=== PATIENT | female | born 1935 | race Caucasian/White ===

== ENCOUNTER 2016-12-01 16:57 | Observation (INO) ==
--- NOTE | 2016-12-01 18:27 | Emergency Department Note ---
Disposition Clinical Impression: Neurological deficit, transient, Left maxillary sinusitis, Tremors of nervous system Disposition: Admitted As Inpatient Condition: Fair Referrals: Meagn Castro DO [Primary Care Provider] - Forms: ED Satisfaction Letter Time of Disposition: 19:36 General Adult HPI - General Chief complaint: ED Neuro Symptoms/Deficit Stated complaint: neuro symptoms since 11/29/16 Time Seen by Provider: 12/01/16 18:22 Source: patient, family Limitations: no limitations Nursing Notes Reviewed: Yes Vital Signs Reviewed: Yes - History of Present Illness Pain Scale: 0 - Related Data Home Medications Medication Instructions Recorded Confirmed Flonase 10/12/16 10/12/16 Loratadine 10/12/16 Losartan 10/12/16 Meclizine 10/12/16 Metoprolol 10/12/16 Pantoprazole Sodium 10/12/16 Vitamin D 10/12/16 Xanax 10/12/16 Allergies Allergy/AdvReac Type Severity Reaction Status Date / Time aspirin Allergy See Verified 10/12/16 18:14 Comments Past Medical History - Past Medical History Medical history: Reports: hypertension Psychiatric history: Reports: anxiety, depression - Social History Smoking Status: Never smoker Smokeless Tobacco Status: No Alcohol use: Reports: none Drug use: Reports: none Physical Exam - General Limitations: no limitations General appearance: alert Course Course Narrative: Patient seen and examined. Stroke workup initiated. Stroke a lot has not been called since patient's last known normal was 2 days ago - Consultations Consultation #1: Hospitalist consulted, Kisha LEIJA was briefed on patient. She has to consult with her physician to see if patient will be problematic if they do not have GI coverage. Time: 19:28 Vital Signs Temperature 97.9 F 12/01/16 17:16 Pulse Rate 99 12/01/16 17:16 Respiratory Rate 16 12/01/16 17:16 Blood Pressure 184/107 12/01/16 17:16 O2 Sat by Pulse Oximetry 98 12/01/16 17:16 Temperature 97.9 F 12/01/16 17:16 Pulse Rate 68 12/01/16 19:00 Respiratory Rate 16 12/01/16 19:00 Blood Pressure 176/100 12/01/16 19:00 O2 Sat by Pulse Oximetry 98 12/01/16 19:00 Oxygen Delivery Oxygen Delivery Room Air Medical Decision Making - MDM Narrative Medical decision making narrative: Mrs. saldivar was 81-year-old female who presents with a history of hypertension and gastro- esophageal reflux disease, the presents with history of acute onset of neurological deficits of verbal aphasia started 2 days ago while patient was on the phone. Patient states she has no history of stroke in the past. Patient states that her symptoms resolved on their own but then today she started having uncontrollable shivering-type tremors and some difficulty remembering events. Patient states she does not know how long her symptoms lasted. Patient's grandson brought her in after noticing that she was acting strangely and dragging her cane around and sit up using it for support. He also noticed that she sounded a little different. Patient's history is concerning for 2 day old stroke. Neurological exam showed no deficits. Patient has a mild right-sided drooped to her smile but otherwise shows no deficits. No loss of sensation. Patient's last known normal was 2 days ago and the patient's symptoms are not improving, so stroke alert was not initiated. Orders have been abbreviated for patient's current stage in her symptoms. Patient's NIH score is 0. Head CT: No intracranial abnormality seen. Patient does have an incidental finding of acute left maxillary sinusitis. Radiologist reading of chest x-ray 1. No active pulmonary disease. 2. Hiatal hernia. Patient's care will be continued with night crew. Dr. Holm has accepted patient for continued care and disposition. - Radiology Data Radiology results reviewed: Yes I reviewed the patient's radiology results. Head CT 12/01/16 18:40 IMPRESSION: No acute intracranial abnormality. Acute left maxillary sinusitis. D/ / Ty Gray MD / Ty Gray MD Interpreting Provider: Ty Gray MD Chest X-Ray 12/01/16 18:43 IMPRESSION: 1. No active pulmonary disease. 2. Hiatal hernia. D/ / Juan Nelson MD / Juan Nelson MD Interpreting Provider: Juan Nelson MD - EKG Data EKG #1 EKG attestation: Yes I reviewed and interpreted this EKG. EKG results narrative: EKG dated 12/01/2016 1857 hrs. shows a sinus rhythm and a ventricular rate of [address] elevations or depressions any leads. EKG looks equivalent to EKG taken 10/17/2014 Alanna - Alanna Situation: Demographics Background: Presenting Complaint, Relevant PMH, Meds, & Allergies Assessment: Vital Signs, Course and respsone to treatment, Exam Concerns, Pertinant Lab Results Recommendation: Recommendation based on pending studies, treatments, or consults Alanna Report Given to: Dr. Mihai Mondragon Repor Time: 19:00 Attestation Statement - Attestation Attestation: I examined this patient and my medical decision-making was reviewed with the FOUNDER & CEO/PA/Advanced Practice Nurse/Resident Physician. I agree with the documented findings, disposition and treatment plan as described except to the extent set forth below. Patient presents to the emergency department with shakiness and speech problems. Onset was 2 days ago. She states on Thursday she was talking to a friend and she had trouble finding her words. She feels shaky today. Family states that she is more confused than normal. She denies any falls or head injuries. On exam she is awake and alert. Appears to have a mild drooping of the right side of the mouth. Moves all extremities symmetrically. NIH scale was 1. Plan. Neurologic and altered mental status workup. Likely admission. Will be signed out to evening or night nurse supervisor.
--- NOTE | 2016-12-01 19:34 | Emergency Department Note ---
Disposition Clinical Impression: Neurological deficit, transient, Left maxillary sinusitis, Tremors of nervous system, Hyponatremia, Hypochloremia Disposition: Admitted As Inpatient Condition: Fair Time of Disposition: 22:02 Neuro HPI - General Chief Complaint: ED Neuro Symptoms/Deficit Stated Complaint: neuro symptoms since 11/29/16 Time Seen by Provider: 12/01/16 18:22 Source: patient, family Limitations: no limitations Nursing Notes Reviewed: Yes Vital Signs Reviewed: Yes - History of Present Illness HPI Narrative: Patient is an 81-year-old female with past medical history of hypertension and gastroesophageal reflux. She is a signout from the day team Dr. Lara and Dr. Miranda. She presented today due to verbal aphasia that began 2 days ago but is now resolved. She also has had confusion and difficulty with some basic tasks like using a credit card the family states is different for the patient. She has also had some mild difficulty with ambulation. Currently, she denies any symptoms. NIH score was 0 on presentation and was 0 again on my initial evaluation. Family states that they do not notice any facial droop, however, there may be mild droop of the left upper lip. Otherwise, rest of her exam was benign. Currently denies any numbness, tingling, weakness. Due to timing, stroke alert was not initiated by first team. Head CT is negative, chest x-ray shows no acute cardiopulmonary process. The rest of her labs are pending at this time. Plan for him to team was to admit for TIA workup. - Related Data Home Medications: Home Medications Medication Instructions Recorded Confirmed Alprazolam [Xanax 0.5 MG Tablet] 0.5 mg PO BID PRN 10/12/16 12/01/16 Cholecalciferol (D-3) [Vitamin D] 1,000 unit PO DAILY 10/12/16 12/01/16 Fluticasone Propionate Nasal 50 mcg NS DAILY 10/12/16 12/01/16 [Flonase] Loratadine [Claritin] 10 mg PO DAILY 10/12/16 12/01/16 Losartan [Cozaar] 25 mg PO BID 10/12/16 12/01/16 Meclizine HCl [Verticalm] 25 mg PO Q8H PRN 10/12/16 12/01/16 Metoprolol [Lopressor] 50 mg PO BID 10/12/16 12/01/16 Pantoprazole Sodium [Protonix] 40 mg PO DAILY 10/12/16 12/01/16 Aspirin 81 mg PO DAILY 12/01/16 12/01/16 Calcium Carbonate/Vitamin D3 1 each PO DAILY 12/01/16 12/01/16 [Calcium 500 + Vit D 200 Caplet] Multivitamin [Multi-Day Vitamins] 1 each PO DAILY 12/01/16 12/01/16 Saline Nasal [place] [[place] Nasal 1 - 2 spray NS Q4-6H PRN 12/01/16 12/01/16 Mercedes] Allergies/Adverse Reactions: Allergies Allergy/AdvReac Type Severity Reaction Status Date / Time aspirin Allergy See Verified 12/01/16 21:50 Comments All systems ED: reviewed and negative except as stated. Past Medical History - Past Medical History Attestation: Yes The following information was validated with the patient. Medical history: Reports: hypertension Psychiatric history: Reports: anxiety, depression - Social History Smoking Status: Never smoker Smokeless Tobacco Status: No Alcohol use: Reports: none Drug use: Reports: none Physical Exam - General Limitations: no limitations General appearance: alert - Head Head exam: atraumatic, normocephalic, normal inspection - Eye Eye exam: Present: normal appearance, PERRL, EOMI - ENT ENT exam: normal oropharynx, mucous membranes moist, other (possible mild droop left upper lip, family states this is not new) - Neck Neck exam: Present: normal inspection, full ROM, trachea midline - Chest Chest inspection: Present: normal inspection, symmetric chest wall rise - Respiratory Respiratory exam: Present: normal lung sounds bilaterally - Cardiovascular Cardiovascular exam: Present: regular rate, normal rhythm, normal heart sounds - Abdominal Exam Abdominal exam: Present: soft, Non-Tender. Absent: tenderness, distention, guarding, rebound, rigidity - Extremities Exam Extremities exam: Present: normal inspection, full ROM. Absent: tenderness, pedal edema - Expanded Lower Extremity Exam Hip/Pelvis exam: Present: normal inspection, full ROM Upper leg exam: Present: normal inspection, full ROM Knee exam: Present: normal inspection, full ROM Lower leg exam: Present: normal inspection, full ROM Ankle exam: Present: normal inspection, full ROM Foot/toe exam: Present: normal inspection, full ROM Neurovascular/Tendon exam: Absent: motor deficit, sensory deficit, tendon deficit - Back Exam Back exam: Present: normal inspection, full ROM. Absent: tenderness - Neurological Exam Neurological exam: Present: alert, oriented X3, CN II-XII intact. Absent: motor sensory deficit - Psychiatric Psychiatric exam: Present: normal affect, normal mood - Skin Skin exam: Present: warm, dry, intact, normal color Course Course Narrative: No focal neuro deficits. Mild tremor of bilateral upper extremities. Currently waiting on the rest of the labs to come back and I will admit for TIA workup. CT of the head was negative for intracranial abnormality but did show left maxillary sinus, chest x-ray negative, EKG NSR. 21:57 Mild hyponatremia and hypochloremia. Normal saline started. Rest of basic bloodwork nonconcerning. Waiting on UA and trop results. Will admit for TIA workup with rec. carotid duplex. Accepted by Dr. Oneil. Vital Signs Temperature 97.9 F 12/01/16 17:16 Pulse Rate 99 12/01/16 17:16 Respiratory Rate 16 12/01/16 17:16 Blood Pressure 184/107 12/01/16 17:16 O2 Sat by Pulse Oximetry 98 12/01/16 17:16 Temperature 97.5 F L 12/02/16 03:04 Pulse Rate 86 12/02/16 03:04 Respiratory Rate 17 12/02/16 03:04 Blood Pressure 184/83 12/02/16 03:04 O2 Sat by Pulse Oximetry 93 L 12/02/16 03:04 Oxygen Delivery Oxygen Delivery Room Air Neuro Symptoms/Deficit - MDM Narrative Medical decision making narrative: No focal neuro deficits. Mild tremor of bilateral upper extremities. Currently waiting on the rest of the labs to come back and I will admit for TIA workup. CT of the head was negative for intracranial abnormality but did show left maxillary sinus, chest x-ray negative, EKG NSR. 21:57 Mild hyponatremia and hypochloremia. Normal saline started. Rest of basic bloodwork nonconcerning. Waiting on UA and trop results. Will admit for TIA workup with rec. carotid duplex. Accepted by Dr. Oneil. - Medical Records Medical records reviewed: Yes I reviewed the patient's medical records. - Lab Data Lab results reviewed: Yes I reviewed the patient's lab results. Result diagrams: 12/01/16 21:14 12/01/16 21:14 Lab Results 12/01/16 12/01/16 12/01/16 Range/Units 21:14 21:14 21:14 WBC 10.1 D (4.3-11.1) K/mcL RBC 3.81 L (3.82-4.97) M/mcL Hgb 12.1 (11.5-15.4) g/dL Hct 36.1 (35.3-44.9) % MCV 94.8 (83.0-100.0) fL MCH 31.8 (28.0-33.3) pg MCHC 33.5 (31.6-35.5) g/dL RDW 11.3 L (11.5-14.5) % Plt Count 286 (140-400) K/mcL MPV 9.3 L (9.4-12.4) fL Immature Gran % 0.6 (0-4) % Seg Neutrophils % 77.9 % Lymphocytes % 14.7 % Monocytes % 6.3 % Eosinophils % 0.3 % Basophils % 0.2 % Neutrophils # 7.9 (1.6-8.9) K/mcL Lymphocytes # 1.5 (0.6-4.6) K/mcL Monocytes # 0.6 (0.0-1.3) K/mcL Eosinophils # 0.0 (0.0-0.6) K/mcL Basophils # 0.0 (0.0-0.2) K/mcL PT (9.4-12.1) Seconds INR APTT (26.0-36.0) Seconds Sodium 125 L (136-145) mEq/L Potassium 4.7 H (3.5-4.5) mEq/L Chloride 92 L (98-109) mEq/L Carbon Dioxide 22 (19-29) mEq/L BUN 13 (7-20) mg/dL Creatinine 0.92 (0.57-1.11) mg/dL Est GFR ( Amer) > 60 (> 60) Est GFR (Non-Af Amer) 59 L (> 60) BUN/Creatinine Ratio 14 (6-26) Glucose 97 (70-99) mg/dL Calculated Osmolality 260 L (280-300) Calcium 9.9 (8.6-10.8) mg/dL Troponin I 0.01 (0-0.03) ng/mL 12/01/16 Range/Units 21:14 WBC (4.3-11.1) K/mcL RBC (3.82-4.97) M/mcL Hgb (11.5-15.4) g/dL Hct (35.3-44.9) % MCV (83.0-100.0) fL MCH (28.0-33.3) pg MCHC (31.6-35.5) g/dL RDW (11.5-14.5) % Plt Count (140-400) K/mcL MPV (9.4-12.4) fL Immature Gran % (0-4) % Seg Neutrophils % % Lymphocytes % % Monocytes % % Eosinophils % % Basophils % % Neutrophils # (1.6-8.9) K/mcL Lymphocytes # (0.6-4.6) K/mcL Monocytes # (0.0-1.3) K/mcL Eosinophils # (0.0-0.6) K/mcL Basophils # (0.0-0.2) K/mcL PT 11.4 (9.4-12.1) Seconds INR 1.1 APTT 28.7 (26.0-36.0) Seconds Sodium (136-145) mEq/L Potassium (3.5-4.5) mEq/L Chloride (98-109) mEq/L Carbon Dioxide (19-29) mEq/L BUN (7-20) mg/dL Creatinine (0.57-1.11) mg/dL Est GFR ( Amer) (> 60) Est GFR (Non-Af Amer) (> 60) BUN/Creatinine Ratio (6-26) Glucose (70-99) mg/dL Calculated Osmolality (280-300) Calcium (8.6-10.8) mg/dL Troponin I (0-0.03) ng/mL - Radiology Data Radiology results reviewed: Yes I reviewed the patient's radiology results. Head CT 12/01/16 18:40 IMPRESSION: No acute intracranial abnormality. Acute left maxillary sinusitis. D/ / Ty Gray MD / Ty Gray MD Interpreting Provider: Ty Gray MD Chest X-Ray 12/01/16 18:43 IMPRESSION: 1. No active pulmonary disease. 2. Hiatal hernia. D/ / Juan Nelson MD / Juan Nelson MD Interpreting Provider: Juan Nelson MD Stroke Scale - Level of Consciousness LOC: Alert - LOC Questions LOC Questions: Answers both correctly - LOC Commands LOC Commands: Performs both correctly - Best Gaze Best Gaze: Normal - Visual Visual: No visual loss - Facial Palsy Facial Palsy: Normal - Motor Arms Motor Arm-Left: No drift for 10 seconds Motor Arm-Right: No drift for 10 seconds - Motor Legs Motor Leg-Left: No drift for 5 seconds Motor Leg-Right: No drift for 5 seconds - Limb Ataxia Limb Ataxia: Absent of affected limb too weak to perform exam - Sensory Sensory: Normal - Best Language Best Language: No aphasia - Dysarthria Dysarthria: Normal - Extinction and Inattention Extinction and Inattention: Normal - NIHSS Total Score NIHSS Total Score: 0 S.B.A.R. - S.B.A.R. Situation: Demographics, MOA Background: Presenting Complaint, Relevant PMH, Meds, & Allergies Assessment: Vital Signs, Course and respsone to treatment, Exam Concerns, Patient/Family Expectation, Pertinant Lab Results, Outstanding Labs Recommendation: Barrier(s) to disposition, Recommendation based on pending studies, treatments, or consults S.B.A.R. Report Given to: Dr. Bangura S.B.A.RLeonard Repor Time: 22:01 Attestation Statement - Attestation Attestation: Dr. Guallpa note: Patient seen in conjunction with resident Dr. Holm; please see his chart for complete documentation. I spent [id number] time with the patient and I agree with the patient's treatment and disposition. CT scan results reviewed. No focal neurologic signs at the time of admission. No indication for thrombolytics due to this symptom onset being days ago. Admitted in stabilized/ improved condition
[2016-12-01 21:39] LABS: Basophils % 0.2 %; Eosinophils % 0.3 %; Hematocrit 36.1 % (35.3-44.9); Hemoglobin 12.1 g/dL (11.5-15.4); Immature Granulocytes % 0.6 % (0-4); Lymphocytes # 1.5 K/mcL (0.6-4.6); Lymphocytes % 14.7 %; Mean Corpuscular HGB Conc 33.5 g/dL (31.6-35.5); Mean Corpuscular Hemoglobin 31.8 pg (28.0-33.3); Mean Corpuscular Volume 94.8 fL (83.0-100.0); Mean Platelet Volume 9.3 fL (9.4-12.4); Monocytes # 0.6 K/mcL (0.0-1.3); Monocytes % 6.3 %; Platelet Count 286 K/mcL (140-400); Red Blood Count 3.81 M/mcL (3.82-4.97); Red Cell Distribution Width 11.3 % (11.5-14.5); Segmented Neutrophils % 77.9 %
[2016-12-01 21:40] LABS: INR 1.1; Neutrophils # 7.9 K/mcL (1.6-8.9); Prothrombin Time 11.4 Seconds (9.4-12.1)
[2016-12-01 21:43] LABS: Activated Partial Thrombo Time 28.7 Seconds (26.0-36.0)
[2016-12-01 21:46] LABS: BUN/Creatinine Ratio 14 (6-26); Blood Urea Nitrogen 13 mg/dL (7-20); Calcium 9.9 mg/dL (8.6-10.8); Carbon Dioxide 22 mEq/L (19-29); Chloride 92 mEq/L (98-109); Glucose 97 mg/dL (70-99); Osmolality,Calculated 260 (280-300); Potassium 4.7 mEq/L (3.5-4.5); Sodium 125 mEq/L (136-145); eGFR For African Americans > 60 (> 60); eGFR For Non-African Americans 59 (> 60)
[2016-12-02] MEDS: 0.9 % Sodium Chloride 1,000 ML IVC SCH ×2 (00:16→15:36)
[2016-12-02 00:22] LABS: Bilirubin,Urine Negative (Negative); Blood,Urine Trace (Negative); Clarity,Urine Clear (Clear); Color,Urine Yellow (Yellow); Glucose,Urine (UA) Normal (Normal); Ketones,Urine Negative (Negative); Leukocyte Esterase,Urine Small (Negative); Nitrite,Urine Negative (Negative); PH,Urine 6.5 pH Units (5.0-8.0); Protein,Urine Negative (Neg-Trace); Specific Gravity,Urine 1.008 (1.010-1.025); Urobilinogen,Urine Normal (Normal)
[2016-12-02 00:24] LABS: Bacteria,Urine None Seen per hpf (None-Few); Hyaline Casts,Urine None Seen per lpf (None-Few); Squamous Epithelial Cell,Urine Many per lpf (None-Few); WBC,Urine 0-3 per hpf (0-3)
[2016-12-02] MEDS ORDERED: ALPRAZolam 0.5 MG TABLET PO PRN (06:04)
[2016-12-02] MEDS ORDERED: Naloxone 0.4 MG/ML INJ IVP PRN (06:07)
[2016-12-02] MEDS ORDERED: *HR* HYDROcodone/Acet 5/325 mg TABLET PO PRN (06:07)
[2016-12-02] MEDS ORDERED: Ondansetron 4 MG/2 ML VIAL IVP PRN (06:07)
[2016-12-02] MEDS ORDERED: Acetaminophen 325 MG TABLET PO PRN (06:07)
[2016-12-02 06:49] LABS: Chol/HDL Ratio 2.7 (0-4.9)
[2016-12-02] MEDS ORDERED: Fluticasone Propionate Nasal 50 MCG/SPRAY BOTTLE NS SCH (09:00)
[2016-12-02] MEDS: Loratadine 10 MG TABLET PO SCH (10:03)
[2016-12-02] MEDS: Cholecalciferol (D-3) 1,000 UNIT TABLET PO SCH (10:03)
[2016-12-02] MEDS: Multivit/Ca/Min/Fe/FA 1 TAB TABLET PO SCH (10:03)
[2016-12-02] MEDS: Aspirin 81 MG TAB.CHEW PO SCH (10:03)
[2016-12-02] MEDS: Calcium 500-Vit D3 PO SCH (10:08)
--- NOTE | 2016-12-02 11:23 | Internal Med History&Physical ---
Date of Encounter: 12/01/16 Time of Encounter: 23:45 Internal Medicine - H&P: HPI Chief complaint: slurred speech, confusion x 2 days. Admitted From: Emergency Dept Plans for Post Hospital Care: Home History of present illness: Ms. Rolle is a 81 year old female with medical history significant for hypertension and GERD. She presents with slurring of speech and some confusion starting 2 days ago. Symptoms have completely resolved, but her daughter advised she comes to the hospital for evaluation. As per report from ED personnel, her daughter had said patient had difficulty with performing usual activities of daily living and had some trouble with ambulation. No personal history of CVA OR tia.She reported no on-going symptoms at presentation, she reported none during my interview and examination. Significantly, she denies focal weakness, numbness/paresthesias, dizziness, blurring of vision and new gait. NIH score was 0 on presentation. Blood pressure was markedly elevated at presentation. A 10-point ROS was performed. Positives and relevant negatives are detailed above, system-symptom not mentioned is assumed negative unless otherwise stated. She is FULL CODE as per discussion. She reports allegy to aspirin, but is unable to tell me type of reaction. Medical history: Reports: hypertension Psychiatric history: Reports: anxiety, depression Smoking Status: Never smoker Smokeless Tobacco Status: No Alcohol use: Reports: none Drug use: Reports: none Vital Signs Temperature 97.9 F 12/01/16 17:16 Pulse Rate 99 12/01/16 17:16 Respiratory Rate 16 12/01/16 17:16 Blood Pressure 184/107 12/01/16 17:16 O2 Sat by Pulse Oximetry 98 12/01/16 17:16 Temperature 97.5 F L 12/02/16 03:04 Pulse Rate 86 12/02/16 03:04 Respiratory Rate 17 12/02/16 03:04 Blood Pressure 184/83 12/02/16 03:04 O2 Sat by Pulse Oximetry 93 L 12/02/16 03:04 Lab Results 12/01/16 12/01/16 12/01/16 Range/Units 21:14 21:14 21:14 WBC 10.1 D (4.3-11.1) K/mcL RBC 3.81 L (3.82-4.97) M/mcL Hgb 12.1 (11.5-15.4) g/dL Hct 36.1 (35.3-44.9) % MCV 94.8 (83.0-100.0) fL MCH 31.8 (28.0-33.3) pg MCHC 33.5 (31.6-35.5) g/dL RDW 11.3 L (11.5-14.5) % Plt Count 286 (140-400) K/mcL MPV 9.3 L (9.4-12.4) fL Immature Gran % 0.6 (0-4) % Seg Neutrophils % 77.9 % Lymphocytes % 14.7 % Monocytes % 6.3 % Eosinophils % 0.3 % Basophils % 0.2 % Neutrophils # 7.9 (1.6-8.9) K/mcL Lymphocytes # 1.5 (0.6-4.6) K/mcL Monocytes # 0.6 (0.0-1.3) K/mcL Eosinophils # 0.0 (0.0-0.6) K/mcL Basophils # 0.0 (0.0-0.2) K/mcL PT (9.4-12.1) Seconds INR APTT (26.0-36.0) Seconds Sodium 125 L (136-145) mEq/L Potassium 4.7 H (3.5-4.5) mEq/L Chloride 92 L (98-109) mEq/L Carbon Dioxide 22 (19-29) mEq/L BUN 13 (7-20) mg/dL Creatinine 0.92 (0.57-1.11) mg/dL Est GFR ( Amer) > 60 (> 60) Est GFR (Non-Af Amer) 59 L (> 60) BUN/Creatinine Ratio 14 (6-26) Glucose 97 (70-99) mg/dL Calculated Osmolality 260 L (280-300) Calcium 9.9 (8.6-10.8) mg/dL Troponin I 0.01 (0-0.03) ng/mL 12/01/16 Range/Units 21:14 WBC (4.3-11.1) K/mcL RBC (3.82-4.97) M/mcL Hgb (11.5-15.4) g/dL Hct (35.3-44.9) % MCV (83.0-100.0) fL MCH (28.0-33.3) pg MCHC (31.6-35.5) g/dL RDW (11.5-14.5) % Plt Count (140-400) K/mcL MPV (9.4-12.4) fL Immature Gran % (0-4) % Seg Neutrophils % % Lymphocytes % % Monocytes % % Eosinophils % % Basophils % % Neutrophils # (1.6-8.9) K/mcL Lymphocytes # (0.6-4.6) K/mcL Monocytes # (0.0-1.3) K/mcL Eosinophils # (0.0-0.6) K/mcL Basophils # (0.0-0.2) K/mcL PT 11.4 (9.4-12.1) Seconds INR 1.1 APTT 28.7 (26.0-36.0) Seconds Sodium (136-145) mEq/L Potassium (3.5-4.5) mEq/L Chloride (98-109) mEq/L Carbon Dioxide (19-29) mEq/L BUN (7-20) mg/dL Creatinine (0.57-1.11) mg/dL Est GFR ( Amer) (> 60) Est GFR (Non-Af Amer) (> 60) BUN/Creatinine Ratio (6-26) Glucose (70-99) mg/dL Calculated Osmolality (280-300) Calcium (8.6-10.8) mg/dL Troponin I (0-0.03) ng/mL Head CT 12/01/16 18:40 No acute intracranial abnormality. Acute left maxillary sinusitis. Chest X-Ray 12/01/16 18:43 No active pulmonary disease. Hiatal hernia. IMP Probable intermittent encephalopathy related to uncontrolled hypertension, however evaluate for TIA/CVA Severe hypertension CT evidence of acute left maxillary sinusitis Mild hyponatremia Chronic morbidities Hypertension Anxiety/depression. PLAN Admit to telemetry Allow for permissive hypertension until acute stroke is excluded by MRI MRI/MRA head and neck. Evaluate for cardiovascular risk factor. Continue medications for chronic morbidities DVT prophylaxis Past Med Surg Social Fam HX - Past Medical History Medical history: hypertension Psychiatric history: anxiety, depression - Past Surgical History Surgical History: appendectomy - Social History Smoking Status: Never smoker Smokeless Tobacco Status: No Alcohol use: none Drug use: none - Family History Mother Hx Family Cancer: Yes (breast cancer) Father Hx Family Neuromuscular Disorders: Yes (CVA) Internal Medicine - H&P: Meds Alprazolam [Xanax 0.5 MG Tablet] 0.5 mg PO BID PRN 10/12/16 [History] Cholecalciferol (D-3) [Vitamin D] 1,000 unit PO DAILY 10/12/16 [History] Fluticasone Propionate Nasal [Flonase] 50 mcg NS DAILY 10/12/16 [History] Loratadine [Claritin] 10 mg PO DAILY 10/12/16 [History] Meclizine HCl [Verticalm] 25 mg PO Q8H PRN 10/12/16 [History] Metoprolol [Lopressor] 50 mg PO BID 10/12/16 [History] Pantoprazole Sodium [Protonix] 40 mg PO DAILY 10/12/16 [History] Aspirin 81 mg PO DAILY 12/01/16 [History] Calcium Carbonate/Vitamin D3 [Calcium 500-Vit D3 200 Caplet] 1 each PO DAILY [History] Multivitamin [Multi-Day Vitamins] 1 each PO DAILY 12/01/16 [History] Saline Nasal [place] [[place] Nasal [place]] 1 - 2 spray NS Q4-6H PRN 12/01/16 [ History] Losartan Potassium [Cozaar] 50 mg PO BID #60 tab 12/03/16 [Rx] Pravastatin Sodium [Pravachol] 20 mg PO HS #30 tablet 12/03/16 [Rx] Allergies aspirin Allergy (Verified 12/01/16 21:50) See Comments can't take full strength aspirin, does take the low dose aspirin daily for her heart. All Systems PM: A 10-system review of systems was performed and is negative for pertinent findings except as documented above in the HPI. - Constitutional Vitals: Temp Pulse Resp BP Pulse Ox 98.2 F 77 16 165/81 95 12/02/16 07:19 12/02/16 07:19 12/02/16 07:19 12/02/16 07:19 12/02/16 07:19 General appearance: Present: A&O X 3, pleasant, no acute distress, answers questions appropriately - Head Head exam: Present: normal inspection - Eye Eye exam: Present: EOMI, PERRL - Neck Neck exam general surgery: Present: supple, trachea midline. Absent: lymphadenopathy - Respiratory Respiratory exam: Present: CTAB - Cardiovascular Cardiovascular exam: Present: JVD, RRR, +S1, +S2 - GI/Abdominal GI/Abdominal exam: Present: normal bowel sounds, soft. Absent: distended, guarding, hepatomegaly, mass, splenomegaly, no peritoneal signs - Extremities Exam Extremities exam: Absent: pedal edema - Neurological Exam Neurological exam: Present: abnormal gait, CN II-XII intact, motor sensory deficit, oriented X3, no focal deficits, strengths equal and symetr throughout. Absent: pronater drift, facial droop, speech deficit - Psychiatric Additional comments: mood is good, affect is congruent, speech is normal, thought process is logical and goal-directed. Internal Med - H&P Results - Labs CBC & Chem 7: 12/01/16 21:14 12/03/16 04:06 Labs: Urine 12/01/16 Range/Units 23:55 Urine Color Yellow (Yellow) Urine Clarity Clear (Clear) Urine pH 6.5 (5.0-8.0) pH Units Ur Specific [place] 1.008 L (1.010-1.025) Urine Protein Negative (Neg-Trace) mg/dL Urine Glucose (UA) Normal (Normal) mg/dL
--- NOTE | 2016-12-02 12:00 | Internal Med Progress Note ---
Date of Encounter: 12/02/16 Time of Encounter: 11:20 - Assessment and plan (1) Neurological deficit, transient Current Visit: Yes Status: Acute Assessment and plan: Improved speech. No other focal deficits. Awaiting MRI of the brain for further evaluation for possible underlying TIA/CVA. On aspirin. Will add statin (2) Essential hypertension Current Visit: Yes Status: Acute Assessment and plan: Improved but still elevated. Continue current medications. Will adjust antihypertensive regimen to control blood pressure better (3) Hyponatremia Current Visit: Yes Status: Acute - Subjective Interval history: Patient is feeling better today. Denies any dizziness or lightheadedness. No nausea or vomiting. No slurred speech. No numbness or weakness reported. - Constitutional Vitals: Temp Pulse Resp BP Pulse Ox 98.3 F 66 15 166/84 97 12/02/16 11:25 12/02/16 11:25 12/02/16 11:25 12/02/16 11:25 12/02/16 11:25 General appearance: Present: cooperative, A&O X 2, pleasant, no acute distress, answers questions appropriately - Neck Neck exam general surgery: Present: supple, trachea midline. Absent: lymphadenopathy - Respiratory Respiratory exam: Present: CTAB. Absent: accessory muscle use, rales, rhonchi, wheezes - Cardiovascular Cardiovascular exam: Present: RRR, +S1, +S2. Absent: diastolic murmur, gallop, rubs, systolic murmur - GI/Abdominal GI/Abdominal exam: Present: normal bowel sounds, soft, no peritoneal signs. Absent: distended, tenderness - Neurological Exam Neurological exam: Present: CN II-XII intact, oriented X3, no focal deficits. Absent: facial droop, speech deficit Internal Medicine: Result - Labs CBC & Chem 7: 12/01/16 21:14 12/01/16 21:14 Labs: Urine 12/01/16 Range/Units 23:55 Urine Color Yellow (Yellow) Urine Clarity Clear (Clear) Urine pH 6.5 (5.0-8.0) pH Units Ur Specific [place] 1.008 L (1.010-1.025) Urine Protein Negative (Neg-Trace) mg/dL Urine Glucose (UA) Normal (Normal) mg/dL - ABG Interpretation ABG results: PT/INR, D-dimer PT 11.4 Seconds (9.4-12.1) 12/01/16 21:14 Consult Discharge Plan - Plan Referrals: Megan Castro DO [Primary Care Provider] - - Attending Attestation This document has been at least partially created by [employer] recognition technology by Dr. Bhatia. Errors in grammar, wording or other phrases may exist. If errors are found after the documentation is signed, they will be addressed individually in the addendum section of this document when appropriate.
[2016-12-02] MEDS: *HR* Heparin 5,000 UNIT/ML VIAL SQ SCH (17:41)
--- NOTE | 2016-12-02 21:18 | Electrocardiograph Report ---
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
[2016-12-03] MEDS: 0.9 % Sodium Chloride 1,000 ML IVC SCH ×2 (04:13)
[2016-12-03 06:17] LABS: BUN/Creatinine Ratio 11 (6-26); Blood Urea Nitrogen 9 mg/dL (7-20); Calcium 9.7 mg/dL (8.6-10.8); Carbon Dioxide 25 mEq/L (19-29); Chloride 101 mEq/L (98-109); Glucose 90 mg/dL (70-99); Osmolality,Calculated 276 (280-300); Potassium 3.9 mEq/L (3.5-4.5); eGFR For African Americans > 60 (> 60); eGFR For Non-African Americans > 60 (> 60)
[2016-12-03 06:21] LABS: Sodium 134 mEq/L (136-145)
[2016-12-03] MEDS: *HR* Heparin 5,000 UNIT/ML VIAL SQ SCH (06:31)
[2016-12-03] MEDS: Cholecalciferol (D-3) 1,000 UNIT TABLET PO SCH (08:06)
[2016-12-03] MEDS: Loratadine 10 MG TABLET PO SCH (08:07)
[2016-12-03] MEDS: Multivit/Ca/Min/Fe/FA 1 TAB TABLET PO SCH (08:07)
[2016-12-03] MEDS: Aspirin 81 MG TAB.CHEW PO SCH (08:07)
[2016-12-03] MEDS: Calcium 500-Vit D3 PO SCH (08:08)
--- NOTE | 2016-12-03 11:47 | Discharge Summary ---
Date of Encounter: 12/03/16 Time of Encounter: 11:41 - Discharge Diagnosis (1) Neurological deficit, transient Priority: Primary Status: Acute (2) Essential hypertension Priority: Secondary Status: Acute (3) Hyponatremia Priority: Secondary Status: Acute - Discharge Medications Prescriptions: Losartan Potassium [Cozaar] 50 mg PO BID #60 tab Pravastatin Sodium [Pravachol] 20 mg PO HS #30 tablet Home Medications: Alprazolam [Xanax 0.5 MG Tablet] 0.5 mg PO BID PRN 10/12/16 [History] Cholecalciferol (D-3) [Vitamin D] 1,000 unit PO DAILY 10/12/16 [History] Fluticasone Propionate Nasal [Flonase] 50 mcg NS DAILY 10/12/16 [History] Loratadine [Claritin] 10 mg PO DAILY 10/12/16 [History] Meclizine HCl [Verticalm] 25 mg PO Q8H PRN 10/12/16 [History] Metoprolol [Lopressor] 50 mg PO BID 10/12/16 [History] Pantoprazole Sodium [Protonix] 40 mg PO DAILY 10/12/16 [History] Aspirin 81 mg PO DAILY 12/01/16 [History] Calcium Carbonate/Vitamin D3 [Calcium 500-Vit D3 200 Caplet] 1 each PO DAILY [History] Multivitamin [Multi-Day Vitamins] 1 each PO DAILY 12/01/16 [History] Saline Nasal [place] [[place] Nasal [place]] 1 - 2 spray NS Q4-6H PRN 12/01/16 [ History] Losartan Potassium [Cozaar] 50 mg PO BID #60 tab 12/03/16 [Rx] Pravastatin Sodium [Pravachol] 20 mg PO HS #30 tablet 12/03/16 [Rx] Allergies/Adverse Reactions: Allergies aspirin Allergy (Verified 12/01/16 21:50) See Comments can't take full strength aspirin, does take the low dose aspirin daily for her heart. Procedures/tests Complete & Pending: Procedures Performed prior 72 hours Category Date Time Status MR angio head wo con [MR] Routine MRI 12/02/16 06:02 Completed MR angio neck wo/w con [MR] Routine MRI 12/02/16 06:02 Completed MR head/brain wo con [MR] Routine MRI 12/02/16 06:01 Completed Date of admission: 12/01/16 22:09 Primary care physician: Megan Castro DO Consults: 12/02/16 08:14 PT [Consult to Physical Therapy] [CONS] Routine Comment: Evaluate, develop and implement POC 12/02/16 08:15 OT [Consult to Occupational Therapy] [CONS] Routine Comment: Evaluate, develop and implement POC 12/02/16 15:24 Consult to Wire Frame Dipper [CONS] Routine Reason for SW Consult: discharge planning Discharging clinician: Gonsalo Bhatia Anticipated date of discharge: 12/03/16 - Patient Status Disposition: Home Health Service Condition: Good Functional capacity at discharge: independent ambulation Overall status at discharge: patient is progressing back to baseline - Discharge Instructions Instructions: Pravastatin (By mouth), Chronic Hypertension (DC) Follow Up With: Megan Castro DO [Primary Care Provider] - (In 1-2 weeks) Additional Instructions: Outpatient physical therapy - Diet and Activity Activity: increase activity as tolerated Diet: low fat, low cholesterol, low salt diet Hospital course: Ms. Rolle is a 81 year old female with history of essential hypertension who was observed in the hospital after presenting to the ER with complaints of slurred speech and confusion. She was evaluated with a CT scan of the head which did not show any acute stroke. She was monitored in the hospital and underwent MRA of the brain, MRA of the neck and head. These studies also did not show any signs suggestive of acute stroke. Patient did not have any stenosis in her internal carotids. Patient did have some stenosis at the origin of the left common carotid artery. The patient's symptoms have completely subsided now and she is doing much better. She does have uncontrolled hypertension and her blood pressure has gone up as high as 214 /113 mm Hg. I have increased the dosage of losartan to 50 mg by mouth twice a day. Her blood pressure is now better controlled. She could be having encephalopathic symptoms related to uncontrolled hypertension. At this time, patient is stable to be discharged home. She was evaluated by physical therapy recommended outpatient PT. She will follow up with her primary care provider for further management of her chronic medical conditions. - Time Spent with Patient Total time spent providing and/or coordinating discharge services: Greater than 30 minutes (35 min) - Constitutional Vitals: Temp Pulse Resp BP Pulse Ox 98.3 F 73 18 179/89 95 12/03/16 09:21 12/03/16 09:21 12/03/16 07:30 12/03/16 09:21 12/03/16 09:21 General appearance: Present: cooperative, A&O X 3, pleasant, no acute distress, answers questions appropriately - Respiratory Respiratory exam: Present: CTAB. Absent: accessory muscle use, rales, rhonchi, wheezes - Cardiovascular Cardiovascular exam: Present: RRR, +S1, +S2. Absent: diastolic murmur, gallop, rubs, systolic murmur - GI/Abdominal GI/Abdominal exam: Present: normal bowel sounds, soft, no peritoneal signs. Absent: distended, tenderness - Extremities Exam Extremities exam: Present: warm, radial pulses palpable and symetrical. Absent : calf tenderness, cyanotic, pedal edema - Attending Attestation This document has been at least partially created by [employer] recognition technology by Dr. Bhatia. Errors in grammar, wording or other phrases may exist. If errors are found after the documentation is signed, they will be addressed individually in the addendum section of this document when appropriate.
[2016-12-03 11:49] VITALS: BP 160/80
--- NOTE | 2016-12-03 13:23 | Physician Discharge Referral ---
Home Health/Hosp Referral Info Transfer to: Home Health - Diagnosis (1) Neurological deficit, transient Priority: Primary Status: Acute (2) Essential hypertension Priority: Secondary Status: Acute (3) Hyponatremia Priority: Secondary Status: Acute - Respiratory Orders Smoking Cessation: Smoking cessation has been advised. For more information, call the [place] Tobacco Quit Line at 7-018-RIOA-NOW. - Diet/Nutrition Diet/Nutrition Orders: No Added Salt (ORIANA), Cardiac, No Concentrated Sweets - Activity Activity Orders: Ambulate - Services Needed Following services are medically necessary services: Physical Therapy, Occupational Therapy - Transfer Medications Prescriptions: Losartan Potassium [Cozaar] 50 mg PO BID #60 tab Pravastatin Sodium [Pravachol] 20 mg PO HS #30 tablet Home Medications: Alprazolam [Xanax 0.5 MG Tablet] 0.5 mg PO BID PRN 10/12/16 [History] Cholecalciferol (D-3) [Vitamin D] 1,000 unit PO DAILY 10/12/16 [History] Fluticasone Propionate Nasal [Flonase] 50 mcg NS DAILY 10/12/16 [History] Loratadine [Claritin] 10 mg PO DAILY 10/12/16 [History] Meclizine HCl [Verticalm] 25 mg PO Q8H PRN 10/12/16 [History] Metoprolol [Lopressor] 50 mg PO BID 10/12/16 [History] Pantoprazole Sodium [Protonix] 40 mg PO DAILY 10/12/16 [History] Aspirin 81 mg PO DAILY 12/01/16 [History] Calcium Carbonate/Vitamin D3 [Calcium 500-Vit D3 200 Caplet] 1 each PO DAILY [History] Multivitamin [Multi-Day Vitamins] 1 each PO DAILY 12/01/16 [History] Saline Nasal [place] [[place] Nasal [place]] 1 - 2 spray NS Q4-6H PRN 12/01/16 [ History] Losartan Potassium [Cozaar] 50 mg PO BID #60 tab 12/03/16 [Rx] Pravastatin Sodium [Pravachol] 20 mg PO HS #30 tablet 12/03/16 [Rx] Allergies/Adverse Reactions: Allergies aspirin Allergy (Verified 12/01/16 21:50) See Comments can't take full strength aspirin, does take the low dose aspirin daily for her heart. Certification: Further, I certify that my clinical findings support that this patient is homebound (i.e. absences from home require considerable and taxing effort and are for medical reasons or hindu services or infrequently or short duration when for other reasons) because: Homebound Reason: Patient requires assistance of a person or device to safely leave home Attestation: My signature below is to certify that this patient is under my care and that I, or nurse practitioner, or a physician's assistant import manager working with me, has a face-to -face encounter with this patient.
== END 2016-12-03 13:36 | disposition home health service (06) ==
LOC: EMEROO 16:57 → 3BNU 16:57 → SUATTDRO 22:09 → 3BNU 23:01
PROVIDERS: ADMIT Family Medicine; ATTEND Internal Medicine

== ENCOUNTER 2017-11-04 06:04 | Inpatient (IN) ==
[2017-11-04] MEDS ORDERED: *HR* Morphine 2 MG/ML SYRINGE IVP ONE (06:27)
[2017-11-04] MEDS ORDERED: Ondansetron 4 MG/2 ML VIAL IVP ONE (06:27)
--- NOTE | 2017-11-04 06:33 | Emergency Department Note ---
Disposition Clinical Impression: Left hip pain Fall Qualifiers: Encounter type: initial encounter Qualified Code(s): W19.XXXA - Unspecified fall, initial encounter Syncope Qualifiers: Syncope type: unspecified Qualified Code(s): R55 - Syncope and collapse Disposition: Still a Patient Condition: Fair Referrals: Megan Castro DO [Primary Care Provider] - Forms: ED Satisfaction Letter Fall HPI - General Chief Complaint: ED Fall Stated Complaint: Fall, left side/leg pain, syncope Time Seen by Provider: 11/04/17 06:14 Source: patient, family Mode of arrival: ambulatory Limitations: no limitations Nursing Notes Reviewed: Yes Vital Signs Reviewed: Yes - History of Present Illness HPI Narrative: 82-year-old female with a history of hypertension presents for evaluation after a fall. Patient states that she was getting up to use the restroom. Patient was ambulating to the restroom with the assistance of a cane. Patient states that prior to using the restroom she felt dizzy and nearly passed out. Patient is not able to accurately recall if she lost consciousness. Patient states that she fell backward striking her left hip against the bathtub. The fall was heard by the son who was immediately able to see the patient. Son states the patient was alert and responsive on initial exam. Patient prodrome prior to the syncopal episode was dizziness. Patient denied any chest pain or short of breath. No nausea or vomiting. No abdominal pain. Patient's primary complaint in the emergency department his left hip pain worse with palpation. Patient denies any cervical thoracic or lumbar pain. Patient is not on any blood thinners. - Related Data Home Medications Medication Instructions Recorded Confirmed ALPRAZolam [Xanax 0.5 MG Tablet] 0.5 mg PO BID PRN 10/12/16 12/01/16 Cholecalciferol (D-3) [Vitamin D] 1,000 unit PO DAILY 10/12/16 12/01/16 Fluticasone Propionate Nasal 50 mcg NS DAILY 10/12/16 12/01/16 [Flonase] Loratadine [Claritin] 10 mg PO DAILY 10/12/16 12/01/16 Meclizine HCl [Verticalm] 25 mg PO Q8H PRN 10/12/16 12/01/16 Metoprolol [Lopressor] 50 mg PO BID 10/12/16 12/01/16 Pantoprazole Sodium [Protonix] 40 mg PO DAILY 10/12/16 12/01/16 Aspirin 81 mg PO DAILY 12/01/16 12/01/16 Calcium Carbonate/Vitamin D3 1 each PO DAILY 12/01/16 12/01/16 [Calcium 500-Vit D3 200 Caplet] Multivitamin [Multi-Day Vitamins] 1 each PO DAILY 12/01/16 12/01/16 Saline Nasal [place] [[place] Nasal 1 - 2 spray NS Q4-6H PRN 12/01/16 12/01/16 [place]] Previous Rx's Medication Instructions Recorded Losartan Potassium [Cozaar] 50 mg PO BID #60 tab 12/03/16 Pravastatin Sodium [Pravachol] 20 mg PO HS #30 tablet 12/03/16 Allergies Allergy/AdvReac Type Severity Reaction Status Date / Time aspirin Allergy See Verified 12/01/16 21:50 Comments All systems ED: reviewed and negative except as stated. Constitutional: Reports: as per HPI. Denies: fever Eyes: Reports: as per HPI ENT ED: Reports: as per HPI Cardiovascular: Reports: as per HPI Gastrointestinal: Reports: as per HPI. Denies: abdominal pain, nausea, vomiting Genitourinary: Reports: as per HPI Musculoskeletal: Reports: as per HPI. Denies: back pain Integumentary: Reports: as per HPI Neurological: Reports: as per HPI. Denies: weakness, numbness Psychiatric: Reports: as per HPI Endocrine: Reports: as per HPI Hematological/Lymphatic: Reports: as per HPI Fall PMH - Past Medical History Medical history: Reports: hypertension, renal disease Surgical history: Reports: appendectomy Psychiatric history: Reports: anxiety, depression - Social History Smoking Status: Unknown if ever smoked Alcohol use: Reports: none Drug use: Reports: none Physical Exam - General Limitations: no limitations General appearance: alert, in no apparent distress - Head Head exam: atraumatic, normocephalic, normal inspection - Eye Eye exam: Present: normal appearance, PERRL, EOMI. Absent: nystagmus, miosis, mydriasis - ENT ENT exam: normal exam, mucous membranes moist - Neck Neck exam: Present: normal inspection, trachea midline - Chest Chest inspection: Present: normal inspection, symmetric chest wall rise - Respiratory Respiratory exam: Present: normal lung sounds bilaterally. Absent: respiratory distress - Cardiovascular Cardiovascular exam: Present: regular rate, normal rhythm, systolic murmur (3/6 right sternal border) - Abdominal Exam Abdominal exam: Present: soft, Non-Tender. Absent: guarding, rebound - Extremities Exam Extremities exam: Present: normal inspection. Absent: pedal edema - Expanded Lower Extremity Exam Hip/Pelvis exam: Present: normal inspection, tenderness (Left sided tenderness in the lateral compartment without overlying erythema or ecchymosis). Absent: swelling, abrasion, ecchymosis, deformity, erythema Upper leg exam: Present: normal inspection Knee exam: Present: normal inspection. Absent: tenderness Lower leg exam: Present: normal inspection. Absent: tenderness Ankle exam: Present: normal inspection. Absent: tenderness Neurovascular/Tendon exam: Present: normal capillary refill. Absent: pulse deficit, motor deficit, sensory deficit - Back Exam Back exam: Present: normal inspection. Absent: tenderness - Neurological Exam Neurological exam: Present: alert, oriented X3, CN II-XII intact - Skin Skin exam: Present: warm, dry, intact, normal color Course Course Narrative: Patient seen and examined initially on arrival. Patient appears to be syncope and then subsequent fall. Patient was noted to be hypertensive on exam. Patient will get a screening cardiopulmonary evaluation with EKG, troponin chest x-ray and labs. Patient also get CT of the head as well as pelvis. Disposition likely admission given the patient's syncope. Patient's blood pressure will be repeated following adequate pain control. Vital Signs Temperature 97.6 F 11/04/17 06:05 Pulse Rate 73 11/04/17 06:05 Respiratory Rate 16 11/04/17 06:05 Blood Pressure 211/100 11/04/17 06:05 O2 Sat by Pulse Oximetry 98 11/04/17 06:05 Temperature 97.6 F 11/04/17 06:05 Pulse Rate 68 11/04/17 06:46 Respiratory Rate 18 11/04/17 06:46 Blood Pressure 203/93 11/04/17 06:46 O2 Sat by Pulse Oximetry 95 11/04/17 06:46 Oxygen Delivery Oxygen Delivery Room Air Fall - MDM Narrative Medical decision making narrative: Patient will be evaluated by the oncoming providers. - Lab Data Result diagrams: 11/04/17 06:46 Lab Results 11/04/17 Range/Units 06:46 WBC 6.5 (4.3-11.1) K/mcL RBC 4.05 (3.82-4.97) M/mcL Hgb 13.0 (11.5-15.4) g/dL Hct 40.3 (35.3-44.9) % MCV 99.5 (83.0-100.0) fL MCH 32.1 (28.0-33.3) pg MCHC 32.3 (31.6-35.5) g/dL RDW 11.6 (11.5-14.5) % Plt Count 262 (140-400) K/mcL MPV 10.1 (9.4-12.4) fL Immature Gran % 0.5 (0-4) % Seg Neutrophils % 55.0 % Lymphocytes % 33.8 % Monocytes % 7.5 % Eosinophils % 2.9 % Basophils % 0.3 % Neutrophils # 3.6 (1.6-8.9) K/mcL Lymphocytes # 2.2 (0.6-4.6) K/mcL Monocytes # 0.5 (0.0-1.3) K/mcL Eosinophils # 0.2 (0.0-0.6) K/mcL Basophils # 0.0 (0.0-0.2) K/mcL - EKG Data EKG attestation: Yes I reviewed and interpreted this EKG. EKG shows normal: sinus rhythm Rate: normal Rhythm: NSR Q waves: III, v1, v2 T wave inversions noted in: v5 (flattened) Interpretation: no acute changes S.B.A.R. - S.B.A.R. Situation: Demographics Background: Presenting Complaint Assessment: Vital Signs Recommendation: Recommendation based on pending studies, treatments, or consults S.B.A.R. Report Given to: Dr. Holly S.B.A.R. Repor Time: 07:11 Attestation Statement - Attestation Attestation: I, Alfredito Lutz MD, personally evaluated this patient and discussed their management with the resident physician. I reviewed the resident's note and agree with the documented findings, medical decision making, and plan of care. 82-year-old female presents to the emergency department with a complaint that she fell in her bathroom this morning shortly prior to arrival. She states that she thinks she blacked out and fell backwards. She hit the bathtub and complains of pain in her left hip and her left side. She does not denies hitting her head. No neck pain. No chest pain or palpitations or shortness of breath prior to the episode. No dizziness. On examination patient is a well-developed well-nourished well-appearing elderly female in no acute distress. She is alert and oriented 3. There is no cyanosis or diaphoresis. Some mild tenderness over the left chest wall with no bony crepitus or subcutaneous emphysema. Breath sounds are clear and equal bilaterally. Heart regular rate and rhythm with a 3/6 systolic murmur. Plan nontender. Abdomen soft with normal bowel sounds and nontender. There is tenderness to palpation over the posterior left hip region. At shift change patient is being signed out to the oncoming dayshift team, Dr. Holly and Dr. Thom weston.
[2017-11-04 07:07] LABS: Basophils % 0.3 %; Eosinophils # 0.2 K/mcL (0.0-0.6); Eosinophils % 2.9 %; Hematocrit 40.3 % (35.3-44.9); Immature Granulocytes % 0.5 % (0-4); Lymphocytes # 2.2 K/mcL (0.6-4.6); Lymphocytes % 33.8 %; Mean Corpuscular HGB Conc 32.3 g/dL (31.6-35.5); Mean Corpuscular Hemoglobin 32.1 pg (28.0-33.3); Mean Corpuscular Volume 99.5 fL (83.0-100.0); Mean Platelet Volume 10.1 fL (9.4-12.4); Monocytes # 0.5 K/mcL (0.0-1.3); Monocytes % 7.5 %; Neutrophils # 3.6 K/mcL (1.6-8.9); Platelet Count 262 K/mcL (140-400); Red Blood Count 4.05 M/mcL (3.82-4.97); Red Cell Distribution Width 11.6 % (11.5-14.5)
[2017-11-04 07:33] LABS: Bilirubin,Urine Negative (Negative); Blood,Urine Negative (Negative); Clarity,Urine Clear (Clear); Color,Urine Yellow (Yellow); Glucose,Urine (UA) Normal (Normal); Ketones,Urine Negative (Negative); Leukocyte Esterase,Urine Negative (Negative); Nitrite,Urine Negative (Negative); Protein,Urine Negative (Neg-Trace); Specific Gravity,Urine 1.008 (1.010-1.025); Urobilinogen,Urine Normal (Normal)
[2017-11-04 07:33] LABS: Potassium 4.1 mEq/L (3.5-5.1)
--- NOTE | 2017-11-04 10:08 | Emergency Department Note ---
Disposition Clinical Impression: Left hip pain, Near syncope, Essential hypertension Fall Qualifiers: Encounter type: initial encounter Qualified Code(s): W19.XXXA - Unspecified fall, initial encounter Disposition: Admitted As Inpatient Condition: Good General Adult HPI - General Chief complaint: ED Fall Stated complaint: Fall, left side/leg pain, syncope Time Seen by Provider: 11/04/17 06:14 Source: patient, family Mode of arrival: ambulatory Limitations: no limitations Nursing Notes Reviewed: Yes Vital Signs Reviewed: Yes - History of Present Illness Pain Scale: 8 - Related Data Home Medications Medication Instructions Recorded Confirmed ALPRAZolam [Xanax 0.5 MG Tablet] 0.5 mg PO BID PRN 10/12/16 11/04/17 Loratadine [Claritin] 10 mg PO DAILY 10/12/16 11/04/17 Pantoprazole Sodium [Protonix] 40 mg PO DAILY 10/12/16 11/04/17 Aspirin 81 mg PO DAILY 12/01/16 11/04/17 Calcium Carbonate/Vitamin D3 1 each PO DAILY 12/01/16 11/04/17 [Calcium 500-Vit D3 200 Caplet] Multivitamin [Multi-Day Vitamins] 1 each PO DAILY 12/01/16 11/04/17 Acetaminophen/Diphenhydramine 1 each PO HS PRN 11/04/17 11/04/17 [Acetaminophen Pm Caplet] Metoprolol [Lopressor] 25 mg PO BID 11/04/17 11/04/17 Previous Rx's Medication Instructions Recorded Losartan Potassium [Cozaar] 50 mg PO BID #60 tab 12/03/16 Pravastatin Sodium [Pravachol] 20 mg PO HS #30 tablet 12/03/16 Allergies Allergy/AdvReac Type Severity Reaction Status Date / Time aspirin AdvReac See Verified 11/04/17 12:38 Comments Constitutional: Reports: as per HPI. Denies: fever Eyes: Reports: as per HPI ENT ED: Reports: as per HPI Cardiovascular: Reports: as per HPI Gastrointestinal: Reports: as per HPI. Denies: abdominal pain, nausea, vomiting Genitourinary: Reports: as per HPI Musculoskeletal: Reports: as per HPI. Denies: back pain Integumentary: Reports: as per HPI Neurological: Reports: as per HPI. 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 Procedure note for history of present illness details. In brief she is an 82-year-old female who presented due to near syncope. Reports she felt lightheaded and dizzy prior to falling this morning. Denies loss of consciousness. Complaining of left hip and left rib pain. I introduced myself family as well as the patient and am awaiting results. Vital Signs Temperature 97.6 F 11/04/17 06:05 Pulse Rate 73 11/04/17 06:05 Respiratory Rate 16 11/04/17 06:05 Blood Pressure 211/100 11/04/17 06:05 O2 Sat by Pulse Oximetry 98 11/04/17 06:05 Temperature 99.1 F 11/06/17 10:46 Pulse Rate 73 11/06/17 10:46 Respiratory Rate 16 11/06/17 10:46 Blood Pressure 130/82 11/06/17 10:46 O2 Sat by Pulse Oximetry 97 11/06/17 10:46 Oxygen Delivery Oxygen Delivery Room Air Medical Decision Making - MDM Narrative Medical decision making narrative: 82-year-old female presents to the ER due to near syncope. Reports prior history of dizzy spells without a clear reason as to why she has them. Currently complaining of left hip pain here. Imaging reviewed with no acute abnormalities. Patient admitted to the hospitalist service for near syncope. - Lab Data Lab results reviewed: Yes I reviewed the patient's lab results. Result diagrams: 11/06/17 05:55 11/06/17 05:55 Lab Results 11/04/17 11/04/17 11/04/17 Range/Units 06:46 06:46 06:46 WBC 6.5 (4.3-11.1) K/mcL RBC 4.05 (3.82-4.97) M/mcL Hgb 13.0 (11.5-15.4) g/dL Hct 40.3 (35.3-44.9) % MCV 99.5 (83.0-100.0) fL MCH 32.1 (28.0-33.3) pg MCHC 32.3 (31.6-35.5) g/dL RDW 11.6 (11.5-14.5) % Plt Count 262 (140-400) K/mcL MPV 10.1 (9.4-12.4) fL Immature Gran % 0.5 (0-4) % Seg Neutrophils % 55.0 % Lymphocytes % 33.8 % Monocytes % 7.5 % Eosinophils % 2.9 % Basophils % 0.3 % Neutrophils # 3.6 (1.6-8.9) K/mcL Lymphocytes # 2.2 (0.6-4.6) K/mcL Monocytes # 0.5 (0.0-1.3) K/mcL Eosinophils # 0.2 (0.0-0.6) K/mcL Basophils # 0.0 (0.0-0.2) K/mcL Sodium 133 L (136-145) mEq/L Potassium 4.1 (3.5-5.1) mEq/L Chloride 99 (98-107) mEq/L Carbon Dioxide 27 (23-29) mEq/L BUN 18 (8-23) mg/dL Creatinine 1.08 (0.60-1.20) mg/dL Est GFR ( Amer) 59 L (> 60) Est GFR (Non-Af Amer) 49 L (> 60) BUN/Creatinine Ratio 17 (6-26) Glucose 88 (70-105) mg/dL Calculated Osmolality 277 L (280-300) Calcium 10.0 (8.6-10.3) mg/dL Troponin I < 0.03 (< 0.04) ng/mL B-Natriuretic Peptide (Less than 100) pg/mL Urine Color (Yellow) Urine Clarity (Clear) Urine pH (5.0-8.0) pH Units Ur Specific [place] (1.010-1.025) Urine Protein (Neg-Trace) mg/dL Urine Glucose (UA) (Normal) mg/dL Urine Ketones (Negative) mg/dL Urine Blood (Negative) Urine Nitrite (Negative) Urine Bilirubin (Negative) Urine Urobilinogen (Normal) mg/dL Ur Leukocyte Esterase (Negative) 11/04/17 11/04/17 Range/Units 06:46 07:04 WBC (4.3-11.1) K/mcL RBC (3.82-4.97) M/mcL Hgb (11.5-15.4) g/dL Hct (35.3-44.9) % MCV (83.0-100.0) fL MCH (28.0-33.3) pg MCHC (31.6-35.5) g/dL RDW (11.5-14.5) % Plt Count (140-400) K/mcL MPV (9.4-12.4) fL Immature Gran % (0-4) % Seg Neutrophils % % Lymphocytes % % Monocytes % % Eosinophils % % Basophils % % Neutrophils # (1.6-8.9) K/mcL Lymphocytes # (0.6-4.6) K/mcL Monocytes # (0.0-1.3) K/mcL Eosinophils # (0.0-0.6) K/mcL Basophils # (0.0-0.2) K/mcL Sodium (136-145) mEq/L Potassium (3.5-5.1) mEq/L Chloride (98-107) mEq/L Carbon Dioxide (23-29) mEq/L BUN (8-23) mg/dL Creatinine (0.60-1.20) mg/dL Est GFR ( Amer) (> 60) Est GFR (Non-Af Amer) (> 60) BUN/Creatinine Ratio (6-26) Glucose (70-105) mg/dL Calculated Osmolality (280-300) Calcium (8.6-10.3) mg/dL Troponin I (< 0.04) ng/mL B-Natriuretic Peptide 105 H (Less than 100) pg/mL Urine Color Yellow (Yellow) Urine Clarity Clear (Clear) Urine pH 6.0 (5.0-8.0) pH Units Ur Specific [place] 1.008 L (1.010-1.025) Urine Protein Negative (Neg-Trace) mg/dL Urine Glucose (UA) Normal (Normal) mg/dL Urine Ketones Negative (Negative) mg/dL Urine Blood Negative (Negative) Urine Nitrite Negative (Negative) Urine Bilirubin Negative (Negative) Urine Urobilinogen Normal (Normal) mg/dL Ur Leukocyte Esterase Negative (Negative) - Radiology Data Radiology results reviewed: Yes I reviewed the patient's radiology results. Chest X-Ray 11/04/17 06:24 IMPRESSION: Stable exam with no acute abnormality. D/ / 11/04/2017 07:54:17 Obey Gentile MD / jenifer Interpreting Provider: Obey Gentile MD Head CT 11/04/17 06:24 IMPRESSION: 1. No acute intracranial hemorrhage. 2. Stable chronic small vessel ischemic changes and remote central lacunar infarcts. D/ / 11/04/2017 07:51:12 Obey Gentile MD / jenifer Interpreting Provider: Obey Gentile MD Pelvis CT 11/04/17 06:26 IMPRESSION: 1. No significant pelvic wall soft tissue contusion/hematoma. 2. Prior left hip hemiarthroplasty with anatomic alignment and no acute fracture. 3. 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 No acute fracture. D/ / 11/04/2017 07:47:34 Obey Gentile MD / jenifer Interpreting Provider: Obey Gentile MD Ribs X-Ray 11/04/17 08:01 IMPRESSION: 1. No evidence of an acute left rib fracture. D/ / Emory Juarez MD / Emory Juarez MD Interpreting Provider: Emory Juarez MD S.B.ADayan - SLeonardBJosr Situation: Demographics, MOA Background: Presenting Complaint, Relevant PMH, Meds, & Allergies Assessment: Vital Signs, Course and respsone to treatment, Exam Concerns, Patient/Family Expectation, Pertinant Lab Results Recommendation: Barrier(s) to disposition, Recommendation based on pending studies, treatments, or consults Alanna Report Given to: Dr Anastasiya Mondragon Repor Time: 10:11 Attestation Statement - Attestation Attestation: I examined this patient and my medical decision-making was reviewed with the Resident Physician, Dr. Holly. I agree with the documented findings, disposition and treatment plan as described except to the extent set forth below. Pt is an 82 yo wf, brought to the ER for c/o dizziness and fall this morning with subsequent L hip and L rib pain. Pt was initially seen and evaluated by Dr. Lutz and shift supervisor melting team, and signed out to us with labs/imaging pending. Pt resting comfortably at bedside, NAD on our initial assessment. Pt states she has been ahving these dizzy spells intermittently for sometime, and this caused her to fall this am, no syncope, no LOC. No CP/press, no SOB, no MERRITT/ visual chagnes, no focal neuro c/o's. Speech clear. I agree with pt's PE findings as documented. EKG without acute ischemia/dysrhythmia. All labs and imaging unremarkable. Pt's BP prior to our assessment, was significantly elevated. Without ED treatment, this has improved during ED course. Will admit pt for dizziness. Pt resting comofrtably and asymptomatic currently.
--- NOTE | 2017-11-04 10:43 | Electrocardiograph Report ---
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
[2017-11-04] MEDS ORDERED: Ondansetron 4 MG/2 ML VIAL IVP PRN (12:03)
[2017-11-04] MEDS ORDERED: Acetaminophen 325 MG TABLET PO PRN (12:03)
[2017-11-04] MEDS ORDERED: Naloxone 0.4 MG/ML INJ IVP PRN (12:03)
--- NOTE | 2017-11-04 12:28 | Internal Med History&Physical ---
Date of Encounter: 11/04/17 Time of Encounter: 11:25 Assessment and Plan (1) Near syncope Current visit: Yes Status: Acute 1. Will proceed with ECHO and Carotid Dopplers as well as serial troponins. 2. Hold ARB due to concerns of aortic stenosis on exam. 3. Will gingerly hydrate with IVF. (2) Cardiac murmur Current visit: Yes Status: Acute 1. Suspect aortic stenosis on exam. 2. Will order ECHO and consult cardiology if significant. (3) Essential hypertension Current visit: No Status: Chronic 1. Hold ARB until aortic stenosis ruled in or out. 2. Continue BB and adjust dosing as necessary. (4) Fall Current visit: Yes Status: Acute 1. Patient will need PT/OT evaluation after cardiac issues ruled out. 2. I'm concerned fall was due to near syncopal event from possible valvular issue (aortic stenosis). Qualifiers: Encounter type: initial encounter Qualified Code(s): W19.XXXA - Unspecified fall, initial encounter (5) DVT prophylaxis Current visit: Yes Status: Acute 1. Heparin SQ. Internal Medicine - H&P: HPI Chief complaint: s/p fall; near syncope Admitted From: Emergency Dept Plans for Post Hospital Care: Home History of present illness: Ms. Rolle is an 82 year old female who presents to the ER this morning after having sustained a fall in her bathroom with questionable syncopal event. She woke up about 5:00 in the morning to go to the bathroom, and she subsequently fell landing on the bathtub and the floor. She denies any loss of consciousness. However, she and her grandson both confirmed that she was lightheaded and dizzy before falling. Since then, she has returned back to baseline but complains of significant pain to her left ribs and pelvic area where she injured herself on the bathtub. Imaging studies in the ER were negative for any acute fracture. Her blood pressure was rather elevated upon admission to the ER, but it has trended down to the 160s/90s presently. Patient denies any chest pain, fevers, nausea, vomiting, diarrhea, palpitations , or irregular heartbeats. She denies any history of heart disease or stroke. On auscultation, I noted a significant murmur concerning for possible aortic stenosis. Her grandson confirms that she has had some valvular problem in the past but he is unaware as to which valve is involved. She has not had a recent echocardiogram that I could find. Past Med Surg Social Fam HX - Past Medical History Attestation: Yes The following information was validated with the patient. Source: patient, old records reviewed, obtained from family Medical history: hypertension, renal disease Psychiatric history: anxiety, depression - Past Surgical History Surgical History: appendectomy, hip replacement - Social History Smoking Status: Never smoker Smokeless Tobacco Status: No Alcohol use: none Drug use: none Current living situation: Home, With Family Activity Level: Independent ambulation Recent Out of Country Travel Within the Last 8 Weeks: No - Family History Mother Hx Family Cancer: Yes (breast cancer) Father Hx Family Neuromuscular Disorders: Yes (CVA) Internal Medicine - H&P: Meds ALPRAZolam [Xanax 0.5 MG Tablet] 0.5 mg PO BID PRN 10/12/16 [History] Loratadine [Claritin] 10 mg PO DAILY 10/12/16 [History] Pantoprazole Sodium [Protonix] 40 mg PO DAILY 10/12/16 [History] Aspirin 81 mg PO DAILY 12/01/16 [History] Calcium Carbonate/Vitamin D3 [Calcium 500-Vit D3 200 Caplet] 1 each PO DAILY [History] Multivitamin [Multi-Day Vitamins] 1 each PO DAILY 12/01/16 [History] Losartan Potassium [Cozaar] 50 mg PO BID #60 tab 12/03/16 [Rx] Pravastatin Sodium [Pravachol] 20 mg PO HS #30 tablet 12/03/16 [Rx] Acetaminophen/Diphenhydramine [Acetaminophen Pm Caplet] 1 each PO HS PRN [History] Metoprolol [Lopressor] 25 mg PO BID 11/04/17 [History] 3 Allergy/AdvReac Type Severity Reaction Status Date / Time aspirin Allergy See Verified 12/01/16 21:50 Comments - Constitutional Constitutional: no chills, no fever(s) - EENT Eyes: no blurry vision, no change in vision Ears: no ear pain, no tinnitus Nose, mouth and throat: no nasal congestion, no sinus pressure, no sore throat - Cardiovascular Cardiovascular ROS IM: lightheadedness, other (near syncope), no chest pain, no dyspnea, no dyspnea on exertion, no irregular heart rhythm, no palpitations, no syncope - Respiratory Respiratory: no cough, no dyspnea, no hemoptysis, no wheezing, no chest congestion, no change in phlegm color - Gastrointestinal Gastrointestinal: no abdominal pain, no diarrhea, no hematemesis, no hematochezia, no melena, no nausea, no vomiting - Genitourinary Genitourinary: no dysuria, no flank pain, no hematuria - Musculoskeletal Musculoskeletal ROS IM: no joint swelling, no muscle weakness, no myalgias - Integumentary Integumentary IM: no rash, no jaundice - Neurological Neurological ROS: dizziness, no focal weakness, no frequent falls, no headache(s ), no vertigo - Psychiatric Psychiatric: anxiety, no depression - Endocrine Endocrine IM: no polydipsia, no polyuria - Hematologic/Lymphatic Hematologic/Lymphatic: no easy bruising, no lymphadenopathy - Allergic/Immunologic Allergic/Immunologic: no wheezing, no GI upset with certain foods - Constitutional Vitals: Temp Pulse Resp BP Pulse Ox 98.3 F 64 16 126/80 95 11/04/17 11:14 11/04/17 11:14 11/04/17 11:14 11/04/17 11:14 11/04/17 11:14 General appearance: Present: cooperative, A&O X 3, pleasant, no acute distress, answers questions appropriately - Head Head exam: Present: atraumatic, normal inspection - Expanded Head Exam Head exam expanded: Absent: abrasion, contusion, general tenderness - Eye Eye exam: Present: EOMI, normal appearance, PERRL. Absent: scleral icterus Pupils: Present: normal accommodation - ENT ENT exam: Present: mucous membranes moist, normal exam, normal oropharynx - Neck Neck exam general surgery: Present: full ROM, supple. Absent: lymphadenopathy, tenderness, nuchal rigidity - Expanded Neck Exam Neck exam: Absent: carotid bruit - Respiratory Respiratory exam: Present: CTAB. Absent: chest wall tenderness, rales, respiratory distress, rhonchi, wheezes - Cardiovascular Cardiovascular exam: Present: RRR, +S1, +S2, systolic murmur (grade 3/6 type murmur). Absent: diastolic murmur, JVD - GI/Abdominal GI/Abdominal exam: Present: soft. Absent: guarding, hepatomegaly, rebound, splenomegaly, tenderness - Extremities Exam Extremities exam: Present: full ROM, normal capillary refill, warm, radial pulses palpable and symmetrical. Absent: calf tenderness, joint swelling, pedal edema - Back Exam Back exam: Present: normal inspection. Absent: CVA tenderness (L), CVA tenderness (R) Additional comments: pain along left posterior ribs - Neurological Exam Neurological exam: Present: alert, CN II-XII intact, oriented X3, no focal deficits, strengths equal and symetr throughout - Psychiatric Psychiatric exam: Present: normal affect, normal mood - Skin Skin exam: Present: dry, warm. Absent: rash Internal Med - H&P Results - Labs CBC & Chem 7: 11/04/17 06:46 11/04/17 06:46 - Diagnostic Studies Chest x-ray Status: image reviewed by me (negative; rib films also viewed -- no fracture)
[2017-11-04] MEDS: 0.9 % Sodium Chloride 1,000 ML IVC SCH (13:28)
[2017-11-04] MEDS: *HR* HYDROcodone/Acet 5/325 mg TABLET PO PRN ×2 (16:21→22:55)
[2017-11-04] MEDS: *HR* Heparin 5,000 UNIT/ML VIAL SQ SCH (16:22)
[2017-11-04] MEDS: *HR* Labetalol 20 MG/4 ML SYRINGE IVP PRN (23:23)
[2017-11-05] MEDS: 0.9 % Sodium Chloride 1,000 ML IVC SCH (02:37)
[2017-11-05 04:12] LABS: Basophils % 0.3 %; Eosinophils # 0.1 K/mcL (0.0-0.6); Eosinophils % 0.9 %; Hematocrit 36.2 % (35.3-44.9); Hemoglobin 11.6 g/dL (11.5-15.4); Immature Granulocytes % 0.3 % (0-4); Lymphocytes # 1.9 K/mcL (0.6-4.6); Lymphocytes % 25.1 %; Mean Corpuscular Hemoglobin 32.3 pg (28.0-33.3); Mean Corpuscular Volume 100.8 fL (83.0-100.0); Mean Platelet Volume 10.2 fL (9.4-12.4); Monocytes # 0.7 K/mcL (0.0-1.3); Neutrophils # 4.8 K/mcL (1.6-8.9); Platelet Count 254 K/mcL (140-400); Red Blood Count 3.59 M/mcL (3.82-4.97); Red Cell Distribution Width 11.5 % (11.5-14.5); Segmented Neutrophils % 64.4 %
[2017-11-05 04:26] LABS: Chol/HDL Ratio 2.1 (0-4.9); Magnesium 1.8 mg/dL (1.6-2.6)
[2017-11-05] MEDS: *HR* Labetalol 20 MG/4 ML SYRINGE IVP PRN (05:08)
[2017-11-05] MEDS: *HR* HYDROcodone/Acet 5/325 mg TABLET PO PRN ×2 (05:18→21:51)
[2017-11-05] MEDS: *HR* Heparin 5,000 UNIT/ML VIAL SQ SCH ×2 (05:21→17:31)
[2017-11-05] MEDS: Loratadine 10 MG TABLET PO SCH (09:02)
[2017-11-05] MEDS: Aspirin 81 MG TAB.CHEW PO SCH (09:03)
[2017-11-05] MEDS: Multivit/Ca/Min/Fe/FA 1 TAB TABLET PO SCH (09:03)
--- NOTE | 2017-11-05 16:27 | Internal Med Progress Note ---
Date of Encounter: 11/05/17 Time of Encounter: 09:15 - Assessment and plan (1) Near syncope Current Visit: Yes Status: Acute Assessment and plan: Patient presented to the emergency department after syncopal episode at home in the bathroom. Patient lives with her grandson. Approximate 5 AM she will go to the bathroom, she fell landing in the bathtub and on the floor. She denies any loss of consciousness, however she was dizzy and lightheaded before the fall. All imaging studies in the emergency department were negative for any acute fracture. During exam this morning, patient reported pain when I palpated her bilateral ankles and dorsal right foot. X-rays have been ordered and pending. Head CT is negative for any acute process, rather stable chronic small vessel ischemic changes and remote central lacunar infarcts. Bilateral carotids were essentially normal. Echo shows ejection fraction of 60-65% with asymmetric hypertrophy of basal septum, mild LV DD, moderately calcified aortic valve and the number of leaflets cannot be determined. Mild , mild TR. Will consult cardiology. Patient's labs and vitals have been stable. EKG was normal sinus rhythm with a rate of 70, suggestive of prior OH. Scope therapy has recommended home health and 24-hour supervision. We will set this up and speak with yenny tomorrow. Continue to monitor for safety with bed alarm, fall precautions Continue monitor labs and patient condition. (2) Essential hypertension Current Visit: No Status: Chronic Assessment and plan: Chronic. Continue home medications. (3) Fall Current Visit: Yes Status: Acute Assessment and plan: Patient with increased number of falls in the last 3 months. She reports 3 falls at home. Most recent prompted visit to emergency department for near syncopal episode. Physical therapy has recommended 24-hour supervision and home health physical therapy after discharge. Continue fall precautions and continue to monitor for safety. Qualifiers: Encounter type: initial encounter Qualified Code(s): W19.XXXA - Unspecified fall, initial encounter (4) Cardiac murmur Current Visit: Yes Status: Acute Assessment and plan: New cardiac murmur. Patient does not recall having murmur in the past. Echo as reported above. Cardiology consulted, I appreciate the recommendation consultation. (5) DVT prophylaxis Current Visit: Yes Status: Acute Assessment and plan: Subcutaneous heparin. - Time Spent With Patient less than 15 minutes - Subjective Interval history: Patient was seen and assessed at bedside at 8:45 AM. Grandson was at bedside. Patient lives with grandson. Grandson states this is normal for her once she is hospitalized. I discussed the possibility of patient needing rehabilitation , he states that these are open to her going to an [facility] for care. Patient denies headache, blurred vision, nausea, vomiting, diarrhea, diaphoresis, abdominal pain. She denies any vision changes. Patient reports approximately 3 falls in the last 3 months. She complains of bilateral ankle and right foot pain. X-ray ordered. Patient also states that she did not get any sleep, melatonin has been ordered. - Constitutional Vitals: Temp Pulse Resp BP Pulse Ox 98.3 F 71 16 185/119 95 11/05/17 16:01 11/05/17 16:01 11/05/17 16:01 11/05/17 16:01 11/05/17 16:01 General appearance: Present: cooperative, A&O X 2, pleasant, no acute distress, answers questions appropriately - Head Head exam: Present: atraumatic, normocephalic - Eye Eye exam: Present: normal appearance, conjuntiva pink, sclera anicteric - Neck Neck exam general surgery: Present: normal inspection, supple, trachea midline. Absent: lymphadenopathy, tenderness - Respiratory Respiratory exam: Present: CTAB. Absent: accessory muscle use, chest wall tenderness, rales, respiratory distress, rhonchi, wheezes - Cardiovascular Cardiovascular exam: Present: RRR, +S1, +S2. Absent: diastolic murmur, gallop, rubs, systolic murmur - GI/Abdominal GI/Abdominal exam: Present: normal bowel sounds, soft. Absent: distended, hepatomegaly, tenderness - Extremities Exam Extremities exam: Present: normal capillary refill, normal inspection, warm, radial pulses palpable and symmetrical. Absent: calf tenderness, cyanotic, pedal edema - Expanded Lower Extremities Exam Hip exam: Absent: normal inspection Ankle exam: Present: tenderness Foot/Toe exam: Present: tenderness - Neurological Exam Neurological exam: Present: alert, altered, no focal deficits. Absent: oriented X3, facial droop, speech deficit - Skin Skin exam: Present: dry, intact, normal color, warm. Absent: rash Internal Medicine: Result - Labs CBC & Chem 7: 11/05/17 03:36 01/03/18 06:46 Labs: Short CBC 11/05/17 Range/Units 03:36 WBC 7.4 (4.3-11.1) K/mcL Hgb 11.6 (11.5-15.4) g/dL Hct 36.2 (35.3-44.9) % Plt Count 254 (140-400) K/mcL Neutrophils # 4.8 (1.6-8.9) K/mcL Cardiac Enzymes 11/04/17 Range/Units 18:57 Troponin I < 0.03 (< 0.04) ng/mL - Impressions Impressions Echocardiogram 11/04/17 12:03 Impressions: LVEF 60-65%. Normal LV chamber size and function. Asymmetric hypertophy of the basal septum. Mild left ventricular diastolic dysfunction. Normal right ventricular structure and function. Moderately calcified aortic valve. The number of leaflets cannot be determined. Mild aortic stenosis. Mean gradien 17 mmHg. Peak velocity 2.83 m/s. Mild tricuspid regurgitation. Mild pulmonary hypertension. Left Ventricular Wall Motion: Rest Echo Findings All wall segments showed normal motion. Findings: Study Quality * Technically adequate exam. ECG Findings * Normal sinus rhythm. Left Ventricle * LVEF 60-65%. * Normal LV chamber size and function. * Asymmetric hypertophy of the basal septum. * Mild left ventricular diastolic dysfunction. Right Ventricle * Normal right ventricular structure and function. Left Atrium * Mildly dilated left atrium. Right Atrium * Normal right atrial size. Interatrial Septum * Interatrial septum not well evaluated. Aortic Valve * Moderately calcified aortic valve. The number of leaflets cannot be determined. * Trace aortic regurgitation. * Mild aortic stenosis. Mean gradien 17 mmHg. Peak velocity 2.83 m/s. Mitral Valve * Mild mitral annular calcification. * Trace mitral regurgitation. * No mitral stenosis. Tricuspid Valve * Normal tricuspid valve structure. * Mild tricuspid regurgitation. * Mild pulmonary hypertension. Pulmonic Valve * Normal pulmonic valve structure and function. * Trace pulmonic regurgitation. Aorta * Normally sized aortic root. Pericardium * The pericardium appears normal. IVC * Normal IVC dimensions and inspiratory collapse. Pulmonary Artery * Normal visualized portions of the main pulmonary artery. Consult Discharge Plan - Plan Referrals: Megan Castro DO [Primary Care Provider] -
--- NOTE | 2017-11-05 19:12 | Electrocardiograph Report ---
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
[2017-11-05] MEDS ORDERED: *HR* LORazepam 2 MG/ML VIAL ONE (19:14)
[2017-11-05] MEDS ORDERED: *HR* LORazepam 2 MG/ML VIAL IVP PRN (20:34)
--- NOTE | 2017-11-05 21:02 | Event Note ---
Date of Encounter: 11/05/17 Time of Encounter: 19:15 Pt has seizure activity when she sit on the chair. Generalized seizure witnessed by nurse. With tongue bite. No urinary and fecal incontinence. Pt was given ativan 2 mg iv once. Pt is stablized and airway is patent. Stat MRI head done, no acute infarct or heamorrhage. Recheck pt after MRI. Pt is awake, alert, denies muscle ache. Move [address] Crawford was called and discussed on phone. Recommend keppra 500mg iv bid start from tonight. Order placed. Neurology will see pt.
[2017-11-05] MEDS: Melatonin 3 MG TABLET PO SCH (21:58)
[2017-11-06] MEDS ORDERED: *HR* Morphine 2 MG/ML SYRINGE IVP PRN (00:42)
[2017-11-06] MEDS: *HR* Morphine 2 MG/ML SYRINGE IVP PRN ×2 (01:28→09:26)
[2017-11-06] MEDS: *HR* HYDROcodone/Acet 5/325 mg TABLET PO PRN ×3 (04:38→21:59)
[2017-11-06] MEDS: *HR* Heparin 5,000 UNIT/ML VIAL SQ SCH ×2 (05:59→17:37)
[2017-11-06 06:21] LABS: BUN/Creatinine Ratio 17 (6-26); Blood Urea Nitrogen 15 mg/dL (8-23); Calcium 9.3 mg/dL (8.6-10.3); Carbon Dioxide 21 mEq/L (23-29); Chloride 101 mEq/L (98-107); Glucose 108 mg/dL (70-105); Osmolality,Calculated 273 (280-300); Potassium 4.1 mEq/L (3.5-5.1); Sodium 131 mEq/L (136-145); eGFR For African Americans > 60 (> 60); eGFR For Non-African Americans > 60 (> 60)
[2017-11-06 06:23] LABS: Basophils % 0.2 %; Eosinophils % 0.4 %; Hematocrit 35.3 % (35.3-44.9); Hemoglobin 11.6 g/dL (11.5-15.4); Immature Granulocytes % 0.3 % (0-4); Lymphocytes # 1.7 K/mcL (0.6-4.6); Lymphocytes % 18.1 %; Mean Corpuscular HGB Conc 32.9 g/dL (31.6-35.5); Mean Corpuscular Hemoglobin 32.7 pg (28.0-33.3); Mean Corpuscular Volume 99.4 fL (83.0-100.0); Mean Platelet Volume 9.7 fL (9.4-12.4); Monocytes # 0.9 K/mcL (0.0-1.3); Monocytes % 9.3 %; Neutrophils # 6.5 K/mcL (1.6-8.9); Platelet Count 222 K/mcL (140-400); Red Blood Count 3.55 M/mcL (3.82-4.97); Red Cell Distribution Width 11.7 % (11.5-14.5); Segmented Neutrophils % 71.7 %
--- NOTE | 2017-11-06 09:03 | Neurology - Consult Note ---
Date of Encounter: 11/06/17 Time of Encounter: 08:58 Assessment and Plan (1) Hypertensive urgency Current Visit: Yes Status: Acute Currently this patient is back to her normal baseline. However she did in fact experience an episode of generalized tonic-clonic seizure. The only symptomatic reason I can identify at this point would be malignant hypertension. She has had waxing and waning bouts of hypertension since admission with blood pressures as high as greater than 200 systolic. I find no evidence of focal or lateralized deficit on examination, she does not have persistent headaches, no evidence of metabolic derangement, I do not see any evidence of medication effect, no reason to suspect central nervous system infection or inflammatory process at this juncture. MRI changes consistent with long-term hypertension. However no other changes on the MRI would explain the seizure. I would like to obtain an EEG. I will hold treatment with antiepileptic medications at this juncture. Further recommendations will be made pending the outcome of the EEG. History of Present Illness HPI: Ms. Rolle is a 82 year old female who was seen for neurologic consultation secondary to a first time episode of seizure. She is hospitalized on November 04 secondary to an episode of syncope. Apparently she fell while in the bathroom at home. She now complains of significant pain in the left ribs and pelvic area. However last night she experienced a witnessed generalized tonic-clonic seizure. She did have significant trauma to the right side of the tongue. Since admission she has been having fluctuating hypertensive episodes with systolic readings above 200. Currently she is awake alert and oriented to person place and time follows commands and answers questions appropriately. She denies any headache numbness or tingling currently. Denies weakness, denies headaches, denies visual changes. She is back at her baseline mental function. Stat MRI scan of the brain obtained last night did not reveal significant deep white matter as well as lacunar infarcts in the basal ganglia bilaterally. There is also some cortical atrophy present. There is no evidence of acute infarct, no hemorrhage, no neoplasm. Past Med Surg Social Fam HX - Past Medical History Medical history: hypertension, renal disease Psychiatric history: anxiety, depression - Past Surgical History Surgical History: appendectomy, hip replacement - Social History Smoking Status: Never smoker Smokeless Tobacco Status: No Alcohol use: none Drug use: none - Family History Mother Hx Family Cancer: Yes (breast cancer) Father Hx Family Neuromuscular Disorders: Yes (CVA) Medications and Allergies ALPRAZolam [Xanax 0.5 MG Tablet] 0.5 mg PO BID PRN 10/12/16 [History] Loratadine [Claritin] 10 mg PO DAILY 10/12/16 [History] Pantoprazole Sodium [Protonix] 40 mg PO DAILY 10/12/16 [History] Aspirin 81 mg PO DAILY 12/01/16 [History] Calcium Carbonate/Vitamin D3 [Calcium 500-Vit D3 200 Caplet] 1 each PO DAILY [History] Multivitamin [Multi-Day Vitamins] 1 each PO DAILY 12/01/16 [History] Losartan Potassium [Cozaar] 50 mg PO BID #60 tab 12/03/16 [Rx] Pravastatin Sodium [Pravachol] 20 mg PO HS #30 tablet 12/03/16 [Rx] Acetaminophen/Diphenhydramine [Acetaminophen Pm Caplet] 1 each PO HS PRN [History] Metoprolol [Lopressor] 25 mg PO BID 11/04/17 [History] 3 Allergy/AdvReac Type Severity Reaction Status Date / Time aspirin AdvReac See Verified 11/04/17 12:38 Comments All Systems: A 10-system review of systems was performed and is negative for pertinent findings except as documented above in the HPI. Review of Systems: 10 point review of systems is consistent with a history of present illness and otherwise negative. Physical Examination - Vital Signs Vital Signs: Initial Vital Signs Temp Pulse Resp BP Pulse Ox 97.6 F 73 16 211/100 98 11/04/17 06:05 11/04/17 06:05 11/04/17 06:05 11/04/17 06:05 11/04/17 06:05 - Neurologic Detailed motor examination: other (There are no focal or lateralized deficits present on the neurologic exam. She does have diffuse giveaway weakness secondary to musculoskeletal pain. No involuntary movements are identified.) Detailed sensory examination: intact Reflex and gait examination: other (Deep tendon reflexes are 2 symmetrically in the biceps triceps and brachioradialis. Patellar reflexes and Achilles reflexes are absent symmetrically. No long tract signs are present.) Mental Status Examination: awake, alert, oriented to person, oriented to place, oriented to time, follows commands appropriately, answers questions appropriately, no agnosia, no aphasia, no aproxia Cranial nerve examination: PERRL, EOMI, visual hall intact, corneal reflexes brisk symmetrically, sensory to face intact, mastication intact, no facial asymmetry is present, no dysarthria, hearing is intact symmetrically, soft palate elevates bilaterally upon phonation, gag reflex intact, flexes SCM and trapezius muscles symmetrically with full power, tongue protrudes midline, no atrophy or facial fasiculations present Cerebellar examination: performs finger to nose and heel to cortez symmetrically without ataxia Results - Laboratory Findings CBC and BMP: 11/06/17 05:55 11/06/17 05:55 Abnormal lab findings: Abnormal lab results RBC 3.55 M/mcL (3.82-4.97) L 11/06/17 05:55 Sodium 131 mEq/L (136-145) L 11/06/17 05:55 Carbon Dioxide 21 mEq/L (23-29) L 11/06/17 05:55 Glucose 108 mg/dL (70-105) H 11/06/17 05:55 POC Glucose 115 (58-89) H 11/05/17 20:57 Calculated Osmolality 273 (280-300) L 11/06/17 05:55 B-Natriuretic Peptide 105 pg/mL (Less than 100) H 11/04/17 06:46 HDL Cholesterol 61 mg/dL (40-59) H 11/05/17 03:36 Ur Specific [place] 1.008 (1.010-1.025) L 11/04/17 07:04 Consult Discharge Plan - Plan Referrals: Megan Castro DO [Primary Care Provider] -
[2017-11-06] MEDS: Aspirin 81 MG TAB.CHEW PO SCH (09:42)
[2017-11-06] MEDS: 0.9 % Sodium Chloride 1,000 ML IVC SCH ×2 (09:42→21:58)
[2017-11-06] MEDS: VITAMIN D3 PO SCH (09:43)
[2017-11-06] MEDS: CALCIUM CARBONATE PO SCH (09:43)
[2017-11-06] MEDS: Loratadine 10 MG TABLET PO SCH (09:43)
[2017-11-06] MEDS: Multivit/Ca/Min/Fe/FA 1 TAB TABLET PO SCH (09:44)
[2017-11-06] MEDS: ALPRAZolam 0.5 MG TABLET PO PRN (09:58)
--- NOTE | 2017-11-06 15:56 | EEG/EMG/Oth Biometrics Report ---
EEG Procedure Report Date of procedure: 11/06/17 EEG Procedure: Routine EEG Procedure Note: This is a report of a 21 channel bipolar and referential montage EEG. A posterior dominant rhythm of 8 Hz moderate voltage alpha frequency is identified symmetrically in the posterior head regions. This rhythm attenuates symmetrically with eye opening. Hyperventilation is not performed during the recording. Periods of drowsiness and stage II sleep are identified as reference by dropout of the posterior dominant rhythm and emergence of vertex activity, K complexes, and sleep spindles. Photic stimulation is performed and produces a symmetric driving response. The EKG rhythm strip reveals normal sinus rhythm at 66 beats per minute. Impressions: This EEG recording is within normal limits. There is no evidence of epileptiform activity identified during the study. Comment: A normal EEG does not preclude a diagnosis of seizure or epilepsy. If the clinical suspicion for seizure activity is high, her EEGs or perhaps a prolonged recording may increase the yield. Please correlate clinically.
--- NOTE | 2017-11-06 16:54 | Internal Med Progress Note ---
Date of Encounter: 11/06/17 Time of Encounter: 09:30 - Assessment and plan (1) Near syncope Current Visit: Yes Status: Acute Assessment and plan: Patient presented to the emergency department after syncopal episode at home in the bathroom. Patient lives with her grandson. Approximate 5 AM she will go to the bathroom, she fell landing in the bathtub and on the floor. She denies any loss of consciousness, however she was dizzy and lightheaded before the fall. All imaging studies in the emergency department were negative for any acute fracture. During exam this morning, patient reported pain when I palpated her bilateral ankles and dorsal right foot. X-rays have been ordered and pending. Head CT is negative for any acute process, rather stable chronic small vessel ischemic changes and remote central lacunar infarcts. Bilateral carotids were essentially normal. Echo shows ejection fraction of 60-65% with asymmetric hypertrophy of basal septum, mild LV DD, moderately calcified aortic valve and the number of leaflets cannot be determined. Mild , mild TR. Will consult cardiology. Patient's labs and vitals have been stable. EKG was normal sinus rhythm with a rate of 70, suggestive of prior [place]. Physical therapy has recommended home health and 24-hour supervision. Both pt and family agree, that in light of her seizure last night, she would benefit more from skilled rehab at [facility]. Continue to monitor for safety with bed alarm, fall precautions Continue monitor labs and patient condition. Have PT reassess pt for further needs. (2) Essential hypertension Current Visit: Yes Status: Chronic Assessment and plan: Chronic. Continue home medications. Hydralazine 10 mg IV every 6 hours as needed for systolic blood pressure greater than 180 or diastolic greater than 100. (3) Fall Current Visit: Yes Status: Acute Assessment and plan: Patient with increased number of falls in the last 3 months. She reports 3 falls at home in same time frame. Most recent fall prompted visit to emergency department for near syncopal episode. Physical therapy has recommended 24-hour supervision and home health physical therapy after discharge, will reassess for further needs due to pt's inability to move in the bed since fall and seizure last night. Continue fall precautions and continue to monitor for safety. Qualifiers: Encounter type: initial encounter Qualified Code(s): W19.XXXA - Unspecified fall, initial encounter (4) Cardiac murmur Current Visit: Yes Status: Acute Assessment and plan: New cardiac murmur. Patient does not recall having murmur in the past. Echo as reported above. Cardiology consulted, I appreciate the recommendation consultation. They will see pt in the outpatient setting. (5) DVT prophylaxis Current Visit: Yes Status: Acute Assessment and plan: Subcutaneous heparin daily - Time Spent With Patient less than 15 minutes - Subjective Interval history: Patient was seen and assessed at bedside at 0930 AM. Grandson and son at bedside. Questions answered and pt seems much more alert today than yesterday. She answers questions appropriately. Per family, pt had some confusion today and was unaware of their names, however, I saw pt again and she was alert, oriented x 3. Pt is agreeable to go to SNF for rehab. - Constitutional Vitals: Temp Pulse Resp BP Pulse Ox 97.9 F 74 18 168/95 93 11/06/17 16:42 11/06/17 16:42 11/06/17 16:42 11/06/17 16:42 11/06/17 16:42 General appearance: Present: cooperative, A&O X 3, pleasant, no acute distress, answers questions appropriately - Head Head exam: Present: atraumatic, normal inspection, normocephalic - Eye Eye exam: Present: normal appearance, conjuntiva pink, sclera anicteric - Neck Neck exam general surgery: Present: supple, trachea midline. Absent: lymphadenopathy - Respiratory Respiratory exam: Present: CTAB. Absent: accessory muscle use, rales, rhonchi, wheezes - Cardiovascular Cardiovascular exam: Present: RRR, +S1, +S2. Absent: diastolic murmur, gallop, rubs, systolic murmur - GI/Abdominal GI/Abdominal exam: Present: normal bowel sounds, soft. Absent: distended, hepatomegaly, tenderness - Extremities Exam Extremities exam: Present: normal capillary refill, normal inspection, warm, radial pulses palpable and symmetrical. Absent: calf tenderness, cyanotic, pedal edema, tenderness - Neurological Exam Neurological exam: Present: alert, CN II-XII intact, oriented X3, no focal deficits, strengths equal and symetr throughout. Absent: altered, facial droop , speech deficit - Skin Skin exam: Present: dry, intact, normal color, warm. Absent: rash Internal Medicine: Result - Labs CBC & Chem 7: 11/06/17 05:55 11/06/17 05:55 Labs: Short CBC 11/06/17 Range/Units 05:55 WBC 9.1 (4.3-11.1) K/mcL Hgb 11.6 (11.5-15.4) g/dL Hct 35.3 (35.3-44.9) % Plt Count 222 (140-400) K/mcL Neutrophils # 6.5 (1.6-8.9) K/mcL BMP 11/06/17 05:55 Sodium 131 L Potassium 4.1 Chloride 101 Carbon Dioxide 21 L BUN 15 Creatinine 0.87 Glucose 108 H Calcium 9.3 - Impressions Impressions Ankle X-Ray 11/05/17 16:25 IMPRESSION: No acute abnormality of the ankle. D/ / Jerardo Avelar MD / Jerardo Avelar MD Interpreting Provider: Jerardo Avelar MD Ankle X-Ray 11/05/17 16:25 IMPRESSION: No acute bony or joint abnormality. D/ / 11/05/2017 19:30:07 Jerardo Avelar MD / starla Interpreting Provider: Jerardo Avelar MD Foot X-Ray 11/05/17 16:25 IMPRESSION: No acute bony or joint abnormality. D/ / 11/05/2017 19:25:17 Jerardo Avelar MD / [email or web address] Interpreting Provider: Jerardo Avelar MD Brain MRI 11/05/17 19:22 IMPRESSION: Multifocal small-vessel ischemic changes bilaterally with scattered small prior lacunar infarcts No acute infarct or acute hemorrhage. D/ / Parminder Staples / Parmnider Staples Interpreting Provider: Parminder Staples Consult Discharge Plan - Plan Referrals: Megan Castro DO [Primary Care Provider] -
[2017-11-06] MEDS: Melatonin 3 MG TABLET PO SCH (21:59)
[2017-11-07] MEDS: *HR* Morphine 2 MG/ML SYRINGE IVP PRN ×3 (04:04→14:54)
[2017-11-07] MEDS: *HR* Heparin 5,000 UNIT/ML VIAL SQ SCH ×2 (05:41→17:42)
[2017-11-07 06:04] LABS: Basophils % 0.4 %; Eosinophils # 0.1 K/mcL (0.0-0.6); Eosinophils % 1.2 %; Hematocrit 37.5 % (35.3-44.9); Hemoglobin 12.1 g/dL (11.5-15.4); Immature Granulocytes % 0.2 % (0-4); Lymphocytes # 1.2 K/mcL (0.6-4.6); Lymphocytes % 15.3 %; Mean Corpuscular HGB Conc 32.3 g/dL (31.6-35.5); Mean Corpuscular Hemoglobin 32.5 pg (28.0-33.3); Mean Corpuscular Volume 100.8 fL (83.0-100.0); Mean Platelet Volume 10.1 fL (9.4-12.4); Monocytes # 0.7 K/mcL (0.0-1.3); Monocytes % 8.9 %; Neutrophils # 5.9 K/mcL (1.6-8.9); Platelet Count 211 K/mcL (140-400); Red Blood Count 3.72 M/mcL (3.82-4.97); Red Cell Distribution Width 11.9 % (11.5-14.5)
[2017-11-07] MEDS: CALCIUM CARBONATE PO SCH (07:50)
[2017-11-07] MEDS: VITAMIN D3 PO SCH (07:50)
[2017-11-07] MEDS: ALPRAZolam 0.5 MG TABLET PO PRN (08:04)
[2017-11-07] MEDS: Multivit/Ca/Min/Fe/FA 1 TAB TABLET PO SCH (08:04)
[2017-11-07] MEDS: Aspirin 81 MG TAB.CHEW PO SCH (08:04)
[2017-11-07] MEDS: *HR* HYDROcodone/Acet 5/325 mg TABLET PO PRN ×2 (08:04→18:38)
[2017-11-07] MEDS: Loratadine 10 MG TABLET PO SCH (08:04)
[2017-11-07 08:06] LABS: BUN/Creatinine Ratio 15 (6-26); Blood Urea Nitrogen 14 mg/dL (8-23); Calcium 9.3 mg/dL (8.6-10.3); Carbon Dioxide 23 mEq/L (23-29); Chloride 105 mEq/L (98-107); Glucose 89 mg/dL (70-105); Osmolality,Calculated 282 (280-300); Potassium 4.4 mEq/L (3.5-5.1); Sodium 136 mEq/L (136-145); eGFR For African Americans > 60 (> 60); eGFR For Non-African Americans 58 (> 60)
--- NOTE | 2017-11-07 14:21 | Internal Med Progress Note ---
Date of Encounter: 11/07/17 Time of Encounter: 09:15 - Assessment and plan (1) Near syncope Current Visit: Yes Status: Acute Assessment and plan: Follow at home and bathroom prior to arrival. Patient reports dizziness prior to fall. All imaging studies in the emergency department were negative for any acute fracture. During exam this morning, patient reported pain when I palpated her bilateral ankles and dorsal right foot. X-rays have been ordered and pending. Head CT is negative for any acute process, rather stable chronic small vessel ischemic changes and remote central lacunar infarcts. Bilateral carotids were essentially normal. Echo shows ejection fraction of 60-65% with asymmetric hypertrophy of basal septum, mild LV DD, moderately calcified aortic valve and the number of leaflets cannot be determined. Mild , mild TR. Will consult cardiology. Patient's labs and vitals have been stable. EKG on arrival was normal sinus rhythm with a rate of 70, suggestive of prior [place]. Physical therapy has recommended home health and 24-hour supervision. Both pt and family agree, that in light of her seizure last night, she would benefit more from skilled rehab at [facility]. Continue to monitor for safety with bed alarm, fall precautions Continue monitor labs and patient condition. Have PT reassess pt for further needs. (2) Essential hypertension Current Visit: Yes Status: Chronic Assessment and plan: Chronic. Continue home medications. Hydralazine 10 mg IV every 6 hours as needed for systolic blood pressure greater than 180 or diastolic greater than 100. Patient had what appeared to be seizure-like activity on the night of 11/05. Imaging at that time was negative. She was a rapid response. 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 Patient has not had any further episodes and blood pressure has been better controlled. (3) Fall Current Visit: Yes Status: Acute Assessment and plan: Patient with increased number of falls in the last 3 months. She reports 3 falls at home in same time frame. Most recent fall prompted visit to emergency department for near syncopal episode. Physical therapy has recommended 24-hour supervision and home health physical therapy after discharge, will reassess for further needs due to pt's inability to move in the bed since fall and seizure last night and due to continued pain to left abdomen and left ribs from fall prior to arrival. Continue fall precautions and continue to monitor for safety. Qualifiers: Encounter type: initial encounter Qualified Code(s): W19.XXXA - Unspecified fall, initial encounter (4) Cardiac murmur Current Visit: Yes Status: Acute Assessment and plan: New cardiac murmur. Patient does not recall having murmur in the past. Echo as reported above. Cardiology consulted, I appreciate the recommendation consultation. They will see pt in the outpatient setting. No change. (5) DVT prophylaxis Current Visit: Yes Status: Acute Assessment and plan: Subcutaneous heparin daily, patient has been up and ambulatory, in chair at bedside - Subjective Interval history: Patient was seen and assessed at bedside at 0915 AM. Grandson and son at bedside. Patient alert and oriented 3. She reports pain to right hip right ribs from fall in bathroom at home prior to arrival. She denies headache or neck pain. She denies any blurred vision. She denies nausea vomiting or diarrhea, no chest pain or shortness of breath. Pt is agreeable to go to SNF for rehab and she and family are aware that she will be here through the weekend. - Constitutional Vitals: Temp Pulse Resp BP Pulse Ox 97.7 F 62 16 144/83 94 11/07/17 12:11 11/07/17 12:11 11/07/17 12:11 11/07/17 12:11 11/07/17 12:11 General appearance: Present: cooperative, A&O X 3, pleasant, no acute distress, answers questions appropriately - Head Head exam: Present: atraumatic, normal inspection, normocephalic - Eye Eye exam: Present: normal appearance, conjuntiva pink, sclera anicteric - Neck Neck exam general surgery: Present: supple, trachea midline. Absent: lymphadenopathy - Respiratory Respiratory exam: Present: chest wall tenderness, decreased breath sounds, CTAB. Absent: accessory muscle use, rales, rhonchi, wheezes - Cardiovascular Cardiovascular exam: Present: diastolic murmur, RRR, +S1, +S2. Absent: gallop, rubs - GI/Abdominal GI/Abdominal exam: Present: normal bowel sounds, soft, tenderness, no peritoneal signs. Absent: distended, hepatomegaly - Extremities Exam Extremities exam: Present: normal capillary refill, normal inspection, warm, radial pulses palpable and symmetrical. Absent: calf tenderness, cyanotic, pedal edema, tenderness - Neurological Exam Neurological exam: Present: alert, oriented X3, no focal deficits. Absent: altered, motor sensory deficit, facial droop, speech deficit - Skin Skin exam: Present: dry, intact, normal color, warm. Absent: rash Internal Medicine: Result - Labs CBC & Chem 7: 11/07/17 05:48 11/07/17 07:07 Labs: Short CBC 11/07/17 Range/Units 05:48 WBC 8.0 (4.3-11.1) K/mcL Hgb 12.1 (11.5-15.4) g/dL Hct 37.5 (35.3-44.9) % Plt Count 211 (140-400) K/mcL Neutrophils # 5.9 (1.6-8.9) K/mcL BMP 11/07/17 07:07 Sodium 136 Potassium 4.4 Chloride 105 Carbon Dioxide 23 BUN 14 Creatinine 0.93 Glucose 89 Calcium 9.3 Consult Discharge Plan - Plan Referrals: Megan Castro DO [Primary Care Provider] -
--- NOTE | 2017-11-07 14:50 | Neurology Progress Note ---
Date of Encounter: 11/07/17 Time of Encounter: 14:48 Assessment and Plan (1) Hypertensive urgency Current Visit: Yes Status: Acute Breakthrough seizures secondary to malignant hypertension. At this point she is back to her normal baseline. I am not convinced that she is developing epilepsy therefore I will not start her on antiepileptic medications. Her seizure workup was negative. However if at any point she experiences another episode of seizure immediately and elect to start her on antiepileptic medication. I will reevaluate her at your request. Subjective Interval history: I had the pleasure of following surely today regarding an episode of seizure activity. She is not experienced any further seizure activity since admission. She is back to her baseline cognitive function. She has 2 of her sons present in the room. She denies any headaches. She is still having diffuse pain secondary to her fall. Her seizure workup however was negative. MRI as well as EEG were negative. Her blood pressure is been better controlled since admission. Objective - Constitutional Vitals: Temp Pulse Resp BP Pulse Ox 97.7 F 62 16 144/83 94 11/07/17 12:11 11/07/17 12:11 11/07/17 12:11 11/07/17 12:11 11/07/17 12:11 - Neurological Exam Motor Examination: Present: other (There are no focal or lateralized deficits present on the neurologic exam. She does have diffuse giveaway weakness secondary to musculoskeletal pain. No involuntary movements are identified.) Sensation intact: Present: intact Reflex and gait examination: other (Deep tendon reflexes are 2 symmetrically in the biceps triceps and brachioradialis. Patellar reflexes and Achilles reflexes are absent symmetrically. No long tract signs are present.) Mental Status Examination: Present: awake, alert, oriented to person, oriented to place, oriented to time, follows commands appropriately, answers questions appropriately, no agnosia, no aphasia, no aproxia Cranial nerve examination: Present: PERRL, EOMI, visual hall intact, corneal reflexes brisk symmetrically, sensory to face intact, mastication intact, no facial asymmetry is present, no dysarthria, hearing is intact symmetrically, soft palate elevates bilaterally upon phonation, gag reflex intact, flexes SCM and trapezius muscles symmetrically with full power, tongue protrudes midline, no atrophy or facial fasiculations present Cerebellar examination: Present: performs finger to nose and heel to cortez symmetrically without ataxia Results - Laboratory Findings CBC and BMP: 11/07/17 05:48 11/07/17 07:07 Abnormal lab findings: Abnormal lab results RBC 3.72 M/mcL (3.82-4.97) L 11/07/17 05:48 MCV 100.8 fL (83.0-100.0) H 11/07/17 05:48 Est GFR (Non-Af Amer) 58 (> 60) L 11/07/17 07:07 POC Glucose 101 (58-89) H 11/06/17 20:57 B-Natriuretic Peptide 105 pg/mL (Less than 100) H 11/04/17 06:46 HDL Cholesterol 61 mg/dL (40-59) H 11/05/17 03:36 Ur Specific [place] 1.008 (1.010-1.025) L 11/04/17 07:04 Consult Discharge Plan - Plan Referrals: Megan Castro DO [Primary Care Provider] -
[2017-11-07] MEDS: 0.9 % Sodium Chloride 1,000 ML IVC SCH (14:57)
[2017-11-07] MEDS: Melatonin 3 MG TABLET PO SCH (22:10)
[2017-11-08] MEDS: *HR* Heparin 5,000 UNIT/ML VIAL SQ SCH ×2 (04:34→17:34)
[2017-11-08] MEDS: 0.9 % Sodium Chloride 1,000 ML IVC SCH ×2 (04:34→17:34)
[2017-11-08] MEDS: Loratadine 10 MG TABLET PO SCH (09:43)
[2017-11-08] MEDS: Multivit/Ca/Min/Fe/FA 1 TAB TABLET PO SCH (09:43)
[2017-11-08] MEDS: Aspirin 81 MG TAB.CHEW PO SCH (09:43)
[2017-11-08] MEDS: VITAMIN D3 PO SCH (09:44)
[2017-11-08] MEDS: CALCIUM CARBONATE PO SCH (09:44)
[2017-11-08] MEDS: *HR* HYDROcodone/Acet 5/325 mg TABLET PO PRN ×2 (09:45→17:33)
--- NOTE | 2017-11-08 12:30 | Internal Med Progress Note ---
Date of Encounter: 11/08/17 Time of Encounter: 11:15 - Assessment and plan (1) Near syncope Current Visit: Yes Status: Acute Assessment and plan: Fell at home and bathroom prior to arrival. Patient reports dizziness prior to fall. All imaging studies in the emergency department were negative for any acute fracture. Patient reported some bilateral ankle tenderness and right dorsal foot tenderness, x-rays were negative. Head CT is negative for any acute process, rather stable chronic small vessel ischemic changes and remote central lacunar infarcts. Bilateral carotids were essentially normal. Echo shows ejection fraction of 60-65% with asymmetric hypertrophy of basal septum, mild LV DD, moderately calcified aortic valve and the number of leaflets cannot be determined. Mild , mild TR. I spoke with cardiology, they will follow with her Patient's labs and vitals have been stable. EKG on arrival was normal sinus rhythm with a rate of 70, suggestive of prior [place]. Physical therapy has recommended home health and 24-hour supervision. Both pt and family agree, that in light of her seizure and level of discomfort with moving, she would benefit more from skilled rehab at [facility]. Continue to monitor for safety with bed alarm, fall precautions Continue monitor labs and patient condition. Have PT reassess pt for further needs. (2) Essential hypertension Current Visit: Yes Status: Chronic Assessment and plan: Chronic. Continue home medications. Hydralazine 10 mg IV every 6 hours as needed for systolic blood pressure greater than 180 or diastolic greater than 100. HCTZ 12.5mg po daily started. Pt also has Labetalol 10mg IV q6h prn as well. Patient had what appeared to be seizure-like activity on the night of 11/05. Imaging at that time was negative. She was a rapid response. 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 Patient has not had any further episodes and blood pressure has been better controlled. Continue to monitor VS. (3) Fall Current Visit: Yes Status: Acute Assessment and plan: Patient with increased number of falls in the last 3 months. She reports 3 falls at home in same time frame. Physical therapy has recommended 24-hour supervision and home health physical therapy after discharge, will reassess for further needs due to pt's inability to move in the bed since fall and seizure last night and due to continued pain to left abdomen and left ribs from fall prior to arrival. Continue fall precautions and continue to monitor for safety. Qualifiers: Encounter type: initial encounter Qualified Code(s): W19.XXXA - Unspecified fall, initial encounter (4) Cardiac murmur Current Visit: Yes Status: Acute Assessment and plan: New cardiac murmur. Patient does not recall having murmur in the past. Echo as reported above. Cardiology consulted, I appreciate the recommendation consultation. They will see pt in the outpatient setting. No change. Echocardiogram 11/04/17 12:03 Impressions: LVEF 60-65%. Normal LV chamber size and function. Asymmetric hypertophy of the basal septum. Mild left ventricular diastolic dysfunction. Normal right ventricular structure and function. Moderately calcified aortic valve. The number of leaflets cannot be determined. Mild aortic stenosis. Mean gradien 17 mmHg. Peak velocity 2.83 m/s. Mild tricuspid regurgitation. Mild pulmonary hypertension. Left Ventricular Wall Motion: Rest Echo Findings All wall segments showed normal motion. Findings: Study Quality * Technically adequate exam. ECG Findings * Normal sinus rhythm. Left Ventricle * LVEF 60-65%. * Normal LV chamber size and function. * Asymmetric hypertophy of the basal septum. * Mild left ventricular diastolic dysfunction. Right Ventricle * Normal right ventricular structure and function. Left Atrium * Mildly dilated left atrium. Right Atrium * Normal right atrial size. Interatrial Septum * Interatrial septum not well evaluated. Aortic Valve * Moderately calcified aortic valve. The number of leaflets cannot be determined. * Trace aortic regurgitation. * Mild aortic stenosis. Mean gradien 17 mmHg. Peak velocity 2.83 m/s. Mitral Valve * Mild mitral annular calcification. * Trace mitral regurgitation. * No mitral stenosis. Tricuspid Valve * Normal tricuspid valve structure. * Mild tricuspid regurgitation. * Mild pulmonary hypertension. Pulmonic Valve * Normal pulmonic valve structure and function. * Trace pulmonic regurgitation. Aorta * Normally sized aortic root. Pericardium * The pericardium appears normal. IVC * Normal IVC dimensions and inspiratory collapse. Pulmonary Artery * Normal visualized portions of the main pulmonary artery. (5) DVT prophylaxis Current Visit: Yes Status: Acute Assessment and plan: Subcutaneous heparin daily, patient has been up and ambulatory, in chair at bedside. - Time Spent With Patient less than 15 minutes - Subjective Interval history: Patient was seen and assessed at bedside at 1115 AM. Son at bedside. Patient alert and oriented 3. Appears to be better today than she has since arrival. She reports pain to right hip right ribs from fall in bathroom at home prior to arrival. She denies headache or neck pain. She denies nausea vomiting or diarrhea, no chest pain or shortness of breath. - Constitutional Vitals: Temp Pulse Resp BP Pulse Ox 99.4 F 77 16 155/90 94 11/08/17 10:59 11/08/17 10:59 11/08/17 10:59 11/08/17 10:59 11/08/17 10:59 General appearance: Present: cooperative, A&O X 3, pleasant, no acute distress, answers questions appropriately - Head Head exam: Present: atraumatic, normal inspection, normocephalic - Eye Eye exam: Present: conjuntiva pink, sclera anicteric - Neck Neck exam general surgery: Present: normal inspection, supple, trachea midline. Absent: lymphadenopathy, tenderness - Respiratory Respiratory exam: Present: chest wall tenderness, CTAB. Absent: accessory muscle use, rales, respiratory distress, rhonchi, stridor, wheezes, tachypnea Additional comments: Chest wall tender right anterior inferior ribs - Cardiovascular Cardiovascular exam: Present: RRR, +S1, +S2. Absent: diastolic murmur, gallop, rubs, systolic murmur Additional comments: Murmur heard left sternal border and apex. 3/6. - GI/Abdominal GI/Abdominal exam: Present: normal bowel sounds, soft. Absent: distended, hepatomegaly, tenderness - Extremities Exam Extremities exam: Present: normal capillary refill, warm, radial pulses palpable and symmetrical. Absent: calf tenderness, cyanotic, pedal edema, tenderness - Neurological Exam Neurological exam: Present: alert, oriented X3, no focal deficits. Absent: altered, facial droop, speech deficit - Skin Skin exam: Present: dry, intact, normal color, warm. Absent: rash Internal Medicine: Result - Labs CBC & Chem 7: 11/07/17 05:48 11/07/17 07:07 Consult Discharge Plan - Plan Referrals: Megan Castro DO [Primary Care Provider] -
[2017-11-08] MEDS: hydroCHLOROthiazide 25 MG TABLET PO SCH (13:52)
[2017-11-08] MEDS: *HR* Morphine 2 MG/ML SYRINGE IVP PRN (20:36)
[2017-11-08] MEDS: Melatonin 3 MG TABLET PO SCH (21:09)
[2017-11-09] MEDS: *HR* Heparin 5,000 UNIT/ML VIAL SQ SCH (05:37)
[2017-11-09] MEDS: *HR* HYDROcodone/Acet 5/325 mg TABLET PO PRN ×2 (07:47)
[2017-11-09] MEDS: Multivit/Ca/Min/Fe/FA 1 TAB TABLET PO SCH (07:47)
[2017-11-09] MEDS: Aspirin 81 MG TAB.CHEW PO SCH (07:47)
[2017-11-09] MEDS: Loratadine 10 MG TABLET PO SCH (07:47)
[2017-11-09] MEDS: VITAMIN D3 PO SCH (07:48)
[2017-11-09] MEDS: CALCIUM CARBONATE PO SCH (07:48)
[2017-11-09] MEDS: hydroCHLOROthiazide 25 MG TABLET PO SCH (07:48)
[2017-11-09 10:48] VITALS: BP 128/65
--- NOTE | 2017-11-09 13:29 | Discharge Summary ---
Date of Encounter: 11/09/17 Time of Encounter: 10:00 - Discharge Diagnosis (1) Near syncope Priority: Primary Status: Acute Comments: Fell at home and bathroom prior to arrival. Patient reports dizziness prior to fall. All imaging studies in the emergency department were negative for any acute fracture. Patient reported some bilateral ankle tenderness and right dorsal foot tenderness, x-rays were negative. Head CT is negative for any acute process, rather stable chronic small vessel ischemic changes and remote central lacunar infarcts. Bilateral carotids were essentially normal. Echo shows ejection fraction of 60-65% with asymmetric hypertrophy of basal septum, mild LV DD, moderately calcified aortic valve and the number of leaflets cannot be determined. Mild , mild TR. I spoke with cardiology, they will follow with her after discharge. Patient's labs and vitals have been stable. EKG on arrival was normal sinus rhythm with a rate of 70, suggestive of prior [place]. [facility]. She is stable and appropriate for dishcharge today. (2) Essential hypertension Priority: Secondary Status: Chronic Comments: Chronic. Continue home medications. HCTZ 12.5mg po daily started. BP 128/65 at discharge. Patient had what appeared to be seizure-like activity on the night of 11/05. Imaging at that time was negative. She was a rapid response. 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 Patient has not had any further episodes and blood pressure has been better controlled. Continue to monitor VS frequently at [facility]. (3) Fall Priority: Secondary Status: Acute Comments: Patient with increased number of falls in the last 3 months. She reports 3 falls at home in same time frame. Pt with pain to left ribs and low abdomen that prevent her from returning to her home due to decreased mobility. Pt will be transfered to [facility]. Continue fall precautions and continue to monitor for safety. Qualifiers: Encounter type: initial encounter Qualified Code(s): W19.XXXA - Unspecified fall, initial encounter (4) Cardiac murmur Priority: Secondary Status: Acute Comments: New cardiac murmur. Patient does not recall having murmur in the past. Echo as reported above. Cardiology consulted, I appreciate the recommendation consultation. They will see pt in the outpatient setting. Chest X-Ray 11/04/17 06:24 IMPRESSION: Stable exam with no acute abnormality. D/ / 11/04/2017 07:54:17 [facility] Gentile [facility] Interpreting Provider: Obey Gentile MD Echocardiogram 11/04/17 12:03 Impressions: LVEF 60-65%. Normal LV chamber size and function. Asymmetric hypertophy of the basal septum. Mild left ventricular diastolic dysfunction. Normal right ventricular structure and function. Moderately calcified aortic valve. The number of leaflets cannot be determined. Mild aortic stenosis. Mean gradien 17 mmHg. Peak velocity 2.83 m/s. Mild tricuspid regurgitation. Mild pulmonary hypertension. Left Ventricular Wall Motion: Rest Echo Findings All wall segments showed normal motion. Findings: Study Quality * Technically adequate exam. ECG Findings * Normal sinus rhythm. Left Ventricle * LVEF 60-65%. * Normal LV chamber size and function. * Asymmetric hypertophy of the basal septum. * Mild left ventricular diastolic dysfunction. Right Ventricle * Normal right ventricular structure and function. Left Atrium * Mildly dilated left atrium. Right Atrium * Normal right atrial size. Interatrial Septum * Interatrial septum not well evaluated. Aortic Valve * Moderately calcified aortic valve. The number of leaflets cannot be determined. * Trace aortic regurgitation. * Mild aortic stenosis. Mean gradien 17 mmHg. Peak velocity 2.83 m/s. Mitral Valve * Mild mitral annular calcification. * Trace mitral regurgitation. * No mitral stenosis. Tricuspid Valve * Normal tricuspid valve structure. * Mild tricuspid regurgitation. * Mild pulmonary hypertension. Pulmonic Valve * Normal pulmonic valve structure and function. * Trace pulmonic regurgitation. Aorta * Normally sized aortic root. Pericardium * The pericardium appears normal. IVC * Normal IVC dimensions and inspiratory collapse. Pulmonary Artery * Normal visualized portions of the main pulmonary artery. (5) DVT prophylaxis Priority: Secondary Status: Acute Comments: SQ Heparin, pt has been up in chair and up to [facility]. - Discharge Medications Prescriptions: ALPRAZolam [Xanax 0.5 MG Tablet] 0.5 mg PO BID PRN #4 tablet PRN Reason: Anxiety Home Medications: Loratadine [Claritin] 10 mg PO DAILY 10/12/16 [History] Pantoprazole Sodium [Protonix] 40 mg PO DAILY 10/12/16 [History] Aspirin 81 mg PO DAILY 12/01/16 [History] Calcium Carbonate/Vitamin D3 [Calcium 500-Vit D3 200 Caplet] 1 each PO DAILY [History] Multivitamin [Multi-Day Vitamins] 1 each PO DAILY 12/01/16 [History] Losartan Potassium [Cozaar] 50 mg PO BID #60 tab 12/03/16 [Rx] Pravastatin Sodium [Pravachol] 20 mg PO HS #30 tablet 12/03/16 [Rx] Acetaminophen/Diphenhydramine [Acetaminophen Pm Caplet] 1 each PO HS PRN [History] Metoprolol [Lopressor] 25 mg PO BID 11/04/17 [History] ALPRAZolam [Xanax 0.5 MG Tablet] 0.5 mg PO BID PRN #4 tablet 11/09/17 [Rx] Melatonin 3 mg PO HS tablet 11/09/17 [Rx] Allergies/Adverse Reactions: 3 Allergy/AdvReac Type Severity Reaction Status Date / Time aspirin AdvReac See Verified 11/04/17 12:38 Comments Date of admission: 11/06/17 18:17 Primary care physician: Megan Castro DO Consults: 11/08/17 12:49 Consult to Physical Therapy [CONS] Routine Comment: Evaluate, develop and implement POC Reason for Consult: Could you please reevaluate? Pt has difficulty with ambulation and bed mobility due to injuries from fall. Could you reassess for SNF, please? Discharging clinician: Jennifer Woodard Anticipated date of discharge: 11/09/17 - Patient Status Disposition: Transfer SNF Condition: Good Functional capacity at discharge: uses cane/walker Overall status at discharge: patient is progressing back to baseline - Discharge Instructions Follow Up With: Megan Castro DO [Primary Care Provider] - - Diet and Activity Activity: as per physical therapy Diet: advance to your usual diet Hospital course: Ms. Rolle is a 82 year old female with past medical history of hypertension, hyperlipidemia, GERD, anxiety who presented to the emergency department after a fall at home. Patient with pain to left anterior inferior ribs as well as left low abdomen. All imaging was negative. Pain from the fall has made it increasingly difficult for patient to move around in bed or complete her ADLs. The patient is going to benefit from rehabilitation at [facility]. Patient with new onset heart murmur. Echocardiogram with preserved F and no valvular dysfunction. Patient denies any chest pain and denies any prior knowledge of a murmur. She will follow up with cardiology after discharge. Patient would appear to be seizure-like activity on her second night here. She was evaluated by neurology, head CT and brain MRI were both negative. 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 Continue her normal home medications as well as added hydrochlorothiazide 12.5 mg by mouth twice a day. She is responding to carboplatin pressures within normal limits at discharge. Patient is going to [facility] for rehabilitation. She is stable and appropriate and ready for discharge. - Time Spent with Patient Total time spent providing and/or coordinating discharge services: Less than 30 minutes - Constitutional Vitals: Temp Pulse Resp BP Pulse Ox 98.4 F 78 17 128/65 98 11/09/17 10:47 11/09/17 10:47 11/09/17 10:47 11/09/17 10:47 11/09/17 10:47 General appearance: Present: cooperative, A&O X 3, pleasant, no acute distress, answers questions appropriately - Head Head exam: Present: atraumatic, normal inspection, normocephalic - Eye Eye exam: Present: normal appearance, conjuntiva pink, sclera anicteric - Neck Neck exam general surgery: Present: supple, trachea midline. Absent: lymphadenopathy - Respiratory Respiratory exam: Present: CTAB. Absent: accessory muscle use, rales, rhonchi, wheezes - Cardiovascular Cardiovascular exam: Present: RRR, +S1, +S2. Absent: diastolic murmur, gallop, rubs, systolic murmur - GI/Abdominal GI/Abdominal exam: Present: normal bowel sounds, soft. Absent: distended, hepatomegaly, tenderness - Extremities Exam Extremities exam: Present: normal capillary refill, warm, radial pulses palpable and symmetrical. Absent: calf tenderness, cyanotic, pedal edema - Neurological Exam Neurological exam: Present: alert, oriented X3, no focal deficits. Absent: facial droop, speech deficit - Skin Skin exam: Present: dry, intact, normal color, warm. Absent: rash
--- NOTE | 2017-11-09 13:51 | Physician Discharge Referral ---
ExtendedCare Referral Info Provider in Charge after Transfer: PCP Institutional Level of Care: Skilled - Diagnosis (1) Near syncope Priority: Primary Status: Acute (2) Essential hypertension Priority: Secondary Status: Chronic (3) Fall Priority: Secondary Status: Acute (4) Cardiac murmur Priority: Secondary Status: Acute (5) DVT prophylaxis Priority: Secondary Status: Acute Prognosis: Good Aware of Diagnosis: Patient, Family - Transfer Medications Prescriptions: ALPRAZolam [Xanax 0.5 MG Tablet] 0.5 mg PO BID PRN #4 tablet PRN Reason: Anxiety Home Medications: Loratadine [Claritin] 10 mg PO DAILY 10/12/16 [History] Pantoprazole Sodium [Protonix] 40 mg PO DAILY 10/12/16 [History] Aspirin 81 mg PO DAILY 12/01/16 [History] Calcium Carbonate/Vitamin D3 [Calcium 500-Vit D3 200 Caplet] 1 each PO DAILY [History] Multivitamin [Multi-Day Vitamins] 1 each PO DAILY 12/01/16 [History] Losartan Potassium [Cozaar] 50 mg PO BID #60 tab 12/03/16 [Rx] Pravastatin Sodium [Pravachol] 20 mg PO HS #30 tablet 12/03/16 [Rx] Acetaminophen/Diphenhydramine [Acetaminophen Pm Caplet] 1 each PO HS PRN [History] Metoprolol [Lopressor] 25 mg PO BID 11/04/17 [History] ALPRAZolam [Xanax 0.5 MG Tablet] 0.5 mg PO BID PRN #4 tablet 11/09/17 [Rx] Melatonin 3 mg PO HS tablet 11/09/17 [Rx] Allergies/Adverse Reactions: 3 Allergy/AdvReac Type Severity Reaction Status Date / Time aspirin AdvReac See Verified 11/04/17 12:38 Comments - Respiratory Orders Smoking Cessation: Smoking cessation has been advised. For more information, call the [place] Tobacco Quit Line at 3-346-OLNU-NOW. - Lab Orders Lab Orders: CBC, U/A, Abdulkadir 17, CXR yearly - Ancillary Orders May use pressure relief devices daily prn, May go on LUCAS w/family/respon green party w /meds at nurse discretion PRN, May consult with Dentist, Photovoltaic Technician, Blurb Writer PRN - Advance Directives Code Status: Full Code - Mobility Orders Chair, Ambulate - Rehabiliation Orders Rehab Potential: Good Rehab Orders: Sternal Precautions, ROM Exercises, Evaluation for Physical Therapy, Evaluation for Occupational Therapy - Treatments Skin tear care topically daily PRN per policy, May check for fecal impaction rectally daily PRN, Fleet enema rectally every other day PRN cleansing purposes - Diet Orders Regular, No Added Salt (ORIANA) CERTIFICATION: I certify that the transfer of the above named patient to an Extended Care Facility is necessary for the continuing treatment of the diagnosis listed. The above information is true and accurate reflection of patient's current condition. Confidential - Redisclosure prohibited without a patient's written consent.
[2017-11-09] MEDS ORDERED: Cholecalciferol (D-3) 1,000 UNIT TABLET PO SCH (14:15)
== END 2017-11-09 16:00 | DRG 305 ==
LOC: 2ANU 06:04 → EMEROO 06:04 → 2ANU 10:24 → 3BNU 14:20
PROVIDERS: ADMIT Pediatrics; ATTEND Internal Medicine

== ENCOUNTER 2017-12-01 14:41 | Inpatient (IN) ==
[2017-12-01] MEDS ORDERED: 0.9 % Sodium Chloride 1,000 ML IVC ONE (14:53)
[2017-12-01 15:37] LABS: Basophils % 0.3 %; Hematocrit 40.1 % (35.3-44.9); Hemoglobin 13.2 g/dL (11.5-15.4); Immature Granulocytes % 1.1 % (0-4); Lymphocytes # 2.2 K/mcL (0.6-4.6); Lymphocytes % 17.4 %; Mean Corpuscular HGB Conc 32.9 g/dL (31.6-35.5); Mean Corpuscular Hemoglobin 31.7 pg (28.0-33.3); Mean Corpuscular Volume 96.4 fL (83.0-100.0); Mean Platelet Volume 9.7 fL (9.4-12.4); Monocytes # 1.3 K/mcL (0.0-1.3); Monocytes % 10.4 %; Neutrophils # 8.7 K/mcL (1.6-8.9); Platelet Count 234 K/mcL (140-400); Red Blood Count 4.16 M/mcL (3.82-4.97); Red Cell Distribution Width 11.7 % (11.5-14.5); Segmented Neutrophils % 70.8 %
[2017-12-01 15:50] LABS: Albumin 3.8 g/dL (3.5-5.7); Bilirubin,Direct 0.1 mg/dL (0.0-0.2); Bilirubin,Indirect 0.3 mg/dL (0.0-1.2); Bilirubin,Total 0.4 mg/dL (0.3-1.0); Calcium 9.4 mg/dL (8.6-10.3); INR 1.1; Magnesium 1.8 mg/dL (1.6-2.6); Potassium 4.8 mEq/L (3.5-5.1); Prothrombin Time 11.6 Seconds (9.4-12.1)
[2017-12-01 15:53] LABS: Activated Partial Thrombo Time 23.6 Seconds (26.0-36.0)
[2017-12-01 15:56] LABS: Albumin/Globulin Ratio 1.6 (1.1-2.2); Globulin 2.4 g/dL (2.4-3.5); Phosphorous 3.3 mg/dL (2.7-4.5); Total Protein 6.2 g/dL (6.4-8.9)
[2017-12-01 16:09] LABS: Bilirubin,Urine Negative (Negative); Clarity,Urine Cloudy (Clear); Color,Urine Yellow (Yellow); Glucose,Urine (UA) Normal (Normal); Ketones,Urine Negative (Negative); Specific Gravity,Urine 1.027 (1.010-1.025)
[2017-12-01 16:10] LABS: Blood,Urine Negative (Negative); Leukocyte Esterase,Urine Negative (Negative); Nitrite,Urine Negative (Negative); Protein,Urine Trace mg/dL (Neg-Trace); Urobilinogen,Urine Normal (Normal)
[2017-12-01 16:13] LABS: RBC,Urine 0-3 per hpf (0-3)
[2017-12-01 16:14] LABS: Amorphous Sediment,Urine Moderate (Few); Bacteria,Urine Few per hpf (None-Few); Squamous Epithelial Cell,Urine Few per lpf (None-Few); WBC,Urine 0-3 per hpf (0-3)
--- NOTE | 2017-12-01 16:15 | Emergency Department Note ---
Disposition Clinical Impression: Weakness Altered mental status Qualifiers: Altered mental status type: unspecified Qualified Code(s): R41.82 - Altered mental status, unspecified Disposition: Admitted As Inpatient Condition: Fair Time of Disposition: 17:45 General Adult HPI - General Chief complaint: ED Neuro Symptoms/Deficit Stated complaint: Neuro Time Seen by Provider: 12/01/17 14:49 Source: patient, EMS Mode of arrival: ambulatory Limitations: altered mental status Nursing Notes Reviewed: Yes Vital Signs Reviewed: Yes - History of Present Illness HPI Narrative: 82-year-old female presents to the emergency department complaining of altered mental status. Family states that she had a mechanical fall yesterday did not hit her head or lose any consciousness. They said now she is back to her normal self or she seems very confused and very lethargic compared to her normal. They said they have not noticed any one-sided weakness. She recently had a fall approximately 2 weeks ago where she broke part of her thoracic spine and they are considering possible surgery. She was recently started on Vicodin 1 week ago and they are wondering if the pain meds as what is causing her altered mental status. Patient otherwise is having no complaints she is not having any complaints with urination. Patient is having no headaches, blurry vision, neck pain, back pain outside of her recent fall, chest pain, shortness of breath, abdominal pain, pain with urination, changes in bowel movements, pain or tingling down the arms or legs or any generalized weakness. Pain Scale: 3 - Related Data Home Medications Medication Instructions Recorded Confirmed Loratadine [Claritin] 10 mg PO DAILY 10/12/16 11/04/17 Pantoprazole Sodium [Protonix] 40 mg PO DAILY 10/12/16 11/04/17 Aspirin 81 mg PO DAILY 12/01/16 11/04/17 Calcium Carbonate/Vitamin D3 1 each PO DAILY 12/01/16 11/04/17 [Calcium 500-Vit D3 200 Caplet] Multivitamin [Multi-Day Vitamins] 1 each PO DAILY 12/01/16 11/04/17 Acetaminophen/Diphenhydramine 1 each PO HS PRN 11/04/17 11/04/17 [Acetaminophen Pm Caplet] Metoprolol [Lopressor] 25 mg PO BID 11/04/17 11/04/17 Previous Rx's Medication Instructions Recorded Losartan Potassium [Cozaar] 50 mg PO BID #60 tab 02/01/17 Pravastatin Sodium [Pravachol] 20 mg PO HS #30 tablet 12/03/16 ALPRAZolam [Xanax 0.5 MG Tablet] 0.5 mg PO BID PRN #4 tablet 11/09/17 Melatonin 3 mg PO HS tablet 11/09/17 Allergies Allergy/AdvReac Type Severity Reaction Status Date / Time aspirin AdvReac See Verified 11/04/17 12:38 Comments Review of Systems: 10 point review of systems done and negative unless otherwise stated in the history of present illness. All systems ED: reviewed and negative except as stated. Review of Systems: As Per HPI Past Medical History - Past Medical History Attestation: Yes The following information was validated with the patient. Source: patient Medical history: Reports: hypertension, renal disease, seizures Surgical history: Reports: appendectomy Psychiatric history: Reports: anxiety, depression - Social History Smoking Status: Never smoker Smokeless Tobacco Status: No Alcohol use: Reports: none Drug use: Reports: none Physical Exam - General Limitations: altered mental status General appearance: lethargic - Head Head exam: atraumatic, normocephalic, normal inspection - Eye Eye exam: Present: normal appearance, PERRL, EOMI - ENT ENT exam: normal exam, normal oropharynx, mucous membranes moist - Neck Neck exam: Present: normal inspection, full ROM, trachea midline - Chest Chest inspection: Present: normal inspection, symmetric chest wall rise, rash ( No swollen rash on the right-sided chest that is dermatomal right underneath her right breast wrapping around her entire right side. This is read non- pustule but is blanchable. Patient states is not painful or itchy.) - Respiratory Respiratory exam: Present: normal lung sounds bilaterally. Absent: respiratory distress, wheezes, stridor, accessory muscle use - Cardiovascular Cardiovascular exam: Present: regular rate, normal rhythm, normal heart sounds - Abdominal Exam Abdominal exam: Present: soft, Non-Tender. Absent: tenderness, distention, guarding, rebound, rigidity - Extremities Exam Extremities exam: Present: normal inspection, full ROM. Absent: tenderness, pedal edema - Expanded Lower Extremity Exam Neurovascular/Tendon exam: Present: normal capillary refill. Absent: pulse deficit, motor deficit, sensory deficit Gait: observed and normal - Back Exam Back exam: Present: normal inspection, full ROM. Absent: tenderness, CVA tenderness (R), CVA tenderness (L) - Neurological Exam Neurological exam: Present: alert, oriented X3, CN II-XII intact, normal gait. Absent: motor sensory deficit - Expanded Neurological Exam Patient oriented to: Present: person, place, time Speech: Present: fluid speech Cranial nerves: EOM function (II, III, IV, ): Normal, facial sensation (V): Normal, facial palsy (VII): Normal, spinal accessory function (XI): Normal, tongue deviation (XII): Normal Cerebellar function: finger to nose: Normal, heel to cortez: Normal Motor strength - LUE: 5/5 Motor strength - RUE: 5/5 Motor strength - LLE: 5/5 Motor strength - RLE: 5/5 Coma Scale Eye Opening: Spontaneous Coma Scale Motor Response: Obeys Commands Coma Scale Verbal Response: Oriented Coma Scale Total: 15 Course Course Narrative: 82-year-old female presented to the emergency department complaining of altered mental status. We did give patient IV fluids to get basic labs chest x-ray as well as head CT due to recent falls. We will also get urinalysis. Patient did have rash all across her right chest that was determined elbow in nature. This does seem to be zoster like is his dermatomal but does not look like the normal zoster etiology. His physician most likely his admission. Vital Signs Temperature 97.9 F 12/01/17 14:44 Pulse Rate 104 12/01/17 14:44 Respiratory Rate 20 12/01/17 14:44 Blood Pressure 139/89 12/01/17 14:44 O2 Sat by Pulse Oximetry 93 12/01/17 14:44 Temperature 97.9 F 12/01/17 14:44 Pulse Rate 82 12/01/17 18:07 Respiratory Rate 20 12/01/17 18:07 Blood Pressure 161/99 12/01/17 18:07 O2 Sat by Pulse Oximetry 95 12/01/17 18:07 Oxygen Delivery Oxygen Delivery Room Air Medical Decision Making - [facility] Narrative Medical decision making narrative: 82-year-old female presents to the emergency department complaining of altered mental status. Labs only showed mild hyponatremia did give IV fluids to help with this. Mild leukocytosis of 12,000 but no other sites of infection. Urinalysis was normal. Troponin was 0.04 with a give baby aspirin. There were no EKG changes. Chest x-ray was normal and CT of the head was normal. This most likely could be due to the hyponatremia as well as just generalized weakness due to age. Talk with family about discharge or admission they felt more control with admission as they do not feel that she is safe to go home at this time. Patient also has the zoster. Due to its unknown etiology we will continue to watch it. Patient needs to be admitted to the hospitalist service I spoke with the nurse practitioner Mg who agreed to admit the patient to their service. I did tell him about everything that we found and he agrees with the plan. A cortez is admitted in stable condition. Chest X-Ray 12/01/17 14:54 IMPRESSION: No evidence of acute cardiopulmonary disease. D/ / Perfecto Hanson MD / Perfecto Hanson MD Interpreting Provider: Perfecto Hanson MD Head CT 12/01/17 14:57 IMPRESSION: No acute intracranial abnormality with stable chronic findings as described. Possible mild acute maxillary sinusitis as described. D/ / Adelina Caldwell MD / Adelina Caldwell MD Interpreting Provider: Adelina Caldwell MD - Medical Records Medical records reviewed: Yes I reviewed the patient's medical records. - Lab Data Lab results reviewed: Yes I reviewed the patient's lab results. Result diagrams: 12/01/17 15:18 12/01/17 15:18 Lab Results 12/01/17 12/01/17 12/01/17 Range/Units 15:01 15:10 15:18 WBC (4.3-11.1) K/mcL RBC (3.82-4.97) M/mcL Hgb (11.5-15.4) g/dL Hct (35.3-44.9) % MCV (83.0-100.0) fL MCH (28.0-33.3) pg MCHC (31.6-35.5) g/dL RDW (11.5-14.5) % Plt Count (140-400) K/mcL MPV (9.4-12.4) fL Immature Gran % (0-4) % Seg Neutrophils % % Lymphocytes % % Monocytes % % Eosinophils % % Basophils % % Neutrophils # (1.6-8.9) K/mcL Lymphocytes # (0.6-4.6) K/mcL Monocytes # (0.0-1.3) K/mcL Eosinophils # (0.0-0.6) K/mcL Basophils # (0.0-0.2) K/mcL PT (9.4-12.1) Seconds INR APTT (26.0-36.0) Seconds Sodium (136-145) mEq/L Potassium (3.5-5.1) mEq/L Chloride (98-107) mEq/L Carbon Dioxide (23-29) mEq/L BUN (8-23) mg/dL Creatinine (0.60-1.20) mg/dL Est GFR ( Amer) (> 60) Est GFR (Non-Af Amer) (> 60) BUN/Creatinine Ratio (6-26) Glucose (70-105) mg/dL POC Glucose (58-89) Calculated Osmolality (280-300) Lactic Acid (0.5-2.2) mmol/L Calcium (8.6-10.3) mg/dL Phosphorus (2.7-4.5) mg/dL Magnesium (1.6-2.6) mg/dL Total Bilirubin (0.3-1.0) mg/dL Direct Bilirubin (0.0-0.2) mg/dL Indirect Bilirubin (0.0-1.2) mg/dL AST (13-39) Units/L ALT (7-52) Units/L Alkaline Phosphatase (34-104) Units/L Troponin I (< 0.04) ng/mL Serum Total Protein (6.4-8.9) g/dL Albumin (3.5-5.7) g/dL Globulin (2.4-3.5) g/dL Albumin/Globulin Ratio (1.1-2.2) Lipase 56 (11-82) Units/L Urine Color Yellow (Yellow) Urine Clarity Cloudy A (Clear) Urine pH 5.0 (5.0-8.0) pH Units Ur Specific [place] 1.027 H (1.010-1.025) Urine Protein Trace (Neg-Trace) mg/dL Urine Glucose (UA) Normal (Normal) mg/dL Urine Ketones Negative (Negative) mg/dL Urine Blood Negative (Negative) Urine Nitrite Negative (Negative) Urine Bilirubin Negative (Negative) Urine Urobilinogen Normal (Normal) mg/dL Ur Leukocyte Esterase Negative (Negative) Urine Microscopic RBC 0-3 (0-3) per hpf Urine Microscopic WBC 0-3 (0-3) per hpf Ur Squamous Epith Cells Few (None-Few) per lpf Amorphous Sediment Moderate H (Few) Urine Bacteria Few (None-Few) per hpf Ur Culture Indicated? NO (NO) Specimen Rejected Hemolyzed 12/01/17 12/01/17 12/01/17 Range/Units 15:18 15:18 15:18 WBC 12.3 H (4.3-11.1) K/mcL RBC 4.16 (3.82-4.97) M/mcL Hgb 13.2 (11.5-15.4) g/dL Hct 40.1 (35.3-44.9) % MCV 96.4 (83.0-100.0) fL MCH 31.7 (28.0-33.3) pg MCHC 32.9 (31.6-35.5) g/dL RDW 11.7 (11.5-14.5) % Plt Count 234 (140-400) K/mcL MPV 9.7 (9.4-12.4) fL Immature Gran % 1.1 (0-4) % Seg Neutrophils % 70.8 % Lymphocytes % 17.4 % Monocytes % 10.4 % Eosinophils % 0.0 % Basophils % 0.3 % Neutrophils # 8.7 (1.6-8.9) K/mcL Lymphocytes # 2.2 (0.6-4.6) K/mcL Monocytes # 1.3 (0.0-1.3) K/mcL Eosinophils # 0.0 (0.0-0.6) K/mcL Basophils # 0.0 (0.0-0.2) K/mcL PT 11.6 (9.4-12.1) Seconds INR 1.1 APTT 23.6 L (26.0-36.0) Seconds Sodium 127 L (136-145) mEq/L Potassium 4.8 (3.5-5.1) mEq/L Chloride 95 L (98-107) mEq/L Carbon Dioxide 26 (23-29) mEq/L BUN 28 H (8-23) mg/dL Creatinine 1.12 (0.60-1.20) mg/dL Est GFR ( Amer) 57 L (> 60) Est GFR (Non-Af Amer) 47 L (> 60) BUN/Creatinine Ratio 25 (6-26) Glucose 105 (70-105) mg/dL POC Glucose (58-89) Calculated Osmolality 270 L (280-300) Lactic Acid (0.5-2.2) mmol/L Calcium 9.4 (8.6-10.3) mg/dL Phosphorus 3.3 (2.7-4.5) mg/dL Magnesium 1.8 (1.6-2.6) mg/dL Total Bilirubin 0.4 (0.3-1.0) mg/dL Direct Bilirubin 0.1 (0.0-0.2) mg/dL Indirect Bilirubin 0.3 (0.0-1.2) mg/dL AST 22 (13-39) Units/L ALT 11 (7-52) Units/L Alkaline Phosphatase 87 (34-104) Units/L Troponin I (< 0.04) ng/mL Serum Total Protein 6.2 L (6.4-8.9) g/dL Albumin 3.8 (3.5-5.7) g/dL Globulin 2.4 (2.4-3.5) g/dL Albumin/Globulin Ratio 1.6 (1.1-2.2) Lipase (11-82) Units/L Urine Color (Yellow) Urine Clarity (Clear) Urine pH (5.0-8.0) pH Units Ur Specific [place] (1.010-1.025) Urine Protein (Neg-Trace) mg/dL Urine Glucose (UA) (Normal) mg/dL Urine Ketones (Negative) mg/dL Urine Blood (Negative) Urine Nitrite (Negative) Urine Bilirubin (Negative) Urine Urobilinogen (Normal) mg/dL Ur Leukocyte Esterase (Negative) Urine Microscopic RBC (0-3) per hpf Urine Microscopic WBC (0-3) per hpf Ur Squamous Epith Cells (None-Few) per lpf Amorphous Sediment (Few) Urine Bacteria (None-Few) per hpf Ur Culture Indicated? (NO) Specimen Rejected 12/01/17 12/01/17 12/01/17 Range/Units 15:18 15:23 16:14 WBC (4.3-11.1) K/mcL RBC (3.82-4.97) M/mcL Hgb (11.5-15.4) g/dL Hct (35.3-44.9) % MCV (83.0-100.0) fL MCH (28.0-33.3) pg MCHC (31.6-35.5) g/dL RDW (11.5-14.5) % Plt Count (140-400) K/mcL MPV (9.4-12.4) fL Immature Gran % (0-4) % Seg Neutrophils % % Lymphocytes % % Monocytes % % Eosinophils % % Basophils % % Neutrophils # (1.6-8.9) K/mcL Lymphocytes # (0.6-4.6) K/mcL Monocytes # (0.0-1.3) K/mcL Eosinophils # (0.0-0.6) K/mcL Basophils # (0.0-0.2) K/mcL PT (9.4-12.1) Seconds INR APTT (26.0-36.0) Seconds Sodium (136-145) mEq/L Potassium (3.5-5.1) mEq/L Chloride (98-107) mEq/L Carbon Dioxide (23-29) mEq/L BUN (8-23) mg/dL Creatinine (0.60-1.20) mg/dL Est GFR ( Amer) (> 60) Est GFR (Non-Af Amer) (> 60) BUN/Creatinine Ratio (6-26) Glucose (70-105) mg/dL POC Glucose 96 H (58-89) Calculated Osmolality (280-300) Lactic Acid 0.9 (0.5-2.2) mmol/L Calcium (8.6-10.3) mg/dL Phosphorus (2.7-4.5) mg/dL Magnesium (1.6-2.6) mg/dL Total Bilirubin (0.3-1.0) mg/dL Direct Bilirubin (0.0-0.2) mg/dL Indirect Bilirubin (0.0-1.2) mg/dL AST (13-39) Units/L ALT (7-52) Units/L Alkaline Phosphatase (34-104) Units/L Troponin I 0.04 H* (< 0.04) ng/mL Serum Total Protein (6.4-8.9) g/dL Albumin (3.5-5.7) g/dL Globulin (2.4-3.5) g/dL Albumin/Globulin Ratio (1.1-2.2) Lipase (11-82) Units/L Urine Color (Yellow) Urine Clarity (Clear) Urine pH (5.0-8.0) pH Units Ur Specific [place] (1.010-1.025) Urine Protein (Neg-Trace) mg/dL Urine Glucose (UA) (Normal) mg/dL Urine Ketones (Negative) mg/dL Urine Blood (Negative) Urine Nitrite (Negative) Urine Bilirubin (Negative) Urine Urobilinogen (Normal) mg/dL Ur Leukocyte Esterase (Negative) Urine Microscopic RBC (0-3) per hpf Urine Microscopic WBC (0-3) per hpf Ur Squamous Epith Cells (None-Few) per lpf Amorphous Sediment (Few) Urine Bacteria (None-Few) per hpf Ur Culture Indicated? (NO) Specimen Rejected - Radiology Data Radiology results reviewed: Yes I reviewed the patient's radiology results. - EKG Data EKG #1 EKG attestation: Yes I reviewed and interpreted this EKG. EKG results narrative: EKG done at 1507 Something attending shows sinus rhythm at a rate of 95, MO interval 165, QRS 89 , QTC 366 with a normal axis. There is no acute ST changes no acute T-wave changes no signs of ischemia. No signs of hypertrophy or heart strain or heart block. No signs of WPW/Brugada syndrome. EKG is unchanged when compared with old one done 11/04/17. Attestation Statement - Attestation Attestation: I, Adriel Henson DO, examined this patient [id number] and my medical decision-making was reviewed with Dr. Abiodun Batista, Resident Physician. I agree with the documented findings, disposition and treatment plan as described except to the extent set forth below. Please see my progress notes for details. 82-year-old female presents from home for evaluation of generalized weakness and possible confusion. Patient is not confused on presentation here. Family is with her at the bedside. They are concerned about possible infectious etiology. Chest as a rash over the right side of her chest sorto been there for over a week. She denies any pain or burning. She did fall several weeks ago does have a cracked rib. They thought that maybe this was secondary to the hydrocodone medication she was given for her pain. Patient has not been taking any of the medications at home. Patient is currently alert and oriented. She answers questions appropriately and knows people in the room without any difficulty. Her lungs are clear heart is regular. She has no visible signs of trauma or injury to the head. Abdomen is soft nontender nondistended no guarding no rigidity. Patient moves all 4 extremities without any signs of deficit or neurologic issue. Patient has cranial nerves II through XII grossly intact. Patient does not show any acute signs of decompensation or medical issues at this time. Patient screening evaluation completed with labs and CBC chemistry EKG chest x-ray CT of the head and urinalysis. Patient has what appears to be slightly elevated troponin without any chest pain or symptoms. EKG is otherwise normal. Patient does have a slight electrolyte abnormalities and, WITH UNKNOWN ETIOLOGY AT THIS TIME. 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 PATIENT FAMILY WERE COMFORTABLE WITH THIS PLAN. NO CRITICAL CARE IS APPLIED AND HIS TREATMENT COURSE. SEE DETAILED DOCUMENTATION OF PHYSICAL EXAM, MEDICAL INTERVENTION, MEDICAL DECISION-MAKING, DISPOSITION AND THE RESIDENT PHYSICIAN'S NOTE. NO OTHER ACUTE ISSUES NOTED DURING THE TREATMENT COURSE AND EVALUATION. LENGTHY DISCUSSION WAS HAD WITH THE FAMILY AT THE BEDSIDE REVIEWING THE PRESENTATION SYMPTOMS AND ISSUES IN AN ADVANCED WITH THE COURSE OF CARE. 1825 Patient admitted at this time for altered mentation, lab abnormalities including hyponatremia and elevated troponin. Patient is back to baseline mentation after discussion with the family. They stated that she is acting completely normal at this point. We will continue to monitor the emergency room his admission process is completed. Atrovent 0 last menstrual period every other resources in place to go home with appropriate help. Patient is otherwise stable at this point were no other acute pathology or signs neurologic or cardiopulmonary deficit at this point.
[2017-12-01] MEDS ORDERED: Aspirin 81 MG TAB.CHEW PO ONE (16:53)
[2017-12-01] MEDS ORDERED: Naloxone 0.4 MG/ML INJ IVP PRN (20:16)
[2017-12-01] MEDS ORDERED: *HR* Acetaminophen w/Cod 300-30 mg 1 TAB TABLET PO PRN (20:24)
--- NOTE | 2017-12-01 20:45 | Internal Med History&Physical ---
Date of Encounter: 12/01/17 Time of Encounter: 19:25 Assessment and Plan (1) Shingles Current visit: Yes Status: Acute Pt's rashes is considered shingles based on typical clinical features. Onset time is unclear. Will start valacyclovir 1000mg po tid for 7 days. - Contact isolation - Bactroban TP for skin rupture. Qualifiers: Herpes zoster complications: without complications Qualified Code(s): B02.9 - Zoster without complications (2) Closed T5 fracture Current visit: Yes Status: Acute Saw orthopedics on last admission. Decide not surgery. - Pt is sensitive to pain med, causing confusion. - Will place pt on tylenol #3 for pain control as pt's son said it doesn't cause confusion. Qualifiers: Encounter type: subsequent encounter Fracture morphology: wedge compression Fracture healing: with routine healing Qualified Code(s): S22.050D - Wedge compression fracture of T5-T6 vertebra, subsequent encounter for fracture with routine healing (3) Hyponatremia Current visit: No Status: Acute Pt has chronic hyponatremia, etiology is undetermined. Probably due to poor intake. - Place on regular diet. - Low rate 0.9 NS - Closely monitor sodium level, goal is < 8mEq correction over first 24 hours. - Check TSH and morning cortisal in AM (4) Essential hypertension Current visit: No Status: Chronic Cont home meds. Closely monitor BP (5) DVT prophylaxis Current visit: No Status: Acute Heparin SC (6) Weakness Current visit: Yes Status: Acute Most likely side effects of pain meds, no focal neuro deficit. - Will hold norco, change to tylenol #3 instead - Check TSH, cortisal, vit B12, Folate to r/o other causes of weakness - PT/OT evaluation. (7) Elevated troponin Current visit: Yes Status: Acute Troponin 0.04. Pt denies chest pain. EKG unremarkable. - Continuous cardiac monitoring. - Track 3 sets of troponin. Internal Medicine - H&P: HPI Chief complaint: Weakness Admitted From: Home Plans for Post Hospital Care: Home History of present illness: Ms. Rolle is a 82 year old female with history of hypertension, recent T5 compression fracture, present to ER for weakness and confusion. When I saw patient, patient is awake alert, oriented 3. Per patient's son, patient has a recent T5 compression fracture, saw orthopedic surgeon and decide not doing surgery. Patient was prescribed [place] 5/325 for the pain control and she is confused every time taking the pain meds. Pt denies fever, runny nose, SOB, chest pain, or nausea. Pt denies sluured speech, facial drop, focal weakness/ numbness. In ER, Pt was found rashes on right side back/breast, along with nerve distribution and not cross midline, shingles was considered. Pt denies pain or burning, but c/o sore of the skin. Pt was admitted for general weakness and rashes. Past Med Surg Social Fam HX - Past Medical History Medical history: hypertension, renal disease, seizures Psychiatric history: anxiety, depression - Past Surgical History Surgical History: appendectomy - Social History Smoking Status: Never smoker Smokeless Tobacco Status: No Alcohol use: none Drug use: none - Family History Mother Hx Family Cancer: Yes (breast cancer) Father Hx Family Neuromuscular Disorders: Yes (CVA) Internal Medicine - H&P: Meds Loratadine [Claritin] 10 mg PO DAILY 10/12/16 [History] Pantoprazole Sodium [Protonix] 40 mg PO DAILY 10/12/16 [History] Aspirin 81 mg PO DAILY 12/01/16 [History] Calcium Carbonate/Vitamin D3 [Calcium 500-Vit D3 200 Caplet] 1 each PO DAILY [History] Multivitamin [Multi-Day Vitamins] 1 each PO DAILY 12/01/16 [History] Losartan Potassium [Cozaar] 50 mg PO BID #60 tab 12/03/16 [Rx] Pravastatin Sodium [Pravachol] 20 mg PO HS #30 tablet 12/03/16 [Rx] Acetaminophen/Diphenhydramine [Acetaminophen Pm Caplet] 1 each PO HS PRN [History] Metoprolol [Lopressor] 25 mg PO BID 11/04/17 [History] ALPRAZolam [Xanax 0.5 MG Tablet] 0.5 mg PO BID PRN #4 tablet 11/09/17 [Rx] Melatonin 3 mg PO HS tablet 11/09/17 [Rx] 3 Allergy/AdvReac Type Severity Reaction Status Date / Time aspirin AdvReac See Verified 11/04/17 12:38 Comments All Systems PM: A 10-system review of systems was performed and is negative for pertinent findings except as documented above in the HPI. - Constitutional Vitals: Temp Pulse Resp BP Pulse Ox 98.1 F 81 16 163/98 97 12/01/17 19:02 12/01/17 19:02 12/01/17 19:02 12/01/17 19:02 12/01/17 19:02 General appearance: Present: A&O X 3, no acute distress, answers questions appropriately - Head Head exam: Present: atraumatic, normocephalic - Eye Eye exam: Present: PERRL, conjuntiva pink, sclera anicteric Pupils: Present: PERRL - Neck Neck exam general surgery: Present: supple, trachea midline. Absent: lymphadenopathy - Respiratory Respiratory exam: Present: CTAB. Absent: accessory muscle use, rales, rhonchi, wheezes - Cardiovascular Cardiovascular exam: Present: RRR, +S1, +S2. Absent: diastolic murmur, gallop, rubs, systolic murmur - GI/Abdominal GI/Abdominal exam: Present: normal bowel sounds, soft, no peritoneal signs. Absent: distended, tenderness - Extremities Exam Extremities exam: Present: warm, radial pulses palpable and symmetrical. Absent : calf tenderness, cyanotic, pedal edema - Neurological Exam Neurological exam: Present: CN II-XII intact, oriented X3, no focal deficits. Absent: pronater drift, facial droop, speech deficit - Skin Skin exam: Present: dry, intact, rash (Rashes on right side back and breast, along nerve distribution, not cross midline, with crust/small skin rupture.) Internal Med - H&P Results - Labs CBC & Chem 7: 12/01/17 15:18 12/01/17 15:18 - EKG Data -: EKG Interpreted by Myself EKG shows normal: sinus rhythm Rate: normal - EKG Data Prior EKG available for review: yes When compared to previous EKG: there is no significant change
[2017-12-01] MEDS: valACYclovir 500 MG TABLET PO SCH (21:28)
[2017-12-01] MEDS: 0.9 % Sodium Chloride 1,000 ML IVC SCH (21:38)
[2017-12-02 01:50] LABS: Chloride 97 mEq/L (98-107); Potassium 3.6 mEq/L (3.5-5.1); Sodium 126 mEq/L (136-145)
[2017-12-02 01:51] LABS: BUN/Creatinine Ratio 26 (6-26); Blood Urea Nitrogen 25 mg/dL (8-23); Calcium 8.3 mg/dL (8.6-10.3); Glucose 131 mg/dL (70-105); Osmolality,Calculated 268 (280-300); eGFR For African Americans > 60 (> 60); eGFR For Non-African Americans 56 (> 60)
[2017-12-02 02:12] LABS: Carbon Dioxide 20 mEq/L (23-29)
[2017-12-02 05:22] LABS: Basophils % 0.3 %; Eosinophils % 0.2 %; Hematocrit 37.9 % (35.3-44.9); Hemoglobin 12.4 g/dL (11.5-15.4); Immature Granulocytes % 0.8 % (0-4); Lymphocytes # 2.3 K/mcL (0.6-4.6); Mean Corpuscular HGB Conc 32.7 g/dL (31.6-35.5); Mean Corpuscular Hemoglobin 31.7 pg (28.0-33.3); Mean Corpuscular Volume 96.9 fL (83.0-100.0); Mean Platelet Volume 10.2 fL (9.4-12.4); Monocytes # 1.3 K/mcL (0.0-1.3); Monocytes % 10.9 %; Neutrophils # 8.3 K/mcL (1.6-8.9); Platelet Count 232 K/mcL (140-400); Red Blood Count 3.91 M/mcL (3.82-4.97); Red Cell Distribution Width 11.7 % (11.5-14.5); Segmented Neutrophils % 68.8 %
[2017-12-02] MEDS: *HR* Heparin 5,000 UNIT/ML VIAL SQ SCH ×2 (05:30→18:14)
[2017-12-02 05:36] LABS: Magnesium 1.7 mg/dL (1.6-2.6)
[2017-12-02 05:40] LABS: BUN/Creatinine Ratio 25 (6-26); Blood Urea Nitrogen 23 mg/dL (8-23); Calcium 8.6 mg/dL (8.6-10.3); Carbon Dioxide 24 mEq/L (23-29); Chloride 97 mEq/L (98-107); Glucose 85 mg/dL (70-105); Osmolality,Calculated 269 (280-300); Potassium 4.2 mEq/L (3.5-5.1); Sodium 128 mEq/L (136-145); eGFR For African Americans > 60 (> 60); eGFR For Non-African Americans 58 (> 60)
[2017-12-02 05:49] LABS: Thyroid Stimulating Hormone 0.414 mcIU/mL (0.340-5.600)
[2017-12-02] MEDS: Aspirin 81 MG TAB.CHEW PO SCH (10:09)
[2017-12-02] MEDS: valACYclovir 500 MG TABLET PO SCH ×3 (10:09→20:31)
[2017-12-02] MEDS: 0.9 % Sodium Chloride 1,000 ML IVC SCH ×2 (10:10→18:15)
[2017-12-02 10:37] LABS: BUN/Creatinine Ratio 22 (6-26); Blood Urea Nitrogen 19 mg/dL (8-23); Calcium 8.5 mg/dL (8.6-10.3); Carbon Dioxide 25 mEq/L (23-29); Chloride 97 mEq/L (98-107); Glucose 102 mg/dL (70-105); Osmolality,Calculated 266 (280-300); Sodium 127 mEq/L (136-145); eGFR For African Americans > 60 (> 60); eGFR For Non-African Americans > 60 (> 60)
--- NOTE | 2017-12-02 14:21 | Electrocardiograph Report ---
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
--- NOTE | 2017-12-02 15:41 | Internal Med Progress Note ---
Date of Encounter: 12/02/17 Time of Encounter: 14:00 - Assessment and plan (1) Altered mental status Current Visit: Yes Status: Acute Assessment and plan: Pt with change in mental status since starting to take [place] 5/325mg for recent T5 compression fracture. Son states that every time she took a [place], she was confused and pt also reports associated weakness. We have stopped the [place] and have changed her medication to T3, she is tolerating it well so far. She is alert and awake and answers questions appropriately, but is flat and sometimes slow to respond. Patient with mild leukocytosis and hyponatremia. We will continue to monitor and correct labs to assess for change in mental status. She has been afebrile with no tachycardia, she is normotensive. Pt close to nurse's station Bed alarm and fall precautions Monitor labs and vital signs Qualifiers: Altered mental status type: unspecified Qualified Code(s): R41.82 - Altered mental status, unspecified (2) Closed T5 fracture Current Visit: Yes Status: Acute Assessment and plan: Patient recently diagnosed with T5 fracture. She has been seen by orthopedics and is not having surgery. She was sent to pain management and saw Dr. Glass, was placed on [place] 5/325. Pt appears to have had an adverse reaction to it and it has been stopped and replaced with T3. Continue with T3 for pain control and follow with pain management for follow up. Qualifiers: Encounter type: subsequent encounter Fracture morphology: wedge compression Fracture healing: with routine healing Qualified Code(s): S22.050D - Wedge compression fracture of T5-T6 vertebra, subsequent encounter for fracture with routine healing (3) Elevated troponin Current Visit: Yes Status: Acute Assessment and plan: Patient was flat, adynamic elevation of troponin without chest pain. Drawing another troponin, levels were 0.04 x1 and 0.06 x 2. Patient has prior history of [place]. EKG NSR without ST changes, rate 95, pr interval 165, QRS 89, QTc 366. Patient had an echocardiogram on 11/04/2017. It showed preserved ejection fraction with asymmetric hypertrophy of the basal septum. There is mild LV DD a moderately calcified aortic valve. There is mild , mild TR. Repeat serial troponin Continue telemetry Consider cardiology consultation based on serial troponins (4) Shingles Current Visit: Yes Status: Acute Assessment and plan: Pt with approximately 5inch wide area of excoriation, papules extending from right mid back to under right breast, following a dermatome. Serous drainage noted, skin sloughing off in areas. Pt denies pain, burning, or itching currently or in the recent past She has been started on Valacyclovir 1000mg po bid x 7 days. Dermatology has been consulted for recommendations for rash and medication recommendations/changes, if needed. Qualifiers: Herpes zoster complications: without complications Qualified Code(s): B02.9 - Zoster without complications (5) Weakness Current Visit: Yes Status: Acute Assessment and plan: Plan as above. (6) DVT prophylaxis Current Visit: Yes Status: Acute Assessment and plan: Heparin SQ BID. Encourage ambulation, up to chair. (7) Essential hypertension Current Visit: Yes Status: Chronic Assessment and plan: Pt with mild hypertension. Monitor labs and change medications if necessary. Continue home medications. - Time Spent With Patient less than 15 minutes - Subjective Interval history: Pt was seen and assessed at 1400, son was at bedside. Pt is alert, awake, oriented, and slow to respond. She denies pain, denies headache, n/v/d, pain to rash, dizziness, chest pain, sob, or abdominal pain. Son states that pt is not doing so well at home and might benefit from another stay in at [facility] for rehab. Pt is unaware of how long she has had the rash and denies known injury, pain, burning, or itching currently or in the recent past. - Constitutional Vitals: Temp Pulse Resp BP Pulse Ox 99.0 F 90 18 153/81 96 12/02/17 11:08 12/02/17 11:08 12/02/17 11:08 12/02/17 11:08 12/02/17 11:08 General appearance: Present: cooperative, A&O X 3, pleasant, no acute distress, answers questions appropriately - Head Head exam: Present: atraumatic, normal inspection, normocephalic - Eye Eye exam: Present: normal appearance, conjuntiva pink, sclera anicteric - Neck Neck exam general surgery: Present: supple, trachea midline. Absent: lymphadenopathy, tenderness - Respiratory Respiratory exam: Present: CTAB. Absent: accessory muscle use, chest wall tenderness, rales, respiratory distress, rhonchi, wheezes - Cardiovascular Cardiovascular exam: Present: RRR, +S1, +S2. Absent: bradycardia, diastolic murmur, gallop, rubs, systolic murmur, tachycardia - GI/Abdominal GI/Abdominal exam: Present: normal bowel sounds, soft, no peritoneal signs. Absent: distended, hepatomegaly, tenderness - Extremities Exam Extremities exam: Present: normal capillary refill, normal inspection, warm, radial pulses palpable and symmetrical. Absent: calf tenderness, cyanotic, pedal edema, tenderness - Neurological Exam Neurological exam: Present: alert, altered, oriented X3, no focal deficits, strengths equal and symetr throughout. Absent: facial droop, speech deficit - Skin Skin exam: Present: dry, erythema, intact, normal color, rash, warm - Expanded Skin Exam Type of lesion: Present: rash Distribution of rash: Present: abdomen, back, chest Description of rash: Present: papular Internal Medicine: Result - Labs CBC & Chem 7: 12/02/17 03:39 12/02/17 10:30 - ABG Interpretation ABG results: PT/INR, D-dimer PT 11.6 Seconds (9.4-12.1) 12/01/17 15:18 Consult Discharge Plan - Plan Referrals: Megan Castro DO [Primary Care Provider] -
[2017-12-02 17:34] LABS: HSV Source RIGHT UPPER BACK
--- NOTE | 2017-12-02 17:37 | Dermatology Consult Note ---
Date of Encounter: 12/02/17 Time of Encounter: 17:35 History of Present Illness Reason for Consult: Rash History of Present Illness: Chloe Zavaleta, is an 82-year-old female was admitted to the hospital for neurologic deficits and mental status changes. She was found to be hyponatremic. During her transferred to the hospital, the ENT staff noticed a rash on the right side of her back right thorax and right breast. The rash has been there for at least 2 days. She denies pain and itching. She was started on valacyclovir for suspected shingles. She has never had anything like this before. Review of Systems General/Constitutional: Patient denies fevers, chills, nor recent unintended weight loss, night sweats, no change in appetite or malaise. Hematologic: Patient denies new or enlarging lumps or bumps. Skin: Patient denies new or changing moles, or rash other than what is mentioned above. Past Med Surg Social Fam HX - Past Medical History Medical history: hypertension, renal disease, seizures Psychiatric history: anxiety, depression - Past Surgical History Surgical History: appendectomy - Social History Smoking Status: Never smoker Smokeless Tobacco Status: No Alcohol use: none Drug use: none - Family History Mother Living Status: Hx Family Cancer: Yes (breast cancer) Father Living Status: Hx Family Cardiac Disorders: Yes Hx Family Neuromuscular Disorders: Yes (CVA) Medications and Allergies Loratadine [Claritin] 10 mg PO DAILY 10/12/16 [History] Pantoprazole Sodium [Protonix] 40 mg PO DAILY 10/12/16 [History] Aspirin 81 mg PO DAILY 12/01/16 [History] Calcium Carbonate/Vitamin D3 [Calcium 500-Vit D3 200 Caplet] 1 each PO DAILY [History] Multivitamin [Multi-Day Vitamins] 1 each PO DAILY 12/01/16 [History] Losartan Potassium [Cozaar] 50 mg PO BID #60 tab 12/03/16 [Rx] Pravastatin Sodium [Pravachol] 20 mg PO HS #30 tablet 12/03/16 [Rx] Acetaminophen/Diphenhydramine [Acetaminophen Pm Caplet] 1 each PO HS PRN [History] Metoprolol [Lopressor] 25 mg PO BID 11/04/17 [History] ALPRAZolam [Xanax 0.5 MG Tablet] 0.5 mg PO BID PRN #4 tablet 11/09/17 [Rx] Melatonin 3 mg PO HS tablet 11/09/17 [Rx] Benzonatate [Benzonatate] 100 mg PO DAILY PRN 12/02/17 [History] Guaifenesin [Mucinex] 600 mg PO BID PRN 12/02/17 [History] HYDROcodone/Acet 5/325 mg [[place] 5-325 mg] 1 tab PO Q8H PRN 12/02/17 [History] Lactobacillus Acidophilus [Acidophilus] 1 tab PO BID 12/02/17 [History] 3 Allergy/AdvReac Type Severity Reaction Status Date / Time aspirin AdvReac See Verified 12/02/17 10:14 Comments Examination Vital Signs: Temp Pulse Resp BP Pulse Ox 99.0 F 90 18 153/81 96 12/02/17 11:08 12/02/17 11:08 12/02/17 11:08 12/02/17 11:08 12/02/17 11:08 General Examination: The patient appears alert, oriented X3, in no acute distress, healthy-appearing , normal mood. A detailed skin examination of sites including: scalp, head, neck , face, conjunctive, lids, lips, back, chest/breast/axilla, abdomen, bilateral upper extremities including hands/digits/fingernails, bilateral lower extremities including feet/digits/toenails, genital/groin/buttock, lymph nodes, was completed and found to be normal except: Dermatomal bright red eroded and focally necrotic patch with overlying vesicles involving her mid paraspinal upper back, extending across her thorax and onto her right breast to her sternum. Non tender to touch - Assessment and Plan (1) Acute blistering eruption of skin Current Visit: Yes Status: Acute Favor herpes zoster eruption -- Viral culture swab performed today during examination. Contact precautions are needed. Continue Valacyclovir It is best to keep the open/vesicular areas covered ( vaseline or aquaphor under nonstick gauze and bandage) until the lesions are crusted and dried over - diagnosis was discussed with primary care team Procedure: Dermatology Date of procedure: 12/02/17 Consult Discharge Plan - Plan Referrals: Megan Castro DO [Primary Care Provider] -
[2017-12-02 22:43] LABS: Potassium,Urine 23.5 mEq/L; Sodium, Urine 100.5 mEq/L
[2017-12-03] MEDS: 0.9 % Sodium Chloride 1,000 ML IVC SCH (03:04)
[2017-12-03] MEDS ORDERED: Melatonin 3 MG TABLET PO ONE (03:22)
[2017-12-03 04:49] LABS: Basophils % 0.2 %; Eosinophils % 0.2 %; Hematocrit 33.5 % (35.3-44.9); Immature Granulocytes % 0.5 % (0-4); Lymphocytes # 1.9 K/mcL (0.6-4.6); Lymphocytes % 15.4 %; Mean Corpuscular HGB Conc 32.8 g/dL (31.6-35.5); Mean Corpuscular Hemoglobin 31.6 pg (28.0-33.3); Mean Corpuscular Volume 96.3 fL (83.0-100.0); Mean Platelet Volume 10.2 fL (9.4-12.4); Monocytes % 8.6 %; Neutrophils # 9.1 K/mcL (1.6-8.9); Platelet Count 209 K/mcL (140-400); Red Blood Count 3.48 M/mcL (3.82-4.97); Red Cell Distribution Width 11.6 % (11.5-14.5); Segmented Neutrophils % 75.1 %
[2017-12-03 05:08] LABS: BUN/Creatinine Ratio 24 (6-26); Blood Urea Nitrogen 21 mg/dL (8-23); Calcium 8.2 mg/dL (8.6-10.3); Carbon Dioxide 21 mEq/L (23-29); Chloride 101 mEq/L (98-107); Glucose 102 mg/dL (70-105); Osmolality,Calculated 271 (280-300); Potassium 4.3 mEq/L (3.5-5.1); Sodium 129 mEq/L (136-145); eGFR For African Americans > 60 (> 60); eGFR For Non-African Americans > 60 (> 60)
[2017-12-03] MEDS: *HR* Heparin 5,000 UNIT/ML VIAL SQ SCH ×2 (05:45→17:56)
[2017-12-03] MEDS: valACYclovir 500 MG TABLET PO SCH ×3 (08:00→20:13)
[2017-12-03] MEDS: Aspirin 81 MG TAB.CHEW PO SCH (08:00)
[2017-12-03 11:53] LABS: HSV 2 DNA Not Detected (Not Detect)
--- NOTE | 2017-12-03 13:23 | Internal Med Progress Note ---
Date of Encounter: 12/03/17 Time of Encounter: 09:10 - Assessment and plan (1) Altered mental status Current Visit: Yes Status: Acute Assessment and plan: Pt with change in mental status since starting to take [place] 5/325mg for recent T5 compression fracture. Son states that every time she took a [place], she was confused and pt also reports associated weakness. We have stopped the [place] and have changed her medication to T3, she is tolerating it well so far. She is alert and awake and answers questions appropriately, but is flat and sometimes slow to respond. Patient with mild leukocytosis and hyponatremia that is resolving. We will continue to monitor and correct labs to assess for change in mental status. She has been afebrile with no tachycardia, she is normotensive. Pt close to nurse's station Bed alarm and fall precautions Monitor labs and vital signs Qualifiers: Altered mental status type: unspecified Qualified Code(s): R41.82 - Altered mental status, unspecified (2) Closed T5 fracture Current Visit: Yes Status: Acute Assessment and plan: Patient recently diagnosed with T5 fracture. She has been seen by orthopedics and is not a surgical candidate. She was sent to pain management and saw Dr. Glass, was placed on [place] 5/325. Pt appears to have had an adverse reaction to it, it has been stopped and replaced with T3. Continue with T3 for pain control and follow with pain management for follow up. Qualifiers: Encounter type: subsequent encounter Fracture morphology: wedge compression Fracture healing: with routine healing Qualified Code(s): S22.050D - Wedge compression fracture of T5-T6 vertebra, subsequent encounter for fracture with routine healing (3) Elevated troponin Current Visit: Yes Status: Acute Assessment and plan: Patient was flat, adynamic elevation of troponin without chest pain. Levels were 0.04 x1 and 0.06 x 2, 0.04. Patient has prior history of [place]. EKG NSR without ST changes, rate 95, pr interval 165, QRS 89, QTc 366. Chest xray negative for acute process. Patient had an echocardiogram on 11/04/2017. It showed preserved ejection fraction with asymmetric hypertrophy of the basal septum. There is mild LV DD a moderately calcified aortic valve. There is mild , mild TR. Continues to deny chest pain today. Repeat serial troponin Continue telemetry (4) Shingles Current Visit: Yes Status: Acute Assessment and plan: Pt with approximately 5 inch wide area of excoriation, papules extending from right mid back to under right breast, following a dermatome. Serous drainage noted, skin sloughing off in areas. Pt denies pain, burning, or itching currently or in the recent past She has been started on Valacyclovir 1000mg po bid x 7 days. Dermatology agrees with shingles diagnosis and treatment, HSV I and II negative. Continue Valacyclovir 1000mg bid x 7 days Watch for signs of infection Dressing for drainage and protection. Qualifiers: Herpes zoster complications: without complications Qualified Code(s): B02.9 - Zoster without complications (5) Weakness Current Visit: Yes Status: Acute Assessment and plan: Plan as above. PT/OT recommend SNF after discharge. Referral has been made to [facility]. (6) DVT prophylaxis Current Visit: Yes Status: Acute Assessment and plan: Heparin SQ BID. Encourage ambulation, up to chair. (7) Essential hypertension Current Visit: Yes Status: Chronic Assessment and plan: Pt with mild hypertension. Monitor labs and change medications if necessary. Hydralazine 10mg IV prn. Continue home medications. - Time Spent With Patient less than 15 minutes - Subjective Interval history: Pt was seen and assessed at 0910. Pt is drowsy, apparently was given a Melatonin at around 0330. She denies pain, denies headache, n/v/d, pain to rash , dizziness, chest pain, sob, or abdominal pain. Later in the afternoon, she has returned to baseline and is answering questions appropriately. - Constitutional Vitals: Temp Pulse Resp BP Pulse Ox 98.3 F 85 16 128/78 91 12/03/17 10:25 12/03/17 10:25 12/03/17 10:25 12/03/17 10:25 12/03/17 10:25 General appearance: Present: cooperative, A&O X 3, pleasant, no acute distress, answers questions appropriately - Head Head exam: Present: atraumatic, normal inspection, normocephalic - Eye Eye exam: Present: normal appearance, conjuntiva pink, sclera anicteric - Neck Neck exam general surgery: Present: supple, trachea midline. Absent: lymphadenopathy - Respiratory Respiratory exam: Present: CTAB. Absent: accessory muscle use, chest wall tenderness, rales, rhonchi, wheezes - Cardiovascular Cardiovascular exam: Present: RRR, +S1, +S2. Absent: diastolic murmur, gallop, rubs, systolic murmur - GI/Abdominal GI/Abdominal exam: Present: normal bowel sounds, soft, no peritoneal signs. Absent: distended, hepatomegaly, tenderness - Extremities Exam Extremities exam: Present: normal capillary refill, normal inspection, warm, radial pulses palpable and symmetrical. Absent: calf tenderness, cyanotic, pedal edema, tenderness - Neurological Exam Neurological exam: Present: alert, oriented X3, no focal deficits. Absent: facial droop, speech deficit - Skin Skin exam: Present: dry, intact, normal color, warm. Absent: rash Internal Medicine: Result - Labs CBC & Chem 7: 12/03/17 03:14 12/03/17 03:14 Labs: Short CBC 12/03/17 Range/Units 03:14 WBC 12.0 H (4.3-11.1) K/mcL Hgb 11.0 L (11.5-15.4) g/dL Hct 33.5 L (35.3-44.9) % Plt Count 209 (140-400) K/mcL Neutrophils # 9.1 H (1.6-8.9) K/mcL BMP 12/03/17 03:14 Sodium 129 L Potassium 4.3 Chloride 101 Carbon Dioxide 21 L BUN 21 Creatinine 0.87 Glucose 102 Calcium 8.2 L Cardiac Enzymes 12/02/17 Range/Units 16:06 Troponin I 0.04 H* (< 0.04) ng/mL - ABG Interpretation ABG results: PT/INR, D-dimer PT 11.6 Seconds (9.4-12.1) 12/01/17 15:18 Consult Discharge Plan - Plan Referrals: Megan Castro DO [Primary Care Provider] -
[2017-12-04 04:09] LABS: Basophils % 0.3 %; Eosinophils % 0.4 %; Hematocrit 32.4 % (35.3-44.9); Hemoglobin 10.7 g/dL (11.5-15.4); Immature Granulocytes % 0.6 % (0-4); Lymphocytes # 1.6 K/mcL (0.6-4.6); Lymphocytes % 16.9 %; Mean Corpuscular Hemoglobin 31.6 pg (28.0-33.3); Mean Corpuscular Volume 95.6 fL (83.0-100.0); Mean Platelet Volume 9.8 fL (9.4-12.4); Monocytes # 0.9 K/mcL (0.0-1.3); Monocytes % 9.8 %; Neutrophils # 6.8 K/mcL (1.6-8.9); Platelet Count 218 K/mcL (140-400); Red Blood Count 3.39 M/mcL (3.82-4.97); Red Cell Distribution Width 11.7 % (11.5-14.5)
[2017-12-04 04:26] LABS: BUN/Creatinine Ratio 20 (6-26); Blood Urea Nitrogen 17 mg/dL (8-23); Calcium 8.5 mg/dL (8.6-10.3); Carbon Dioxide 22 mEq/L (23-29); Chloride 103 mEq/L (98-107); Glucose 113 mg/dL (70-105); Osmolality,Calculated 274 (280-300); Potassium 3.9 mEq/L (3.5-5.1); Sodium 131 mEq/L (136-145); eGFR For African Americans > 60 (> 60); eGFR For Non-African Americans > 60 (> 60)
[2017-12-04] MEDS: *HR* Heparin 5,000 UNIT/ML VIAL SQ SCH ×2 (05:12→18:27)
[2017-12-04] MEDS: valACYclovir 500 MG TABLET PO SCH ×3 (08:49→21:35)
[2017-12-04] MEDS: Aspirin 81 MG TAB.CHEW PO SCH (08:50)
--- NOTE | 2017-12-04 17:24 | Internal Med Progress Note ---
Date of Encounter: 12/04/17 Time of Encounter: 13:00 - Assessment and plan (1) Altered mental status Current Visit: Yes Status: Acute Assessment and plan: Pt with change in mental status since starting to take [place] 5/325mg for recent T5 compression fracture. Son states that every time she took a [place], she was confused and pt also reports associated weakness. We have stopped the [place] and have changed her medication to T3, she is tolerating it well so far. She is alert and awake and answers questions appropriately, and has not returned to her baseline. Patient with hyponatremia that is resolving. His could have been contributory to mental status change. She has been afebrile with no tachycardia, she is normotensive. Pt close to nurse's station Bed alarm and fall precautions Monitor labs and vital signs Qualifiers: Altered mental status type: unspecified Qualified Code(s): R41.82 - Altered mental status, unspecified (2) Closed T5 fracture Current Visit: Yes Status: Acute Assessment and plan: Continue with T3 for pain control and follow with pain management for follow up. Patient has responded well, reports good pain relief. Confusion seems to have subsided. Qualifiers: Encounter type: subsequent encounter Fracture morphology: wedge compression Fracture healing: with routine healing Qualified Code(s): S22.050D - Wedge compression fracture of T5-T6 vertebra, subsequent encounter for fracture with routine healing (3) Elevated troponin Current Visit: Yes Status: Acute Assessment and plan: Patient was flat, adynamic elevation of troponin without chest pain. Levels were 0.04 x1 and 0.06 x 2, 0.04. Patient has prior history of [place]. EKG NSR without ST changes, rate 95, pr interval 165, QRS 89, QTc 366. Chest xray negative for acute process. Repeat troponin today 0.18, 0.12. Patient had an echocardiogram on 11/04/2017. It showed preserved ejection fraction with asymmetric hypertrophy of the basal septum. There is mild LV DD a moderately calcified aortic valve. There is mild , mild TR. Continues to deny chest pain today. Likely etiologies include stress reaction from shingles in brief episodes of hypertension. Patient's blood pressure seems to have been more controlled, we will continue to monitor. Continue telemetry Cardiology has been consulted for recommendations. (4) Shingles Current Visit: Yes Status: Acute Assessment and plan: Pt with approximately 5 inch wide area of excoriation, papules extending from right mid back to under right breast, following a dermatome. Serous drainage noted, skin sloughing off in areas. Pt denies pain, burning, or itching currently or in the recent past She has been started on Valacyclovir 1000mg po bid x 7 days. Dermatology agrees with shingles diagnosis and treatment, HSV I and II negative. Continue Valacyclovir 1000mg bid x 7 days Watch for signs of infection due to open wound with excoriation and drainage Dressing for drainage and protection. Qualifiers: Herpes zoster complications: without complications Qualified Code(s): B02.9 - Zoster without complications (5) Weakness Current Visit: Yes Status: Acute Assessment and plan: Plan as above. Patient will be discharged to [facility] tomorrow. (6) DVT prophylaxis Current Visit: Yes Status: Acute Assessment and plan: Heparin SQ BID. Encourage ambulation, up to chair. (7) Essential hypertension Current Visit: Yes Status: Chronic Assessment and plan: Pt with mild hypertension. Monitor labs and change medications if necessary. Hydralazine 10mg IV prn for systolic blood pressure greater than 180 and diastolic greater than 100 Continue home medications. - Time Spent With Patient less than 15 minutes - Subjective Interval history: Pt was seen and assessed at 1300. Vision is alert and awake, answers questions appropriately. She is aware of going to [facility] tomorrow. Son is at bedside and all questions were answered.. She denies pain, denies headache, n/v/ d, pain to rash, dizziness, chest pain, sob, or abdominal pain. . - Constitutional Vitals: Temp Pulse Resp BP Pulse Ox 98.0 F 88 16 147/80 96 12/04/17 15:39 12/04/17 15:39 12/04/17 15:39 12/04/17 15:39 12/04/17 15:39 General appearance: Present: cooperative, A&O X 3, pleasant, no acute distress, answers questions appropriately - Head Head exam: Present: atraumatic, normal inspection, normocephalic - Eye Eye exam: Present: normal appearance, conjuntiva pink, sclera anicteric - Neck Neck exam general surgery: Present: supple, trachea midline. Absent: lymphadenopathy - Respiratory Respiratory exam: Present: CTAB. Absent: accessory muscle use, rales, rhonchi, wheezes - Cardiovascular Cardiovascular exam: Present: RRR, +S1, +S2. Absent: diastolic murmur, gallop, rubs, systolic murmur - GI/Abdominal GI/Abdominal exam: Present: normal bowel sounds, soft. Absent: distended, tenderness - Extremities Exam Extremities exam: Present: normal capillary refill, normal inspection, warm, radial pulses palpable and symmetrical. Absent: calf tenderness, cyanotic, pedal edema, tenderness - Neurological Exam Neurological exam: Present: alert, oriented X3, no focal deficits. Absent: facial droop, speech deficit - Skin Skin exam: Present: dry, intact, normal color, rash, warm Internal Medicine: Result - Labs CBC & Chem 7: 12/04/17 03:40 12/04/17 03:40 Labs: Short CBC 12/04/17 Range/Units 03:40 WBC 9.5 (4.3-11.1) K/mcL Hgb 10.7 L (11.5-15.4) g/dL Hct 32.4 L (35.3-44.9) % Plt Count 218 (140-400) K/mcL Neutrophils # 6.8 (1.6-8.9) K/mcL BMP 12/04/17 03:40 Sodium 131 L Potassium 3.9 Chloride 103 Carbon Dioxide 22 L BUN 17 Creatinine 0.83 Glucose 113 H Calcium 8.5 L Cardiac Enzymes 12/04/17 12/04/17 Range/Units 08:18 14:43 Troponin I 0.18 H* 0.12 H* (< 0.04) ng/mL - ABG Interpretation ABG results: PT/INR, D-dimer PT 11.6 Seconds (9.4-12.1) 12/01/17 15:18 Consult Discharge Plan - Plan Referrals: Megan Castro DO [Primary Care Provider] -
[2017-12-05] MEDS: *HR* Heparin 5,000 UNIT/ML VIAL SQ SCH (06:18)
[2017-12-05] MEDS: Aspirin 81 MG TAB.CHEW PO SCH (10:05)
[2017-12-05] MEDS: valACYclovir 500 MG TABLET PO SCH ×2 (10:05→14:59)
--- NOTE | 2017-12-05 10:55 | Discharge Summary ---
Date of Encounter: 12/05/17 Time of Encounter: 09:30 - Discharge Diagnosis (1) Altered mental status Priority: Primary Status: Acute Comments: Pt with change in mental status since starting to take Pauline 5/325mg for recent T5 compression fracture. Son states that every time she took a Pauline, she was confused and pt also reports associated weakness. We have stopped the Pauline and have changed her medication to T3, she is tolerating it well so far. She is alert and awake and answers questions appropriately, she has returned to her baseline. Patient with hyponatremia that is resolving and stable. His could have been contributory to mental status change. She has been afebrile with no tachycardia, she is normotensive. Qualifiers: Altered mental status type: unspecified Qualified Code(s): R41.82 - Altered mental status, unspecified (2) Closed T5 fracture Priority: Secondary Status: Acute Comments: Remote T5 fracture, continue T3 for pain control and follow up with pain management after discharge. Do not restart Vicodin due to adverse reaction of AMS. Qualifiers: Encounter type: subsequent encounter Fracture morphology: wedge compression Fracture healing: with routine healing Qualified Code(s): S22.050D - Wedge compression fracture of T5-T6 vertebra, subsequent encounter for fracture with routine healing (3) Elevated troponin Priority: Secondary Status: Acute Comments: Patient had a flat, adynamic elevation of troponin without chest pain. Levels were 0.04 x1 and 0.06 x 2, 0.04. Patient has prior history of [place]. EKG NSR without ST changes, rate 95, pr interval 165, QRS 89, QTc 366. Chest xray negative for acute process. Repeat troponin 0.18, 0.12. Cardiology consulted. Patient had an echocardiogram on 11/04/2017. It showed preserved ejection fraction with asymmetric hypertrophy of the basal septum. There is mild LV DD a moderately calcified aortic valve. There is mild , mild TR. Denies chest pain throughout visit. Likely etiologies include stress reaction from shingles and brief episodes of hypertension. Patient's blood pressure seems to have been more controlled, we will continue to monitor. Cardiology has evaluated pt and see no need for further testing and have signed off. (4) Shingles Priority: Secondary Status: Acute Comments: Continue Valacyclovir 1000mg po bid for a total of 7 days. Watch for signs of infection May bandage for protection and for drainage. Qualifiers: Herpes zoster complications: without complications Qualified Code(s): B02.9 - Zoster without complications (5) Weakness Priority: Secondary Status: Acute Comments: Pt will be discharged to [facility] for PT/OT (6) Essential hypertension Priority: Secondary Status: Chronic Comments: Pt with mild hypertension, HCTZ was stopped due to hyponatremia, consider restarting after discharge. Monitor BP closely. (7) DVT prophylaxis Priority: Secondary Status: Acute Comments: Heparin SQ BID. Pt has been ambulatory and up to chair. - Discharge Medications Prescriptions: Acetaminophen w/Cod 300-30 mg [Tylenol w/Codeine #3] 1 tab PO Q6HR PRN 2 Days # 8 tablet PRN Reason: Pain valACYclovir [Valtrex] 1,000 mg PO TID #12 tablet Home Medications: Loratadine [Claritin] 10 mg PO DAILY 10/12/16 [History] Pantoprazole Sodium [Protonix] 40 mg PO DAILY 10/12/16 [History] Aspirin 81 mg PO DAILY 12/01/16 [History] Calcium Carbonate/Vitamin D3 [Calcium 500-Vit D3 200 Caplet] 1 each PO DAILY [History] Multivitamin [Multi-Day Vitamins] 1 each PO DAILY 12/01/16 [History] Losartan Potassium [Cozaar] 50 mg PO BID #60 tab 12/03/16 [Rx] Pravastatin Sodium [Pravachol] 20 mg PO HS #30 tablet 12/03/16 [Rx] Metoprolol [Lopressor] 25 mg PO BID 11/04/17 [History] ALPRAZolam [Xanax 0.5 MG Tablet] 0.5 mg PO BID PRN #4 tablet 11/09/17 [Rx] Melatonin 3 mg PO HS tablet 11/09/17 [Rx] Benzonatate 100 mg PO DAILY PRN 12/02/17 [History] Guaifenesin [Mucinex] 600 mg PO BID PRN 12/02/17 [History] Lactobacillus Acidophilus [Acidophilus] 1 tab PO BID 12/02/17 [History] Acetaminophen w/Cod 300-30 mg [Tylenol w/Codeine #3] 1 tab PO Q6HR PRN 2 Days # 8 tablet 12/05/17 [Rx] Calcium Carbonate [Tums] 1,000 mg PO TID tab.chew 12/05/17 [Rx] Mupirocin [Bactroban Oint] 1 appl TP BID tube 12/05/17 [Rx] valACYclovir [Valtrex] 1,000 mg PO TID #12 tablet 12/05/17 [Rx] Allergies/Adverse Reactions: 3 Allergy/AdvReac Type Severity Reaction Status Date / Time aspirin AdvReac See Verified 12/02/17 10:14 Comments Procedures/tests Complete & Pending: Procedures Performed prior 72 hours Category Date Time Status EKG [ECG 12 lead ECG] [ECG] Stat Y 12/04/17 11:29 Completed Date of admission: 12/02/17 13:52 Primary care physician: Megan Castro DO Consults: 12/04/17 17:20 Consult to Cardiology [CONS] Routine Comment: Consulting Provider: Cardiology Jeannie Reason for Consult: elevated troponins, unclear etiology HTN vs stress from shingles? Time Notified: 17:21 Call Completed: Yes Discharging clinician: Jennifer Woodard Anticipated date of discharge: 12/05/17 - Patient Status Disposition: Transfer SNF Condition: Fair Functional capacity at discharge: uses cane/walker Overall status at discharge: patient is progressing back to baseline - Discharge Instructions Instructions: Herpes Zoster (DC), Preventing Infections (GEN) Follow Up With: Megan Castro DO [Primary Care Provider] - - Diet and Activity Activity: as per physical therapy Diet: advance to your usual diet Hospital course: Ms. Rolle is a 82 year old female with PMH of tremors, HTN, falls, closed T5 fracture. Pt presented to the ED with c/o AMS, most likely due to side effect of Pauline and hyponatremia. Pauline and HCTZ were stopped and pt improved. She was treated with IVF hydration and fluid restriction and sodium is stable at 131, will need to continue to monitor at [facility]. Pt will also need monitoring for BP since medication was stopped. Pauline was changed to T3 and pt reports adequate pain relief and is tolerating it well. Pt has outbreak of shingles to right back , torso, and breast with serous drainage, some skin sloughing. Pt denies any pain, itching, or burning and has been taking Valacyclovir 1000mg po TID and will complete the course at [facility]. Mildly elevated troponin, pt has been seen by cardiology and there are no further recommendations or need for testing. Suggested from HTN, blood pressure is well controlled currently, continue to closely monitor at [facility]. Vitals are stable, labs are stable and WNL, Pt is ready for discharge. - Time Spent with Patient Total time spent providing and/or coordinating discharge services: Less than 30 minutes - Constitutional Vitals: Temp Pulse Resp BP Pulse Ox 98.6 F 92 16 154/83 95 12/05/17 06:51 12/05/17 06:51 12/05/17 06:51 12/05/17 06:51 12/05/17 06:51 General appearance: Present: cooperative, A&O X 3, pleasant, no acute distress, answers questions appropriately - Head Head exam: Present: atraumatic, normal inspection, normocephalic - Eye Eye exam: Present: normal appearance, conjuntiva pink, sclera anicteric - Neck Neck exam general surgery: Present: normal inspection, supple, trachea midline. Absent: lymphadenopathy, tenderness - Respiratory Respiratory exam: Present: chest wall tenderness, CTAB, respiratory distress. Absent: accessory muscle use, rales, rhonchi, wheezes - Cardiovascular Cardiovascular exam: Present: RRR, +S1, +S2. Absent: diastolic murmur, gallop, rubs, systolic murmur - GI/Abdominal GI/Abdominal exam: Present: normal bowel sounds, soft, no peritoneal signs. Absent: distended, hepatomegaly, tenderness - Extremities Exam Extremities exam: Present: normal capillary refill, normal inspection, warm, radial pulses palpable and symmetrical. Absent: calf tenderness, cyanotic, pedal edema - Neurological Exam Neurological exam: Present: alert, oriented X3, no focal deficits. Absent: facial droop, speech deficit - Skin Skin exam: Present: dry, intact, normal color, warm. Absent: rash
--- NOTE | 2017-12-05 14:49 | Cardiology Consult Note ---
Date of Encounter: 12/05/17 Time of Encounter: 14:44 Assessment and Plan (1) Elevated troponin Current Visit: Yes Status: Acute Unclear significance. May be secondary to spikes in BP. No noted cardiac symptoms. No acute EKG changes. ECHO shows normal LV function and mild . We will assure that she is on adequate medical mgmt., do not think further cardiac testing is needed. (2) Essential hypertension Current Visit: Yes Status: Chronic Will increase lopressor. Discussion w patient/family: The assessment and plan as outlined above was discussed with the patient and/or family members who expressed understanding and agreement. All questions were answered. Thank you for involving us in the care of your patient. Please call with any questions. History of Present Illness Consult date: 12/05/17 Requesting physician: Jey Mckeon Consult reason: Abnormal trop. History of present illness: Ms. Rolle is a 82 year old female with a admitted with confusion from pain medications she was taking secondary to shingles and T5 compression fracture. Noted to have mildly elevated troponin wthout any cardiac complaints. Past Med Surg Social Fam HX - Past Medical History Medical history: hypertension, renal disease, seizures Psychiatric history: anxiety, depression - Past Surgical History Surgical History: appendectomy - Social History Smoking Status: Never smoker Smokeless Tobacco Status: No Alcohol use: none Drug use: none - Family History Mother Living Status: Hx Family Cancer: Yes (breast cancer) Father Living Status: Hx Family Cardiac Disorders: Yes Hx Family Neuromuscular Disorders: Yes (CVA) Medications and Allergies Loratadine [Claritin] 10 mg PO DAILY 10/12/16 [History] Pantoprazole Sodium [Protonix] 40 mg PO DAILY 10/12/16 [History] Aspirin 81 mg PO DAILY 12/01/16 [History] Calcium Carbonate/Vitamin D3 [Calcium 500-Vit D3 200 Caplet] 1 each PO DAILY [History] Multivitamin [Multi-Day Vitamins] 1 each PO DAILY 12/01/16 [History] Losartan Potassium [Cozaar] 50 mg PO BID #60 tab 12/03/16 [Rx] Pravastatin Sodium [Pravachol] 20 mg PO HS #30 tablet 12/03/16 [Rx] Metoprolol [Lopressor] 25 mg PO BID 11/04/17 [History] ALPRAZolam [Xanax 0.5 MG Tablet] 0.5 mg PO BID PRN #4 tablet 11/09/17 [Rx] Melatonin 3 mg PO HS tablet 11/09/17 [Rx] Benzonatate 100 mg PO DAILY PRN 12/02/17 [History] Guaifenesin [Mucinex] 600 mg PO BID PRN 12/02/17 [History] Lactobacillus Acidophilus [Acidophilus] 1 tab PO BID 12/02/17 [History] Acetaminophen w/Cod 300-30 mg [Tylenol w/Codeine #3] 1 tab PO Q6HR PRN 2 Days # 8 tablet 12/05/17 [Rx] Calcium Carbonate [Tums] 1,000 mg PO TID tab.chew 12/05/17 [Rx] Mupirocin [Bactroban Oint] 1 appl TP BID tube 12/05/17 [Rx] valACYclovir [Valtrex] 1,000 mg PO TID #12 tablet 12/05/17 [Rx] 3 Allergy/AdvReac Type Severity Reaction Status Date / Time aspirin AdvReac See Verified 12/02/17 10:14 Comments All Systems Review: A 10-system review of systems was performed and is negative for pertinent findings except as documented above in the HPI. Physical Examination Vital Signs, Last 4 Hours Temp Pulse Resp BP Pulse Ox 12/05/17 12:11 98.8 F 84 16 147/80 96 General: Conversant, No Apparent Distress HEENT: Atraumatic, Normocephaly, Mucus Membranes Moist Cardiac: Other (NSR, ADIEL) Lungs: Other (scattered ronchi) Neuro: Alert and responsive, No focal deficits noted Abdomen: Soft, Non-Tender Skin: No rashes noted on visualized skin Musculoskeletal: No Chest Wall Tenderness Results 12/04/17 03:40 12/05/17 03:10 Lab Results 12/04/17 12/05/17 14:43 03:10 Sodium 131 L Troponin I 0.12 H* - EKG Interpretation EKG results cardiology: personally reviewed (NSR, possible old inferior infarct , no change form EKG one year ago) Consult Discharge Plan - Plan Instructions: Herpes Zoster (DC), Preventing Infections (GEN) Referrals: Megan Castro DO [Primary Care Provider] - Prescriptions: Acetaminophen w/Cod 300-30 mg [Tylenol w/Codeine #3] 1 tab PO Q6HR PRN 2 Days # 8 tablet PRN Reason: Pain valACYclovir [Valtrex] 1,000 mg PO TID #12 tablet
[2017-12-05 16:18] VITALS: BP 147/80
--- NOTE | 2017-12-05 17:22 | Physician Discharge Referral ---
ExtendedCare Referral Info Transfer To: [facility] Provider in Charge after Transfer: PCP Institutional Level of Care: Intermediate - Diagnosis (1) Altered mental status Priority: Primary Status: Acute (2) Closed T5 fracture Priority: Secondary Status: Acute (3) Elevated troponin Priority: Secondary Status: Acute (4) Shingles Priority: Secondary Status: Acute (5) Weakness Priority: Secondary Status: Acute (6) Essential hypertension Priority: Secondary Status: Chronic (7) DVT prophylaxis Priority: Secondary Status: Acute Prognosis: Fair Aware of Diagnosis: Patient, Family - Transfer Medications Prescriptions: Acetaminophen w/Cod 300-30 mg [Tylenol w/Codeine #3] 1 tab PO Q6HR PRN 2 Days # 8 tablet PRN Reason: Pain valACYclovir [Valtrex] 1,000 mg PO TID #12 tablet Home Medications: Loratadine [Claritin] 10 mg PO DAILY 10/12/16 [History] Pantoprazole Sodium [Protonix] 40 mg PO DAILY 10/12/16 [History] Aspirin 81 mg PO DAILY 12/01/16 [History] Calcium Carbonate/Vitamin D3 [Calcium 500-Vit D3 200 Caplet] 1 each PO DAILY [History] Multivitamin [Multi-Day Vitamins] 1 each PO DAILY 12/01/16 [History] Losartan Potassium [Cozaar] 50 mg PO BID #60 tab 12/03/16 [Rx] Pravastatin Sodium [Pravachol] 20 mg PO HS #30 tablet 12/03/16 [Rx] Metoprolol [Lopressor] 25 mg PO BID 11/04/17 [History] ALPRAZolam [Xanax 0.5 MG Tablet] 0.5 mg PO BID PRN #4 tablet 11/09/17 [Rx] Melatonin 3 mg PO HS tablet 11/09/17 [Rx] Benzonatate 100 mg PO DAILY PRN 12/02/17 [History] Guaifenesin [Mucinex] 600 mg PO BID PRN 12/02/17 [History] Lactobacillus Acidophilus [Acidophilus] 1 tab PO BID 12/02/17 [History] Acetaminophen w/Cod 300-30 mg [Tylenol w/Codeine #3] 1 tab PO Q6HR PRN 2 Days # 8 tablet 12/05/17 [Rx] Calcium Carbonate [Tums] 1,000 mg PO TID tab.chew 12/05/17 [Rx] Mupirocin [Bactroban Oint] 1 appl TP BID tube 12/05/17 [Rx] valACYclovir [Valtrex] 1,000 mg PO TID #12 tablet 12/05/17 [Rx] Allergies/Adverse Reactions: 3 Allergy/AdvReac Type Severity Reaction Status Date / Time aspirin AdvReac See Verified 12/02/17 10:14 Comments - Respiratory Orders Smoking Cessation: Smoking cessation has been advised. For more information, call the [place] Tobacco Quit Line at 7-098-BJCONOW. CERTIFICATION: I certify that the transfer of the above named patient to an Extended Care Facility is necessary for the continuing treatment of the diagnosis listed. The above information is true and accurate reflection of patient's current condition. Confidential - Redisclosure prohibited without a patient's written consent.
--- NOTE | 2017-12-06 10:22 | Electrocardiograph Report ---
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
== END 2017-12-05 18:10 | DRG 948 ==
LOC: EMEROO 14:41 → 3BNU 14:41
PROVIDERS: ADMIT Internal Medicine Cardiovascular Disease; ATTEND Internal Medicine

== ENCOUNTER 2017-12-14 16:33 | Inpatient (IN) ==
--- NOTE | 2017-12-14 17:01 | Emergency Department Note ---
Disposition Clinical Impression: Hyponatremia Disposition: Admitted As Inpatient Condition: Fair Referrals: Megan Castro DO [Primary Care Provider] - Forms: ED Satisfaction Letter Time of Disposition: 18:48 Recheck wound or abnormal lab - General Chief Complaint: ED Recheck/Abnormal Lab/Rx Stated Complaint: low sodium Time Seen by Provider: 12/14/17 16:36 Source: patient, EMS Mode of arrival: EMS Limitations: no limitations Nursing Notes Reviewed: Yes Vital Signs Reviewed: Yes - History of Present Illness HPI Narrative: 82 year old female who presents from SNF after have routine labs drawn showing Na of 121. She was recently admitted to this facility from 12/01/17 to 12/05/17 with AMS secondary to hyponatremia vs medication side effect. She reports no current symptoms including numbness, tingling, pain, SOB, dizziness, nausea, vomiting, abnormal bowel movements. She states that her dietary intake has been minimal since she was discharged, as she has not had an appetite. She also reports she has noticed some bilateral lower extremity swelling. Pt Subjective Complaint: abnormal lab(s) Initial Visit (ago): hour(s) Symptoms Since Prior Visit: no new symptoms Associated symptoms: none - Related Data Home Medications Medication Instructions Recorded Confirmed Loratadine [Claritin] 10 mg PO DAILY 10/12/16 12/02/17 Pantoprazole Sodium [Protonix] 40 mg PO DAILY 10/12/16 12/02/17 Aspirin 81 mg PO DAILY 12/01/16 12/02/17 Calcium Carbonate/Vitamin D3 1 each PO DAILY 12/01/16 12/02/17 [Calcium 500-Vit D3 200 Caplet] Multivitamin [Multi-Day Vitamins] 1 each PO DAILY 12/01/16 12/02/17 Metoprolol [Lopressor] 25 mg PO BID 11/04/17 12/02/17 Benzonatate 100 mg PO DAILY PRN 12/02/17 12/02/17 Guaifenesin [Mucinex] 600 mg PO BID PRN 12/02/17 12/02/17 Lactobacillus Acidophilus 1 tab PO BID 12/02/17 12/02/17 [Acidophilus] Previous Rx's Medication Instructions Recorded Losartan Potassium [Cozaar] 50 mg PO BID #60 tab 12/03/16 Pravastatin Sodium [Pravachol] 20 mg PO HS #30 tablet 12/03/16 Melatonin 3 mg PO HS tablet 11/09/17 ALPRAZolam [Xanax 0.5 MG Tablet] 0.5 mg PO BID PRN 1 Days #2 tablet 12/05/17 Acetaminophen w/Cod 300-30 mg 1 tab PO Q6HR PRN 2 Days #8 tablet 12/05/17 [Tylenol w/Codeine #3] Calcium Carbonate [Tums] 1,000 mg PO TID tab.chew 12/05/17 Mupirocin [Bactroban Oint] 1 appl TP BID tube 12/05/17 valACYclovir [Valtrex] 1,000 mg PO TID #12 tablet 12/05/17 Allergies Allergy/AdvReac Type Severity Reaction Status Date / Time aspirin AdvReac See Verified 12/02/17 10:14 Comments All systems ED: reviewed and negative except as stated. Past Medical History - Past Medical History Medical history: Reports: hypertension, renal disease, seizures Surgical history: Reports: appendectomy Psychiatric history: Reports: anxiety, depression - Social History Smoking Status: Never smoker Smokeless Tobacco Status: No Alcohol use: Reports: none Drug use: Reports: none Physical Exam - General Limitations: no limitations General appearance: alert, in no apparent distress - Head Head exam: atraumatic, normocephalic, normal inspection - ENT ENT exam: normal exam, normal oropharynx, mucous membranes moist - Chest Chest inspection: Present: normal inspection, symmetric chest wall rise, rash ( vesicular rash from left breast to back around T5 dermatome) - Respiratory Respiratory exam: Present: normal lung sounds bilaterally, other (rales in LLL) - Cardiovascular Cardiovascular exam: Present: regular rate, normal rhythm, normal heart sounds, systolic murmur - Abdominal Exam Abdominal exam: Present: soft, Non-Tender. Absent: tenderness, distention, guarding, rebound, rigidity - Extremities Exam Extremities exam: Present: pedal edema - Expanded Lower Extremity Exam Lower leg exam: Present: swelling (pretibial 3+ edema) - Back Exam Back exam: Present: rashes Course Course Narrative: Pt sent from SNF for hyponatremia of 120. Labs and workup significant for hyponatremia consistent from reported, normal BNP, CBC, kidney function. CXR wnl. Pt's Na on discharge on 12/05/17 of 130. Admission discussed with family and patient and they are agreeable for admission. Vital Signs Temperature 97.8 F 12/14/17 16:35 Pulse Rate 90 12/14/17 16:35 Respiratory Rate 16 12/14/17 16:35 Blood Pressure 193/98 12/14/17 16:35 O2 Sat by Pulse Oximetry 99 12/14/17 16:35 Temperature 97.8 F 12/14/17 16:35 Pulse Rate 90 12/14/17 16:35 Respiratory Rate 16 12/14/17 16:35 Blood Pressure 193/98 12/14/17 16:35 O2 Sat by Pulse Oximetry 99 12/14/17 16:35 Oxygen Delivery Oxygen Delivery Room Air Recheck wound or abnormal lab - MDM Narrative Medical decision making narrative: 82 year old female sent from SNF with hyponatremia possibly related to decreased oral intake. Vitals and labs otherwise at baseline. Patient and family agreeable for admission at this point. Discussed with hospitalist, Dr. Gillespie, agree for admission. - Lab Data Result diagrams: 12/14/17 17:45 12/14/17 16:52 Lab Results 12/14/17 12/14/17 12/14/17 Range/Units 14:52 16:52 16:52 WBC (4.3-11.1) K/mcL RBC (3.82-4.97) M/mcL Hgb (11.5-15.4) g/dL Hct (35.3-44.9) % MCV (83.0-100.0) fL MCH (28.0-33.3) pg MCHC (31.6-35.5) g/dL RDW (11.5-14.5) % Plt Count (140-400) K/mcL MPV (9.4-12.4) fL Immature Gran % (0-4) % Seg Neutrophils % % Lymphocytes % % Monocytes % % Eosinophils % % Basophils % % Neutrophils # (1.6-8.9) K/mcL Lymphocytes # (0.6-4.6) K/mcL Monocytes # (0.0-1.3) K/mcL Eosinophils # (0.0-0.6) K/mcL Basophils # (0.0-0.2) K/mcL Sodium 120 L* (136-145) mEq/L Potassium 4.2 (3.5-5.1) mEq/L Chloride 88 L (98-107) mEq/L Carbon Dioxide 25 (23-29) mEq/L BUN 23 (8-23) mg/dL Creatinine 0.89 (0.60-1.20) mg/dL Est GFR ( Amer) > 60 (> 60) Est GFR (Non-Af Amer) > 60 (> 60) BUN/Creatinine Ratio 26 (6-26) Glucose 110 H (70-105) mg/dL Calculated Osmolality 254 L (280-300) Calcium 9.5 (8.6-10.3) mg/dL Troponin I 0.05 H* (< 0.04) ng/mL B-Natriuretic Peptide 84 (Less than 100) pg/mL Urine Color (Yellow) Urine Clarity (Clear) Urine pH (5.0-8.0) pH Units Ur Specific [place] (1.010-1.025) Urine Protein (Neg-Trace) mg/dL Urine Glucose (UA) (Normal) mg/dL Urine Ketones (Negative) mg/dL Urine Blood (Negative) Urine Nitrite (Negative) Urine Bilirubin (Negative) Urine Urobilinogen (Normal) mg/dL Ur Leukocyte Esterase (Negative) Urine Microscopic RBC (0-3) per hpf Urine Microscopic WBC (0-3) per hpf Ur Squamous Epith Cells (None-Few) per lpf Urine Bacteria (None-Few) per hpf Hyaline Casts (None-Few) per lpf Urine Yeast Ur Culture Indicated? (NO) Specimen Rejected 12/14/17 12/14/17 12/14/17 Range/Units 16:52 17:22 17:45 WBC 9.6 (4.3-11.1) K/mcL RBC 3.21 L (3.82-4.97) M/mcL Hgb 10.5 L (11.5-15.4) g/dL Hct 30.9 L (35.3-44.9) % MCV 96.3 (83.0-100.0) fL MCH 32.7 (28.0-33.3) pg MCHC 34.0 (31.6-35.5) g/dL RDW 12.6 (11.5-14.5) % Plt Count 349 (140-400) K/mcL MPV 8.2 L (9.4-12.4) fL Immature Gran % 0.6 (0-4) % Seg Neutrophils % 75.6 % Lymphocytes % 13.3 % Monocytes % 9.8 % Eosinophils % 0.5 % Basophils % 0.2 % Neutrophils # 7.2 (1.6-8.9) K/mcL Lymphocytes # 1.3 (0.6-4.6) K/mcL Monocytes # 0.9 (0.0-1.3) K/mcL Eosinophils # 0.1 (0.0-0.6) K/mcL Basophils # 0.0 (0.0-0.2) K/mcL Sodium (136-145) mEq/L Potassium (3.5-5.1) mEq/L Chloride (98-107) mEq/L Carbon Dioxide (23-29) mEq/L BUN (8-23) mg/dL Creatinine (0.60-1.20) mg/dL Est GFR ( Amer) (> 60) Est GFR (Non-Af Amer) (> 60) BUN/Creatinine Ratio (6-26) Glucose (70-105) mg/dL Calculated Osmolality (280-300) Calcium (8.6-10.3) mg/dL Troponin I (< 0.04) ng/mL B-Natriuretic Peptide (Less than 100) pg/mL Urine Color Yellow (Yellow) Urine Clarity Cloudy A (Clear) Urine pH 6.0 (5.0-8.0) pH Units Ur Specific [place] 1.019 (1.010-1.025) Urine Protein 30 H (Neg-Trace) mg/dL Urine Glucose (UA) Normal (Normal) mg/dL Urine Ketones Negative (Negative) mg/dL Urine Blood Trace H (Negative) Urine Nitrite Negative (Negative) Urine Bilirubin Negative (Negative) Urine Urobilinogen Normal (Normal) mg/dL Ur Leukocyte Esterase Large H (Negative) Urine Microscopic RBC 3-5 H (0-3) per hpf Urine Microscopic WBC 50-100 H (0-3) per hpf Ur Squamous Epith Cells Many H (None-Few) per lpf Urine Bacteria Few (None-Few) per hpf Hyaline Casts None Seen (None-Few) per lpf Urine Yeast Test Not Performed Ur Culture Indicated? NO. (NO) Specimen Rejected Clerical Err - EKG Data EKG shows normal: sinus rhythm Rate: normal Rhythm: NSR Interpretation: no acute changes Attestation Statement - Attestation Attestation: I, Adriel Henson DO, examined this patient [id number] and my medical decision-making was reviewed with Antoni Mccarthy PGY -1, Resident Physician. I agree with the documented findings, disposition and treatment plan as described except to the extent set forth below. Please see my progress notes for details. 82-year-old female presents to the emergency room from a nursing facility for evaluation of hyponatremia. Patient denies any other symptoms except for that she was told to come to the emergency room for evaluation. Physical exam is relatively unremarkable. Patient is alert she speaks in full sentences. Patient does not appear to have any traumatic related injuries. She is currently denying chest pain shortness of breath headache vision changes nausea vomiting or diarrhea. Patient otherwise is resting comfortable in the bed. Physical exam is unremarkable. See detailed documentation of the physical exam , medical intervention, medical decision-making and disposition of the resident physician's note. Disposition will be determined once her workup is established. Patient's labs are reviewed and does show intermittently chronic hyponatremia but nothing ever this low. Patient will have definitive management established during this treatment course [id number] Patient found to have an elevated troponin which appears to be downtrending from previous. Her sodium is 120 here today. Otherwise has no other acute pathology noted during the treatment course. Patient will be admitted for symptomatic evaluation and stabilization of the sodium. Patient is stable family was informed. Admission passes completed. No clinical keratitis patient 's treatment course at this time. See detailed documentation.
[2017-12-14 17:27] LABS: BUN/Creatinine Ratio 26 (6-26); Blood Urea Nitrogen 23 mg/dL (8-23); Calcium 9.5 mg/dL (8.6-10.3); Carbon Dioxide 25 mEq/L (23-29); Chloride 88 mEq/L (98-107); Glucose 110 mg/dL (70-105); Osmolality,Calculated 254 (280-300); Potassium 4.2 mEq/L (3.5-5.1); eGFR For African Americans > 60 (> 60); eGFR For Non-African Americans > 60 (> 60)
[2017-12-14 17:34] LABS: Bilirubin,Urine Negative (Negative); Blood,Urine Trace (Negative); Clarity,Urine Cloudy (Clear); Color,Urine Yellow (Yellow); Glucose,Urine (UA) Normal (Normal); Ketones,Urine Negative (Negative); Leukocyte Esterase,Urine Large (Negative); Nitrite,Urine Negative (Negative); Protein,Urine 30 mg/dL (Neg-Trace); Specific Gravity,Urine 1.019 (1.010-1.025); Urobilinogen,Urine Normal (Normal)
[2017-12-14 17:36] LABS: Hyaline Casts,Urine None Seen per lpf (None-Few); Squamous Epithelial Cell,Urine Many per lpf (None-Few); WBC,Urine 50-100 per hpf (0-3)
[2017-12-14 17:51] LABS: Basophils % 0.2 %; Eosinophils # 0.1 K/mcL (0.0-0.6); Eosinophils % 0.5 %; Hematocrit 30.9 % (35.3-44.9); Hemoglobin 10.5 g/dL (11.5-15.4); Immature Granulocytes % 0.6 % (0-4); Lymphocytes # 1.3 K/mcL (0.6-4.6); Lymphocytes % 13.3 %; Mean Corpuscular Hemoglobin 32.7 pg (28.0-33.3); Mean Corpuscular Volume 96.3 fL (83.0-100.0); Mean Platelet Volume 8.2 fL (9.4-12.4); Monocytes # 0.9 K/mcL (0.0-1.3); Monocytes % 9.8 %; Neutrophils # 7.2 K/mcL (1.6-8.9); Platelet Count 349 K/mcL (140-400); Red Blood Count 3.21 M/mcL (3.82-4.97); Red Cell Distribution Width 12.6 % (11.5-14.5); Segmented Neutrophils % 75.6 %
[2017-12-14 18:03] LABS: Bacteria,Urine Few per hpf (None-Few)
[2017-12-14 18:53] LABS: Sodium 120 mEq/L (136-145)
[2017-12-14] MEDS ORDERED: Mag Hydrox/Al Hydrox/Simeth 30 ML UDC PO PRN (20:57)
[2017-12-14] MEDS ORDERED: *HR* Promethazine 25 MG/ML VIAL IVP PRN (20:57)
[2017-12-14] MEDS ORDERED: Acetaminophen 325 MG TABLET PO PRN (20:57)
[2017-12-14] MEDS ORDERED: Ondansetron 4 MG/2 ML VIAL IVP PRN (20:57)
[2017-12-14] MEDS ORDERED: Naloxone 0.4 MG/ML INJ IVP PRN (20:57)
[2017-12-14] MEDS ORDERED: Benzonatate 100 MG CAPSULE PO PRN (21:02)
[2017-12-14 21:57] LABS: BUN/Creatinine Ratio 25 (6-26); Blood Urea Nitrogen 21 mg/dL (8-23); Calcium 9.6 mg/dL (8.6-10.3); Carbon Dioxide 24 mEq/L (23-29); Chloride 89 mEq/L (98-107); Glucose 105 mg/dL (70-105); Magnesium 1.8 mg/dL (1.6-2.6); Osmolality,Calculated 255 (280-300); Potassium 4.1 mEq/L (3.5-5.1); Sodium 121 mEq/L (136-145); eGFR For African Americans > 60 (> 60); eGFR For Non-African Americans > 60 (> 60)
[2017-12-14] MEDS ORDERED: 0.9 % Sodium Chloride 250 ML IVC ONE ×2 (22:39→23:52)
[2017-12-14] MEDS: 0.9 % Sodium Chloride 1,000 ML IVC SCH (23:39)
[2017-12-14] MEDS ORDERED: 0.9 % Sodium Chloride 500 ML IVC ONE (23:52)
--- NOTE | 2017-12-15 01:25 | Internal Med History&Physical ---
Date of Encounter: 12/14/17 Time of Encounter: 22:00 Assessment and Plan (1) Hyponatremia Current visit: Yes Status: Acute Will admit the pt into Tele her hyponatremia mostly due to hypovolemia / dehdyration / Poor PO intake will start her on Gentle IV hydration NS @ 100cc/hr since she is slightly oliguric m will give 500cc bolus x 2hrs now strict I & O Serial Na checks Out goal of corrections N 0.5meq/hr not more than 8-10mmeq/24hrs will consult Nephro in AM Talked to son at bed side and explained about current care she is a high risk pt, need close monitoring of labs (2) Elevated troponin Current visit: No Status: Acute due to demand ischemia no CP No acute EKG changes trend on Trop no further work needed reviewed 2D Echo from 11/19 showed Preserved LVEF (3) Hypertensive urgency Current visit: No Status: Acute Due to back pain cont PO and IV analgesics PRN Resumed home PO BP meds will give hdyralazine IV PRN (4) Shingles Current visit: No Status: Acute severe shingles still has open ulcer over Rt upper back does not look superinfected cont local wound care Qualifiers: Herpes zoster complications: without complications Qualified Code(s): B02.9 - Zoster without complications (5) Closed T5 fracture Current visit: No Status: Acute Qualifiers: Encounter type: subsequent encounter Fracture morphology: wedge compression Fracture healing: with routine healing Qualified Code(s): S22.050D - Wedge compression fracture of T5-T6 vertebra, subsequent encounter for fracture with routine healing (6) Weakness Current visit: No Status: Acute PT / OT eval (7) Protein-calorie malnutrition, moderate Current visit: Yes Status: Acute check prealbumin level 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 Rolle is a 82 year old female with known HTN, HLD, Seizure, who recently developed severe shingles on her Rt upper back and Rt breast area finished full course of Valcyclovir, now she was brought into ER from SNF after have routine labs drawn showing Na of 121. She was recently admitted to this facility from to 12/05/17 with AMS, at that time she has hyponatremia low @ 125, her HCTZ was stopped during that hospitlaization. Pt states she is not eating and drinking well from last few days. She does look weak and lethargic. Pt's son at bed side, I did talk to him and explained to him about current care. She also reports she has noticed some bilateral lower extremity swelling. She denied any N/V/ Diarrhea. She does have some constipation. Past Med Surg Social Fam HX - Past Medical History Medical history: hypertension, renal disease, seizures Psychiatric history: anxiety, depression - Past Surgical History Surgical History: appendectomy - Social History Smoking Status: Never smoker Smokeless Tobacco Status: No Alcohol use: none Drug use: none - Family History Mother Living Status: Hx Family Cancer: Yes (breast cancer) Father Living Status: Hx Family Cardiac Disorders: Yes Hx Family Neuromuscular Disorders: Yes (CVA) Internal Medicine - H&P: Meds Loratadine [Claritin] 10 mg PO DAILY 10/12/16 [History] Pantoprazole Sodium [Protonix] 40 mg PO DAILY 10/12/16 [History] Aspirin 81 mg PO DAILY 12/01/16 [History] Calcium Carbonate/Vitamin D3 [Calcium 500-Vit D3 200 Caplet] 1 each PO DAILY [History] Multivitamin [Multi-Day Vitamins] 1 each PO DAILY 12/01/16 [History] Losartan Potassium [Cozaar] 50 mg PO BID #60 tab 12/03/16 [Rx] Pravastatin Sodium [Pravachol] 20 mg PO HS #30 tablet 12/03/16 [Rx] Metoprolol [Lopressor] 25 mg PO BID 11/04/17 [History] Melatonin 3 mg PO HS tablet 11/09/17 [Rx] Benzonatate 100 mg PO DAILY PRN 12/02/17 [History] Guaifenesin [Mucinex] 600 mg PO BID PRN 12/02/17 [History] Lactobacillus Acidophilus [Acidophilus] 1 tab PO BID 12/02/17 [History] ALPRAZolam [Xanax 0.5 MG Tablet] 0.5 mg PO BID PRN 1 Days #2 tablet 12/05/17 [Rx ] Calcium Carbonate [Tums] 1,000 mg PO TID tab.chew 12/05/17 [Rx] Mupirocin [Bactroban Oint] 1 appl TP BID tube 12/05/17 [Rx] 3 Allergy/AdvReac Type Severity Reaction Status Date / Time aspirin AdvReac See Verified 12/02/17 10:14 Comments All Systems PM: A 10-system review of systems was performed and is negative for pertinent findings except as documented above in the HPI. Review of systems: All the systems are reviewed everything is benign except the systems and symptoms I mentioned in the history of present illness - Constitutional Vitals: Temp Pulse Resp BP Pulse Ox 98.2 F 95 16 188/102 97 12/14/17 23:56 12/14/17 23:56 12/14/17 23:56 12/14/17 23:56 12/14/17 23:56 General appearance: Present: cooperative, A&O X 3, answers questions appropriately Exam: Looks very weak and lethargic - Head Head exam: Present: atraumatic, normal inspection - Neck Neck exam general surgery: Present: supple - Respiratory Respiratory exam: Present: decreased breath sounds. Absent: rales, respiratory distress, rhonchi, wheezes - Cardiovascular Cardiovascular exam: Present: RRR, +S1, +S2. Absent: tachycardia - GI/Abdominal GI/Abdominal exam: Present: normal bowel sounds, soft. Absent: rebound, rigid, tenderness - Extremities Exam Extremities exam: Present: pedal edema (++ pitting edema). Absent: calf tenderness, tenderness - Back Exam Back exam: Absent: CVA tenderness (L), CVA tenderness (R) - Neurological Exam Neurological exam: Present: alert, oriented X3, reflexes normal - Psychiatric Psychiatric exam: Present: normal affect, normal mood - Skin Skin exam: Present: erythema (Rt upper back and Rt breast area..), rash ( Noticed larghe area of ulcer over Rt upper back with some weeping from recent shingles rash..) Additional comments: Shingles over Rt breast seems to be improved Internal Med - H&P Results - Labs CBC & Chem 7: 12/14/17 17:45 12/14/17 21:17 Labs: BMP 12/14/17 21:17 Sodium 121 L Potassium 4.1 Chloride 89 L Carbon Dioxide 24 BUN 21 Creatinine 0.83 Glucose 105 Calcium 9.6
[2017-12-15 01:51] LABS: Basophils % 0.1 %; Eosinophils % 0.4 %; Hematocrit 30.5 % (35.3-44.9); Hemoglobin 10.2 g/dL (11.5-15.4); Immature Granulocytes % 0.9 % (0-4); Lymphocytes # 1.3 K/mcL (0.6-4.6); Lymphocytes % 11.9 %; Mean Corpuscular HGB Conc 33.4 g/dL (31.6-35.5); Mean Corpuscular Hemoglobin 31.9 pg (28.0-33.3); Mean Corpuscular Volume 95.3 fL (83.0-100.0); Mean Platelet Volume 8.3 fL (9.4-12.4); Monocytes # 1.1 K/mcL (0.0-1.3); Monocytes % 10.1 %; Neutrophils # 8.1 K/mcL (1.6-8.9); Platelet Count 317 K/mcL (140-400); Red Cell Distribution Width 12.6 % (11.5-14.5); Segmented Neutrophils % 76.6 %
[2017-12-15 02:13] LABS: BUN/Creatinine Ratio 24 (6-26); Blood Urea Nitrogen 19 mg/dL (8-23); Calcium 9.2 mg/dL (8.6-10.3); Carbon Dioxide 26 mEq/L (23-29); Chloride 93 mEq/L (98-107); Chol/HDL Ratio 1.6 (0-4.9); Cholesterol 118 mg/dL (< 200); Glucose 101 mg/dL (70-105); HDL Cholesterol 73 mg/dL (40-59); LDL Cholesterol,Calculated 36 mg/dL (0-99); Magnesium 1.7 mg/dL (1.6-2.6); Osmolality,Calculated 260 (280-300); Potassium 4.2 mEq/L (3.5-5.1); Sodium 124 mEq/L (136-145); Triglycerides 47 mg/dL (< 150); eGFR For African Americans > 60 (> 60); eGFR For Non-African Americans > 60 (> 60)
[2017-12-15] MEDS: *HR* Enoxaparin 40 MG/0.4 ML SYRINGE SQ SCH (04:32)
[2017-12-15] MEDS: 0.9 % Sodium Chloride 1,000 ML IVC SCH (08:38)
[2017-12-15] MEDS: Loratadine 10 MG TABLET PO SCH (08:40)
[2017-12-15] MEDS: Lactobacillus 1 EACH CAP.SPRINK PO SCH ×2 (08:40→20:45)
[2017-12-15] MEDS: Multivit/Ca/Min/Fe/FA 1 TAB TABLET PO SCH (08:40)
[2017-12-15] MEDS: Aspirin 81 MG TAB.CHEW PO SCH (08:40)
[2017-12-15] MEDS: *HR* HYDROcodone/Acet 5/325 mg TABLET PO PRN (14:33)
--- NOTE | 2017-12-15 16:36 | Nephrology Consult Note ---
Date of Encounter: 12/15/17 Time of Encounter: 12:25 Assessment and Plan (1) Hyponatremia Current Visit: Yes Status: Acute Acute on chronic. Trending better. Would stop the IVF since she is correcting rather well and to avoid over correcting. Agree with remaining of the HCTZ, and will have her start a 2L fluid restriction. TSH, Fasting Cortisol were checked a few weeks ago and were WNL. Cont the NaCl 1gm po tid. Discussed with the floor RN and the pt's [id number]. Thank you for consulting the [facility]. Will follow you. (2) Anemia Current Visit: Yes Status: Acute Will check iron studies. Qualifiers: Anemia type: unspecified type Qualified Code(s): D64.9 - Anemia, unspecified (3) Protein-calorie malnutrition, moderate Current Visit: Yes Status: Acute Agree with Protein shakes. (4) Essential hypertension Current Visit: No Status: Chronic Should cont to avoid the HCTZ. Cont the ARB and prn Hydralazine for now. History of Present Illness - Reason for Consult Consult date: 12/15/17 hyponatremia Requesting physician: Ildefonso Fournier - Chief Complaint Hyponatremia - History of Present Illness Chloe Rolle is a very pleasant 82 y/o lady with a PMH of HTN, HLD, seizure disorder, shingles, chronic hyponatremia and et al who presented with the findings of hyponatremia. She was brought to the ED from [facility] after lab results showed Na 121. She was recently admitted to [facility] from 12/01- 12/05 with AMS secondary to hyponatremia. HCTZ and opiate pain medications were discontinued at this time. 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 Currently she admits to feeling weak and fatigued and has noticed some LE edema that occurred over the past week. Edema likely due to dc of HCTZ. She also reports having a decreased appetite and congestion with a stuffy nose and MERRITT for 1wk duration. She has been taking mucinex once daily for symptom management. Denies N/V/D, F/C, CP or ADAMA. The floor RN and the pt's daughter-in- law were present during my interview and exam. (I personally reviewed the presentation, exam and notes from the [facility] medical student.) Past Med Surg Social Fam HX - Past Medical History Medical history: hypertension, renal disease, seizures Psychiatric history: anxiety, depression - Past Surgical History Surgical History: appendectomy - Social History Smoking Status: Never smoker Smokeless Tobacco Status: No Alcohol use: none Drug use: none - Family History Mother Living Status: Hx Family Cancer: Yes (breast cancer) Father Living Status: Hx Family Cardiac Disorders: Yes Hx Family Neuromuscular Disorders: Yes (CVA) Medications and Allergies Loratadine [Claritin] 10 mg PO DAILY 10/12/16 [History] Pantoprazole Sodium [Protonix] 40 mg PO DAILY 10/12/16 [History] Aspirin 81 mg PO DAILY 12/01/16 [History] Calcium Carbonate/Vitamin D3 [Calcium 500-Vit D3 200 Caplet] 1 each PO DAILY [History] Multivitamin [Multi-Day Vitamins] 1 each PO DAILY 12/01/16 [History] Losartan Potassium [Cozaar] 50 mg PO BID #60 tab 12/03/16 [Rx] Pravastatin Sodium [Pravachol] 20 mg PO HS #30 tablet 12/03/16 [Rx] Metoprolol [Lopressor] 25 mg PO BID 11/04/17 [History] Melatonin 3 mg PO HS tablet 11/09/17 [Rx] Benzonatate 100 mg PO DAILY PRN 12/02/17 [History] Guaifenesin [Mucinex] 600 mg PO BID PRN 12/02/17 [History] Lactobacillus Acidophilus [Acidophilus] 1 tab PO BID 12/02/17 [History] ALPRAZolam [Xanax 0.5 MG Tablet] 0.5 mg PO BID PRN 1 Days #2 tablet 12/05/17 [Rx ] Calcium Carbonate [Tums] 1,000 mg PO TID tab.chew 12/05/17 [Rx] Mupirocin [Bactroban Oint] 1 appl TP BID tube 12/05/17 [Rx] 3 Allergy/AdvReac Type Severity Reaction Status Date / Time aspirin AdvReac See Verified 12/02/17 10:14 Comments Review of Systems All Systems: reviewed and no additional remarkable complaints except as stated Exam - Vital Signs Vital signs: Initial Vital Signs Temp Pulse Resp BP Pulse Ox 97.8 F 90 16 193/98 99 12/14/17 16:35 12/14/17 16:35 12/14/17 16:35 12/14/17 16:35 12/14/17 16:35 Vital Signs - Last 8 Hours Temp Pulse Resp BP Pulse Ox 12/15/17 11:47 97.6 F 100 16 155/78 98 12/15/17 09:56 103/65 Intake and Output 12/15/17 12/15/17 12/15/17 07:59 15:59 23:59 Intake Total 250 / 250 1240 / 1240 Output Total 300 / 300 0 / 0 Balance -50 / -50 1240 / 1240 Intake: IV Fluids 250 / 250 1000 / 1000 0.9 % Sodium Chloride 1,000 ML 1000 / 1000 @ 100 mls/hr IVC .Q10H VERÓNICA Rx#: [id number] 0.9 % Sodium Chloride 250 ML @ 250 / 250 250 mls/hr IVC .Q1H ONE Rx#: [id number] Oral 240 / 240 Output: Urine 300 / 300 0 / 0 Other: Meal Lunch Percent of Meal Consumed 100% Stool Size Moderate Stool Consistency soft Stool Color Brown # Bowel Movements 1 Weight 65.3 kg Patient Weight 12/15/17 23:59 Weight 65.3 kg - General Appearance General appearance: well-developed, well-nourished, appears started age, frail EENT: ATNC, PERRL, mucous membranes moist Neck: supple Respiratory: clear Cardiology: holosystolic murmur (greatest in the RUSB), no edema (trace ankle edema b/l), regular rate, regular rhythm, normal S1, normal S2 Gastrointestinal: normoactive bowel sounds, no tenderness Integumentary: warm and dry Neurologic: no focal deficit, no asterixis, alert and oriented x3 Musculoskeletal: no erythema, no cyanosis Psychiatric: mood/affect appropriate, cooperative Results - Lab Results 12/15/17 01:36 12/15/17 14:17 Most recent lab results Calcium 9.2 mg/dL (8.6-10.3) 12/15/17 01:36 Phosphorus 3.0 mg/dL (2.7-4.5) 12/14/17 21:17 Magnesium 1.7 mg/dL (1.6-2.6) 12/15/17 01:36 Urine Sodium 43.6 mEq/L 12/14/17 17:22 I reviewed progress notes, labs, vitals, imaging and med lists. Consult Discharge Plan - Plan Referrals: Megan Castro DO [Primary Care Provider] -
[2017-12-15] MEDS ORDERED: Gabapentin 300 MG CAPSULE PO ONE (17:16)
--- NOTE | 2017-12-15 17:24 | Internal Med Progress Note ---
Date of Encounter: 12/15/17 Time of Encounter: 17:20 - Assessment and plan (1) Hyponatremia Current Visit: Yes Status: Acute Assessment and plan: Will admit the pt into Tele her hyponatremia mostly due to hypovolemia / dehdyration / Poor PO intake strict I & O Serial Na checks Nephrology following, recommendations appreciated. Holding HCTZ Fluid restrict, 2L NaCl 1 gm PO TID (2) Shingles Current Visit: No Status: Acute Assessment and plan: Patient recently completed a course of valcyclovir. Patient likely developing post herpetic neuralgia. Will start low dose gabapentin. One tab 300 mg today. Tomorrow 300 mg BID. Qualifiers: Herpes zoster complications: without complications Qualified Code(s): B02.9 - Zoster without complications (3) Closed T5 fracture Current Visit: No Status: Acute Qualifiers: Encounter type: subsequent encounter Fracture morphology: wedge compression Fracture healing: with routine healing Qualified Code(s): S22.050D - Wedge compression fracture of T5-T6 vertebra, subsequent encounter for fracture with routine healing (4) Elevated troponin Current Visit: No Status: Acute Assessment and plan: Resolved, was likely due to demand ischemia (5) Hypertensive urgency Current Visit: No Status: Acute Assessment and plan: Elevated in the setting of back painshigles pain. Resume BP meds except holding HCTZ, give hydralazine IV prn Symptomatic treatment for pain, currently with [facility]. (6) Essential hypertension Current Visit: No Status: Chronic - Subjective Interval history: No acute events overnight. Patient still having pain from shingles. - Constitutional Vitals: Temp Pulse Resp BP Pulse Ox 99.1 F 94 17 158/80 97 12/15/17 16:25 12/15/17 16:25 12/15/17 16:25 12/15/17 16:25 12/15/17 16:25 General appearance: Present: cooperative, A&O X 3, answers questions appropriately Exam: - Head Head exam: Present: atraumatic, normal inspection - Neck Neck exam general surgery: Present: supple - Respiratory Respiratory exam: Present: decreased breath sounds. Absent: rales, respiratory distress, rhonchi, wheezes - Cardiovascular Cardiovascular exam: Present: RRR, +S1, +S2. Absent: tachycardia - GI/Abdominal GI/Abdominal exam: Present: normal bowel sounds, soft. Absent: rebound, rigid, tenderness - Extremities Exam Extremities exam: Present: pedal edema (++ pitting edema). Absent: calf tenderness, tenderness - Back Exam Back exam: Absent: CVA tenderness (L), CVA tenderness (R) - Neurological Exam Neurological exam: Present: alert, oriented X3, reflexes normal - Psychiatric Psychiatric exam: Present: normal affect, normal mood - Skin Skin exam: Present: erythema (crusted linear lesions on Rt upper back and Rt breast area..) Additional comments: Internal Medicine: Result - Labs CBC & Chem 7: 12/15/17 01:36 12/15/17 14:17 Labs: BMP 12/15/17 12/15/17 08:08 14:17 Sodium 127 L 129 L - VTE Documentation of Mechanical Device: Intermittent pneumatic compression device Consult Discharge Plan - Plan Referrals: Megan Castro DO [Primary Care Provider] -
--- NOTE | 2017-12-15 18:36 | Electrocardiograph Report ---
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
[2017-12-15] MEDS: Melatonin 3 MG TABLET PO SCH (20:45)
[2017-12-16 02:40] LABS: % Iron Saturation 8 % (15-50); Ferritin 173 ng/ml (10-120); Iron 19 mcg/dL (50-170); Transferrin 162 mg/dL (203-362)
[2017-12-16 02:42] LABS: BUN/Creatinine Ratio 29 (6-26); Blood Urea Nitrogen 20 mg/dL (8-23); Calcium 8.7 mg/dL (8.6-10.3); Carbon Dioxide 23 mEq/L (23-29); Chloride 99 mEq/L (98-107); Glucose 105 mg/dL (70-105); Osmolality,Calculated 269 (280-300); Potassium 3.9 mEq/L (3.5-5.1); Sodium 128 mEq/L (136-145); Uric Acid 2.6 mg/dL (2.3-7.6); eGFR For African Americans > 60 (> 60); eGFR For Non-African Americans > 60 (> 60)
[2017-12-16] MEDS: *HR* Enoxaparin 40 MG/0.4 ML SYRINGE SQ SCH (04:10)
[2017-12-16] MEDS: Gabapentin 300 MG CAPSULE PO SCH ×2 (08:36→20:55)
[2017-12-16] MEDS: Lactobacillus 1 EACH CAP.SPRINK PO SCH ×2 (08:36→20:55)
[2017-12-16] MEDS: Loratadine 10 MG TABLET PO SCH (08:36)
[2017-12-16] MEDS: Aspirin 81 MG TAB.CHEW PO SCH (08:36)
[2017-12-16] MEDS: Multivit/Ca/Min/Fe/FA 1 TAB TABLET PO SCH (08:36)
[2017-12-16] MEDS ORDERED: Tolvaptan 15 MG TABLET PO ONE (10:59)
--- NOTE | 2017-12-16 10:59 | Nephrology Progress Note ---
Date of Encounter: 12/16/17 Time of Encounter: 10:00 - Assessment and Plan (1) Hyponatremia Current Visit: Yes Status: Acute Trending better Cont NaCl Pitting edema of the ankles, so will rec Tolvaptan 15mg po x1. Rec on going close PNa monitoring Iron def: rec oral Iron replacement and I d/w her and her grandson the SE profile of the above Rx. HTN: uncontrolled. Rec continuing the ARB and BB but add Hydralazine. I had considered adding a CCB such as amlodipine but this may contribute to or worse the peripheral edema. Will cont to follow with you. Thank you. (2) Anemia Current Visit: Yes Status: Acute Qualifiers: Anemia type: unspecified type Qualified Code(s): D64.9 - Anemia, unspecified (3) Protein-calorie malnutrition, moderate Current Visit: Yes Status: Acute (4) Essential hypertension Current Visit: No Status: Chronic Subjective Principal diagnosis: Hyponatremia Interval history: Pt was s/e and did not affirm N/V/D or uremic symptoms. Objective - Vital Signs Vital signs: Vital Signs Temp Pulse Resp BP Pulse Ox 12/16/17 10:54 97.4 F L 81 16 171/82 98 12/16/17 06:55 97.9 F 82 16 181/95 97 12/16/17 04:14 98.1 F 79 16 161/86 97 12/15/17 23:08 98.3 F 64 16 147/84 97 12/15/17 19:05 98.3 F 97 16 145/80 96 12/15/17 16:25 99.1 F 94 17 158/80 97 12/15/17 11:47 97.6 F 100 16 155/78 98 Intake and Output 12/15/17 12/16/17 12/16/17 23:59 07:59 15:59 Intake Total 840 / 840 800 / 800 50 / 50 Output Total 600 / 600 Balance 840 / 840 800 / 800 -550 / -550 Intake: Oral 840 / 840 800 / 800 50 / 50 Output: Urine 600 / 600 Other: Weight 65.4 kg Patient Weight 12/16/17 23:59 Weight 65.4 kg - General Appearance Exam: General appearance: well-developed, well-nourished, appears started age, frail EENT: ATNC, PERRL, mucous membranes moist Neck: supple Respiratory: clear Cardiology: holosystolic murmur (greatest in the RUSB), no edema (trace ankle edema b/l), regular rate, regular rhythm, normal S1, normal S2 Gastrointestinal: normoactive bowel sounds, no tenderness Integumentary: warm and dry Neurologic: no focal deficit, no asterixis, alert and oriented x3 Musculoskeletal: no erythema, no cyanosis Psychiatric: mood/affect appropriate, cooperative - Lab 12/17/17 04:40 12/17/17 04:40 Most recent lab results Calcium 8.7 mg/dL (8.6-10.3) 12/16/17 01:50 Phosphorus 3.0 mg/dL (2.7-4.5) 12/14/17 21:17 Magnesium 1.7 mg/dL (1.6-2.6) 12/15/17 01:36 Urine Sodium 43.6 mEq/L 12/14/17 17:22 - VTE Documentation of Mechanical Device: Intermittent pneumatic compression device Consult Discharge Plan - Plan Referrals: Megan Castro DO [Primary Care Provider] - (possible ECF)
[2017-12-16] MEDS: *HR* HYDROcodone/Acet 5/325 mg TABLET PO PRN ×2 (15:08→20:55)
[2017-12-16] MEDS: hydrALAZINE 25 MG TABLET PO SCH (15:09)
[2017-12-16] MEDS: Melatonin 3 MG TABLET PO SCH (20:55)
--- NOTE | 2017-12-16 22:03 | Internal Med Progress Note ---
Date of Encounter: 12/16/17 Time of Encounter: 18:04 - Assessment and plan (1) Hyponatremia Current Visit: Yes Status: Acute Assessment and plan: Will admit the pt into Tele her hyponatremia mostly due to hypovolemia / dehdyration / Poor PO intake strict I & O Serial Na checks Nephrology following, recommendations appreciated. Holding HCTZ Fluid restrict, 2L NaCl 1 gm PO TID (2) Shingles Current Visit: No Status: Acute Assessment and plan: Patient recently completed a course of valcyclovir. Patient has post herpetic neuralgia. gabapentin 300 mg BID. Skin appears tender, with linear ulcerated lesion in dermatomal distribution consistent with shingles. does not appear infected. Will consult wound care to see patient. If developes signs or symptoms of superimprosed bacterial infection, with treat with antibiotics. Qualifiers: Herpes zoster complications: without complications Qualified Code(s): B02.9 - Zoster without complications (3) Closed T5 fracture Current Visit: No Status: Acute Qualifiers: Encounter type: subsequent encounter Fracture morphology: wedge compression Fracture healing: with routine healing Qualified Code(s): S22.050D - Wedge compression fracture of T5-T6 vertebra, subsequent encounter for fracture with routine healing (4) Elevated troponin Current Visit: No Status: Acute Assessment and plan: Resolved, was likely due to demand ischemia (5) Hypertensive urgency Current Visit: No Status: Acute Assessment and plan: Elevated in the setting of back pain and shingles pain. Resume BP meds except holding HCTZ, give hydralazine IV prn Symptomatic treatment for pain, currently with [place]. (6) Essential hypertension Current Visit: No Status: Chronic - Subjective Interval history: No acute events overnight. Patient still having pain from shingles. Did well in AM but in afternoon she was fatigued. She was normal by later afternoon per nursing. - Constitutional Vitals: Temp Pulse Resp BP Pulse Ox 98.5 F 106 16 101/45 94 12/16/17 19:15 12/16/17 19:15 12/16/17 19:15 12/16/17 19:15 12/16/17 19:15 General appearance: Present: cooperative, A&O X 3, answers questions appropriately Exam: Skin shows ulcerated lesion in linear dermatomal pattern on her back. There is no purulent discharge. CVS: RRR lungs:CTAB Ext: 1+ bilateral pitting edema, same since yesterday exam. Internal Medicine: Result - Labs CBC & Chem 7: 12/15/17 01:36 12/16/17 08:20 Labs: BMP 12/16/17 12/16/17 01:50 08:20 Sodium 128 L 130 L Potassium 3.9 Chloride 99 Carbon Dioxide 23 BUN 20 Creatinine 0.70 Glucose 105 Calcium 8.7 - VTE Documentation of Mechanical Device: Intermittent pneumatic compression device Consult Discharge Plan - Plan Referrals: Megan Castro DO [Primary Care Provider] - (possible ECF)
[2017-12-17] MEDS: hydrALAZINE 25 MG TABLET PO SCH ×3 (00:03→15:43)
[2017-12-17 05:07] LABS: Basophils % 0.5 %; Eosinophils # 0.1 K/mcL (0.0-0.6); Hematocrit 29.4 % (35.3-44.9); Hemoglobin 9.3 g/dL (11.5-15.4); Immature Granulocytes % 0.6 % (0-4); Lymphocytes # 1.6 K/mcL (0.6-4.6); Lymphocytes % 19.3 %; Mean Corpuscular HGB Conc 31.6 g/dL (31.6-35.5); Mean Corpuscular Hemoglobin 31.8 pg (28.0-33.3); Mean Corpuscular Volume 100.7 fL (83.0-100.0); Mean Platelet Volume 8.4 fL (9.4-12.4); Monocytes # 0.9 K/mcL (0.0-1.3); Neutrophils # 5.7 K/mcL (1.6-8.9); Platelet Count 302 K/mcL (140-400); Red Blood Count 2.92 M/mcL (3.82-4.97); Red Cell Distribution Width 13.5 % (11.5-14.5); Segmented Neutrophils % 67.6 %
[2017-12-17 05:16] LABS: BUN/Creatinine Ratio 22 (6-26); Blood Urea Nitrogen 18 mg/dL (8-23); Calcium 8.8 mg/dL (8.6-10.3); Carbon Dioxide 26 mEq/L (23-29); Chloride 105 mEq/L (98-107); Glucose 98 mg/dL (70-105); Osmolality,Calculated 284 (280-300); Potassium 4.3 mEq/L (3.5-5.1); Sodium 136 mEq/L (136-145); eGFR For African Americans > 60 (> 60); eGFR For Non-African Americans > 60 (> 60)
[2017-12-17] MEDS: *HR* Enoxaparin 40 MG/0.4 ML SYRINGE SQ SCH (06:25)
[2017-12-17] MEDS: *HR* HYDROcodone/Acet 5/325 mg TABLET PO PRN (08:46)
[2017-12-17] MEDS: Aspirin 81 MG TAB.CHEW PO SCH (08:47)
[2017-12-17] MEDS: Loratadine 10 MG TABLET PO SCH (08:47)
[2017-12-17] MEDS: Gabapentin 300 MG CAPSULE PO SCH ×2 (08:47→20:33)
[2017-12-17] MEDS: Multivit/Ca/Min/Fe/FA 1 TAB TABLET PO SCH (08:47)
[2017-12-17] MEDS: Lactobacillus 1 EACH CAP.SPRINK PO SCH ×2 (08:47→20:34)
--- NOTE | 2017-12-17 18:45 | Internal Med Progress Note ---
Date of Encounter: 12/17/17 Time of Encounter: 18:42 - Assessment and plan (1) Hyponatremia Current Visit: Yes Status: Acute Assessment and plan: Will admit the pt into Tele her hyponatremia mostly due to hypovolemia / dehdyration / Poor PO intake strict I & O Serial Na checks Nephrology following, recommendations appreciated. Holding HCTZ Fluid restrict, 2L NaCl 1 gm PO TID (2) Shingles Current Visit: No Status: Acute Assessment and plan: Patient recently completed a course of valcyclovir. Patient has post herpetic neuralgia. gabapentin 300 mg BID. Skin appears tender, with linear ulcerated lesion in dermatomal distribution consistent with shingles. does not appear infected. Will consult wound care to see patient. If developes signs or symptoms of superimprosed bacterial infection, with treat with antibiotics. Qualifiers: Herpes zoster complications: without complications Qualified Code(s): B02.9 - Zoster without complications (3) Closed T5 fracture Current Visit: No Status: Acute Qualifiers: Encounter type: subsequent encounter Fracture morphology: wedge compression Fracture healing: with routine healing Qualified Code(s): S22.050D - Wedge compression fracture of T5-T6 vertebra, subsequent encounter for fracture with routine healing (4) Elevated troponin Current Visit: No Status: Acute Assessment and plan: Resolved, was likely due to demand ischemia (5) Hypertensive urgency Current Visit: No Status: Resolved Assessment and plan: Elevated in the setting of back pain and shingles pain. Resume BP meds except holding HCTZ, give hydralazine IV prn Symptomatic treatment for pain, currently with [facility]. (6) Essential hypertension Current Visit: No Status: Chronic Assessment and plan: Hydralazine 25 mg PO Q8H scheduled Losartan 50 mg BID Toprol 25 mg BID - Subjective Interval history: No acute events overnight. Patient still having pain from shingles. Described more as dull pain along her flank where lesion was. - Constitutional Vitals: Temp Pulse Resp BP Pulse Ox 97.4 F L 88 12 144/78 95 12/17/17 15:44 12/17/17 15:44 12/17/17 15:44 12/17/17 15:44 12/17/17 15:44 General appearance: Present: cooperative, A&O X 3, answers questions appropriately Exam: Skin shows ulcerated lesion in linear dermatomal pattern on her back. There is no purulent discharge. CVS: RRR lungs:CTAB Ext: 1+ bilateral pitting edema Internal Medicine: Result - Labs CBC & Chem 7: 12/17/17 04:40 12/17/17 04:40 Labs: Short CBC 12/17/17 Range/Units 04:40 WBC 8.4 (4.3-11.1) K/mcL Hgb 9.3 L (11.5-15.4) g/dL Hct 29.4 L (35.3-44.9) % Plt Count 302 (140-400) K/mcL Neutrophils # 5.7 (1.6-8.9) K/mcL BMP 12/17/17 04:40 Sodium 136 Potassium 4.3 Chloride 105 Carbon Dioxide 26 BUN 18 Creatinine 0.83 Glucose 98 Calcium 8.8 - VTE Documentation of Mechanical Device: Intermittent pneumatic compression device Consult Discharge Plan - Plan Referrals: Megan Castro DO [Primary Care Provider] - (possible ECF)
[2017-12-17] MEDS: Melatonin 3 MG TABLET PO SCH (20:34)
--- NOTE | 2017-12-17 21:11 | Nephrology Progress Note ---
Date of Encounter: 12/17/17 Time of Encounter: 17:30 - Assessment and Plan (1) Hyponatremia Current Visit: Yes Status: Acute Trending better Cont NaCl Edema improving. Iron def: rec oral Iron replacement HTN: uncontrolled. Rec continuing the ARB and BB but added Hydralazine yesterday , so this may need to be titrated further soon. I had considered adding a CCB such as amlodipine but this may contribute to or worse the peripheral edema. Will cont to follow with you. Thank you. (2) Anemia Current Visit: Yes Status: Acute Qualifiers: Anemia type: unspecified type Qualified Code(s): D64.9 - Anemia, unspecified (3) Protein-calorie malnutrition, moderate Current Visit: Yes Status: Acute (4) Essential hypertension Current Visit: No Status: Chronic Subjective Principal diagnosis: Hyponatremia Interval history: Pt was s/e and did not affirm N/V/D or uremic symptoms. Objective - Vital Signs Vital signs: Vital Signs Temp Pulse Resp BP Pulse Ox 12/17/17 20:27 99.0 F 106 18 146/78 92 12/17/17 15:44 97.4 F L 88 12 144/78 95 12/17/17 11:02 98.2 F 78 14 126/72 95 12/17/17 08:41 97.9 F 82 14 159/84 94 12/17/17 04:50 98.9 F 84 16 158/83 96 12/16/17 23:16 98.7 F 89 16 120/75 94 Intake and Output 12/17/17 12/17/17 12/17/17 07:59 15:59 23:59 Intake Total 240 / 240 840 / 840 Output Total 700 / 700 300 / 300 300 / 300 Balance -700 / -700 -60 / -60 540 / 540 Intake: Oral 240 / 240 840 / 840 Output: Urine 700 / 700 300 / 300 300 / 300 Other: Meal Breakfast Dinner Percent of Meal Consumed 25% 75% Weight 65.828 kg Patient Weight 12/17/17 23:59 Weight 65.828 kg - General Appearance Exam: General appearance: well-developed, well-nourished, appears started age, frail EENT: ATNC, PERRL, mucous membranes moist Neck: supple Respiratory: clear Cardiology: holosystolic murmur (greatest in the RUSB), no edema (trace ankle edema b/l), regular rate, regular rhythm, normal S1, normal S2 Gastrointestinal: normoactive bowel sounds, no tenderness Integumentary: warm and dry Neurologic: no focal deficit, no asterixis, alert and oriented x3 Musculoskeletal: no erythema, no cyanosis Psychiatric: mood/affect appropriate, cooperative - Lab 12/17/17 04:40 12/18/17 06:31 Most recent lab results Calcium 8.8 mg/dL (8.6-10.3) 12/17/17 04:40 Phosphorus 3.0 mg/dL (2.7-4.5) 12/14/17 21:17 Magnesium 1.7 mg/dL (1.6-2.6) 12/15/17 01:36 Urine Sodium 43.6 mEq/L 12/14/17 17:22 - VTE Documentation of Mechanical Device: Intermittent pneumatic compression device Consult Discharge Plan - Plan Referrals: Megan Castro DO [Primary Care Provider] - (possible ECF)
[2017-12-18] MEDS: hydrALAZINE 25 MG TABLET PO SCH ×3 (00:51→15:06)
[2017-12-18] MEDS: *HR* Enoxaparin 40 MG/0.4 ML SYRINGE SQ SCH (05:13)
[2017-12-18 06:54] LABS: BUN/Creatinine Ratio 27 (6-26); Blood Urea Nitrogen 20 mg/dL (8-23); Calcium 8.7 mg/dL (8.6-10.3); Carbon Dioxide 27 mEq/L (23-29); Chloride 102 mEq/L (98-107); Glucose 102 mg/dL (70-105); Osmolality,Calculated 281 (280-300); Potassium 4.1 mEq/L (3.5-5.1); Sodium 134 mEq/L (136-145); eGFR For African Americans > 60 (> 60); eGFR For Non-African Americans > 60 (> 60)
[2017-12-18] MEDS: Aspirin 81 MG TAB.CHEW PO SCH (09:14)
[2017-12-18] MEDS: Lactobacillus 1 EACH CAP.SPRINK PO SCH ×2 (09:14→20:52)
[2017-12-18] MEDS: Gabapentin 300 MG CAPSULE PO SCH ×2 (09:14→20:52)
[2017-12-18] MEDS: Loratadine 10 MG TABLET PO SCH (09:14)
[2017-12-18] MEDS: Multivit/Ca/Min/Fe/FA 1 TAB TABLET PO SCH (09:14)
--- NOTE | 2017-12-18 12:11 | Nephrology Progress Note ---
Date of Encounter: 12/18/17 Time of Encounter: 12:00 - Assessment and Plan (1) Hyponatremia Current Visit: Yes Status: Acute Sodium noted at 134 a slight drop from 136 yesterday s/p tolvaptan Continue salt tabs Continue fluid restriction Encouraged salt packets use with her meals (2) Anemia Current Visit: Yes Status: Acute Hgb noted at 9.3 with iron deficiency, continue supplements Qualifiers: Anemia type: unspecified type Qualified Code(s): D64.9 - Anemia, unspecified (3) Essential hypertension Current Visit: No Status: Chronic BP readings improving, continue current regimen Subjective Principal diagnosis: Hyponatremia Interval history: Interim events noted, pt seen and examined with family at bedside. Pt is not apparently using salt packets given with meals, encouraged to use Objective - Vital Signs Vital signs: Vital Signs Temp Pulse Resp BP Pulse Ox 12/18/17 11:45 98.3 F 84 18 128/76 95 12/18/17 08:41 97.8 F 69 18 156/81 94 12/18/17 04:49 98.3 F 84 18 153/82 95 12/18/17 00:55 98.6 F 81 149/84 95 12/17/17 20:27 99.0 F 106 18 146/78 92 12/17/17 15:44 97.4 F L 88 12 144/78 95 Intake and Output 12/17/17 12/18/17 12/18/17 23:59 07:59 15:59 Intake Total 840 / 840 75 / 75 Output Total 300 / 300 550 / 550 0 / 0 Balance 540 / 540 -550 / -550 75 / 75 Intake: Oral 840 / 840 75 / 75 Output: Urine 300 / 300 550 / 550 0 / 0 Other: Meal Dinner Percent of Meal Consumed 75% Weight 66 kg Patient Weight 12/18/17 23:59 Weight 66 kg - General Appearance General appearance: Present: frail Exam: NAD EENT: Present: ATNC, mucous membranes moist Neck: Present: no JVD, supple Respiratory: Present: clear (ant bilat) Cardiology: Present: no edema, normal S1, normal S2 Gastrointestinal: Present: no tenderness Integumentary: Present: warm and dry Neurologic: Present: no focal deficit Musculoskeletal: Present: no deformities Psychiatric: Present: mood/affect appropriate, cooperative - Lab 12/20/17 04:56 12/20/17 04:56 Most recent lab results Calcium 8.7 mg/dL (8.6-10.3) 12/18/17 06:31 Phosphorus 3.0 mg/dL (2.7-4.5) 12/14/17 21:17 Magnesium 1.7 mg/dL (1.6-2.6) 12/15/17 01:36 Urine Sodium 43.6 mEq/L 12/14/17 17:22 - VTE Documentation of Mechanical Device: Intermittent pneumatic compression device Consult Discharge Plan - Plan Referrals: Megan Castro DO [Primary Care Provider] - (possible ECF)
--- NOTE | 2017-12-18 15:46 | Internal Med Progress Note ---
Date of Encounter: 12/18/17 Time of Encounter: 15:35 - Assessment and plan (1) Hyponatremia Current Visit: Yes Status: Acute Assessment and plan: Will admit the pt into Tele her hyponatremia mostly due to hypovolemia / dehdyration / Poor PO intake Discontinue HCTZ strict I & O Nephrology following, recommendations appreciated. Fluid restrict, 2L NaCl 1 gm PO TID Slight decrease today to 134. (2) Shingles Current Visit: No Status: Acute Assessment and plan: Patient recently completed a course of valcyclovir. Patient has post herpetic neuralgia. Skin appears tender, with linear ulcerated lesion in dermatomal distribution consistent with shingles. does not appear infected. Will consult wound care to see patient. If developes signs or symptoms of superimprosed bacterial infection, with treat with antibiotics. Gabapentin 300 mg BID. Qualifiers: Herpes zoster complications: without complications Qualified Code(s): B02.9 - Zoster without complications (3) Closed T5 fracture Current Visit: No Status: Acute Qualifiers: Encounter type: subsequent encounter Fracture morphology: wedge compression Fracture healing: with routine healing Qualified Code(s): S22.050D - Wedge compression fracture of T5-T6 vertebra, subsequent encounter for fracture with routine healing (4) Elevated troponin Current Visit: No Status: Acute Assessment and plan: Resolved, was likely due to demand ischemia (5) Essential hypertension Current Visit: No Status: Chronic Assessment and plan: Hydralazine 25 mg PO Q8H scheduled Losartan 50 mg BID Toprol 25 mg BID - Subjective Interval history: No acute events overnight. Patient still having pain from shingles. Described more as dull pain along her flank where lesion was. - Constitutional Vitals: Temp Pulse Resp BP Pulse Ox 98.3 F 84 18 128/76 95 12/18/17 11:45 12/18/17 11:45 12/18/17 11:45 12/18/17 11:45 12/18/17 11:45 General appearance: Present: cooperative, A&O X 3, answers questions appropriately Internal Medicine: Result - Labs CBC & Chem 7: 12/17/17 04:40 12/18/17 06:31 Labs: BMP 12/18/17 06:31 Sodium 134 L Potassium 4.1 Chloride 102 Carbon Dioxide 27 BUN 20 Creatinine 0.74 Glucose 102 Calcium 8.7 - VTE Documentation of Mechanical Device: Intermittent pneumatic compression device Consult Discharge Plan - Plan Referrals: Megan Castro DO [Primary Care Provider] - (possible ECF)
[2017-12-18] MEDS: Melatonin 3 MG TABLET PO SCH (20:52)
[2017-12-19] MEDS: hydrALAZINE 25 MG TABLET PO SCH ×3 (00:14→17:58)
[2017-12-19 05:56] LABS: BUN/Creatinine Ratio 29 (6-26); Blood Urea Nitrogen 24 mg/dL (8-23); Calcium 8.8 mg/dL (8.6-10.3); Carbon Dioxide 27 mEq/L (23-29); Chloride 102 mEq/L (98-107); Glucose 107 mg/dL (70-105); Osmolality,Calculated 283 (280-300); Potassium 4.2 mEq/L (3.5-5.1); Sodium 134 mEq/L (136-145); eGFR For African Americans > 60 (> 60); eGFR For Non-African Americans > 60 (> 60)
[2017-12-19] MEDS: *HR* Enoxaparin 40 MG/0.4 ML SYRINGE SQ SCH (06:02)
[2017-12-19] MEDS: Loratadine 10 MG TABLET PO SCH (08:02)
[2017-12-19] MEDS: Multivit/Ca/Min/Fe/FA 1 TAB TABLET PO SCH (08:02)
[2017-12-19] MEDS: Aspirin 81 MG TAB.CHEW PO SCH (08:03)
[2017-12-19] MEDS: Gabapentin 300 MG CAPSULE PO SCH ×2 (08:03→22:34)
[2017-12-19] MEDS: Lactobacillus 1 EACH CAP.SPRINK PO SCH ×2 (08:03→22:34)
--- NOTE | 2017-12-19 09:04 | Internal Med Progress Note ---
Date of Encounter: 12/19/17 Time of Encounter: 09:02 - Assessment and plan (1) Hyponatremia Current Visit: Yes Status: Acute Assessment and plan: Will admit the pt into Tele her hyponatremia mostly due to hypovolemia / dehdyration / Poor PO intake Discontinue HCTZ strict I & O Nephrology following, recommendations appreciated. Fluid restrict, 2L NaCl 1 gm PO TID Sodium wnl on 12/17, has been 134 since then (2) Shingles Current Visit: No Status: Acute Assessment and plan: Patient recently completed a course of valcyclovir. Patient has post herpetic neuralgia. Skin appears tender, with linear ulcerated lesion in dermatomal distribution consistent with shingles. does not appear infected. Will consult wound care to see patient. If developes signs or symptoms of superimprosed bacterial infection, with treat with antibiotics. Gabapentin 300 mg BID. Qualifiers: Herpes zoster complications: without complications Qualified Code(s): B02.9 - Zoster without complications (3) Closed T5 fracture Current Visit: No Status: Acute Qualifiers: Encounter type: subsequent encounter Fracture morphology: wedge compression Fracture healing: with routine healing Qualified Code(s): S22.050D - Wedge compression fracture of T5-T6 vertebra, subsequent encounter for fracture with routine healing (4) Elevated troponin Current Visit: No Status: Acute Assessment and plan: Resolved, was likely due to demand ischemia (5) Essential hypertension Current Visit: No Status: Chronic Assessment and plan: Hydralazine 25 mg PO Q8H scheduled Losartan 50 mg BID Toprol 25 mg BID - Subjective Interval history: No acute events overnight. Pain from shingles much better today. She slept well overnight. - Constitutional Vitals: Temp Pulse Resp BP Pulse Ox 97.8 F 71 16 180/83 96 12/19/17 08:01 12/19/17 08:01 12/19/17 08:01 12/19/17 08:01 12/19/17 08:01 General appearance: Present: cooperative, A&O X 3, answers questions appropriately Exam: Skin shows ulcerated lesion in linear dermatomal pattern on her back. There is no purulent discharge. CVS: RRR lungs:CTAB Ext: 1+ bilateral pitting edema Internal Medicine: Result - Labs CBC & Chem 7: 12/17/17 04:40 02/17/18 04:22 Labs: BMP 12/19/17 04:22 Sodium 134 L Potassium 4.2 Chloride 102 Carbon Dioxide 27 BUN 24 H Creatinine 0.82 Glucose 107 H Calcium 8.8 - VTE Documentation of Mechanical Device: Intermittent pneumatic compression device Consult Discharge Plan - Plan Referrals: Megan Castro DO [Primary Care Provider] - (possible ECF)
--- NOTE | 2017-12-19 14:00 | Nephrology Progress Note ---
Date of Encounter: 12/19/17 Time of Encounter: 12:00 - Assessment and Plan (1) Hyponatremia Current Visit: Yes Status: Acute Sodium remains stable at 134 s/p tolvaptan Continue salt tabs Continue fluid restriction Continue salt packets with meals (2) Anemia Current Visit: Yes Status: Acute Hgb noted at 9.3 as of yesterday with iron deficiency, continue supplements Qualifiers: Anemia type: unspecified type Qualified Code(s): D64.9 - Anemia, unspecified (3) Essential hypertension Current Visit: No Status: Chronic BP readings fluctuating, continue current regimen but can increase metoprolol if needed Subjective Principal diagnosis: Hyponatremia Interval history: Pt seen and examined with no new complaints Objective - Vital Signs Vital signs: Vital Signs Temp Pulse Resp BP Pulse Ox 12/19/17 12:16 97.9 F 84 16 145/72 96 12/19/17 10:11 144/74 12/19/17 08:01 97.8 F 71 16 180/83 96 12/19/17 05:07 97.5 F L 101 16 163/79 94 12/19/17 01:19 78 160/83 12/19/17 00:08 98.8 F 92 18 163/107 95 12/18/17 20:17 99 F 109 17 180/89 93 12/18/17 17:58 134/76 12/18/17 16:34 99.2 F 97 18 161/97 94 Intake and Output 12/18/17 12/19/17 12/19/17 23:59 07:59 15:59 Intake Total 200 / 200 240 / 240 Output Total 700 / 700 Balance 200 / 200 -700 / -700 240 / 240 Intake: Oral 200 / 200 240 / 240 Output: Urine 700 / 700 Other: Meal Breakfast Percent of Meal Consumed 100% Weight 66 kg Patient Weight 12/19/17 23:59 Weight 66 kg - General Appearance General appearance: Present: frail (NAD) EENT: Present: ATNC, mucous membranes moist Neck: Present: no JVD, supple Respiratory: Present: clear (ant bilat) Cardiology: Present: no edema, normal S1, normal S2 Gastrointestinal: Present: no tenderness, no guarding Integumentary: Present: warm and dry Neurologic: Present: no focal deficit Musculoskeletal: Present: no deformities Psychiatric: Present: mood/affect appropriate, cooperative - Lab 12/20/17 04:56 12/20/17 04:56 Most recent lab results Calcium 8.8 mg/dL (8.6-10.3) 12/19/17 04:22 Phosphorus 3.0 mg/dL (2.7-4.5) 12/14/17 21:17 Magnesium 1.7 mg/dL (1.6-2.6) 12/15/17 01:36 Urine Sodium 43.6 mEq/L 12/14/17 17:22 - VTE Documentation of Mechanical Device: Intermittent pneumatic compression device Consult Discharge Plan - Plan Referrals: Megan Castro DO [Primary Care Provider] - (possible ECF)
[2017-12-19] MEDS: Melatonin 3 MG TABLET PO SCH (22:34)
[2017-12-20] MEDS: hydrALAZINE 25 MG TABLET PO SCH ×3 (00:42→15:31)
[2017-12-20] MEDS ORDERED: *HR* Labetalol 20 MG/4 ML SYRINGE IVP ONE (04:33)
[2017-12-20 05:13] LABS: Basophils % 0.3 %; Eosinophils % 0.4 %; Hematocrit 32.2 % (35.3-44.9); Hemoglobin 10.3 g/dL (11.5-15.4); Immature Granulocytes % 0.6 % (0-4); Lymphocytes # 1.1 K/mcL (0.6-4.6); Lymphocytes % 11.1 %; Mean Corpuscular Hemoglobin 32.2 pg (28.0-33.3); Mean Corpuscular Volume 100.6 fL (83.0-100.0); Monocytes # 0.8 K/mcL (0.0-1.3); Monocytes % 7.5 %; Platelet Count 248 K/mcL (140-400); Red Cell Distribution Width 13.6 % (11.5-14.5); Segmented Neutrophils % 80.1 %
[2017-12-20 05:35] LABS: BUN/Creatinine Ratio 32 (6-26); Blood Urea Nitrogen 23 mg/dL (8-23); Calcium 9.1 mg/dL (8.6-10.3); Carbon Dioxide 24 mEq/L (23-29); Chloride 102 mEq/L (98-107); Glucose 111 mg/dL (70-105); Osmolality,Calculated 282 (280-300); Potassium 4.2 mEq/L (3.5-5.1); Sodium 134 mEq/L (136-145); eGFR For African Americans > 60 (> 60); eGFR For Non-African Americans > 60 (> 60)
[2017-12-20] MEDS: *HR* Enoxaparin 40 MG/0.4 ML SYRINGE SQ SCH (05:54)
[2017-12-20] MEDS: Aspirin 81 MG TAB.CHEW PO SCH (08:44)
[2017-12-20] MEDS: Multivit/Ca/Min/Fe/FA 1 TAB TABLET PO SCH (08:44)
[2017-12-20] MEDS: Gabapentin 300 MG CAPSULE PO SCH ×2 (08:44→21:14)
[2017-12-20] MEDS: Loratadine 10 MG TABLET PO SCH (08:44)
[2017-12-20] MEDS: Lactobacillus 1 EACH CAP.SPRINK PO SCH ×2 (08:53→21:14)
--- NOTE | 2017-12-20 09:05 | Internal Med Progress Note ---
Date of Encounter: 12/20/17 Time of Encounter: 09:03 - Assessment and plan (1) Hyponatremia Current Visit: Yes Status: Acute Assessment and plan: Hher hyponatremia mostly due to hypovolemia / dehdyration / Poor PO intake HCTZ held on admission strict I & O Fluid restrict, 2L NaCl 1 gm PO TID Sodium wnl on 12/17, Has been 134 since then Nephrology following, recommendations appreciated. (2) Essential hypertension Current Visit: No Status: Chronic Assessment and plan: Home medications: - Losartan 50 mg BID - Metoprolol 25 mg BID - HCTZ (held bc hyponatremia Added: - Hydralazine 25 mg PO Q8H - prn: hydralazine IV Patient BP raged from SBP 118-200, DBP 67-97 Will consider increasing dose of a medication if BP is high again. Concern is patient SBP was also 118 nine hours ago. (3) Shingles Current Visit: No Status: Acute Assessment and plan: Patient recently completed a course of valcyclovir. Patient has post herpetic neuralgia. Skin appears tender, with linear ulcerated lesion in dermatomal distribution consistent with shingles. does not appear infected. Will consult wound care to see patient. If developes signs or symptoms of superimprosed bacterial infection, with treat with antibiotics. Gabapentin 300 mg BID. Qualifiers: Herpes zoster complications: without complications Qualified Code(s): B02.9 - Zoster without complications (4) Closed T5 fracture Current Visit: No Status: Acute Qualifiers: Encounter type: subsequent encounter Fracture morphology: wedge compression Fracture healing: with routine healing Qualified Code(s): S22.050D - Wedge compression fracture of T5-T6 vertebra, subsequent encounter for fracture with routine healing (5) Elevated troponin Current Visit: No Status: Acute Assessment and plan: Resolved, was likely due to demand ischemia - Subjective Interval history: No acute events overnight. Patient had rough time sleeping because her blood pressure was elevated. She denies headache, chest pain, SOB, n/v - Constitutional Vitals: Temp Pulse Resp BP Pulse Ox 98.8 F 95 16 154/95 99 12/20/17 07:42 12/20/17 07:42 12/20/17 07:42 12/20/17 07:42 12/20/17 07:42 General appearance: Present: cooperative, A&O X 3, answers questions appropriately - Head Head exam: Present: atraumatic, normocephalic - Eye Eye exam: Present: PERRL, conjuntiva pink, sclera anicteric Pupils: Present: PERRL - Neck Neck exam general surgery: Present: supple, trachea midline. Absent: lymphadenopathy - Respiratory Respiratory exam: Present: CTAB. Absent: accessory muscle use, rales, rhonchi, wheezes - Cardiovascular Cardiovascular exam: Present: RRR, +S1, +S2. Absent: diastolic murmur, gallop, rubs, systolic murmur - GI/Abdominal GI/Abdominal exam: Present: normal bowel sounds, soft, no peritoneal signs. Absent: distended, tenderness - Extremities Exam Extremities exam: Present: pedal edema, warm, radial pulses palpable and symmetrical. Absent: calf tenderness, cyanotic Additional comments: trace; improved since yesterday exam - Neurological Exam Neurological exam: Present: CN II-XII intact, oriented X3, no focal deficits. Absent: pronater drift, facial droop, speech deficit - Skin Skin exam: Present: dry, intact Internal Medicine: Result - Labs CBC & Chem 7: 12/20/17 04:56 12/20/17 04:56 Labs: Short CBC 12/20/17 Range/Units 04:56 WBC 10.0 (4.3-11.1) K/mcL Hgb 10.3 L (11.5-15.4) g/dL Hct 32.2 L (35.3-44.9) % Plt Count 248 (140-400) K/mcL Neutrophils # 8.0 (1.6-8.9) K/mcL BMP 12/20/17 04:56 Sodium 134 L Potassium 4.2 Chloride 102 Carbon Dioxide 24 BUN 23 Creatinine 0.72 Glucose 111 H Calcium 9.1 - VTE Documentation of Mechanical Device: Intermittent pneumatic compression device Consult Discharge Plan - Plan Referrals: Megan Castro DO [Primary Care Provider] - (possible ECF)
--- NOTE | 2017-12-20 13:01 | Nephrology Progress Note ---
Date of Encounter: 12/20/17 Time of Encounter: 12:00 - Assessment and Plan (1) Hyponatremia Current Visit: Yes Status: Acute Sodium remains stable at 134 s/p tolvaptan, which is quite acceptable as possible new baseline Will need continued salt tabs on discharge with followup with Dr Brooks within 2 weeks. BMP within the first week Continue fluid restriction Continue salt packets with meals will sign off, please reconsult prn (2) Anemia Current Visit: Yes Status: Acute Hgb noted at 10.3 improving with iron deficiency, continue supplements Qualifiers: Anemia type: unspecified type Qualified Code(s): D64.9 - Anemia, unspecified (3) Essential hypertension Current Visit: No Status: Chronic BP readings elevated up tp 200s systolic earlier today, etiology unclear but perhaps ?pain related? Continue current regimen but can increase metoprolol if needed Subjective Principal diagnosis: Hyponatremia Interval history: Pt seen and examined with no new complaints Objective - Vital Signs Vital signs: Vital Signs Temp Pulse Resp BP Pulse Ox 12/20/17 11:19 98.3 F 86 16 144/80 96 12/20/17 07:42 98.8 F 95 16 154/95 99 12/20/17 05:36 166/91 12/20/17 04:25 99.1 F 82 16 200/97 96 12/19/17 23:21 99.1 F 84 16 118/67 97 12/19/17 19:19 99.2 F 100 16 168/88 95 12/19/17 16:17 98.5 F 80 18 149/84 97 Intake and Output 12/19/17 12/20/17 12/20/17 23:59 07:59 15:59 Intake Total 240 / 240 Output Total 300 / 300 Balance -300 / -300 240 / 240 Intake: Oral 240 / 240 Output: Urine 300 / 300 Other: Meal Breakfast Percent of Meal Consumed 100% Stool Size Smear Small Stool Consistency liquid formed Stool Characteristics Normal for Patient Stool Color Brown Brown # Bowel Movements 1 1 Weight 67.3 kg Patient Weight 12/20/17 23:59 Weight 67.3 kg - General Appearance General appearance: Present: frail (NAD) EENT: Present: ATNC, mucous membranes moist Neck: Present: no JVD, supple Respiratory: Present: clear Cardiology: Present: no edema, normal S1, normal S2 Gastrointestinal: Present: no tenderness, no guarding Integumentary: Present: warm and dry Neurologic: Present: no focal deficit Musculoskeletal: Present: no deformities Psychiatric: Present: mood/affect appropriate, cooperative - Lab 12/20/17 04:56 12/20/17 04:56 Most recent lab results Calcium 9.1 mg/dL (8.6-10.3) 12/20/17 04:56 Phosphorus 3.0 mg/dL (2.7-4.5) 12/14/17 21:17 Magnesium 1.7 mg/dL (1.6-2.6) 12/15/17 01:36 Urine Sodium 43.6 mEq/L 12/14/17 17:22 - VTE Documentation of Mechanical Device: Intermittent pneumatic compression device Consult Discharge Plan - Plan Referrals: Megan Castro DO [Primary Care Provider] - (possible ECF)
[2017-12-20] MEDS: Melatonin 3 MG TABLET PO SCH (21:14)
[2017-12-21] MEDS: hydrALAZINE 25 MG TABLET PO SCH ×2 (00:42→08:35)
[2017-12-21 06:07] LABS: BUN/Creatinine Ratio 25 (6-26); Blood Urea Nitrogen 19 mg/dL (8-23); Carbon Dioxide 27 mEq/L (23-29); Chloride 103 mEq/L (98-107); Glucose 98 mg/dL (70-105); Osmolality,Calculated 282 (280-300); Potassium 4.2 mEq/L (3.5-5.1); Sodium 135 mEq/L (136-145); eGFR For African Americans > 60 (> 60); eGFR For Non-African Americans > 60 (> 60)
[2017-12-21] MEDS: *HR* Enoxaparin 40 MG/0.4 ML SYRINGE SQ SCH (06:09)
--- NOTE | 2017-12-21 08:33 | Discharge Summary ---
Date of Encounter: 12/21/17 Time of Encounter: 08:28 - Discharge Diagnosis (1) Hyponatremia Priority: Primary Status: Acute (2) Essential hypertension Priority: Secondary Status: Chronic (3) Shingles Priority: Secondary Status: Acute Qualifiers: Herpes zoster complications: without complications Qualified Code(s): B02.9 - Zoster without complications (4) Closed T5 fracture Priority: Secondary Status: Acute Qualifiers: Encounter type: subsequent encounter Fracture morphology: wedge compression Fracture healing: with routine healing Qualified Code(s): S22.050D - Wedge compression fracture of T5-T6 vertebra, subsequent encounter for fracture with routine healing (5) Elevated troponin Priority: Secondary Status: Acute - Discharge Medications Prescriptions: Gabapentin [Neurontin] 300 mg PO BID 14 Days #28 capsule Sodium Chloride 1 gm PO TID #42 tablet Home Medications: Loratadine [Claritin] 10 mg PO DAILY 10/12/16 [History] Pantoprazole Sodium [Protonix] 40 mg PO DAILY 10/12/16 [History] Aspirin 81 mg PO DAILY 12/01/16 [History] Calcium Carbonate/Vitamin D3 [Calcium 500-Vit D3 200 Caplet] 1 each PO DAILY [History] Multivitamin [Multi-Day Vitamins] 1 each PO DAILY 12/01/16 [History] Losartan Potassium [Cozaar] 50 mg PO BID #60 tab 12/03/16 [Rx] Pravastatin Sodium [Pravachol] 20 mg PO HS #30 tablet 12/03/16 [Rx] Metoprolol [Lopressor] 25 mg PO BID 11/04/17 [History] Melatonin 3 mg PO HS tablet 11/09/17 [Rx] Benzonatate 100 mg PO DAILY PRN 12/02/17 [History] Guaifenesin [Mucinex] 600 mg PO BID PRN 12/02/17 [History] Lactobacillus Acidophilus [Acidophilus] 1 tab PO BID 12/02/17 [History] ALPRAZolam [Xanax 0.5 MG Tablet] 0.5 mg PO BID PRN 1 Days #2 tablet 12/05/17 [Rx ] Calcium Carbonate [Tums] 1,000 mg PO TID tab.chew 12/05/17 [Rx] Mupirocin [Bactroban Oint] 1 appl TP BID tube 12/05/17 [Rx] Docusate [Colace] 100 mg PO BID PRN capsule 12/21/17 [Rx] Ferrous Sulfate 325 mg PO DAILY@0800 tablet 12/21/17 [Rx] Gabapentin [Neurontin] 300 mg PO BID 14 Days #28 capsule 12/21/17 [Rx] Sodium Chloride 1 gm PO TID #42 tablet 12/21/17 [Rx] hydrALAZINE [HydrALAZINE] 25 mg PO Q8HR tablet 12/21/17 [Rx] Allergies/Adverse Reactions: 3 Allergy/AdvReac Type Severity Reaction Status Date / Time aspirin AdvReac See Verified 12/02/17 10:14 Comments Date of admission: 12/15/17 03:10 Primary care physician: Megan Castro DO Consults: 12/16/17 12:14 Consult to Wound Care [CONS] Stat Reason for Consult: Shingles rash Time Notified: 12:16 Call Completed: No Discharging clinician: Marcos Sheridan - Patient Status Disposition: Transfer SNF Condition: Fair Functional capacity at discharge: uses cane/walker Overall status at discharge: patient is back to baseline - Discharge Instructions Follow Up With: Megan Castro DO [Primary Care Provider] - (possible ECF) - Diet and Activity Activity: increase activity as tolerated Diet: regular diet (Fluid restricted, 2 L/day) Hospital course: Ms. Rolle is a 82 year old female with known HTN, HLD, Seizure, who recently developed severe shingles on her Rt upper back and Rt breast area finished full course of Valcyclovir, presented to ER from [facility] after have routine labs drawn showing Na of 121. She was recently admitted to this facility from 12/01/17 to 12/05/17 with AMS, at that time she has hyponatremia low @ 125, her HCTZ was stopped during that hospitlaization. Pt states she is not eating and drinking well from last few days. She was weak and lethargic. She was admitted to telemetry floor. She was given gentle IV hydration. Nephrology was consulted. Patient home medication of HCTZ was discontinued. Hydralazine PO was added instead since patient did become hypertensive after discontinuation. After patient was re-hydrated, sodium still low. She also had pitting edema of ankles. She received a dose of Tolvaptan 15 mg x1. She was started on NaCl tabs and fluid restricted. Sodium improved and remained stable in 134 range. She had severe shingles pain and low dose gabapentin was started. Wound care was consulted as her shingles rash was extensive and painful. She was discharged home in stable condition. - Time Spent with Patient Total time spent providing and/or coordinating discharge services: - Constitutional Vitals: Temp Pulse Resp BP Pulse Ox 97.8 F 94 16 128/77 96 12/21/17 08:26 12/21/17 08:26 12/21/17 08:26 12/21/17 08:26 12/21/17 08:26 General appearance: Present: cooperative, A&O X 3, answers questions appropriately - Head Head exam: Present: atraumatic, normocephalic - Eye Eye exam: Present: PERRL, conjuntiva pink, sclera anicteric Pupils: Present: PERRL - Neck Neck exam general surgery: Present: supple, trachea midline. Absent: lymphadenopathy - Respiratory Respiratory exam: Present: CTAB. Absent: accessory muscle use, rales, rhonchi, wheezes - Cardiovascular Cardiovascular exam: Present: RRR, +S1, +S2, systolic murmur. Absent: diastolic murmur, gallop, rubs - GI/Abdominal GI/Abdominal exam: Present: normal bowel sounds, soft, no peritoneal signs. Absent: distended, tenderness - Extremities Exam Extremities exam: Present: pedal edema, warm, radial pulses palpable and symmetrical. Absent: calf tenderness, cyanotic - Neurological Exam Neurological exam: Present: CN II-XII intact, oriented X3, no focal deficits. Absent: pronater drift, facial droop, speech deficit - Skin Skin exam: Present: dry, intact - VTE Documentation of Mechanical Device: Intermittent pneumatic compression device
[2017-12-21] MEDS: ALPRAZolam 0.5 MG TABLET PO PRN ×2 (08:34→12:49)
[2017-12-21] MEDS: Lactobacillus 1 EACH CAP.SPRINK PO SCH (08:34)
[2017-12-21] MEDS: Loratadine 10 MG TABLET PO SCH (08:35)
[2017-12-21] MEDS: Gabapentin 300 MG CAPSULE PO SCH (08:35)
[2017-12-21] MEDS: Multivit/Ca/Min/Fe/FA 1 TAB TABLET PO SCH (08:35)
[2017-12-21] MEDS: Aspirin 81 MG TAB.CHEW PO SCH (08:35)
--- NOTE | 2017-12-21 08:46 | Physician Discharge Referral ---
ExtendedCare Referral Info Institutional Level of Care: Skilled - Diagnosis (1) Hyponatremia Priority: Primary Status: Acute (2) Essential hypertension Priority: Secondary Status: Chronic (3) Shingles Priority: Secondary Status: Acute (4) Closed T5 fracture Priority: Secondary Status: Acute (5) Elevated troponin Priority: Secondary Status: Acute - Transfer Medications Prescriptions: Gabapentin [Neurontin] 300 mg PO BID 14 Days #28 capsule Sodium Chloride 1 gm PO TID #42 tablet Home Medications: Loratadine [Claritin] 10 mg PO DAILY 10/12/16 [History] Pantoprazole Sodium [Protonix] 40 mg PO DAILY 10/12/16 [History] Aspirin 81 mg PO DAILY 12/01/16 [History] Calcium Carbonate/Vitamin D3 [Calcium 500-Vit D3 200 Caplet] 1 each PO DAILY [History] Multivitamin [Multi-Day Vitamins] 1 each PO DAILY 12/01/16 [History] Losartan Potassium [Cozaar] 50 mg PO BID #60 tab 12/03/16 [Rx] Pravastatin Sodium [Pravachol] 20 mg PO HS #30 tablet 12/03/16 [Rx] Metoprolol [Lopressor] 25 mg PO BID 11/04/17 [History] Melatonin 3 mg PO HS tablet 11/09/17 [Rx] Benzonatate 100 mg PO DAILY PRN 12/02/17 [History] Guaifenesin [Mucinex] 600 mg PO BID PRN 12/02/17 [History] Lactobacillus Acidophilus [Acidophilus] 1 tab PO BID 12/02/17 [History] ALPRAZolam [Xanax 0.5 MG Tablet] 0.5 mg PO BID PRN 1 Days #2 tablet 12/05/17 [Rx ] Calcium Carbonate [Tums] 1,000 mg PO TID tab.chew 12/05/17 [Rx] Mupirocin [Bactroban Oint] 1 appl TP BID tube 12/05/17 [Rx] Docusate [Colace] 100 mg PO BID PRN capsule 12/21/17 [Rx] Ferrous Sulfate 325 mg PO DAILY@0800 tablet 12/21/17 [Rx] Gabapentin [Neurontin] 300 mg PO BID 14 Days #28 capsule 12/21/17 [Rx] Sodium Chloride 1 gm PO TID #42 tablet 12/21/17 [Rx] hydrALAZINE [HydrALAZINE] 25 mg PO Q8HR tablet 12/21/17 [Rx] Allergies/Adverse Reactions: 3 Allergy/AdvReac Type Severity Reaction Status Date / Time aspirin AdvReac See Verified 12/02/17 10:14 Comments - Respiratory Orders Smoking Cessation: Smoking cessation has been advised. For more information, call the [place] Tobacco Quit Line at 1-612-MQJT-NOW. - Ancillary Orders May use pressure relief devices daily prn, May consult with Dentist, Casino Assistant Manager, Music Pastor PRN - Mobility Orders Other (as per physical therapy) - Rehabiliation Orders Rehab Potential: Fair Rehab Orders: Sternal Precautions, Evaluation for Physical Therapy, Evaluation for Occupational Therapy - Treatments Skin tear care topically daily PRN per policy - Diet Orders Regular (2 L/day fluid restriction) House Supplement per Dietary: Ensure chocolate or vanilla BID CERTIFICATION: I certify that the transfer of the above named patient to an Extended Care Facility is necessary for the continuing treatment of the diagnosis listed. The above information is true and accurate reflection of patient's current condition. Confidential - Redisclosure prohibited without a patient's written consent.
[2017-12-21 08:54] LABS: Basophils # 0.1 K/mcL (0.0-0.2); Basophils % 0.6 %; Eosinophils # 0.1 K/mcL (0.0-0.6); Eosinophils % 1.5 %; Hematocrit 34.6 % (35.3-44.9); Immature Granulocytes % 0.8 % (0-4); Lymphocytes # 1.4 K/mcL (0.6-4.6); Lymphocytes % 15.2 %; Mean Corpuscular HGB Conc 31.8 g/dL (31.6-35.5); Mean Corpuscular Hemoglobin 32.7 pg (28.0-33.3); Mean Platelet Volume 8.6 fL (9.4-12.4); Monocytes # 0.7 K/mcL (0.0-1.3); Monocytes % 7.7 %; Neutrophils # 6.6 K/mcL (1.6-8.9); Platelet Count 308 K/mcL (140-400); Red Blood Count 3.36 M/mcL (3.82-4.97); Red Cell Distribution Width 14.2 % (11.5-14.5); Segmented Neutrophils % 74.2 %
[2017-12-21 11:39] VITALS: BP 120/75
[2017-12-21] MEDS ORDERED: hydrALAZINE 25 MG TABLET PO SCH (15:00)
== END 2017-12-21 13:35 | DRG 641 ==
LOC: 2ANU 16:33 → EMEROO 16:33 → 2ANU 21:55
PROVIDERS: ADMIT Internal Medicine; ATTEND Internal Medicine

== ENCOUNTER 2018-02-12 21:55 | Inpatient (IN) ==
[2018-02-12 23:14] LABS: Basophils % 0.2 %; Hemoglobin 10.6 g/dL (11.5-15.4); Immature Granulocytes % 0.7 % (0-4); Lymphocytes # 2.2 K/mcL (0.6-4.6); Lymphocytes % 13.1 %; Mean Corpuscular HGB Conc 33.1 g/dL (31.6-35.5); Mean Corpuscular Hemoglobin 32.3 pg (28.0-33.3); Mean Corpuscular Volume 97.6 fL (83.0-100.0); Monocytes # 1.9 K/mcL (0.0-1.3); Monocytes % 11.1 %; Neutrophils # 12.7 K/mcL (1.6-8.9); Platelet Count 237 K/mcL (140-400); Red Blood Count 3.28 M/mcL (3.82-4.97); Red Cell Distribution Width 13.2 % (11.5-14.5); Segmented Neutrophils % 74.9 %
--- NOTE | 2018-02-12 23:18 | Emergency Department Note ---
Disposition Clinical Impression: Fall Qualifiers: Encounter type: initial encounter Qualified Code(s): W19.XXXA - Unspecified fall, initial encounter Altered mental status Qualifiers: Altered mental status type: unspecified Qualified Code(s): R41.82 - Altered mental status, unspecified Disposition: Still a Patient Condition: Good Referrals: Megan Castro DO [Primary Care Provider] - Time of Disposition: 23:32 General Adult HPI - General Chief complaint: ED Fall Time Seen by Provider: 02/12/18 22:50 Source: patient, EMS Limitations: altered mental status Nursing Notes Reviewed: Yes Vital Signs Reviewed: Yes - History of Present Illness HPI Narrative: Patient is a 82-year-old female that presents the emergency department after having 2 falls today. Patient stays at an extended care facility and the son reports that she has had 2 falls today 1 where she hit her head. Patient reports that she felt somewhat disoriented and then fell. Patient reports that she is having head pain, neck pain and hip pain. The son states that she does not seem to be herself at this time he says that she seems to be more confused than normal. Pain Scale: 0 - Related Data Home Medications Medication Instructions Recorded Confirmed Loratadine [Claritin] 10 mg PO DAILY 10/12/16 12/14/17 Pantoprazole Sodium [Protonix] 40 mg PO DAILY 10/12/16 12/14/17 Aspirin 81 mg PO DAILY 12/01/16 12/14/17 Calcium Carbonate/Vitamin D3 1 each PO DAILY 12/01/16 12/14/17 [Calcium 500-Vit D3 200 Caplet] Multivitamin [Multi-Day Vitamins] 1 each PO DAILY 12/01/16 12/14/17 Metoprolol [Lopressor] 25 mg PO BID 11/04/17 12/14/17 Benzonatate 100 mg PO DAILY PRN 12/02/17 12/14/17 Guaifenesin [Mucinex] 600 mg PO BID PRN 12/02/17 12/14/17 Lactobacillus Acidophilus 1 tab PO BID 12/02/17 12/14/17 [Acidophilus] Previous Rx's Medication Instructions Recorded Losartan Potassium [Cozaar] 50 mg PO BID #60 tab 12/03/16 Pravastatin Sodium [Pravachol] 20 mg PO HS #30 tablet 12/03/16 Melatonin 3 mg PO HS tablet 11/09/17 ALPRAZolam [Xanax 0.5 MG Tablet] 0.5 mg PO BID PRN 1 Days #2 tablet 12/05/17 Calcium Carbonate [Tums] 1,000 mg PO TID tab.chew 12/05/17 Mupirocin [Bactroban Oint] 1 appl TP BID tube 12/05/17 ALPRAZolam [Xanax 0.5 MG Tablet] 0.5 mg PO BID PRN 5 Days #10 tablet 12/21/17 Docusate [Colace] 100 mg PO BID PRN capsule 12/21/17 Ferrous Sulfate 325 mg PO DAILY@0800 tablet 12/21/17 Gabapentin [Neurontin] 300 mg PO BID 14 Days #28 capsule 12/21/17 Sodium Chloride 1 gm PO TID #42 tablet 12/21/17 hydrALAZINE [HydrALAZINE] 25 mg PO Q8HR tablet 12/21/17 Allergies Allergy/AdvReac Type Severity Reaction Status Date / Time aspirin AdvReac See Verified 02/12/18 22:06 Comments All systems ED: reviewed and negative except as stated. Cardiovascular: Denies: chest pain Respiratory: Denies: dyspnea Gastrointestinal: Denies: abdominal pain Genitourinary: Denies: urgency, dysuria, frequency Musculoskeletal: Reports: other (Hip pain and neck pain) Past Medical History - Past Medical History Medical history: Reports: coronary artery disease, GERD, hypertension, myocardial infarction, renal disease, seizures Surgical history: Reports: appendectomy Psychiatric history: Reports: anxiety, depression - Social History Smoking Status: Never smoker Smokeless Tobacco Status: No Alcohol use: Reports: none Drug use: Reports: none Physical Exam - General Limitations: altered mental status General appearance: alert, in no apparent distress - Head Head exam: normocephalic, other (Small lump on the right frontal aspect of the right head) - Eye Eye exam: Present: normal appearance, EOMI - Neck Neck exam: Present: normal inspection, full ROM, trachea midline, tenderness ( Posterior midline) - Respiratory Respiratory exam: Present: normal lung sounds bilaterally. Absent: respiratory distress, wheezes - Cardiovascular Cardiovascular exam: Present: regular rate, normal rhythm, normal heart sounds, +S1, +S2 - Abdominal Exam Abdominal exam: Present: soft, Non-Tender, normal bowel sounds - Expanded Lower Extremity Exam Hip/Pelvis exam: Present: normal inspection, tenderness (Patient has tenderness over bilateral hips) Upper leg exam: Present: normal inspection, full ROM. Absent: tenderness - Neurological Exam Neurological exam: Present: alert. Absent: oriented X3 - Psychiatric Psychiatric exam: Present: normal affect, normal mood - Skin Skin exam: Present: warm, dry, intact Course Vital Signs Temperature 99.8 F H 02/12/18 22:06 Pulse Rate 91 02/12/18 22:06 Respiratory Rate 16 02/12/18 22:06 Blood Pressure 156/95 02/12/18 22:06 O2 Sat by Pulse Oximetry 94 02/12/18 22:06 Temperature 99.8 F H 02/12/18 22:06 Pulse Rate 91 02/12/18 22:06 Respiratory Rate 16 02/12/18 22:06 Blood Pressure 156/95 02/12/18 22:06 O2 Sat by Pulse Oximetry 94 02/12/18 22:06 Oxygen Delivery Oxygen Delivery Room Air Medical Decision Making - MDM Narrative Medical decision making narrative: Due to the patient having a recent fall and altered mental status we will obtain a CBC, BMP, urinalysis, chest x-ray, CT scan of the head cervical spine and thoracic spine. We will also get x-rays of bilateral hips and pelvis. These patient will be signed out to night team with Dr. Decker and Dr. Lutz. - EKG Data EKG #1 EKG attestation: Yes I reviewed and interpreted this EKG. EKG results narrative: EKG showed a sinus rhythm at a rate of 80 bpm, MT interval 186, QRS duration of 87, QTC of 362. No STEMI is noted on EKG. This was compared to previous EKG on 02/02/18 which shows sinus rhythm at a rate of 74 bpm.
[2018-02-12 23:20] LABS: Bilirubin,Urine Negative (Negative); Blood,Urine Negative (Negative); Clarity,Urine Clear (Clear); Color,Urine Yellow (Yellow); Glucose,Urine (UA) Normal (Normal); Ketones,Urine Negative (Negative); Leukocyte Esterase,Urine Negative (Negative); Nitrite,Urine Negative (Negative); PH,Urine 5.5 pH Units (5.0-8.0); Protein,Urine 30 mg/dL (Neg-Trace); Specific Gravity,Urine 1.025 (1.010-1.025); Urobilinogen,Urine Normal (Normal)
[2018-02-12 23:22] LABS: Bacteria,Urine None Seen per hpf (None-Few); Hyaline Casts,Urine Few per lpf (None-Few); RBC,Urine 0-3 per hpf (0-3); Squamous Epithelial Cell,Urine Many per lpf (None-Few); WBC,Urine 0-3 per hpf (0-3)
[2018-02-12 23:31] LABS: BUN/Creatinine Ratio 24 (6-26); Blood Urea Nitrogen 23 mg/dL (8-23); Calcium 9.4 mg/dL (8.6-10.3); Carbon Dioxide 22 mEq/L (23-29); Chloride 98 mEq/L (98-107); Glucose 123 mg/dL (70-105); Osmolality,Calculated 269 (280-300); Potassium 4.2 mEq/L (3.5-5.1); Sodium 127 mEq/L (136-145); eGFR For African Americans > 60 (> 60); eGFR For Non-African Americans 57 (> 60)
--- NOTE | 2018-02-13 01:48 | Emergency Department Note ---
Disposition Clinical Impression: Leukocytosis, Hyponatremia Fall Qualifiers: Encounter type: initial encounter Qualified Code(s): W19.XXXA - Unspecified fall, initial encounter Altered mental status Qualifiers: Altered mental status type: unspecified Qualified Code(s): R41.82 - Altered mental status, unspecified Disposition: Still a Patient Condition: Good Referrals: Megan Castro DO [Primary Care Provider] - Forms: ED Satisfaction Letter Time of Disposition: 01:48 General Adult HPI - General Chief complaint: ED Fall Time Seen by Provider: 02/12/18 22:50 Source: patient, EMS Limitations: altered mental status - History of Present Illness Pain Scale: 0 - Related Data Home Medications Medication Instructions Recorded Confirmed Loratadine [Claritin] 10 mg PO DAILY 10/12/16 12/14/17 Pantoprazole Sodium [Protonix] 40 mg PO DAILY 10/12/16 12/14/17 Aspirin 81 mg PO DAILY 12/01/16 12/14/17 Calcium Carbonate/Vitamin D3 1 each PO DAILY 12/01/16 12/14/17 [Calcium 500-Vit D3 200 Caplet] Multivitamin [Multi-Day Vitamins] 1 each PO DAILY 12/01/16 12/14/17 Metoprolol [Lopressor] 25 mg PO BID 11/04/17 12/14/17 Benzonatate 100 mg PO DAILY PRN 12/02/17 12/14/17 Guaifenesin [Mucinex] 600 mg PO BID PRN 12/02/17 12/14/17 Lactobacillus Acidophilus 1 tab PO BID 12/02/17 12/14/17 [Acidophilus] Previous Rx's Medication Instructions Recorded Losartan Potassium [Cozaar] 50 mg PO BID #60 tab 12/03/16 Pravastatin Sodium [Pravachol] 20 mg PO HS #30 tablet 12/03/16 Melatonin 3 mg PO HS tablet 11/09/17 ALPRAZolam [Xanax 0.5 MG Tablet] 0.5 mg PO BID PRN 1 Days #2 tablet 12/05/17 Calcium Carbonate [Tums] 1,000 mg PO TID tab.chew 12/05/17 Mupirocin [Bactroban Oint] 1 appl TP BID tube 12/05/17 ALPRAZolam [Xanax 0.5 MG Tablet] 0.5 mg PO BID PRN 5 Days #10 tablet 12/21/17 Docusate [Colace] 100 mg PO BID PRN capsule 12/21/17 Ferrous Sulfate 325 mg PO DAILY@0800 tablet 12/21/17 Gabapentin [Neurontin] 300 mg PO BID 14 Days #28 capsule 12/21/17 Sodium Chloride 1 gm PO TID #42 tablet 12/21/17 hydrALAZINE [HydrALAZINE] 25 mg PO Q8HR tablet 12/21/17 Allergies Allergy/AdvReac Type Severity Reaction Status Date / Time aspirin AdvReac See Verified 02/12/18 22:06 Comments Cardiovascular: Denies: chest pain Respiratory: Denies: dyspnea Gastrointestinal: Denies: abdominal pain Genitourinary: Denies: urgency, dysuria, frequency Musculoskeletal: Reports: other (Hip pain and neck pain) Past Medical History - Past Medical History Medical history: Reports: coronary artery disease, GERD, hypertension, myocardial infarction, renal disease, seizures Surgical history: Reports: appendectomy Psychiatric history: Reports: anxiety, depression - Social History Smoking Status: Never smoker Smokeless Tobacco Status: No Alcohol use: Reports: none Drug use: Reports: none Physical Exam - General Limitations: altered mental status General appearance: alert, in no apparent distress Course - Reevaluation(s) Reevaluation #1: Patient was signed out from Dr. Kostas Ash pending imaging. Patient has a possible thoracic spine fracture. She is also had frequent falls, has a leukocytosis of unclear etiology. We will admit to the hospitalist service for further workup. Time: 01:47 Vital Signs Temperature 99.8 F H 02/12/18 22:06 Pulse Rate 91 02/12/18 22:06 Respiratory Rate 16 02/12/18 22:06 Blood Pressure 156/95 02/12/18 22:06 O2 Sat by Pulse Oximetry 94 02/12/18 22:06 Temperature 99.8 F H 02/12/18 22:06 Pulse Rate 97 02/13/18 01:29 Respiratory Rate 16 02/13/18 01:29 Blood Pressure 142/83 02/13/18 01:29 O2 Sat by Pulse Oximetry 95 02/13/18 01:29 Oxygen Delivery Oxygen Delivery Room Air Medical Decision Making - Lab Data Result diagrams: 02/12/18 23:03 02/12/18 23:03 Lab Results 02/12/18 02/12/18 02/12/18 Range/Units 23:03 23:03 23:11 WBC 16.9 H (4.3-11.1) K/mcL RBC 3.28 L (3.82-4.97) M/mcL Hgb 10.6 L (11.5-15.4) g/dL Hct 32.0 L (35.3-44.9) % MCV 97.6 (83.0-100.0) fL MCH 32.3 (28.0-33.3) pg MCHC 33.1 (31.6-35.5) g/dL RDW 13.2 (11.5-14.5) % Plt Count 237 (140-400) K/mcL MPV 9.0 L (9.4-12.4) fL Immature Gran % 0.7 (0-4) % Seg Neutrophils % 74.9 % Lymphocytes % 13.1 % Monocytes % 11.1 % Eosinophils % 0.0 % Basophils % 0.2 % Neutrophils # 12.7 H (1.6-8.9) K/mcL Lymphocytes # 2.2 (0.6-4.6) K/mcL Monocytes # 1.9 H (0.0-1.3) K/mcL Eosinophils # 0.0 (0.0-0.6) K/mcL Basophils # 0.0 (0.0-0.2) K/mcL Sodium 127 L (136-145) mEq/L Potassium 4.2 (3.5-5.1) mEq/L Chloride 98 (98-107) mEq/L Carbon Dioxide 22 L (23-29) mEq/L BUN 23 (8-23) mg/dL Creatinine 0.94 (0.60-1.20) mg/dL Est GFR ( Amer) > 60 (> 60) Est GFR (Non-Af Amer) 57 L (> 60) BUN/Creatinine Ratio 24 (6-26) Glucose 123 H (70-105) mg/dL Calculated Osmolality 269 L (280-300) Calcium 9.4 (8.6-10.3) mg/dL Urine Color Yellow (Yellow) Urine Clarity Clear (Clear) Urine pH 5.5 (5.0-8.0) pH Units Ur Specific [place] 1.025 (1.010-1.025) Urine Protein 30 H (Neg-Trace) mg/dL Urine Glucose (UA) Normal (Normal) mg/dL Urine Ketones Negative (Negative) mg/dL Urine Blood Negative (Negative) Urine Nitrite Negative (Negative) Urine Bilirubin Negative (Negative) Urine Urobilinogen Normal (Normal) mg/dL Ur Leukocyte Esterase Negative (Negative) Urine Microscopic RBC 0-3 (0-3) per hpf Urine Microscopic WBC 0-3 (0-3) per hpf Ur Squamous Epith Cells Many H (None-Few) per lpf Urine Bacteria None Seen (None-Few) per hpf Hyaline Casts Few (None-Few) per lpf Ur Culture Indicated? NO (NO)
--- NOTE | 2018-02-13 02:48 | Emergency Department Note ---
Disposition Clinical Impression: Leukocytosis, Hyponatremia Fall Qualifiers: Encounter type: initial encounter Qualified Code(s): W19.XXXA - Unspecified fall, initial encounter Altered mental status Qualifiers: Altered mental status type: unspecified Qualified Code(s): R41.82 - Altered mental status, unspecified Disposition: Still a Patient Condition: Good Referrals: Megan Castro DO [Primary Care Provider] - Forms: ED Satisfaction Letter General Adult HPI - General Chief complaint: ED Fall Time Seen by Provider: 02/12/18 22:50 Source: patient, EMS Limitations: altered mental status Nursing Notes Reviewed: Yes Vital Signs Reviewed: Yes - History of Present Illness Pain Scale: 0 - Related Data Home Medications Medication Instructions Recorded Confirmed Loratadine [Claritin] 10 mg PO DAILY 10/12/16 12/14/17 Pantoprazole Sodium [Protonix] 40 mg PO DAILY 10/12/16 12/14/17 Aspirin 81 mg PO DAILY 12/01/16 12/14/17 Calcium Carbonate/Vitamin D3 1 each PO DAILY 12/01/16 12/14/17 [Calcium 500-Vit D3 200 Caplet] Multivitamin [Multi-Day Vitamins] 1 each PO DAILY 12/01/16 12/14/17 Metoprolol [Lopressor] 25 mg PO BID 11/04/17 12/14/17 Benzonatate 100 mg PO DAILY PRN 12/02/17 12/14/17 Guaifenesin [Mucinex] 600 mg PO BID PRN 12/02/17 12/14/17 Lactobacillus Acidophilus 1 tab PO BID 12/02/17 12/14/17 [Acidophilus] Previous Rx's Medication Instructions Recorded Losartan Potassium [Cozaar] 50 mg PO BID #60 tab 12/03/16 Pravastatin Sodium [Pravachol] 20 mg PO HS #30 tablet 12/03/16 Melatonin 3 mg PO HS tablet 11/09/17 ALPRAZolam [Xanax 0.5 MG Tablet] 0.5 mg PO BID PRN 1 Days #2 tablet 12/05/17 Calcium Carbonate [Tums] 1,000 mg PO TID tab.chew 12/05/17 Mupirocin [Bactroban Oint] 1 appl TP BID tube 12/05/17 ALPRAZolam [Xanax 0.5 MG Tablet] 0.5 mg PO BID PRN 5 Days #10 tablet 12/21/17 Docusate [Colace] 100 mg PO BID PRN capsule 12/21/17 Ferrous Sulfate 325 mg PO DAILY@0800 tablet 12/21/17 Gabapentin [Neurontin] 300 mg PO BID 14 Days #28 capsule 12/21/17 Sodium Chloride 1 gm PO TID #42 tablet 12/21/17 hydrALAZINE [HydrALAZINE] 25 mg PO Q8HR tablet 12/21/17 Allergies Allergy/AdvReac Type Severity Reaction Status Date / Time aspirin AdvReac See Verified 02/12/18 22:06 Comments Cardiovascular: Denies: chest pain Respiratory: Denies: dyspnea Gastrointestinal: Denies: abdominal pain Genitourinary: Denies: urgency, dysuria, frequency Musculoskeletal: Reports: other (Hip pain and neck pain) Past Medical History - Past Medical History Medical history: Reports: coronary artery disease, GERD, hypertension, myocardial infarction, renal disease, seizures Surgical history: Reports: appendectomy Psychiatric history: Reports: anxiety, depression - Social History Smoking Status: Never smoker Smokeless Tobacco Status: No Alcohol use: Reports: none Drug use: Reports: none Physical Exam - General Limitations: altered mental status General appearance: alert, in no apparent distress Course Vital Signs Temperature 99.8 F H 02/12/18 22:06 Pulse Rate 91 02/12/18 22:06 Respiratory Rate 16 02/12/18 22:06 Blood Pressure 156/95 02/12/18 22:06 O2 Sat by Pulse Oximetry 94 02/12/18 22:06 Temperature 99.8 F H 02/12/18 22:06 Pulse Rate 97 02/13/18 01:29 Respiratory Rate 16 02/13/18 01:29 Blood Pressure 142/83 02/13/18 01:29 O2 Sat by Pulse Oximetry 95 02/13/18 01:29 Oxygen Delivery Oxygen Delivery Room Air Medical Decision Making - Lab Data Result diagrams: 02/12/18 23:03 02/12/18 23:03 Lab Results 02/12/18 02/12/18 02/12/18 Range/Units 23:03 23:03 23:11 WBC 16.9 H (4.3-11.1) K/mcL RBC 3.28 L (3.82-4.97) M/mcL Hgb 10.6 L (11.5-15.4) g/dL Hct 32.0 L (35.3-44.9) % MCV 97.6 (83.0-100.0) fL MCH 32.3 (28.0-33.3) pg MCHC 33.1 (31.6-35.5) g/dL RDW 13.2 (11.5-14.5) % Plt Count 237 (140-400) K/mcL MPV 9.0 L (9.4-12.4) fL Immature Gran % 0.7 (0-4) % Seg Neutrophils % 74.9 % Lymphocytes % 13.1 % Monocytes % 11.1 % Eosinophils % 0.0 % Basophils % 0.2 % Neutrophils # 12.7 H (1.6-8.9) K/mcL Lymphocytes # 2.2 (0.6-4.6) K/mcL Monocytes # 1.9 H (0.0-1.3) K/mcL Eosinophils # 0.0 (0.0-0.6) K/mcL Basophils # 0.0 (0.0-0.2) K/mcL Sodium 127 L (136-145) mEq/L Potassium 4.2 (3.5-5.1) mEq/L Chloride 98 (98-107) mEq/L Carbon Dioxide 22 L (23-29) mEq/L BUN 23 (8-23) mg/dL Creatinine 0.94 (0.60-1.20) mg/dL Est GFR ( Amer) > 60 (> 60) Est GFR (Non-Af Amer) 57 L (> 60) BUN/Creatinine Ratio 24 (6-26) Glucose 123 H (70-105) mg/dL Calculated Osmolality 269 L (280-300) Calcium 9.4 (8.6-10.3) mg/dL Urine Color Yellow (Yellow) Urine Clarity Clear (Clear) Urine pH 5.5 (5.0-8.0) pH Units Ur Specific [place] 1.025 (1.010-1.025) Urine Protein 30 H (Neg-Trace) mg/dL Urine Glucose (UA) Normal (Normal) mg/dL Urine Ketones Negative (Negative) mg/dL Urine Blood Negative (Negative) Urine Nitrite Negative (Negative) Urine Bilirubin Negative (Negative) Urine Urobilinogen Normal (Normal) mg/dL Ur Leukocyte Esterase Negative (Negative) Urine Microscopic RBC 0-3 (0-3) per hpf Urine Microscopic WBC 0-3 (0-3) per hpf Ur Squamous Epith Cells Many H (None-Few) per lpf Urine Bacteria None Seen (None-Few) per hpf Hyaline Casts Few (None-Few) per lpf Ur Culture Indicated? NO (NO) Attestation Statement - Attestation Attestation: I, Alfredito Lutz MD, personally evaluated this patient and discussed their management with the resident physician. I reviewed the resident's note and agree with the documented findings, medical decision making, and plan of care. This patient was signed out at shift change from Dr. Ash and Dr. Kenyon. Please refer to their notes for complete details of history and physical examination. Patient is from a skilled nursing and had a fall. Apparently has some increased confusion from her baseline. At shift change she is awaiting CT results. Plan is admission for falls and increased confusion. On examination patient is a well-developed well-nourished elderly female in no acute distress. She is alert and oriented to person and place but not time. No cyanosis or diaphoresis. No scalp tenderness or hematomas palpable. Neck supple with limited range of motion. Minimal diffuse tenderness. Breath sounds are clear and equal bilaterally. Heart regular rate and rhythm. Abdomen soft and nontender with normal bowel sounds. No gross focal neurological deficits. Labs reviewed. Chest x-ray negative. CT of the hip and pelvis negative. CT of the head and cervical spine negative. CT of the thoracic spine did show an area of loss of vertebral height which could possibly be an acute compression fracture. The hospitalist, Dr. Hughes, was consulted and accepted admission of the patient.
[2018-02-13] MEDS ORDERED: Naloxone 0.4 MG/ML INJ IVP PRN (08:34)
--- NOTE | 2018-02-13 08:56 | Internal Med History&Physical ---
Date of Encounter: 02/13/18 Time of Encounter: 08:54 Internal Medicine - H&P: HPI Chief complaint: confusion History of present illness: Ms. Rolle is a 82 year old female history as below presents with confusion. Patient also she has been having increased falls. Patient continues to have pain surrounding the area of the rash which was diagnosed with herpes zoster. Patient notes yesterday while at the [facility] she may have kept on the lidocaine patch longer than prescribed. At this time patient denies headache, visual disturbance, neck pain or focal weakness. She denies abdominal pain, nausea vomiting. Denies dysuria, hematuria or diarrhea. She denies subjective fever or chills. At this time she notes cough nonproductive of sputum. Patient voices no other concerns. Patient to be admitted for further evaluation. Past Med Surg Social Fam HX - Past Medical History Medical history: coronary artery disease, GERD, hypertension, myocardial infarction, renal disease, seizures Psychiatric history: anxiety, depression - Past Surgical History Surgical History: appendectomy, hip replacement - Social History Smoking Status: Never smoker Smokeless Tobacco Status: No Alcohol use: none Drug use: none - Family History Mother Living Status: Hx Family Cancer: Yes (breast cancer) Father Living Status: Hx Family Cardiac Disorders: Yes (stroke) Hx Family Neuromuscular Disorders: Yes (CVA) Internal Medicine - H&P: Meds Loratadine [Claritin] 10 mg PO DAILY 10/12/16 [History] Pantoprazole Sodium [Protonix] 40 mg PO DAILY 10/12/16 [History] Aspirin 81 mg PO DAILY 12/01/16 [History] Calcium Carbonate/Vitamin D3 [Calcium 500-Vit D3 200 Caplet] 500 mg PO DAILY [History] Multivitamin [Multi-Day Vitamins] 1 each PO DAILY 12/01/16 [History] Losartan Potassium [Cozaar] 50 mg PO BID #60 tab 12/03/16 [Rx] Pravastatin Sodium [Pravachol] 20 mg PO HS #30 tablet 12/03/16 [Rx] Metoprolol [Lopressor] 25 mg PO BID 11/04/17 [History] Melatonin 3 mg PO HS tablet 11/09/17 [Rx] Benzonatate 100 mg PO DAILY PRN 12/02/17 [History] Guaifenesin [Mucinex] 600 mg PO BID PRN 12/02/17 [History] Lactobacillus Acidophilus [Acidophilus] 1 tab PO BID 12/02/17 [History] Calcium Carbonate [Tums] 1,000 mg PO TID tab.chew 12/05/17 [Rx] Docusate [Colace] 100 mg PO BID PRN capsule 12/21/17 [Rx] Gabapentin [Neurontin] 300 mg PO BID 14 Days #28 capsule 12/21/17 [Rx] Lidocaine Patch [Lidoderm 5% patch] 1 patch TD DAILY 02/13/18 [History] Sodium Chloride 1 gm PO BID 02/13/18 [History] Tramadol HCl [Ultram] 50 mg PO Q6HR PRN 02/13/18 [History] hydrALAZINE [HydrALAZINE] 50 mg PO Q8HR 02/13/18 [History] 3 Allergy/AdvReac Type Severity Reaction Status Date / Time aspirin AdvReac See Verified 02/12/18 22:06 Comments All Systems PM: A 10-system review of systems was performed and is negative for pertinent findings except as documented above in the HPI. Review of systems: All systems reviewed and negative except as mentioned in history of present illness - Constitutional Vitals: Temp Pulse Resp BP Pulse Ox 99.5 F 96 17 145/92 95 02/13/18 07:51 02/13/18 07:51 02/13/18 07:51 02/13/18 07:51 02/13/18 07:51 Vital signs as above Gen.: No apparent distress, cooperative, able to speak in full sentences HEENT: Atraumatic, normocephalic, extra movements are intact, PERRL is no scleral icterus Neck: There is no JVD, no pain to palpation, there is full range of motion of his time, there is no signs of meningismus, she denies pain with extension, no pain with flexion Heart: Normal S1-S2, regular rate and rhythm Lungs: Clear to auscultation Abdomen: Soft, depressible, nontender, nondistended, positive bowel sounds, no guarding, no rigidity Musculoskeletal: Patient able to move all 4 extremities freely, pinna palpation of large joints Skin: Patient has dermatomal rash across right upper chest right upper back, erythema, some warmth, pinna palpation around the site, all crusted lesion noted , currently do not visualize any vesicles Neuro: Patient is nonfocal, cranial nerves are intact, patient actually alert and orientated 3, knows the year, notes time of day, knows the hospital name, oriented to person. Strength appears to be equal upper and lower extremities Psychiatry: Normal affect Internal Med - H&P Results - Labs CBC & Chem 7: 02/13/18 08:49 02/13/18 20:13 - Assessment and plan (1) Altered mental status Current Visit: Yes Status: Acute Assessment and plan: Etiology to be determined, improving at this time. Patient has had multiple admissions altered mental status, multiple falls At this time upon my examination patient is alert and oriented 3 CT brain negative for acute intracranial process Patient tells me that yesterday she forgot to remove the lidocaine patch, which remained on over extended amount of time. Lidocaine patch left on over an extended amount of time can cause confusion as well At this time patient denies neck pain. At this time cannot elicit any pain with flexion or extension of the neck. At this time no signs of meningismus Serum sodium was approximately 127. Patient has history of hyponatremia. We will repeat serum sodium now. Patient with history of herpes zoster now with postherpetic neuralgia. Rash appears to be erythematous, warm to touch, possible superimposed cellulitis. Also complains of new non productive cough , CXR no PNA, eval for viral syndrome , check CT chest rule out PNA Remove lidocaine patch Empiric parenteral antibiotics, superimposed cellulitic changes over post- herpetic rash, at this time do not visual new vesicles. Rash will need to be reassessed daily. Check respiratory viral panel Obtain CT chest Qualifiers: Altered mental status type: unspecified Qualified Code(s): R41.82 - Altered mental status, unspecified (2) Hyponatremia Current Visit: Yes Status: Acute Assessment and plan: Serum sodium 127 Patient has history of hyponatremia Repeat serum sodium now, serum osmole, urine osmole (3) Leukocytosis Current Visit: Yes Status: Acute Assessment and plan: Patient was erythema, warmth over previous herpes zoster rash We will treat empirically for superimpose significant changes At this time cannot visualize any vesicles. Rash will need to be visualized daily Qualifiers: Qualified Code(s): D72.829 - Elevated white blood cell count, unspecified (4) Shingles Current Visit: No Status: Acute Qualifiers: Herpes zoster complications: without complications Qualified Code(s): B02.9 - Zoster without complications (5) DVT prophylaxis Current Visit: Yes Status: Acute Assessment and plan: SCD's , Heparin SC I discussed with the son today the patient's current diagnosis and ongoing care. Son notes great improvements in his mother. Social notes her mental status appears to be back at baseline. Discussed pain management. Patient does not do well with narcotics. At this time son does not want to try any narcotics or tramadol. Decision made to start Tylenol #3. Son agrees with plan. Son appreciates care given. - Time Spent With Patient Total time spent is greater than 50% in coordination of care (as documented) at patient's floor/unit and/or counseling patient:
[2018-02-13 09:02] LABS: Basophils % 0.2 %; Eosinophils % 0.1 %; Hematocrit 30.4 % (35.3-44.9); Hemoglobin 10.1 g/dL (11.5-15.4); Immature Granulocytes % 0.5 % (0-4); Lymphocytes # 2.2 K/mcL (0.6-4.6); Lymphocytes % 16.9 %; Mean Corpuscular HGB Conc 33.2 g/dL (31.6-35.5); Mean Corpuscular Hemoglobin 32.4 pg (28.0-33.3); Mean Corpuscular Volume 97.4 fL (83.0-100.0); Mean Platelet Volume 9.3 fL (9.4-12.4); Monocytes # 1.6 K/mcL (0.0-1.3); Monocytes % 12.3 %; Platelet Count 216 K/mcL (140-400); Red Blood Count 3.12 M/mcL (3.82-4.97); Red Cell Distribution Width 13.2 % (11.5-14.5)
[2018-02-13 09:34] LABS: Alanine Aminotransferase 12 Units/L (7-52); Albumin 3.4 g/dL (3.5-5.7); Albumin/Globulin Ratio 1.4 (1.1-2.2); Alkaline Phosphatase 77 Units/L (34-104); Aspartate Amino Transferase 18 Units/L (13-39); BUN/Creatinine Ratio 22 (6-26); Bilirubin,Total 0.7 mg/dL (0.3-1.0); Blood Urea Nitrogen 21 mg/dL (8-23); Calcium 9.5 mg/dL (8.6-10.3); Carbon Dioxide 25 mEq/L (23-29); Chloride 98 mEq/L (98-107); Globulin 2.4 g/dL (2.4-3.5); Glucose 115 mg/dL (70-105); Osmolality,Calculated 272 (280-300); Sodium 129 mEq/L (136-145); Total Protein 5.8 g/dL (6.4-8.9); eGFR For African Americans > 60 (> 60); eGFR For Non-African Americans 57 (> 60)
[2018-02-13] MEDS ORDERED: Benzonatate 100 MG CAPSULE PO PRN (10:17)
[2018-02-13] MEDS ORDERED: Acetaminophen 325 MG TABLET PO PRN (10:21)
[2018-02-13] MEDS: Doxycycline 100 MG CAPSULE PO SCH ×2 (10:33→23:29)
[2018-02-13] MEDS ORDERED: cefTRIAXone 2,000 MG in Water for inj. (sterile) 20 ML IVP SCH (11:00)
[2018-02-13 11:32] LABS: Bilirubin,Urine Negative (Negative); Blood,Urine Negative (Negative); Clarity,Urine Clear (Clear); Color,Urine Yellow (Yellow); Glucose,Urine (UA) Normal (Normal); Ketones,Urine Negative (Negative); Leukocyte Esterase,Urine Negative (Negative); Nitrite,Urine Negative (Negative); Protein,Urine 30 mg/dL (Neg-Trace); Specific Gravity,Urine 1.022 (1.010-1.025); Urobilinogen,Urine Normal (Normal)
[2018-02-13 11:35] LABS: Bacteria,Urine None Seen per hpf (None-Few); Hyaline Casts,Urine None Seen per lpf (None-Few); Squamous Epithelial Cell,Urine Few per lpf (None-Few); WBC,Urine 0-3 per hpf (0-3)
[2018-02-13] MEDS ORDERED: Albuterol 2.5 MG/3 ML NEBULIZER IH PRN (13:28)
[2018-02-13] MEDS: *HR* Acetaminophen w/Cod 300-30 mg 1 TAB TABLET PO PRN ×2 (17:40→23:29)
[2018-02-13] MEDS ORDERED: cefTRIAXone 2,000 MG in Water for inj. (sterile) 20 ML 20 ML IVPB SCH (18:00)
[2018-02-13 18:09] LABS: Adenovirus Not Detected (Not Detect); Bordetella Pertussis Not Detected (Not Detect); Chlamydophila pneumoniae Not Detected (Not Detect); Coronavirus 229E Not Detected (Not Detect); Coronavirus HKU1 Not Detected (Not Detect); Coronavirus NL63 Not Detected (Not Detect); Coronavirus OC43 Not Detected (Not Detect); Human Metapneumovirus Not Detected (Not Detect); Human Rhinovirus/Enterovirus Not Detected (Not Detect); Influenza A Subtype 2009 H1 Not Detected (Not Detect); Influenza A Untypeable Not Detected (Not Detect); Influenza B Not Detected (Not Detect); Mycoplasma pneumoniae Not Detected (Not Detect); Parainfluenza Virus 1 Not Detected (Not Detect); Parainfluenza Virus 2 Not Detected (Not Detect); Parainfluenza Virus 3 Not Detected (Not Detect); Parainfluenza Virus 4 Not Detected (Not Detect); Respiratory Syncytial Virus Not Detected (Not Detect)
[2018-02-13] MEDS: Gabapentin 300 MG CAPSULE PO SCH (19:35)
[2018-02-13 20:44] LABS: Troponin I 0.03 ng/mL (< 0.04)
[2018-02-14] MEDS: cefTRIAXone 2,000 MG in Water for inj. (sterile) 20 ML 20 ML IVP SCH ×2 (05:02→16:33)
[2018-02-14] MEDS: *HR* Acetaminophen w/Cod 300-30 mg 1 TAB TABLET PO PRN ×4 (05:03→23:29)
[2018-02-14] MEDS: *HR* Heparin 5,000 UNIT/ML VIAL SQ SCH ×3 (05:03→19:47)
[2018-02-14] MEDS ORDERED: CefTRIAXone 2,000 MG VIAL ONE (05:08)
[2018-02-14 05:52] LABS: Basophils % 0.3 %; Eosinophils # 0.1 K/mcL (0.0-0.6); Eosinophils % 0.7 %; Hematocrit 31.4 % (35.3-44.9); Hemoglobin 10.4 g/dL (11.5-15.4); Immature Granulocytes % 0.6 % (0-4); Lymphocytes # 2.3 K/mcL (0.6-4.6); Lymphocytes % 19.9 %; Mean Corpuscular HGB Conc 33.1 g/dL (31.6-35.5); Mean Corpuscular Hemoglobin 32.2 pg (28.0-33.3); Mean Corpuscular Volume 97.2 fL (83.0-100.0); Mean Platelet Volume 9.9 fL (9.4-12.4); Monocytes # 1.4 K/mcL (0.0-1.3); Monocytes % 12.1 %; Neutrophils # 7.7 K/mcL (1.6-8.9); Nucleated Red Blood Cells 0.2 /100 WBC (0); Platelet Count 232 K/mcL (140-400); Red Blood Count 3.23 M/mcL (3.82-4.97); Segmented Neutrophils % 66.4 %
[2018-02-14 05:58] LABS: INR 1.1; Prothrombin Time 12.2 Seconds (9.4-12.1)
[2018-02-14 06:15] LABS: Alanine Aminotransferase 13 Units/L (7-52); Albumin 3.3 g/dL (3.5-5.7); Albumin/Globulin Ratio 1.2 (1.1-2.2); Alkaline Phosphatase 76 Units/L (34-104); Aspartate Amino Transferase 19 Units/L (13-39); BUN/Creatinine Ratio 23 (6-26); Bilirubin,Total 0.4 mg/dL (0.3-1.0); Blood Urea Nitrogen 19 mg/dL (8-23); Calcium 9.3 mg/dL (8.6-10.3); Carbon Dioxide 25 mEq/L (23-29); Chloride 99 mEq/L (98-107); Chol/HDL Ratio 1.7 (0-4.9); Cholesterol 109 mg/dL (< 200); Globulin 2.7 g/dL (2.4-3.5); Glucose 99 mg/dL (70-105); HDL Cholesterol 64 mg/dL (40-59); LDL Cholesterol,Calculated 35 mg/dL (0-99); Magnesium 1.7 mg/dL (1.6-2.6); Osmolality,Calculated 274 (280-300); Potassium 3.9 mEq/L (3.5-5.1); Sodium 131 mEq/L (136-145); Triglycerides 52 mg/dL (< 150); eGFR For African Americans > 60 (> 60); eGFR For Non-African Americans > 60 (> 60)
[2018-02-14] MEDS: Gabapentin 300 MG CAPSULE PO SCH ×2 (09:49→19:48)
[2018-02-14] MEDS: Doxycycline 100 MG CAPSULE PO SCH ×2 (09:49→19:48)
[2018-02-14] MEDS: hydrALAZINE 25 MG TABLET PO SCH ×3 (09:51→23:29)
--- NOTE | 2018-02-14 09:51 | Internal Med Progress Note ---
Date of Encounter: 02/14/18 Time of Encounter: 09:47 - Assessment and plan (1) Hyponatremia Current Visit: Yes Status: Acute Assessment and plan: Possibly secondary to SIADH Fluid restriction Continue salt tablets Serum sodium was 127 (2) Altered mental status Current Visit: Yes Status: Acute Assessment and plan: Acute metabolic encephalopathy secondary to possible healthcare associated pneumonia present upon admission, plus minimal area of cellulitis in the right breast Improving on Rocephin and doxycycline day #2, we will escalate antibiotic therapy the patient is not improving At this time upon my examination patient is alert and oriented 3 CT brain negative for acute intracranial process CT chest showed:1. Compared to 2014, new finding of right lower lobe posterior basal ground-glass attenuation, pleural-parenchymal thick and thin bandlike densities and septal thickening along with some irregular pleural thickening. Findings probably combination chronic changes and acute pneumonitis. 2. Stable appearing 4.1 cm right adrenal myelolipoma. Qualifiers: Altered mental status type: unspecified Qualified Code(s): R41.82 - Altered mental status, unspecified (3) Shingles Current Visit: No Status: Acute Assessment and plan: Received Valtrex in the past Qualifiers: Herpes zoster complications: without complications Qualified Code(s): B02.9 - Zoster without complications (4) Leukocytosis Current Visit: Yes Status: Acute Assessment and plan: Patient was erythema, warmth over previous herpes zoster rash We will treat empirically for superimpose significant changes At this time cannot visualize any vesicles. Rash will need to be visualized daily Qualifiers: Qualified Code(s): D72.829 - Elevated white blood cell count, unspecified (5) Accelerated hypertension Current Visit: Yes Status: Acute Assessment and plan: Resume losartan and hydralazine Continue metoprolol - Time Spent With Patient Total time spent is greater than 50% in coordination of care (as documented) at patient's floor/unit and/or counseling patient: - Subjective Interval history: The patient does not remember/recall anything about what happened last night, denies any chest pain at the moment has minimal pain on the right breast due to shingles that is improving, denies any shortness of breath, no abdominal pain no diarrhea or dysuria - Constitutional Vitals: Temp Pulse Resp BP Pulse Ox 98.4 F 94 16 156/82 95 02/14/18 07:22 02/14/18 07:22 02/14/18 07:22 02/14/18 07:22 02/14/18 07:22 General appearance: Present: A&O X 3 Exam: Forgetful at times - Head Head exam: Present: atraumatic, normocephalic - Eye Eye exam: Present: PERRL, conjuntiva pink, sclera anicteric Pupils: Present: PERRL - Neck Neck exam general surgery: Present: supple, trachea midline. Absent: lymphadenopathy - Respiratory Respiratory exam: Present: CTAB. Absent: accessory muscle use, rales, rhonchi, wheezes - Cardiovascular Cardiovascular exam: Present: RRR, +S1, +S2. Absent: diastolic murmur, gallop, rubs, systolic murmur - GI/Abdominal GI/Abdominal exam: Present: normal bowel sounds, soft, no peritoneal signs. Absent: distended, tenderness - Extremities Exam Extremities exam: Present: warm, radial pulses palpable and symmetrical. Absent : calf tenderness, cyanotic, pedal edema - Neurological Exam Neurological exam: Present: CN II-XII intact, oriented X3, no focal deficits. Absent: pronater drift, facial droop, speech deficit - Skin Skin exam: Present: dry, erythema (Minimal erythema underneath the right breast due to prior shingles), intact Internal Medicine: Result - Labs CBC & Chem 7: 02/14/18 05:00 02/14/18 05:00 Labs: Short CBC 02/14/18 Range/Units 05:00 WBC 11.7 H (4.3-11.1) K/mcL Hgb 10.4 L (11.5-15.4) g/dL Hct 31.4 L (35.3-44.9) % Plt Count 232 (140-400) K/mcL Neutrophils # 7.7 (1.6-8.9) K/mcL BMP 02/13/18 02/13/18 02/14/18 14:39 20:13 05:00 Sodium 130 L 131 L 131 L Potassium 3.9 Chloride 99 Carbon Dioxide 25 BUN 19 Creatinine 0.81 Glucose 99 Calcium 9.3 Cardiac Enzymes 02/13/18 02/13/18 Range/Units 14:39 20:13 Troponin I 0.03 0.03 (< 0.04) ng/mL Liver Function 02/14/18 Range/Units 05:00 Total Bilirubin 0.4 (0.3-1.0) mg/dL AST 19 (13-39) Units/L ALT 13 (7-52) Units/L Alkaline Phosphatase 76 (34-104) Units/L Albumin 3.3 L (3.5-5.7) g/dL - ABG Interpretation ABG results: PT/INR, D-dimer PT 12.2 Seconds (9.4-12.1) H 02/14/18 05:00 Consult Discharge Plan - Plan Referrals: Megan Castro DO [Primary Care Provider] -
[2018-02-14] MEDS ORDERED: Lactulose Oral Soln 20 GM/30 ML UDC PO SCH (13:45)
[2018-02-15 01:44] LABS: BUN/Creatinine Ratio 21 (6-26); Blood Urea Nitrogen 21 mg/dL (8-23); Carbon Dioxide 27 mEq/L (23-29); Chloride 101 mEq/L (98-107); Glucose 98 mg/dL (70-105); Osmolality,Calculated 279 (280-300); Potassium 4.1 mEq/L (3.5-5.1); Sodium 133 mEq/L (136-145); eGFR For African Americans > 60 (> 60); eGFR For Non-African Americans 54 (> 60)
[2018-02-15] MEDS: cefTRIAXone 2,000 MG in Water for inj. (sterile) 20 ML 20 ML IVP SCH ×2 (05:28→18:55)
[2018-02-15] MEDS: *HR* Heparin 5,000 UNIT/ML VIAL SQ SCH ×3 (05:29→20:45)
[2018-02-15] MEDS: *HR* Acetaminophen w/Cod 300-30 mg 1 TAB TABLET PO PRN ×3 (05:29→20:43)
[2018-02-15] MEDS: hydrALAZINE 25 MG TABLET PO SCH ×2 (07:29→16:35)
[2018-02-15] MEDS: Gabapentin 300 MG CAPSULE PO SCH ×2 (07:29→20:43)
[2018-02-15] MEDS: Doxycycline 100 MG CAPSULE PO SCH ×2 (07:29→20:43)
[2018-02-15] MEDS: Aspirin 81 MG TAB.CHEW PO SCH (07:29)
--- NOTE | 2018-02-15 08:54 | Internal Med Progress Note ---
Date of Encounter: 02/15/18 Time of Encounter: 08:52 - Assessment and plan (1) Altered mental status Current Visit: Yes Status: Acute Assessment and plan: Acute metabolic encephalopathy secondary to possible healthcare associated pneumonia present upon admission, plus minimal area of cellulitis in the right breast Improving on Rocephin and doxycycline day #3, we will escalate antibiotic therapy the patient is not improving At this time upon my examination patient is alert and oriented 3 CT brain negative for acute intracranial process CT chest showed:1. Compared to 2014, new finding of right lower lobe posterior basal ground-glass attenuation, pleural-parenchymal thick and thin bandlike densities and septal thickening along with some irregular pleural thickening. Findings probably combination chronic changes and acute pneumonitis. 2. Stable appearing 4.1 cm right adrenal myelolipoma. Qualifiers: Altered mental status type: unspecified Qualified Code(s): R41.82 - Altered mental status, unspecified (2) Hyponatremia Current Visit: Yes Status: Acute Assessment and plan: Possibly secondary to SIADH Fluid restriction Continue salt tablets Serum sodium was 127 (3) Shingles Current Visit: No Status: Acute Assessment and plan: Received Valtrex in the past Qualifiers: Herpes zoster complications: without complications Qualified Code(s): B02.9 - Zoster without complications (4) Leukocytosis Current Visit: Yes Status: Acute Assessment and plan: Patient was erythema, warmth over previous herpes zoster rash We will treat empirically for superimpose significant changes At this time cannot visualize any vesicles. Rash will need to be visualized daily Qualifiers: Qualified Code(s): D72.829 - Elevated white blood cell count, unspecified (5) Accelerated hypertension Current Visit: Yes Status: Acute Assessment and plan: Improved after resuming losartan and hydralazine Continue metoprolol - Time Spent With Patient Total time spent is greater than 50% in coordination of care (as documented) at patient's floor/unit and/or counseling patient: - Subjective Interval history: Still complaining of pain where she had the shingles. Does not feel ready to be discharged yet. Feels very weak. The patient does not remember/recall anything about what happened during the night of admission, denies any chest pain at the moment has minimal pain on the right breast due to shingles that is improving, denies any shortness of breath, no abdominal pain no diarrhea or dysuria - Constitutional Vitals: Temp Pulse Resp BP Pulse Ox 98.3 F 86 18 144/83 95 02/15/18 06:50 02/15/18 06:50 02/15/18 06:50 02/15/18 06:50 02/15/18 07:38 General appearance: Present: A&O X 3 Exam: Forgetful at times - Head Head exam: Present: atraumatic, normocephalic - Eye Eye exam: Present: PERRL, conjuntiva pink, sclera anicteric Pupils: Present: PERRL - Neck Neck exam general surgery: Present: supple, trachea midline. Absent: lymphadenopathy - Respiratory Respiratory exam: Present: CTAB. Absent: accessory muscle use, rales, rhonchi, wheezes - Cardiovascular Cardiovascular exam: Present: RRR, +S1, +S2. Absent: diastolic murmur, gallop, rubs, systolic murmur - GI/Abdominal GI/Abdominal exam: Present: normal bowel sounds, soft, no peritoneal signs. Absent: distended, tenderness - Extremities Exam Extremities exam: Present: warm, radial pulses palpable and symmetrical. Absent : calf tenderness, cyanotic, pedal edema - Neurological Exam Neurological exam: Present: CN II-XII intact, oriented X3, no focal deficits. Absent: pronater drift, facial droop, speech deficit - Skin Skin exam: Present: dry, erythema (Minimal erythema underneath the right breast due to prior shingles), intact Internal Medicine: Result - Labs CBC & Chem 7: 02/14/18 05:00 02/15/18 01:12 Labs: BMP 02/15/18 01:12 Sodium 133 L Potassium 4.1 Chloride 101 Carbon Dioxide 27 BUN 21 Creatinine 0.99 Glucose 98 Calcium 9.0 - ABG Interpretation ABG results: PT/INR, D-dimer PT 12.2 Seconds (9.4-12.1) H 02/14/18 05:00 Consult Discharge Plan - Plan Referrals: Megan Castro DO [Primary Care Provider] -
[2018-02-16] MEDS: hydrALAZINE 25 MG TABLET PO SCH ×2 (00:04→08:37)
[2018-02-16 01:50] LABS: Hemoglobin 9.7 g/dL (11.5-15.4); Mean Corpuscular HGB Conc 32.3 g/dL (31.6-35.5); Mean Corpuscular Hemoglobin 31.8 pg (28.0-33.3); Mean Corpuscular Volume 98.4 fL (83.0-100.0); Mean Platelet Volume 9.2 fL (9.4-12.4); Platelet Count 297 K/mcL (140-400); Red Blood Count 3.05 M/mcL (3.82-4.97); Red Cell Distribution Width 12.9 % (11.5-14.5)
[2018-02-16 02:07] LABS: BUN/Creatinine Ratio 24 (6-26); Blood Urea Nitrogen 22 mg/dL (8-23); Calcium 9.2 mg/dL (8.6-10.3); Carbon Dioxide 25 mEq/L (23-29); Chloride 100 mEq/L (98-107); Glucose 102 mg/dL (70-105); Osmolality,Calculated 276 (280-300); Potassium 4.3 mEq/L (3.5-5.1); Sodium 131 mEq/L (136-145); eGFR For African Americans > 60 (> 60); eGFR For Non-African Americans 58 (> 60)
[2018-02-16] MEDS: *HR* Acetaminophen w/Cod 300-30 mg 1 TAB TABLET PO PRN ×2 (03:53→14:17)
[2018-02-16] MEDS: *HR* Heparin 5,000 UNIT/ML VIAL SQ SCH ×2 (06:34→13:32)
[2018-02-16] MEDS: cefTRIAXone 2,000 MG in Water for inj. (sterile) 20 ML 20 ML IVP SCH (06:34)
[2018-02-16] MEDS: Gabapentin 300 MG CAPSULE PO SCH (08:37)
[2018-02-16] MEDS: Doxycycline 100 MG CAPSULE PO SCH (08:37)
[2018-02-16] MEDS: Aspirin 81 MG TAB.CHEW PO SCH (08:37)
[2018-02-16 11:09] VITALS: BP 136/85
--- NOTE | 2018-02-16 14:58 | Discharge Summary ---
- NOTES TO OUTPATIENT PROVIDER Notes to Outpatient Provider: Monitor Na levels Date of Encounter: 02/16/18 Time of Encounter: 14:57 - Discharge Diagnosis (1) Hyponatremia Priority: Primary Status: Chronic (2) Altered mental status Priority: Primary Status: Resolved Qualifiers: Altered mental status type: unspecified Qualified Code(s): R41.82 - Altered mental status, unspecified (3) Shingles Priority: Secondary Status: Chronic Qualifiers: Herpes zoster complications: without complications Qualified Code(s): B02.9 - Zoster without complications (4) CAD (coronary artery disease) Priority: Secondary Status: Chronic Qualifiers: Coronary Disease-Associated Artery/Lesion type: viejas artery [place] vs. transplanted heart: viejas heart Associated angina: without angina Qualified Code(s): I25.10 - Atherosclerotic heart disease of viejas coronary artery without angina pectoris (5) CKD (chronic kidney disease), stage III Priority: Secondary Status: Chronic (6) Anxiety and depression Priority: Secondary Status: Chronic (7) Essential hypertension Priority: Secondary Status: Chronic Hospital course: Ms. Rolle is a 82 year old female fdc resident with the above medical problems, who was initially admitted with mild confusion and altered mental status. CT head was negative for acute process. Confusion and lethargy thought to be due to wearing lidocaine patch for an extended period of time. She has history of herpes zoster with postherpetic neuralgia, with slight cellulitis surrounding the rash over the right breast. She was treated with pain control and IV antibiotics and this has improved. CT chest showed possible right lower lobe pneumonia, patient completed antibiotics. Blood cultures, urine Legionella antigen remain negative. She had mild leukocytosis at admission, which is now resolved. Patient has acute on chronic hyponatremia, noted to be on salt tablets, serum sodium improved to 131 today. She has chronic complaints of back pain, generalized weakness and fatigue. Patient does not particularly want to be discharged back to [facility], however she has no acute illness warranting hospitalization at this time. This has been explained to her, she is agreeable for discharge at this time. Discharge discussed with: patient - Time Spent with Patient Total time spent providing and/or coordinating discharge services: Greater than 30 minutes (40 min) - Discharge Medications Prescriptions: Cefdinir [Omnicef] 300 mg PO BID #8 capsule Home Medications: Loratadine [Claritin] 10 mg PO DAILY 10/12/16 [History] Pantoprazole Sodium [Protonix] 40 mg PO DAILY 10/12/16 [History] Aspirin 81 mg PO DAILY 12/01/16 [History] Calcium Carbonate/Vitamin D3 [Calcium 500-Vit D3 200 Caplet] 500 mg PO DAILY [History] Multivitamin [Multi-Day Vitamins] 1 each PO DAILY 12/01/16 [History] Losartan Potassium [Cozaar] 50 mg PO BID #60 tab 12/03/16 [Rx] Pravastatin Sodium [Pravachol] 20 mg PO HS #30 tablet 12/03/16 [Rx] Metoprolol [Lopressor] 25 mg PO BID 11/04/17 [History] Melatonin 3 mg PO HS tablet 11/09/17 [Rx] Benzonatate 100 mg PO DAILY PRN 12/02/17 [History] Guaifenesin [Mucinex] 600 mg PO BID PRN 12/02/17 [History] Lactobacillus Acidophilus [Acidophilus] 1 tab PO BID 12/02/17 [History] Calcium Carbonate [Tums] 1,000 mg PO TID tab.chew 12/05/17 [Rx] Docusate [Colace] 100 mg PO BID PRN capsule 12/21/17 [Rx] Lidocaine Patch [Lidoderm 5% patch] 1 patch TD DAILY 02/13/18 [History] Sodium Chloride 1 gm PO BID 02/13/18 [History] hydrALAZINE [HydrALAZINE] 50 mg PO Q8HR 02/13/18 [History] Cefdinir [Omnicef] 300 mg PO BID #8 capsule 02/16/18 [Rx] Doxycycline 100 mg PO BID #0 capsule 02/16/18 [Rx] Gabapentin [Neurontin] 300 mg PO BID 5 Days #10 capsule 02/16/18 [Rx] Tramadol HCl [Ultram] 50 mg PO Q6HR PRN 4 Days #10 02/16/18 [Rx] Allergies/Adverse Reactions: 3 Allergy/AdvReac Type Severity Reaction Status Date / Time aspirin AdvReac See Verified 02/12/18 22:06 Comments Date of admission: 02/13/18 14:08 Primary care physician: eMgan Castro DO Consults: 02/14/18 09:44 Consult to Occupational Therapy [CONS] Routine Comment: Evaluate, develop and implement POC Reason for Consult: eval Does patient have active BEDREST order?: No Is patient medically & hemodynamically stable?: Yes Patient assessed for mobility or mobilized this visit?: Yes Consult to Physical Therapy [CONS] Routine Comment: Evaluate, develop and implement POC Reason for Consult: eval Does patient have active BEDREST order?: No Is patient medically & hemodynamically stable?: Yes Patient assessed for mobility or mobilized this visit?: Yes 02/15/18 11:11 Consult to Head Of Transport Logistics [CONS] Stat Reason for SW Consult: d/c planning Discharging clinician: Elena Ryan Anticipated date of discharge: 02/16/18 - Constitutional Vitals: Temp Pulse Resp BP Pulse Ox 98.6 F 80 16 136/85 96 02/16/18 10:51 02/16/18 10:51 02/16/18 10:51 02/16/18 10:51 02/16/18 10:51 General appearance: Present: A&O X 3, answers questions appropriately - Cardiovascular Cardiovascular exam: Present: RRR, +S1, +S2, systolic murmur. Absent: diastolic murmur, gallop, rubs - Patient Status Disposition: Transfer SNF Condition: Fair Functional capacity at discharge: bed bound Overall status at discharge: patient is progressing back to baseline - Discharge Instructions Follow Up With: Megan Castro DO [Primary Care Provider] - (Traditions to schedule ) Additional Instructions: Take medications as prescribed. Schedule follow-up appointment for 7-10 days with PCP. If symptoms return, go to ED. - Diet and Activity Activity: as per physical therapy Diet: low fat, low cholesterol, low salt diet
--- NOTE | 2018-02-16 15:09 | Physician Discharge Referral ---
ExtendedCare Referral Info Transfer To: [facility] Provider in Charge: Elena Ryan Provider in Charge after Transfer: PCP Institutional Level of Care: Skilled - Diagnosis (1) Hyponatremia Priority: Primary Status: Chronic (2) Altered mental status Priority: Primary Status: Resolved (3) Shingles Priority: Secondary Status: Chronic (4) CAD (coronary artery disease) Priority: Secondary Status: Chronic (5) CKD (chronic kidney disease), stage III Priority: Secondary Status: Chronic (6) Anxiety and depression Priority: Secondary Status: Chronic (7) Essential hypertension Priority: Secondary Status: Chronic Prognosis: Fair Aware of Diagnosis: Patient Aware of Prognosis: Patient - Transfer Medications Prescriptions: Cefdinir [Omnicef] 300 mg PO BID #8 capsule Home Medications: Loratadine [Claritin] 10 mg PO DAILY 10/12/16 [History] Pantoprazole Sodium [Protonix] 40 mg PO DAILY 10/12/16 [History] Aspirin 81 mg PO DAILY 12/01/16 [History] Calcium Carbonate/Vitamin D3 [Calcium 500-Vit D3 200 Caplet] 500 mg PO DAILY [History] Multivitamin [Multi-Day Vitamins] 1 each PO DAILY 12/01/16 [History] Losartan Potassium [Cozaar] 50 mg PO BID #60 tab 12/03/16 [Rx] Pravastatin Sodium [Pravachol] 20 mg PO HS #30 tablet 12/03/16 [Rx] Metoprolol [Lopressor] 25 mg PO BID 11/04/17 [History] Melatonin 3 mg PO HS tablet 11/09/17 [Rx] Benzonatate 100 mg PO DAILY PRN 12/02/17 [History] Guaifenesin [Mucinex] 600 mg PO BID PRN 12/02/17 [History] Lactobacillus Acidophilus [Acidophilus] 1 tab PO BID 12/02/17 [History] Calcium Carbonate [Tums] 1,000 mg PO TID tab.chew 12/05/17 [Rx] Docusate [Colace] 100 mg PO BID PRN capsule 12/21/17 [Rx] Lidocaine Patch [Lidoderm 5% patch] 1 patch TD DAILY 02/13/18 [History] Sodium Chloride 1 gm PO BID 02/13/18 [History] hydrALAZINE [HydrALAZINE] 50 mg PO Q8HR 02/13/18 [History] Cefdinir [Omnicef] 300 mg PO BID #8 capsule 02/16/18 [Rx] Doxycycline 100 mg PO BID #0 capsule 02/16/18 [Rx] Gabapentin [Neurontin] 300 mg PO BID 5 Days #10 capsule 02/16/18 [Rx] Tramadol HCl [Ultram] 50 mg PO Q6HR PRN 4 Days #10 02/16/18 [Rx] Allergies/Adverse Reactions: 3 Allergy/AdvReac Type Severity Reaction Status Date / Time aspirin AdvReac See Verified 02/12/18 22:06 Comments - Respiratory Orders Smoking Cessation: Smoking cessation has been advised. For more information, call the [place] Tobacco Quit Line at 4-412-DPFINOW. - Advance Directives Code Status: Full Code - Mobility Orders Ambulate - Rehabiliation Orders Rehab Potential: Fair Rehab Orders: ROM Exercises, Evaluation for Physical Therapy, Evaluation for Occupational Therapy - Diet Orders Renal, Cardiac CERTIFICATION: I certify that the transfer of the above named patient to an Extended Care Facility is necessary for the continuing treatment of the diagnosis listed. The above information is true and accurate reflection of patient's current condition. Confidential - Redisclosure prohibited without a patient's written consent.
--- NOTE | 2018-02-19 09:04 | Electrocardiograph Report ---
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
--- NOTE | 2018-02-27 14:18 | Emergency Department Note ---
Disposition Clinical Impression: Altered mental status, Hyponatremia Fall Qualifiers: Encounter type: initial encounter Qualified Code(s): W19.XXXA - Unspecified fall, initial encounter Leukocytosis Qualifiers: Qualified Code(s): D72.829 - Disposition: Still a Patient Condition: Fair General Adult HPI - General Chief complaint: ED Fall Time Seen by Provider: 02/12/18 22:50 Source: patient, EMS Limitations: altered mental status - History of Present Illness Pain Scale: 3 - Related Data Home Medications Medication Instructions Recorded Confirmed Loratadine [Claritin] 10 mg PO DAILY 10/12/16 02/13/18 Pantoprazole Sodium [Protonix] 40 mg PO DAILY 10/12/16 02/13/18 Aspirin 81 mg PO DAILY 12/01/16 02/13/18 Calcium Carbonate/Vitamin D3 500 mg PO DAILY 12/01/16 02/13/18 [Calcium 500-Vit D3 200 Caplet] Multivitamin [Multi-Day Vitamins] 1 each PO DAILY 12/01/16 02/13/18 Metoprolol [Lopressor] 25 mg PO BID 11/04/17 02/13/18 Benzonatate 100 mg PO DAILY PRN 12/02/17 02/13/18 Guaifenesin [Mucinex] 600 mg PO BID PRN 12/02/17 02/13/18 Lactobacillus Acidophilus 1 tab PO BID 12/02/17 02/13/18 [Acidophilus] Lidocaine Patch [Lidoderm 5% patch] 1 patch TD DAILY 02/13/18 02/13/18 Sodium Chloride 1 gm PO BID 02/13/18 02/13/18 hydrALAZINE [HydrALAZINE] 50 mg PO Q8HR 02/13/18 02/13/18 Previous Rx's Medication Instructions Recorded Losartan Potassium [Cozaar] 50 mg PO BID #60 tab 12/03/16 Pravastatin Sodium [Pravachol] 20 mg PO HS #30 tablet 12/03/16 Melatonin 3 mg PO HS tablet 11/09/17 Calcium Carbonate [Tums] 1,000 mg PO TID tab.chew 12/05/17 Docusate [Colace] 100 mg PO BID PRN capsule 12/21/17 Cefdinir [Omnicef] 300 mg PO BID #8 capsule 02/16/18 Doxycycline 100 mg PO BID #0 capsule 02/16/18 Gabapentin [Neurontin] 300 mg PO BID 5 Days #10 capsule 02/16/18 Tramadol HCl [Ultram] 50 mg PO Q6HR PRN 4 Days #10 02/16/18 Allergies Allergy/AdvReac Type Severity Reaction Status Date / Time aspirin AdvReac See Verified 02/12/18 22:06 Comments Cardiovascular: Denies: chest pain Respiratory: Denies: dyspnea Gastrointestinal: Denies: abdominal pain Genitourinary: Denies: urgency, dysuria, frequency Musculoskeletal: Reports: other (Hip pain and neck pain) Past Medical History - Past Medical History Medical history: Reports: coronary artery disease, GERD, hypertension, myocardial infarction, renal disease, seizures Surgical history: Reports: appendectomy, hip replacement Psychiatric history: Reports: anxiety, depression - Social History Smoking Status: Never smoker Smokeless Tobacco Status: No Alcohol use: Reports: none Drug use: Reports: none Physical Exam - General Limitations: altered mental status General appearance: alert, in no apparent distress Course Vital Signs Temperature 99.8 F H 02/12/18 22:06 Pulse Rate 91 02/12/18 22:06 Respiratory Rate 16 02/12/18 22:06 Blood Pressure 156/95 02/12/18 22:06 O2 Sat by Pulse Oximetry 94 02/12/18 22:06 Temperature 98.6 F 02/16/18 10:51 Pulse Rate 80 02/16/18 10:51 Respiratory Rate 16 02/16/18 10:51 Blood Pressure 136/85 02/16/18 10:51 O2 Sat by Pulse Oximetry 96 02/16/18 10:51 Oxygen Delivery Oxygen Delivery Room Air Medical Decision Making - Lab Data Result diagrams: 02/16/18 01:30 02/16/18 01:30 Lab Results 02/12/18 02/12/18 02/12/18 Range/Units 23:03 23:03 23:11 WBC 16.9 H (4.3-11.1) K/mcL RBC 3.28 L (3.82-4.97) M/mcL Hgb 10.6 L (11.5-15.4) g/dL Hct 32.0 L (35.3-44.9) % MCV 97.6 (83.0-100.0) fL MCH 32.3 (28.0-33.3) pg MCHC 33.1 (31.6-35.5) g/dL RDW 13.2 (11.5-14.5) % Plt Count 237 (140-400) K/mcL MPV 9.0 L (9.4-12.4) fL Immature Gran % 0.7 (0-4) % Seg Neutrophils % 74.9 % Lymphocytes % 13.1 % Monocytes % 11.1 % Eosinophils % 0.0 % Basophils % 0.2 % Neutrophils # 12.7 H (1.6-8.9) K/mcL Lymphocytes # 2.2 (0.6-4.6) K/mcL Monocytes # 1.9 H (0.0-1.3) K/mcL Eosinophils # 0.0 (0.0-0.6) K/mcL Basophils # 0.0 (0.0-0.2) K/mcL Sodium 127 L (136-145) mEq/L Potassium 4.2 (3.5-5.1) mEq/L Chloride 98 (98-107) mEq/L Carbon Dioxide 22 L (23-29) mEq/L BUN 23 (8-23) mg/dL Creatinine 0.94 (0.60-1.20) mg/dL Est GFR ( Amer) > 60 (> 60) Est GFR (Non-Af Amer) 57 L (> 60) BUN/Creatinine Ratio 24 (6-26) Glucose 123 H (70-105) mg/dL POC Glucose (70-99) mg/dL Serum Osmolality (280-300) mOsm/kg Calculated Osmolality 269 L (280-300) Calcium 9.4 (8.6-10.3) mg/dL Total Bilirubin (0.3-1.0) mg/dL AST (13-39) Units/L ALT (7-52) Units/L Alkaline Phosphatase (34-104) Units/L Ammonia (16-53) mcmol/L Troponin I (< 0.04) ng/mL Serum Total Protein (6.4-8.9) g/dL Albumin (3.5-5.7) g/dL Globulin (2.4-3.5) g/dL Albumin/Globulin Ratio (1.1-2.2) Urine Color Yellow (Yellow) Urine Clarity Clear (Clear) Urine pH 5.5 (5.0-8.0) pH Units Ur Specific [place] 1.025 (1.010-1.025) Urine Protein 30 H (Neg-Trace) mg/dL Urine Glucose (UA) Normal (Normal) mg/dL Urine Ketones Negative (Negative) mg/dL Urine Blood Negative (Negative) Urine Nitrite Negative (Negative) Urine Bilirubin Negative (Negative) Urine Urobilinogen Normal (Normal) mg/dL Ur Leukocyte Esterase Negative (Negative) Urine Microscopic RBC 0-3 (0-3) per hpf Urine Microscopic WBC 0-3 (0-3) per hpf Ur Squamous Epith Cells Many H (None-Few) per lpf Urine Bacteria None Seen (None-Few) per hpf Hyaline Casts Few (None-Few) per lpf Ur Culture Indicated? NO (NO) Urine Osmolality (300-1090) mOsm/kg 02/13/18 02/13/18 02/13/18 Range/Units 08:49 08:49 08:49 WBC 12.9 H (4.3-11.1) K/mcL RBC 3.12 L (3.82-4.97) M/mcL Hgb 10.1 L (11.5-15.4) g/dL Hct 30.4 L (35.3-44.9) % MCV 97.4 (83.0-100.0) fL MCH 32.4 (28.0-33.3) pg MCHC 33.2 (31.6-35.5) g/dL RDW 13.2 (11.5-14.5) % Plt Count 216 (140-400) K/mcL MPV 9.3 L (9.4-12.4) fL Immature Gran % 0.5 (0-4) % Seg Neutrophils % 70.0 % Lymphocytes % 16.9 % Monocytes % 12.3 % Eosinophils % 0.1 % Basophils % 0.2 % Neutrophils # 9.0 H (1.6-8.9) K/mcL Lymphocytes # 2.2 (0.6-4.6) K/mcL Monocytes # 1.6 H (0.0-1.3) K/mcL Eosinophils # 0.0 (0.0-0.6) K/mcL Basophils # 0.0 (0.0-0.2) K/mcL Sodium 129 L (136-145) mEq/L Potassium 4.0 (3.5-5.1) mEq/L Chloride 98 (98-107) mEq/L Carbon Dioxide 25 (23-29) mEq/L BUN 21 (8-23) mg/dL Creatinine 0.94 (0.60-1.20) mg/dL Est GFR ( Amer) > 60 (> 60) Est GFR (Non-Af Amer) 57 L (> 60) BUN/Creatinine Ratio 22 (6-26) Glucose 115 H (70-105) mg/dL POC Glucose (70-99) mg/dL Serum Osmolality (280-300) mOsm/kg Calculated Osmolality 272 L (280-300) Calcium 9.5 (8.6-10.3) mg/dL Total Bilirubin 0.7 (0.3-1.0) mg/dL AST 18 (13-39) Units/L ALT 12 (7-52) Units/L Alkaline Phosphatase 77 (34-104) Units/L Ammonia (16-53) mcmol/L Troponin I 0.03 (< 0.04) ng/mL Serum Total Protein 5.8 L (6.4-8.9) g/dL Albumin 3.4 L (3.5-5.7) g/dL Globulin 2.4 (2.4-3.5) g/dL Albumin/Globulin Ratio 1.4 (1.1-2.2) Urine Color (Yellow) Urine Clarity (Clear) Urine pH (5.0-8.0) pH Units Ur Specific [place] (1.010-1.025) Urine Protein (Neg-Trace) mg/dL Urine Glucose (UA) (Normal) mg/dL Urine Ketones (Negative) mg/dL Urine Blood (Negative) Urine Nitrite (Negative) Urine Bilirubin (Negative) Urine Urobilinogen (Normal) mg/dL Ur Leukocyte Esterase (Negative) Urine Microscopic RBC (0-3) per hpf Urine Microscopic WBC (0-3) per hpf Ur Squamous Epith Cells (None-Few) per lpf Urine Bacteria (None-Few) per hpf Hyaline Casts (None-Few) per lpf Ur Culture Indicated? (NO) Urine Osmolality (300-1090) mOsm/kg 02/13/18 02/13/18 02/13/18 Range/Units 08:56 08:56 11:20 WBC (4.3-11.1) K/mcL RBC (3.82-4.97) M/mcL Hgb (11.5-15.4) g/dL Hct (35.3-44.9) % MCV (83.0-100.0) fL MCH (28.0-33.3) pg MCHC (31.6-35.5) g/dL RDW (11.5-14.5) % Plt Count (140-400) K/mcL MPV (9.4-12.4) fL Immature Gran % (0-4) % Seg Neutrophils % % Lymphocytes % % Monocytes % % Eosinophils % % Basophils % % Neutrophils # (1.6-8.9) K/mcL Lymphocytes # (0.6-4.6) K/mcL Monocytes # (0.0-1.3) K/mcL Eosinophils # (0.0-0.6) K/mcL Basophils # (0.0-0.2) K/mcL Sodium (136-145) mEq/L Potassium (3.5-5.1) mEq/L Chloride (98-107) mEq/L Carbon Dioxide (23-29) mEq/L BUN (8-23) mg/dL Creatinine (0.60-1.20) mg/dL Est GFR ( Amer) (> 60) Est GFR (Non-Af Amer) (> 60) BUN/Creatinine Ratio (6-26) Glucose (70-105) mg/dL POC Glucose (70-99) mg/dL Serum Osmolality 273 L (280-300) mOsm/kg Calculated Osmolality (280-300) Calcium (8.6-10.3) mg/dL Total Bilirubin (0.3-1.0) mg/dL AST (13-39) Units/L ALT (7-52) Units/L Alkaline Phosphatase (34-104) Units/L Ammonia 26 (16-53) mcmol/L Troponin I (< 0.04) ng/mL Serum Total Protein (6.4-8.9) g/dL Albumin (3.5-5.7) g/dL Globulin (2.4-3.5) g/dL Albumin/Globulin Ratio (1.1-2.2) Urine Color Yellow (Yellow) Urine Clarity Clear (Clear) Urine pH 6.0 (5.0-8.0) pH Units Ur Specific [place] 1.022 (1.010-1.025) Urine Protein 30 H (Neg-Trace) mg/dL Urine Glucose (UA) Normal (Normal) mg/dL Urine Ketones Negative (Negative) mg/dL Urine Blood Negative (Negative) Urine Nitrite Negative (Negative) Urine Bilirubin Negative (Negative) Urine Urobilinogen Normal (Normal) mg/dL Ur Leukocyte Esterase Negative (Negative) Urine Microscopic RBC 5-15 H (0-3) per hpf Urine Microscopic WBC 0-3 (0-3) per hpf Ur Squamous Epith Cells Few (None-Few) per lpf Urine Bacteria None Seen (None-Few) per hpf Hyaline Casts None Seen (None-Few) per lpf Ur Culture Indicated? (NO) Urine Osmolality (300-1090) mOsm/kg 02/13/18 02/13/18 Range/Units 11:51 12:00 WBC (4.3-11.1) K/mcL RBC (3.82-4.97) M/mcL Hgb (11.5-15.4) g/dL Hct (35.3-44.9) % MCV (83.0-100.0) fL MCH (28.0-33.3) pg MCHC (31.6-35.5) g/dL RDW (11.5-14.5) % Plt Count (140-400) K/mcL MPV (9.4-12.4) fL Immature Gran % (0-4) % Seg Neutrophils % % Lymphocytes % % Monocytes % % Eosinophils % % Basophils % % Neutrophils # (1.6-8.9) K/mcL Lymphocytes # (0.6-4.6) K/mcL Monocytes # (0.0-1.3) K/mcL Eosinophils # (0.0-0.6) K/mcL Basophils # (0.0-0.2) K/mcL Sodium (136-145) mEq/L Potassium (3.5-5.1) mEq/L Chloride (98-107) mEq/L Carbon Dioxide (23-29) mEq/L BUN (8-23) mg/dL Creatinine (0.60-1.20) mg/dL Est GFR ( Amer) (> 60) Est GFR (Non-Af Amer) (> 60) BUN/Creatinine Ratio (6-26) Glucose (70-105) mg/dL POC Glucose 119 H (70-99) mg/dL Serum Osmolality (280-300) mOsm/kg Calculated Osmolality (280-300) Calcium (8.6-10.3) mg/dL Total Bilirubin (0.3-1.0) mg/dL AST (13-39) Units/L ALT (7-52) Units/L Alkaline Phosphatase (34-104) Units/L Ammonia (16-53) mcmol/L Troponin I (< 0.04) ng/mL Serum Total Protein (6.4-8.9) g/dL Albumin (3.5-5.7) g/dL Globulin (2.4-3.5) g/dL Albumin/Globulin Ratio (1.1-2.2) Urine Color (Yellow) Urine Clarity (Clear) Urine pH (5.0-8.0) pH Units Ur Specific [place] (1.010-1.025) Urine Protein (Neg-Trace) mg/dL Urine Glucose (UA) (Normal) mg/dL Urine Ketones (Negative) mg/dL Urine Blood (Negative) Urine Nitrite (Negative) Urine Bilirubin (Negative) Urine Urobilinogen (Normal) mg/dL Ur Leukocyte Esterase (Negative) Urine Microscopic RBC (0-3) per hpf Urine Microscopic WBC (0-3) per hpf Ur Squamous Epith Cells (None-Few) per lpf Urine Bacteria (None-Few) per hpf Hyaline Casts (None-Few) per lpf Ur Culture Indicated? (NO) Urine Osmolality 590 (300-1090) mOsm/kg Attestation Statement - Attestation Attestation: I examined this patient and my medical decision-making was reviewed with the Resident Physician. I agree with the documented findings, disposition and treatment plan as described except to the extent set forth below. 2 falls, seems normal neurologically but not quite at baseline per family members. Work up ordered, pt checked out to dr. Wing at change of shift.
== END 2018-02-16 16:30 | DRG 193 ==
LOC: EMEROO 21:55 → 3NENU 21:55 → SUATTDRO 02-13 14:08
PROVIDERS: ADMIT Internal Medicine; ATTEND Internal Medicine

== ENCOUNTER 2018-04-07 11:36 | Inpatient (IN) ==
[2018-04-07] MEDS ORDERED: 0.9 % Sodium Chloride 1,000 ML IVC ONE (11:39)
--- NOTE | 2018-04-07 11:39 | Emergency Department Note ---
Disposition Clinical Impression: Hypernatremia, Elevated troponin Altered mental status Qualifiers: Altered mental status type: transient alteration of awareness Qualified Code(s) : R40.4 - Transient alteration of awareness Urinary tract infection Qualifiers: Urinary tract infection type: acute cystitis Hematuria presence: with hematuria Qualified Code(s): N30.01 - Acute cystitis with hematuria Disposition: Admitted As Inpatient General Adult HPI - General Stated complaint: AMS/high temp Time Seen by Provider: 04/07/18 11:38 Nursing Notes Reviewed: Yes Vital Signs Reviewed: Yes - History of Present Illness HPI Narrative: 82-year-old female presents to the emergency department from nursing facility with concern for confusion over the last day. Nursing staff states that patient became a little more altered last night. Patient only complaining of abdominal pain. Denies any chest pain, pressure, tightness. [facility]PC reports fever. Patient states that she does not know was going on. - Related Data Home Medications Medication Instructions Recorded Confirmed Loratadine [Claritin] 10 mg PO DAILY 10/12/16 04/07/18 Pantoprazole Sodium [Protonix] 40 mg PO DAILY 10/12/16 04/07/18 Aspirin 81 mg PO DAILY 12/01/16 04/07/18 Calcium Carbonate/Vitamin D3 500 mg PO DAILY 12/01/16 04/07/18 [Calcium 500-Vit D3 200 Caplet] Metoprolol [Lopressor] 25 mg PO BID 11/04/17 04/07/18 Benzonatate 100 mg PO DAILY PRN 12/02/17 04/07/18 Guaifenesin [Mucinex] 600 mg PO BID PRN 12/02/17 04/07/18 Lactobacillus Acidophilus 1 tab PO BID 12/02/17 04/07/18 [Acidophilus] Lidocaine Patch [Lidoderm 5% patch] 1 patch TD DAILY 02/13/18 04/07/18 Sodium Chloride [Sodium Chloride 1 gm PO BID 02/13/18 04/07/18 Tab] hydrALAZINE [HydrALAZINE] 50 mg PO Q8HR 02/13/18 04/07/18 Amlodipine Besylate 2.5 mg PO DAILY 04/07/18 04/07/18 Ferrous Sulfate [Iron] 325 mg PO DAILY 04/07/18 04/07/18 Multivit-Min/FA/Lycopen/Lutein [A 1 tab PO DAILY 04/07/18 04/07/18 Thru Z Select Multivit Tab] Sertraline [Zoloft] 50 mg PO DAILY 04/07/18 04/07/18 Previous Rx's Medication Instructions Recorded Losartan Potassium [Cozaar] 50 mg PO BID #60 tab 12/03/16 Pravastatin Sodium [Pravachol] 20 mg PO HS #30 tablet 12/03/16 Melatonin 3 mg PO HS tablet 11/09/17 Calcium Carbonate [Tums] 1,000 mg PO TID tab.chew 12/05/17 Docusate [Colace] 100 mg PO BID PRN capsule 12/21/17 Tramadol HCl [Ultram] 50 mg PO Q6HR PRN 4 Days #10 02/16/18 Allergies Allergy/AdvReac Type Severity Reaction Status Date / Time aspirin AdvReac See Verified 02/12/18 22:06 Comments All systems ED: reviewed and negative except as stated. Review of Systems: As Per HPI Limitations: ROS unobtainable due to patients medical condition (Altered mental status) Constitutional: Reports: fever Gastrointestinal: Reports: abdominal pain Past Medical History - Past Medical History Medical history: Reports: coronary artery disease, GERD, hypertension, renal disease, seizures Surgical history: Reports: appendectomy, hip replacement Psychiatric history: Reports: anxiety, depression - Social History Smoking Status: Never smoker Smokeless Tobacco Status: No Alcohol use: Reports: none Drug use: Reports: none Physical Exam - General Limitations: altered mental status - Head Head exam: atraumatic, normocephalic - Eye Eye exam: Present: EOMI. Absent: scleral icterus - ENT ENT exam: mucous membranes dry - Neck Neck exam: Present: trachea midline. Absent: tenderness, meningismus - Chest Chest inspection: Present: normal inspection, symmetric chest wall rise - Respiratory Respiratory exam: Present: normal lung sounds bilaterally, respiratory distress - Cardiovascular Cardiovascular exam: Present: normal rhythm, tachycardia - Abdominal Exam Abdominal exam: Present: distention. Absent: guarding, rebound - Back Exam Back exam: Present: full ROM - Neurological Exam Neurological exam: Present: alert, CN II-XII intact, other (GCS 15, not oriented to person, place, time.) - Psychiatric Psychiatric exam: Present: normal affect, normal mood - Skin Skin exam: Present: warm, dry, intact Course Vital Signs Temperature 102.1 F H 04/07/18 11:43 Pulse Rate 101 04/07/18 11:43 Respiratory Rate 28 04/07/18 11:43 Blood Pressure 134/114 04/07/18 11:43 O2 Sat by Pulse Oximetry 96 04/07/18 11:43 Temperature 99.3 F 04/07/18 17:41 Pulse Rate 83 04/07/18 17:41 Respiratory Rate 20 04/07/18 17:41 Blood Pressure 138/64 04/07/18 17:41 O2 Sat by Pulse Oximetry 95 04/07/18 17:41 Oxygen Delivery Oxygen Delivery Room Air Medical Decision Making - [facility] Narrative Medical decision making narrative: 82-year-old female presented to emergency department with concern for fever, tachycardia, abdominal pain. Patient has altered mental status as well. Patient was initially given Tylenol and a liter of fluid. CT scan of abdomen and pelvis were obtained. Did not reveal any acute intra-abdominal abnormality. Patient has leukocytosis of 15.6. Patient has creatinine of 1.65. Patient hypernatremic with sodium of 151. Troponin is 0.10. At this time, patient most likely has elevation of creatinine and troponin secondary to in organ damage from her urinary tract infection. Patient given Rocephin IV here in the emergency department. I spoke with nephrology on the phone and they stated to provide patient with D5 and [place] at 60 mg per hour. This was started after the initial normal saline bolus. Also spoke with cardiology, Dr. Hernandez on the phone and he stated that he would not mind following patient on the floor if hospitalist decided to consult him. Patient admitted to hospitalist service for further management and observation. Blood cultures were obtained. I do gas was within normal limits. Patient hemodynamically stable at time of admission. Chest X-Ray 04/07/18 11:40 IMPRESSION: No definite acute pulmonary finding. D/ / Magdaleno Espinoza MD / Magdaleno Espinoza MD Interpreting Provider: Magdaleno Espinoza MD Abdomen/Pelvis CT 04/07/18 11:41 IMPRESSION: No acute intra-abdominal abnormality identified. No evident abscess. 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 Cholelithiasis without evidence of acute cholecystitis. Moderate sigmoid diverticulosis. Slight old compression fracture of L2. D/ / Nolan Hassan MD / Nolan Hassan MD Interpreting Provider: Nolan Hassan MD Head CT 04/07/18 11:42 IMPRESSION: No acute intracranial abnormality. Mild generalized atrophy appropriate for age. Large amount of chronic ischemic changes also age-appropriate. No significant change from the prior study. D/ / Nolan Hassan MD / Nolan Hassan MD Interpreting Provider: Nolan Hassan MD Vital Signs Temperature 102.1 F H 04/07/18 11:43 Pulse Rate 101 04/07/18 11:43 Respiratory Rate 28 04/07/18 11:43 Blood Pressure 134/114 04/07/18 11:43 O2 Sat by Pulse Oximetry 96 04/07/18 11:43 Temperature 98.3 F 04/07/18 14:01 Pulse Rate 85 04/07/18 14:01 Respiratory Rate 16 04/07/18 14:01 Blood Pressure 124/72 04/07/18 14:01 O2 Sat by Pulse Oximetry 95 04/07/18 14:01 Oxygen Delivery Oxygen Delivery Room Air - Lab Data Result diagrams: 04/07/18 11:59 04/07/18 11:59 Lab Results 04/07/18 04/07/18 04/07/18 Range/Units 11:50 11:59 11:59 WBC 15.6 H (4.3-11.1) K/mcL RBC 3.56 L (3.82-4.97) M/mcL Hgb 10.8 L (11.5-15.4) g/dL Hct 34.3 L (35.3-44.9) % MCV 96.3 (83.0-100.0) fL MCH 30.3 (28.0-33.3) pg MCHC 31.5 L (31.6-35.5) g/dL RDW 13.6 (11.5-14.5) % Plt Count 168 (140-400) K/mcL MPV 9.5 (9.4-12.4) fL Immature Gran % 0.6 (0-4) % Seg Neutrophils % 80.5 % Lymphocytes % 11.5 % Monocytes % 7.3 % Eosinophils % 0.0 % Basophils % 0.1 % Neutrophils # 12.6 H (1.6-8.9) K/mcL Lymphocytes # 1.8 (0.6-4.6) K/mcL Monocytes # 1.1 (0.0-1.3) K/mcL Eosinophils # 0.0 (0.0-0.6) K/mcL Basophils # 0.0 (0.0-0.2) K/mcL PT 13.6 H (9.4-12.1) Seconds INR 1.3 Sodium (136-145) mEq/L Potassium (3.5-5.1) mEq/L Chloride (98-107) mEq/L Carbon Dioxide (23-29) mEq/L BUN (8-23) mg/dL Creatinine (0.60-1.20) mg/dL Est GFR ( Amer) (> 60) Est GFR (Non-Af Amer) (> 60) BUN/Creatinine Ratio (6-26) Glucose (70-105) mg/dL Calculated Osmolality (280-300) Lactic Acid (0.5-2.2) mmol/L Uric Acid (2.3-7.6) mg/dL Calcium (8.6-10.3) mg/dL Phosphorus (2.7-4.5) mg/dL Magnesium (1.6-2.6) mg/dL Total Bilirubin (0.3-1.0) mg/dL Direct Bilirubin (0.0-0.2) mg/dL Indirect Bilirubin (0.0-1.2) mg/dL AST (13-39) Units/L ALT (7-52) Units/L Alkaline Phosphatase (34-104) Units/L Troponin I (< 0.04) ng/mL B-Natriuretic Peptide (Less than 100) pg/mL Serum Total Protein (6.4-8.9) g/dL Albumin (3.5-5.7) g/dL Globulin (2.4-3.5) g/dL Albumin/Globulin Ratio (1.1-2.2) Lipase (11-82) Units/L Urine Color Dark Yellow (Yellow) Urine Clarity Cloudy A (Clear) Urine pH 5.0 (5.0-8.0) pH Units Ur Specific [place] 1.020 (1.010-1.025) Urine Protein 30 H (Neg-Trace) mg/dL Urine Glucose (UA) Normal (Normal) mg/dL Urine Ketones Negative (Negative) mg/dL Urine Blood Large H (Negative) Urine Nitrite Negative (Negative) Urine Bilirubin Negative (Negative) Urine Urobilinogen Normal (Normal) mg/dL Ur Leukocyte Esterase Moderate H (Negative) Urine Microscopic RBC 5-15 H (0-3) per hpf Urine Microscopic WBC 5-15 H (0-3) per hpf Ur Squamous Epith Cells Many H (None-Few) per lpf Amorphous Sediment Few (Few) Urine Bacteria Moderate H (None-Few) per hpf Hyaline Casts None Seen (None-Few) per lpf Granular Casts Few H (None Seen) per lpf Ur Culture Indicated? NO. A (NO) 04/07/18 04/07/18 04/07/18 Range/Units 11:59 11:59 11:59 WBC (4.3-11.1) K/mcL RBC (3.82-4.97) M/mcL Hgb (11.5-15.4) g/dL Hct (35.3-44.9) % MCV (83.0-100.0) fL MCH (28.0-33.3) pg MCHC (31.6-35.5) g/dL RDW (11.5-14.5) % Plt Count (140-400) K/mcL MPV (9.4-12.4) fL Immature Gran % (0-4) % Seg Neutrophils % % Lymphocytes % % Monocytes % % Eosinophils % % Basophils % % Neutrophils # (1.6-8.9) K/mcL Lymphocytes # (0.6-4.6) K/mcL Monocytes # (0.0-1.3) K/mcL Eosinophils # (0.0-0.6) K/mcL Basophils # (0.0-0.2) K/mcL PT (9.4-12.1) Seconds INR Sodium 151 H (136-145) mEq/L Potassium 3.5 (3.5-5.1) mEq/L Chloride 119 H (98-107) mEq/L Carbon Dioxide 23 (23-29) mEq/L BUN 66 H (8-23) mg/dL Creatinine 1.65 H (0.60-1.20) mg/dL Est GFR ( Amer) 36 L (> 60) Est GFR (Non-Af Amer) 30 L (> 60) BUN/Creatinine Ratio 40 H (6-26) Glucose 128 H (70-105) mg/dL Calculated Osmolality 333 H (280-300) Lactic Acid 1.7 (0.5-2.2) mmol/L Uric Acid 6.5 (2.3-7.6) mg/dL Calcium 9.3 (8.6-10.3) mg/dL Phosphorus 3.9 (2.7-4.5) mg/dL Magnesium 2.2 (1.6-2.6) mg/dL Total Bilirubin 0.4 (0.3-1.0) mg/dL Direct Bilirubin 0.1 (0.0-0.2) mg/dL Indirect Bilirubin 0.3 (0.0-1.2) mg/dL AST 31 (13-39) Units/L ALT 24 (7-52) Units/L Alkaline Phosphatase 55 (34-104) Units/L Troponin I 0.12 H* (< 0.04) ng/mL B-Natriuretic Peptide 147 H (Less than 100) pg/mL Serum Total Protein 5.8 L (6.4-8.9) g/dL Albumin 3.1 L (3.5-5.7) g/dL Globulin 2.7 (2.4-3.5) g/dL Albumin/Globulin Ratio 1.1 (1.1-2.2) Lipase 33 (11-82) Units/L Urine Color (Yellow) Urine Clarity (Clear) Urine pH (5.0-8.0) pH Units Ur Specific [place] (1.010-1.025) Urine Protein (Neg-Trace) mg/dL Urine Glucose (UA) (Normal) mg/dL Urine Ketones (Negative) mg/dL Urine Blood (Negative) Urine Nitrite (Negative) Urine Bilirubin (Negative) Urine Urobilinogen (Normal) mg/dL Ur Leukocyte Esterase (Negative) Urine Microscopic RBC (0-3) per hpf Urine Microscopic WBC (0-3) per hpf Ur Squamous Epith Cells (None-Few) per lpf Amorphous Sediment (Few) Urine Bacteria (None-Few) per hpf Hyaline Casts (None-Few) per lpf Granular Casts (None Seen) per lpf Ur Culture Indicated? (NO) - EKG Data EKG #1 EKG attestation: Yes I reviewed and interpreted this EKG. EKG results narrative: 12:08 Ventricular rate 80 bpm, OH interval 140 ms, QRS duration 83 ms, QT 375 ms, QTC 411 ms, left axis deviation. Sinus rhythm with ventricular rate of 80 bpm. There is some T-wave flattening that is nonspecific in nature. This is staph use on the legs or cardio gram. No evidence of any ischemic ST changes. This was done in comparison with a previous electrocardiogram performed on 02/12/2018.
--- NOTE | 2018-04-07 11:40 | Emergency Department Note ---
Disposition Clinical Impression: Altered mental status Qualifiers: Altered mental status type: unspecified Qualified Code(s): R41.82 - Altered mental status, unspecified Disposition: Admitted As Inpatient General Adult HPI - General Stated complaint: AMS/high temp Time Seen by Provider: 04/07/18 11:38 - Related Data Home Medications Medication Instructions Recorded Confirmed Loratadine [Claritin] 10 mg PO DAILY 10/12/16 02/13/18 Pantoprazole Sodium [Protonix] 40 mg PO DAILY 10/12/16 02/13/18 Aspirin 81 mg PO DAILY 12/01/16 02/13/18 Calcium Carbonate/Vitamin D3 500 mg PO DAILY 12/01/16 02/13/18 [Calcium 500-Vit D3 200 Caplet] Multivitamin [Multi-Day Vitamins] 1 each PO DAILY 12/01/16 02/13/18 Metoprolol [Lopressor] 25 mg PO BID 11/04/17 02/13/18 Benzonatate 100 mg PO DAILY PRN 12/02/17 02/13/18 Guaifenesin [Mucinex] 600 mg PO BID PRN 12/02/17 02/13/18 Lactobacillus Acidophilus 1 tab PO BID 12/02/17 02/13/18 [Acidophilus] Lidocaine Patch [Lidoderm 5% patch] 1 patch TD DAILY 02/13/18 02/13/18 Sodium Chloride [Sodium Chloride 1 gm PO BID 02/13/18 02/13/18 Tab] hydrALAZINE [HydrALAZINE] 50 mg PO Q8HR 02/13/18 02/13/18 Previous Rx's Medication Instructions Recorded Losartan Potassium [Cozaar] 50 mg PO BID #60 tab 12/03/16 Pravastatin Sodium [Pravachol] 20 mg PO HS #30 tablet 12/03/16 Melatonin 3 mg PO HS tablet 11/09/17 Calcium Carbonate [Tums] 1,000 mg PO TID tab.chew 12/05/17 Docusate [Colace] 100 mg PO BID PRN capsule 12/21/17 Cefdinir [Omnicef] 300 mg PO BID #8 capsule 02/16/18 Doxycycline 100 mg PO BID #0 capsule 02/16/18 Gabapentin [Neurontin] 300 mg PO BID 5 Days #10 capsule 02/16/18 Tramadol HCl [Ultram] 50 mg PO Q6HR PRN 4 Days #10 02/16/18 Allergies Allergy/AdvReac Type Severity Reaction Status Date / Time aspirin AdvReac See Verified 02/12/18 22:06 Comments Past Medical History - Past Medical History Medical history: Reports: coronary artery disease, GERD, hypertension, renal disease, seizures Surgical history: Reports: appendectomy, hip replacement Psychiatric history: Reports: anxiety, depression - Social History Smoking Status: Never smoker Smokeless Tobacco Status: No Alcohol use: Reports: none Drug use: Reports: none Attestation Statement - Attestation Attestation: I examined this patient and my medical decision-making was reviewed with the Resident Physician. I agree with the documented findings, disposition and treatment plan as described except to the extent set forth below. 82 year old femael from [facility] with altered mental status, fever, tachycardia and concerns for sepsis. Roseanna is verbal at baseline but is slow to respond although verbal and appears weak. Her abdomen is tense but not a surgical abdomen. We will evlaute most common source of infection, HCAP, UTI, cellulitis and rule out any intraabdominal pathoogy with CT scan in addition to a HCT for AMS. We will start sepsis protocol and then admit to medicine.
[2018-04-07] MEDS ORDERED: Isovue-370 500 ML INFUS..BTL IV ONE (11:41)
[2018-04-07] MEDS ORDERED: Acetaminophen 650 MG RECTAL SUPP RC ONE (12:07)
[2018-04-07 12:08] LABS: Bilirubin,Urine Negative (Negative); Blood,Urine Large (Negative); Clarity,Urine Cloudy (Clear); Color,Urine Dark Yellow (Yellow); Glucose,Urine (UA) Normal (Normal); Ketones,Urine Negative (Negative); Leukocyte Esterase,Urine Moderate (Negative); Nitrite,Urine Negative (Negative); Protein,Urine 30 mg/dL (Neg-Trace); Urobilinogen,Urine Normal (Normal)
[2018-04-07 12:09] LABS: Hyaline Casts,Urine None Seen per lpf (None-Few); Squamous Epithelial Cell,Urine Many per lpf (None-Few)
[2018-04-07 12:10] LABS: Basophils % 0.1 %; Hematocrit 34.3 % (35.3-44.9); Hemoglobin 10.8 g/dL (11.5-15.4); Immature Granulocytes % 0.6 % (0-4); Lymphocytes # 1.8 K/mcL (0.6-4.6); Lymphocytes % 11.5 %; Mean Corpuscular HGB Conc 31.5 g/dL (31.6-35.5); Mean Corpuscular Hemoglobin 30.3 pg (28.0-33.3); Mean Corpuscular Volume 96.3 fL (83.0-100.0); Mean Platelet Volume 9.5 fL (9.4-12.4); Monocytes # 1.1 K/mcL (0.0-1.3); Monocytes % 7.3 %; Neutrophils # 12.6 K/mcL (1.6-8.9); Platelet Count 168 K/mcL (140-400); Red Blood Count 3.56 M/mcL (3.82-4.97); Red Cell Distribution Width 13.6 % (11.5-14.5); Segmented Neutrophils % 80.5 %
[2018-04-07] MEDS ORDERED: cefTRIAXone 2,000 MG in Water for inj. (sterile) 20 ML 20 ML IVP ONE (12:19)
[2018-04-07 12:33] LABS: Amorphous Sediment,Urine Few (Few); Bacteria,Urine Moderate per hpf (None-Few); Granular Casts,Urine Few per lpf (None Seen)
[2018-04-07 12:35] LABS: Albumin 3.1 g/dL (3.5-5.7); Albumin/Globulin Ratio 1.1 (1.1-2.2); Bilirubin,Direct 0.1 mg/dL (0.0-0.2); Bilirubin,Indirect 0.3 mg/dL (0.0-1.2); Bilirubin,Total 0.4 mg/dL (0.3-1.0); Calcium 9.3 mg/dL (8.6-10.3); Globulin 2.7 g/dL (2.4-3.5); Magnesium 2.2 mg/dL (1.6-2.6); Phosphorous 3.9 mg/dL (2.7-4.5); Potassium 3.5 mEq/L (3.5-5.1); Total Protein 5.8 g/dL (6.4-8.9)
[2018-04-07 12:45] LABS: Troponin I 0.12 ng/mL (< 0.04)
[2018-04-07] MEDS ORDERED: Aspirin 81 MG TAB.CHEW PO ONE (12:52)
[2018-04-07 13:19] LABS: INR 1.3; Prothrombin Time 13.6 Seconds (9.4-12.1)
[2018-04-07] MEDS: D5% in Water 1,000 ML IVC SCH (13:20)
--- NOTE | 2018-04-07 14:42 | Nephrology Consult Note ---
<Deidre Blackektremayne Roca - Last Filed: 04/07/18 15:28> Date of Encounter: 04/07/18 Time of Encounter: 14:42 Assessment and Plan (1) Hypernatremia Current Visit: Yes Status: Acute Initial serum Na 151, D5W infusing now. Serum Urice acid and CPK ordered. Urine NA, Eosonophil and creatinine ordered. Head CT and CT of abdomen/pelvis noted. CXR noted. (2) Altered mental status Current Visit: Yes Status: Acute Unsure of baseline. Qualifiers: Altered mental status type: unspecified Qualified Code(s): R41.82 - Altered mental status, unspecified History of Present Illness - Reason for Consult Consult date: 04/07/18 hyponatremia - Chief Complaint AMS, elevated temperature - History of Present Illness Ms. Rolle is an 82 year old patient that resides at [facility] in [place]. Patient is altered and unable to give accurate history. Patient does not see a charge authorizer routinely, unsure if patient followed up outpatient after hyponatremia in December of 2017. Per old records Sodium chloride 1 gram BID started for hyponatremia, will placed on hold if ordered inpatient. PMH: coronary artery disease, GERD, hypertension, & seizures. Normal Scr in the past with GFR of 55-60. Son at bedside, he does not know how much patient was eating/drinking at [facility] but does report that she does ambulate with assistance at the ECF. Past Med Surg Social Fam HX - Past Medical History Medical history: coronary artery disease, GERD, hypertension, renal disease, seizures Additional medical history: falls Psychiatric history: anxiety, depression - Past Surgical History Surgical History: appendectomy, hip replacement Additional surgical history: left hip replacement - Social History Smoking Status: Never smoker Smokeless Tobacco Status: No Alcohol use: none Drug use: none - Family History Mother Living Status: Hx Family Cancer: Yes (breast cancer) Father Living Status: Hx Family Cardiac Disorders: Yes (stroke) Hx Family Neuromuscular Disorders: Yes (CVA) Medications and Allergies Loratadine [Claritin] 10 mg PO DAILY 10/12/16 [History] Pantoprazole Sodium [Protonix] 40 mg PO DAILY 10/12/16 [History] Aspirin 81 mg PO DAILY 12/01/16 [History] Calcium Carbonate/Vitamin D3 [Calcium 500-Vit D3 200 Caplet] 500 mg PO DAILY [History] Losartan Potassium [Cozaar] 50 mg PO BID #60 tab 12/03/16 [Rx] Pravastatin Sodium [Pravachol] 20 mg PO HS #30 tablet 12/03/16 [Rx] Metoprolol [Lopressor] 25 mg PO BID 11/04/17 [History] Melatonin 3 mg PO HS tablet 11/09/17 [Rx] Benzonatate 100 mg PO DAILY PRN 12/02/17 [History] Guaifenesin [Mucinex] 600 mg PO BID PRN 12/02/17 [History] Lactobacillus Acidophilus [Acidophilus] 1 tab PO BID 12/02/17 [History] Calcium Carbonate [Tums] 1,000 mg PO TID tab.chew 12/05/17 [Rx] Docusate [Colace] 100 mg PO BID PRN capsule 12/21/17 [Rx] Lidocaine Patch [Lidoderm 5% patch] 1 patch TD DAILY 02/13/18 [History] Sodium Chloride [Sodium Chloride Tab] 1 gm PO BID 02/13/18 [History] hydrALAZINE [HydrALAZINE] 50 mg PO Q8HR 02/13/18 [History] Tramadol HCl [Ultram] 50 mg PO Q6HR PRN 4 Days #10 02/16/18 [Rx] Amlodipine Besylate 2.5 mg PO DAILY 04/07/18 [History] Ferrous Sulfate [Iron] 325 mg PO DAILY 04/07/18 [History] Multivit-Min/FA/Lycopen/Lutein [A Th[employer] Multivit Tab] 1 tab PO DAILY 04/19 [History] Sertraline [Zoloft] 50 mg PO DAILY 04/07/18 [History] 3 Allergy/AdvReac Type Severity Reaction Status Date / Time aspirin AdvReac See Verified 02/12/18 22:06 Comments Review of Systems ROS unobtainable: due to mental status Exam - Vital Signs Vital signs: Initial Vital Signs Temp Pulse Resp BP Pulse Ox 102.1 F H 101 28 134/114 96 04/07/18 11:43 04/07/18 11:43 04/07/18 11:43 04/07/18 11:43 04/07/18 11:43 Vital Signs - Last 8 Hours Temp Pulse Resp BP Pulse Ox 04/07/18 14:01 98.3 F 85 16 124/72 95 04/07/18 13:00 80 18 130/73 04/07/18 12:47 83 22 139/71 97 04/07/18 12:03 88 26 132/58 95 04/07/18 11:43 102.1 F H 101 28 134/114 96 Intake and Output 04/06/18 04/07/18 04/07/18 23:59 07:59 15:59 Intake Total 1020 / 1020 Output Total 1999 Balance -980 / -980 Intake: IV Fluids 1020 / 1020 0.9 % Sodium Chloride 1,000 ML 1000 / 1000 @ 3750 mls/hr IVC .Q16M ONE Rx# :[id number] Rocephin 2,000 MG In Water for inj. (sterile) 20 ML @ 600 mls/ hr IVP ONCE ONE Rx#:[id number] Output: Catheter 1999 Other: Weight 66.678 kg Patient Weight 04/07/18 23:59 Weight 66.678 kg - General Appearance General appearance: chronically ill, frail EENT: ATNC, hearing intact, vision intact Neck: supple Respiratory: clear Cardiology: no edema, regular rate, regular rhythm, normal S1, normal S2 Gastrointestinal: normoactive bowel sounds, no tenderness, no guarding Integumentary: no rash, warm and dry Neurologic: confused Psychiatric: mood/affect appropriate, cooperative Results - Lab Results 04/07/18 11:59 04/07/18 11:59 Most recent lab results Calcium 9.3 mg/dL (8.6-10.3) 04/07/18 11:59 Phosphorus 3.9 mg/dL (2.7-4.5) 04/07/18 11:59 Magnesium 2.2 mg/dL (1.6-2.6) 04/07/18 11:59 Consult Discharge Plan - Plan Referrals: Daria Bedoya [Primary Care Provider] - <Jean-Paul Baron - Last Filed: 04/09/18 00:28> Date of Encounter: 04/07/18 Past Med Surg Social Fam HX - Family History Mother Race: Family Member Ethnicity: Non- Living Status: Age at : 80 Cause of : Old age Hx Family Cancer: Yes (Breast cancer) Father Race: Family Member Ethnicity: Non- Living Status: Age at : 60 Cause of : CVA Hx Family Cardiac Disorders: Yes (CVA) Hx Family Neuromuscular Disorders: Yes (CVA) Brother Race: Family Member Ethnicity: Non- Living Status: Still Living Hx Family Medical Disorders: No Sister Race: Family Member Ethnicity: Non- Living Status: Still Living Hx Family Neurologic Disorders: Yes (Dementia) Exam - Vital Signs Vital signs: Initial Vital Signs Temp Pulse Resp BP Pulse Ox 102.1 F H 101 28 134/114 96 04/07/18 11:43 04/07/18 11:43 04/07/18 11:43 04/07/18 11:43 04/07/18 11:43 Vital Signs - Last 8 Hours Temp Pulse Resp BP Pulse Ox 04/08/18 23:39 99.4 F 97 16 133/66 96 04/08/18 20:02 97.8 F 100 15 109/68 97 Intake and Output 04/08/18 04/08/18 04/09/18 15:59 23:59 07:59 Intake Total 600 / 600 Balance 600 / 600 Intake: Oral 600 / 600 Other: Meal Lunch Percent of Meal Consumed 25% Results - Lab Results 04/08/18 00:41 04/08/18 09:25 Most recent lab results Calcium 8.9 mg/dL (8.6-10.3) 04/08/18 09:25 Phosphorus 3.9 mg/dL (2.7-4.5) 04/07/18 11:59 Magnesium 2.2 mg/dL (1.6-2.6) 04/07/18 11:59 Urine Creatinine 95 mg/dL 04/07/18 23:05 Urine Sodium 39.7 mEq/L 04/07/18 23:05 Urine Total Protein 145 mg/dL (1-14) H 04/07/18 23:05 - Attending Attestation I examined this patient and my medical decision-making was reviewed with the Resident Physician/CARE ANALYST. I agree with the documented findings, disposition and treatment plan as described except to the extent set forth below. Pt seen and examined presenting from [facility] with altered mental status with son at bedside. Sodium noted at 151. D5W already started after discussions with the ER. Water deficit approx. 3.5 liters. Scr also noted elevated, should improve with fluids. On exam fragile appearsing elderly female noted with dry MM. Recommendations as above.
[2018-04-07 15:26] LABS: Uric Acid 6.5 mg/dL (2.3-7.6)
[2018-04-07] MEDS ORDERED: Naloxone 0.4 MG/ML INJ IVP PRN (15:50)
[2018-04-07] MEDS ORDERED: Benzonatate 100 MG CAPSULE PO PRN (15:59)
[2018-04-07] MEDS ORDERED: traMADol 50 MG TABLET PO PRN (15:59)
--- NOTE | 2018-04-07 16:53 | Internal Med History&Physical ---
<Magdaleno Holliday - Last Filed: 04/07/18 18:56> Date of Encounter: 04/07/18 Time of Encounter: 15:00 Internal Medicine - H&P: HPI Chief complaint: AMS/Weakness Admitted From: Emergency Dept Plans for Post Hospital Care: Home History of present illness: Ms. Rolle is a 82 year old female w/PMH of CAD, GERD, HTN, renal disease, seizures presents from the ED with chief complaint of progressively worsening weakness and altered mental status for the past 4 weeks. Pts. son states that she was hospitalized approx 1.5 months ago for PNA and has become weaker and spiked a fever yesterday. Weakness worse in last two weeks where pt. doesn't leave bed. States her appetite and intake has declined as well. Reports some SOB and pain in left foot (pt. has hx of falls). Son reports pt. is more altered since yesterday. Pt. denies chest pain, pressure, numbness, tingling, changes in vision, headache, cough, abdominal pain, nausea, vomiting, diarrhea, constipation, unusual bleeding, dizziness, lightheadedness, pre-syncope, or syncope. Past Med Surg Social Fam HX - Past Medical History Source: patient, old records reviewed, obtained from family Medical history: coronary artery disease, GERD, hypertension, renal disease, seizures Additional medical history: falls Psychiatric history: anxiety, depression - Past Surgical History Surgical History: appendectomy, hip replacement Additional surgical history: left hip replacement - Social History Smoking Status: Former smoker Packs per day: Reports quitting >50 years ago Smokeless Tobacco Status: No Alcohol use: none Drug use: none Current living situation: ECF Activity Level: Uses cane/walker Recent Out of Country Travel Within the Last 8 Weeks: No Exposure or Possible Exposure to Illness During Travel: No - Family History Mother Race: Family Member Ethnicity: Non- Living Status: Age at : 80 Cause of : Old age Hx Family Cancer: Yes (Breast cancer) Father Race: Family Member Ethnicity: Non- Living Status: Age at : 60 Cause of : CVA Hx Family Cardiac Disorders: Yes (CVA) Hx Family Neuromuscular Disorders: Yes (CVA) Brother Race: Family Member Ethnicity: Non- Living Status: Still Living Hx Family Medical Disorders: No Sister Race: Family Member Ethnicity: Non- Living Status: Still Living Hx Family Neurologic Disorders: Yes (Dementia) Internal Medicine - H&P: Meds Loratadine [Claritin] 10 mg PO DAILY 10/12/16 [History] Pantoprazole Sodium [Protonix] 40 mg PO DAILY 10/12/16 [History] Aspirin 81 mg PO DAILY 12/01/16 [History] Calcium Carbonate/Vitamin D3 [Calcium 500-Vit D3 200 Caplet] 500 mg PO DAILY [History] Losartan Potassium [Cozaar] 50 mg PO BID #60 tab 12/03/16 [Rx] Pravastatin Sodium [Pravachol] 20 mg PO HS #30 tablet 12/03/16 [Rx] Metoprolol [Lopressor] 25 mg PO BID 11/04/17 [History] Melatonin 3 mg PO HS tablet 11/09/17 [Rx] Benzonatate 100 mg PO DAILY PRN 12/02/17 [History] Guaifenesin [Mucinex] 600 mg PO BID PRN 12/02/17 [History] Lactobacillus Acidophilus [Acidophilus] 1 tab PO BID 12/02/17 [History] Calcium Carbonate [Tums] 1,000 mg PO TID tab.chew 12/05/17 [Rx] Docusate [Colace] 100 mg PO BID PRN capsule 12/21/17 [Rx] Lidocaine Patch [Lidoderm 5% patch] 1 patch TD DAILY 02/13/18 [History] Sodium Chloride [Sodium Chloride Tab] 1 gm PO BID 02/13/18 [History] hydrALAZINE [HydrALAZINE] 50 mg PO Q8HR 02/13/18 [History] Tramadol HCl [Ultram] 50 mg PO Q6HR PRN 4 Days #10 02/16/18 [Rx] Amlodipine Besylate 2.5 mg PO DAILY 04/07/18 [History] Ferrous Sulfate [Iron] 325 mg PO DAILY 04/07/18 [History] Multivit-Min/FA/Lycopen/Lutein [A Thru Z Select Multivit Tab] 1 tab PO DAILY 04/19 [History] Sertraline [Zoloft] 50 mg PO DAILY 04/07/18 [History] 3 Allergy/AdvReac Type Severity Reaction Status Date / Time aspirin AdvReac See Verified 02/12/18 22:06 Comments All Systems PM: A 10-system review of systems was performed and is negative for pertinent findings except as documented above in the HPI. - Constitutional Constitutional: as per HPI, anorexia, fatigue, fever(s), falls, weakness, no chills, no night sweats - EENT Eyes: no change in vision, no discharge, no pain, no photophobia Ears: no ear discharge, no ear pain, no tinnitus Nose, mouth and throat: no dysphagia, no nasal discharge, no neck pain, no sore throat - Breasts Breasts: as per HPI - Cardiovascular Cardiovascular ROS IM: dyspnea, dyspnea on exertion, no chest pain, no diaphoresis, no lightheadedness, no palpitations, no syncope - Respiratory Respiratory: as per HPI, dyspnea, dyspnea on exertion, no cough, no wheezing, no excessive phlegm production - Gastrointestinal Gastrointestinal: no abdominal pain, no diarrhea, no hematemesis, no hematochezia, no melena, no nausea, no vomiting - Genitourinary Genitourinary: no change in urinary stream, no dysuria, no flank pain, no hematuria Menstruation: as per HPI - Musculoskeletal Musculoskeletal ROS IM: as per HPI, other (Pain in left foot), no numbness, no tingling - Integumentary Integumentary IM: no rash, no unusual bruising - Neurological Neurological ROS: as per HPI, confusion, frequent falls, no convulsions, no focal weakness, no numbness, no tingling, no tremor(s) - Psychiatric Psychiatric: as per HPI, anxiety, depression - Endocrine Endocrine IM: as per HPI - Hematologic/Lymphatic Hematologic/Lymphatic: no easy bruising - Allergic/Immunologic Allergic/Immunologic: as per HPI - Constitutional Vitals: Temp Pulse Resp BP Pulse Ox 98.3 F 82 16 142/85 96 04/07/18 14:01 04/07/18 15:57 04/07/18 15:57 04/07/18 15:57 04/07/18 15:57 General appearance: Present: cooperative, A&O X 2, pleasant, no acute distress, answers questions appropriately - Head Head exam: Present: atraumatic, normocephalic - Eye Eye exam: Present: PERRL, conjuntiva pink, sclera anicteric Pupils: Present: PERRL - ENT ENT exam: Present: normal exam - Neck Neck exam general surgery: Present: normal inspection, supple, trachea midline. Absent: lymphadenopathy - Respiratory Respiratory exam: Present: CTAB. Absent: accessory muscle use, rales, rhonchi, wheezes - Cardiovascular Cardiovascular exam: Present: RRR, +S1, +S2. Absent: diastolic murmur, gallop, rubs, systolic murmur - GI/Abdominal GI/Abdominal exam: Present: normal bowel sounds, soft, no peritoneal signs. Absent: distended, tenderness - Rectal Rectal exam: Present: deferred - Additional comments: exam deferred. - Extremities Exam Extremities exam: Present: tenderness (Left foot), warm, radial pulses palpable and symmetrical. Absent: calf tenderness, cyanotic, pedal edema - Back Exam Back exam: Present: normal inspection - Neurological Exam Neurological exam: Present: altered - Psychiatric Psychiatric exam: Present: normal affect, normal mood - Skin Skin exam: Present: dry, intact Internal Med - H&P Results - Labs CBC & Chem 7: 04/07/18 11:59 04/07/18 11:59 Labs: Short CBC 04/07/18 Range/Units 11:59 WBC 15.6 H (4.3-11.1) K/mcL Hgb 10.8 L (11.5-15.4) g/dL Hct 34.3 L (35.3-44.9) % Plt Count 168 (140-400) K/mcL Neutrophils # 12.6 H (1.6-8.9) K/mcL BMP 04/07/18 11:59 Sodium 151 H Potassium 3.5 Chloride 119 H Carbon Dioxide 23 BUN 66 H Creatinine 1.65 H Glucose 128 H Calcium 9.3 Cardiac Enzymes 04/07/18 Range/Units 11:59 Troponin I 0.12 H* (< 0.04) ng/mL Liver Function 04/07/18 Range/Units 11:59 Total Bilirubin 0.4 (0.3-1.0) mg/dL Direct Bilirubin 0.1 (0.0-0.2) mg/dL AST 31 (13-39) Units/L ALT 24 (7-52) Units/L Alkaline Phosphatase 55 (34-104) Units/L Albumin 3.1 L (3.5-5.7) g/dL Urine 04/07/18 Range/Units 11:50 Urine Color Dark Yellow (Yellow) Urine Clarity Cloudy A (Clear) Urine pH 5.0 (5.0-8.0) pH Units Ur Specific [place] 1.020 (1.010-1.025) Urine Protein 30 H (Neg-Trace) mg/dL Urine Glucose (UA) Normal (Normal) mg/dL - EKG Data EKG shows normal: sinus rhythm - EKG Data Prior EKG available for review: yes Interpretation IM: suggestive of ischemia EKG comments: 04/07/18 17:01 EKG dated 02/12/18 shows sinus rhythm with possible septal myocardial infarction of indeterminate age. EKG dated 04/07/18 shows sinus rhythm with septal myocardial infarction of indeterminate age, inferior myocardial infarction of indeterminate age. - Impressions ITS Impressions Chest X-Ray 04/07/18 11:40 IMPRESSION: No definite acute pulmonary finding. D/ / Magdaleno Espinoza MD / Magdaleno Espinoza MD Interpreting Provider: Magdaleno Espinoza MD Abdomen/Pelvis CT 04/07/18 11:41 IMPRESSION: No acute intra-abdominal abnormality identified. No evident abscess. 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 Cholelithiasis without evidence of acute cholecystitis. Moderate sigmoid diverticulosis. Slight old compression fracture of L2. D/ / Nolan Hassan MD / Nolan Hassan MD Interpreting Provider: Nolan Hassan MD Head CT 04/07/18 11:42 IMPRESSION: No acute intracranial abnormality. Mild generalized atrophy appropriate for age. Large amount of chronic ischemic changes also age-appropriate. No significant change from the prior study. D/ / Nolan Hassan MD / Nolan Hassan MD Interpreting Provider: Nolan Hassan MD Foot X-Ray 04/07/18 16:07 IMPRESSION: 1. Soft tissue edema with no acute fracture or dislocation. D/ / Dread Harris MD / Dread Harris MD Interpreting Provider: Dread Harris MD - Diagnostic Studies Chest x-ray Additional comments: Impressions Chest X-Ray 04/07/18 11:40 IMPRESSION: No definite acute pulmonary finding. D/ / Magdaleno Espinoza MD / Magdaleno Espinoza MD Interpreting Provider: Magdaleno Espinoza MD CT scan - head Additional comments: Impressions Head CT 04/07/18 11:42 IMPRESSION: No acute intracranial abnormality. Mild generalized atrophy appropriate for age. Large amount of chronic ischemic changes also age-appropriate. No significant change from the prior study. D/ / Nolan Hassan MD / Nolan Hassan MD Interpreting Provider: Nolan Hassan MD CT scan - abdomen Additional comments: Impressions Abdomen/Pelvis CT 04/07/18 11:41 IMPRESSION: No acute intra-abdominal abnormality identified. No evident abscess. 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 Cholelithiasis without evidence of acute cholecystitis. Moderate sigmoid diverticulosis. Slight old compression fracture of L2. D/ / Nolan Hassan MD / Nolan Hassan MD Interpreting Provider: Nolan Hassan MD Other Images Additional comments: Impressions Foot X-Ray 04/07/18 16:07 IMPRESSION: 1. Soft tissue edema with no acute fracture or dislocation. D/ / Dread Harris MD / Dread Harris MD Interpreting Provider: Dread Harris MD - Assessment and plan (1) Altered mental status Current Visit: Yes Status: Acute Assessment and plan: Acute AMS over the past several days. Pts. son reports worsening sx. No hx of dementia. Transient alteration of awareness possibly caused by UTI or dehydration. Patient is aware to person and son but has difficulty w/details, place, time. Pt. resides at [facility] and son states that she has been becoming progressively weaker in past 4 weeks. IV fluids for dehydration. IVPB ceftriaxone 2,000 mg daily for UTI. Blood cultures x2. Falls/safety precautions , up with assist, bed rest w/bedside commode w/assist only. Pt. discussed w/Dr. Rob who agrees w/plan of care. Pt. is moderate risk for further morbidity d/ t current dehydration and malnutrition, leukocytosis caused by probable UTI, elevated troponin, worsening weakness and failure to thrive, hx, and risk factors. Inpatient. Qualifiers: Altered mental status type: transient alteration of awareness Qualified Code(s): R40.4 - Transient alteration of awareness (2) Weakness Current Visit: Yes Status: Acute Assessment and plan: Acutely progressing weakness over the past 4 weeks. Nutrition consult for PO supplementation. Falls/safety precautions, up with assist, bed rest w/bedside commode w/assist only. PT/OT consults ordered to assess for rehabilitation needs. (3) Dehydration Current Visit: Yes Status: Acute Assessment and plan: Acute dehydration. Pt. taking two sodium pills daily d/t hx of hyponatremia. Currently hypernatremic w/sodium of 151. Will hold sodium pills. Received 0.9 NS IV fluids in ED x 1L. Receiving D5 in water now. Will monitor labs and continue fluid hydration as appropriate. Nephrology consult ordered in ED and I appreciate the consult. Monitor I&O and daily weight. (4) Elevated troponin Current Visit: Yes Status: Acute Assessment and plan: Acute on chronic elevated troponin of 0.12 on admission. Hx of elevated troponins. Pt. denies CP or cardiac sx. Will trend. Continuous cardiac telemetry. Cardiology consult ordered in ED and I appreciate the consult. Monitor. (5) Leukocytosis Current Visit: Yes Status: Acute Qualifiers: Leukocytosis type: unspecified Qualified Code(s): D72.829 - Elevated white blood cell count, unspecified (6) Hypernatremia Current Visit: Yes Status: Acute Assessment and plan: Acute hypernatremia. Pt. hospitalized approx 5-6 weeks ago and placed on PO salt pills d/t hyponatremia. Will hold sodium pills. Pt. received 0.9 IV 1L fluid bolus in ED. Nephrology consult ordered in ED and I appreciate the consult. Monitor sodium status in f/u labs. Continuous telemetry. (7) Left foot pain Current Visit: Yes Status: Acute Assessment and plan: Acute pain in left foot of unknown cause. XR of left foot ordered to asses for possible fx or damage. (8) Protein-calorie malnutrition, moderate Current Visit: Yes Status: Acute Assessment and plan: Acute protein calorie malnutrition. Pt. reports reduced intake and weakness. Nutrition consult ordered for PO supplementation. (9) Hx of fall Current Visit: Yes Status: Chronic Assessment and plan: Hx of chronic falls. Falls/safety precautions, up with assist, bed rest w/ bedside commode w/assist only. XR of pts. left foot ordered d/t pain and hx of recent fall. PT/OT consults ordered to assess for rehabilitation needs. (10) Anemia Current Visit: Yes Status: Chronic Assessment and plan: Hx of chronic anemia. Hgb 10.8 and Hct 34.3 today which is higher than pts. recent numbers. Pt. denies unusual bleeding. Monitor H/H in f/u labs. Continue pts. PO iron. Qualifiers: Anemia type: unspecified type Qualified Code(s): D64.9 - Anemia, unspecified (11) Anxiety and depression Current Visit: Yes Status: Chronic Assessment and plan: Hx of chronic anxiety and depression. Continue pts. Zoloft. (12) CAD (coronary artery disease) Current Visit: Yes Status: Chronic Assessment and plan: Hx of CAD. Continuous cardiac telemetry. Continue pts. HTN and HLD medications. Aspirin daily. Echocardiogram in 11/19 shows LVEF of 60-65%. Qualifiers: Coronary Disease-Associated Artery/Lesion type: [place] artery [place] vs. transplanted heart: [place] heart Associated angina: without angina Qualified Code(s): I25.10 - Atherosclerotic heart disease of [place] coronary artery without angina pectoris (13) CKD (chronic kidney disease), stage III Current Visit: Yes Status: Chronic Assessment and plan: Hx of CKD. Currently stage 3 w/GFR of 30 and creatinine of 1.65. Will use IV fluids judiciously and avoid nephrotoxins. Monitor I&O. (14) GERD (gastroesophageal reflux disease) Current Visit: Yes Status: Chronic Assessment and plan: Hx of chronic GERD. IVP Zofran 4 mg Q6HR PPRN for N/V. IVP Protonix 40 mg. daily. Qualifiers: Esophagitis presence: esophagitis presence not specified Qualified Code(s) : K21.9 - Gastro-esophageal reflux disease without esophagitis (15) HTN (hypertension) Current Visit: Yes Status: Chronic Assessment and plan: Hx of chronic HTN. Monitor pt. and VS. Continue pts. Cozaar, hydralazine, amlodipine, and Lopressor. Qualifiers: Hypertension type: essential hypertension Qualified Code(s): I10 - Essential (primary) hypertension (16) HLD (hyperlipidemia) Current Visit: Yes Status: Chronic Assessment and plan: Hx Hx of chronic HLD. Lipid panel in a.m. labs. Continue pts. Pravastatin. Qualifiers: Hyperlipidemia type: pure hypercholesterolemia Qualified Code(s): E78.00 - Pure hypercholesterolemia, unspecified; E78.0 - Pure hypercholesterolemia (17) DVT prophylaxis Current Visit: Yes Status: Acute Assessment and plan: Heparin 5,000 units SQ Q12HR. Monitor pt. for signs of bleeding. - Time Spent With Patient Total time spent is greater than 50% in coordination of care (as documented) at patient's floor/unit and/or counseling patient: Greater than 35 minutes <Katrina Rob O - Last Filed: 04/07/18 22:17> Date of Encounter: 04/07/18 Internal Medicine - H&P: HPI History of present illness: Ms. Rolle is a 82 year old female All Systems PM: A 10-system review of systems was performed and is negative for pertinent findings except as documented above in the HPI. - Constitutional Vitals: Temp Pulse Resp BP Pulse Ox 97.4 F L 92 15 128/78 96 04/07/18 21:01 04/07/18 21:01 04/07/18 21:01 04/07/18 21:01 04/07/18 21:01 Internal Med - H&P Results - Labs CBC & Chem 7: 04/07/18 11:59 04/07/18 11:59 Labs: Cardiac Enzymes 04/07/18 Range/Units 17:52 Troponin I 0.10 H* (< 0.04) ng/mL - Impressions ITS Impressions Foot X-Ray 04/07/18 16:07 IMPRESSION: 1. Soft tissue edema with no acute fracture or dislocation. D/ / Dread Harris MD / Dread Harris MD Interpreting Provider: Dread Harris MD - Attending Attestation I performed a history and physical exam of the patient and discussed her management with the SHAKER TENDER. I reviewed the CNPs note and agree with the documented findings and plan of care. - Time Spent With Patient Total time spent is greater than 50% in coordination of care (as documented) at patient's floor/unit and/or counseling patient:
[2018-04-07] MEDS ORDERED: Ondansetron 4 MG/2 ML VIAL IVP PRN (16:56)
[2018-04-07] MEDS ORDERED: Pantoprazole 40 MG VIAL IVP SCH (17:00)
[2018-04-07] MEDS: *HR* Heparin 5,000 UNIT/ML VIAL SQ SCH (18:54)
[2018-04-07] MEDS: hydrALAZINE 25 MG TABLET PO SCH (18:54)
[2018-04-07] MEDS: Melatonin 3 MG TABLET PO SCH (21:47)
[2018-04-07] MEDS: Lactobacillus 1 EACH CAP.SPRINK PO SCH (21:47)
[2018-04-07 23:42] LABS: Protein/Creatinine Ratio,Urine 1.53 mg/mg (0.00-0.20); Sodium, Urine 39.7 mEq/L
[2018-04-08 01:58] LABS: Basophils % 0.1 %; Eosinophils # 0.1 K/mcL (0.0-0.6); Eosinophils % 0.3 %; Hematocrit 33.9 % (35.3-44.9); Hemoglobin 10.4 g/dL (11.5-15.4); Immature Granulocytes % 0.8 % (0-4); Lymphocytes # 1.6 K/mcL (0.6-4.6); Lymphocytes % 11.4 %; Mean Corpuscular HGB Conc 30.7 g/dL (31.6-35.5); Mean Corpuscular Hemoglobin 30.1 pg (28.0-33.3); Mean Corpuscular Volume 98.3 fL (83.0-100.0); Mean Platelet Volume 10.1 fL (9.4-12.4); Monocytes # 0.9 K/mcL (0.0-1.3); Monocytes % 6.4 %; Neutrophils # 11.7 K/mcL (1.6-8.9); Platelet Count 161 K/mcL (140-400); Red Blood Count 3.45 M/mcL (3.82-4.97); Red Cell Distribution Width 13.5 % (11.5-14.5)
[2018-04-08 02:07] LABS: INR 1.2; Prothrombin Time 12.5 Seconds (9.4-12.1)
[2018-04-08 02:09] LABS: Activated Partial Thrombo Time 28.9 Seconds (26.0-36.0)
[2018-04-08 02:24] LABS: Albumin/Globulin Ratio 1.1 (1.1-2.2); Bilirubin,Total 0.3 mg/dL (0.3-1.0); Calcium 9.1 mg/dL (8.6-10.3); Chol/HDL Ratio 2.2 (0-4.9); Globulin 2.7 g/dL (2.4-3.5); Potassium 3.2 mEq/L (3.5-5.1); Total Protein 5.7 g/dL (6.4-8.9)
[2018-04-08 02:30] LABS: Troponin I 0.1 ng/mL (< 0.04)
[2018-04-08] MEDS: hydrALAZINE 25 MG TABLET PO SCH ×4 (05:21→20:42)
[2018-04-08] MEDS: *HR* Heparin 5,000 UNIT/ML VIAL SQ SCH ×2 (05:31→17:51)
[2018-04-08 07:26] LABS: Estimated Average Glucose 123 mg/dl; Hemoglobin A1C 5.9 %
--- NOTE | 2018-04-08 09:41 | Cardiology Consult Note ---
Date of Encounter: 04/09/18 Time of Encounter: 09:28 Assessment and Plan (1) Elevated troponin Current Visit: Yes Status: Acute Mild elevations at 0.120, 0.10, and 0.10 on serial monitoring -- adynamic. No ACS equivalent symptoms in history or presently. Pt admitted with dehydration, UTI, and meeting sepsis criteria. This likely represents a demand ischemia pattern. BNP modestly elevated, but no clinical signs of AECHF. Last ECHO in Nov 2017; see report. - appropriate to ensure ongoing use of ASA 81mg - no ischemic work up seems necessary at this time Discussion w patient/family: The assessment and plan as outlined above was discussed with the patient and/or family members who expressed understanding and agreement. All questions were answered. Thank you for involving us in the care of your patient. Please call with any questions. History of Present Illness Consult date: 04/07/18 Requesting physician: Ann Argueta Consult reason: Elevated Troponin History of present illness: Ms. Rolle is a 82 year old female with past medical history of CAD, GERD, HTN, CKD, seizures, anxiety, and falls. 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 Hospitalized due to dehydration and UTI meeting sepsis criteria. Given fluid resuscitation and Rocephin in ED. Pt also assessed for hypernatremia and dehydration. No hypotension throughout course. Pt states she has been increasingly more fatigued over the last few weeks. She has poor recollection of how she eneded up at [place], but is currently fully oriented. Denies any chest pain, palpitations, syncope, presyncope, nausea, vomiting, abdominal discomfort, or worsening pedal edema. Cardiology consulted for elevated troponin; values have been 0.12, 0.10, and 0.10. Echocardiogram in November 2017 demonstrated LVEF of 60-65%, normal LV size & function, asymmetric hypertrophy of basal septum, mild LV diastolic dysfunction , moderately calcified aortic valve, mild , mild TR, mild pHTN. Past Med Surg Social Fam HX - Past Medical History Source: patient, old records reviewed Medical history: coronary artery disease, GERD, hypertension, renal disease, seizures Additional medical history: falls Psychiatric history: anxiety, depression - Past Surgical History Surgical History: appendectomy, hip replacement Additional surgical history: left hip replacement - Social History Smoking Status: Never smoker Packs per day: Reports quitting >50 years ago Smokeless Tobacco Status: No Alcohol use: none Drug use: none - Family History Mother Race: Family Member Ethnicity: Non- Living Status: Age at : 80 Cause of : Old age Hx Family Cancer: Yes (Breast cancer) Father Race: Family Member Ethnicity: Non- Living Status: Age at : 60 Cause of : CVA Hx Family Cardiac Disorders: Yes (CVA) Hx Family Neuromuscular Disorders: Yes (CVA) Brother Race: Family Member Ethnicity: Non- Living Status: Still Living Hx Family Medical Disorders: No Sister Race: Family Member Ethnicity: Non- Living Status: Still Living Hx Family Neurologic Disorders: Yes (Dementia) Medications and Allergies Loratadine [Claritin] 10 mg PO DAILY 10/12/16 [History] Pantoprazole Sodium [Protonix] 40 mg PO DAILY 10/12/16 [History] Aspirin 81 mg PO DAILY 12/01/16 [History] Calcium Carbonate/Vitamin D3 [Calcium 500-Vit D3 200 Caplet] 500 mg PO DAILY [History] Losartan Potassium [Cozaar] 50 mg PO BID #60 tab 12/03/16 [Rx] Pravastatin Sodium [Pravachol] 20 mg PO HS #30 tablet 12/03/16 [Rx] Metoprolol [Lopressor] 25 mg PO BID 11/04/17 [History] Melatonin 3 mg PO HS tablet 11/09/17 [Rx] Benzonatate 100 mg PO DAILY PRN 12/02/17 [History] Guaifenesin [Mucinex] 600 mg PO BID PRN 12/02/17 [History] Lactobacillus Acidophilus [Acidophilus] 1 tab PO BID 12/02/17 [History] Calcium Carbonate [Tums] 1,000 mg PO TID tab.chew 12/05/17 [Rx] Docusate [Colace] 100 mg PO BID PRN capsule 12/21/17 [Rx] Lidocaine Patch [Lidoderm 5% patch] 1 patch TD DAILY 02/13/18 [History] Sodium Chloride [Sodium Chloride Tab] 1 gm PO BID 02/13/18 [History] hydrALAZINE [HydrALAZINE] 50 mg PO Q8HR 02/13/18 [History] Tramadol HCl [Ultram] 50 mg PO Q6HR PRN 4 Days #10 02/16/18 [Rx] Amlodipine Besylate 2.5 mg PO DAILY 04/07/18 [History] Ferrous Sulfate [Iron] 325 mg PO DAILY 04/07/18 [History] Multivit-Min/FA/Lycopen/Lutein [A Thru Z Select Multivit Tab] 1 tab PO DAILY 04/19 [History] Sertraline [Zoloft] 50 mg PO DAILY 04/07/18 [History] 3 Allergy/AdvReac Type Severity Reaction Status Date / Time aspirin AdvReac See Verified 02/12/18 22:06 Comments All Systems Review: The remainder of the systems were reviewed and are negative Physical Examination Vital Signs, Last 4 Hours Temp Pulse Resp BP Pulse Ox 04/08/18 07:14 98.2 F 91 16 161/96 96 CONSTITUTIONAL: AOx3, appears fatigued, but not quite lethargic or even altered. Comfortable and answers all questions appropriately. HEAD: Normocephalic; atraumatic. EYES: PER (3mm), no scleral icterus, no drainage, no conjunctival injection NOSE: The nose is normal in appearance without rhinorrhea Oropharynx: pink/moist, no tonsillar edema/erythema/exudates RESP: NRD without use of accessory musculature, CTA b/l with no wheezes/rales/ rhonchi CARD: Regular rhythm, without murmurs, rubs, or gallop ABD/: grossly normal, soft, non-tender; dark, clear-yellow urine in higgins bag SKIN: normal appearance, no pallor/diaphoresis,mottling,jaundice,cyanosis EXT: DP/Rad pulses 2+ and symmetrical; trace symmetrical pedal edema; no other rashes or lesions seen PSYCH: appropriate mood/affect Results 04/09/18 04:57 04/09/18 04:57 Lab Results 04/07/18 04/08/18 04/08/18 17:52 00:41 00:41 WBC 14.4 H Hgb 10.4 L Hct 33.9 L Plt Count 161 INR 1.2 APTT 28.9 Sodium Potassium Chloride Carbon Dioxide BUN Creatinine Glucose Calcium Total Bilirubin AST ALT Alkaline Phosphatase Troponin I 0.10 H* 04/08/18 00:41 WBC Hgb Hct Plt Count INR APTT Sodium 153 H Potassium 3.2 L Chloride 118 H Carbon Dioxide 24 BUN 53 H Creatinine 1.10 Glucose 121 H Calcium 9.1 Total Bilirubin 0.3 AST 35 ALT 25 Alkaline Phosphatase 53 Troponin I 0.10 H* Consult Discharge Plan - Plan Referrals: Daria Bedoya [Primary Care Provider] -
[2018-04-08 10:02] LABS: BUN/Creatinine Ratio 47 (6-26); Blood Urea Nitrogen 44 mg/dL (8-23); Calcium 8.9 mg/dL (8.6-10.3); Carbon Dioxide 24 mEq/L (23-29); Chloride 118 mEq/L (98-107); Glucose 122 mg/dL (70-105); Osmolality,Calculated 320 (280-300); Potassium 3.3 mEq/L (3.5-5.1); Sodium 149 mEq/L (136-145); eGFR For African Americans > 60 (> 60); eGFR For Non-African Americans 57 (> 60)
[2018-04-08] MEDS: Cholecalciferol (D-3) 1,000 UNIT TABLET PO SCH (10:34)
[2018-04-08] MEDS: amLODIPine 5 MG TABLET PO SCH (10:34)
[2018-04-08] MEDS: Aspirin 81 MG TAB.CHEW PO SCH (10:35)
[2018-04-08] MEDS: Loratadine 10 MG TABLET PO SCH (10:35)
[2018-04-08] MEDS: Lactobacillus 1 EACH CAP.SPRINK PO SCH ×2 (10:36→20:42)
[2018-04-08] MEDS: Multivit/Ca/Min/Fe/FA 1 TAB TABLET PO SCH (10:43)
[2018-04-08] MEDS: cefTRIAXone 2,000 MG in Water for inj. (sterile) 20 ML 20 ML IVP SCH (10:43)
[2018-04-08] MEDS: Acetaminophen 325 MG TABLET PO PRN (10:43)
[2018-04-08] MEDS: D5% in Water 1,000 ML IVC SCH (10:51)
--- NOTE | 2018-04-08 10:58 | Nephrology Progress Note ---
<Christine Black - Last Filed: 04/08/18 10:55> Date of Encounter: 04/08/18 Time of Encounter: 10:55 - Assessment and Plan (1) Hypernatremia Current Visit: Yes Status: Acute Initial NA was 151 is now 149, correctly nicely. Will continue the D5W at 60/hr. Will monitor to avoid overcorrection. (2) Altered mental status Current Visit: Yes Status: Acute Seems to be improved. Qualifiers: Altered mental status type: transient alteration of awareness Qualified Code(s): R40.4 - Transient alteration of awareness (3) Dehydration Current Visit: Yes Status: Acute Encourage PO intake, RN informed as well. Subjective Principal diagnosis: AMS, high temperature, Hypernatremia Interval history: Pt seen and examined, RN at bedside. Denies nausea/vomiting or diarrhea. Objective - Vital Signs Vital signs: Vital Signs Temp Pulse Resp BP Pulse Ox 04/08/18 07:14 98.2 F 91 16 161/96 96 04/08/18 04:27 98.3 F 78 15 157/75 94 04/07/18 21:01 97.4 F L 92 15 128/78 96 04/07/18 17:41 99.3 F 83 20 138/64 95 04/07/18 15:57 82 16 142/85 96 Intake and Output 04/07/18 04/08/18 04/08/18 23:59 07:59 15:59 Intake Total 100 / 100 Output Total 300 / 300 Balance -200 / -200 Intake: Oral 100 / 100 Output: Catheter 300 / 300 Other: Weight 62.1 kg 62.2 kg Patient Weight 04/08/18 23:59 Weight 62.2 kg - General Appearance General appearance: Present: chronically ill, fatigue, frail EENT: Present: ATNC, hearing intact, vision intact Neck: Present: supple Respiratory: Present: clear Cardiology: Present: no edema, normal S1, normal S2 Gastrointestinal: Present: normoactive bowel sounds, no tenderness, no guarding Integumentary: Present: no rash, warm and dry Neurologic: Present: alert and oriented x3 Psychiatric: Present: mood/affect appropriate, cooperative - Lab 04/08/18 00:41 04/08/18 09:25 Most recent lab results Calcium 8.9 mg/dL (8.6-10.3) 04/08/18 09:25 Phosphorus 3.9 mg/dL (2.7-4.5) 04/07/18 11:59 Magnesium 2.2 mg/dL (1.6-2.6) 04/07/18 11:59 Urine Creatinine 95 mg/dL 04/07/18 23:05 Urine Sodium 39.7 mEq/L 04/07/18 23:05 Urine Total Protein 145 mg/dL (1-14) H 04/07/18 23:05 Consult Discharge Plan - Plan Referrals: Daria Bedoya [Primary Care Provider] - <Jean-Paul Baron - Last Filed: 04/09/18 00:30> Date of Encounter: 04/08/18 Objective - Vital Signs Vital signs: Vital Signs Temp Pulse Resp BP Pulse Ox 04/08/18 23:39 99.4 F 97 16 133/66 96 04/08/18 20:02 97.8 F 100 15 109/68 97 04/08/18 15:37 98.1 F 84 18 109/66 97 04/08/18 12:30 98.2 F 80 19 128/71 98 04/08/18 07:14 98.2 F 91 16 161/96 96 04/08/18 04:27 98.3 F 78 15 157/75 94 Intake and Output 04/08/18 04/08/18 04/09/18 15:59 23:59 07:59 Intake Total 600 / 600 Balance 600 / 600 Intake: Oral 600 / 600 Other: Meal Lunch Percent of Meal Consumed 25% - Lab 04/08/18 00:41 04/08/18 09:25 Most recent lab results Calcium 8.9 mg/dL (8.6-10.3) 04/08/18 09:25 Phosphorus 3.9 mg/dL (2.7-4.5) 04/07/18 11:59 Magnesium 2.2 mg/dL (1.6-2.6) 04/07/18 11:59 Urine Creatinine 95 mg/dL 04/07/18 23:05 Urine Sodium 39.7 mEq/L 04/07/18 23:05 Urine Total Protein 145 mg/dL (1-14) H 04/07/18 23:05 - Attending Attestation I examined this patient and my medical decision-making was reviewed with the Resident Physician/[employer]ICER. I agree with the documented findings, disposition and treatment plan as described except to the extent set forth below. Pt seen and examined much more alert and interactive today, son at bedside. sodium now 149, continue free water. Exam now shows MMM. Will continue sodium correction slowly.
--- NOTE | 2018-04-08 11:31 | Internal Med Progress Note ---
Date of Encounter: 04/08/18 Time of Encounter: 11:30 - Assessment and plan (1) Altered mental status Current Visit: Yes Status: Acute Assessment and plan: Acute AMS over the past several days. Pts. son reports worsening sx. No hx of dementia. Transient alteration of awareness possibly caused by UTI / dehydration and hypernatremia. Continue Iv fluids and ceftriaxone for UTI. Qualifiers: Altered mental status type: transient alteration of awareness Qualified Code(s): R40.4 - Transient alteration of awareness (2) Hypernatremia Current Visit: Yes Status: Acute Assessment and plan: Acute hypernatremia. Pt. hospitalized approx 5-6 weeks ago and placed on PO salt pills d/t hyponatremia. Will hold sodium pills. Pt. received 0.9 IV 1L fluid bolus in ED. Nephrology consult ordered in ED and I appreciate the consult. Monitor sodium status in f/u labs. Continue free water (3) Dehydration Current Visit: Yes Status: Acute Assessment and plan: Acute dehydration. Pt. taking two sodium pills daily d/t hx of hyponatremia. Currently hypernatremic w/sodium of 151. Trended down to 149. Continue free water. (4) Leukocytosis Current Visit: Yes Status: Acute Assessment and plan: Possibly secondary to UTI vs hemoconcentration from dehydration. Continue Iv fluids and ceftriaxone Qualifiers: Leukocytosis type: unspecified Qualified Code(s): D72.829 - Elevated white blood cell count, unspecified (5) CAD (coronary artery disease) Current Visit: Yes Status: Chronic Assessment and plan: Hx of CAD. Continuous cardiac telemetry. Continue pts. HTN and HLD medications. Aspirin daily. Echocardiogram in 11/19 shows LVEF of 60-65%.Pt had elevated troponins and was seen by cardiology. Troponemia soraida 2/2 to demand ischemia per cardiology and there will be no further intervention Qualifiers: Coronary Disease-Associated Artery/Lesion type: [place] artery [place] vs. transplanted heart: [place] heart Associated angina: without angina Qualified Code(s): I25.10 - Atherosclerotic heart disease of [place] coronary artery without angina pectoris (6) DVT prophylaxis Current Visit: Yes Status: Acute Assessment and plan: Heparin 5,000 units SQ Q12HR. Monitor pt. for signs of bleeding. (7) Weakness Current Visit: Yes Status: Acute Assessment and plan: Acutely progressing weakness over the past 4 weeks. Nutrition consult for PO supplementation. Falls/safety precautions, up with assist, bed rest w/bedside commode w/assist only. PT/OT consults ordered to assess for rehabilitation needs. (8) Protein-calorie malnutrition, moderate Current Visit: Yes Status: Acute Assessment and plan: Acute protein calorie malnutrition. Pt. reports reduced intake and weakness. Nutrition consult ordered for PO supplementation. (9) Anemia Current Visit: Yes Status: Chronic Assessment and plan: Hx of chronic anemia. Hgb 10.8 and Hct 34.3 today which is higher than pts. recent numbers. Pt. denies unusual bleeding. Monitor H/H in f/u labs. Continue pts. PO iron. Qualifiers: Anemia type: unspecified type Qualified Code(s): D64.9 - Anemia, unspecified (10) CKD (chronic kidney disease), stage III Current Visit: Yes Status: Chronic Assessment and plan: Hx of CKD. Currently stage 3 w/GFR of 30 and creatinine of 1.65. Will use IV fluids judiciously and avoid nephrotoxins. Monitor I&O. (11) Anxiety and depression Current Visit: Yes Status: Chronic Assessment and plan: Hx of chronic anxiety and depression. Continue pts. Zoloft. (12) Left foot pain Current Visit: Yes Status: Acute Assessment and plan: Acute pain in left foot of unknown cause. XR of left foot ordered to asses for possible fx or damage. (13) Hx of fall Current Visit: Yes Status: Chronic Assessment and plan: Hx of chronic falls. Falls/safety precautions, up with assist, bed rest w/ bedside commode w/assist only. XR of pts. left foot ordered d/t pain and hx of recent fall. PT/OT consults ordered to assess for rehabilitation needs. (14) GERD (gastroesophageal reflux disease) Current Visit: Yes Status: Chronic Assessment and plan: Hx of chronic GERD. IVP Zofran 4 mg Q6HR PPRN for N/V. IVP Protonix 40 mg. daily. Qualifiers: Esophagitis presence: esophagitis presence not specified Qualified Code(s) : K21.9 - Gastro-esophageal reflux disease without esophagitis (15) HTN (hypertension) Current Visit: Yes Status: Chronic Assessment and plan: Hx of chronic HTN. Monitor pt. and VS. Continue pts. Cozaar, hydralazine, amlodipine, and Lopressor. Qualifiers: Hypertension type: essential hypertension Qualified Code(s): I10 - Essential (primary) hypertension (16) HLD (hyperlipidemia) Current Visit: Yes Status: Chronic Assessment and plan: Hx Hx of chronic HLD. Lipid panel in a.m. labs. Continue pts. Pravastatin. Qualifiers: Hyperlipidemia type: pure hypercholesterolemia Qualified Code(s): E78.00 - Pure hypercholesterolemia, unspecified; E78.0 - Pure hypercholesterolemia - Time Spent With Patient Total time spent is greater than 50% in coordination of care (as documented) at patient's floor/unit and/or counseling patient: - Subjective Interval history: No acute events overnight - Constitutional Vitals: Temp Pulse Resp BP Pulse Ox 98.2 F 91 16 161/96 96 04/08/18 07:14 04/08/18 07:14 04/08/18 07:14 04/08/18 07:14 04/08/18 07:14 General appearance: Present: cooperative, A&O X 2, pleasant, no acute distress, answers questions appropriately Exam: Lethargic - Head Head exam: Present: atraumatic, normocephalic - Eye Eye exam: Present: PERRL, conjuntiva pink, sclera anicteric Pupils: Present: PERRL - Neck Neck exam general surgery: Present: supple, trachea midline. Absent: lymphadenopathy - Respiratory Respiratory exam: Present: CTAB. Absent: accessory muscle use, rales, rhonchi, wheezes - Cardiovascular Cardiovascular exam: Present: RRR, +S1, +S2. Absent: diastolic murmur, gallop, rubs, systolic murmur - GI/Abdominal GI/Abdominal exam: Present: normal bowel sounds, soft, no peritoneal signs. Absent: distended, tenderness - Extremities Exam Extremities exam: Present: warm, radial pulses palpable and symmetrical. Absent : calf tenderness, cyanotic, pedal edema - Neurological Exam Neurological exam: Present: CN II-XII intact, oriented X3, no focal deficits. Absent: pronater drift, facial droop, speech deficit - Skin Skin exam: Present: dry, intact Internal Medicine: Result - Labs CBC & Chem 7: 04/08/18 00:41 04/08/18 09:25 Labs: Short CBC 04/08/18 Range/Units 00:41 WBC 14.4 H (4.3-11.1) K/mcL Hgb 10.4 L (11.5-15.4) g/dL Hct 33.9 L (35.3-44.9) % Plt Count 161 (140-400) K/mcL Neutrophils # 11.7 H (1.6-8.9) K/mcL BMP 04/08/18 04/08/18 00:41 09:25 Sodium 153 H 149 H Potassium 3.2 L 3.3 L Chloride 118 H 118 H Carbon Dioxide 24 24 BUN 53 H 44 H Creatinine 1.10 0.94 Glucose 121 H 122 H Calcium 9.1 8.9 Cardiac Enzymes 04/07/18 04/08/18 Range/Units 17:52 00:41 Troponin I 0.10 H* 0.10 H* (< 0.04) ng/mL Liver Function 04/08/18 Range/Units 00:41 Total Bilirubin 0.3 (0.3-1.0) mg/dL AST 35 (13-39) Units/L ALT 25 (7-52) Units/L Alkaline Phosphatase 53 (34-104) Units/L Albumin 3.0 L (3.5-5.7) g/dL - ABG Interpretation ABG results: PT/INR, D-dimer PT 12.5 Seconds (9.4-12.1) H 04/08/18 00:41 - Impressions Impressions Foot X-Ray 04/07/18 16:07 IMPRESSION: 1. Soft tissue edema with no acute fracture or dislocation. D/ / Dread Harris MD / Dread Harris MD Interpreting Provider: Dread Harris MD Consult Discharge Plan - Plan Referrals: Daria Bedoya [Primary Care Provider] -
[2018-04-08] MEDS: Melatonin 3 MG TABLET PO SCH (20:42)
--- NOTE | 2018-04-08 23:47 | Podiatry Consult Note ---
Date of Encounter: 04/09/18 Time of Encounter: 19:30 Assessment and Plan (1) Acquired left foot drop Current visit: Yes Status: Acute left foot drop progressed over last 2-4 weeks, admitted with hypernatremia no report/history of stroke which can be a cause of these types of contractures will see if bracing dept can bring AFO to patient to help her ambulate more safely, if off the shelf brace will not fit then she may require a custom brace. she is not a surgical candidate. if fails bracing would consider botox injections as an outpatient. f/u as outpatient in office. History of Present Illness HPI: Ms. Rolle is a 82 year old female who is a poor historian and unable to provide history. Nurse from day is bedside and relates her son had told her that the problem had developed over the last month. He had told her it had gotten progressively worse over the last couple weeks causing difficulty walking. No report of previous CVA in chart. Past Med Surg Social Fam HX - Past Medical History Medical history: coronary artery disease, GERD, hypertension, renal disease, seizures Additional medical history: falls Psychiatric history: anxiety, depression - Past Surgical History Surgical History: appendectomy, hip replacement Additional surgical history: left hip replacement - Social History Smoking Status: Never smoker Packs per day: Reports quitting >50 years ago Smokeless Tobacco Status: No Alcohol use: none Drug use: none - Family History Mother Race: Family Member Ethnicity: Non- Living Status: Age at : 80 Cause of : Old age Hx Family Cancer: Yes (Breast cancer) Father Race: Family Member Ethnicity: Non- Living Status: Age at : 60 Cause of : CVA Hx Family Cardiac Disorders: Yes (CVA) Hx Family Neuromuscular Disorders: Yes (CVA) Brother Race: Family Member Ethnicity: Non- Living Status: Still Living Hx Family Medical Disorders: No Sister Race: Family Member Ethnicity: Non- Living Status: Still Living Hx Family Neurologic Disorders: Yes (Dementia) Medications and Allergies Loratadine [Claritin] 10 mg PO DAILY 10/12/16 [History] Pantoprazole Sodium [Protonix] 40 mg PO DAILY 10/12/16 [History] Aspirin 81 mg PO DAILY 12/01/16 [History] Calcium Carbonate/Vitamin D3 [Calcium 500-Vit D3 200 Caplet] 500 mg PO DAILY [History] Losartan Potassium [Cozaar] 50 mg PO BID #60 tab 12/03/16 [Rx] Pravastatin Sodium [Pravachol] 20 mg PO HS #30 tablet 12/03/16 [Rx] Metoprolol [Lopressor] 25 mg PO BID 11/04/17 [History] Melatonin 3 mg PO HS tablet 11/09/17 [Rx] Benzonatate 100 mg PO DAILY PRN 12/02/17 [History] Guaifenesin [Mucinex] 600 mg PO BID PRN 12/02/17 [History] Lactobacillus Acidophilus [Acidophilus] 1 tab PO BID 12/02/17 [History] Calcium Carbonate [Tums] 1,000 mg PO TID tab.chew 12/05/17 [Rx] Docusate [Colace] 100 mg PO BID PRN capsule 12/21/17 [Rx] Lidocaine Patch [Lidoderm 5% patch] 1 patch TD DAILY 02/13/18 [History] Sodium Chloride [Sodium Chloride Tab] 1 gm PO BID 02/13/18 [History] hydrALAZINE [HydrALAZINE] 50 mg PO Q8HR 02/13/18 [History] Tramadol HCl [Ultram] 50 mg PO Q6HR PRN 4 Days #10 02/16/18 [Rx] Amlodipine Besylate 2.5 mg PO DAILY 04/07/18 [History] Ferrous Sulfate [Iron] 325 mg PO DAILY 04/07/18 [History] Multivit-Min/FA/Lycopen/Lutein [A Thru [employer] Multivit Tab] 1 tab PO DAILY 04/19 [History] Sertraline [Zoloft] 50 mg PO DAILY 04/07/18 [History] 3 Allergy/AdvReac Type Severity Reaction Status Date / Time aspirin AdvReac See Verified 02/12/18 22:06 Comments All Systems Reviewed: The remainder of the systems were reviewed and are negative - Constitutional Constitutional: no fever(s) - Cardiovascular Cardiovascular: no chest pain, no dyspnea - Respiratory Respiratory: no cough, no dyspnea - Musculoskeletal Musculoskeletal: abnormal gait Physical Exam - Constitutional Vitals: Temp Pulse Resp BP Pulse Ox 99.4 F 97 16 133/66 96 04/08/18 23:39 04/08/18 23:39 04/08/18 23:39 04/08/18 23:39 04/08/18 23:39 Exam: left foot drop which is semi-reducible. no open lesions. feet are warm to touch. unable to assess neurological status due to patient ability to participate in exam xray: plantarflexion contracture at the ankle. Results - Labs Result Diagrams: 04/09/18 04:57 04/09/18 04:57 Labs: Abnormal lab results WBC 14.4 K/mcL (4.3-11.1) H 04/08/18 00:41 RBC 3.45 M/mcL (3.82-4.97) L 04/08/18 00:41 Hgb 10.4 g/dL (11.5-15.4) L 04/08/18 00:41 Hct 33.9 % (35.3-44.9) L 04/08/18 00:41 MCHC 30.7 g/dL (31.6-35.5) L 04/08/18 00:41 Neutrophils # 11.7 K/mcL (1.6-8.9) H 04/08/18 00:41 PT 12.5 Seconds (9.4-12.1) H 04/08/18 00:41 Sodium 149 mEq/L (136-145) H 04/08/18 09:25 Potassium 3.3 mEq/L (3.5-5.1) L 04/08/18 09:25 Chloride 118 mEq/L (98-107) H 04/08/18 09:25 BUN 44 mg/dL (8-23) H 04/08/18 09:25 Est GFR (Non-Af Amer) 57 (> 60) L 04/08/18 09:25 BUN/Creatinine Ratio 47 (6-26) H 04/08/18 09:25 Glucose 122 mg/dL (70-105) H 04/08/18 09:25 Hemoglobin A1c 5.9 % (-5.6) H 04/08/18 00:41 Calculated Osmolality 320 (280-300) H 04/08/18 09:25 Troponin I 0.10 ng/mL (< 0.04) H* 04/08/18 00:41 B-Natriuretic Peptide 147 pg/mL (Less than 100) H 04/07/18 11:59 Serum Total Protein 5.7 g/dL (6.4-8.9) L 04/08/18 00:41 Albumin 3.0 g/dL (3.5-5.7) L 04/08/18 00:41 Urine Clarity Cloudy (Clear) A 04/07/18 11:50 Urine Protein 30 mg/dL (Neg-Trace) H 04/07/18 11:50 Urine Blood Large (Negative) H 04/07/18 11:50 Ur Leukocyte Esterase Moderate (Negative) H 04/07/18 11:50 Urine Microscopic RBC 5-15 per hpf (0-3) H 04/07/18 11:50 Urine Microscopic WBC 5-15 per hpf (0-3) H 04/07/18 11:50 Ur Squamous Epith Cells Many per lpf (None-Few) H 04/07/18 11:50 Urine Bacteria Moderate per hpf (None-Few) H 04/07/18 11:50 Granular Casts Few per lpf (None Seen) H 04/07/18 11:50 Ur Culture Indicated? NO. (NO) A 04/07/18 11:50 Protein/Creatinin Ratio 1.53 mg/mg (0.00-0.20) H 04/07/18 23:05 Urine Total Protein 145 mg/dL (1-14) H 04/07/18 23:05 H & H 04/08/18 Range/Units 00:41 Hgb 10.4 L (11.5-15.4) g/dL Hct 33.9 L (35.3-44.9) % All other labs normal. Consult Discharge Plan - Plan Referrals: Daria Bedoya [Primary Care Provider] -
[2018-04-09] MEDS: D5% in Water 1,000 ML IVC SCH (02:16)
[2018-04-09] MEDS: *HR* Heparin 5,000 UNIT/ML VIAL SQ SCH ×2 (05:41→16:02)
[2018-04-09 05:45] LABS: Eosinophils % 0.5 %; Mean Platelet Volume 10.6 fL (9.4-12.4)
[2018-04-09 05:47] LABS: Basophils % 0.2 %; Eosinophils # 0.1 K/mcL (0.0-0.6); Hematocrit 31.4 % (35.3-44.9); Hemoglobin 9.8 g/dL (11.5-15.4); Immature Granulocytes % 0.8 % (0-4); Lymphocytes # 2.7 K/mcL (0.6-4.6); Lymphocytes % 10.4 %; Mean Corpuscular HGB Conc 31.2 g/dL (31.6-35.5); Mean Corpuscular Hemoglobin 30.2 pg (28.0-33.3); Mean Corpuscular Volume 96.6 fL (83.0-100.0); Platelet Count 161 K/mcL (140-400); Red Blood Count 3.25 M/mcL (3.82-4.97); Segmented Neutrophils % 84.1 %
[2018-04-09 06:03] LABS: Basophils # 0.1 K/mcL (0.0-0.2); Neutrophils # 21.9 K/mcL (1.6-8.9)
[2018-04-09 06:09] LABS: Calcium 8.2 mg/dL (8.6-10.3); Potassium 2.8 mEq/L (3.5-5.1)
[2018-04-09 06:38] LABS: Platelet Estimate Normal (Normal); Reactive Lymphocytes Present (Not Present)
[2018-04-09] MEDS: hydrALAZINE 25 MG TABLET PO SCH ×4 (07:44→23:21)
--- NOTE | 2018-04-09 07:44 | Nephrology Progress Note ---
Date of Encounter: 04/09/18 Time of Encounter: 07:43 - Assessment and Plan (1) Hypernatremia Current Visit: Yes Status: Acute NA 137. Fluids d/yosef. Encourage adequate water intake by mouth. Will sign off at this time, reconsult as needed. (2) Altered mental status Current Visit: Yes Status: Acute Seems to be improved. Qualifiers: Altered mental status type: transient alteration of awareness Qualified Code(s): R40.4 - Transient alteration of awareness (3) Dehydration Current Visit: Yes Status: Acute Encourage PO intake. Subjective Principal diagnosis: AMS, high temperature, Hypernatremia Interval history: Pt seen and examined. Denies nausea/vomiting or diarrhea. Objective - Vital Signs Vital signs: Vital Signs Temp Pulse Resp BP Pulse Ox 04/09/18 07:19 98.7 F 81 19 107/69 96 04/09/18 04:11 97.8 F 89 15 113/71 97 04/08/18 23:39 99.4 F 97 16 133/66 96 04/08/18 20:02 97.8 F 100 15 109/68 97 04/08/18 15:37 98.1 F 84 18 109/66 97 04/08/18 12:30 98.2 F 80 19 128/71 98 Intake and Output 04/08/18 04/08/18 04/09/18 15:59 23:59 07:59 Intake Total 600 / 600 1000 / 1000 Output Total 500 / 500 Balance 600 / 600 500 / 500 Intake: IV Fluids 1000 / 1000 Dextrose 5% 1,000 ML @ 60 mls/ 1000 / 1000 hr IVC .[id number] [facility] Rx#: [id number] Oral 600 / 600 Output: Catheter 500 / 500 Other: Meal Lunch Percent of Meal Consumed 25% Weight 64.5 kg Patient Weight 04/09/18 23:59 Weight 64.5 kg - General Appearance General appearance: Present: chronically ill, frail EENT: Present: ATNC, hearing intact, vision intact Neck: Present: supple Respiratory: Present: clear Cardiology: Present: no edema, normal S1, normal S2 Gastrointestinal: Present: normoactive bowel sounds, no tenderness, no guarding Integumentary: Present: no rash, warm and dry Neurologic: Present: confused Psychiatric: Present: mood/affect appropriate, cooperative - Lab 04/09/18 04:57 04/09/18 04:57 Most recent lab results Calcium 8.2 mg/dL (8.6-10.3) L 04/09/18 04:57 Phosphorus 3.9 mg/dL (2.7-4.5) 04/07/18 11:59 Magnesium 2.2 mg/dL (1.6-2.6) 04/07/18 11:59 Urine Creatinine 95 mg/dL 04/07/18 23:05 Urine Sodium 39.7 mEq/L 04/07/18 23:05 Urine Total Protein 145 mg/dL (1-14) H 04/07/18 23:05 Consult Discharge Plan - Plan Referrals: Daria Bedoya [Primary Care Provider] -
--- NOTE | 2018-04-09 08:43 | Electrocardiograph Report ---
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
[2018-04-09] MEDS: Aspirin 81 MG TAB.CHEW PO SCH (09:22)
[2018-04-09] MEDS: Lactobacillus 1 EACH CAP.SPRINK PO SCH ×2 (09:22→23:21)
[2018-04-09] MEDS: Multivit/Ca/Min/Fe/FA 1 TAB TABLET PO SCH (09:22)
[2018-04-09] MEDS: amLODIPine 5 MG TABLET PO SCH (09:23)
[2018-04-09] MEDS: Cholecalciferol (D-3) 1,000 UNIT TABLET PO SCH (09:23)
[2018-04-09] MEDS: Loratadine 10 MG TABLET PO SCH (09:23)
[2018-04-09] MEDS: cefTRIAXone 2,000 MG in Water for inj. (sterile) 20 ML 20 ML IVP SCH (11:48)
--- NOTE | 2018-04-09 11:51 | Internal Med Progress Note ---
Date of Encounter: 04/09/18 Time of Encounter: 11:40 - Assessment and plan (1) Altered mental status Current Visit: Yes Status: Acute Assessment and plan: Acute AMS over the past several days. Pts. son reports worsening sx. No hx of dementia. Transient alteration of awareness possibly caused by UTI / dehydration and hypernatremia. Continue Iv fluids and ceftriaxone for UTI. Qualifiers: Altered mental status type: transient alteration of awareness Qualified Code(s): R40.4 - Transient alteration of awareness (2) Leukocytosis Current Visit: Yes Status: Acute Assessment and plan: Possibly secondary to UTI vs hemoconcentration from dehydration. Continue Iv fluids and ceftriaxone. WBC trended up to 26. Will repeat blood cultures. continue antibiotics Qualifiers: Leukocytosis type: unspecified Qualified Code(s): D72.829 - Elevated white blood cell count, unspecified (3) Left foot pain Current Visit: Yes Status: Acute Assessment and plan: Acute pain in left foot with foot drop. XR of left foot showed no fracture or dislocation. Seen by podiatry who recommend bracing and possible outpatient botox injections if bracing is unsuccessful (4) Hypernatremia Current Visit: Yes Status: Acute Assessment and plan: Acute hypernatremia. Pt. hospitalized approx 5-6 weeks ago and placed on PO salt pills d/t hyponatremia. Will hold sodium pills. Monitor sodium status in f/ u labs. Continue free water. Hypernatremia resolved this am (5) Dehydration Current Visit: Yes Status: Acute Assessment and plan: Acute dehydration. Resolved with hydration (6) CAD (coronary artery disease) Current Visit: Yes Status: Chronic Assessment and plan: Hx of CAD. Continuous cardiac telemetry. Continue pts. HTN and HLD medications. Aspirin daily. Echocardiogram in 11/19 shows LVEF of 60-65%.Pt had elevated troponins and was seen by cardiology. Troponemia soraida 2/2 to demand ischemia per cardiology and there will be no further intervention Qualifiers: Coronary Disease-Associated Artery/Lesion type: [place] artery [place] vs. transplanted heart: [place] heart Associated angina: without angina Qualified Code(s): I25.10 - Atherosclerotic heart disease of [place] coronary artery without angina pectoris (7) DVT prophylaxis Current Visit: Yes Status: Acute Assessment and plan: Heparin 5,000 units SQ Q12HR. Monitor pt. for signs of bleeding. (8) Weakness Current Visit: Yes Status: Acute Assessment and plan: Acutely progressing weakness over the past 4 weeks. Nutrition consult for PO supplementation. Falls/safety precautions, up with assist, bed rest w/bedside commode w/assist only. PT/OT consults ordered to assess for rehabilitation needs. (9) Protein-calorie malnutrition, moderate Current Visit: Yes Status: Acute Assessment and plan: Acute protein calorie malnutrition. Pt. reports reduced intake and weakness. Nutrition consult ordered for PO supplementation. (10) Anemia Current Visit: Yes Status: Chronic Assessment and plan: Hx of chronic anemia. Hgb 10.8 and Hct 34.3 today which is higher than pts. recent numbers. Pt. denies unusual bleeding. Monitor H/H in f/u labs. Continue pts. PO iron. Qualifiers: Anemia type: unspecified type Qualified Code(s): D64.9 - Anemia, unspecified (11) CKD (chronic kidney disease), stage III Current Visit: Yes Status: Chronic Assessment and plan: Hx of CKD. Currently stage 3 w/GFR of 30 and creatinine of 1.65. Will use IV fluids judiciously and avoid nephrotoxins. Monitor I&O. (12) Anxiety and depression Current Visit: Yes Status: Chronic Assessment and plan: Hx of chronic anxiety and depression. Continue pts. Zoloft. (13) Hx of fall Current Visit: Yes Status: Chronic Assessment and plan: Hx of chronic falls. Falls/safety precautions, up with assist, bed rest w/ bedside commode w/assist only. XR of pts. left foot ordered d/t pain and hx of recent fall. PT/OT consults ordered to assess for rehabilitation needs. (14) GERD (gastroesophageal reflux disease) Current Visit: Yes Status: Chronic Assessment and plan: Hx of chronic GERD. IVP Zofran 4 mg Q6HR PPRN for N/V. IVP Protonix 40 mg. daily. Qualifiers: Esophagitis presence: esophagitis presence not specified Qualified Code(s) : K21.9 - Gastro-esophageal reflux disease without esophagitis (15) HTN (hypertension) Current Visit: Yes Status: Chronic Assessment and plan: Hx of chronic HTN. Monitor pt. and VS. Continue pts. Cozaar, hydralazine, amlodipine, and Lopressor. Qualifiers: Hypertension type: essential hypertension Qualified Code(s): I10 - Essential (primary) hypertension (16) HLD (hyperlipidemia) Current Visit: Yes Status: Chronic Assessment and plan: Hx Hx of chronic HLD. Lipid panel in a.m. labs. Continue pts. Pravastatin. Qualifiers: Hyperlipidemia type: pure hypercholesterolemia Qualified Code(s): E78.00 - Pure hypercholesterolemia, unspecified; E78.0 - Pure hypercholesterolemia - Time Spent With Patient Total time spent is greater than 50% in coordination of care (as documented) at patient's floor/unit and/or counseling patient: - Subjective Interval history: No acute events overnight - Constitutional Vitals: Temp Pulse Resp BP Pulse Ox 99.2 F 88 20 119/89 97 04/09/18 11:47 04/09/18 11:47 04/09/18 11:47 04/09/18 11:47 04/09/18 11:47 General appearance: Present: cooperative, A&O X 2, pleasant, no acute distress, answers questions appropriately - Head Head exam: Present: atraumatic, normocephalic - Eye Eye exam: Present: PERRL, conjuntiva pink, sclera anicteric Pupils: Present: PERRL - Neck Neck exam general surgery: Present: supple, trachea midline. Absent: lymphadenopathy - Respiratory Respiratory exam: Present: CTAB. Absent: accessory muscle use, rales, rhonchi, wheezes - Cardiovascular Cardiovascular exam: Present: RRR, +S1, +S2. Absent: diastolic murmur, gallop, rubs, systolic murmur - GI/Abdominal GI/Abdominal exam: Present: normal bowel sounds, soft, no peritoneal signs. Absent: distended, tenderness - Extremities Exam Extremities exam: Present: warm, radial pulses palpable and symmetrical. Absent : calf tenderness, cyanotic, pedal edema Additional comments: left foot drop - Neurological Exam Neurological exam: Present: CN II-XII intact, oriented X3, no focal deficits. Absent: pronater drift, facial droop, speech deficit - Skin Skin exam: Present: dry, intact Internal Medicine: Result - Labs CBC & Chem 7: 04/09/18 04:57 04/09/18 04:57 Labs: Short CBC 04/09/18 Range/Units 04:57 WBC 26.0 H D (4.3-11.1) K/mcL Hgb 9.8 L (11.5-15.4) g/dL Hct 31.4 L (35.3-44.9) % Plt Count 161 (140-400) K/mcL Neutrophils # 21.9 H (1.6-8.9) K/mcL BMP 04/09/18 04:57 Sodium 137 D Potassium 2.8 L Chloride 107 Carbon Dioxide 20 L BUN 44 H Creatinine 1.07 Glucose 146 H Calcium 8.2 L - ABG Interpretation ABG results: PT/INR, D-dimer PT 12.5 Seconds (9.4-12.1) H 04/08/18 00:41 Consult Discharge Plan - Plan Referrals: Daria Bedoya [Primary Care Provider] -
[2018-04-09] MEDS: Melatonin 3 MG TABLET PO SCH (23:21)
[2018-04-10 06:10] LABS: Hemoglobin 9.5 g/dL (11.5-15.4); Immature Granulocytes % 1.4 % (0-4); Lymphocytes % 10.1 %; Mean Corpuscular HGB Conc 31.7 g/dL (31.6-35.5); Mean Corpuscular Hemoglobin 29.7 pg (28.0-33.3); Mean Corpuscular Volume 93.8 fL (83.0-100.0); Mean Platelet Volume 10.9 fL (9.4-12.4); Monocytes % 3.7 %; Platelet Count 174 K/mcL (140-400); Red Cell Distribution Width 12.8 % (11.5-14.5); Segmented Neutrophils % 82.6 %
[2018-04-10 06:11] LABS: Basophils % 0.2 %; Eosinophils # 0.4 K/mcL (0.0-0.6); Lymphocytes # 1.8 K/mcL (0.6-4.6); Monocytes # 0.7 K/mcL (0.0-1.3)
[2018-04-10] MEDS: *HR* Heparin 5,000 UNIT/ML VIAL SQ SCH ×2 (06:14→17:56)
[2018-04-10 06:37] LABS: BUN/Creatinine Ratio 43 (6-26); Blood Urea Nitrogen 38 mg/dL (8-23); Calcium 8.1 mg/dL (8.6-10.3); Carbon Dioxide 19 mEq/L (23-29); Chloride 108 mEq/L (98-107); Glucose 112 mg/dL (70-105); Osmolality,Calculated 286 (280-300); Sodium 133 mEq/L (136-145); eGFR For African Americans > 60 (> 60); eGFR For Non-African Americans > 60 (> 60)
[2018-04-10] MEDS: amLODIPine 5 MG TABLET PO SCH (10:05)
[2018-04-10] MEDS: hydrALAZINE 25 MG TABLET PO SCH ×3 (10:05→22:05)
[2018-04-10] MEDS: Lactobacillus 1 EACH CAP.SPRINK PO SCH ×2 (10:05→22:04)
[2018-04-10] MEDS: Aspirin 81 MG TAB.CHEW PO SCH (10:05)
[2018-04-10] MEDS: Cholecalciferol (D-3) 1,000 UNIT TABLET PO SCH (10:05)
[2018-04-10] MEDS: Loratadine 10 MG TABLET PO SCH (10:06)
[2018-04-10] MEDS: Multivit/Ca/Min/Fe/FA 1 TAB TABLET PO SCH (10:06)
--- NOTE | 2018-04-10 11:28 | Internal Med Progress Note ---
Date of Encounter: 04/10/18 Time of Encounter: 11:30 - Assessment and plan (1) C. difficile diarrhea Current Visit: Yes Status: Acute Assessment and plan: Stool studies came back positive for c diff. Started on po vancomycin (2) Altered mental status Current Visit: Yes Status: Acute Assessment and plan: Acute AMS over the past several days. Pts. son reports worsening sx. No hx of dementia. Transient alteration of awareness possibly caused by UTI / dehydration / c difficile infection and hypernatremia. Continue Iv fluids. PO vac for c diff. Will d/c ceftriaxone and start on ciprofloxacin for UTI Qualifiers: Altered mental status type: transient alteration of awareness Qualified Code(s): R40.4 - Transient alteration of awareness (3) Leukocytosis Current Visit: Yes Status: Acute Assessment and plan: Possibly secondary to UTI vs c diff. Continue Iv fluids . Start on po vancomycin. Switch ceftriaxone to cipr due to c diff. F/U repeat blood cultures. continue antibiotics Qualifiers: Leukocytosis type: unspecified Qualified Code(s): D72.829 - Elevated white blood cell count, unspecified (4) Left foot pain Current Visit: Yes Status: Acute Assessment and plan: Acute pain in left foot with foot drop. XR of left foot showed no fracture or dislocation. Seen by podiatry who recommend bracing and possible outpatient botox injections if bracing is unsuccessful (5) Hypernatremia Current Visit: Yes Status: Acute Assessment and plan: Acute hypernatremia. Pt. hospitalized approx 5-6 weeks ago and placed on PO salt pills d/t hyponatremia. Will hold sodium pills. Monitor sodium status in f/ u labs. Continue free water. Hypernatremia resolved this am (6) Dehydration Current Visit: Yes Status: Acute Assessment and plan: Acute dehydration. Resolved with hydration (7) CAD (coronary artery disease) Current Visit: Yes Status: Chronic Assessment and plan: Hx of CAD. Continuous cardiac telemetry. Continue pts. HTN and HLD medications. Aspirin daily. Echocardiogram in 11/19 shows LVEF of 60-65%.Pt had elevated troponins and was seen by cardiology. Troponemia likley 2/2 to demand ischemia per cardiology and there will be no further intervention Qualifiers: Coronary Disease-Associated Artery/Lesion type: [place] artery [place] vs. transplanted heart: [place] heart Associated angina: without angina Qualified Code(s): I25.10 - Atherosclerotic heart disease of [place] coronary artery without angina pectoris (8) DVT prophylaxis Current Visit: Yes Status: Acute Assessment and plan: Heparin 5,000 units SQ Q12HR. Monitor pt. for signs of bleeding. (9) Weakness Current Visit: Yes Status: Acute Assessment and plan: Acutely progressing weakness over the past 4 weeks. Nutrition consult for PO supplementation. Falls/safety precautions, up with assist, bed rest w/bedside commode w/assist only. PT/OT consults ordered to assess for rehabilitation needs. (10) Protein-calorie malnutrition, moderate Current Visit: Yes Status: Acute Assessment and plan: Acute protein calorie malnutrition. Pt. reports reduced intake and weakness. Nutrition consult ordered for PO supplementation. (11) Anemia Current Visit: Yes Status: Chronic Assessment and plan: Hx of chronic anemia. Hgb 10.8 and Hct 34.3 today which is higher than pts. recent numbers. Pt. denies unusual bleeding. Monitor H/H in f/u labs. Continue pts. PO iron. Qualifiers: Anemia type: unspecified type Qualified Code(s): D64.9 - Anemia, unspecified (12) CKD (chronic kidney disease), stage III Current Visit: Yes Status: Chronic Assessment and plan: Hx of CKD. Currently stage 3 w/GFR of 30 and creatinine of 1.65. Will use IV fluids judiciously and avoid nephrotoxins. Monitor I&O. (13) Anxiety and depression Current Visit: Yes Status: Chronic Assessment and plan: Hx of chronic anxiety and depression. Continue pts. Zoloft. (14) Hx of fall Current Visit: Yes Status: Chronic Assessment and plan: Hx of chronic falls. Falls/safety precautions, up with assist, bed rest w/ bedside commode w/assist only. XR of pts. left foot ordered d/t pain and hx of recent fall. PT/OT consults ordered to assess for rehabilitation needs. (15) GERD (gastroesophageal reflux disease) Current Visit: Yes Status: Chronic Assessment and plan: Hx of chronic GERD. IVP Zofran 4 mg Q6HR PPRN for N/V. IVP Protonix 40 mg. daily. Qualifiers: Esophagitis presence: esophagitis presence not specified Qualified Code(s) : K21.9 - Gastro-esophageal reflux disease without esophagitis (16) HTN (hypertension) Current Visit: Yes Status: Chronic Assessment and plan: Hx of chronic HTN. Monitor pt. and VS. Continue pts. Cozaar, hydralazine, amlodipine, and Lopressor. Qualifiers: Hypertension type: essential hypertension Qualified Code(s): I10 - Essential (primary) hypertension (17) HLD (hyperlipidemia) Current Visit: Yes Status: Chronic Assessment and plan: Hx Hx of chronic HLD. Lipid panel in a.m. labs. Continue pts. Pravastatin. Qualifiers: Hyperlipidemia type: pure hypercholesterolemia Qualified Code(s): E78.00 - Pure hypercholesterolemia, unspecified; E78.0 - Pure hypercholesterolemia - Time Spent With Patient Total time spent is greater than 50% in coordination of care (as documented) at patient's floor/unit and/or counseling patient: - Subjective Interval history: No acute events overnight - Constitutional Vitals: Temp Pulse Resp BP Pulse Ox 98.9 F 98 18 111/73 98 04/10/18 07:32 04/10/18 07:32 04/10/18 07:32 04/10/18 07:32 04/10/18 10:17 General appearance: Present: cooperative, A&O X 2, pleasant, no acute distress, answers questions appropriately - Head Head exam: Present: atraumatic, normocephalic - Eye Eye exam: Present: PERRL, conjuntiva pink, sclera anicteric Pupils: Present: PERRL - Neck Neck exam general surgery: Present: supple, trachea midline. Absent: lymphadenopathy - Respiratory Respiratory exam: Present: CTAB. Absent: accessory muscle use, rales, rhonchi, wheezes - Cardiovascular Cardiovascular exam: Present: RRR, +S1, +S2. Absent: diastolic murmur, gallop, rubs, systolic murmur - GI/Abdominal GI/Abdominal exam: Present: normal bowel sounds, soft, no peritoneal signs. Absent: distended, tenderness - Extremities Exam Extremities exam: Present: warm, radial pulses palpable and symmetrical. Absent : calf tenderness, cyanotic, pedal edema - Neurological Exam Neurological exam: Present: CN II-XII intact, oriented X3, no focal deficits. Absent: pronater drift, facial droop, speech deficit - Skin Skin exam: Present: dry, intact Internal Medicine: Result - Labs CBC & Chem 7: 04/10/18 05:27 04/10/18 05:27 Labs: Short CBC 04/10/18 Range/Units 05:27 WBC 18.2 H (4.3-11.1) K/mcL Hgb 9.5 L (11.5-15.4) g/dL Hct 30.0 L (35.3-44.9) % Plt Count 174 (140-400) K/mcL Neutrophils # 15.0 H (1.6-8.9) K/mcL BMP 04/10/18 05:27 Sodium 133 L Potassium 4.0 Chloride 108 H Carbon Dioxide 19 L BUN 38 H Creatinine 0.88 Glucose 112 H Calcium 8.1 L - ABG Interpretation ABG results: PT/INR, D-dimer PT 12.5 Seconds (9.4-12.1) H 04/08/18 00:41 Consult Discharge Plan - Plan Referrals: Daria Bedoya [Primary Care Provider] -
[2018-04-10] MEDS: Vancomycin Oral Soln 125 MG/2.5 ML UDC PO SCH ×3 (13:02→22:05)
[2018-04-10] MEDS: Melatonin 3 MG TABLET PO SCH (22:04)
[2018-04-11] MEDS: *HR* Heparin 5,000 UNIT/ML VIAL SQ SCH ×2 (05:08→17:54)
[2018-04-11 05:29] LABS: Basophils % 0.1 %; Eosinophils # 0.2 K/mcL (0.0-0.6); Eosinophils % 1.6 %; Hematocrit 28.7 % (35.3-44.9); Hemoglobin 9.2 g/dL (11.5-15.4); Immature Granulocytes % 2.3 % (0-4); Lymphocytes # 1.9 K/mcL (0.6-4.6); Lymphocytes % 12.6 %; Mean Corpuscular HGB Conc 32.1 g/dL (31.6-35.5); Mean Corpuscular Hemoglobin 30.4 pg (28.0-33.3); Mean Corpuscular Volume 94.7 fL (83.0-100.0); Mean Platelet Volume 10.6 fL (9.4-12.4); Monocytes # 0.7 K/mcL (0.0-1.3); Monocytes % 4.8 %; Platelet Count 225 K/mcL (140-400); Red Blood Count 3.03 M/mcL (3.82-4.97); Red Cell Distribution Width 12.9 % (11.5-14.5); Segmented Neutrophils % 78.6 %
[2018-04-11 05:49] LABS: BUN/Creatinine Ratio 42 (6-26); Blood Urea Nitrogen 33 mg/dL (8-23); Calcium 8.2 mg/dL (8.6-10.3); Carbon Dioxide 19 mEq/L (23-29); Chloride 107 mEq/L (98-107); Glucose 111 mg/dL (70-105); Osmolality,Calculated 282 (280-300); Potassium 4.1 mEq/L (3.5-5.1); Sodium 132 mEq/L (136-145); eGFR For African Americans > 60 (> 60); eGFR For Non-African Americans > 60 (> 60)
[2018-04-11] MEDS: hydrALAZINE 25 MG TABLET PO SCH ×3 (09:47→22:26)
[2018-04-11] MEDS: Multivit/Ca/Min/Fe/FA 1 TAB TABLET PO SCH (09:47)
[2018-04-11] MEDS: Loratadine 10 MG TABLET PO SCH (09:47)
[2018-04-11] MEDS: Aspirin 81 MG TAB.CHEW PO SCH (09:47)
[2018-04-11] MEDS: amLODIPine 5 MG TABLET PO SCH (09:47)
[2018-04-11] MEDS: Lactobacillus 1 EACH CAP.SPRINK PO SCH ×2 (09:48→22:25)
[2018-04-11] MEDS: Cholecalciferol (D-3) 1,000 UNIT TABLET PO SCH (09:48)
[2018-04-11] MEDS: Vancomycin Oral Soln 125 MG/2.5 ML UDC PO SCH ×4 (10:15→22:56)
--- NOTE | 2018-04-11 11:27 | Internal Med Progress Note ---
Date of Encounter: 04/11/18 Time of Encounter: 11:20 - Assessment and plan (1) C. difficile diarrhea Current Visit: Yes Status: Acute Assessment and plan: Severe c diff infection with WBC >15. Stool studies came back positive for c diff. Started on po vancomycin (2) Altered mental status Current Visit: Yes Status: Acute Assessment and plan: Acute AMS over the past several days. Pts. son reports worsening sx. No hx of dementia. Transient alteration of awareness possibly caused by UTI / dehydration / c difficile infection and hypernatremia. Continue Iv fluids. PO vac for c diff. Completed antibiotic course for UTI. Will d/c ciprofloxacin Qualifiers: Altered mental status type: transient alteration of awareness Qualified Code(s): R40.4 - Transient alteration of awareness (3) Leukocytosis Current Visit: Yes Status: Acute Assessment and plan: Possibly secondary to UTI vs c diff. Continue Iv fluids . Start on po vancomycin. F/U repeat blood cultures. continue antibiotics Qualifiers: Leukocytosis type: unspecified Qualified Code(s): D72.829 - Elevated white blood cell count, unspecified (4) Left foot pain Current Visit: Yes Status: Acute Assessment and plan: Acute pain in left foot with foot drop. XR of left foot showed no fracture or dislocation. Seen by podiatry who recommend bracing and possible outpatient botox injections if bracing is unsuccessful (5) Hypernatremia Current Visit: Yes Status: Acute Assessment and plan: Acute hypernatremia. Pt. hospitalized approx 5-6 weeks ago and placed on PO salt pills d/t hyponatremia. Will hold sodium pills. Monitor sodium status in f/ u labs. Continue free water. Hypernatremia resolved this am (6) Dehydration Current Visit: Yes Status: Acute Assessment and plan: Acute dehydration. Resolved with hydration (7) CAD (coronary artery disease) Current Visit: Yes Status: Chronic Assessment and plan: Hx of CAD. Continuous cardiac telemetry. Continue pts. HTN and HLD medications. Aspirin daily. Echocardiogram in 11/19 shows LVEF of 60-65%.Pt had elevated troponins and was seen by cardiology. Troponemia likley 2/2 to demand ischemia per cardiology and there will be no further intervention Qualifiers: Coronary Disease-Associated Artery/Lesion type: [place] artery [place] vs. transplanted heart: [place] heart Associated angina: without angina Qualified Code(s): I25.10 - Atherosclerotic heart disease of [place] coronary artery without angina pectoris (8) DVT prophylaxis Current Visit: Yes Status: Acute Assessment and plan: Heparin 5,000 units SQ Q12HR. Monitor pt. for signs of bleeding. (9) Weakness Current Visit: Yes Status: Acute Assessment and plan: Acutely progressing weakness over the past 4 weeks. Nutrition consult for PO supplementation. Falls/safety precautions, up with assist, bed rest w/bedside commode w/assist only. PT/OT consults ordered to assess for rehabilitation needs. (10) Protein-calorie malnutrition, moderate Current Visit: Yes Status: Acute Assessment and plan: Acute protein calorie malnutrition. Pt. reports reduced intake and weakness. Nutrition consult ordered for PO supplementation. (11) Anemia Current Visit: Yes Status: Chronic Assessment and plan: Hx of chronic anemia. Hgb 10.8 and Hct 34.3 today which is higher than pts. recent numbers. Pt. denies unusual bleeding. Monitor H/H in f/u labs. Continue pts. PO iron. Qualifiers: Anemia type: unspecified type Qualified Code(s): D64.9 - Anemia, unspecified (12) CKD (chronic kidney disease), stage III Current Visit: Yes Status: Chronic Assessment and plan: Hx of CKD. Currently stage 3 w/GFR of 30 and creatinine of 1.65. Will use IV fluids judiciously and avoid nephrotoxins. Monitor I&O. (13) Anxiety and depression Current Visit: Yes Status: Chronic Assessment and plan: Hx of chronic anxiety and depression. Continue pts. Zoloft. (14) Hx of fall Current Visit: Yes Status: Chronic Assessment and plan: Hx of chronic falls. Falls/safety precautions, up with assist, bed rest w/ bedside commode w/assist only. XR of pts. left foot ordered d/t pain and hx of recent fall. PT/OT consults ordered to assess for rehabilitation needs. (15) GERD (gastroesophageal reflux disease) Current Visit: Yes Status: Chronic Assessment and plan: Hx of chronic GERD. IVP Zofran 4 mg Q6HR PPRN for N/V. IVP Protonix 40 mg. daily. Qualifiers: Esophagitis presence: esophagitis presence not specified Qualified Code(s) : K21.9 - Gastro-esophageal reflux disease without esophagitis (16) HTN (hypertension) Current Visit: Yes Status: Chronic Assessment and plan: Hx of chronic HTN. Monitor pt. and VS. Continue pts. Cozaar, hydralazine, amlodipine, and Lopressor. Qualifiers: Hypertension type: essential hypertension Qualified Code(s): I10 - Essential (primary) hypertension (17) HLD (hyperlipidemia) Current Visit: Yes Status: Chronic Assessment and plan: Hx Hx of chronic HLD. Lipid panel in a.m. labs. Continue pts. Pravastatin. Qualifiers: Hyperlipidemia type: pure hypercholesterolemia Qualified Code(s): E78.00 - Pure hypercholesterolemia, unspecified; E78.0 - Pure hypercholesterolemia - Time Spent With Patient Total time spent is greater than 50% in coordination of care (as documented) at patient's floor/unit and/or counseling patient: - Subjective Interval history: No acute events overnight - Constitutional Vitals: Temp Pulse Resp BP Pulse Ox 97.8 F 96 16 115/73 98 04/11/18 07:27 04/11/18 07:27 04/11/18 07:27 04/11/18 07:27 04/11/18 09:26 General appearance: Present: cooperative, A&O X 2, pleasant, no acute distress, answers questions appropriately - Head Head exam: Present: atraumatic, normocephalic - Eye Eye exam: Present: PERRL, conjuntiva pink, sclera anicteric Pupils: Present: PERRL - Neck Neck exam general surgery: Present: supple, trachea midline. Absent: lymphadenopathy - Respiratory Respiratory exam: Present: CTAB. Absent: accessory muscle use, rales, rhonchi, wheezes - Cardiovascular Cardiovascular exam: Present: RRR, +S1, +S2. Absent: diastolic murmur, gallop, rubs, systolic murmur - GI/Abdominal GI/Abdominal exam: Present: normal bowel sounds, soft, no peritoneal signs. Absent: distended, tenderness - Extremities Exam Extremities exam: Present: warm, radial pulses palpable and symmetrical. Absent : calf tenderness, cyanotic, pedal edema - Neurological Exam Neurological exam: Present: CN II-XII intact, oriented X3, no focal deficits. Absent: pronater drift, facial droop, speech deficit - Skin Skin exam: Present: dry, intact Internal Medicine: Result - Labs CBC & Chem 7: 04/11/18 04:31 04/11/18 04:31 Labs: Short CBC 04/11/18 Range/Units 04:31 WBC 15.2 H (4.3-11.1) K/mcL Hgb 9.2 L (11.5-15.4) g/dL Hct 28.7 L (35.3-44.9) % Plt Count 225 (140-400) K/mcL Neutrophils # 12.0 H (1.6-8.9) K/mcL BMP 04/11/18 04:31 Sodium 132 L Potassium 4.1 Chloride 107 Carbon Dioxide 19 L BUN 33 H Creatinine 0.78 Glucose 111 H Calcium 8.2 L - ABG Interpretation ABG results: PT/INR, D-dimer PT 12.5 Seconds (9.4-12.1) H 04/08/18 00:41 Consult Discharge Plan - Plan Referrals: Daria Bedoya [Primary Care Provider] -
[2018-04-11] MEDS: Melatonin 3 MG TABLET PO SCH (22:25)
[2018-04-11] MEDS: Acetaminophen 325 MG TABLET PO PRN (23:05)
[2018-04-12 05:04] LABS: Basophils % 0.3 %; Eosinophils # 0.3 K/mcL (0.0-0.6); Eosinophils % 2.2 %; Hematocrit 29.4 % (35.3-44.9); Hemoglobin 9.5 g/dL (11.5-15.4); Immature Granulocytes % 4.9 % (0-4); Lymphocytes # 2.1 K/mcL (0.6-4.6); Lymphocytes % 16.9 %; Mean Corpuscular HGB Conc 32.3 g/dL (31.6-35.5); Mean Corpuscular Hemoglobin 30.3 pg (28.0-33.3); Mean Corpuscular Volume 93.6 fL (83.0-100.0); Mean Platelet Volume 10.2 fL (9.4-12.4); Monocytes # 0.9 K/mcL (0.0-1.3); Monocytes % 6.7 %; Neutrophils # 8.7 K/mcL (1.6-8.9); Platelet Count 304 K/mcL (140-400); Red Blood Count 3.14 M/mcL (3.82-4.97); Red Cell Distribution Width 12.9 % (11.5-14.5)
[2018-04-12 05:23] LABS: BUN/Creatinine Ratio 39 (6-26); Blood Urea Nitrogen 28 mg/dL (8-23); Calcium 8.6 mg/dL (8.6-10.3); Carbon Dioxide 20 mEq/L (23-29); Chloride 104 mEq/L (98-107); Glucose 108 mg/dL (70-105); Osmolality,Calculated 278 (280-300); Potassium 4.2 mEq/L (3.5-5.1); Sodium 131 mEq/L (136-145); eGFR For African Americans > 60 (> 60); eGFR For Non-African Americans > 60 (> 60)
[2018-04-12] MEDS: *HR* Heparin 5,000 UNIT/ML VIAL SQ SCH ×2 (06:06→21:06)
[2018-04-12] MEDS: Aspirin 81 MG TAB.CHEW PO SCH (08:32)
[2018-04-12] MEDS: hydrALAZINE 25 MG TABLET PO SCH ×4 (08:33→21:09)
[2018-04-12] MEDS: Multivit/Ca/Min/Fe/FA 1 TAB TABLET PO SCH (08:33)
[2018-04-12] MEDS: Lactobacillus 1 EACH CAP.SPRINK PO SCH ×2 (08:33→20:58)
[2018-04-12] MEDS: Loratadine 10 MG TABLET PO SCH (08:33)
[2018-04-12] MEDS: Cholecalciferol (D-3) 1,000 UNIT TABLET PO SCH (08:33)
[2018-04-12] MEDS: amLODIPine 5 MG TABLET PO SCH (08:34)
[2018-04-12] MEDS: Vancomycin Oral Soln 125 MG/2.5 ML UDC PO SCH ×4 (08:46→21:00)
--- NOTE | 2018-04-12 10:39 | Internal Med Progress Note ---
Date of Encounter: 04/12/18 Time of Encounter: 10:30 - Assessment and plan (1) C. difficile diarrhea Current Visit: Yes Status: Acute Assessment and plan: Severe c diff infection with WBC >15. Stool studies came back positive for c diff. Continue on po vancomycin. WBC trending down. Still had loose stools this am (2) Altered mental status Current Visit: Yes Status: Acute Assessment and plan: Acute AMS over the past several days. Resolving. Transient alteration of awareness possibly caused by UTI / dehydration/ c difficile infection and hypernatremia. Continue Iv fluids. PO vanc for c diff. Completed antibiotic course for UTI. Will d/c ciprofloxacin Qualifiers: Altered mental status type: transient alteration of awareness Qualified Code(s): R40.4 - Transient alteration of awareness (3) Leukocytosis Current Visit: Yes Status: Acute Assessment and plan: Possibly secondary to UTI vs c diff. Continue Iv fluids . Start on po vancomycin. F/U repeat blood cultures. continue antibiotics Qualifiers: Leukocytosis type: unspecified Qualified Code(s): D72.829 - Elevated white blood cell count, unspecified (4) Left foot pain Current Visit: Yes Status: Acute Assessment and plan: Acute pain in left foot with foot drop. XR of left foot showed no fracture or dislocation. Seen by podiatry who recommend bracing and possible outpatient botox injections if bracing is unsuccessful (5) Hypernatremia Current Visit: Yes Status: Acute Assessment and plan: Acute hypernatremia. Pt. hospitalized approx 5-6 weeks ago and placed on PO salt pills d/t hyponatremia. Will hold sodium pills. Monitor sodium status in f/ u labs. Continue free water. Hypernatremia resolved this am (6) Dehydration Current Visit: Yes Status: Acute Assessment and plan: Acute dehydration. Resolved with hydration (7) CAD (coronary artery disease) Current Visit: Yes Status: Chronic Assessment and plan: Hx of CAD. Continuous cardiac telemetry. Continue pts. HTN and HLD medications. Aspirin daily. Echocardiogram in 11/19 shows LVEF of 60-65%.Pt had elevated troponins and was seen by cardiology. Troponemia likley 2/2 to demand ischemia per cardiology and there will be no further intervention Qualifiers: Coronary Disease-Associated Artery/Lesion type: [place] artery [place] vs. transplanted heart: [place] heart Associated angina: without angina Qualified Code(s): I25.10 - Atherosclerotic heart disease of [place] coronary artery without angina pectoris (8) DVT prophylaxis Current Visit: Yes Status: Acute Assessment and plan: Heparin 5,000 units SQ Q12HR. Monitor pt. for signs of bleeding. (9) Weakness Current Visit: Yes Status: Acute Assessment and plan: Acutely progressing weakness over the past 4 weeks. Nutrition consult for PO supplementation. Falls/safety precautions, up with assist, bed rest w/bedside commode w/assist only. PT/OT consults ordered to assess for rehabilitation needs. (10) Protein-calorie malnutrition, moderate Current Visit: Yes Status: Acute Assessment and plan: Acute protein calorie malnutrition. Pt. reports reduced intake and weakness. Nutrition consult ordered for PO supplementation. (11) Anemia Current Visit: Yes Status: Chronic Assessment and plan: Hx of chronic anemia. Hgb 10.8 and Hct 34.3 today which is higher than pts. recent numbers. Pt. denies unusual bleeding. Monitor H/H in f/u labs. Continue pts. PO iron. Qualifiers: Anemia type: unspecified type Qualified Code(s): D64.9 - Anemia, unspecified (12) CKD (chronic kidney disease), stage III Current Visit: Yes Status: Chronic Assessment and plan: Hx of CKD. Currently stage 3 w/GFR of 30 and creatinine of 1.65. Will use IV fluids judiciously and avoid nephrotoxins. Monitor I&O. (13) Anxiety and depression Current Visit: Yes Status: Chronic Assessment and plan: Hx of chronic anxiety and depression. Continue pts. Zoloft. (14) Hx of fall Current Visit: Yes Status: Chronic Assessment and plan: Hx of chronic falls. Falls/safety precautions, up with assist, bed rest w/ bedside commode w/assist only. XR of pts. left foot ordered d/t pain and hx of recent fall. PT/OT consults ordered to assess for rehabilitation needs. (15) GERD (gastroesophageal reflux disease) Current Visit: Yes Status: Chronic Assessment and plan: Hx of chronic GERD. IVP Zofran 4 mg Q6HR PPRN for N/V. IVP Protonix 40 mg. daily. Qualifiers: Esophagitis presence: esophagitis presence not specified Qualified Code(s) : K21.9 - Gastro-esophageal reflux disease without esophagitis (16) HTN (hypertension) Current Visit: Yes Status: Chronic Assessment and plan: Hx of chronic HTN. Monitor pt. and VS. Continue pts. Cozaar, hydralazine, amlodipine, and Lopressor. Qualifiers: Hypertension type: essential hypertension Qualified Code(s): I10 - Essential (primary) hypertension (17) HLD (hyperlipidemia) Current Visit: Yes Status: Chronic Assessment and plan: Hx Hx of chronic HLD. Lipid panel in a.m. labs. Continue pts. Pravastatin. Qualifiers: Hyperlipidemia type: pure hypercholesterolemia Qualified Code(s): E78.00 - Pure hypercholesterolemia, unspecified; E78.0 - Pure hypercholesterolemia - Time Spent With Patient Total time spent is greater than 50% in coordination of care (as documented) at patient's floor/unit and/or counseling patient: - Subjective Interval history: No acute events overnight - Constitutional Vitals: Temp Pulse Resp BP Pulse Ox 97.6 F 96 16 144/80 98 04/12/18 08:14 04/12/18 08:14 04/12/18 08:14 04/12/18 08:14 04/12/18 08:48 General appearance: Present: cooperative, A&O X 2, pleasant, no acute distress, answers questions appropriately - Head Head exam: Present: atraumatic, normocephalic - Eye Eye exam: Present: PERRL, conjuntiva pink, sclera anicteric Pupils: Present: PERRL - Neck Neck exam general surgery: Present: supple, trachea midline. Absent: lymphadenopathy - Respiratory Respiratory exam: Present: CTAB. Absent: accessory muscle use, rales, rhonchi, wheezes - Cardiovascular Cardiovascular exam: Present: RRR, +S1, +S2. Absent: diastolic murmur, gallop, rubs, systolic murmur - GI/Abdominal GI/Abdominal exam: Present: normal bowel sounds, soft, no peritoneal signs. Absent: distended, tenderness - Extremities Exam Extremities exam: Present: warm, radial pulses palpable and symmetrical. Absent : calf tenderness, cyanotic, pedal edema - Neurological Exam Neurological exam: Present: CN II-XII intact, oriented X3, no focal deficits. Absent: pronater drift, facial droop, speech deficit - Skin Skin exam: Present: dry, intact Internal Medicine: Result - Labs CBC & Chem 7: 04/12/18 04:22 04/12/18 04:22 Labs: Short CBC 04/12/18 Range/Units 04:22 WBC 12.6 H (4.3-11.1) K/mcL Hgb 9.5 L (11.5-15.4) g/dL Hct 29.4 L (35.3-44.9) % Plt Count 304 (140-400) K/mcL Neutrophils # 8.7 (1.6-8.9) K/mcL BMP 04/12/18 04:22 Sodium 131 L Potassium 4.2 Chloride 104 Carbon Dioxide 20 L BUN 28 H Creatinine 0.71 Glucose 108 H Calcium 8.6 - ABG Interpretation ABG results: PT/INR, D-dimer PT 12.5 Seconds (9.4-12.1) H 04/08/18 00:41 Consult Discharge Plan - Plan Referrals: Daria Bedoya [Primary Care Provider] - ([facility])
[2018-04-12] MEDS: Leptospermum Honey Gel 44 ML TUBE TP SCH ×2 (12:02→21:14)
[2018-04-12] MEDS: Melatonin 3 MG TABLET PO SCH (20:58)
[2018-04-13] MEDS: Acetaminophen 325 MG TABLET PO PRN ×3 (05:03→23:05)
[2018-04-13] MEDS: *HR* Heparin 5,000 UNIT/ML VIAL SQ SCH ×2 (06:31→17:36)
[2018-04-13 06:51] LABS: Basophils % 0.3 %; Eosinophils # 0.2 K/mcL (0.0-0.6); Eosinophils % 1.7 %; Hematocrit 27.6 % (35.3-44.9); Hemoglobin 9.1 g/dL (11.5-15.4); Immature Granulocytes % 4.9 % (0-4); Lymphocytes # 2.2 K/mcL (0.6-4.6); Lymphocytes % 19.1 %; Mean Corpuscular Hemoglobin 31.1 pg (28.0-33.3); Mean Corpuscular Volume 94.2 fL (83.0-100.0); Mean Platelet Volume 9.5 fL (9.4-12.4); Monocytes % 8.7 %; Neutrophils # 7.6 K/mcL (1.6-8.9); Platelet Count 325 K/mcL (140-400); Red Blood Count 2.93 M/mcL (3.82-4.97); Red Cell Distribution Width 13.1 % (11.5-14.5); Segmented Neutrophils % 65.3 %
[2018-04-13 07:05] LABS: BUN/Creatinine Ratio 38 (6-26); Blood Urea Nitrogen 27 mg/dL (8-23); Calcium 8.6 mg/dL (8.6-10.3); Carbon Dioxide 19 mEq/L (23-29); Chloride 103 mEq/L (98-107); Glucose 101 mg/dL (70-105); Osmolality,Calculated 279 (280-300); Potassium 4.4 mEq/L (3.5-5.1); Sodium 132 mEq/L (136-145); eGFR For African Americans > 60 (> 60); eGFR For Non-African Americans > 60 (> 60)
[2018-04-13] MEDS: Cholecalciferol (D-3) 1,000 UNIT TABLET PO SCH (08:23)
[2018-04-13] MEDS: Loratadine 10 MG TABLET PO SCH (08:23)
[2018-04-13] MEDS: Multivit/Ca/Min/Fe/FA 1 TAB TABLET PO SCH (08:23)
[2018-04-13] MEDS: amLODIPine 5 MG TABLET PO SCH (08:23)
[2018-04-13] MEDS: hydrALAZINE 25 MG TABLET PO SCH ×3 (08:23→22:29)
[2018-04-13] MEDS: Lactobacillus 1 EACH CAP.SPRINK PO SCH ×2 (08:24→22:28)
[2018-04-13] MEDS: Aspirin 81 MG TAB.CHEW PO SCH (08:24)
[2018-04-13] MEDS: Vancomycin Oral Soln 125 MG/2.5 ML UDC PO SCH ×4 (08:25→22:30)
[2018-04-13] MEDS: Leptospermum Honey Gel 44 ML TUBE TP SCH ×2 (08:36→22:30)
--- NOTE | 2018-04-13 16:56 | Internal Med Progress Note ---
Date of Encounter: 04/13/18 Time of Encounter: 13:00 - Assessment and plan (1) Hypernatremia Current Visit: Yes Status: Resolved Assessment and plan: Admitted with significant dehydration and hypernatremia, currently resolved with IV hydration. (2) C. difficile diarrhea Current Visit: Yes Status: Acute Assessment and plan: Developed leukocytosis and diarrhea during this admission. Stool C. difficile toxin positive. Continue by mouth vancomycin-D4. Probiotics. (3) DVT prophylaxis Current Visit: Yes Status: Acute (4) Protein-calorie malnutrition, moderate Current Visit: Yes Status: Chronic (5) Anemia Current Visit: Yes Status: Chronic Qualifiers: Anemia type: unspecified type Qualified Code(s): D64.9 - Anemia, unspecified (6) CAD (coronary artery disease) Current Visit: Yes Status: Chronic Qualifiers: Coronary Disease-Associated Artery/Lesion type: [place] artery [place] vs. transplanted heart: [place] heart Associated angina: without angina Qualified Code(s): I25.10 - Atherosclerotic heart disease of [place] coronary artery without angina pectoris (7) Anxiety and depression Current Visit: Yes Status: Chronic (8) Left foot pain Current Visit: Yes Status: Acute Assessment and plan: Reported left foot pain after recent fall, noted to have left foot drop. Podiatry consult appreciated-recommend foot brace and outpatient podiatric clinic follow-up. (9) Hx of fall Current Visit: Yes Status: Chronic Assessment and plan: Plan to discharge back to [facility] for continued rehabilitation. (10) GERD (gastroesophageal reflux disease) Current Visit: Yes Status: Chronic Qualifiers: Esophagitis presence: esophagitis presence not specified Qualified Code(s) : K21.9 - Gastro-esophageal reflux disease without esophagitis (11) HTN (hypertension) Current Visit: Yes Status: Chronic Qualifiers: Hypertension type: essential hypertension Qualified Code(s): I10 - Essential (primary) hypertension (12) HLD (hyperlipidemia) Current Visit: Yes Status: Chronic Qualifiers: Hyperlipidemia type: unspecified Qualified Code(s): E78.5 - Hyperlipidemia , unspecified - Time Spent With Patient Total time spent is greater than 50% in coordination of care (as documented) at patient's floor/unit and/or counseling patient: - Subjective Interval history: Reports feeling well. Denies fever, chills, nausea, vomiting, abdominal pain. Unsure if she still has diarrhea. Plan of care discussed with patient's grandson at bedside. - Constitutional Vitals: Temp Pulse Resp BP Pulse Ox 98.8 F 92 15 109/70 96 04/13/18 16:24 04/13/18 16:24 04/13/18 16:24 04/13/18 16:24 04/13/18 16:24 General appearance: Present: cooperative, A&O X 2, answers questions appropriately - Respiratory Respiratory exam: Present: CTAB. Absent: accessory muscle use, rales, rhonchi, wheezes - Cardiovascular Cardiovascular exam: Present: RRR, +S1, +S2, systolic murmur. Absent: diastolic murmur, gallop, rubs - GI/Abdominal GI/Abdominal exam: Present: normal bowel sounds, soft, no peritoneal signs. Absent: distended, tenderness - Extremities Exam Extremities exam: Present: pedal edema, warm, radial pulses palpable and symmetrical. Absent: calf tenderness, cyanotic Additional comments: Left foot drop, posterior brace noted Internal Medicine: Result - Labs CBC & Chem 7: 04/13/18 06:27 04/13/18 06:27 Labs: Short CBC 04/13/18 Range/Units 06:27 WBC 11.6 H (4.3-11.1) K/mcL Hgb 9.1 L (11.5-15.4) g/dL Hct 27.6 L (35.3-44.9) % Plt Count 325 (140-400) K/mcL Neutrophils # 7.6 (1.6-8.9) K/mcL BMP 04/13/18 06:27 Sodium 132 L Potassium 4.4 Chloride 103 Carbon Dioxide 19 L BUN 27 H Creatinine 0.72 Glucose 101 Calcium 8.6 - ABG Interpretation ABG results: PT/INR, D-dimer PT 12.5 Seconds (9.4-12.1) H 04/08/18 00:41 Consult Discharge Plan - Plan Referrals: Daria Bedoya [Primary Care Provider] - ([facility])
[2018-04-13] MEDS: Melatonin 3 MG TABLET PO SCH (22:28)
[2018-04-14] MEDS: *HR* Heparin 5,000 UNIT/ML VIAL SQ SCH (05:37)
[2018-04-14 07:56] LABS: Basophils # 0.1 K/mcL (0.0-0.2); Basophils % 0.3 %; Eosinophils # 0.2 K/mcL (0.0-0.6); Eosinophils % 1.2 %; Hematocrit 31.5 % (35.3-44.9); Hemoglobin 10.2 g/dL (11.5-15.4); Immature Granulocytes % 4.5 % (0-4); Lymphocytes # 2.4 K/mcL (0.6-4.6); Lymphocytes % 16.7 %; Mean Corpuscular HGB Conc 32.4 g/dL (31.6-35.5); Mean Corpuscular Hemoglobin 30.5 pg (28.0-33.3); Mean Corpuscular Volume 94.3 fL (83.0-100.0); Mean Platelet Volume 9.3 fL (9.4-12.4); Monocytes # 0.9 K/mcL (0.0-1.3); Monocytes % 6.2 %; Neutrophils # 10.3 K/mcL (1.6-8.9); Platelet Count 428 K/mcL (140-400); Red Blood Count 3.34 M/mcL (3.82-4.97); Red Cell Distribution Width 13.2 % (11.5-14.5); Segmented Neutrophils % 71.1 %
[2018-04-14 08:22] LABS: BUN/Creatinine Ratio 39 (6-26); Blood Urea Nitrogen 25 mg/dL (8-23); Calcium 9.5 mg/dL (8.6-10.3); Carbon Dioxide 20 mEq/L (23-29); Chloride 103 mEq/L (98-107); Glucose 103 mg/dL (70-105); Osmolality,Calculated 279 (280-300); Potassium 4.8 mEq/L (3.5-5.1); Sodium 132 mEq/L (136-145); eGFR For African Americans > 60 (> 60); eGFR For Non-African Americans > 60 (> 60)
[2018-04-14] MEDS: Aspirin 81 MG TAB.CHEW PO SCH (10:37)
[2018-04-14] MEDS: Cholecalciferol (D-3) 1,000 UNIT TABLET PO SCH (10:38)
[2018-04-14] MEDS: Loratadine 10 MG TABLET PO SCH (10:38)
[2018-04-14] MEDS: Lactobacillus 1 EACH CAP.SPRINK PO SCH (10:38)
[2018-04-14] MEDS: Multivit/Ca/Min/Fe/FA 1 TAB TABLET PO SCH (10:38)
[2018-04-14] MEDS: amLODIPine 5 MG TABLET PO SCH (10:38)
[2018-04-14] MEDS: hydrALAZINE 25 MG TABLET PO SCH ×2 (10:38→14:20)
[2018-04-14] MEDS: Leptospermum Honey Gel 44 ML TUBE TP SCH (10:39)
[2018-04-14] MEDS: Vancomycin Oral Soln 125 MG/2.5 ML UDC PO SCH ×2 (10:39→14:21)
--- NOTE | 2018-04-14 13:27 | Discharge Summary ---
- NOTES TO OUTPATIENT PROVIDER Notes to Outpatient Provider: Hypernatremia, dehydration, c.diff diarrhea Orders not resulted at time of discharge: Pending orders 04/09/18 12:07 Culture,Blood [BC] Routine Date of Encounter: 04/14/18 Time of Encounter: 13:25 - Discharge Diagnosis (1) Hypernatremia Priority: Primary Status: Resolved (2) C. difficile diarrhea Priority: Primary Status: Acute (3) Protein-calorie malnutrition, moderate Priority: Secondary Status: Chronic (4) Anemia Priority: Secondary Status: Chronic Qualifiers: Anemia type: unspecified type Qualified Code(s): D64.9 - Anemia, unspecified (5) CAD (coronary artery disease) Priority: Secondary Status: Chronic Qualifiers: Coronary Disease-Associated Artery/Lesion type: [place] artery [place] vs. transplanted heart: [place] Associated angina: without angina Qualified Code(s): I25.10 - Atherosclerotic heart disease of [place] coronary artery without angina pectoris (6) Anxiety and depression Priority: Secondary Status: Chronic (7) Left foot pain Priority: Primary Status: Acute (8) Hx of fall Priority: Primary Status: Chronic (9) GERD (gastroesophageal reflux disease) Priority: Secondary Status: Chronic Qualifiers: Esophagitis presence: esophagitis presence not specified Qualified Code(s) : K21.9 - Gastro-esophageal reflux disease without esophagitis (10) HTN (hypertension) Priority: Secondary Status: Chronic Qualifiers: Hypertension type: essential hypertension Qualified Code(s): I10 - Essential (primary) hypertension (11) HLD (hyperlipidemia) Priority: Secondary Status: Chronic Qualifiers: Hyperlipidemia type: unspecified Qualified Code(s): E78.5 - Hyperlipidemia , unspecified Hospital course: Ms. Rolle is a 82 year old female care home resident who was initially admitted with altered mental status and generalized weakness. She was noted to have severe dehydration and hyponatremia, which improved with appropriate IV hydration. Nephrology has been on board. Physical and occupational therapy evaluation recommended ECF placement, patient is being transferred back to her long-term care facility. She developed diarrhea, stool C. difficile toxin was positive, she started on oral vancomycin. She is not septic and leukocytosis improved, electrolytes are stable although she continues to have some watery diarrhea. Patient was placed on indwelling Andrade catheter during this admission, she failed voiding trial and is being discharged with a Andrade catheter and outpatient Urology f/up. Discharge discussed with: patient, family, nurse - Time Spent with Patient Total time spent providing and/or coordinating discharge services: Greater than 30 minutes (40 min) - Discharge Medications Prescriptions: Lidocaine Patch [Lidoderm 5% patch] 1 patch TD DAILY 3 Days #3 adh..patch Tramadol HCl [Ultram] 50 mg PO Q12H PRN 4 Days #5 tablet PRN Reason: Pain Vancomycin Oral Soln [Firvanq] 125 mg PO QID 6 Days [facility] [place] Home Medications: Loratadine [Claritin] 10 mg PO DAILY 10/12/16 [History] Pantoprazole Sodium [Protonix] 40 mg PO DAILY 10/12/16 [History] Aspirin 81 mg PO DAILY 12/01/16 [History] Calcium Carbonate/Vitamin D3 [Calcium 500-Vit D3 200 Caplet] 500 mg PO DAILY [History] Losartan Potassium [Cozaar] 50 mg PO BID #60 tab 12/03/16 [Rx] Pravastatin Sodium [Pravachol] 20 mg PO HS #30 tablet 12/03/16 [Rx] Metoprolol [Lopressor] 25 mg PO BID 11/04/17 [History] Melatonin 3 mg PO HS tablet 11/09/17 [Rx] Benzonatate 100 mg PO DAILY PRN 12/02/17 [History] Guaifenesin [Mucinex] 600 mg PO BID PRN 12/02/17 [History] Lactobacillus Acidophilus [Acidophilus] 1 tab PO BID 12/02/17 [History] Calcium Carbonate [Tums] 1,000 mg PO TID tab.chew 12/05/17 [Rx] Docusate [Colace] 100 mg PO BID PRN capsule 12/21/17 [Rx] Sodium Chloride [Sodium Chloride Tab] 1 gm PO BID 02/13/18 [History] hydrALAZINE [HydrALAZINE] 50 mg PO Q8HR 02/13/18 [History] Amlodipine Besylate 2.5 mg PO DAILY 04/07/18 [History] Ferrous Sulfate [Iron] 325 mg PO DAILY 04/07/18 [History] Multivit-Min/FA/Lycopen/Lutein [A Thru Z Select Multivit Tab] 1 tab PO DAILY 04/19 [History] Sertraline [Zoloft] 50 mg PO DAILY 04/07/18 [History] Acetaminophen [Tylenol] 650 mg PO Q6HR PRN tablet 04/14/18 [Rx] Lidocaine Patch [Lidoderm 5% patch] 1 patch TD DAILY 3 Days #3 adh..patch [Rx] Tramadol HCl [Ultram] 50 mg PO Q12H PRN 4 Days #5 tablet 04/14/18 [Rx] Vancomycin Oral Soln [Firvanq] 125 mg PO QID 6 Days [facility] 04/14/18 [Rx] Allergies/Adverse Reactions: 3 Allergy/AdvReac Type Severity Reaction Status Date / Time aspirin AdvReac See Verified 02/12/18 22:06 Comments Date of admission: 04/07/18 15:51 Primary care physician: Daria Bedoya Consults: 04/07/18 16:08 Consult to Nutrition [CONS] Routine Comment: Consulting Provider: NUTRITION Reason for Dietary Consult: PO Supplementation 04/08/18 13:04 Consult to Podiatry [CONS] Routine Consulting Provider: Pod[facility] Reason for Consult: foot drop Call Completed: Yes 04/10/18 10:15 Consult to Wound Care [CONS] Routine Reason for Consult: unstageable to bottom Call Completed: No Discharging clinician: Elena Ryan Anticipated date of discharge: 04/14/18 - Constitutional Vitals: Temp Pulse Resp BP Pulse Ox 99.2 F 99 15 111/72 95 04/14/18 10:27 04/14/18 10:27 04/14/18 10:27 04/14/18 10:27 04/14/18 10:49 General appearance: Present: cooperative, A&O X 2, answers questions appropriately - Cardiovascular Cardiovascular exam: Present: RRR, +S1, +S2. Absent: diastolic murmur, gallop, rubs, systolic murmur - Patient Status Disposition: Transfer SNF Condition: Fair Functional capacity at discharge: bed bound Overall status at discharge: patient is progressing back to baseline - Discharge Instructions Follow Up With: Memo Ash MD [Partnered Physician] - 04/23/18 7:30 am (Please follow up as schedule...) Daria Bedoya [Primary Care Provider] - ([facility]) Forms: ED Satisfaction Letter Additional Instructions: F/up with PCP in 1-2 weeks F/up with Urology for voiding trial in 1 week - Diet and Activity Activity: as per physical therapy, other (discharge with Andrade catheter) Diet: advance to your usual diet, low fat, low cholesterol, low salt diet
--- NOTE | 2018-04-14 13:34 | Physician Discharge Referral ---
ExtendedCare Referral Info Transfer To: [facility] Provider in Charge: Elena Ryan Provider in Charge after Transfer: PCP Institutional Level of Care: Skilled - Diagnosis (1) Hypernatremia Priority: Primary Status: Resolved (2) C. difficile diarrhea Priority: Primary Status: Acute (3) Protein-calorie malnutrition, moderate Priority: Secondary Status: Chronic (4) Anemia Priority: Secondary Status: Chronic (5) CAD (coronary artery disease) Priority: Secondary Status: Chronic (6) Anxiety and depression Priority: Secondary Status: Chronic (7) Left foot pain Priority: Primary Status: Acute (8) Hx of fall Priority: Primary Status: Chronic (9) GERD (gastroesophageal reflux disease) Priority: Secondary Status: Chronic (10) HTN (hypertension) Priority: Secondary Status: Chronic (11) HLD (hyperlipidemia) Priority: Secondary Status: Chronic Expected Duration of Placement: prison Prognosis: Fair Aware of Diagnosis: Patient Aware of Prognosis: Patient - Transfer Medications Prescriptions: Lidocaine Patch [Lidoderm 5% patch] 1 patch TD DAILY 3 Days #3 adh..patch Tramadol HCl [Ultram] 50 mg PO Q12H PRN 4 Days #5 tablet PRN Reason: Pain Vancomycin Oral Soln [Firvanq] 125 mg PO QID 6 Days [facility] [place] Medications: Loratadine [Claritin] 10 mg PO DAILY 10/12/16 [History] Pantoprazole Sodium [Protonix] 40 mg PO DAILY 10/12/16 [History] Aspirin 81 mg PO DAILY 12/01/16 [History] Calcium Carbonate/Vitamin D3 [Calcium 500-Vit D3 200 Caplet] 500 mg PO DAILY [History] Losartan Potassium [Cozaar] 50 mg PO BID #60 tab 12/03/16 [Rx] Pravastatin Sodium [Pravachol] 20 mg PO HS #30 tablet 12/03/16 [Rx] Metoprolol [Lopressor] 25 mg PO BID 11/04/17 [History] Melatonin 3 mg PO HS tablet 11/09/17 [Rx] Benzonatate 100 mg PO DAILY PRN 12/02/17 [History] Guaifenesin [Mucinex] 600 mg PO BID PRN 12/02/17 [History] Lactobacillus Acidophilus [Acidophilus] 1 tab PO BID 12/02/17 [History] Calcium Carbonate [Tums] 1,000 mg PO TID tab.chew 12/05/17 [Rx] Docusate [Colace] 100 mg PO BID PRN capsule 12/21/17 [Rx] Sodium Chloride [Sodium Chloride Tab] 1 gm PO BID 02/13/18 [History] hydrALAZINE [HydrALAZINE] 50 mg PO Q8HR 02/13/18 [History] Amlodipine Besylate 2.5 mg PO DAILY 04/07/18 [History] Ferrous Sulfate [Iron] 325 mg PO DAILY 04/07/18 [History] Multivit-Min/FA/Lycopen/Lutein [A Thru Z Select Multivit Tab] 1 tab PO DAILY 04/19 [History] Sertraline [Zoloft] 50 mg PO DAILY 04/07/18 [History] Acetaminophen [Tylenol] 650 mg PO Q6HR PRN tablet 04/14/18 [Rx] Lidocaine Patch [Lidoderm 5% patch] 1 patch TD DAILY 3 Days #3 adh..patch [Rx] Tramadol HCl [Ultram] 50 mg PO Q12H PRN 4 Days #5 tablet 04/14/18 [Rx] Vancomycin Oral Soln [Firvanq] 125 mg PO QID 6 Days [facility] 04/14/18 [Rx] Allergies/Adverse Reactions: 3 Allergy/AdvReac Type Severity Reaction Status Date / Time aspirin AdvReac See Verified 02/12/18 22:06 Comments - Respiratory Orders Smoking Cessation: Smoking cessation has been advised. For more information, call the [place] Tobacco Quit Line at 1-339-MXPO-NOW. - Advance Directives Power of Asset Analyst: Yes (Son) Code Status: Full Code - Mobility Orders Ambulate - Rehabiliation Orders Rehab Potential: Fair Rehab Orders: Sternal Precautions, ROM Exercises, Evaluation for Physical Therapy, Evaluation for Occupational Therapy - Diet Orders No Added Salt ([place]), Cardiac CERTIFICATION: I certify that the transfer of the above named patient to an Extended Care Facility is necessary for the continuing treatment of the diagnosis listed. The above information is true and accurate reflection of patient's current condition. Confidential - Redisclosure prohibited without a patient's written consent.
[2018-04-14 14:09] VITALS: BP 146/75
== END 2018-04-14 15:10 | DRG 372 ==
LOC: EMEROO 11:36 → 2ANU 11:36 → SUATTDRO 15:51 → OBSVTOIN 16:34 → 2ANU 17:10
PROVIDERS: ADMIT Internal Medicine; ATTEND Internal Medicine

== ENCOUNTER 2018-05-06 12:00 | Inpatient (IN) ==
--- NOTE | 2018-05-06 12:14 | Emergency Department Note ---
Disposition Clinical Impression: Hyponatremia, Elevated troponin Altered mental status Qualifiers: Altered mental status type: unspecified Qualified Code(s): R41.82 - Altered mental status, unspecified Disposition: Admitted As Inpatient Condition: Fair Referrals: Daria Bedoya [Primary Care Provider] - Forms: ED Satisfaction Letter Recheck wound or abnormal lab - General Chief Complaint: ED Recheck/Abnormal Lab/Rx Stated Complaint: low sodium Time Seen by Provider: 05/06/18 12:02 Source: patient Mode of arrival: EMS Limitations: altered mental status Nursing Notes Reviewed: Yes Vital Signs Reviewed: Yes - History of Present Illness HPI Narrative: 83-year-old female prior history of urinary retention, hypertension, dementia who presents to the ER via EMS from her [facility] with the chief complaint of abnormal labs. History is obtained by EMS as the patient has baseline dementia. They were called for abnormal labs today. Noted to have a sodium of 126. It was not conveyed as to why labs were checked today. They report that the nurse there said that she seemed more altered than her baseline. Upon arrival the patient is alert and oriented 2. She does remark that she has some right shoulder pain. She does not remember falling however there is a history of frequent falls on her list. Pt Subjective Complaint: abnormal lab(s) Initial Visit (ago): day(s) Associated symptoms: other (Weakness) - Related Data Home Medications Medication Instructions Recorded Confirmed Loratadine [Claritin] 10 mg PO DAILY 10/12/16 04/30/18 Pantoprazole Sodium [Protonix] 40 mg PO DAILY 10/12/16 04/30/18 Aspirin 81 mg PO DAILY 12/01/16 04/30/18 Calcium Carbonate/Vitamin D3 500 mg PO DAILY 12/01/16 04/30/18 [Calcium 500-Vit D3 200 Cap[place]] Metoprolol [Lopressor] 25 mg PO BID 11/04/17 04/30/18 Benzonatate 100 mg PO DAILY PRN 12/02/17 04/30/18 Guaifenesin [Mucinex] 600 mg PO BID PRN 12/02/17 04/30/18 Lactobacillus Acidophilus 1 tab PO BID 12/02/17 04/30/18 [Acidophilus] Sodium Chloride [Sodium Chloride 1 gm PO BID 02/13/18 04/30/18 Tab] hydrALAZINE [HydrALAZINE] 50 mg PO Q8HR 02/13/18 04/30/18 Amlodipine Besylate 2.5 mg PO DAILY 04/07/18 04/30/18 Ferrous Sulfate [Iron] 325 mg PO DAILY 04/07/18 04/30/18 Multivit-Min/FA/Lycopen/Lutein [A 1 tab PO DAILY 04/07/18 04/30/18 Thru Z Select Multivit Tab] Sertraline [Zoloft] 50 mg PO DAILY 04/07/18 04/30/18 Previous Rx's Medication Instructions Recorded Losartan Potassium [Cozaar] 50 mg PO BID #60 tab 12/03/16 Pravastatin Sodium [Pravachol] 20 mg PO HS #30 tablet 12/03/16 Melatonin 3 mg PO HS tablet 11/09/17 Calcium Carbonate [Tums] 1,000 mg PO TID tab.chew 12/05/17 Docusate [Colace] 100 mg PO BID PRN capsule 12/21/17 Acetaminophen [Tylenol] 650 mg PO Q6HR PRN tablet 04/14/18 Lidocaine Patch [Lidoderm 5% patch] 1 patch TD DAILY 3 Days #3 04/14/18 adh..patch Tramadol HCl [Ultram] 50 mg PO Q12H PRN 4 Days #5 tablet 04/14/18 Vancomycin Oral Soln [Firvanq] 125 mg PO QID 6 Days udc 04/14/18 Allergies Allergy/AdvReac Type Severity Reaction Status Date / Time aspirin AdvReac See Verified 05/06/18 12:17 Comments All systems ED: reviewed and negative except as stated. Cardiovascular: Denies: chest pain Respiratory: Denies: dyspnea Gastrointestinal: Denies: abdominal pain Neurological: Reports: weakness Past Medical History - Past Medical History Attestation: Yes The following information was validated with the patient. Source: old records reviewed Medical history: Reports: coronary artery disease, GERD, hypertension, renal disease, seizures Surgical history: Reports: appendectomy, hip replacement (left hip fracture/ repair), other (hemorrhoidectomy) Psychiatric history: Reports: anxiety, depression - Social History Smoking Status: Never smoker Smokeless Tobacco Status: No Alcohol use: Reports: none Drug use: Reports: none Physical Exam - General Limitations: altered mental status General appearance: alert, in no apparent distress - Head Head exam: atraumatic, normocephalic - Eye Eye exam: Present: normal appearance - ENT ENT exam: normal exam - Neck Neck exam: Present: normal inspection - Chest Chest inspection: Present: normal inspection, symmetric chest wall rise - Respiratory Respiratory exam: Present: normal lung sounds bilaterally - Cardiovascular Cardiovascular exam: Present: regular rate, normal rhythm, normal heart sounds - Abdominal Exam Abdominal exam: Present: soft, Non-Tender. Absent: tenderness - Extremities Exam Extremities exam: Present: normal inspection, full ROM - Expanded Upper Extremity Exam Shoulder exam: Present: normal inspection, full ROM Arm exam: Present: normal inspection, full ROM Elbow exam: Present: normal inspection, full ROM Forearm/Wrist exam: Present: normal inspection, full ROM Hand exam: Present: normal inspection, full ROM - Expanded Lower Extremity Exam Hip/Pelvis exam: Present: normal inspection, full ROM Upper leg exam: Present: normal inspection, full ROM Knee exam: Present: normal inspection, full ROM Lower leg exam: Present: normal inspection, full ROM Ankle exam: Present: normal inspection, full ROM Foot/toe exam: Present: other (Left foot drop) - Back Exam Back exam: Present: other (Stage II decubitus ulcer left ASIS) - Neurological Exam Neurological exam: Present: alert - Expanded Neurological Exam Patient oriented to: Present: person, place Speech: Present: fluid speech Motor strength - LUE: 4/5 Motor strength - RUE: 4/5 Motor strength - LLE: 4/5 Motor strength - RLE: 4/5 Sensory exam upper extremity: light touch: Normal Sensory exam lower extremity: light touch: Normal - Skin Skin exam: Present: warm Course Course Narrative: Patient seen and examined. Vital signs reviewed. Plan to obtain labs, imaging of her head and likely admission. - Reevaluation(s) Reevaluation #1: Appears dehydrated on exam. 500 mL normal saline ordered. Labs reviewed demonstrating continued hyponatremia. Imaging unremarkable. Plan to admit for further management. Vital Signs Temperature 98.1 F 05/06/18 12:04 Pulse Rate 75 05/06/18 12:04 Respiratory Rate 16 05/06/18 12:04 Blood Pressure 147/77 05/06/18 12:04 O2 Sat by Pulse Oximetry 96 05/06/18 12:04 Temperature 98.1 F 05/06/18 12:04 Pulse Rate 75 05/06/18 12:38 Respiratory Rate 14 05/06/18 12:38 Blood Pressure 144/77 07/05/18 12:38 O2 Sat by Pulse Oximetry 96 05/06/18 12:38 Oxygen Delivery Oxygen Delivery Room Air Recheck wound or abnormal lab - MDM Narrative Medical decision making narrative: 83-year-old female presents with abnormal labs worsening mental status. Sodium 127 here. Appears dehydrated on exam. Alert and oriented 2. CT head without acute findings. 500 mL bolus given. Discussed with the hospitalist who accepts for further management. Chest X-Ray 05/06/18 12:03 IMPRESSION: 1. Low lung volumes without acute cardiopulmonary process identified. 2. Large hiatal hernia. D/ / Randell Leblanc MD / Randell Leblanc MD Interpreting Provider: Randell Leblanc MD Head CT 05/06/18 12:04 IMPRESSION: Sequela of chronic small vessel ischemic change no acute intracranial abnormality seen. D/ / Roderick Chery MD / Roderick Chery MD Interpreting Provider: Roderick Chery MD 1508 hrs.: Spoke with the hospitalist she is in agreement with admission except patient for her care. - Lab Data Lab results reviewed: Yes I reviewed the patient's lab results. Result diagrams: 05/06/18 12:17 05/06/18 12:17 Lab Results 05/06/18 05/06/18 05/06/18 Range/Units 12:17 12:17 13:24 WBC 14.1 H (4.3-11.1) K/mcL RBC 3.26 L (3.82-4.97) M/mcL Hgb 9.8 L (11.5-15.4) g/dL Hct 30.1 L (35.3-44.9) % MCV 92.3 (83.0-100.0) fL MCH 30.1 (28.0-33.3) pg MCHC 32.6 (31.6-35.5) g/dL RDW 14.1 (11.5-14.5) % Plt Count 474 H (140-400) K/mcL MPV 8.9 L (9.4-12.4) fL Immature Gran % 1.0 (0-4) % Seg Neutrophils % 72.2 % Lymphocytes % 15.6 % Monocytes % 10.1 % Eosinophils % 0.8 % Basophils % 0.3 % Neutrophils # 10.2 H (1.6-8.9) K/mcL Lymphocytes # 2.2 (0.6-4.6) K/mcL Monocytes # 1.4 H (0.0-1.3) K/mcL Eosinophils # 0.1 (0.0-0.6) K/mcL Basophils # 0.0 (0.0-0.2) K/mcL Sodium 127 L (136-145) mEq/L Potassium 4.8 (3.5-5.1) mEq/L Chloride 93 L (98-107) mEq/L Carbon Dioxide 26 (23-29) mEq/L BUN 19 (8-23) mg/dL Creatinine 0.72 (0.60-1.20) mg/dL Est GFR ( Amer) > 60 (> 60) Est GFR (Non-Af Amer) > 60 (> 60) BUN/Creatinine Ratio 26 (6-26) Glucose 90 (70-105) mg/dL Calculated Osmolality 266 L (280-300) Calcium 10.0 (8.6-10.3) mg/dL Troponin I 0.04 H* (< 0.04) ng/mL Urine Color Yellow (Yellow) Urine Clarity Cloudy A (Clear) Urine pH 6.5 (5.0-8.0) pH Units Ur Specific [place] 1.018 (1.010-1.025) Urine Protein Trace (Neg-Trace) mg/dL Urine Glucose (UA) Normal (Normal) mg/dL Urine Ketones Negative (Negative) mg/dL Urine Blood Negative (Negative) Urine Nitrite Negative (Negative) Urine Bilirubin Negative (Negative) Urine Urobilinogen Normal (Normal) mg/dL Ur Leukocyte Esterase Moderate H (Negative) Urine Microscopic RBC 5-15 H (0-3) per hpf Urine Microscopic WBC 5-15 H (0-3) per hpf Ur Squamous Epith Cells Many H (None-Few) per lpf Urine Bacteria Few (None-Few) per hpf Hyaline Casts None Seen (None-Few) per lpf Ur Culture Indicated? NO. A (NO) - Radiology Data Radiology results reviewed: Yes I reviewed the patient's radiology results. Chest X-Ray 05/06/18 12:03 IMPRESSION: 1. Low lung volumes without acute cardiopulmonary process identified. 2. Large hiatal hernia. D/ / Randell Leblanc MD / Randell Leblanc MD Interpreting Provider: Randell Leblanc MD Head CT 05/06/18 12:04 IMPRESSION: Sequela of chronic small vessel ischemic change. No acute intracranial abnormality seen. D/ / 05/06/2018 13:08:12 Roderick Chery MD / jenifer Interpreting Provider: Roderick Chery MD - EKG Data EKG attestation: Yes I reviewed and interpreted this EKG. EKG results narrative: EKG demonstrates sinus rhythm rate 74 bpm. Left axis deviation. Normal intervals. Normal R-wave progression. There is isolated ST elevation at the J point in lead V2. No reciprocal changes. No gross ST elevations other than V2 , no ST depressions. S.B.A.R. - S.B.A.R. Situation: Demographics, MOA Background: Presenting Complaint, Relevant PMH, Meds, & Allergies Assessment: Course and respsone to treatment, Exam Concerns, Patient/Family Expectation, Pertinant Lab Results Recommendation: Barrier(s) to disposition, Recommendation based on pending studies, treatments, or consults S.B.A.R. Report Given to: Dr. Looney Attestation Statement - Attestation Attestation: This documentation is done with the assistance of Dragon dictation. Despite efforts made to ensure accuracy, there may be inaccuracies in rn pacu or spelling and typographical errors. I examined this patient and my medical decision-making was reviewed with the Resident Physician. I agree with the documented findings, disposition and treatment plan as described except to the extent set forth below. Patient was seen and evaluated on arrival with EMS and Dr. Holly, I agree with his evaluation and management plan, I supervised the care the patient's stay. Patient was sent from the nursing facility due to low sodium. On bleeding a great report from them and medics did not get a very good report from the nursing facility either. She has a low sodium is been feeling weak. The nurse's aide told the medics that she is "always that way". Patient claims a little bit of shoulder pain when you touch her. I see a history of falls on her [facility]p sheet but nothing that has been acute she has any bruising over the area. She does appear to be demented ; she states that she is in the hospital but she cannot tell me the time or the year.We will check her labs and CT her head x-ray her chest and see if there is any injuries and then reassess. She is in agreement with this plan. He is pleasant here.
[2018-05-06 13:05] LABS: Basophils % 0.3 %; Eosinophils # 0.1 K/mcL (0.0-0.6); Eosinophils % 0.8 %; Hematocrit 30.1 % (35.3-44.9); Hemoglobin 9.8 g/dL (11.5-15.4); Lymphocytes # 2.2 K/mcL (0.6-4.6); Lymphocytes % 15.6 %; Mean Corpuscular HGB Conc 32.6 g/dL (31.6-35.5); Mean Corpuscular Hemoglobin 30.1 pg (28.0-33.3); Mean Corpuscular Volume 92.3 fL (83.0-100.0); Mean Platelet Volume 8.9 fL (9.4-12.4); Monocytes # 1.4 K/mcL (0.0-1.3); Monocytes % 10.1 %; Neutrophils # 10.2 K/mcL (1.6-8.9); Platelet Count 474 K/mcL (140-400); Red Blood Count 3.26 M/mcL (3.82-4.97); Red Cell Distribution Width 14.1 % (11.5-14.5); Segmented Neutrophils % 72.2 %
[2018-05-06 13:29] LABS: BUN/Creatinine Ratio 26 (6-26); Blood Urea Nitrogen 19 mg/dL (8-23); Carbon Dioxide 26 mEq/L (23-29); Chloride 93 mEq/L (98-107); Glucose 90 mg/dL (70-105); Osmolality,Calculated 266 (280-300); Potassium 4.8 mEq/L (3.5-5.1); Sodium 127 mEq/L (136-145); eGFR For African Americans > 60 (> 60); eGFR For Non-African Americans > 60 (> 60)
[2018-05-06 13:34] LABS: Troponin I 0.04 ng/mL (< 0.04)
[2018-05-06] MEDS ORDERED: 0.9 % Sodium Chloride 500 ML IVC ONE (13:51)
[2018-05-06 13:52] LABS: Bilirubin,Urine Negative (Negative); Blood,Urine Negative (Negative); Clarity,Urine Cloudy (Clear); Color,Urine Yellow (Yellow); Glucose,Urine (UA) Normal (Normal); Ketones,Urine Negative (Negative); Leukocyte Esterase,Urine Moderate (Negative); Nitrite,Urine Negative (Negative); PH,Urine 6.5 pH Units (5.0-8.0); Protein,Urine Trace mg/dL (Neg-Trace); Specific Gravity,Urine 1.018 (1.010-1.025); Urobilinogen,Urine Normal (Normal)
[2018-05-06 13:55] LABS: Bacteria,Urine Few per hpf (None-Few); Hyaline Casts,Urine None Seen per lpf (None-Few); Squamous Epithelial Cell,Urine Many per lpf (None-Few)
--- NOTE | 2018-05-06 17:03 | Internal Med History&Physical ---
Date of Encounter: 05/07/18 Time of Encounter: 03:00 Internal Medicine - H&P: HPI Chief complaint: Abnormal lab History of present illness: Ms. Rolle is a 83 year old female with prior history of urinary retention, hypertension, dementia who presents to the ER via EMS from her care home with the chief complaint of abnormal labs with sodium of 126. It was also reported that she seemed more altered than her baseline. Past Med Surg Social Fam HX - Past Medical History Medical history: coronary artery disease, GERD, hypertension, renal disease, seizures Additional medical history: falls Psychiatric history: anxiety, depression - Past Surgical History Surgical History: appendectomy, hip replacement (left hip fracture/repair), other (hemorrhoidectomy) Additional surgical history: left hip replacement - Social History Smoking Status: Never smoker Smokeless Tobacco Status: No Alcohol use: none Drug use: none - Family History Mother Family Member Ethnicity: Non- Living Status: Hx Family Cancer: Yes (Breast cancer) Father Family Member Ethnicity: Non- Living Status: Hx Family Cardiac Disorders: Yes (CVA) Hx Family Neuromuscular Disorders: Yes (CVA) Brother Adopted: No Family Member Ethnicity: Non- Living Status: Still Living Hx Family Cardiac Disorders: Yes Hx Family Respiratory Disorders: No Hx Family Cancer: Yes Hx Family GI Disorders: No Hx Family Endocrine Disorder: No Hx Family Neuromuscular Disorders: No Hx Family Neurologic Disorders: No Hx Family HEENT Disorders: No Hx Family Autoimmune Disorders: No Sister Adopted: No Family Member Ethnicity: Non- Living Status: Still Living Hx Family Cardiac Disorders: Yes Hx Family Respiratory Disorders: No Hx Family Cancer: Yes Hx Family GI Disorders: No Hx Family Endocrine Disorder: No Hx Family Neuromuscular Disorders: No Hx Family Neurologic Disorders: No Hx Family HEENT Disorders: No Hx Family Autoimmune Disorders: No Internal Medicine - H&P: Meds Pantoprazole Sodium [Protonix] 40 mg PO DAILY 10/12/16 [History] Aspirin 81 mg PO DAILY 12/01/16 [History] Losartan Potassium [Cozaar] 50 mg PO BID #60 tab 12/03/16 [Rx] Pravastatin Sodium [Pravachol] 20 mg PO HS #30 tablet 12/03/16 [Rx] Metoprolol [Lopressor] 25 mg PO BID 11/04/17 [History] Benzonatate 100 mg PO DAILY PRN 12/02/17 [History] Guaifenesin [Mucinex] 600 mg PO BID PRN 12/02/17 [History] Lactobacillus Acidophilus [Acidophilus] 1 tab PO BID 12/02/17 [History] Docusate [Colace] 100 mg PO BID PRN capsule 12/21/17 [Rx] hydrALAZINE [HydrALAZINE] 50 mg PO Q8HR 02/13/18 [History] Amlodipine Besylate 2.5 mg PO DAILY 04/07/18 [History] Multivit-Min/FA/Lycopen/Lutein [A Thru Z Select Multivit Tab] 1 tab PO DAILY 04/19 [History] Acetaminophen [Tylenol] 650 mg PO Q6HR PRN tablet 04/14/18 [Rx] Lidocaine Patch [Lidoderm 5% patch] 1 patch TD DAILY 3 Days #3 adh..patch [Rx] Tramadol HCl [Ultram] 50 mg PO Q12H PRN 4 Days #5 tablet 04/14/18 [Rx] Ascorbic Acid [Vitamin C with Afshan Hips] 500 mg PO DAILY 05/06/18 [History] Bisacodyl [Dulcolax] 10 mg RC DAILY PRN 05/06/18 [History] LORazepam [Ativan] 0.5 mg PO TID 05/06/18 [History] Mirtazapine 7.5 mg PO DAILY 05/06/18 [History] Sertraline [Zoloft] 100 mg PO DAILY 05/06/18 [History] 3 Allergy/AdvReac Type Severity Reaction Status Date / Time aspirin AdvReac See Verified 05/06/18 12:17 Comments ROS unobtainable: due to mental status All Systems PM: A 10-system review of systems was performed and is negative for pertinent findings except as documented above in the HPI. - Constitutional Vitals: Temp Pulse Resp BP Pulse Ox 98.1 F 78 18 156/85 93 05/06/18 12:04 05/06/18 15:55 05/06/18 16:39 05/06/18 16:39 05/06/18 15:55 - Head Head exam: Present: atraumatic, normocephalic - Neck Neck exam general surgery: Present: supple, trachea midline. Absent: lymphadenopathy - Respiratory Respiratory exam: Present: CTAB. Absent: accessory muscle use, rales, rhonchi, wheezes - Cardiovascular Cardiovascular exam: Present: RRR, +S1, +S2. Absent: diastolic murmur, gallop, rubs, systolic murmur - GI/Abdominal GI/Abdominal exam: Present: normal bowel sounds, soft, no peritoneal signs. Absent: distended, tenderness - Extremities Exam Extremities exam: Present: warm, radial pulses palpable and symmetrical. Absent : calf tenderness, cyanotic, pedal edema Internal Med - H&P Results - Labs CBC & Chem 7: 05/06/18 12:17 05/06/18 12:17 - Assessment and plan (1) Hyponatremia Current Visit: Yes Status: Chronic Assessment and plan: Most likely hypovolumic hyponatremia, start IV hydration. (2) Altered mental status Current Visit: Yes Status: Resolved Qualifiers: Altered mental status type: unspecified Qualified Code(s): R41.82 - Altered mental status, unspecified (3) CAD (coronary artery disease) Current Visit: No Status: Chronic Qualifiers: Coronary Disease-Associated Artery/Lesion type: [place] artery [place] vs. transplanted heart: [place] heart Associated angina: without angina Qualified Code(s): I25.10 - Atherosclerotic heart disease of [place] coronary artery without angina pectoris (4) CKD (chronic kidney disease), stage III Current Visit: No Status: Chronic (5) Anemia Current Visit: No Status: Chronic Qualifiers: Anemia type: unspecified type Qualified Code(s): D64.9 - Anemia, unspecified (6) GERD (gastroesophageal reflux disease) Current Visit: No Status: Chronic Qualifiers: Esophagitis presence: esophagitis presence not specified Qualified Code(s) : K21.9 - Gastro-esophageal reflux disease without esophagitis (7) Anxiety and depression Current Visit: No Status: Chronic (8) DVT prophylaxis Current Visit: No Status: Acute - Time Spent With Patient Total time spent is greater than 50% in coordination of care (as documented) at patient's floor/unit and/or counseling patient:
[2018-05-06] MEDS ORDERED: Acetaminophen 325 MG TABLET PO PRN (19:07)
[2018-05-06] MEDS ORDERED: Benzonatate 100 MG CAPSULE PO PRN (19:07)
[2018-05-06] MEDS ORDERED: traMADol 50 MG TABLET PO PRN (19:07)
[2018-05-06] MEDS ORDERED: Bisacodyl 10 MG RECTAL SUPPOSITORY RC PRN (19:07)
[2018-05-06] MEDS ORDERED: *HR* HYDROcodone/Acet 5/325 mg TABLET PO PRN (19:10)
[2018-05-06] MEDS ORDERED: Naloxone 0.4 MG/ML INJ IVP PRN (19:10)
[2018-05-06] MEDS: 0.9 % Sodium Chloride 1,000 ML IVC SCH (19:44)
[2018-05-06 19:50] LABS: INR 1.1
[2018-05-06] MEDS: Lactobacillus 1 EACH CAP.SPRINK PO SCH (20:27)
[2018-05-06] MEDS: *HR* LORazepam 0.5 MG TABLET PO SCH (20:27)
--- NOTE | 2018-05-06 23:37 | Electrocardiograph Report ---
[facility] [employer] [facility] Date: 2018-05-06 Pat Name: Chloe Rolle Department: [id number] Room: 2A12 Gender: F Chiseler Head: : 1935 Requested By: Al Ventura Order Number: [id number] Reading MD: Megan Castro Measurements Intervals [place] Rate: 74 P: 10 [place]: 177 QRS: -27 QRSD: 86 T: 18 QT: 343 QTc: 371 Interpretive Statements SINUS RHYTHM SEPTAL MYOCARDIAL INFARCTION, POSSIBLY ACUTE INFERIOR MYOCARDIAL INFARCTION, OF INDETERMINATE AGE WARNING: DATA QUALITY MAY AFFECT INTERPRETATION Electronically Signed On 05-06-2018 23:35:26 EDT by Megan Castro
[2018-05-06 23:56] LABS: Bacteria,Urine Few per hpf (None-Few); Clarity,Urine Clear (Clear); Color,Urine Yellow (Yellow); Hyaline Casts,Urine None Seen per lpf (None-Few); Squamous Epithelial Cell,Urine Few per lpf (None-Few)
[2018-05-07 00:01] LABS: Bilirubin,Urine Negative (Negative); Blood,Urine Negative (Negative); Glucose,Urine (UA) Normal (Normal); Ketones,Urine Negative (Negative); Leukocyte Esterase,Urine Small (Negative); Nitrite,Urine Negative (Negative); Protein,Urine Negative (Neg-Trace); Specific Gravity,Urine <= 1.005 (1.010-1.025); Urobilinogen,Urine Normal (Normal)
[2018-05-07] MEDS: hydrALAZINE 25 MG TABLET PO SCH ×5 (00:21→20:17)
[2018-05-07] MEDS: 0.9 % Sodium Chloride 1,000 ML IVC SCH (05:17)
[2018-05-07 05:40] LABS: Basophils % 0.2 %; Eosinophils # 0.2 K/mcL (0.0-0.6); Eosinophils % 1.3 %; Hemoglobin 8.5 g/dL (11.5-15.4); Immature Granulocytes % 0.8 % (0-4); Lymphocytes # 1.6 K/mcL (0.6-4.6); Lymphocytes % 11.6 %; Mean Corpuscular HGB Conc 32.7 g/dL (31.6-35.5); Mean Corpuscular Hemoglobin 29.5 pg (28.0-33.3); Mean Corpuscular Volume 90.3 fL (83.0-100.0); Monocytes # 1.2 K/mcL (0.0-1.3); Monocytes % 8.3 %; Platelet Count 428 K/mcL (140-400); Red Blood Count 2.88 M/mcL (3.82-4.97); Segmented Neutrophils % 77.8 %
[2018-05-07 05:56] LABS: Alanine Aminotransferase 12 Units/L (7-52); Albumin 2.7 g/dL (3.5-5.7); Albumin/Globulin Ratio 1.1 (1.1-2.2); Alkaline Phosphatase 70 Units/L (34-104); Aspartate Amino Transferase 16 Units/L (13-39); BUN/Creatinine Ratio 24 (6-26); Bilirubin,Total 0.3 mg/dL (0.3-1.0); Blood Urea Nitrogen 14 mg/dL (8-23); Calcium 9.2 mg/dL (8.6-10.3); Carbon Dioxide 23 mEq/L (23-29); Chloride 98 mEq/L (98-107); Cholesterol 94 mg/dL (< 200); Globulin 2.5 g/dL (2.4-3.5); Glucose 83 mg/dL (70-105); HDL Cholesterol 46 mg/dL (40-59); LDL Cholesterol,Calculated 30 mg/dL (0-99); Magnesium 1.5 mg/dL (1.6-2.6); Osmolality,Calculated 266 (280-300); Phosphorous 3.7 mg/dL (2.7-4.5); Sodium 128 mEq/L (136-145); Total Protein 5.2 g/dL (6.4-8.9); Triglycerides 90 mg/dL (< 150); eGFR For African Americans > 60 (> 60); eGFR For Non-African Americans > 60 (> 60)
[2018-05-07] MEDS ORDERED: Mirtazapine 15 MG TABLET PO SCH (09:00)
[2018-05-07] MEDS: *HR* LORazepam 0.5 MG TABLET PO SCH (09:17)
[2018-05-07] MEDS: Multivit/Ca/Min/Fe/FA 1 TAB TABLET PO SCH (09:19)
[2018-05-07] MEDS: Lactobacillus 1 EACH CAP.SPRINK PO SCH ×2 (09:19→20:17)
[2018-05-07] MEDS: Ascorbic Acid 500 MG TABLET PO SCH (09:20)
[2018-05-07] MEDS: Aspirin 81 MG TAB.CHEW PO SCH (09:20)
[2018-05-07] MEDS: amLODIPine 5 MG TABLET PO SCH (09:20)
[2018-05-07 13:17] LABS: Alanine Aminotransferase 12 Units/L (7-52); Albumin 2.6 g/dL (3.5-5.7); Albumin/Globulin Ratio 1.1 (1.1-2.2); Alkaline Phosphatase 67 Units/L (34-104); Aspartate Amino Transferase 16 Units/L (13-39); BUN/Creatinine Ratio 21 (6-26); Bilirubin,Total 0.3 mg/dL (0.3-1.0); Blood Urea Nitrogen 13 mg/dL (8-23); Calcium 9.1 mg/dL (8.6-10.3); Carbon Dioxide 22 mEq/L (23-29); Chloride 98 mEq/L (98-107); Globulin 2.4 g/dL (2.4-3.5); Glucose 86 mg/dL (70-105); Osmolality,Calculated 265 (280-300); Potassium 4.2 mEq/L (3.5-5.1); Sodium 128 mEq/L (136-145); eGFR For African Americans > 60 (> 60); eGFR For Non-African Americans > 60 (> 60)
[2018-05-07] MEDS ORDERED: 0.9 % Sodium Chloride 1,000 ML IVC ONE (15:48)
--- NOTE | 2018-05-07 18:44 | Internal Med Progress Note ---
Date of Encounter: 05/07/18 Time of Encounter: 13:00 - Assessment and plan (1) Hyponatremia Current Visit: Yes Status: Chronic Assessment and plan: History of recurrent hyponatremia and sometimes hypernatremia for awhile per son at bedside Mental status waxes and wanes Likely 2/2 dehydration with hypovolemic hyponatremia. IVF. Monitor BMPS, avoid overcorrection. Mental status had improved after IVF this afternoon. (2) Altered mental status Current Visit: Yes Status: Resolved Assessment and plan: 2/2 dehydration, may be related to hyponatremia, although can be a chronic condition Mental status improving. Continue hydration. Qualifiers: Altered mental status type: unspecified Qualified Code(s): R41.82 - Altered mental status, unspecified (3) Anemia Current Visit: No Status: Chronic Assessment and plan: Anemia with no evidence of bloodloss Will monitor CBC, can get occult blood test if continues to decline Qualifiers: Anemia type: unspecified type Qualified Code(s): D64.9 - Anemia, unspecified (4) CAD (coronary artery disease) Current Visit: No Status: Chronic Assessment and plan: Continue home medications Qualifiers: Coronary Disease-Associated Artery/Lesion type: [place] artery [place] vs. transplanted heart: [place] heart Associated angina: without angina Qualified Code(s): I25.10 - Atherosclerotic heart disease of [place] coronary artery without angina pectoris (5) CKD (chronic kidney disease), stage III Current Visit: No Status: Chronic Assessment and plan: Creatine WNL . Monitor BMPS. IVF hydration. - Time Spent With Patient Total time spent is greater than 50% in coordination of care (as documented) at patient's floor/unit and/or counseling patient: - Subjective Interval history: Patient lethargic in AM, mumbles but cannot understand. - Constitutional Vitals: Temp Pulse Resp BP Pulse Ox 97.5 F L 77 18 118/60 93 05/07/18 15:10 05/07/18 15:10 05/07/18 15:10 05/07/18 17:11 05/07/18 15:10 Exam: General: Lethargic. Responsive and attempts to speak but difficult to underestand. Frail. Skin: Normal color, no rash, no lesions. HEENT: EOMI, pupils equal, round and reactive. Cardiovascular: Regular rate, regular rhythm. No murmurs appreciated. Lungs:Normal breath sounds, no wheezes or crackles. Abdomen:Soft, non-tender, no rigidity. Extremities:No deformity, no edema or tenderness, no joint swelling or clubbing. Neurological:Normal cognition, no weakness, no numbness. Rest of the physical exam is non contributory Internal Medicine: Result - Labs CBC & Chem 7: 05/07/18 04:59 05/07/18 12:26 Labs: Short CBC 05/07/18 Range/Units 04:59 WBC 14.1 H (4.3-11.1) K/mcL Hgb 8.5 L (11.5-15.4) g/dL Hct 26.0 L (35.3-44.9) % Plt Count 428 H (140-400) K/mcL Neutrophils # 11.0 H (1.6-8.9) K/mcL BMP 05/07/18 05/07/18 04:59 12:26 Sodium 128 L 128 L Potassium 4.0 4.2 Chloride 98 98 Carbon Dioxide 23 22 L BUN 14 13 Creatinine 0.59 L 0.62 Glucose 83 86 Calcium 9.2 9.1 Liver Function 05/07/18 05/07/18 Range/Units 04:59 12:26 Total Bilirubin 0.3 0.3 (0.3-1.0) mg/dL AST 16 16 (13-39) Units/L ALT 12 12 (7-52) Units/L Alkaline Phosphatase 70 67 (34-104) Units/L Albumin 2.7 L 2.6 L (3.5-5.7) g/dL Urine 05/06/18 Range/Units 23:45 Urine Color Yellow (Yellow) Urine Clarity Clear (Clear) Urine pH 6.0 (5.0-8.0) pH Units Ur Specific [place] <= 1.005 L (1.010-1.025) Urine Protein Negative (Neg-Trace) mg/dL Urine Glucose (UA) Normal (Normal) mg/dL - ABG Interpretation ABG results: PT/INR, D-dimer PT 12.0 Seconds (9.4-12.1) 05/06/18 19:31 Consult Discharge Plan - Plan Referrals: NONE,PCP [Non-Partnered Physician] - (Patient is a bedhold in [place])
[2018-05-07] MEDS ORDERED: 0.9 % Sodium Chloride 1,000 ML IVC SCH (19:00)
[2018-05-07] MEDS: Mirtazapine 15 MG TABLET PO SCH (20:16)
[2018-05-08 04:55] LABS: Basophils % 0.2 %; Eosinophils # 0.2 K/mcL (0.0-0.6); Eosinophils % 1.8 %; Hematocrit 26.4 % (35.3-44.9); Hemoglobin 8.6 g/dL (11.5-15.4); Immature Granulocytes % 0.7 % (0-4); Lymphocytes # 1.8 K/mcL (0.6-4.6); Lymphocytes % 14.8 %; Mean Corpuscular HGB Conc 32.6 g/dL (31.6-35.5); Mean Platelet Volume 9.2 fL (9.4-12.4); Monocytes # 1.1 K/mcL (0.0-1.3); Monocytes % 8.5 %; Neutrophils # 9.1 K/mcL (1.6-8.9); Platelet Count 386 K/mcL (140-400); Red Blood Count 2.87 M/mcL (3.82-4.97)
[2018-05-08 05:12] LABS: BUN/Creatinine Ratio 25 (6-26); Blood Urea Nitrogen 17 mg/dL (8-23); Carbon Dioxide 23 mEq/L (23-29); Chloride 103 mEq/L (98-107); Glucose 85 mg/dL (70-105); Osmolality,Calculated 277 (280-300); Sodium 133 mEq/L (136-145); eGFR For African Americans > 60 (> 60); eGFR For Non-African Americans > 60 (> 60)
[2018-05-08] MEDS: *HR* Enoxaparin 40 MG/0.4 ML SYRINGE SQ SCH (05:53)
[2018-05-08] MEDS: Multivit/Ca/Min/Fe/FA 1 TAB TABLET PO SCH (09:08)
[2018-05-08] MEDS: 0.9 % Sodium Chloride 1,000 ML IVC SCH ×2 (09:08→18:49)
[2018-05-08] MEDS: Ascorbic Acid 500 MG TABLET PO SCH (09:08)
[2018-05-08] MEDS: amLODIPine 5 MG TABLET PO SCH (09:08)
[2018-05-08] MEDS: Aspirin 81 MG TAB.CHEW PO SCH (09:08)
[2018-05-08] MEDS: Lactobacillus 1 EACH CAP.SPRINK PO SCH ×2 (09:08→20:52)
[2018-05-08] MEDS: hydrALAZINE 25 MG TABLET PO SCH ×3 (09:16→20:51)
[2018-05-08 13:11] LABS: BUN/Creatinine Ratio 21 (6-26); Blood Urea Nitrogen 15 mg/dL (8-23); Calcium 9.1 mg/dL (8.6-10.3); Carbon Dioxide 23 mEq/L (23-29); Chloride 106 mEq/L (98-107); Glucose 143 mg/dL (70-105); Osmolality,Calculated 281 (280-300); Potassium 4.2 mEq/L (3.5-5.1); Sodium 134 mEq/L (136-145); eGFR For African Americans > 60 (> 60); eGFR For Non-African Americans > 60 (> 60)
--- NOTE | 2018-05-08 14:01 | Internal Med Progress Note ---
Date of Encounter: 05/08/18 Time of Encounter: 09:30 - Assessment and plan (1) Hyponatremia Current Visit: Yes Status: Chronic Assessment and plan: History of recurrent hyponatremia and sometimes hypernatremia for awhile per son at bedside Mental status waxes and wanes Likely 2/2 dehydration with hypovolemic hyponatremia. IVF. Latest sodium 134, almost back to normal limits. Mental status reportedly better from time to time and does communicate. Family states that patient is better but not completely back to baseline. CT scan on admission with no acute pathology. Current status may be as good as patient may get. Likely discharge in AM. Monitor BMPs. (2) Altered mental status Current Visit: Yes Status: Resolved Assessment and plan: 2/2 dehydration, may be related to hyponatremia, although can be a chronic condition Mental status improving but waxes and wanes. Continue hydration. CT head with no acute pathology. Qualifiers: Altered mental status type: unspecified Qualified Code(s): R41.82 - Altered mental status, unspecified (3) Anemia Current Visit: No Status: Chronic Assessment and plan: Anemia with no evidence of bloodloss Will monitor CBC, can get occult blood test if continues to decline Hb have stabelize at 8 since yesterday Qualifiers: Anemia type: unspecified type Qualified Code(s): D64.9 - Anemia, unspecified (4) CAD (coronary artery disease) Current Visit: No Status: Chronic Assessment and plan: Continue home medications Qualifiers: Coronary Disease-Associated Artery/Lesion type: [place] artery [place] vs. transplanted heart: [place] heart Associated angina: without angina Qualified Code(s): I25.10 - Atherosclerotic heart disease of [place] coronary artery without angina pectoris (5) CKD (chronic kidney disease), stage III Current Visit: No Status: Chronic Assessment and plan: Creatine WNL . Monitor BMPS. IVF hydration. - Time Spent With Patient Total time spent is greater than 50% in coordination of care (as documented) at patient's floor/unit and/or counseling patient: - Subjective Interval history: Patient responsive and speaks few words. Does not say if anything is bothering her. - Constitutional Vitals: Temp Pulse Resp BP Pulse Ox 98.5 F 66 16 139/84 97 05/08/18 11:13 05/08/18 11:13 05/08/18 11:13 05/08/18 11:13 05/08/18 11:13 Exam: General: Lethargic. Mental status waxes and wanes, answers some questions but difficult to understand. Skin: Normal color, no rash, no lesions. HEENT: EOMI, pupils equal, round and reactive. Cardiovascular: Regular rate, regular rhythm. No murmurs appreciated. Lungs:Normal breath sounds, no wheezes or crackles. Abdomen:Soft, non-tender, no rigidity. Extremities:No deformity, no edema or tenderness, no joint swelling or clubbing. Neurological:Normal cognition, no weakness, no numbness. Rest of the physical exam is non contributory Internal Medicine: Result - Labs CBC & Chem 7: 05/08/18 03:35 05/08/18 12:40 Labs: Short CBC 05/08/18 Range/Units 03:35 WBC 12.3 H (4.3-11.1) K/mcL Hgb 8.6 L (11.5-15.4) g/dL Hct 26.4 L (35.3-44.9) % Plt Count 386 (140-400) K/mcL Neutrophils # 9.1 H (1.6-8.9) K/mcL BMP 05/08/18 05/08/18 03:35 12:40 Sodium 133 L 134 L Potassium 4.0 4.2 Chloride 103 106 Carbon Dioxide 23 23 BUN 17 15 Creatinine 0.67 0.70 Glucose 85 143 H Calcium 9.0 9.1 - ABG Interpretation ABG results: PT/INR, D-dimer PT 12.0 Seconds (9.4-12.1) 05/06/18 19:31 Consult Discharge Plan - Plan Referrals: NONE,PCP [Non-Partnered Physician] - (Patient is a bedhold in [facility])
[2018-05-08] MEDS: Nitrofurantoin (BID) 100 MG CAPSULE PO SCH ×2 (16:13→20:51)
[2018-05-08] MEDS: Mirtazapine 15 MG TABLET PO SCH (20:52)
[2018-05-09] MEDS: 0.9 % Sodium Chloride 1,000 ML IVC SCH (05:14)
[2018-05-09] MEDS: *HR* Enoxaparin 40 MG/0.4 ML SYRINGE SQ SCH (05:15)
[2018-05-09 07:02] LABS: Basophils % 0.2 %; Eosinophils # 0.3 K/mcL (0.0-0.6); Eosinophils % 2.2 %; Hematocrit 27.8 % (35.3-44.9); Hemoglobin 8.9 g/dL (11.5-15.4); Lymphocytes # 2.8 K/mcL (0.6-4.6); Lymphocytes % 22.2 %; Mean Corpuscular Hemoglobin 29.6 pg (28.0-33.3); Mean Corpuscular Volume 92.4 fL (83.0-100.0); Mean Platelet Volume 8.9 fL (9.4-12.4); Monocytes # 1.4 K/mcL (0.0-1.3); Monocytes % 11.1 %; Platelet Count 400 K/mcL (140-400); Red Blood Count 3.01 M/mcL (3.82-4.97); Red Cell Distribution Width 14.2 % (11.5-14.5); Segmented Neutrophils % 63.3 %
[2018-05-09 07:21] LABS: Alanine Aminotransferase 14 Units/L (7-52); Albumin 2.7 g/dL (3.5-5.7); Alkaline Phosphatase 68 Units/L (34-104); Aspartate Amino Transferase 17 Units/L (13-39); BUN/Creatinine Ratio 29 (6-26); Bilirubin,Total 0.2 mg/dL (0.3-1.0); Blood Urea Nitrogen 18 mg/dL (8-23); Calcium 8.9 mg/dL (8.6-10.3); Carbon Dioxide 25 mEq/L (23-29); Chloride 106 mEq/L (98-107); Globulin 2.6 g/dL (2.4-3.5); Glucose 103 mg/dL (70-105); Osmolality,Calculated 280 (280-300); Potassium 4.1 mEq/L (3.5-5.1); Sodium 134 mEq/L (136-145); Total Protein 5.3 g/dL (6.4-8.9); eGFR For African Americans > 60 (> 60); eGFR For Non-African Americans > 60 (> 60)
--- NOTE | 2018-05-09 08:09 | Internal Med Progress Note ---
Date of Encounter: 05/09/18 Time of Encounter: 08:06 - Assessment and plan (1) Altered mental status Current Visit: Yes Status: Resolved Assessment and plan: Likely multi-factorial due to UTI and hyponatremia. Continues to improve. Will continue to monitor. Qualifiers: Altered mental status type: unspecified Qualified Code(s): R41.82 - Altered mental status, unspecified (2) Hyponatremia Current Visit: Yes Status: Acute Assessment and plan: Resolved with IVF hydration. Nurse noted today that patient does have some LE edema that has increased form previous days. Fluids stopped. Will give one time Lasix 20 mg PO and reassess in am. Will reassess in am. (3) Acute cystitis Current Visit: Yes Status: Acute Assessment and plan: Pt is on Macrobid. Awaiting final urine culture and sensitivity results and will adjust antibiotic as appropriate. Will re check CBC in am. Qualifiers: Qualified Code(s): N30.00 - Acute cystitis without hematuria (4) CAD (coronary artery disease) Current Visit: No Status: Chronic Assessment and plan: ASA and Zocor. Qualifiers: Coronary Disease-Associated Artery/Lesion type: [place] artery [place] vs. transplanted heart: [place] heart Associated angina: without angina Qualified Code(s): I25.10 - Atherosclerotic heart disease of [place] coronary artery without angina pectoris (5) CKD (chronic kidney disease), stage III Current Visit: No Status: Chronic Assessment and plan: monitoring renal function QD. Cr 0.63 (6) Anemia Current Visit: No Status: Chronic Assessment and plan: Hgb 8.9 stable. Will monitor as needed. Qualifiers: Anemia type: unspecified type Qualified Code(s): D64.9 - Anemia, unspecified - Time Spent With Patient Total time spent is greater than 50% in coordination of care (as documented) at patient's floor/unit and/or counseling patient: 25 - 35 minutes - Subjective Interval history: Pt's son and grandson at bedside and states patient has improved from when she was first admitted. Pt knew her grandson but did not recall her or that she is in the hospital. No acute concerns reported by family and they are in agreement with pt staying for further management. - Constitutional Vitals: Temp Pulse Resp BP Pulse Ox 97.6 F 85 17 175/82 98 05/09/18 07:31 05/09/18 07:31 05/09/18 07:31 05/09/18 07:31 05/09/18 07:31 General appearance: Present: A&O X 1, morbidly obese, no acute distress - Head Head exam: Present: atraumatic, normocephalic - Eye Eye exam: Present: PERRL, conjuntiva pink, sclera anicteric Pupils: Present: PERRL - Neck Neck exam general surgery: Present: supple, trachea midline. Absent: lymphadenopathy - Respiratory Respiratory exam: Present: CTAB. Absent: accessory muscle use, rales, rhonchi, wheezes - Cardiovascular Cardiovascular exam: Present: RRR, +S1, +S2, systolic murmur. Absent: diastolic murmur, gallop, rubs - GI/Abdominal GI/Abdominal exam: Present: normal bowel sounds, soft, no peritoneal signs. Absent: distended, tenderness - Extremities Exam Extremities exam: Present: pedal edema, warm, radial pulses palpable and symmetrical. Absent: calf tenderness, cyanotic - Neurological Exam Neurological exam: Present: CN II-XII intact, oriented X3, no focal deficits. Absent: pronater drift, facial droop, speech deficit - Skin Skin exam: Present: dry, intact Internal Medicine: Result - Labs CBC & Chem 7: 05/09/18 06:37 05/09/18 06:37 Labs: Short CBC 05/09/18 Range/Units 06:37 WBC 12.6 H (4.3-11.1) K/mcL Hgb 8.9 L (11.5-15.4) g/dL Hct 27.8 L (35.3-44.9) % Plt Count 400 (140-400) K/mcL Neutrophils # 8.0 (1.6-8.9) K/mcL BMP 05/08/18 05/09/18 12:40 06:37 Sodium 134 L 134 L Potassium 4.2 4.1 Chloride 106 106 Carbon Dioxide 23 25 BUN 15 18 Creatinine 0.70 0.63 Glucose 143 H 103 Calcium 9.1 8.9 Liver Function 05/09/18 Range/Units 06:37 Total Bilirubin 0.2 L (0.3-1.0) mg/dL AST 17 (13-39) Units/L ALT 14 (7-52) Units/L Alkaline Phosphatase 68 (34-104) Units/L Albumin 2.7 L (3.5-5.7) g/dL - ABG Interpretation ABG results: PT/INR, D-dimer PT 12.0 Seconds (9.4-12.1) 05/06/18 19:31 Consult Discharge Plan - Plan Referrals: NONE,PCP [Non-Partnered Physician] - (Patient is a bedhold in [facility])
[2018-05-09] MEDS: Ascorbic Acid 500 MG TABLET PO SCH (09:30)
[2018-05-09] MEDS: Nitrofurantoin (BID) 100 MG CAPSULE PO SCH ×2 (09:30→16:52)
[2018-05-09] MEDS: Aspirin 81 MG TAB.CHEW PO SCH (09:30)
[2018-05-09] MEDS: Lactobacillus 1 EACH CAP.SPRINK PO SCH ×2 (09:30→22:06)
[2018-05-09] MEDS: hydrALAZINE 25 MG TABLET PO SCH ×3 (09:30→22:06)
[2018-05-09] MEDS: Multivit/Ca/Min/Fe/FA 1 TAB TABLET PO SCH (09:30)
[2018-05-09] MEDS: amLODIPine 5 MG TABLET PO SCH (09:30)
[2018-05-09] MEDS ORDERED: Furosemide 20 MG TABLET PO ONE (17:55)
[2018-05-09] MEDS: Mirtazapine 15 MG TABLET PO SCH (22:06)
[2018-05-10] MEDS: *HR* Enoxaparin 40 MG/0.4 ML SYRINGE SQ SCH (04:37)
[2018-05-10 09:27] LABS: % Iron Saturation 15 % (15-50); BUN/Creatinine Ratio 28 (6-26); Blood Urea Nitrogen 17 mg/dL (8-23); Calcium 9.4 mg/dL (8.6-10.3); Carbon Dioxide 27 mEq/L (23-29); Chloride 100 mEq/L (98-107); Glucose 123 mg/dL (70-105); Iron 34 mcg/dL (50-170); Osmolality,Calculated 277 (280-300); Potassium 4.1 mEq/L (3.5-5.1); Sodium 132 mEq/L (136-145); Transferrin 157 mg/dL (203-362); eGFR For African Americans > 60 (> 60); eGFR For Non-African Americans > 60 (> 60)
[2018-05-10] MEDS: Multivit/Ca/Min/Fe/FA 1 TAB TABLET PO SCH (11:15)
[2018-05-10] MEDS: Nitrofurantoin (BID) 100 MG CAPSULE PO SCH ×2 (11:15→18:19)
[2018-05-10] MEDS: Ascorbic Acid 500 MG TABLET PO SCH (11:15)
[2018-05-10] MEDS: amLODIPine 5 MG TABLET PO SCH (11:16)
[2018-05-10] MEDS: Aspirin 81 MG TAB.CHEW PO SCH (11:16)
[2018-05-10] MEDS: hydrALAZINE 25 MG TABLET PO SCH ×3 (11:16→20:37)
[2018-05-10 17:33] LABS: Basophils % 0.2 %; Eosinophils # 0.2 K/mcL (0.0-0.6); Eosinophils % 2.1 %; Hematocrit 30.1 % (35.3-44.9); Hemoglobin 9.7 g/dL (11.5-15.4); Immature Granulocytes % 1.2 % (0-4); Lymphocytes # 2.2 K/mcL (0.6-4.6); Lymphocytes % 19.4 %; Mean Corpuscular HGB Conc 32.2 g/dL (31.6-35.5); Mean Corpuscular Hemoglobin 30.1 pg (28.0-33.3); Mean Corpuscular Volume 93.5 fL (83.0-100.0); Mean Platelet Volume 9.2 fL (9.4-12.4); Monocytes # 1.2 K/mcL (0.0-1.3); Monocytes % 10.1 %; Neutrophils # 7.7 K/mcL (1.6-8.9); Platelet Count 415 K/mcL (140-400); Red Blood Count 3.22 M/mcL (3.82-4.97)
--- NOTE | 2018-05-10 18:30 | Discharge Summary ---
- NOTES TO OUTPATIENT PROVIDER Notes to Outpatient Provider: PCP at facility in 3 to 5 days Date of Encounter: 05/10/18 Time of Encounter: 18:30 - Discharge Diagnosis (1) Altered mental status Priority: Primary Status: Resolved Assessment and Plan: Likely multi-factorial due to UTI and hyponatremia. Continues to improve. Family stated 05/09/2018 that pt's mentation was improved compared to when she was admitted. Qualifiers: Altered mental status type: unspecified Qualified Code(s): R41.82 - Altered mental status, unspecified (2) Hyponatremia Priority: Primary Status: Acute Assessment and Plan: Son states ptt had been on NA tabs but became hypernatremic, hence tabs where discontinued. Pt was admitted with hyponatremia which has imprvoed with fluids. Pt's son states pt's mentation changes whenever she has fluctuations in her Na levels. Recommend monitoring Na at least twice a week at rehab facility and recommend out pt follow up with reactor technician as well for further evaluation. Pt developed edema following IVF hydration so was given Lasix 20 mg PO x one dose 05/09/2018. Will recommend resume salt tabs or now while monitoring Na levels at least twice a week. (3) Acute cystitis Priority: Primary Status: Acute Assessment and Plan: Urine culture and sensitivity still pending. Rehab to follow up on final results. Urine sample sent to [place] for further testing per case management. Leukocytosis down to 11.4. continue on macrobid and omnicef. Qualifiers: Qualified Code(s): N30.00 - Acute cystitis without hematuria (4) CAD (coronary artery disease) Priority: Secondary Status: Chronic Assessment and Plan: ASA and Zocor. Qualifiers: Coronary Disease-Associated Artery/Lesion type: [place] artery [place] vs. transplanted heart: [place] heart Associated angina: without angina Qualified Code(s): I25.10 - Atherosclerotic heart disease of [place] coronary artery without angina pectoris (5) CKD (chronic kidney disease), stage III Priority: Secondary Status: Chronic Assessment and Plan: monitoring renal function QD. Cr 0.60 at discharge (6) Anemia Priority: Secondary Status: Chronic Assessment and Plan: Hgb 9.7 stable. Will monitor as needed. Qualifiers: Anemia type: unspecified type Qualified Code(s): D64.9 - Anemia, unspecified Hospital course: Ms. Rolle is a 83 year old female with prior history of urinary retention, hypertension, dementia, hyponatremia who presents to the ER via EMS from her [facility] with the chief complaint of abnormal labs with sodium of 126. It was also reported that she seemed more altered than her baseline. Discharge discussed with: nurse - Time Spent with Patient Total time spent providing and/or coordinating discharge services: Greater than 30 minutes - Discharge Medications Home Medications: Pantoprazole Sodium [Protonix] 40 mg PO DAILY 10/12/16 [History] Aspirin 81 mg PO DAILY 12/01/16 [History] Losartan Potassium [Cozaar] 50 mg PO BID #60 tab 12/03/16 [Rx] Pravastatin Sodium [Pravachol] 20 mg PO HS #30 tablet 12/03/16 [Rx] Metoprolol [Lopressor] 25 mg PO BID 11/04/17 [History] Benzonatate 100 mg PO DAILY PRN 12/02/17 [History] Guaifenesin [Mucinex] 600 mg PO BID PRN 12/02/17 [History] Lactobacillus Acidophilus [Acidophilus] 1 tab PO BID 12/02/17 [History] Docusate [Colace] 100 mg PO BID PRN capsule 12/21/17 [Rx] hydrALAZINE [HydrALAZINE] 50 mg PO Q8HR 02/13/18 [History] Amlodipine Besylate 2.5 mg PO DAILY 04/07/18 [History] Multivit-Min/FA/Lycopen/Lutein [A Thru Z Select Multivit Tab] 1 tab PO DAILY 04/19 [History] Acetaminophen [Tylenol] 650 mg PO Q6HR PRN tablet 04/14/18 [Rx] Lidocaine Patch [Lidoderm 5% patch] 1 patch TD DAILY 3 Days #3 adh..patch [Rx] Tramadol HCl [Ultram] 50 mg PO Q12H PRN 4 Days #5 tablet 04/14/18 [Rx] Ascorbic Acid [Vitamin C with Afshan Hips] 500 mg PO DAILY 05/06/18 [History] Bisacodyl [Dulcolax] 10 mg RC DAILY PRN 05/06/18 [History] LORazepam [Ativan] 0.5 mg PO TID 05/06/18 [History] Mirtazapine 7.5 mg PO DAILY 05/06/18 [History] Sertraline [Zoloft] 100 mg PO DAILY 05/06/18 [History] Cefdinir [Omnicef] 300 mg PO BID 10 Days #20 capsule 05/10/18 [Rx] Nitrofurantoin (BID) [Macrobid] 100 mg PO BIDWM 14 Days #7 capsule 05/10/18 [Rx] Allergies/Adverse Reactions: 3 Allergy/AdvReac Type Severity Reaction Status Date / Time aspirin AdvReac See Verified 05/06/18 12:17 Comments Date of admission: 05/10/18 08:07 Primary care physician: Daria Bedoya - Constitutional Vitals: Temp Pulse Resp BP Pulse Ox 98.1 F 82 16 139/78 96 05/10/18 15:30 05/10/18 15:30 05/10/18 15:30 05/10/18 15:30 05/10/18 15:30 General appearance: Present: A&O X 1, morbidly obese, no acute distress - Head Head exam: Present: atraumatic, normocephalic - Eye Eye exam: Present: PERRL, conjuntiva pink, sclera anicteric Pupils: Present: PERRL - Neck Neck exam general surgery: Present: supple, trachea midline. Absent: lymphadenopathy - Respiratory Respiratory exam: Present: CTAB. Absent: accessory muscle use, rales, rhonchi, wheezes - Cardiovascular Cardiovascular exam: Present: RRR, +S1, +S2. Absent: diastolic murmur, gallop, rubs, systolic murmur - GI/Abdominal GI/Abdominal exam: Present: normal bowel sounds, soft, no peritoneal signs. Absent: distended, tenderness - Extremities Exam Extremities exam: Present: warm, radial pulses palpable and symmetrical. Absent : calf tenderness, cyanotic, pedal edema - Neurological Exam Neurological exam: Present: CN II-XII intact, oriented X3, no focal deficits. Absent: pronater drift, facial droop, speech deficit - Skin Skin exam: Present: dry, intact - Patient Status Disposition: Transfer Inpatient Rehab Fac Condition: Good - Discharge Instructions Follow Up With: NONE,PCP [Non-Partnered Physician] - (Patient is a bedhold in [facility]) - Diet and Activity Activity: as per physical therapy Diet: advance to your usual diet
--- NOTE | 2018-05-10 18:47 | Physician Discharge Referral ---
ExtendedCare Referral Info Transfer To: rehab - Diagnosis (1) Altered mental status Status: Resolved (2) Hyponatremia Status: Acute (3) Acute cystitis Status: Acute (4) CAD (coronary artery disease) Status: Chronic (5) CKD (chronic kidney disease), stage III Status: Chronic (6) Anemia Status: Chronic - Transfer Medications Prescriptions: Cefdinir [Omnicef] 300 mg PO BID 10 Days #20 capsule Nitrofurantoin (BID) [Macrobid] 100 mg PO BIDWM 14 Days #7 capsule Home Medications: Pantoprazole Sodium [Protonix] 40 mg PO DAILY 10/12/16 [History] Aspirin 81 mg PO DAILY 12/01/16 [History] Losartan Potassium [Cozaar] 50 mg PO BID #60 tab 12/03/16 [Rx] Pravastatin Sodium [Pravachol] 20 mg PO HS #30 tablet 12/03/16 [Rx] Metoprolol [Lopressor] 25 mg PO BID 11/04/17 [History] Benzonatate 100 mg PO DAILY PRN 12/02/17 [History] Guaifenesin [Mucinex] 600 mg PO BID PRN 12/02/17 [History] Lactobacillus Acidophilus [Acidophilus] 1 tab PO BID 12/02/17 [History] Docusate [Colace] 100 mg PO BID PRN capsule 12/21/17 [Rx] hydrALAZINE [HydrALAZINE] 50 mg PO Q8HR 02/13/18 [History] Amlodipine Besylate 2.5 mg PO DAILY 04/07/18 [History] Multivit-Min/FA/Lycopen/Lutein [A Thru Z Select Multivit Tab] 1 tab PO DAILY 04/19 [History] Acetaminophen [Tylenol] 650 mg PO Q6HR PRN tablet 04/14/18 [Rx] Lidocaine Patch [Lidoderm 5% patch] 1 patch TD DAILY 3 Days #3 adh..patch [Rx] Tramadol HCl [Ultram] 50 mg PO Q12H PRN 4 Days #5 tablet 04/14/18 [Rx] Ascorbic Acid [Vitamin C with Afshan Hips] 500 mg PO DAILY 05/06/18 [History] Bisacodyl [Dulcolax] 10 mg RC DAILY PRN 05/06/18 [History] LORazepam [Ativan] 0.5 mg PO TID 05/06/18 [History] Mirtazapine 7.5 mg PO DAILY 05/06/18 [History] Sertraline [Zoloft] 100 mg PO DAILY 05/06/18 [History] Cefdinir [Omnicef] 300 mg PO BID 10 Days #20 capsule 05/10/18 [Rx] Nitrofurantoin (BID) [Macrobid] 100 mg PO BIDWM 14 Days #7 capsule 05/10/18 [Rx] Allergies/Adverse Reactions: 3 Allergy/AdvReac Type Severity Reaction Status Date / Time aspirin AdvReac See Verified 05/06/18 12:17 Comments - Respiratory Orders Smoking Cessation: Smoking cessation has been advised. For more information, call the [place] Tobacco Quit Line at 6-909-BNAE-NOW. - Advance Directives Code Status: Full Code - Rehabiliation Orders Rehab Potential: Fair - Diet Orders Cardiac CERTIFICATION: I certify that the transfer of the above named patient to an Extended Care Facility is necessary for the continuing treatment of the diagnosis listed. The above information is true and accurate reflection of patient's current condition. Confidential - Redisclosure prohibited without a patient's written consent.
[2018-05-10 20:37] VITALS: BP 149/83
[2018-05-10] MEDS: Lactobacillus 1 EACH CAP.SPRINK PO SCH (20:37)
[2018-05-10] MEDS: Mirtazapine 15 MG TABLET PO SCH (20:38)
== END 2018-05-10 21:27 | DRG 690 ==
LOC: 2ANU 12:00 → EMEROO 12:00 → SUATTDRO 16:11 → 2ANU 16:49
PROVIDERS: ADMIT Internal Medicine; ATTEND Student in an Organized Health Care Education/Training Program

== ENCOUNTER 2019-03-22 09:52 | Inpatient (IN) ==
--- NOTE | 2019-03-22 10:04 | Emergency Department Note ---
Disposition Clinical Impression: Frail elderly, Altered mental status, Elevated troponin, Dehydration, UTI (urinary tract infection), Respiratory insufficiency, Hypercarbia Disposition: Admitted As Inpatient Referrals: NONE,PCP [Primary Care Provider] - Time of Disposition: 12:53 General Adult HPI - General Stated complaint: unresponsive - History of Present Illness HPI Narrative: 83[facility]year-old [facility], reportedly [facility] providers found the patient poorly responsive, no history of trauma or seizure. EMS was notified and on arrival to the scene they reported the patient is poorly responsive, glucose check 118, O2 sat initially 83% status post oxygen mask the patient's saturations went up to 100%. The patient is unable to give a clear history secondary to altered mental status. The patient's son came to the emergency department and states the patient started hallucinating on Thursday. He stated that she seemed to be indicating that she was seeing things in the room that were not there starting Thursday evening. She became somewhat weaker over the last few days and progressed to confusion this morning. - Related Data Home Medications Medication Instructions Recorded Confirmed Pantoprazole Sodium [Protonix] 40 mg PO DAILY 10/12/16 03/22/19 Aspirin 81 mg PO DAILY 12/01/16 03/22/19 Metoprolol [Lopressor] 25 mg PO BID 11/04/17 03/22/19 Benzonatate 100 mg PO DAILY PRN 12/02/17 03/22/19 Guaifenesin [Mucinex] 600 mg PO BID PRN 12/02/17 03/22/19 Lactobacillus Acidophilus 1 tab PO BID 12/02/17 03/22/19 [Acidophilus] hydrALAZINE [HydrALAZINE] 50 mg PO Q8HR 02/13/18 03/22/19 Amlodipine Besylate 7.5 mg PO DAILY 04/07/18 03/22/19 Multivit-Min/FA/Lycopen/Lutein [A 1 tab PO DAILY 04/07/18 03/22/19 Thru Z Select Multivit Tab] Ascorbic Acid [Vitamin C with Afshan 500 mg PO DAILY 05/06/18 03/22/19 Hips] Bisacodyl [Dulcolax] 10 mg RC DAILY PRN 05/06/18 03/22/19 Sertraline [Zoloft] 50 mg PO DAILY 05/06/18 03/22/19 LORazepam [Ativan] 0.5 mg PO DAILY 03/22/19 03/22/19 MOM Conc [Milk of Magnesia Conc] 30 ml PO DAILY PRN 03/22/19 03/22/19 Nystatin Cream [Mycostatin Cream] 1 applic TP BID 03/22/19 03/22/19 Previous Rx's Medication Instructions Recorded Losartan Potassium [Cozaar] 50 mg PO BID #60 tab 12/03/16 Docusate [Colace] 100 mg PO BID PRN capsule 12/21/17 Acetaminophen [Tylenol] 650 mg PO Q6HR PRN tablet 04/14/18 Tramadol HCl [Ultram] 50 mg PO Q12H PRN 4 Days #5 tablet 05/10/18 Allergies Allergy/AdvReac Type Severity Reaction Status Date / Time aspirin AdvReac See Verified 02/01/19 19:43 Comments All systems ED: reviewed and negative except as stated. Past Medical History - Past Medical History Medical history: Reports: coronary artery disease, GERD, hypertension, renal disease, seizures Surgical history: Reports: appendectomy, hip replacement (left hip fracture/repair), other (hemorrhoidectomy) Psychiatric history: Reports: anxiety, depression - Social History Smoking Status: Never smoker Smokeless Tobacco Status: No Alcohol use: Reports: none Drug use: Reports: none Physical Exam - General Limitations: altered mental status General appearance: other (Can follow the simplest of commands but does not vocalize appropriately, arousable to sternal rub.) - Head Head exam: atraumatic, normocephalic, normal inspection - Eye Eye exam: Present: normal appearance, PERRL, EOMI - ENT ENT exam: normal exam, normal oropharynx, mucous membranes moist, normal external ear exam - Neck Neck exam: Present: normal inspection, full ROM, trachea midline - Chest Chest inspection: Present: normal inspection, symmetric chest wall rise. Absent: tenderness - Respiratory Respiratory exam: Present: normal lung sounds bilaterally. Absent: respiratory distress, prolonged expiratory phase - Cardiovascular Cardiovascular exam: Present: regular rate, normal rhythm, normal heart sounds - Abdominal Exam Abdominal exam: Present: soft, Non-Tender, normal bowel sounds. Absent: tende rness, distention, guarding, rebound, rigidity, trauma - Extremities Exam Extremities exam: Present: normal capillary refill, other (Pressure ulcer left heel, chronic ankle and foot deformities noted, all 4 extremities warm and well perfused without cyanosis or significant edema. No acute injuries noted.). Absent: calf tenderness - Expanded Lower Extremity Exam Neurovascular/Tendon exam: Present: normal capillary refill. Absent: extremity cold to touch, pallor - Back Exam Back exam: Present: normal inspection, full ROM. Absent: tenderness, CVA tenderness (R), CVA tenderness (L) - Neurological Exam Neurological exam: Present: alert, CN II-XII intact, other (Extremities show symmetric muscle tone, the patient is able to grasp with both arms and pull no evidence of dissymmetry and strength). Absent: oriented X3 - Psychiatric Psychiatric exam: Present: flat affect - Skin Skin exam: Present: warm, dry, intact, normal color Course Vital Signs Temperature 98.3 F 03/22/19 09:57 Pulse Rate 82 03/22/19 09:57 Respiratory Rate 18 03/22/19 09:57 Blood Pressure 168/74 03/22/19 09:57 O2 Sat by Pulse Oximetry 99 03/22/19 09:57 Temperature 98.3 F 03/22/19 09:57 Pulse Rate 66 03/22/19 13:14 Respiratory Rate 19 03/22/19 13:52 Blood Pressure 152/73 03/22/19 13:14 O2 Sat by Pulse Oximetry 98 03/22/19 13:52 Oxygen Delivery Oxygen Delivery Simple Mask Medical Decision Making - [facility] Narrative Medical decision making narrative: The patient was monitored in the emergency department and was on oxygen by mask as her initial O2 saturation was noted to be depressed. Basic laboratories show changes suggestive of dehydration. The patient was given IV fluids. Her Andrade catheter was replaced no urine output noted. CT head shows no acute change. White count slightly elevated lactate negative. Patient slightly tachypnea. ABG obtained which showed hypercarbia, BiPAP initiated the patient rated persistently confused, consulted with the hospitalist on-call who came to the emergency Department evaluated the patient recommend a critical care consult. The scholastic aptitude test grader came to the emergency department and evaluated the patient and recommended adjustments in the BiPAP with repeat blood gas, if improved do not intubate. Repeat blood gas was obtained which was improved and the patient became more alert and was opening her eyes and grasping her relatives fingers. Urinalysis did come back showing changes suggestive infection. Rocephin ordered. Blood cultures and been sent. IV fluid has been given. The patient's white count slightly elevated she was slightly tachypnic and may meet Sirs or sepsis criteria. No evidence of hypotension or lactic acidemia noted. The patient is currently stable pending admission, the family is agreeable. The hospitalist is agreeable. The patient is going to 2 N. the patient does not describe chest pain. EKG does not show acute changes. She is allergic to aspirin, aspirin was held. - Lab Data Lab results reviewed: Yes I reviewed the patient's lab results. Result diagrams: 03/22/19 10:11 03/22/19 10:11 Lab Results 03/22/19 03/22/19 03/22/19 Range/Units 10:11 10:11 10:11 WBC 12.2 H (4.3-11.1) K/mcL RBC 4.19 (3.82-4.97) M/mcL Hgb 13.1 (11.5-15.4) g/dL Hct 40.7 (35.3-44.9) % MCV 97.1 (83.0-100.0) fL MCH 31.3 (28.0-33.3) pg MCHC 32.2 (31.6-35.5) g/dL RDW 12.7 (11.5-14.5) % Plt Count 299 (140-400) K/mcL MPV 9.2 L (9.4-12.4) fL Immature Gran % 0.8 (0-4) % Seg Neutrophils % 84.9 % Lymphocytes % 9.7 % Monocytes % 4.3 % Eosinophils % 0.1 % Basophils % 0.2 % Neutrophils # 10.4 H (1.6-8.9) K/mcL Lymphocytes # 1.2 (0.6-4.6) K/mcL Monocytes # 0.5 (0.0-1.3) K/mcL Eosinophils # 0.0 (0.0-0.6) K/mcL Basophils # 0.0 (0.0-0.2) K/mcL PT 11.1 (9.4-12.1) Seconds INR 1.0 APTT 28.0 (26.0-36.0) Seconds Sample Site ABG pH (7.32-7.45) pH Units ABG pCO2 (35-45) mmHg ABG pO2 (85-104) mmHg ABG HCO3 (21-27) mEq/L ABG Total CO2 (20-26) mEq/L ABG O2 Saturation (95-98) % ABG Base Excess (-2 to 3) mEq/L Jairo Test O2 Delivery Device Inspired O2 (1-15=lpm [id number]=%) Tidal Volume cc Sodium (136-145) mEq/L Potassium (3.5-5.1) mEq/L Chloride (98-107) mEq/L Carbon Dioxide (23-29) mEq/L BUN (8-23) mg/dL Creatinine (0.60-1.20) mg/dL Est GFR ( Amer) (> 60) Est GFR (Non-Af Amer) (> 60) BUN/Creatinine Ratio (6-26) Glucose (70-105) mg/dL Calculated Osmolality (280-300) Lactic Acid 0.9 (0.5-2.2) mmol/L Calcium (8.6-10.3) mg/dL Total Bilirubin (0.3-1.0) mg/dL AST (13-39) Units/L ALT (7-52) Units/L Alkaline Phosphatase (34-104) Units/L Ammonia (16-53) mcmol/L Troponin I (< 0.04) ng/mL Serum Total Protein (6.4-8.9) g/dL Albumin (3.5-5.7) g/dL Globulin (2.4-3.5) g/dL Albumin/Globulin Ratio (1.1-2.2) TSH (0.340-5.600) mcIU/mL Free T4 (0.70-2.00) ng/dl Urine Color (Yellow) Urine Clarity (Clear) Urine pH (5.0-8.0) pH Units Ur Specific [place] (1.010-1.025) Urine Protein (Neg-Trace) mg/dL Urine Glucose (UA) (Normal) mg/dL Urine Ketones (Negative) mg/dL Urine Blood (Negative) Urine Nitrite (Negative) Urine Bilirubin (Negative) Urine Urobilinogen (Normal) mg/dL Ur Leukocyte Esterase (Negative) Urine Microscopic RBC (0-3) per hpf Urine Microscopic WBC (0-3) per hpf Ur Squamous Epith Cells (None-Few) per lpf Urine Bacteria (None-Few) per hpf Ur Culture Indicated? (NO) Salicylates (15.0-30.0) mg/dL Urine Opiates Screen (Srytuj=103) ng/mL Acetaminophen (10-20) mcg/mL Ur Barbiturates Screen (Jrlusf=927) ng/mL Ur Phencyclidine Scrn (Cutoff=25) ng/mL Ur Amphetamines Screen (Kiqxlk=4443) ng/mL U Benzodiazepines Scrn (Laogrb=369) ng/mL Urine Cocaine Screen (Cutoff= 300) ng/mL U Marijuana (THC) Screen (Cutoff = 50) ng/mL Ur Drug Screen Interp Ethyl Alcohol (Less than 10) mg/dL Person Notif of Crit 03/22/19 03/22/19 03/22/19 Range/Units 10:11 10:11 13:36 WBC (4.3-11.1) K/mcL RBC (3.82-4.97) M/mcL Hgb (11.5-15.4) g/dL Hct (35.3-44.9) % MCV (83.0-100.0) fL MCH (28.0-33.3) pg MCHC (31.6-35.5) g/dL RDW (11.5-14.5) % Plt Count (140-400) K/mcL MPV (9.4-12.4) fL Immature Gran % (0-4) % Seg Neutrophils % % Lymphocytes % % Monocytes % % Eosinophils % % Basophils % % Neutrophils # (1.6-8.9) K/mcL Lymphocytes # (0.6-4.6) K/mcL Monocytes # (0.0-1.3) K/mcL Eosinophils # (0.0-0.6) K/mcL Basophils # (0.0-0.2) K/mcL PT (9.4-12.1) Seconds INR APTT (26.0-36.0) Seconds Sample Site L Radial ABG pH 7.28 L (7.32-7.45) pH Units ABG pCO2 71 H* (35-45) mmHg ABG pO2 128 H (85-104) mmHg ABG HCO3 33 H (21-27) mEq/L ABG Total CO2 35 H (20-26) mEq/L ABG O2 Saturation 98 (95-98) % ABG Base Excess 5 H (-2 to 3) mEq/L Jairo Test N/A O2 Delivery Device Oxy Mask Inspired O2 6.0 (1-15=lpm [id number]=%) Tidal Volume cc Sodium 138 (136-145) mEq/L Potassium 3.3 L (3.5-5.1) mEq/L Chloride 97 L (98-107) mEq/L Carbon Dioxide 33 H (23-29) mEq/L BUN 24 H (8-23) mg/dL Creatinine 0.59 L (0.60-1.20) mg/dL Est GFR ( Amer) > 60 (> 60) Est GFR (Non-Af Amer) > 60 (> 60) BUN/Creatinine Ratio 41 H (6-26) Glucose 108 H (70-105) mg/dL Calculated Osmolality 291 (280-300) Lactic Acid (0.5-2.2) mmol/L Calcium 9.7 (8.6-10.3) mg/dL Total Bilirubin 0.4 (0.3-1.0) mg/dL AST 21 (13-39) Units/L ALT 14 (7-52) Units/L Alkaline Phosphatase 55 (34-104) Units/L Ammonia 36 (16-53) mcmol/L Troponin I 0.07 H* (< 0.04) ng/mL Serum Total Protein 6.3 L (6.4-8.9) g/dL Albumin 3.7 (3.5-5.7) g/dL Globulin 2.6 (2.4-3.5) g/dL Albumin/Globulin Ratio 1.4 (1.1-2.2) TSH 0.714 (0.340-5.600) mcIU/mL Free T4 1.11 (0.70-2.00) ng/dl Urine Color (Yellow) Urine Clarity (Clear) Urine pH (5.0-8.0) pH Units Ur Specific [place] (1.010-1.025) Urine Protein (Neg-Trace) mg/dL Urine Glucose (UA) (Normal) mg/dL Urine Ketones (Negative) mg/dL Urine Blood (Negative) Urine Nitrite (Negative) Urine Bilirubin (Negative) Urine Urobilinogen (Normal) mg/dL Ur Leukocyte Esterase (Negative) Urine Microscopic RBC (0-3) per hpf Urine Microscopic WBC (0-3) per hpf Ur Squamous Epith Cells (None-Few) per lpf Urine Bacteria (None-Few) per hpf Ur Culture Indicated? (NO) Salicylates < 2.5 L (15.0-30.0) mg/dL Urine Opiates Screen (Lrkfao=036) ng/mL Acetaminophen < 10 L (10-20) mcg/mL Ur Barbiturates Screen (Zpzuqb=707) ng/mL Ur Phencyclidine Scrn (Cutoff=25) ng/mL Ur Amphetamines Screen (Pipmhl=1530) ng/mL U Benzodiazepines Scrn (Zbmsgp=214) ng/mL Urine Cocaine Screen (Cutoff= 300) ng/mL U Marijuana (THC) Screen (Cutoff = 50) ng/mL Ur Drug Screen Interp Ethyl Alcohol < 10 (Less than 10) mg/dL Person Notif of Crit Dr. Espinoza 03/22/19 03/22/19 03/22/19 Range/Units 14:30 14:30 15:47 WBC (4.3-11.1) K/mcL RBC (3.82-4.97) M/mcL Hgb (11.5-15.4) g/dL Hct (35.3-44.9) % MCV (83.0-100.0) fL MCH (28.0-33.3) pg MCHC (31.6-35.5) g/dL RDW (11.5-14.5) % Plt Count (140-400) K/mcL MPV (9.4-12.4) fL Immature Gran % (0-4) % Seg Neutrophils % % Lymphocytes % % Monocytes % % Eosinophils % % Basophils % % Neutrophils # (1.6-8.9) K/mcL Lymphocytes # (0.6-4.6) K/mcL Monocytes # (0.0-1.3) K/mcL Eosinophils # (0.0-0.6) K/mcL Basophils # (0.0-0.2) K/mcL PT (9.4-12.1) Seconds INR APTT (26.0-36.0) Seconds Sample Site R Radial ABG pH 7.37 (7.32-7.45) pH Units ABG pCO2 53 H (35-45) mmHg ABG pO2 93 (85-104) mmHg ABG HCO3 31 H (21-27) mEq/L ABG Total CO2 32 H (20-26) mEq/L ABG O2 Saturation 97 (95-98) % ABG Base Excess 4 H (-2 to 3) mEq/L Jairo Test N/A O2 Delivery Device BiPAP Inspired O2 30.0 (1-15=lpm lf19-211=%) Tidal Volume 450 cc Sodium (136-145) mEq/L Potassium (3.5-5.1) mEq/L Chloride (98-107) mEq/L Carbon Dioxide (23-29) mEq/L BUN (8-23) mg/dL Creatinine (0.60-1.20) mg/dL Est GFR ( Amer) (> 60) Est GFR (Non-Af Amer) (> 60) BUN/Creatinine Ratio (6-26) Glucose (70-105) mg/dL Calculated Osmolality (280-300) Lactic Acid (0.5-2.2) mmol/L Calcium (8.6-10.3) mg/dL Total Bilirubin (0.3-1.0) mg/dL AST (13-39) Units/L ALT (7-52) Units/L Alkaline Phosphatase (34-104) Units/L Ammonia (16-53) mcmol/L Troponin I (< 0.04) ng/mL Serum Total Protein (6.4-8.9) g/dL Albumin (3.5-5.7) g/dL Globulin (2.4-3.5) g/dL Albumin/Globulin Ratio (1.1-2.2) TSH (0.340-5.600) mcIU/mL Free T4 (0.70-2.00) ng/dl Urine Color Yellow (Yellow) Urine Clarity Turbid A (Clear) Urine pH 6.0 (5.0-8.0) pH Units Ur Specific [place] 1.020 (1.010-1.025) Urine Protein >=300 H (Neg-Trace) mg/dL Urine Glucose (UA) Normal (Normal) mg/dL Urine Ketones 15 H (Negative) mg/dL Urine Blood Moderate H (Negative) Urine Nitrite Positive A (Negative) Urine Bilirubin Negative (Negative) Urine Urobilinogen Normal (Normal) mg/dL Ur Leukocyte Esterase Large H (Negative) Urine Microscopic RBC 5-15 H (0-3) per hpf Urine Microscopic WBC TNTC H (0-3) per hpf Ur Squamous Epith Cells Many H (None-Few) per lpf Urine Bacteria Many H (None-Few) per hpf Ur Culture Indicated? YES A (NO) Salicylates (15.0-30.0) mg/dL Urine Opiates Screen Negative (Wusqwe=667) ng/mL Acetaminophen (10-20) mcg/mL Ur Barbiturates Screen Negative (Hzggqa=725) ng/mL Ur Phencyclidine Scrn Negative (Cutoff=25) ng/mL Ur Amphetamines Screen Negative (Arzrqx=3854) ng/mL U Benzodiazepines Scrn Negative (Sxnptw=389) ng/mL Urine Cocaine Screen Negative (Cutoff= 300) ng/mL U Marijuana (THC) Screen Negative (Cutoff = 50) ng/mL Ur Drug Screen Interp See Below Ethyl Alcohol (Less than 10) mg/dL Person Notif of Crit - Radiology Data Radiology results reviewed: Yes I reviewed the patient's radiology results.
[2019-03-22 10:29] LABS: Basophils % 0.2 %; Eosinophils % 0.1 %; Hematocrit 40.7 % (35.3-44.9); Hemoglobin 13.1 g/dL (11.5-15.4); Immature Granulocytes % 0.8 % (0-4); Lymphocytes # 1.2 K/mcL (0.6-4.6); Lymphocytes % 9.7 %; Mean Corpuscular HGB Conc 32.2 g/dL (31.6-35.5); Mean Corpuscular Hemoglobin 31.3 pg (28.0-33.3); Mean Corpuscular Volume 97.1 fL (83.0-100.0); Mean Platelet Volume 9.2 fL (9.4-12.4); Monocytes # 0.5 K/mcL (0.0-1.3); Monocytes % 4.3 %; Neutrophils # 10.4 K/mcL (1.6-8.9); Platelet Count 299 K/mcL (140-400); Red Blood Count 4.19 M/mcL (3.82-4.97); Red Cell Distribution Width 12.7 % (11.5-14.5); Segmented Neutrophils % 84.9 %
[2019-03-22 10:36] LABS: Prothrombin Time 11.1 Seconds (9.4-12.1)
[2019-03-22 10:58] LABS: Acetaminophen < 10 mcg/mL (10-20); Alanine Aminotransferase 14 Units/L (7-52); Albumin 3.7 g/dL (3.5-5.7); Albumin/Globulin Ratio 1.4 (1.1-2.2); Alkaline Phosphatase 55 Units/L (34-104); Aspartate Amino Transferase 21 Units/L (13-39); BUN/Creatinine Ratio 41 (6-26); Bilirubin,Total 0.4 mg/dL (0.3-1.0); Blood Urea Nitrogen 24 mg/dL (8-23); Calcium 9.7 mg/dL (8.6-10.3); Carbon Dioxide 33 mEq/L (23-29); Chloride 97 mEq/L (98-107); Ethanol < 10 mg/dL (Less than 10); Globulin 2.6 g/dL (2.4-3.5); Glucose 108 mg/dL (70-105); Osmolality,Calculated 291 (280-300); Potassium 3.3 mEq/L (3.5-5.1); Salicylate < 2.5 mg/dL (15.0-30.0); Sodium 138 mEq/L (136-145); Total Protein 6.3 g/dL (6.4-8.9); eGFR For Non-African Americans > 60 (> 60)
--- NOTE | 2019-03-22 11:43 | Electrocardiograph Report ---
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
[2019-03-22 12:35] LABS: Troponin I 0.07 ng/mL (< 0.04)
[2019-03-22] MEDS ORDERED: 0.9 % Sodium Chloride 1,000 ML IVC ONE ×2 (12:41→15:54)
[2019-03-22 12:47] LABS: Thyroid Stimulating Hormone 0.714 mcIU/mL (0.340-5.600)
[2019-03-22 13:45] LABS: ABG Base Excess 5 mEq/L (-2 to 3); ABG HCO3 33 mEq/L (21-27); ABG Oxygen Saturation 98 % (95-98); ABG PCO2 71 mmHg (35-45); ABG PH 7.28 pH Units (7.32-7.45); ABG PO2 128 mmHg (85-104); ABG TCO2 35 mEq/L (20-26)
[2019-03-22 14:41] LABS: Bilirubin,Urine Negative (Negative); Blood,Urine Moderate (Negative); Clarity,Urine Turbid (Clear); Color,Urine Yellow (Yellow); Glucose,Urine (UA) Normal (Normal); Ketones,Urine 15 mg/dL (Negative); Leukocyte Esterase,Urine Large (Negative); Nitrite,Urine Positive (Negative); Protein,Urine >=300 mg/dL (Neg-Trace); Urobilinogen,Urine Normal (Normal)
[2019-03-22 14:44] LABS: Bacteria,Urine Many per hpf (None-Few); Squamous Epithelial Cell,Urine Many per lpf (None-Few); WBC,Urine TNTC per hpf (0-3)
[2019-03-22 15:00] LABS: Amphetamine Screen,Urine Negative ng/mL (Cutoff=1000); Barbiturate Screen,Urine Negative ng/mL (Cutoff=200); Benzodiazepines Screen,Urine Negative ng/mL (Cutoff=200); Cannabinoid Screen,Urine Negative ng/mL (Cutoff = 50); Cocaine Screen,Urine Negative ng/mL (Cutoff= 300); Opiate Screen,Urine Negative ng/mL (Cutoff=300); Phencyclidine Screen,Urine Negative ng/mL (Cutoff=25)
[2019-03-22 15:52] LABS: ABG PCO2 53 mmHg (35-45); ABG PH 7.37 pH Units (7.32-7.45); ABG PO2 93 mmHg (85-104)
[2019-03-22 15:53] LABS: ABG Base Excess 4 mEq/L (-2 to 3); ABG HCO3 31 mEq/L (21-27); ABG Oxygen Saturation 97 % (95-98); ABG TCO2 32 mEq/L (20-26); Blood Gas VT 450 cc
[2019-03-22] MEDS ORDERED: cefTRIAXone 1,000 MG in Water for inj. (sterile) 20 ML 10 ML IVP ONE (15:54)
[2019-03-22] MEDS ORDERED: Isovue-370 500 ML BOTTLE IVP ONE (17:21)
[2019-03-22] MEDS ORDERED: Naloxone 0.4 MG/ML INJ IVP PRN (17:52)
[2019-03-22] MEDS ORDERED: Potassium Chloride 40 MEQ, Lidocaine 1% 2 ML in D5% in Water 500 ML IVPB ONE (17:57)
--- NOTE | 2019-03-22 18:10 | Pulmonology Consult Note ---
<Silva Oliver - Last Filed: 03/22/19 18:45> Date of Encounter: 03/22/19 Time of Encounter: 18:02 Assessment and Plan (1) Acute respiratory failure Current Visit: Yes Status: Acute Presented to the ED after becoming unresponsive at outside nursing facility. In the ED she was not responsive to verbal stimuli. Altered mentation could be secondary to hypercapnia versus UTI. She is not on any oxygen at home. In transit her oxygen saturation was 83%. In the ED her pH was noted to be 7.27 PCO2 was elevated at 71. She was placed on the BiPAP. After starting BiPAP, mentation significantly improved. She now responds to verbal stimuli. Her repeat ABG showed pH of 7.37 and PCO2 improved to 53. Lungs are clear to auscultation. Chest x-ray showed minimal bibasilar atelectasis. CT of the head did not show any acute changes. CT of the chest pending. Continue BiPAP. Continue DuoNeb. Qualifiers: Respiratory failure complication: hypoxia and hypercapnia Qualified Code(s): J96.01 - Acute respiratory failure with hypoxia; J96.02 - Acute respiratory failure with hypercapnia History of Present Illness Consult date: 03/22/19 Chief complaint: shortness of breath History of present illness: Ms. Rolle is a 83-year-old female with past medical history of CAD, GERD, hypertension was presented to the ED via EMS from her longterm due to becoming unresponsive. EMS reported her oxygen saturation was 80% and after oxygen mask it went up to 100%. Since presenting to the ED her oxygen saturation continued to decline was subsequently started on BiPAP. Initial ABG showed pH of 7.28 with PCO2 of 71. Repeat ABG shows improvement in pH and PCO2. Due to her unresponsiveness there was a concern that she may need to be intubated pulmonology was consulted in the ED after adjusting BiPAP setting she has become more awake and alert although not oriented to person, place or time. Her son reports that for the past month she had a UTI from her mental status has changed although it acutely worsened 3 days ago. He also reports her oral intake normally consist of just breakfast but has not been hydrating. They deny any recent cough but she does reside at a nursing facility may have had some exposure. In the ED she had a CT of the head which did not show any acute changes chest x- ray showed bibasilar atelectasis worse on the right side. Additionally she appeared hypovolemic and received 2 L of IV fluids. Her urinalysis showed nitrites and leukocyte esterase cultures pending. Past Med Surg Social Fam HX - Past Medical History Medical history: coronary artery disease, GERD, hypertension, renal disease, seizures Additional medical history: falls Psychiatric history: anxiety, depression - Past Surgical History Surgical History: appendectomy, hip replacement (left hip fracture/repair), other (hemorrhoidectomy) Additional surgical history: left hip replacement - Social History Smoking Status: Never smoker Smokeless Tobacco Status: No Alcohol use: none Drug use: none - Family History Mother Family Member Ethnicity: Non- Living Status: Hx Family Cancer: Yes (Breast cancer) Father Family Member Ethnicity: Non- Living Status: Hx Family Cardiac Disorders: Yes (CVA) Hx Family Neuromuscular Disorders: Yes (CVA) Brother Adopted: No Family Member Ethnicity: Non- Living Status: Still Living Hx Family Cardiac Disorders: Yes Hx Family Respiratory Disorders: No Hx Family Cancer: Yes Hx Family GI Disorders: No Hx Family Endocrine Disorder: No Hx Family Neuromuscular Disorders: No Hx Family Neurologic Disorders: No Hx Family HEENT Disorders: No Hx Family Autoimmune Disorders: No Sister Adopted: No Family Member Ethnicity: Non- Living Status: Still Living Hx Family Cardiac Disorders: Yes Hx Family Respiratory Disorders: No Hx Family Cancer: Yes Hx Family GI Disorders: No Hx Family Endocrine Disorder: No Hx Family Neuromuscular Disorders: No Hx Family Neurologic Disorders: No Hx Family HEENT Disorders: No Hx Family Autoimmune Disorders: No Medications and Allergies Pantoprazole Sodium [Protonix] 40 mg PO DAILY 10/12/16 [History] Aspirin 81 mg PO DAILY 12/01/16 [History] Losartan Potassium [Cozaar] 50 mg PO BID #60 tab 12/03/16 [Rx] Metoprolol [Lopressor] 25 mg PO BID 11/04/17 [History] Benzonatate 100 mg PO DAILY PRN 12/02/17 [History] Guaifenesin [Mucinex] 600 mg PO BID PRN 12/02/17 [History] Lactobacillus Acidophilus [Acidophilus] 1 tab PO BID 12/02/17 [History] Docusate [Colace] 100 mg PO BID PRN capsule 12/21/17 [Rx] hydrALAZINE [HydrALAZINE] 50 mg PO Q8HR 02/13/18 [History] Amlodipine Besylate 7.5 mg PO DAILY 04/07/18 [History] Multivit-Min/FA/Lycopen/Lutein [A Thru Z Select Multivit Tab] 1 tab PO DAILY 04/07/18 [History] Acetaminophen [Tylenol] 650 mg PO Q6HR PRN tablet 04/14/18 [Rx] Ascorbic Acid [Vitamin C with Afshan Hips] 500 mg PO DAILY 05/06/18 [History] Bisacodyl [Dulcolax] 10 mg RC DAILY PRN 05/06/18 [History] Sertraline [Zoloft] 50 mg PO DAILY 05/06/18 [History] Tramadol HCl [Ultram] 50 mg PO Q12H PRN 4 Days #5 tablet 05/10/18 [Rx] LORazepam [Ativan] 0.5 mg PO DAILY 03/22/19 [History] MOM Conc [Milk of Magnesia Conc] 30 ml PO DAILY PRN 03/22/19 [History] Nystatin Cream [Mycostatin Cream] 1 applic TP BID 03/22/19 [History] Allergy/AdvReac Type Severity Reaction Status Date / Time aspirin AdvReac See Verified 02/01/19 19:43 Comments ROS unobtainable: due to mental status All Systems: The remainder of the systems were reviewed and are negative Physical Examination Vital Signs: Vital Signs, Last 4 Hours Resp BP Pulse Ox 03/22/19 16:02 21 156/93 100 General appearance: no acute distress, lethargic, other (Awakens with verbal stimuli but does not oriented to person place or time) Eyes: nonicteric ENT: oropharynx moist Neck: supple Effort: mildly labored Inspection: normal Auscultation: bilateral: clear Cardiovascular: regular rate and rhythm Gastrointestinal: soft, non-tender, non-distended Extremities: no cyanosis, edema (+1 pitting edema ) Musculoskeletal: other non-focal exam, pupils equal and round, motor strength normal and symmetric mood appropriate, affect normal Results - Laboratory Findings CBC and BMP: 03/22/19 10:11 03/22/19 10:11 ABG ABG pH 7.37 pH Units (7.32-7.45) 03/22/19 15:47 ABG pCO2 53 mmHg (35-45) H 03/22/19 15:47 ABG pO2 93 mmHg (85-104) 03/22/19 15:47 ABG O2 Saturation 97 % (95-98) 03/22/19 15:47 PT/INR, D-dimer PT 11.1 Seconds (9.4-12.1) 03/22/19 10:11 Abnormal lab findings: Abnormal lab results WBC 12.2 K/mcL (4.3-11.1) H 03/22/19 10:11 MPV 9.2 fL (9.4-12.4) L 03/22/19 10:11 10.4 K/mcL (1.6-8.9) H 03/22/19 10:11 ABG pH 7.28 pH Units (7.32-7.45) L 03/22/19 13:36 ABG pCO2 53 mmHg (35-45) H 03/22/19 15:47 ABG pO2 128 mmHg (85-104) H 03/22/19 13:36 ABG HCO3 31 mEq/L (21-27) H 03/22/19 15:47 ABG Total CO2 32 mEq/L (20-26) H 03/22/19 15:47 ABG Base Excess 4 mEq/L (-2 to 3) H 03/22/19 15:47 Potassium 3.3 mEq/L (3.5-5.1) L 03/22/19 10:11 Chloride 97 mEq/L (98-107) L 03/22/19 10:11 Carbon Dioxide 33 mEq/L (23-29) H 03/22/19 10:11 BUN 24 mg/dL (8-23) H 03/22/19 10:11 0.59 mg/dL (0.60-1.20) L 03/22/19 10:11 41 (6-26) H 03/22/19 10:11 Glucose 108 mg/dL (70-105) H 03/22/19 10:11 0.07 ng/mL (< 0.04) H* 03/22/19 10:11 6.3 g/dL (6.4-8.9) L 03/22/19 10:11 Turbid (Clear) A 03/22/19 14:30 >=300 mg/dL (Neg-Trace) H 03/22/19 14:30 15 mg/dL (Negative) H 03/22/19 14:30 Moderate (Negative) H 03/22/19 14:30 Positive (Negative) A 03/22/19 14:30 Ur Leukocyte Esterase Large (Negative) H 03/22/19 14:30 5-15 per hpf (0-3) H 03/22/19 14:30 TNTC per hpf (0-3) H 03/22/19 14:30 Ur Squamous Epith Cells Many per lpf (None-Few) H 03/22/19 14:30 Many per hpf (None-Few) H 03/22/19 14:30 Ur Culture Indicated? YES (NO) A 03/22/19 14:30 Salicylates < 2.5 mg/dL (15.0-30.0) L 03/22/19 10:11 Acetaminophen < 10 mcg/mL (10-20) L 03/22/19 10:11 - Microbiology Findings Microbiology Findings: Microbiology, Last 48 Hours 03/22/19 14:30 Urine Culture - Preliminary Urine,Catheterized (Straight) Culture is incubating. 03/22/19 10:11 Blood Culture - Preliminary Peripheral Venipuncture Culture is incubating and being continuously monitored for growth. Final report to follow. 03/22/19 10:24 Blood Culture - Preliminary Peripheral Venipuncture Culture is incubating and being continuously monitored for growth. Final report to follow. - Clinical Findings Intake & Output: Intake & Output 03/22/19 03/22/19 03/22/19 07:59 15:59 23:59 Intake Total 1000 / 1000 Balance 1000 / 1000 Weight 73.2 kg Consult Discharge Plan - Plan Referrals: NONE,PCP [Primary Care Provider] - <Audrey Goldstein - Last Filed: 03/22/19 20:40> Date of Encounter: 03/22/19 All Systems: The remainder of the systems were reviewed and are negative Physical Examination Vital Signs: Vital Signs, Last 4 Hours Temp Pulse Resp BP Pulse Ox 03/22/19 19:06 97.0 F L 85 11 147/85 98 Results - Laboratory Findings CBC and BMP: 03/22/19 10:11 03/22/19 10:11 ABG ABG pH 7.37 pH Units (7.32-7.45) 03/22/19 15:47 ABG pCO2 53 mmHg (35-45) H 03/22/19 15:47 ABG pO2 93 mmHg (85-104) 03/22/19 15:47 ABG O2 Saturation 97 % (95-98) 03/22/19 15:47 PT/INR, D-dimer PT 11.1 Seconds (9.4-12.1) 03/22/19 10:11 Abnormal lab findings: Abnormal lab results WBC 12.2 K/mcL (4.3-11.1) H 03/22/19 10:11 MPV 9.2 fL (9.4-12.4) L 03/22/19 10:11 10.4 K/mcL (1.6-8.9) H 03/22/19 10:11 ABG pH 7.28 pH Units (7.32-7.45) L 03/22/19 13:36 ABG pCO2 53 mmHg (35-45) H 03/22/19 15:47 ABG pO2 128 mmHg (85-104) H 03/22/19 13:36 ABG HCO3 31 mEq/L (21-27) H 03/22/19 15:47 ABG Total CO2 32 mEq/L (20-26) H 03/22/19 15:47 ABG Base Excess 4 mEq/L (-2 to 3) H 03/22/19 15:47 Potassium 3.3 mEq/L (3.5-5.1) L 03/22/19 10:11 Chloride 97 mEq/L (98-107) L 03/22/19 10:11 Carbon Dioxide 33 mEq/L (23-29) H 03/22/19 10:11 BUN 24 mg/dL (8-23) H 03/22/19 10:11 0.59 mg/dL (0.60-1.20) L 03/22/19 10:11 41 (6-26) H 03/22/19 10:11 Glucose 108 mg/dL (70-105) H 03/22/19 10:11 Magnesium 1.5 mg/dL (1.6-2.6) L 03/22/19 18:39 0.07 ng/mL (< 0.04) H* 03/22/19 18:39 6.3 g/dL (6.4-8.9) L 03/22/19 10:11 Turbid (Clear) A 03/22/19 14:30 >=300 mg/dL (Neg-Trace) H 03/22/19 14:30 15 mg/dL (Negative) H 03/22/19 14:30 Moderate (Negative) H 03/22/19 14:30 Positive (Negative) A 03/22/19 14:30 Ur Leukocyte Esterase Large (Negative) H 03/22/19 14:30 5-15 per hpf (0-3) H 03/22/19 14:30 TNTC per hpf (0-3) H 03/22/19 14:30 Ur Squamous Epith Cells Many per lpf (None-Few) H 03/22/19 14:30 Many per hpf (None-Few) H 03/22/19 14:30 Ur Culture Indicated? YES (NO) A 03/22/19 14:30 Salicylates < 2.5 mg/dL (15.0-30.0) L 03/22/19 10:11 Acetaminophen < 10 mcg/mL (10-20) L 03/22/19 10:11 - Microbiology Findings Microbiology Findings: Microbiology, Last 48 Hours 03/22/19 14:30 Urine Culture - Preliminary Urine,Catheterized (Straight) Culture is incubating. 03/22/19 10:11 Blood Culture - Preliminary Peripheral Venipuncture Culture is incubating and being continuously mon itored for growth. Final report to follow. 03/22/19 10:24 Blood Culture - Preliminary Peripheral Venipuncture Culture is incubating and being continuously monitored for growth. Final report to follow. - Clinical Findings Intake & Output: Intake & Output 03/22/19 03/22/19 03/22/19 07:59 15:59 23:59 Intake Total 1000 / 1000 Balance 1000 / 1000 Weight 73.2 kg 66.9 kg - Attending Attestation I saw and evaluated this patient and my medical decision-making was reviewed with the Resident Physician. I agree with the documented findings, disposition and treatment plan as described except to the extent set forth below. We independently had [id number] contact with the patient Patient seen and examined at bedside Labs, radiology, chart personally reviewed. Management was reviewed during multidisciplinary critical care rounds. RESCUE WORKER: Patient has altered mental status most likely due to septic encephalopathy secondary to UTI and right-sided pneumonia complicated by worsening hypercarbia Pulm: Patient developed a acute on chronic hypoxic hypercarbic respiratory otilio lure looks like patient was not evaluated For any lung disease. The CT chest today shows small airway disease with some emphysematous changes with extensive right lower lobe consolidation patient has chronic bicarbonate elevation most likely due to hypoventilation contributed by undiagnosed COPD versus restrictive ventilatory impairment due to kyphoscoliosis now with the right lower lobe consolidation and decompensated the ventilatory status. Patient is responding well to BiPAP therapy will not intubate unless she has severe metabolic decompensation. Patient will have poor prognosis if she gets intubated and mechanically ventilated. Please continue with noninvasive ventilator therapy with broad-spectrum antibiotics Cards: Patient is hemodynamically stable no evidence of septic shock. FEN-GI: Nothing by mouth Renal: Labs and output reviewed ID: Patient has UTI and pneumonia to continue with broad-spectrum antibiotics Heme/Onc: Labs reviewed Endo: Glucose Monitored Integ/MSK: Skin Care per routine ICU Nursing Protocol to prevent ulcers. Lines: All lines examined without evidence of infection : Dispo: since patient improved with BiPAP therapy can be transferred to [place] CODE: Full Code
--- NOTE | 2019-03-22 18:18 | Internal Med History&Physical ---
<Luda Hussein - Last Filed: 03/22/19 19:35> Date of Encounter: 03/22/19 Internal Medicine - H&P: HPI History of present illness: Ms. Rolle is a 83 year old female Internal Medicine - H&P: Meds Pantoprazole Sodium [Protonix] 40 mg PO DAILY 10/12/16 [History] Aspirin 81 mg PO DAILY 12/01/16 [History] Losartan Potassium [Cozaar] 50 mg PO BID #60 tab 12/03/16 [Rx] Metoprolol [Lopressor] 25 mg PO BID 11/04/17 [History] Benzonatate 100 mg PO DAILY PRN 12/02/17 [History] Guaifenesin [Mucinex] 600 mg PO BID PRN 12/02/17 [History] Lactobacillus Acidophilus [Acidophilus] 1 tab PO BID 12/02/17 [History] Docusate [Colace] 100 mg PO BID PRN capsule 12/21/17 [Rx] hydrALAZINE [HydrALAZINE] 50 mg PO Q8HR 02/13/18 [History] Amlodipine Besylate 7.5 mg PO DAILY 04/07/18 [History] Multivit-Min/FA/Lycopen/Lutein [A Thru Z Select Multivit Tab] 1 tab PO DAILY 04/07/18 [History] Acetaminophen [Tylenol] 650 mg PO Q6HR PRN tablet 04/14/18 [Rx] Ascorbic Acid [Vitamin C with Afshan Hips] 500 mg PO DAILY 05/06/18 [History] Bisacodyl [Dulcolax] 10 mg RC DAILY PRN 05/06/18 [History] Sertraline [Zoloft] 50 mg PO DAILY 05/06/18 [History] Tramadol HCl [Ultram] 50 mg PO Q12H PRN 4 Days #5 tablet 05/10/18 [Rx] LORazepam [Ativan] 0.5 mg PO DAILY 03/22/19 [History] MOM Conc [Milk of Magnesia Conc] 30 ml PO DAILY PRN 03/22/19 [History] Nystatin Cream [Mycostatin Cream] 1 applic TP BID 03/22/19 [History] Allergy/AdvReac Type Severity Reaction Status Date / Time aspirin AdvReac See Verified 02/01/19 19:43 Comments All Systems PM: A 10-system review of systems was performed and is negative for pertinent findings except as documented above in the HPI. - Constitutional Vitals: Temp Pulse Resp BP Pulse Ox 97.0 F L 85 11 147/85 98 03/22/19 19:06 03/22/19 19:06 03/22/19 19:06 03/22/19 19:06 03/22/19 19:06 Internal Med - H&P Results - Labs CBC & Chem 7: 03/22/19 10:11 03/22/19 10:11 Labs: Short CBC 03/22/19 Range/Units 10:11 WBC 12.2 H (4.3-11.1) K/mcL Hgb 13.1 (11.5-15.4) g/dL Hct 40.7 (35.3-44.9) % Plt Count 299 (140-400) K/mcL Neutrophils # 10.4 H (1.6-8.9) K/mcL BMP 03/22/19 10:11 Sodium 138 Potassium 3.3 L Chloride 97 L Carbon Dioxide 33 H BUN 24 H Creatinine 0.59 L Glucose 108 H Calcium 9.7 Cardiac Enzymes 03/22/19 03/22/19 Range/Units 10:11 18:39 Troponin I 0.07 H* 0.07 H* (< 0.04) ng/mL Liver Function 03/22/19 Range/Units 10:11 Total Bilirubin 0.4 (0.3-1.0) mg/dL AST 21 (13-39) Units/L ALT 14 (7-52) Units/L Alkaline Phosphatase 55 (34-104) Units/L Albumin 3.7 (3.5-5.7) g/dL Urine 03/22/19 Range/Units 14:30 Urine Color Yellow (Yellow) Urine Clarity Turbid A (Clear) Urine pH 6.0 (5.0-8.0) pH Units Ur Specific [place] 1.020 (1.010-1.025) Urine Protein >=300 H (Neg-Trace) mg/dL Urine Glucose (UA) Normal (Normal) mg/dL - ABG Interpretation ABG results: 03/22/19 03/22/19 13:36 15:47 ABG pH 7.28 L 7.37 ABG pCO2 71 H* 53 H ABG pO2 128 H 93 ABG HCO3 33 H 31 H ABG Total CO2 35 H 32 H ABG O2 Saturation 98 97 ABG Base Excess 5 H 4 H - Impressions ITS Impressions Chest X-Ray 03/22/19 09:59 IMPRESSION: Minimal bibasilar atelectasis right worse than left. D/ / 03/22/2019 11:09:28 Roderick Chery MD / Zena Fleming Interpreting Provider: Roderick Chery MD Head CT 03/22/19 09:59 IMPRESSION: 1. No definite acute intracranial abnormality. 2. Suspected new tiny chronic appearing focus of encephalomalacia in the anterior base of the right frontal lobe. Unchanged encephalomalacia in the bilateral temporal lobes. 3. Age-appropriate mild diffuse atrophy with moderate to severe chronic small vessel ischemic changes. D/ / Jerardo Burger MD / Jerardo Burger MD Interpreting Provider: Jerardo Burger MD Chest CTA 03/22/19 17:21 IMPRESSION: 1. No evidence for acute pulmonary embolism. 2. Mild enlargement of pulmonary trunk can be seen in pulmonary hypertension or may be normal for patient. 3. Small right pleural effusion with right lower lobe basal consolidation probably combination of pneumonia and atelectasis. There is subsegmental atelectasis posterior left lung base. 4. Fairly stable right adrenal myelolipoma 4.2 x 3.4 cm. D/ / Nick Polo MD / Nick Polo MD Interpreting Provider: Nick Polo MD - Time Spent With Patient Total time spent is greater than 50% in coordination of care (as documented) at patient's floor/unit and/or counseling patient: - Attending Attestation I examined this patient and my medical decision-making was reviewed with the Res ident Physician Dr Farooq. I agree with the documented findings, disposition and treatment plan as described except to the extent set forth below. Ms Rolle is being admitted for acute resp failure, sepsis with pna and suspected UTI pmhx, surg hx, family hx reviewed with family in presence of resident. she is a full code status she opens eyes to name and follows commands but does not speak. is on bipap mask. Her sons at bedside provide all information. They note a few days of progressive wekaness and not acting like herself. suspected she had another uti. had one in january and were concerned never resolved. has chronic higgins. to their knowledge she has had no cough, c/o cp, sob, abd pain or diarrhea. note she has chronic heart murmur. they note her mentation has greatly improved as she wasn't arousing to sternal rub earlier. They deny a CAD hx and she has never had chf, SD or stents. gen- asleep, opens eyes to name,appears stated age eyes- pupils equal round , no conjunctival pallor cv- reg rate and rhythm, normal s1,s2, + SM III/, radial pulses intact and equal, warm ext lungs- ctabl, no wheezing ant/lat hall, cannot eval posteriorly at this time, normal resp effort on bipap abd- soft, non tender, non distended, + bs skin- warm dry no pallor neuro- on bipap asleep, oepns eyes to name, follows command to test tilt tray driver strength 5/5 bl, and to wiggle toes and nicole. cn appear grossly intact though cannot be fully tested due to bipap and continued somnolence, can move all ext on command Acute hypoxic and hypercapneic resp failure suspect 2/2 pna, organism uk RLL -cont bipap overnight, repeat vbg in am -pulm following -nebs, azithro + rocephin and zosyn added in case aspiration given location, attempt to ID organism -is full code + intubation -CTA ruled out PE, + small r effusion Acute encephalopathy multifactorial - infectious and metabolic 2/2 hypoxia and hypercapnea -improving with bipap, infectious treatment as noted Sepsis with wbc elevation, tachycardia, tachypnea and suspected source pna + uti -s/p bolused fluids, hold futher IVFs at this time given effusion on CT and resp distress cannot risk compromising resp status when she has stable BP and HR at this time, further fluids as clincial picture dictates pna tx as above suspected uti- cx pending- rocephin based off prior cxs -bl cx pending Elevated trop 0.07 [address]KG with new ST depression in I and avL when comapred to priors, suspect demand ischemia as family adamant she does NOT have aCAD hx suspect 2/2 sepsis + hypoxia, rule out ACS - trend, tele, serial ekgs, check echo Possible acute on chronic diastolic chf given effusion on CT though may be related to pna- hold diuresis at this time as required IVF for sepsis- echo pending further diagnoses and plan as noted by resident <Marva Farooq - Last Filed: 03/22/19 20:00> Date of Encounter: 03/22/19 Time of Encounter: 18:00 Internal Medicine - H&P: HPI Chief complaint: Unresponsiveness Admitted From: [facility] Plans for Post Hospital Care: Transfer [facility] History of present illness: Ms. Rolle is a 83 year old female presenting with unresponsiveness as well as r espiratory failure. She has a past medical history of hypertension, diastolic CHF, aortic stenosis, possible coronary artery disease (family denies this history), GERD, anxiety, depression. Patient has presented to emergency department from [facility] via EMS. At baseline she is alert, oriented and able to hold a conversation, she is not ambulatory. She has had a chronic Higgins for the past year. She does not have a baseline oxygen requirement. Per the family since admission in January for UTI, the patient has had increased weakness and fatigability. The son had visited her on Thursday and states that she had some hallucinations, seeing things in the air that were not there and being concerned about people behind her. Today she had increased confusion which progressed to decreased responsiveness at the nursing facility, not waking up, not speaking. She was found to have acute respiratory failure with hypoxia and hypercarbia, her oxygen saturation initially at 83%. Labs were significant for leukocytosis at 12.2, initial ABG significant for pH 7.28, PCO2 71, PaO2 128, P HCO3 33. Patient placed on BiPAP and had subsequent been improvement on ABG. Patient had elevated troponin at 0.07, troponins to be trended. Hypokalemia at 3.3, BUN 24, creatinine 0.59, BUN creatinine ratio of 41. UA was significant for proteinuria, ketones, blood, nitrates, leukocyte esterase, RBC, WBC, squamous epithelial cells, and bacteria, culture pending. Blood cultures were drawn and are pending. Chest x-ray was performed which is suboptimal, revealing bibasilar atelectasis. Head CT was performed which was negative for an acute intracranial abnormality, suspected new chronic appearing focus of encephalomalacia and mild diffuse atrophy with moderate to severe chronic small vessel ischemic changes. EKG significant for normal sinus rhythm, heart rate 82, left ventricular hypertrophy, ST depression in leads 1 and aVL which is new from previous as well as flat T waves in V4 through V6. Patient was given 2 L normal saline as well as ceftriaxone for UTI. Patient awake and alert, able to follow commands and is saturating well on BiPAP. She is unable to give review of systems secondary to BiPAP and mental status. Past Med Surg Social Fam HX - Past Medical History Medical history: coronary artery disease, GERD, hypertension, renal disease, seizures Additional medical history: falls Psychiatric history: anxiety, depression - Past Surgical History Surgical History: appendectomy, hip replacement (left hip fracture/repair), other (hemorrhoidectomy) Additional surgical history: left hip replacement - Social History Smoking Status: Never smoker Smokeless Tobacco Status: No Alcohol use: none Drug use: none - Family History Mother Family Member Ethnicity: Non- Living Status: Hx Family Cancer: Yes (Breast cancer) Father Family Member Ethnicity: Non- Living Status: Hx Family Cardiac Disorders: Yes (CVA) Hx Family Neuromuscular Disorders: Yes (CVA) Brother Adopted: No Family Member Ethnicity: Non- Living Status: Still Living Hx Family Cardiac Disorders: Yes Hx Family Respiratory Disorders: No Hx Family Cancer: Yes Hx Family GI Disorders: No Hx Family Endocrine Disorder: No Hx Family Neuromuscular Disorders: No Hx Family Neurologic Disorders: No Hx Family HEENT Disorders: No Hx Family Autoimmune Disorders: No Sister Adopted: No Family Member Ethnicity: Non- Living Status: Still Living Hx Family Cardiac Disorders: Yes Hx Family Respiratory Disorders: No Hx Family Cancer: Yes Hx Family GI Disorders: No Hx Family Endocrine Disorder: No Hx Family Neuromuscular Disorders: No Hx Family Neurologic Disorders: No Hx Family HEENT Disorders: No Hx Family Autoimmune Disorders: No ROS unobtainable: due to mental status All Systems PM: A 10-system review of systems was performed and is negative for pertinent findings except as documented above in the HPI. - Constitutional Vitals: Temp Pulse Resp BP Pulse Ox 98.3 F 66 21 156/93 100 03/22/19 09:57 03/22/19 13:14 03/22/19 16:02 03/22/19 16:02 03/22/19 16:02 Exam: Gen: Vitals noted. Alert, oriented 0. Able to follow commands, currently on BiPAP. HEENT: PERRL/EOMI, Normocephalic, atraumatic Cardiac: RRR, systolic murmur, +S1/S2, radial and dorsal pedis pulses 2+ and symmetrical Pulmonary: Coarse breath sounds bilaterally, equal chest expansion Abdomen: soft, nondistended, nontender, BS noted, no guarding, no rebound. MSK: Foot drop on the left, able to wiggle toes, unable to fully evaluate range of motion, no joint swelling noted, left foot in plantar flexion with inversion Extremities: 1+ pitting edema bilaterally, no calf tenderness, no cyanosis or clubbing, bilateral upper extremity dry flaky skin, some bruising noted Neuro: A&Ox0, able to squeeze hands, wiggle toes, unable to fully assess Psych: Unable to assess Internal Med - H&P Results - Labs CBC & Chem 7: 03/22/19 10:11 03/22/19 10:11 Labs: Short CBC 03/22/19 Range/Units 10:11 WBC 12.2 H (4.3-11.1) K/mcL Hgb 13.1 (11.5-15.4) g/dL Hct 40.7 (35.3-44.9) % Plt Count 299 (140-400) K/mcL Neutrophils # 10.4 H (1.6-8.9) K/mcL BMP 03/22/19 10:11 Sodium 138 Potassium 3.3 L Chloride 97 L Carbon Dioxide 33 H BUN 24 H Creatinine 0.59 L Glucose 108 H Calcium 9.7 Cardiac Enzymes 03/22/19 Range/Units 10:11 Troponin I 0.07 H* (< 0.04) ng/mL Liver Function 03/22/19 Range/Units 10:11 Total Bilirubin 0.4 (0.3-1.0) mg/dL AST 21 (13-39) Units/L ALT 14 (7-52) Units/L Alkaline Phosphatase 55 (34-104) Units/L Albumin 3.7 (3.5-5.7) g/dL Urine 03/22/19 Range/Units 14:30 Urine Color Yellow (Yellow) Urine Clarity Turbid A (Clear) Urine pH 6.0 (5.0-8.0) pH Units Ur Specific [place] 1.020 (1.010-1.025) Urine Protein >=300 H (Neg-Trace) mg/dL Urine Glucose (UA) Normal (Normal) mg/dL - ABG Interpretation ABG results: 03/22/19 03/22/19 13:36 15:47 ABG pH 7.28 L 7.37 ABG pCO2 71 H* 53 H ABG pO2 128 H 93 ABG HCO3 33 H 31 H ABG Total CO2 35 H 32 H ABG O2 Saturation 98 97 ABG Base Excess 5 H 4 H - Impressions ITS Impressions Chest X-Ray 03/22/19 09:59 IMPRESSION: Minimal bibasilar atelectasis right worse than left. D/ / 03/22/2019 11:09:28 Roderick Chery MD / Zena Fleming Interpreting Provider: Roderick Chery MD Head CT 03/22/19 09:59 IMPRESSION: 1. No definite acute intracranial abnormality. 2. Suspected new tiny chronic appearing focus of encephalomalacia in the anterior base of the right frontal lobe. Unchanged encephalomalacia in the bilateral temporal lobes. 3. Age-appropriate mild diffuse atrophy with moderate to severe chronic small vessel ischemic changes. D/ / Jerardo Burger MD / Jerardo Burger MD Interpreting Provider: Jerardo Burger MD - Assessment and Plan (1) Acute respiratory failure with hypoxia and hypercapnia Current Visit: Yes Status: Acute Assessment and plan: Presents with decreased responsiveness, altered mental status, acute respiratory failure with hypoxia and hypercapnia Reported oxygen saturation decreased down to the 80s Currently saturating at 100% on BiPAP, ABG improved after BiPAP Etiology unknown. Patient found to have sepsis and UTI. History of diastolic CHF, may be secondary to fluid overload however per the family patient has been having decreased by mouth intake. Possible pneumonia, possible PE workup remains pending. EKG was sinus rhythm, heart rate 82, left ventricular hypertrophy, normal intervals, normal axis, ST depression in leads 1, aVL as well as flattening of T waves in V4 through V6 which are new from previous. Chest x-ray was suboptimal, revealed minimal bibasilar atelectasis Further workup for cardiac cause with echocardiogram, trending troponins CTA chest to evaluate for PE versus pneumonia pending Leukocytosis at 12.2 Troponin elevation at 0.07 Continuous cardiac and pulse oximetry monitoring Continue BiPAP update- CTA resulted, negative for PE, mild enlargement of pulmmonary trunk, s mall right pleural effusion with right lower lobe basal consolidation. Stable right adrenal myelolipoma. For pneumonia, patient will be started on zosyn and azithromycin. (2) Sepsis Current Visit: Yes Status: Acute Assessment and plan: SIRS criteria-leukocytosis at 12.2, tachycardia, heart rate 97, tachypnea at 28, afebrile Suspect secondary to urinary tract infection Prior urine cultures positive for Proteus, Klebsiella Patient status post 2 L normal saline Lactate within normal limits at 0.9 Blood cultures as well as urine cultures pending Continue antibiotic coverage with Rocephin for UTI Qualifiers: Sepsis type: sepsis due to unspecified organism Qualified Code(s): A41.9 - Sepsis, unspecified organism (3) Pneumonia Current Visit: Yes Status: Acute Assessment and plan: Contributing to acute respiratory failure CTA chest positive for right lower lobe basal consolidation leukocytosis at 12.2 Will start zosyn and azithromycin for broad coverage Sputum culture pending. Strept pneumonia and legionella antigens pending Qualifiers: Pneumonia type: due to unspecified organism Laterality: right Lung location: lower lobe of lung Qualified Code(s): J18.1 - Lobar pneumonia, unspecified organism (4) UTI (urinary tract infection) Current Visit: Yes Status: Acute Assessment and plan: Patient found to have urinary tract infection UA positive for proteinuria, ketones, blood, nitrate, leukocyte esterase, RBC, WBC, squamous epithelial cells, bacteria Urine culture pending Prior urine culture positive for Proteus, Klebsiella with sensitivity to Rocephin Continue Rocephin Qualifiers: Urinary tract infection type: acute cystitis Hematuria presence: without hematuria Qualified Code(s): N30.00 - Acute cystitis without hematuria (5) Altered mental status Current Visit: Yes Status: Acute Assessment and plan: Patient presents with altered mental status, confusion At baseline able to have conversation, is alert and oriented 3 Suspect secondary to acute respiratory failure with hypoxia and hypercapnia, sepsis Management as above Qualifiers: Altered mental status type: somnolence Qualified Code(s): R40.0 - Somnolence (6) Elevated troponin Current Visit: Yes Status: Acute Assessment and plan: Patient found to have elevated troponin at 0.07 Per inpatient chart, patient has a history of coronary artery disease which family denies, review of outpatient chart does not show history of coronary artery disease EKG significant for normal sinus rhythm, heart rate 82, ST depression in 1 and a VL which was new from previous as well as flattening of the T waves in V4 through V6 Continue to trend troponins Echocardiogram pending Repeat EKG in am (7) Abnormal EKG Current Visit: Yes Status: Acute Assessment and plan: Management as above Continuous cardiac monitoring Continue to trend troponins Echo pending (8) Heart failure with preserved ejection fraction Current Visit: Yes Status: Chronic Assessment and plan: Patient has a history of diastolic heart failure Qualifiers: Heart failure chronicity: unspecified Qualified Code(s): I50.30 - Uns pecified diastolic (congestive) heart failure (9) HTN (hypertension) Current Visit: Yes Status: Chronic Assessment and plan: Patient has a history of hypertension Patient is on BiPAP will do IV hydralazine when necessary for systolic blood pressure greater than 160 Qualifiers: Hypertension type: unspecified Qualified Code(s): I10 - Essential (primary) hypertension (10) Hypokalemia Current Visit: Yes Status: Acute Assessment and plan: Patient found to have hypokalemia Potassium 3.3 Repleted with potassium chloride Continue to monitor (11) DVT prophylaxis Current Visit: Yes Status: Acute Assessment and plan: SQ heparin - Time Spent With Patient Total time spent is greater than 50% in coordination of care (as documented) at patient's floor/unit and/or counseling patient:
[2019-03-22] MEDS ORDERED: Ipratropium/Albuterol Neb 3 ML IH PRN (18:40)
[2019-03-22 19:14] LABS: Magnesium 1.5 mg/dL (1.6-2.6); Troponin I 0.07 ng/mL (< 0.04)
[2019-03-22] MEDS ORDERED: Azithromycin 500 MG in D5% in Water 250 ML IVPB SCH (20:00)
[2019-03-22] MEDS ORDERED: Ipratropium/Albuterol Neb 3 ML IH SCH (20:00)
[2019-03-22] MEDS: *HR* Heparin 5,000 UNIT/ML VIAL SQ SCH (21:18)
[2019-03-23] MEDS: Piperacillin/Tazobactam 3.375 GM in 0.9 % Sodium Chloride Mini Bag 100 ML IVPB SCH ×3 (00:07→18:56)
[2019-03-23] MEDS: *HR* Heparin 5,000 UNIT/ML VIAL SQ SCH ×2 (05:21→17:02)
[2019-03-23] MEDS: Doxycycline 100 MG in 0.9 % Sodium Chloride Mini Bag 100 ML IVPB SCH ×2 (05:21→17:02)
[2019-03-23 08:31] LABS: Basophils % 0.2 %; Eosinophils % 0.3 %; Hematocrit 37.2 % (35.3-44.9); Immature Granulocytes % 0.6 % (0-4); Lymphocytes # 1.5 K/mcL (0.6-4.6); Lymphocytes % 10.8 %; Mean Corpuscular HGB Conc 32.3 g/dL (31.6-35.5); Mean Corpuscular Hemoglobin 31.6 pg (28.0-33.3); Mean Corpuscular Volume 97.9 fL (83.0-100.0); Mean Platelet Volume 9.2 fL (9.4-12.4); Monocytes # 0.8 K/mcL (0.0-1.3); Monocytes % 5.6 %; Neutrophils # 11.3 K/mcL (1.6-8.9); Platelet Count 232 K/mcL (140-400); Segmented Neutrophils % 82.5 %
[2019-03-23 08:40] LABS: VBG HCO3 27 mEq/L (21-27); VBG PCO2 49 mmHg (41-51); VBG PH 7.35 pH Units (7.32-7.42); VBG PO2 190 mmHg (25-50)
[2019-03-23 08:50] LABS: BUN/Creatinine Ratio 44 (6-26); Blood Urea Nitrogen 23 mg/dL (8-23); Calcium 9.5 mg/dL (8.6-10.3); Carbon Dioxide 26 mEq/L (23-29); Chloride 102 mEq/L (98-107); Glucose 79 mg/dL (70-105); Osmolality,Calculated 291 (280-300); Potassium 3.5 mEq/L (3.5-5.1); Sodium 139 mEq/L (136-145); eGFR For Non-African Americans > 60 (> 60)
[2019-03-23] MEDS ORDERED: cefTRIAXone 1,000 MG in Water for inj. (sterile) 20 ML 10 ML IVP SCH (09:00)
[2019-03-23 11:37] LABS: Acinetobacter baumannii by PCR Not Detected (Not Detect); Candida albicans by PCR Not Detected (Not Detect); Candida glabrata by PCR Not Detected (Not Detect); Candida krusei by PCR Not Detected (Not Detect); Candida parapsilosis by PCR Not Detected (Not Detect); Candida tropicalis by PCR Not Detected (Not Detect); Enterobacter cloacae Cmplx PCR Not Detected (Not Detect); Enterobacteriaceae by PCR Not Detected (Not Detect); Enterococcus by PCR Not Detected (Not Detect); Escherichia coli by PCR Not Detected (Not Detect); Klebsiella oxytoca by PCR Not Detected (Not Detect); Klebsiella pneumoniae by PCR Not Detected (Not Detect); Proteus by PCR Not Detected (Not Detect); Pseudomonas aeruginosa by PCR Not Detected (Not Detect); Serratia marcescens by PCR Not Detected (Not Detect); Staphylococcus aureus by PCR Not Detected (Not Detect); Staphylococcus by PCR DETECTED (Not Detect); Streptococcus agalactiae(B)PCR Not Detected (Not Detect); Streptococcus by PCR Not Detected (Not Detect); Streptococcus pneumoniae PCR Not Detected (Not Detect); Streptococcus pyogenes (A) PCR Not Detected (Not Detect); mecA Methicillin-Resist Gene DETECTED (Not Detect)
--- NOTE | 2019-03-23 12:28 | Pulmonology Progress Note ---
Date of Encounter: 03/23/19 Time of Encounter: 08:00 Assessment and Plan (1) Acute respiratory failure with hypoxia and hypercapnia Current Visit: Yes Status: Acute Complicated by MRSA pneumonia, and diagnosed COPD diastolic heart failure. To continue BiPAP if she is more awake transitioned to nasal cannula. (2) Heart failure with preserved ejection fraction Current Visit: Yes Status: Chronic Hold off diuresis patient recently recovered from her sepsis Qualifiers: Heart failure chronicity: unspecified Qualified Code(s): I50.30 - Unspecified diastolic (congestive) heart failure (3) Pneumonia Current Visit: Yes Status: Acute Patient has right lower lobe pneumonia and MRSA growing in the blood most likely MRSA pneumonia started on and vancomycin will repeat blood cultures make sure it is getting cleared up Qualifiers: Pneumonia type: due to unspecified organism Laterality: right Lung location: lower lobe of lung Qualified Code(s): J18.1 - Lobar pneumonia, unspecified organism (4) Suspected chronic obstructive pulmonary disease based on initial evaluation Current Visit: Yes Status: Acute CT chest shows EMPHYSEMATOUS and small airway disease changes patient has some undiagnosed COPD now complicated by pneumonia. To continue bronchodilators with V/Q mismatch is not getting better we will recommend adding steroids. Subjective Principal diagnosis: Acute hypoxic hypercapnic respiratory failure complicated by MRSA pneumonia Interval history: Patient presented with acute metabolic encephalopathy complicated by acute hypoxic hypercapnic respiratory failure with a MRSA pneumonia with bacteremia and also complicated UTI. Objective PUL Vital signs: Last Vital Signs Temp 98.9 F 03/23/19 11:23 Pulse 80 03/23/19 11:23 Resp 21 03/23/19 11:23 BP 170/90 03/23/19 11:23 Pulse Ox 99 03/23/19 11:23 General appearance: lethargic Eyes: nonicteric ENT: oropharynx moist Auscultation: right: diminished breath sounds, bilateral: wheezes (Scattered wheezes) Cardiovascular: regular rate and rhythm Gastrointestinal: normoactive bowel sounds Extremities: no edema unable to assess due to mental status other (Lethargic) Results - Laboratory Findings CBC and BMP: 03/23/19 08:01 03/23/19 08:01 ABG ABG pH 7.37 pH Units (7.32-7.45) 03/22/19 15:47 ABG pCO2 53 mmHg (35-45) H 03/22/19 15:47 ABG pO2 93 mmHg (85-104) 03/22/19 15:47 ABG O2 Saturation 97 % (95-98) 03/22/19 15:47 PT/INR, D-dimer PT 11.1 Seconds (9.4-12.1) 03/22/19 10:11 Abnormal lab findings: Abnormal lab results WBC 13.7 K/mcL (4.3-11.1) H 03/23/19 08:01 RBC 3.80 M/mcL (3.82-4.97) L 03/23/19 08:01 MPV 9.2 fL (9.4-12.4) L 03/23/19 08:01 11.3 K/mcL (1.6-8.9) H 03/23/19 08:01 ABG pH 7.28 pH Units (7.32-7.45) L 03/22/19 13:36 ABG pCO2 53 mmHg (35-45) H 03/22/19 15:47 ABG pO2 128 mmHg (85-104) H 03/22/19 13:36 ABG HCO3 31 mEq/L (21-27) H 03/22/19 15:47 ABG Total CO2 32 mEq/L (20-26) H 03/22/19 15:47 ABG Base Excess 4 mEq/L (-2 to 3) H 03/22/19 15:47 VBG pO2 190 mmHg (25-50) H 03/23/19 08:34 Potassium 3.3 mEq/L (3.5-5.1) L 03/22/19 10:11 Chloride 97 mEq/L (98-107) L 03/22/19 10:11 Carbon Dioxide 33 mEq/L (23-29) H 03/22/19 10:11 BUN 24 mg/dL (8-23) H 03/22/19 10:11 0.52 mg/dL (0.60-1.20) L 03/23/19 08:01 44 (6-26) H 03/23/19 08:01 Glucose 108 mg/dL (70-105) H 03/22/19 10:11 Magnesium 1.5 mg/dL (1.6-2.6) L 03/22/19 18:39 0.07 ng/mL (< 0.04) H* 03/23/19 08:01 6.3 g/dL (6.4-8.9) L 03/22/19 10:11 Turbid (Clear) A 03/22/19 14:30 >=300 mg/dL (Neg-Trace) H 03/22/19 14:30 15 mg/dL (Negative) H 03/22/19 14:30 Moderate (Negative) H 03/22/19 14:30 Positive (Negative) A 03/22/19 14:30 Ur Leukocyte Esterase Large (Negative) H 03/22/19 14:30 5-15 per hpf (0-3) H 03/22/19 14:30 TNTC per hpf (0-3) H 03/22/19 14:30 Ur Squamous Epith Cells Many per lpf (None-Few) H 03/22/19 14:30 Many per hpf (None-Few) H 03/22/19 14:30 Ur Culture Indicated? YES (NO) A 03/22/19 14:30 Salicylates < 2.5 mg/dL (15.0-30.0) L 03/22/19 10:11 Acetaminophen < 10 mcg/mL (10-20) L 03/22/19 10:11 Staphylococcus sp PCR DETECTED (Not Detect) A 03/22/19 10:11 mecA-Methicil Res Gene DETECTED (Not Detect) A 03/22/19 10:11 - Microbiology Findings Microbiology Findings: Microbiology, Last 48 Hours 03/22/19 10:11 Blood Culture - Preliminary Peripheral Venipuncture Gram Positive Cocci 03/22/19 14:30 Urine Culture - Preliminary Urine,Catheterized (Straight) Culture is incubating. 03/22/19 10:24 Blood Culture - Preliminary Peripheral Venipuncture Culture is incubating and being continuously monitored for growth. Final report to follow. - Clinical Findings Intake & Output: Intake & Output 03/22/19 03/23/19 03/23/19 23:59 07:59 15:59 Intake Total 1000 / 1000 622 / 622 0 / 622 Output Total 250 / 350 100 / 350 Balance 1000 / 1000 372 / 272 -100 / 272 Weight 66.9 kg 66.9 kg Consult Discharge Plan - Plan Referrals: NONE,PCP [Primary Care Provider] - Megan Castro DO [Partnered Physician] - (Patient is from [facility] no PCP appointment needed)
--- NOTE | 2019-03-23 17:27 | Internal Med Progress Note ---
<Toi Griffin - Last Filed: 03/23/19 19:02> Hospitalist Progress Note - Encounter Date of Encounter: 03/23/19 Time of Encounter: 09:55 - Subjective Interval History: Patient seen and examined at bedside; currently on BiPAP. Patient is alert and oriented 0; appears drowsy and lethargic. Will briefly open eyes to stimulation, but does not follow commands. Pulmonology is following. Patient's respiratory status appears to have improved after being placed on BiPAP. No prior diagnosis of COPD. family at bedside states that she is normally alert and oriented at baseline, but has been increasingly confused over the past few m onths after she was treated for a UTI. Patient does not appear to be in any acute distress at this time. Currently receiving broad-spectrum antibiotics for pneumonia, UTI, and possible bacteremia. Vital signs have improved since arrival. - Exam Vitals: Temp Pulse Resp BP Pulse Ox 99.1 F 95 24 151/100 100 03/23/19 16:35 03/23/19 16:35 03/23/19 16:35 03/23/19 16:35 03/23/19 16:35 Exam: General: A&O x0, lethargic, on BiPAP Head: atraumatic, normocephalic Eye: Unable to assess; patient only opens eyes for a few seconds Neck: No obvious deformities present Respiratory: Diminished breath sounds bilaterally; shortened expiratory phase, mild expiratory wheezes, no rales or rhonchi Cardiovascular: RRR, +S1, +S2; no murmurs, rubs, gallops Abdomen: Soft, normoactive bowel sounds Extremities: Trace pitting edema present bilaterally in the lower extremities Neurological: Unable to assess Psychiatric: Unable to assess Skin: Dry, intact - Assessment and Plan (1) Acute respiratory failure with hypoxia and hypercapnia Current Visit: Yes Status: Acute Assessment and Plan: - Patient initially presented with hypoxic respiratory failure; O2 saturation decreased to the 80s - Also had altered mental status with fatigue and decreased responsiveness - Arterial blood gas demonstrated the following: PH 7.37, PCO2 53, PO2 93, HCO3 31, total CO2 32 - On arrival, patient was placed on BiPAP and subsequently improved - CXR: Minimal basilar atelectasis right worse than left - CTA of chest: Small right pleural effusion with right lower lobe basal elevation, possibly combination of pneumonia and atelectasis - Patient has no previous diagnosis of COPD; according to her family, patient never was a smoker, but was exposed to secondhand smoke from her for many years Plan: - Pulmonology is following, would appreciate any further recommendations - Continue DuoNebs and BiPAP support as needed - Continue antibiotics for pneumonia as documented below (2) Sepsis Current Visit: Yes Status: Acute Assessment and Plan: - Presented with tachycardia, leukocytosis, tachypnea - Patients vital signs have stabilized since admission - Multiple potential infection sources; UTI, pneumonia; preliminary blood culture positive for gram-positive cocci - Serology: Positive for Staphylococcus species and mecA methicillin-resistant gene Plan: - Continue vancomycin, Zosyn, and doxycycline - Will tailor antibiotic therapy based on final culture results - Repeat a.m. labs (3) Pneumonia Current Visit: Yes Status: Acute Assessment and Plan: - Presented with acute hypoxic respiratory failure; likely precipitating factor - CXR: Minimal basilar atelectasis right worse than left - CTA of chest: Small right pleural effusion with right lower lobe basal elevation, possibly combination of pneumonia and atelectasis - Strep and Legionella urine antigens are pending - Sputum culture pending - Patient is currently on vancomycin, Zosyn, doxycycline - Will tailor antibiotic therapy based on culture results (4) UTI (urinary tract infection) Current Visit: Yes Status: Acute Assessment and Plan: - Urinalysis demonstrated the presence of leukocyte esterase, WBCs, bacteria - Previous urine culture was positive for Proteus and Klebsiella - She was initially started on Rocephin; discontinued after patient was started on Zosyn for pneumonia - Preliminary urine cultures positive for gram-negative myles Plan: - Continue Zosyn (5) HTN (hypertension) Current Visit: Yes Status: Chronic Assessment and Plan: - Patient has a history of hypertension - Hydralazine when necessary (6) DVT prophylaxis Current Visit: No Status: Acute Assessment and Plan: - SQ heparin - Time Spent with Patient Total time spent is greater than 50% in coordination of care (as documented) at patient's floor/unit and/or counseling patient: Internal Medicine: Result - Labs CBC & Chem 7: 03/23/19 08:01 03/23/19 08:01 Labs: Short CBC 03/23/19 Range/Units 08:01 WBC 13.7 H (4.3-11.1) K/mcL Hgb 12.0 (11.5-15.4) g/dL Hct 37.2 (35.3-44.9) % Plt Count 232 (140-400) K/mcL Neutrophils # 11.3 H (1.6-8.9) K/mcL BMP 03/23/19 08:01 Sodium 139 Potassium 3.5 Chloride 102 Carbon Dioxide 26 BUN 23 Creatinine 0.52 L Glucose 79 Calcium 9.5 Cardiac Enzymes 03/22/19 03/22/19 03/23/19 Range/Units 18:39 22:49 08:01 Troponin I 0.07 H* 0.07 H* 0.07 H* (< 0.04) ng/mL - ABG Interpretation ABG results: ABG ABG pH 7.37 pH Units (7.32-7.45) 03/22/19 15:47 ABG pCO2 53 mmHg (35-45) H 03/22/19 15:47 ABG pO2 93 mmHg (85-104) 03/22/19 15:47 ABG O2 Saturation 97 % (95-98) 03/22/19 15:47 PT/INR, D-dimer PT 11.1 Seconds (9.4-12.1) 03/22/19 10:11 - Impressions Impressions Head CT 03/22/19 09:59 IMPRESSION: 1. No definite acute intracranial abnormality. 2. Suspected new tiny chronic appearing focus of encephalomalacia in the anterior base of the right frontal lobe. Unchanged encephalomalacia in the bilateral temporal lobes. 3. Age-appropriate mild diffuse atrophy with moderate to severe chronic small vessel ischemic changes. D/ / Jerardo Burger MD / Jerardo Burger MD Interpreting Provider: Jerardo Burger MD Chest CTA 03/22/19 17:21 IMPRESSION: 1. No evidence for acute pulmonary embolism. 2. Mild enlargement of pulmonary trunk can be seen in pulmonary hypertension or may be normal for patient. 3. Small right pleural effusion with right lower lobe basal consolidation probably combination of pneumonia and atelectasis. There is subsegmental atelectasis posterior left lung base. 4. Fairly stable right adrenal myelolipoma 4.2 x 3.4 cm. D/ / Nick Polo MD / Nick Polo MD Interpreting Provider: Nick Polo MD Echocardiogram 03/23/19 18:33 Impressions: LVEF 60%. Asymmetric septal hypertrophy. No LVOT obstruction. Mild left ventricular diastolic dysfunction. Right ventricular structure is not well visualized. Grossly, systolic function is normal. Mild aortic regurgitation. Mild-moderate aortic stenosis. Mild tricuspid regurgitation. Mild pulmonic regurgitation. Mild pulmonary hypertension. Left Ventricular Wall Motion: Rest Echo Findings All wall segments showed normal motion. Findings: Study Quality * Technically adequate exam. ECG Findings * Normal sinus rhythm. Left Ventricle * LVEF 60%. * Asymmetric septal hypertrophy. * Mild left ventricular diastolic dysfunction. Right Ventricle * Right ventricular structure is not well visualized. Grossly, systolic function is normal. Left Atrium * Severely dilated left atrium. Right Atrium * Right atrium is not well visualized. Mitral Valve * Mild-moderate mitral annular calcification * No mitral regurgitation. * No mitral stenosis. Aortic Valve * Aortic valve not well visualized. * No aortic stenosis. * Mild aortic regurgitation. * Mild-moderate aortic stenosis. Tricuspid Valve * Tricuspid valve not well visualized. * Mild tricuspid regurgitation. * Estimated RA pressure is 8 mmHg. * Estimated RVSP is 38 mmHg. * Mild pulmonary hypertension. Pulmonic Valve * Pulmonic valve is not well visualized. * No pulmonic stenosis. * Mild pulmonic regurgitation. Pulmonary Artery * Pulmonary artery not well visualized. Aorta * Normally sized aortic root. Pericardium * There is no pericardial effusion present. Interatrial Septum * No evidence of PFO by color Doppler. IVC * The IVC is not dilated. * < 50% respiratory change. Consult Discharge Plan - Plan Referrals: NONE,PCP [Primary Care Provider] - Megan aCstro DO [Partnered Physician] - (Patient is from [facility] no PCP appointment needed) <Marcos Sheridan - Last Filed: 03/23/19 20:40> Hospitalist Progress Note - Encounter Date of Encounter: 03/23/19 - Exam Vitals: Temp Pulse Resp BP Pulse Ox 99.0 F 86 18 165/90 100 03/23/19 19:41 03/23/19 19:41 03/23/19 20:13 03/23/19 19:41 03/23/19 20:13 - Time Spent with Patient Total time spent is greater than 50% in coordination of care (as documented) at patient's floor/unit and/or counseling patient: Internal Medicine: Result - Labs CBC & Chem 7: 03/23/19 08:01 03/23/19 08:01 Labs: Short CBC 03/23/19 Range/Units 08:01 WBC 13.7 H (4.3-11.1) K/mcL Hgb 12.0 (11.5-15.4) g/dL Hct 37.2 (35.3-44.9) % Plt Count 232 (140-400) K/mcL Neutrophils # 11.3 H (1.6-8.9) K/mcL BMP 03/23/19 08:01 Sodium 139 Potassium 3.5 Chloride 102 Carbon Dioxide 26 BUN 23 Creatinine 0.52 L Glucose 79 Calcium 9.5 Cardiac Enzymes 03/22/19 03/23/19 Range/Units 22:49 08:01 Troponin I 0.07 H* 0.07 H* (< 0.04) ng/mL - ABG Interpretation ABG results: ABG ABG pH 7.37 pH Units (7.32-7.45) 03/22/19 15:47 ABG pCO2 53 mmHg (35-45) H 03/22/19 15:47 ABG pO2 93 mmHg (85-104) 03/22/19 15:47 ABG O2 Saturation 97 % (95-98) 03/22/19 15:47 PT/INR, D-dimer PT 11.1 Seconds (9.4-12.1) 03/22/19 10:11 - Impressions Impressions Echocardiogram 03/23/19 18:33 Impressions: LVEF 60%. Asymmetric septal hypertrophy. No LVOT obstruction. Mild left ventricular diastolic dysfunction. Right ventricular structure is not well visualized. Grossly, systolic function is normal. Mild aortic regurgitation. Mild-moderate aortic stenosis. Mild tricuspid regurgitation. Mild pulmonic regurgitation. Mild pulmonary hypertension. Left Ventricular Wall Motion: Rest Echo Findings All wall segments showed normal motion. Findings: Study Quality * Technically adequate exam. ECG Findings * Normal sinus rhythm. Left Ventricle * LVEF 60%. * Asymmetric septal hypertrophy. * Mild left ventricular diastolic dysfunction. Right Ventricle * Right ventricular structure is not well visualized. Grossly, systolic function is normal. Left Atrium * Severely dilated left atrium. Right Atrium * Right atrium is not well visualized. Mitral Valve * Mild-moderate mitral annular calcification * No mitral regurgitation. * No mitral stenosis. Aortic Valve * Aortic valve not well visualized. * No aortic stenosis. * Mild aortic regurgitation. * Mild-moderate aortic stenosis. Tricuspid Valve * Tricuspid valve not well visualized. * Mild tricuspid regurgitation. * Estimated RA pressure is 8 mmHg. * Estimated RVSP is 38 mmHg. * Mild pulmonary hypertension. Pulmonic Valve * Pulmonic valve is not well visualized. * No pulmonic stenosis. * Mild pulmonic regurgitation. Pulmonary Artery * Pulmonary artery not well visualized. Aorta * Normally sized aortic root. Pericardium * There is no pericardial effusion present. Interatrial Septum * No evidence of PFO by color Doppler. IVC * The IVC is not dilated. * < 50% respiratory change. - Attending Attestation I examined this patient and my medical decision-making was reviewed with the Resident Physician. I agree with the documented findings, disposition and mahesh tment plan as described except to the extent set forth below. <Toi Griffin - Last Filed: 03/23/19 19:02> (2) Sepsis Qualifiers: Sepsis type: sepsis due to unspecified organism Qualified Code(s): A41.9 - Sepsis, unspecified organism (3) Pneumonia Qualifiers: Pneumonia type: due to unspecified organism Laterality: right Lung location: lower lobe of lung Qualified Code(s): J18.1 - Lobar pneumonia, unspecified organism (4) UTI (urinary tract infection) Qualifiers: Urinary tract infection type: acute cystitis Hematuria presence: without hematuria Qualified Code(s): N30.00 - Acute cystitis without hematuria (5) HTN (hypertension) Qualifiers: Hypertension type: unspecified Qualified Code(s): I10 - Essential (primary) hypertension
[2019-03-24] MEDS: Piperacillin/Tazobactam 3.375 GM in 0.9 % Sodium Chloride Mini Bag 100 ML IVPB SCH ×3 (03:05→17:46)
[2019-03-24 03:46] LABS: ABG Base Excess 3 mEq/L (-2 to 3); ABG HCO3 28 mEq/L (21-27); ABG Oxygen Saturation 98 % (95-98); ABG PCO2 42 mmHg (35-45); ABG PH 7.43 pH Units (7.32-7.45); ABG PO2 107 mmHg (85-104); ABG TCO2 29 mEq/L (20-26); Blood Gas Modality AVAPS; Blood Gas Respiration Rate 10; Blood Gas VT 450 cc
[2019-03-24 04:04] LABS: BUN/Creatinine Ratio 44 (6-26); Blood Urea Nitrogen 21 mg/dL (8-23); Calcium 8.7 mg/dL (8.6-10.3); Carbon Dioxide 23 mEq/L (23-29); Chloride 109 mEq/L (98-107); Glucose 76 mg/dL (70-105); Osmolality,Calculated 294 (280-300); Potassium 4.1 mEq/L (3.5-5.1); Sodium 141 mEq/L (136-145); eGFR For Non-African Americans > 60 (> 60)
[2019-03-24 04:44] LABS: Basophils % 0.2 %; Eosinophils # 0.1 K/mcL (0.0-0.6); Eosinophils % 0.7 %; Hemoglobin 10.5 g/dL (11.5-15.4); Immature Granulocytes % 0.8 % (0-4); Lymphocytes # 1.4 K/mcL (0.6-4.6); Mean Corpuscular HGB Conc 31.8 g/dL (31.6-35.5); Mean Corpuscular Hemoglobin 31.3 pg (28.0-33.3); Mean Corpuscular Volume 98.5 fL (83.0-100.0); Mean Platelet Volume 9.5 fL (9.4-12.4); Monocytes # 0.7 K/mcL (0.0-1.3); Platelet Count 228 K/mcL (140-400); Red Blood Count 3.35 M/mcL (3.82-4.97); Red Cell Distribution Width 13.1 % (11.5-14.5); Segmented Neutrophils % 76.3 %
[2019-03-24] MEDS: Doxycycline 100 MG in 0.9 % Sodium Chloride Mini Bag 100 ML IVPB SCH ×2 (07:03→17:46)
[2019-03-24] MEDS: *HR* Heparin 5,000 UNIT/ML VIAL SQ SCH ×2 (07:04→17:48)
--- NOTE | 2019-03-24 14:18 | Internal Med Progress Note ---
<Marva Dill - Last Filed: 03/24/19 14:30> Hospitalist Progress Note - Encounter Date of Encounter: 03/24/19 Time of Encounter: 09:45 - Subjective Interval History: Patient seen and examined at bedside today. She remains altered, nonverbal however she is arousable. She does respond with opening eyes as well as squeezing hands and moving toes. She is unable to not yes or no in response to questions. Review of systems unobtainable. Per nursing staff, the patient did well overnight. - Exam Vitals: Temp Pulse Resp BP Pulse Ox 97.1 F L 100 17 175/98 96 03/24/19 12:06 03/24/19 12:06 03/24/19 12:06 03/24/19 12:06 03/24/19 12:06 Exam: Gen: Vitals noted. Alert, oriented 0. Lethargic, able to follow commands, currently on BiPAP. HEENT: EOMI, Normocephalic, atraumatic Cardiac: RRR, murmur present, +S1/S2, radial and dorsal pedis pulses 2+ and symmetrical Pulmonary: Diminished breath sounds bilaterally, no wheezes, Rales, rhonchi, equal chest expansion, BiPAP in place Abdomen: soft, nondistended, nontender, BS noted, no guarding, no rebound. MSK: Foot drop on the left, able to wiggle toes, unable to fully evaluate range of motion, no joint swelling noted, left foot in plantar flexion with inversion Extremities: 1+ pitting edema bilaterally, no calf tenderness, no cyanosis or clubbing, ecchymosis bilaterally on upper extremities Neuro: A&Ox0, able to squeeze hands, move toes, unable to fully assess Psych: Unable to assess - Assessment and Plan (1) Acute respiratory failure with hypoxia and hypercapnia Current Visit: Yes Status: Acute Assessment and Plan: Presented with hypoxemic and hypercapnic respiratory failure, O2 saturation to the 80s Secondary to pneumonia, UTI, sepsis. Suspect undiagnosed COPD Altered mental status, confusion, hallucinations ABGs improved - CXR: Minimal basilar atelectasis right worse than left - CTA of chest: Small right pleural effusion with right lower lobe basal elevation, possibly combination of pneumonia and atelectasis Remains on BiPAP, plan to wean today as tolerated Continue DuoNeb Continue respiratory support as needed (2) Sepsis Current Visit: Yes Status: Acute Assessment and Plan: Presented with tachycardia, leukocytosis, tachypnea Vital signs as well as labs have improved, leukocytosis resolved Secondary to UTI, pneumonia Urine culture positive for Escherichia coli as well as a gram-positive cocci Blood culture-1 of 2 blood culture positive for staph species, not staph aureus with M methicillin resistance gene- suspect possible skin akshat contaminant as only one of these cultures was positive as opposed to bacteremia. Serology positive for Staphylococcus species and mecA methicillin-resistant gene Legionella and strep pneumonia urine antigens negative MRSA swab negative Sputum culture pending Continue vancomycin, Zosyn, doxycycline De-escalate as able (3) Pneumonia Current Visit: Yes Status: Acute Assessment and Plan: Contributing to acute respiratory failure CXR: Minimal basilar atelectasis right worse than left CTA of chest: Small right pleural effusion with right lower lobe basal elevation, possibly combination of pneumonia and atelectasis Strep and legionella urine antigens negative MRSA swab negative Continue vancomycin, Zosyn, doxycycline (4) UTI (urinary tract infection) Current Visit: Yes Status: Acute Assessment and Plan: Urinalysis positive for nitrates, leukocyte esterase, WBC, bacteria Prior culture positive for Proteus, Klebsiella Urine culture positive for Escherichia coli, gram-positive cocci Continue Zosyn (5) Altered mental status Current Visit: Yes Status: Acute Assessment and Plan: Patient remains altered however she is arousable and able to follow commands Suspect secondary to acute respiratory failure, sepsis with UTI, pneumonia Continue management as above (6) Heart failure with preserved ejection fraction Current Visit: Yes Status: Chronic Assessment and Plan: History of diastolic heart failure Does not appear to be an exacerbation CARLOS's Avoid fluid overload (7) HTN (hypertension) Current Visit: Yes Status: Chronic Assessment and Plan: Continue hydralazine when necessary (8) DVT prophylaxis Current Visit: Yes Status: Acute Assessment and Plan: Subcutaneous heparin - Time Spent with Patient Total time spent is greater than 50% in coordination of care (as documented) at patient's floor/unit and/or counseling patient: Internal Medicine: Result - Labs CBC & Chem 7: 03/24/19 04:04 03/24/19 03:37 Labs: Short CBC 03/24/19 Range/Units 04:04 WBC 9.2 (4.3-11.1) K/mcL Hgb 10.5 L D (11.5-15.4) g/dL Hct 33.0 L (35.3-44.9) % Plt Count 228 (140-400) K/mcL Neutrophils # 7.0 (1.6-8.9) K/mcL BMP 03/24/19 03:37 Sodium 141 Potassium 4.1 Chloride 109 H Carbon Dioxide 23 BUN 21 Creatinine 0.48 L Glucose 76 Calcium 8.7 - ABG Interpretation ABG results: ABG ABG pH 7.43 pH Units (7.32-7.45) 03/24/19 03:43 ABG pCO2 42 mmHg (35-45) 03/24/19 03:43 ABG pO2 107 mmHg (85-104) H 03/24/19 03:43 ABG O2 Saturation 98 % (95-98) 03/24/19 03:43 PT/INR, D-dimer PT 11.1 Seconds (9.4-12.1) 03/22/19 10:11 Consult Discharge Plan - Plan Referrals: NONE,PCP [Primary Care Provider] - Megan Castro, [Partnered Physician] - (Patient is from [facility] no PCP appointment needed) <Marcos Sheridan - Last Filed: 03/24/19 14:49> Hospitalist Progress Note - Encounter Date of Encounter: 03/24/19 - Exam Vitals: Temp Pulse Resp BP Pulse Ox 97.1 F L 100 17 150/78 96 03/24/19 12:06 03/24/19 12:06 03/24/19 12:06 03/24/19 14:35 03/24/19 12:06 - Time Spent with Patient Total time spent is greater than 50% in coordination of care (as documented) at patient's floor/unit and/or counseling patient: Internal Medicine: Result - Labs CBC & Chem 7: 03/24/19 04:04 03/24/19 03:37 Labs: Short CBC 03/24/19 Range/Units 04:04 WBC 9.2 (4.3-11.1) K/mcL Hgb 10.5 L D (11.5-15.4) g/dL Hct 33.0 L (35.3-44.9) % Plt Count 228 (140-400) K/mcL Neutrophils # 7.0 (1.6-8.9) K/mcL BMP 03/24/19 03:37 Sodium 141 Potassium 4.1 Chloride 109 H Carbon Dioxide 23 BUN 21 Creatinine 0.48 L Glucose 76 Calcium 8.7 - ABG Interpretation ABG results: ABG ABG pH 7.43 pH Units (7.32-7.45) 03/24/19 03:43 ABG pCO2 42 mmHg (35-45) 03/24/19 03:43 ABG pO2 107 mmHg (85-104) H 03/24/19 03:43 ABG O2 Saturation 98 % (95-98) 03/24/19 03:43 PT/INR, D-dimer PT 11.1 Seconds (9.4-12.1) 03/22/19 10:11 - Attending Attestation I examined this patient and my medical decision-making was reviewed with the Resident Physician. I agree with the documented findings, disposition and treatment plan as described except to the extent set forth below. <Marva Dill - Last Filed: 03/24/19 14:30> (2) Sepsis Qualifiers: Sepsis type: sepsis due to unspecified organism Qualified Code(s): A41.9 - Sepsis, unspecified organism (3) Pneumonia Qualifiers: Pneumonia type: due to unspecified organism Laterality: right Lung location: lower lobe of lung Qualified Code(s): J18.1 - Lobar pneumonia, unspecified organism (4) UTI (urinary tract infection) Qualifiers: Urinary tract infection type: acute cystitis Hematuria presence: without hematuria Qualified Code(s): N30.00 - Acute cystitis without hematuria (5) Altered mental status Qualifiers: Altered mental status type: somnolence Qualified Code(s): R40.0 - Somnolence (6) Heart failure with preserved ejection fraction Qualifiers: Heart failure chronicity: unspecified Qualified Code(s): I50.30 - Unspecified diastolic (congestive) heart failure (7) HTN (hypertension) Qualifiers: Hypertension type: unspecified Qualified Code(s): I10 - Essential (primary) hypertension
[2019-03-24] MEDS ORDERED: *HR* Metoprolol 5 MG/5 ML VIAL IVP ONE ×2 (15:40→16:08)
[2019-03-24] MEDS ORDERED: *HR* Dextrose 50 % in Water (Syg) 50 ML SYRINGE IVP STA (17:19)
[2019-03-25] MEDS: Piperacillin/Tazobactam 3.375 GM in 0.9 % Sodium Chloride Mini Bag 100 ML IVPB SCH ×3 (00:03→17:15)
[2019-03-25 04:43] LABS: Basophils % 0.2 %; Eosinophils % 0.1 %; Hematocrit 32.7 % (35.3-44.9); Hemoglobin 10.5 g/dL (11.5-15.4); Immature Granulocytes % 0.3 % (0-4); Lymphocytes % 7.5 %; Mean Corpuscular HGB Conc 32.1 g/dL (31.6-35.5); Mean Corpuscular Hemoglobin 31.3 pg (28.0-33.3); Mean Corpuscular Volume 97.6 fL (83.0-100.0); Mean Platelet Volume 9.4 fL (9.4-12.4); Monocytes # 0.5 K/mcL (0.0-1.3); Monocytes % 4.2 %; Neutrophils # 11.2 K/mcL (1.6-8.9); Platelet Count 219 K/mcL (140-400); Red Blood Count 3.35 M/mcL (3.82-4.97); Red Cell Distribution Width 13.2 % (11.5-14.5); Segmented Neutrophils % 87.7 %
[2019-03-25] MEDS: Doxycycline 100 MG in 0.9 % Sodium Chloride Mini Bag 100 ML IVPB SCH (05:43)
[2019-03-25] MEDS: *HR* Heparin 5,000 UNIT/ML VIAL SQ SCH ×2 (05:46→17:15)
[2019-03-25 05:57] LABS: BUN/Creatinine Ratio 33 (6-26); Blood Urea Nitrogen 16 mg/dL (8-23); Calcium 8.8 mg/dL (8.6-10.3); Carbon Dioxide 26 mEq/L (23-29); Chloride 107 mEq/L (98-107); Glucose 91 mg/dL (70-105); Osmolality,Calculated 301 (280-300); Potassium 2.8 mEq/L (3.5-5.1); Sodium 145 mEq/L (136-145); eGFR For Non-African Americans > 60 (> 60)
[2019-03-25] MEDS ORDERED: Potassium Chloride 40 MEQ, Lidocaine 1% 2 ML in D5% in Water 500 ML IVPB ONE ×2 (08:41→12:03)
[2019-03-25] MEDS ORDERED: Aminoglycoside Consult 1 EACH MC ONE (10:17)
[2019-03-25] MEDS: amLODIPine 5 MG TABLET PO SCH (12:23)
[2019-03-25] MEDS ORDERED: Furosemide 20 MG/2 ML VIAL IVP ONE (12:33)
--- NOTE | 2019-03-25 16:27 | Internal Med Progress Note ---
<Marva Dill - Last Filed: 03/25/19 16:35> Hospitalist Progress Note - Encounter Date of Encounter: 03/25/19 Time of Encounter: 09:30 - Subjective Interval History: Patient seen and examined at bedside today. She is significantly improved, she is off BiPAP. She is awake alert and oriented 3, able to hold conversation. She did pass her swallow evaluation and was placed on a full diet. However, patient will be scaled back to clears today to further monitor respiratory status and assess need for continued BiPAP. She currently has no complaints, she denies lightheadedness, chest pain, shortness of breath, cough, pleuritic pain, abdominal pain, diarrhea, constipation, hematochezia, dysuria, hematuria, calf pain. - Exam Vitals: Temp Pulse Resp BP Pulse Ox 98.6 F 76 18 166/92 92 03/25/19 11:35 03/25/19 13:40 03/25/19 11:35 03/25/19 15:00 03/25/19 13:40 Exam: Gen: Vitals noted. Alert, oriented 3. Resting comfortably in bed, able to answer questions, follow commands HEENT: PERRL/EOMI, Normocephalic, atraumatic, mucous membranes moist Cardiac: RRR, murmur present, +S1/S2, radial and dorsal pedis pulses 2+ and sy mmetrical Pulmonary: Diminished course breath sounds bilaterally, somewhat improved since yesterday, no wheezes, Rales, rhonchi, equal chest expansion Abdomen: soft, nondistended, nontender, BS noted, no guarding, no rebound. MSK: Foot drop on the left, left foot in plantar flexion with inversion, able to wiggle toes, unable to fully evaluate range of motion, no joint swelling noted Extremities: 1+ pitting edema bilaterally, no calf tenderness, no cyanosis or clubbing, ecchymosis and some mild edema of her upper extremities bilaterally Neuro: A&Ox3, in no focal deficits noted, and nerve II through XII grossly intact Psych: Appropriate mood and behavior - Assessment and Plan (1) Acute respiratory failure with hypoxia and hypercapnia Current Visit: Yes Status: Acute Assessment and Plan: Significantly improved Presented with hypoxemic and hypercapnic respiratory failure, O2 saturation to the 80s Secondary to pneumonia, UTI, sepsis. Suspect undiagnosed COPD - CXR: Minimal basilar atelectasis right worse than left - CTA of chest: Small right pleural effusion with right lower lobe basal elevation, possibly combination of pneumonia and atelectasis Continue DuoNeb's Continue respiratory support as needed Clear liquid diet (2) Sepsis Current Visit: Yes Status: Acute Assessment and Plan: Secondary to UTI, pneumonia Continues to have leukocytosis Urine culture positive for Escherichia coli, enterococcus faecalis 1 out of 2 blood cultures positive for staph species, suspect skin akshat contaminant Legionella and strep pneumonia urine antigens negative MRSA swab negative Sputum culture pending We will de-escalate antibiotics-discontinue vancomycin, doxycycline Continue Zosyn (3) Pneumonia Current Visit: Yes Status: Acute Assessment and Plan: CXR: Minimal basilar atelectasis right worse than left CTA of chest: Small right pleural effusion with right lower lobe basal elevation, possibly combination of pneumonia and atelectasis Sputum culture remains pending MRSA swab, strep and legionella urine antigens negative Continue Zosyn (4) UTI (urinary tract infection) Current Visit: Yes Status: Acute Assessment and Plan: Urinalysis positive for nitrates, leukocyte esterase, WBC, bacteria Urine culture positive for Escherichia coli, Enterococcus faecalis Continue Zosyn (5) Altered mental status Current Visit: Yes Status: Acute Assessment and Plan: Resolved Management as above (6) Heart failure with preserved ejection fraction Current Visit: Yes Status: Chronic Assessment and Plan: History of diastolic heart failure Does not appear to be in exacerbation I&O's (7) HTN (hypertension) Current Visit: Yes Status: Chronic Assessment and Plan: Has been uncontrolled Now that patient off BiPAP, have restarted Lopressor, amlodipine Vasotec when necessary Continue to monitor (8) DVT prophylaxis Current Visit: Yes Status: Acute Assessment and Plan: Subcutaneous heparin - Time Spent with Patient Total time spent is greater than 50% in coordination of care (as documented) at patient's floor/unit and/or counseling patient: Internal Medicine: Result - Labs CBC & Chem 7: 03/25/19 04:30 03/25/19 04:30 Labs: Short CBC 03/25/19 Range/Units 04:30 WBC 12.8 H (4.3-11.1) K/mcL Hgb 10.5 L (11.5-15.4) g/dL Hct 32.7 L (35.3-44.9) % Plt Count 219 (140-400) K/mcL Neutrophils # 11.2 H (1.6-8.9) K/mcL BMP 03/25/19 04:30 Sodium 145 Potassium 2.8 L Chloride 107 Carbon Dioxide 26 BUN 16 Creatinine 0.49 L Glucose 91 Calcium 8.8 - ABG Interpretation ABG results: ABG ABG pH 7.43 pH Units (7.32-7.45) 03/24/19 03:43 ABG pCO2 42 mmHg (35-45) 03/24/19 03:43 ABG pO2 107 mmHg (85-104) H 03/24/19 03:43 ABG O2 Saturation 98 % (95-98) 03/24/19 03:43 PT/INR, D-dimer PT 11.1 Seconds (9.4-12.1) 03/22/19 10:11 Consult Discharge Plan - Plan Referrals: NONE,PCP [Primary Care Provider] - Megan Castro, [Partnered Physician] - (Patient is from [facility] no PCP appointment needed) <Marcos Sheridan - Last Filed: 03/25/19 17:22> Hospitalist Progress Note - Encounter Date of Encounter: 03/25/19 - Exam Vitals: Temp Pulse Resp BP Pulse Ox 98.6 F 98 19 174/98 92 03/25/19 16:52 03/25/19 16:52 03/25/19 16:52 03/25/19 16:52 03/25/19 16:52 - Time Spent with Patient Total time spent is greater than 50% in coordination of care (as documented) at patient's floor/unit and/or counseling patient: Internal Medicine: Result - Labs CBC & Chem 7: 03/25/19 04:30 03/25/19 04:30 Labs: Short CBC 03/25/19 Range/Units 04:30 WBC 12.8 H (4.3-11.1) K/mcL Hgb 10.5 L (11.5-15.4) g/dL Hct 32.7 L (35.3-44.9) % Plt Count 219 (140-400) K/mcL Neutrophils # 11.2 H (1.6-8.9) K/mcL BMP 03/25/19 04:30 Sodium 145 Potassium 2.8 L Chloride 107 Carbon Dioxide 26 BUN 16 Creatinine 0.49 L Glucose 91 Calcium 8.8 - ABG Interpretation ABG results: ABG ABG pH 7.43 pH Units (7.32-7.45) 03/24/19 03:43 ABG pCO2 42 mmHg (35-45) 03/24/19 03:43 ABG pO2 107 mmHg (85-104) H 03/24/19 03:43 ABG O2 Saturation 98 % (95-98) 03/24/19 03:43 PT/INR, D-dimer PT 11.1 Seconds (9.4-12.1) 03/22/19 10:11 - Attending Attestation I examined this patient and my medical decision-making was reviewed with the Resident Physician. I agree with the documented findings, disposition and treatment plan as described except to the extent set forth below. <Marva Dill - Last Filed: 03/25/19 16:35> (2) Sepsis Qualifiers: Sepsis type: sepsis due to unspecified organism Qualified Code(s): A41.9 - Sepsis, unspecified organism (3) Pneumonia Qualifiers: Pneumonia type: due to unspecified organism Laterality: right Lung location: lower lobe of lung Qualified Code(s): J18.1 - Lobar pneumonia, unspecified organism (4) UTI (urinary tract infection) Qualifiers: Urinary tract infection type: acute cystitis Hematuria presence: without hematuria Qualified Code(s): N30.00 - Acute cystitis without hematuria (5) Altered mental status Qualifiers: Altered mental status type: somnolence Qualified Code(s): R40.0 - Somnolence (6) Heart failure with preserved ejection fraction Qualifiers: Heart failure chronicity: unspecified Qualified Code(s): I50.30 - Unspecified diastolic (congestive) heart failure (7) HTN (hypertension) Qualifiers: Hypertension type: unspecified Qualified Code(s): I10 - Essential (primary) hypertension
--- NOTE | 2019-03-25 17:38 | Electrocardiograph Report ---
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
[2019-03-26] MEDS: Piperacillin/Tazobactam 3.375 GM in 0.9 % Sodium Chloride Mini Bag 100 ML IVPB SCH ×3 (00:08→16:31)
[2019-03-26 02:39] LABS: Basophils % 0.2 %; Eosinophils # 0.1 K/mcL (0.0-0.6); Eosinophils % 0.9 %; Hematocrit 37.3 % (35.3-44.9); Hemoglobin 11.9 g/dL (11.5-15.4); Immature Granulocytes % 0.5 % (0-4); Lymphocytes # 1.5 K/mcL (0.6-4.6); Lymphocytes % 15.1 %; Mean Corpuscular HGB Conc 31.9 g/dL (31.6-35.5); Mean Corpuscular Hemoglobin 30.9 pg (28.0-33.3); Mean Corpuscular Volume 96.9 fL (83.0-100.0); Mean Platelet Volume 9.7 fL (9.4-12.4); Monocytes # 0.7 K/mcL (0.0-1.3); Monocytes % 6.9 %; Neutrophils # 7.5 K/mcL (1.6-8.9); Platelet Count 241 K/mcL (140-400); Red Blood Count 3.85 M/mcL (3.82-4.97); Red Cell Distribution Width 13.2 % (11.5-14.5); Segmented Neutrophils % 76.4 %
[2019-03-26 03:01] LABS: BUN/Creatinine Ratio 28 (6-26); Blood Urea Nitrogen 15 mg/dL (8-23); Calcium 8.7 mg/dL (8.6-10.3); Carbon Dioxide 27 mEq/L (23-29); Chloride 108 mEq/L (98-107); Glucose 104 mg/dL (70-105); Osmolality,Calculated 301 (280-300); Potassium 3.3 mEq/L (3.5-5.1); Sodium 145 mEq/L (136-145); eGFR For Non-African Americans > 60 (> 60)
[2019-03-26] MEDS: *HR* Heparin 5,000 UNIT/ML VIAL SQ SCH ×2 (05:31→18:06)
[2019-03-26] MEDS: amLODIPine 5 MG TABLET PO SCH (08:17)
[2019-03-26] MEDS ORDERED: traMADol 50 MG TABLET PO ONE (12:30)
[2019-03-26] MEDS ORDERED: Acetaminophen 325 MG TABLET PO PRN (12:46)
--- NOTE | 2019-03-26 16:58 | Internal Med Progress Note ---
<EliasToi - Last Filed: 03/26/19 16:56> Hospitalist Progress Note - Encounter Date of Encounter: 03/26/19 Time of Encounter: 09:39 - Subjective Interval History: Patient was seen and examined at bedside; respiratory mental status have improved. Patient has not required BiPAP; has been successfully weaned off O2 via nasal cannula. We will de-escalate antibiotics to Unasyn. White count has come down to 9.8. Will advance to full liquid diet. She does not appear to be in distress and has no complaints. - Exam Vitals: Temp Pulse Resp BP Pulse Ox 98.2 F 79 16 157/81 93 03/26/19 16:25 03/26/19 16:25 03/26/19 16:25 03/26/19 16:25 03/26/19 16:25 Exam: General: No acute distress Head: atraumatic, normocephalic Eye: PERRL, EOMI, conjuntiva pink, sclera anicteric Neck: Supple, trachea midline; No lymphadenopathy Respiratory: Diminished breath sounds b/l; Prolonged expiratory phase, no, wheezes, rales, or rhonchi Cardiovascular: RRR, +S1, +S2; no murmurs, rubs, gallops Abdomen: Soft, nontender Extremities: Trace pedal edema, radial pulses palpable and symmetrical Psychiatric: Normal affect, normal mood Skin: Dry, intact - Assessment and Plan (1) Acute respiratory failure with hypoxia and hypercapnia Current Visit: Yes Status: Acute Assessment and Plan: ASSESSMENT - Presented with hypoxemic and hypercapnic respiratory failure - Likely secondary to pneumonia; possible component of undiagnosed COPD - CXR: Minimal basilar atelectasis, R>L - ABG 03/22: 7.37/53/93//32/ - ABG 03/24: 7.43/42/107/// - CTA of chest: Small R pleural effusion with RLL consolidation PLAN - Due to patient not requiring BiPAP, will advance diet to full liquid diet - DuoNeb's, respiratory support (2) Sepsis Current Visit: Yes Status: Acute Assessment and Plan: ASSESSMENT - Secondary to UTI, pneumonia - Continues to have leukocytosis - Urine culture positive for Escherichia coli, enterococcus faecalis - 1 out of 2 blood cultures positive for staph species, suspect skin akshat contaminant - Legionella and strep pneumonia urine antigens negative - Currently on Unasyn (3) Pneumonia Current Visit: Yes Status: Acute Assessment and Plan: ASSESSMENT - Chest x-ray on presentation demonstrated Minimal basilar atelectasis, R>L - Chest CTA: Small R pleural effusion with RLL consolidation - Sputum culture remains pending - MRSA swab, strep and legionella urine antigens negative PLAN - Continue Unasyn (4) UTI (urinary tract infection) Current Visit: Yes Status: Acute Assessment and Plan: ASSESSMENT - Urinalysis on presentation was suggestive of urinary tract infection - Urine CX grew melgar-sensitive Escherichia coli, Enterococcus faecalis PLAN - Unasyn (5) HTN (hypertension) Current Visit: Yes Status: Chronic Assessment and Plan: - Resume home medications (6) DVT prophylaxis Current Visit: No Status: Acute Assessment and Plan: - SQ heparin - Time Spent with Patient Total time spent is greater than 50% in coordination of care (as documented) at patient's floor/unit and/or counseling patient: Internal Medicine: Result - Labs CBC & Chem 7: 03/26/19 01:32 03/26/19 01:32 Labs: Short CBC 03/26/19 Range/Units 01:32 WBC 9.8 (4.3-11.1) K/mcL Hgb 11.9 (11.5-15.4) g/dL Hct 37.3 (35.3-44.9) % Plt Count 241 (140-400) K/mcL Neutrophils # 7.5 (1.6-8.9) K/mcL BMP 03/26/19 01:32 Sodium 145 Potassium 3.3 L Chloride 108 H Carbon Dioxide 27 BUN 15 Creatinine 0.54 L Glucose 104 Calcium 8.7 - ABG Interpretation ABG results: ABG ABG pH 7.43 pH Units (7.32-7.45) 03/24/19 03:43 ABG pCO2 42 mmHg (35-45) 03/24/19 03:43 ABG pO2 107 mmHg (85-104) H 03/24/19 03:43 ABG O2 Saturation 98 % (95-98) 03/24/19 03:43 PT/INR, D-dimer PT 11.1 Seconds (9.4-12.1) 03/22/19 10:11 Consult Discharge Plan - Plan Referrals: NONE,PCP [Primary Care Provider] - Yandila,Reggina W, DO [Partnered Physician] - (Patient is from [facility] no PCP appointment needed) <Marcos Sheridan - Last Filed: 03/26/19 20:52> Hospitalist Progress Note - Encounter Date of Encounter: 03/26/19 - Exam Vitals: Temp Pulse Resp BP Pulse Ox 98.2 F 79 16 157/81 93 03/26/19 16:25 03/26/19 16:25 03/26/19 16:25 03/26/19 16:25 03/26/19 16:25 - Time Spent with Patient Total time spent is greater than 50% in coordination of care (as documented) at patient's floor/unit and/or counseling patient: Internal Medicine: Result - Labs CBC & Chem 7: 03/26/19 01:32 03/26/19 01:32 Labs: Short CBC 03/26/19 Range/Units 01:32 WBC 9.8 (4.3-11.1) K/mcL Hgb 11.9 (11.5-15.4) g/dL Hct 37.3 (35.3-44.9) % Plt Count 241 (140-400) K/mcL Neutrophils # 7.5 (1.6-8.9) K/mcL BMP 03/26/19 01:32 Sodium 145 Potassium 3.3 L Chloride 108 H Carbon Dioxide 27 BUN 15 Creatinine 0.54 L Glucose 104 Calcium 8.7 - ABG Interpretation ABG results: ABG ABG pH 7.43 pH Units (7.32-7.45) 03/24/19 03:43 ABG pCO2 42 mmHg (35-45) 03/24/19 03:43 ABG pO2 107 mmHg (85-104) H 03/24/19 03:43 ABG O2 Saturation 98 % (95-98) 03/24/19 03:43 PT/INR, D-dimer PT 11.1 Seconds (9.4-12.1) 03/22/19 10:11 - Attending Attestation I examined this patient and my medical decision-making was reviewed with the Resident Physician. I agree with the documented findings, disposition and treatment plan as described except to the extent set forth below. <Toi Griffin - Last Filed: 03/26/19 16:56> (2) Sepsis Qualifiers: Sepsis type: sepsis due to unspecified organism Qualified Code(s): A41.9 - Sepsis, unspecified organism (3) Pneumonia Qualifiers: Pneumonia type: due to unspecified organism Laterality: right Lung location: lower lobe of lung Qualified Code(s): J18.1 - Lobar pneumonia, unspecified organism (4) UTI (urinary tract infection) Qualifiers: Urinary tract infection type: acute cystitis Hematuria presence: without hematuria Qualified Code(s): N30.00 - Acute cystitis without hematuria (5) HTN (hypertension) Qualifiers: Hypertension type: unspecified Qualified Code(s): I10 - Essential (primary) hypertension
[2019-03-27] MEDS: Ampicillin/Sulbactam 1,500 MG in 0.9 % Sodium Chloride Mini Bag 100 ML IVPB SCH ×4 (00:36→17:47)
[2019-03-27 05:55] LABS: Basophils % 0.1 %; Eosinophils # 0.1 K/mcL (0.0-0.6); Eosinophils % 0.6 %; Hematocrit 35.8 % (35.3-44.9); Hemoglobin 11.4 g/dL (11.5-15.4); Immature Granulocytes % 0.5 % (0-4); Lymphocytes # 1.5 K/mcL (0.6-4.6); Lymphocytes % 15.3 %; Mean Corpuscular HGB Conc 31.8 g/dL (31.6-35.5); Mean Corpuscular Hemoglobin 31.1 pg (28.0-33.3); Mean Corpuscular Volume 97.5 fL (83.0-100.0); Mean Platelet Volume 9.6 fL (9.4-12.4); Monocytes # 0.7 K/mcL (0.0-1.3); Monocytes % 7.1 %; Neutrophils # 7.7 K/mcL (1.6-8.9); Platelet Count 270 K/mcL (140-400); Red Blood Count 3.67 M/mcL (3.82-4.97); Red Cell Distribution Width 13.4 % (11.5-14.5); Segmented Neutrophils % 76.4 %
[2019-03-27 06:15] LABS: BUN/Creatinine Ratio 29 (6-26); Blood Urea Nitrogen 15 mg/dL (8-23); Calcium 8.8 mg/dL (8.6-10.3); Carbon Dioxide 30 mEq/L (23-29); Chloride 107 mEq/L (98-107); Glucose 120 mg/dL (70-105); Osmolality,Calculated 304 (280-300); Potassium 2.9 mEq/L (3.5-5.1); Sodium 146 mEq/L (136-145); eGFR For Non-African Americans > 60 (> 60)
[2019-03-27] MEDS: *HR* Heparin 5,000 UNIT/ML VIAL SQ SCH ×2 (06:17→17:46)
[2019-03-27] MEDS ORDERED: Potassium Chloride Elixir 20 MEQ/15 ML UDC PO ONE (07:37)
[2019-03-27] MEDS ORDERED: MOM Conc 10 ML UD.LIQ PO PRN (07:38)
[2019-03-27] MEDS ORDERED: Bisacodyl 10 MG RECTAL SUPPOSITORY RC PRN (07:38)
--- NOTE | 2019-03-27 08:48 | Internal Med Progress Note ---
<Toi Griffin - Last Filed: 03/27/19 13:26> Hospitalist Progress Note - Encounter Date of Encounter: 03/27/19 Time of Encounter: 08:00 - Subjective Interval History: Patient seen and examined at bedside; she appears very tired this morning. Only answer simple questions, and that appears to dose off to sleep. Potassium was low this morning; will replace. Blood pressure remains elevated; patients home hydralazine resumed. Currently satting well on 2 L of nasal cannula. Patient will likely be able to be weaned off oxygen. Will advance diet today. No complaints at this time. - Exam Vitals: Temp Pulse Resp BP Pulse Ox 97.8 F 81 15 160/81 98 03/27/19 08:12 03/27/19 08:12 03/27/19 08:12 03/27/19 08:12 03/27/19 08:12 Exam: General: No acute distress Head: atraumatic, normocephalic Eye: PERRL, EOMI, conjuntiva pink, sclera anicteric Neck: Supple, trachea midline; No lymphadenopathy Respiratory: Diminished breath sounds b/l; Prolonged expiratory phase, no, wheezes, rales, or rhonchi Cardiovascular: RRR, +S1, +S2; no murmurs, rubs, gallops Abdomen: Soft, nontender Extremities: Trace pedal edema, radial pulses palpable and symmetrical Psychiatric: Normal affect, normal mood Skin: Dry, intact - Assessment and Plan (1) Acute respiratory failure with hypoxia and hypercapnia Current Visit: Yes Status: Acute Assessment and Plan: ASSESSMENT - Presented with hypoxemic and hypercapnic respiratory failure - Likely secondary to pneumonia; possible component of undiagnosed COPD - CXR: Minimal basilar atelectasis, R>L - ABG 03/22: 7.37/53/93//32/ - ABG 03/24: 7.43/42/107/// - CTA of chest: Small R pleural effusion with RLL consolidation PLAN - Due to patient not requiring BiPAP, will advance diet to full liquid diet - DuoNeb's, respiratory support (2) Sepsis Current Visit: Yes Status: Acute Assessment and Plan: ASSESSMENT - Secondary to UTI, pneumonia - Continues to have leukocytosis - Urine culture positive for Escherichia coli, enterococcus faecalis - 1 out of 2 blood cultures positive for staph species, suspect skin akshat contaminant - Legionella and strep pneumonia urine antigens negative - Currently on Unasyn (3) Pneumonia Current Visit: Yes Status: Acute Assessment and Plan: ASSESSMENT - Chest x-ray on presentation demonstrated Minimal basilar atelectasis, R>L - Chest CTA: Small R pleural effusion with RLL consolidation - Sputum culture remains pending - MRSA swab, strep and legionella urine antigens negative PLAN - Continue Unasyn (4) UTI (urinary tract infection) Current Visit: Yes Status: Acute Assessment and Plan: ASSESSMENT - Urinalysis on presentation was suggestive of urinary tract infection - Urine CX grew melgar-sensitive Escherichia coli, Enterococcus faecalis PLAN - Unasyn (5) HTN (hypertension) Current Visit: Yes Status: Chronic Assessment and Plan: - Resume home medications (6) DVT prophylaxis Current Visit: No Status: Acute Assessment and Plan: - SQ heparin - Time Spent with Patient Total time spent is greater than 50% in coordination of care (as documented) at patient's floor/unit and/or counseling patient: Internal Medicine: Result - Labs CBC & Chem 7: 03/27/19 05:31 03/27/19 05:31 Labs: Short CBC 03/27/19 Range/Units 05:31 WBC 10.0 (4.3-11.1) K/mcL Hgb 11.4 L (11.5-15.4) g/dL Hct 35.8 (35.3-44.9) % Plt Count 270 (140-400) K/mcL Neutrophils # 7.7 (1.6-8.9) K/mcL BMP 03/27/19 05:31 Sodium 146 H Potassium 2.9 L Chloride 107 Carbon Dioxide 30 H BUN 15 Creatinine 0.51 L Glucose 120 H Calcium 8.8 - ABG Interpretation ABG results: ABG ABG pH 7.43 pH Units (7.32-7.45) 03/24/19 03:43 ABG pCO2 42 mmHg (35-45) 03/24/19 03:43 ABG pO2 107 mmHg (85-104) H 03/24/19 03:43 ABG O2 Saturation 98 % (95-98) 03/24/19 03:43 PT/INR, D-dimer PT 11.1 Seconds (9.4-12.1) 03/22/19 10:11 Consult Discharge Plan - Plan Referrals: NONE,PCP [Primary Care Provider] - Megan Castro, [Partnered Physician] - (Patient is from [facility] no PCP appointment needed) <Marcos Sheridan - Last Filed: 03/27/19 15:16> Hospitalist Progress Note - Encounter Date of Encounter: 03/27/19 - Exam Vitals: Temp Pulse Resp BP Pulse Ox 97.4 F L 82 16 142/90 93 03/27/19 11:53 03/27/19 11:53 03/27/19 11:53 03/27/19 11:53 03/27/19 11:53 - Time Spent with Patient Total time spent is greater than 50% in coordination of care (as documented) at patient's floor/unit and/or counseling patient: Internal Medicine: Result - Labs CBC & Chem 7: 03/27/19 05:31 03/27/19 05:31 Labs: Short CBC 03/27/19 Range/Units 05:31 WBC 10.0 (4.3-11.1) K/mcL Hgb 11.4 L (11.5-15.4) g/dL Hct 35.8 (35.3-44.9) % Plt Count 270 (140-400) K/mcL Neutrophils # 7.7 (1.6-8.9) K/mcL BMP 03/27/19 05:31 Sodium 146 H Potassium 2.9 L Chloride 107 Carbon Dioxide 30 H BUN 15 Creatinine 0.51 L Glucose 120 H Calcium 8.8 - ABG Interpretation ABG results: ABG ABG pH 7.43 pH Units (7.32-7.45) 03/24/19 03:43 ABG pCO2 42 mmHg (35-45) 03/24/19 03:43 ABG pO2 107 mmHg (85-104) H 03/24/19 03:43 ABG O2 Saturation 98 % (95-98) 03/24/19 03:43 PT/INR, D-dimer PT 11.1 Seconds (9.4-12.1) 03/22/19 10:11 - Attending Attestation I examined this patient and my medical decision-making was reviewed with the Resident Physician. I agree with the documented findings, disposition and treatment plan as described except to the extent set forth below. <Toi Griffin - Last Filed: 03/27/19 13:26> (2) Sepsis Qualifiers: Sepsis type: sepsis due to unspecified organism Qualified Code(s): A41.9 - Sepsis, unspecified organism (3) Pneumonia Qualifiers: Pneumonia type: due to unspecified organism Laterality: right Lung location: lower lobe of lung Qualified Code(s): J18.1 - Lobar pneumonia, unspecified organism (4) UTI (urinary tract infection) Qualifiers: Urinary tract infection type: acute cystitis Hematuria presence: without hematuria Qualified Code(s): N30.00 - Acute cystitis without hematuria (5) HTN (hypertension) Qualifiers: Hypertension type: unspecified Qualified Code(s): I10 - Essential (primary) hypertension
[2019-03-27] MEDS: Benzonatate 100 MG CAPSULE PO PRN (09:24)
[2019-03-27] MEDS: Multivit/Ca/Min/Fe/FA 1 TAB TABLET PO SCH (09:24)
[2019-03-27] MEDS: Lactobacillus 1 EACH CAP.SPRINK PO SCH ×2 (09:28→20:42)
[2019-03-27] MEDS: Aspirin 81 MG TAB.CHEW PO SCH (09:29)
[2019-03-27] MEDS: Nystatin Cream 15 GM TUBE TP SCH ×2 (09:29→20:43)
[2019-03-27] MEDS: amLODIPine 5 MG TABLET PO SCH (09:29)
[2019-03-27] MEDS: hydrALAZINE 25 MG TABLET PO SCH ×2 (09:29→17:46)
[2019-03-27] MEDS: *HR* LORazepam 0.5 MG TABLET PO SCH (09:30)
[2019-03-27] MEDS: traMADol 50 MG TABLET PO PRN (09:45)
[2019-03-27] MEDS ORDERED: Furosemide 20 MG/2 ML VIAL IVP ONE (11:01)
[2019-03-28] MEDS: hydrALAZINE 25 MG TABLET PO SCH ×3 (01:13→16:31)
[2019-03-28] MEDS: Ampicillin/Sulbactam 1,500 MG in 0.9 % Sodium Chloride Mini Bag 100 ML IVPB SCH ×5 (01:14→23:59)
[2019-03-28] MEDS: *HR* Heparin 5,000 UNIT/ML VIAL SQ SCH ×2 (06:10→18:01)
--- NOTE | 2019-03-28 08:54 | Discharge Summary ---
Orders not resulted at time of discharge: Pending orders 03/22/19 19:39 Culture,Sputum with Gram Stain [RM] Routine 03/23/19 09:00 EKG [ECG 12 lead ECG] [ECG] Routine 03/28/19 06:56 Basic Metabolic Panel Stat Magnesium Stat Date of Encounter: 03/28/19 Time of Encounter: 08:53 - Discharge Diagnosis (1) Acute respiratory failure with hypoxia and hypercapnia Priority: Primary Status: Acute (2) Sepsis Priority: Secondary Status: Acute Qualifiers: Sepsis type: sepsis due to unspecified organism Qualified Code(s): A41.9 - Sepsis, unspecified organism (3) Pneumonia Priority: Secondary Status: Acute Qualifiers: Pneumonia type: due to unspecified organism Laterality: right Lung location: lower lobe of lung Qualified Code(s): J18.1 - Lobar pneumonia, unspecified organism (4) UTI (urinary tract infection) Priority: Secondary Status: Acute Qualifiers: Urinary tract infection type: acute cystitis Hematuria presence: without hematuria Qualified Code(s): N30.00 - Acute cystitis without hematuria (5) HTN (hypertension) Priority: Secondary Status: Chronic Qualifiers: Hypertension type: unspecified Qualified Code(s): I10 - Essential (primary) hypertension (6) DVT prophylaxis Priority: Secondary Status: Acute Hospital course: Ms. Rolle is a 83-year-old female with a PMH of GERD, HTN, CAD, HFpEF, aortic stenosis, anxiety, and depression who presented to [facility] ED on 03/22/19 with unresponsiveness and respiratory failure. She was accompanied by family. They reported that since she was admitted in January for urinary tract infection, patient had become increasingly weak and fatigued. In the days leading up to admission, she had reportedly had hallucinations of seeing things in the air that were not there and being concerned about people behind her. On date of presentation, she had increased confusion to the point of unresponsiveness at her nursing facility, unable to speak or wake up. Upon arrival to the emergency department, patients vital signs were as follows: Temperature 98.3, pulse 82, respiratory rate 18, blood pressure 168/74, and O2 saturation 99%. Labs demonstrated an elevated white count at 12.2, low potassium at 3.3, elevated troponin 0.07. Arterial blood gas: 7.37/53/93/31/32/97. Urine tox screen was negative. Urinalysis demonstrated a likely UTI. CXR demonstrated bibasilar atelectasis, greater on the right than on the left. CT scan of the head showed no definitive acute intracranial abnormality, evidence of encephalomalacia. Blood and urine cultures were drawn. EKG showed NSR, rate 82, ST depression in leads 1 and aVL which is new from previous as well as flat T waves in V4 through V6. In the emergency department, she was not responsive to verbal stimuli. On transit, her oxygen saturation was 83%. She was started on BiPAP. This caused her mentation to slightly improved. She was admitted for altered mentation secondary to hypercapnia and UTI. Pulmonology was consulted. A CT scan of the chest was obtained, which showed no evidence of acute PE, evidence of pulmonary hypertension, small, right-sided pleural effusion with right lower lobe basal consolidation, pneumonia versus atelectasis. Initially, she was started on Zosyn and doxycycline. Urine culture grew Escherichia coli and Enterococcus faecalis. Patient was initially treated with BiPAP, and then was weaned off gradually. She was then successfully weaned off oxygen via nasal cannula altogether. During this time, patients diet was slowly advanced. On date of discharge, she is tolerating a regular diet well, and is no longer requiring oxygen. Her mental status appears much improved. She is alert and oriented 3. She denies having any shortness of breath, cough, wheezing, or sputum production. Lung sounds are improved. She is currently on day 7 of antibiotics; she will be discharged on 3 more days of Augmentin. - Time Spent with Patient Total time spent providing and/or coordinating discharge services: - Discharge Medications Prescriptions: No Action Pantoprazole Sodium [Protonix] 40 mg PO DAILY Aspirin 81 mg PO DAILY Losartan Potassium [Cozaar] 50 mg PO BID #60 tab Metoprolol [Lopressor] 25 mg PO BID Lactobacillus Acidophilus [Acidophilus] 1 tab PO BID Benzonatate 100 mg PO DAILY PRN PRN Reason: Cough Guaifenesin [Mucinex] 600 mg PO BID PRN PRN Reason: Congestion Docusate [Colace] 100 mg PO BID PRN capsule PRN Reason: Constipation hydrALAZINE [HydrALAZINE] 50 mg PO Q8HR Amlodipine Besylate 7.5 mg PO DAILY Multivit-Min/FA/Lycopen/Lutein [A Thru Z Select Multivit Tab] 1 tab PO DAILY Acetaminophen [Tylenol] 650 mg PO Q6HR PRN tablet PRN Reason: Mild Pain/Fever Bisacodyl [Dulcolax] 10 mg RC DAILY PRN PRN Reason: Constipation Sertraline [Zoloft] 50 mg PO DAILY Ascorbic Acid [Vitamin C with Afshan Hips] 500 mg PO DAILY Tramadol HCl [Ultram] 50 mg PO Q12H PRN 4 Days #5 tablet PRN Reason: Pain MOM Conc [Milk of Magnesia Conc] 30 ml PO DAILY PRN PRN Reason: Constipation LORazepam [Ativan] 0.5 mg PO DAILY Nystatin Cream [Mycostatin Cream] 1 applic TP BID Home Medications: Pantoprazole Sodium [Protonix] 40 mg PO DAILY 10/12/16 [History] Aspirin 81 mg PO DAILY 12/01/16 [History] Losartan Potassium [Cozaar] 50 mg PO BID #60 tab 12/03/16 [Rx] Metoprolol [Lopressor] 25 mg PO BID 11/04/17 [History] Benzonatate 100 mg PO DAILY PRN 12/02/17 [History] Guaifenesin [Mucinex] 600 mg PO BID PRN 12/02/17 [History] Lactobacillus Acidophilus [Acidophilus] 1 tab PO BID 12/02/17 [History] Docusate [Colace] 100 mg PO BID PRN capsule 12/21/17 [Rx] hydrALAZINE [HydrALAZINE] 50 mg PO Q8HR 02/13/18 [History] Amlodipine Besylate 7.5 mg PO DAILY 04/07/18 [History] Multivit-Min/FA/Lycopen/Lutein [A Thru Z Select Multivit Tab] 1 tab PO DAILY 04/07/18 [History] Acetaminophen [Tylenol] 650 mg PO Q6HR PRN tablet 04/14/18 [Rx] Ascorbic Acid [Vitamin C with Afshan Hips] 500 mg PO DAILY 05/06/18 [History] Bisacodyl [Dulcolax] 10 mg RC DAILY PRN 05/06/18 [History] Sertraline [Zoloft] 50 mg PO DAILY 05/06/18 [History] Tramadol HCl [Ultram] 50 mg PO Q12H PRN 4 Days #5 tablet 05/10/18 [Rx] LORazepam [Ativan] 0.5 mg PO DAILY 03/22/19 [History] MOM Conc [Milk of Magnesia Conc] 30 ml PO DAILY PRN 03/22/19 [History] Nystatin Cream [Mycostatin Cream] 1 applic TP BID 03/22/19 [History] Allergies/Adverse Reactions: Allergy/AdvReac Type Severity Reaction Status Date / Time aspirin AdvReac See Verified 02/01/19 19:43 Comments Date of admission: 03/22/19 18:06 Primary care physician: PCP NONE Consults: 03/22/19 18:58 Consult to Experimental Box Tester [CONS] Routine Reason for SW Consult: [facility] 03/24/19 10:24 Consult to Invasive Line Access Team [CONS] Routine Reason for Consult: limited vascular acess Line Type: EPIV Discharging clinician: Toi Griffin Anticipated date of discharge: 03/28/19 - Constitutional Vitals: Temp Pulse Resp BP Pulse Ox 98.0 F 72 16 157/77 97 03/28/19 07:02 03/28/19 07:02 03/28/19 07:02 03/28/19 07:02 03/28/19 07:02 Exam: General: No acute distress Head: atraumatic, normocephalic Eye: PERRL, EOMI, conjuntiva pink, sclera anicteric Neck: Supple, trachea midline; No lymphadenopathy Respiratory: Diminished breath sounds b/l; Prolonged expiratory phase, no, wheezes, rales, or rhonchi Cardiovascular: RRR, +S1, +S2; no murmurs, rubs, gallops Abdomen: Soft, nontender Extremities: Trace pedal edema, radial pulses palpable and symmetrical Psychiatric: Normal affect, normal mood Skin: Dry, intact - Patient Status Disposition: Transfer SNF Condition: Good Overall status at discharge: patient is progressing back to baseline - Discharge Instructions Follow Up With: NONE,PCP [Primary Care Provider] - Megan Castro DO [Partnered Physician] - (Patient is from [facility] no PCP appointment needed) Forms: ED Satisfaction Letter - Diet and Activity Activity: as per physical therapy Diet: advance to your usual diet
[2019-03-28] MEDS ORDERED: Furosemide 40 MG/4 ML VIAL IVP ONE (09:13)
--- NOTE | 2019-03-28 09:13 | Internal Med Progress Note ---
<Toi Griffin - Last Filed: 03/28/19 13:33> Hospitalist Progress Note - Encounter Date of Encounter: 03/28/19 Time of Encounter: 09:13 - Subjective Interval History: Patient was seen and examined at bedside; she appears somnolent today. She is currently on O2 via nasal cannula, 2 L. O2 saturation yesterday was 87, which is why she was placed on oxygen. She is currently satting well. Exhibits some signs of fluid overload on exam, including pedal edema and mild bibasilar crackles. We will order an overnight BiPAP qualification study. Incentive spirometry. We will also order a one-time dose of Lasix 40 mg IV. - Exam Vitals: Temp Pulse Resp BP Pulse Ox 98.0 F 72 16 157/77 97 03/28/19 07:02 03/28/19 07:02 03/28/19 07:02 03/28/19 07:02 03/28/19 07:02 Exam: General: No acute distress; somnolent Head: atraumatic, normocephalic Eye: PERRL, EOMI, conjuntiva pink, sclera anicteric Neck: Supple, trachea midline; No lymphadenopathy Respiratory: Diminished breath sounds b/l; Prolonged expiratory phase, bibasilar crackles Cardiovascular: RRR, +S1, +S2; no murmurs, rubs, gallops Abdomen: Soft, nontender Extremities: Trace pedal edema bilaterally, radial pulses palpable and symmetrical Psychiatric: Normal affect, normal mood Skin: Dry, intact - Assessment and Plan (1) Acute respiratory failure with hypoxia and hypercapnia Current Visit: Yes Status: Acute Assessment and Plan: ASSESSMENT - Presented with hypoxemic and hypercapnic respiratory failure - Likely secondary to pneumonia; possible component of undiagnosed COPD - CXR: Minimal basilar atelectasis, R>L - ABG 03/22: 7.37/53/93/// - ABG 03/24: 7.43/42/107/// - CTA of chest: Small R pleural effusion with RLL consolidation - Today, patient is requiring O2 via nasal cannula, exhibits some signs of volume overload PLAN - Supplemental oxygen therapy as needed; maintain SPO2 greater than 92% - Overnight BiPAP qualification study - DuoNeb's, respiratory support - Incentive spirometry - Will order a one-time dose of Lasix 40 mg IV (2) Sepsis Current Visit: Yes Status: Acute Assessment and Plan: ASSESSMENT - Secondary to UTI, pneumonia - Continues to have leukocytosis - Urine culture positive for Escherichia coli, enterococcus faecalis - 1 out of 2 blood cultures positive for staph species, suspect skin akshat contaminant - Legionella and strep pneumonia urine antigens negative - Currently on Unasyn (3) Pneumonia Current Visit: Yes Status: Acute Assessment and Plan: ASSESSMENT - Chest x-ray on presentation demonstrated Minimal basilar atelectasis, R>L - Chest CTA: Small R pleural effusion with RLL consolidation - Sputum culture remains pending - MRSA swab, strep and legionella urine antigens negative PLAN - Continue Unasyn (4) UTI (urinary tract infection) Current Visit: Yes Status: Acute Assessment and Plan: ASSESSMENT - Urinalysis on presentation was suggestive of urinary tract infection - Urine CX grew melgar-sensitive Escherichia coli, Enterococcus faecalis PLAN - Unasyn (5) HTN (hypertension) Current Visit: Yes Status: Chronic Assessment and Plan: - Resume home medications (6) DVT prophylaxis Current Visit: No Status: Acute Assessment and Plan: - SQ heparin - Time Spent with Patient Total time spent is greater than 50% in coordination of care (as documented) at patient's floor/unit and/or counseling patient: Internal Medicine: Result - Labs CBC & Chem 7: 03/27/19 05:31 03/27/19 05:31 - ABG Interpretation ABG results: ABG ABG pH 7.43 pH Units (7.32-7.45) 03/24/19 03:43 ABG pCO2 42 mmHg (35-45) 03/24/19 03:43 ABG pO2 107 mmHg (85-104) H 03/24/19 03:43 ABG O2 Saturation 98 % (95-98) 03/24/19 03:43 PT/INR, D-dimer PT 11.1 Seconds (9.4-12.1) 03/22/19 10:11 Consult Discharge Plan - Plan Referrals: NONE,PCP [Primary Care Provider] - Megan Castro DO [Partnered Physician] - (Patient is from [facility] no PCP appointment needed) <Marcos Sheridan - Last Filed: 03/28/19 13:47> Hospitalist Progress Note - Encounter Date of Encounter: 03/28/19 - Exam Vitals: Temp Pulse Resp BP Pulse Ox 98.4 F 101 22 145/84 94 03/28/19 10:51 03/28/19 10:51 03/28/19 10:51 03/28/19 10:51 03/28/19 10:51 - Time Spent with Patient Total time spent is greater than 50% in coordination of care (as documented) at patient's floor/unit and/or counseling patient: Internal Medicine: Result - Labs CBC & Chem 7: 03/27/19 05:31 03/28/19 09:30 Labs: BMP 03/28/19 09:30 Sodium 148 H Potassium 3.3 L Chloride 107 Carbon Dioxide 33 H BUN 16 Creatinine 0.52 L Glucose 110 H Calcium 8.9 - ABG Interpretation ABG results: ABG ABG pH 7.43 pH Units (7.32-7.45) 03/24/19 03:43 ABG pCO2 42 mmHg (35-45) 03/24/19 03:43 ABG pO2 107 mmHg (85-104) H 03/24/19 03:43 ABG O2 Saturation 98 % (95-98) 03/24/19 03:43 PT/INR, D-dimer PT 11.1 Seconds (9.4-12.1) 03/22/19 10:11 - Attending Attestation I examined this patient and my medical decision-making was reviewed with the Resident Physician. I agree with the documented findings, disposition and treatment plan as described except to the extent set forth below. Patient has slight hypoxia overnight per night nurses, then requires oxygen. DUring daytime while patient is awake, there is no hypoxic episodes. Will see if patient can tolerate I.S. get chest x-ray, give dose of IV Lasix. Dispo will be held until resp status improved. No acute distress. <Toi Griffin - Last Filed: 03/28/19 13:33> (2) Sepsis Qualifiers: Sepsis type: sepsis due to unspecified organism Qualified Code(s): A41.9 - Sepsis, unspecified organism (3) Pneumonia Qualifiers: Pneumonia type: due to unspecified organism Laterality: right Lung location: lower lobe of lung Qualified Code(s): J18.1 - Lobar pneumonia, unspecified organism (4) UTI (urinary tract infection) Qualifiers: Urinary tract infection type: acute cystitis Hematuria presence: without hematuria Qualified Code(s): N30.00 - Acute cystitis without hematuria (5) HTN (hypertension) Qualifiers: Hypertension type: unspecified Qualified Code(s): I10 - Essential (primary) hypertension
[2019-03-28 10:05] LABS: BUN/Creatinine Ratio 31 (6-26); Blood Urea Nitrogen 16 mg/dL (8-23); Calcium 8.9 mg/dL (8.6-10.3); Carbon Dioxide 33 mEq/L (23-29); Chloride 107 mEq/L (98-107); Glucose 110 mg/dL (70-105); Magnesium 1.3 mg/dL (1.6-2.6); Osmolality,Calculated 308 (280-300); Potassium 3.3 mEq/L (3.5-5.1); Sodium 148 mEq/L (136-145); eGFR For Non-African Americans > 60 (> 60)
[2019-03-28] MEDS: Benzonatate 100 MG CAPSULE PO PRN (10:24)
[2019-03-28] MEDS: amLODIPine 5 MG TABLET PO SCH (10:24)
[2019-03-28] MEDS: *HR* LORazepam 0.5 MG TABLET PO SCH (10:25)
[2019-03-28] MEDS: Aspirin 81 MG TAB.CHEW PO SCH (10:25)
[2019-03-28] MEDS: Multivit/Ca/Min/Fe/FA 1 TAB TABLET PO SCH (10:25)
[2019-03-28] MEDS: Lactobacillus 1 EACH CAP.SPRINK PO SCH ×2 (10:25→21:11)
[2019-03-28] MEDS: Nystatin Cream 15 GM TUBE TP SCH ×2 (10:26→21:12)
[2019-03-28] MEDS: traMADol 50 MG TABLET PO PRN (10:26)
[2019-03-28] MEDS ORDERED: Potassium Chloride Elixir 20 MEQ/15 ML UDC PO ONE (13:38)
[2019-03-28] MEDS ORDERED: Magnesium Sulfate 2 GM in D5% in Water 100 ML IVPB ONE (13:38)
[2019-03-29] MEDS: *HR* Heparin 5,000 UNIT/ML VIAL SQ SCH (06:46)
[2019-03-29] MEDS: Ampicillin/Sulbactam 1,500 MG in 0.9 % Sodium Chloride Mini Bag 100 ML IVPB SCH (06:46)
[2019-03-29] MEDS: hydrALAZINE 25 MG TABLET PO SCH ×2 (08:35)
[2019-03-29] MEDS: *HR* LORazepam 0.5 MG TABLET PO SCH (08:35)
[2019-03-29] MEDS: traMADol 50 MG TABLET PO PRN (08:35)
[2019-03-29] MEDS: Multivit/Ca/Min/Fe/FA 1 TAB TABLET PO SCH (08:36)
[2019-03-29] MEDS: Aspirin 81 MG TAB.CHEW PO SCH (08:36)
[2019-03-29] MEDS: Nystatin Cream 15 GM TUBE TP SCH (08:36)
[2019-03-29] MEDS: Lactobacillus 1 EACH CAP.SPRINK PO SCH (08:36)
[2019-03-29 08:55] LABS: BUN/Creatinine Ratio 25 (6-26); Blood Urea Nitrogen 16 mg/dL (8-23); Carbon Dioxide 34 mEq/L (23-29); Chloride 108 mEq/L (98-107); Glucose 112 mg/dL (70-105); Osmolality,Calculated 306 (280-300); Potassium 4.5 mEq/L (3.5-5.1); Sodium 147 mEq/L (136-145); eGFR For Non-African Americans > 60 (> 60)
[2019-03-29] MEDS ORDERED: Magnesium Oxide 400 MG TABLET PO SCH (09:00)
[2019-03-29] MEDS ORDERED: amLODIPine 5 MG TABLET PO SCH (09:00)
--- NOTE | 2019-03-29 09:39 | Discharge Summary ---
<Toi Griffin - Last Filed: 03/29/19 10:53> - NOTES TO OUTPATIENT PROVIDER Notes to Outpatient Provider: Follow-up with PCP in 1-2 weeks. Patient will need a follow-up CBC and chest x-ray in the outpatient setting within 2 weeks after discharge. Orders not resulted at time of discharge: Pending orders 03/22/19 19:39 Culture,Sputum with Gram Stain [RM] Routine 03/23/19 09:00 EKG [ECG 12 lead ECG] [ECG] Routine 03/29/19 08:45 Procalcitonin Routine Date of Encounter: 03/29/19 Time of Encounter: 09:38 - Discharge Diagnosis (1) Acute respiratory failure with hypoxia and hypercapnia Priority: Primary Status: Acute (2) Sepsis Priority: Secondary Status: Acute Qualifiers: Sepsis type: sepsis due to unspecified organism Qualified Code(s): A41.9 - Sepsis, unspecified organism (3) Pneumonia Priority: Secondary Status: Acute Qualifiers: Pneumonia type: due to unspecified organism Laterality: right Lung location: lower lobe of lung Qualified Code(s): J18.1 - Lobar pneumonia, unspecified organism (4) UTI (urinary tract infection) Priority: Secondary Status: Acute Qualifiers: Urinary tract infection type: acute cystitis Hematuria presence: without hematuria Qualified Code(s): N30.00 - Acute cystitis without hematuria (5) HTN (hypertension) Priority: Secondary Status: Chronic Qualifiers: Hypertension type: unspecified Qualified Code(s): I10 - Essential (primary) hypertension (6) DVT prophylaxis Priority: Secondary Status: Acute Hospital course: Ms. Rolle is a 83-year-old female with a PMH of GERD, HTN, CAD, HFpEF, aortic stenosis, anxiety, and depression who presented to [facility] on 03/22/19 with unresponsiveness and respiratory failure. She was accompanied by family. They reported that since she was admitted in January for urinary tract infection, patient had become increasingly weak and fatigued. In the days leading up to admission, she had reportedly had hallucinations of seeing things in the air that were not there and being concerned about people behind her. On date of presentation, she had increased confusion to the point of unresponsiveness at her nursing facility, unable to speak or wake up. Upon arrival to the emergency department, patients vital signs were as follows: Temperature 98.3, pulse 82, respiratory rate 18, blood pressure 168/74, and O2 saturation 99%. Labs demonstrated an elevated white count at 12.2, low potassium at 3.3, elevated troponin 0.07. Arterial blood gas: 7.37/53/93/31/32/97. Urine tox screen was negative. Urinalysis demonstrated a likely UTI. CXR demonstrated bibasilar atelectasis, greater on the right than on the left. CT scan of the head showed no definitive acute intracranial abnormality, evidence of encephalomalacia. Blood and urine cultures were drawn. EKG showed NSR, rate 82, ST depression in leads 1 and aVL which is new from previous as well as flat T waves in V4 through V6. In the emergency department, she was not responsive to verbal stimuli. On transit, her oxygen saturation was 83%. She was started on BiPAP. This caused her mentation to slightly improved. She was admitted for altered mentation secondary to hypercapnia and UTI. Pulmonology was consulted. A CT scan of the chest was obtained, which showed no evidence of acute PE, evidence of pulmonary hypertension, small, right-sided pleural effusion with right lower lobe basal consolidation, pneumonia versus atelectasis. Initially, she was started on Zosyn and doxycycline. Urine culture grew Escherichia coli and Enterococcus faecalis. Patient was initially treated with BiPAP, and then was weaned off gradually. She was then successfully weaned off oxygen via nasal cannula altogether. During this time, patients diet was slowly advanced. On date of discharge, she is tolerating a regular diet well. Mental status appears improved. She is alert and oriented 3. She denies having any shortness of breath, cough, wheezing, or sputum production. Lung sounds are improved. She is currently on day 8 of antibiotics; she will be discharged on 2 more days of Augmentin. - Time Spent with Patient Total time spent providing and/or coordinating discharge services: - Discharge Medications Prescriptions: New Amoxicillin/Clavulanate [Augmentin] 875 mg PO BIDWM #4 tablet Continued Pantoprazole Sodium [Protonix] 40 mg PO DAILY Aspirin 81 mg PO DAILY Losartan Potassium [Cozaar] 50 mg PO BID #60 tab Metoprolol [Lopressor] 25 mg PO BID Lactobacillus Acidophilus [Acidophilus] 1 tab PO BID Benzonatate 100 mg PO DAILY PRN PRN Reason: Cough Guaifenesin [Mucinex] 600 mg PO BID PRN PRN Reason: Congestion Docusate [Colace] 100 mg PO BID PRN capsule PRN Reason: Constipation hydrALAZINE [HydrALAZINE] 50 mg PO Q8HR Amlodipine Besylate 7.5 mg PO DAILY Multivit-Min/FA/Lycopen/Lutein [A Thru Z Select Multivit Tab] 1 tab PO DAILY Acetaminophen [Tylenol] 650 mg PO Q6HR PRN tablet PRN Reason: Mild Pain/Fever Bisacodyl [Dulcolax] 10 mg RC DAILY PRN PRN Reason: Constipation Sertraline [Zoloft] 50 mg PO DAILY Ascorbic Acid [Vitamin C with Afshan Hips] 500 mg PO DAILY Tramadol HCl [Ultram] 50 mg PO Q12H PRN 4 Days #5 tablet PRN Reason: Pain MOM Conc [MILK OF MAGNESIA conc] 30 ml PO DAILY PRN PRN Reason: Constipation LORazepam [Ativan] 0.5 mg PO DAILY Nystatin Cream [Mycostatin Cream] 1 applic TP BID Home Medications: Pantoprazole Sodium [Protonix] 40 mg PO DAILY 10/12/16 [History] Aspirin 81 mg PO DAILY 12/01/16 [History] Losartan Potassium [Cozaar] 50 mg PO BID #60 tab 12/03/16 [Rx] Metoprolol [Lopressor] 25 mg PO BID 11/04/17 [History] Benzonatate 100 mg PO DAILY PRN 12/02/17 [History] Guaifenesin [Mucinex] 600 mg PO BID PRN 12/02/17 [History] Lactobacillus Acidophilus [Acidophilus] 1 tab PO BID 12/02/17 [History] Docusate [Colace] 100 mg PO BID PRN capsule 12/21/17 [Rx] hydrALAZINE [HydrALAZINE] 50 mg PO Q8HR 02/13/18 [History] Amlodipine Besylate 7.5 mg PO DAILY 04/07/18 [History] Multivit-Min/FA/Lycopen/Lutein [A Thru Z Select Multivit Tab] 1 tab PO DAILY 04/07/18 [History] Acetaminophen [Tylenol] 650 mg PO Q6HR PRN tablet 04/14/18 [Rx] Ascorbic Acid [Vitamin C with Afshan Hips] 500 mg PO DAILY 05/06/18 [History] Bisacodyl [Dulcolax] 10 mg RC DAILY PRN 05/06/18 [History] Sertraline [Zoloft] 50 mg PO DAILY 05/06/18 [History] Tramadol HCl [Ultram] 50 mg PO Q12H PRN 4 Days #5 tablet 05/10/18 [Rx] LORazepam [Ativan] 0.5 mg PO DAILY 03/22/19 [History] MOM Conc [MILK OF MAGNESIA conc] 30 ml PO DAILY PRN 03/22/19 [History] Nystatin Cream [Mycostatin Cream] 1 applic TP BID 03/22/19 [History] Amoxicillin/Clavulanate [Augmentin] 875 mg PO BIDWM #4 tablet 03/29/19 [Rx] Allergies/Adverse Reactions: Allergy/AdvReac Type Severity Reaction Status Date / Time aspirin AdvReac See Verified 02/01/19 19:43 Comments Date of admission: 03/22/19 18:06 Primary care physician: PCP NONE Consults: 03/22/19 18:58 Consult to Slate Splitting Supervisor [CONS] Routine Reason for SW Consult: [facility] 03/24/19 10:24 Consult to Invasive Line Access Team [CONS] Routine Reason for Consult: limited vascular acess Line Type: EPIV Discharging clinician: Toi Griffin Anticipated date of discharge: 03/29/19 - Constitutional Vitals: Temp Pulse Resp BP Pulse Ox 98.6 F 68 16 136/83 98 03/29/19 07:09 03/29/19 07:09 03/29/19 07:09 03/29/19 07:09 03/29/19 08:47 Exam: General: No acute distress; somnolent Head: atraumatic, normocephalic Eye: PERRL, EOMI, conjuntiva pink, sclera anicteric Neck: Supple, trachea midline; No lymphadenopathy Respiratory: Diminished breath sounds b/l; Prolonged expiratory phase, bibasilar crackles Cardiovascular: RRR, +S1, +S2; no murmurs, rubs, gallops Abdomen: Soft, nontender Extremities: Trace pedal edema bilaterally, radial pulses palpable and symmetrical Psychiatric: Normal affect, normal mood Skin: Dry, intact - Patient Status Disposition: Transfer SNF Condition: Fair Overall status at discharge: patient is progressing back to baseline - Discharge Instructions Follow Up With: NONE,PCP [Primary Care Provider] - Megan Castro DO [Partnered Physician] - (Patient is from [facility] no PCP appointment needed) Forms: ED Satisfaction Letter - Diet and Activity Activity: increase activity as tolerated Diet: advance to your usual diet <Marcos Sheridan - Last Filed: 03/29/19 22:23> Orders not resulted at time of discharge: Pending orders 03/22/19 19:39 Culture,Sputum with Gram Stain [RM] Routine 03/23/19 09:00 EKG [ECG 12 lead ECG] [ECG] Routine Date of Encounter: 03/29/19 Hospital course: Ms. Rolle is a 83 year old female - Time Spent with Patient Total time spent providing and/or coordinating discharge services: Date of admission: 03/22/19 18:06 Primary care physician: PCP NONE Consults: 03/22/19 18:58 Consult to Slate Splitting Supervisor [CONS] Routine Reason for SW Consult: [facility] 03/24/19 10:24 Consult to Invasive Line Access Team [CONS] Routine Reason for Consult: limited vascular acess Line Type: EPIV - Constitutional Vitals: Temp Pulse Resp BP Pulse Ox 98.4 F 72 18 128/82 95 03/29/19 11:41 03/29/19 11:41 03/29/19 11:41 03/29/19 11:41 03/29/19 11:41 - Attending Attestation I examined this patient and my medical decision-making was reviewed with the Resident Physician. I agree with the documented findings, disposition and treatment plan as described except to the extent set forth below. Discharge time 45 min.
--- NOTE | 2019-03-29 10:55 | Physician Discharge Referral ---
[facility]Care Referral Info Provider in Charge after Transfer: PCP Institutional Level of Care: Skilled - Diagnosis (1) Acute respiratory failure with hypoxia and hypercapnia Priority: Primary Status: Acute (2) Sepsis Priority: Secondary Status: Acute (3) Pneumonia Priority: Secondary Status: Acute (4) UTI (urinary tract infection) Priority: Secondary Status: Acute (5) HTN (hypertension) Priority: Secondary Status: Chronic (6) DVT prophylaxis Priority: Secondary Status: Acute - Transfer Medications Prescriptions: Amoxicillin/Clavulanate [Augmentin] 875 mg PO BIDWM #4 tablet Home Medications: Pantoprazole Sodium [Protonix] 40 mg PO DAILY 10/12/16 [History] Aspirin 81 mg PO DAILY 12/01/16 [History] Losartan Potassium [Cozaar] 50 mg PO BID #60 tab 12/03/16 [Rx] Metoprolol [Lopressor] 25 mg PO BID 11/04/17 [History] Benzonatate 100 mg PO DAILY PRN 12/02/17 [History] Guaifenesin [Mucinex] 600 mg PO BID PRN 12/02/17 [History] Lactobacillus Acidophilus [Acidophilus] 1 tab PO BID 12/02/17 [History] Docusate [Colace] 100 mg PO BID PRN capsule 12/21/17 [Rx] hydrALAZINE [HydrALAZINE] 50 mg PO Q8HR 02/13/18 [History] Amlodipine Besylate 7.5 mg PO DAILY 04/07/18 [History] Multivit-Min/FA/Lycopen/Lutein [A Thru Z Select Multivit Tab] 1 tab PO DAILY 04/07/18 [History] Acetaminophen [Tylenol] 650 mg PO Q6HR PRN tablet 04/14/18 [Rx] Ascorbic Acid [Vitamin C with Afshan Hips] 500 mg PO DAILY 05/06/18 [History] Bisacodyl [Dulcolax] 10 mg RC DAILY PRN 05/06/18 [History] Sertraline [Zoloft] 50 mg PO DAILY 05/06/18 [History] Tramadol HCl [Ultram] 50 mg PO Q12H PRN 4 Days #5 tablet 05/10/18 [Rx] LORazepam [Ativan] 0.5 mg PO DAILY 03/22/19 [History] MOM Conc [MILK OF MAGNESIA conc] 30 ml PO DAILY PRN 03/22/19 [History] Nystatin Cream [Mycostatin Cream] 1 applic TP BID 03/22/19 [History] Amoxicillin/Clavulanate [Augmentin] 875 mg PO BIDWM #4 tablet 03/29/19 [Rx] Allergies/Adverse Reactions: Allergy/AdvReac Type Severity Reaction Status Date / Time aspirin AdvReac See Verified 02/01/19 19:43 Comments - Respiratory Orders Smoking Cessation: Smoking cessation has been advised. For more information, call the [place] Tobacco Quit Line at 6-061-NFSNNOW. CERTIFICATION: I certify that the transfer of the above named patient to an Extended Care Facility is necessary for the continuing treatment of the diagnosis listed. The above information is true and accurate reflection of patient's current condition. Confidential - Redisclosure prohibited without a patient's written consent.
[2019-03-29 11:47] VITALS: BP 128/82
[2019-03-29] MEDS ORDERED: Ampicillin/Sulbactam 3,000 MG in 0.9 % Sodium Chloride Mini Bag 100 ML IVPB SCH (12:00)
== END 2019-03-29 13:46 | DRG 871 ==
LOC: 2NNU 09:52 → EMEROOARM 09:52 → SUATTDRO 18:06 → 2NNU 18:50 → 2ANU 03-26 20:21
PROVIDERS: ADMIT Internal Medicine Nephrology; ATTEND Student in an Organized Health Care Education/Training Program

== ENCOUNTER 2019-06-17 16:31 | Inpatient (IN) ==
--- NOTE | 2019-06-17 17:26 | Emergency Department Note ---
Disposition Clinical Impression: Confusion, Elevated troponin Disposition: Admitted As Inpatient Condition: Fair Time of Disposition: 12:05 General Adult HPI - General Chief complaint: ED Altered Mental Status Stated complaint: altered mental status Time Seen by Provider: 06/17/19 17:04 Source: patient, EMS Limitations: no limitations - History of Present Illness Pain Scale: 0 - Related Data Home Medications Medication Instructions Recorded Confirmed Pantoprazole Sodium [Protonix] 40 mg PO DAILY 10/12/16 06/17/19 Aspirin 81 mg PO DAILY 12/01/16 06/17/19 Metoprolol [Lopressor] 25 mg PO BID 11/04/17 06/17/19 Lactobacillus Acidophilus 1 tab PO 0800,1600 12/02/17 06/17/19 [Acidophilus] Multivit-Min/FA/Lycopen/Lutein [A 1 tab PO DAILY 04/07/18 06/17/19 Thru Z Select Multivit Tab] Ascorbic Acid [Vitamin C with Afshan 500 mg PO DAILY 05/06/18 06/17/19 Hips] Sertraline [Zoloft] 100 mg PO DAILY 05/06/18 06/17/19 Nystatin Cream [Mycostatin Cream] 1 applic TP BID 03/22/19 06/17/19 Amlodipine Besylate 7.5 mg PO DAILY 05/03/19 06/17/19 Ipratropium/Albuterol Neb [Duoneb] 3 ml IH Q6HR PRN 05/03/19 06/17/19 Menthol [Biofreeze] 1 appl TP 2100 05/03/19 06/17/19 Acetaminophen [Tylenol] 325 mg PO Q6HR PRN 06/17/19 06/17/19 Fluconazole [Diflucan] 200 mg PO 1600 06/17/19 06/17/19 Mirtazapine 7.5 mg PO 199906/17/19 06/17/19 Potassium Chloride [K-Tab ER] 10 meq PO 0800,1700 06/17/19 06/17/19 Previous Rx's Medication Instructions Recorded Losartan Potassium [Cozaar] 50 mg PO BID #60 tab 12/03/16 Ciprofloxacin HCl [Cipro] 500 mg PO BID 10 Days #20 tablet 06/20/19 Furosemide [Lasix] 40 mg PO DAILY #30 tablet 06/20/19 LORazepam [Ativan] 0.25 mg PO QDPC 7 Days #7 tablet 06/20/19 Tramadol HCl [Ultram] 50 mg PO Q12H PRN 4 Days #5 tablet 06/20/19 Allergies Allergy/AdvReac Type Severity Reaction Status Date / Time aspirin AdvReac See Verified 06/17/19 22:09 Comments Limitations: ROS unobtainable due to patients medical condition Past Medical History - Past Medical History Medical history: Reports: CHF, coronary artery disease, dementia, GERD, hypertension, myocardial infarction, renal disease, seizures Surgical history: Reports: appendectomy, hip replacement (left hip fracture/re pair), other (hemorrhoidectomy) Psychiatric history: Reports: anxiety, depression - Social History Smoking Status: Never smoker Smokeless Tobacco Status: No Alcohol use: Reports: none Drug use: Reports: none Physical Exam CONSTITUTIONAL: Breathing comfortably but the oxygen saturation is 91%, skin color is good, she does know the year but does not know the month, no facial asymmetry HEAD: Normocephalic; atraumatic. EYES: PERRL, no scleral icterus. NOSE: The nose is normal in appearance without rhinorrhea RESP: Normal chest excursion with respiration; breath sounds with bilateral crackles worse on the right CARD: Regular rhythm, without murmurs, rub or gallop ABD: Non-distended; non-tender, soft,without rigidity, rebound or guarding SKIN: Normal for age and race; warm and dry; no apparent lesions - General Limitations: no limitations General appearance: alert Course Vital Signs Temperature 97.5 F L 06/17/19 16:40 Pulse Rate 90 06/17/19 16:40 Respiratory Rate 18 06/17/19 16:40 Blood Pressure 172/76 06/17/19 16:40 O2 Sat by Pulse Oximetry 91 06/17/19 16:40 Temperature 98.5 F 06/20/19 12:01 Pulse Rate 99 06/20/19 12:01 Respiratory Rate 16 06/20/19 12:01 Blood Pressure 145/89 06/20/19 12:01 O2 Sat by Pulse Oximetry 97 06/20/19 12:01 Oxygen Delivery Oxygen Delivery Room Air Medical Decision Making - MDM Narrative Medical decision making narrative: Labs are ordered plus testing for urine, also blood lactate level, head CT and chest x-ray. Results pending. 172 - Medical Records Medical records reviewed: Yes I reviewed the patient's medical records. - Lab Data Result diagrams: 06/20/19 04:23 06/20/19 04:23 Lab Results 06/17/19 06/17/19 06/17/19 Range/Units 17:31 17:31 17:31 WBC 11.0 (4.3-11.1) K/mcL RBC 2.96 L (3.82-4.97) M/mcL Hgb 9.3 L (11.5-15.4) g/dL Hct 31.2 L (35.3-44.9) % MCV 105.4 H (83.0-100.0) fL MCH 31.4 (28.0-33.3) pg MCHC 29.8 L (31.6-35.5) g/dL RDW 14.9 H (11.5-14.5) % Plt Count 323 (140-400) K/mcL MPV 9.8 (9.4-12.4) fL Immature Gran % 1.5 (0-4) % Seg Neutrophils % 71.4 % Lymphocytes % 18.6 % Monocytes % 7.4 % Eosinophils % 0.9 % Basophils % 0.2 % Neutrophils # 7.8 (1.6-8.9) K/mcL Lymphocytes # 2.0 (0.6-4.6) K/mcL Monocytes # 0.8 (0.0-1.3) K/mcL Eosinophils # 0.1 (0.0-0.6) K/mcL Basophils # 0.0 (0.0-0.2) K/mcL VBG pH (7.32-7.42) pH Units VBG pCO2 (41-51) mmHg VBG pO2 (25-50) mmHg VBG HCO3 (21-27) mEq/L Sodium 144 (136-145) mEq/L Potassium 3.4 L (3.5-5.1) mEq/L Chloride 100 (98-107) mEq/L Carbon Dioxide 35 H (23-29) mEq/L BUN 13 (8-23) mg/dL Creatinine 0.50 L (0.60-1.20) mg/dL Est GFR ( Amer) > 60 (> 60) Est GFR (Non-Af Amer) > 60 (> 60) BUN/Creatinine Ratio 26 (6-26) Glucose 85 (70-105) mg/dL Calculated Osmolality 297 (280-300) Lactic Acid (0.5-2.2) mmol/L Calcium 8.9 (8.6-10.3) mg/dL Total Bilirubin 0.3 (0.3-1.0) mg/dL Direct Bilirubin 0.1 (0.0-0.2) mg/dL Indirect Bilirubin 0.2 (0.0-1.2) mg/dL AST 16 (13-39) Units/L ALT 9 (7-52) Units/L Alkaline Phosphatase 80 (34-104) Units/L Ammonia 32 (16-53) mcmol/L Troponin I 0.07 H* (< 0.04) ng/mL Serum Total Protein 5.5 L (6.4-8.9) g/dL Albumin 3.0 L (3.5-5.7) g/dL Globulin 2.5 (2.4-3.5) g/dL Albumin/Globulin Ratio 1.2 (1.1-2.2) Urine Color (Yellow) Urine Clarity (Clear) Urine pH (5.0-8.0) pH Units Ur Specific Canones (1.010-1.025) Urine Protein (Neg-Trace) mg/dL Urine Glucose (UA) (Normal) mg/dL Urine Ketones (Negative) mg/dL Urine Blood (Negative) Urine Nitrite (Negative) Urine Bilirubin (Negative) Urine Urobilinogen (Normal) mg/dL Ur Leukocyte Esterase (Negative) Urine Microscopic RBC (0-3) per hpf Urine Microscopic WBC (0-3) per hpf Ur Squamous Epith Cells (None-Few) per lpf Calcium Oxalate Crystal Urine Bacteria (None-Few) per hpf Hyaline Casts (None-Few) per lpf Urine Yeast (None Seen) per hpf Ur Culture Indicated? (NO) Urine Opiates Screen (Yrgchf=835) ng/mL Ur Buprenorphine Scrn (Cutoff=5) ng/mL Ur Barbiturates Screen (Lhknag=663) ng/mL Ur Phencyclidine Scrn (Cutoff=25) ng/mL Ur Amphetamines Screen (Sllond=6521) ng/mL U Benzodiazepines Scrn (Kblnpb=324) ng/mL Urine Cocaine Screen (Cutoff= 300) ng/mL U Marijuana (THC) Screen (Cutoff = 50) ng/mL Ur Drug Screen Interp 06/17/19 06/17/1906/17/19 Range/Units 17:31 17:46 18:50 WBC (4.3-11.1) K/mcL RBC (3.82-4.97) M/mcL Hgb (11.5-15.4) g/dL Hct (35.3-44.9) % MCV (83.0-100.0) fL MCH (28.0-33.3) pg MCHC (31.6-35.5) g/dL RDW (11.5-14.5) % Plt Count (140-400) K/mcL MPV (9.4-12.4) fL Immature Gran % (0-4) % Seg Neutrophils % % Lymphocytes % % Monocytes % % Eosinophils % % Basophils % % Neutrophils # (1.6-8.9) K/mcL Lymphocytes # (0.6-4.6) K/mcL Monocytes # (0.0-1.3) K/mcL Eosinophils # (0.0-0.6) K/mcL Basophils # (0.0-0.2) K/mcL VBG pH 7.41 (7.32-7.42) pH Units VBG pCO2 58 H (41-51) mmHg VBG pO2 108 H (25-50) mmHg VBG HCO3 37 H (21-27) mEq/L Sodium (136-145) mEq/L Potassium (3.5-5.1) mEq/L Chloride (98-107) mEq/L Carbon Dioxide (23-29) mEq/L BUN (8-23) mg/dL Creatinine (0.60-1.20) mg/dL Est GFR ( Amer) (> 60) Est GFR (Non-Af Amer) (> 60) BUN/Creatinine Ratio (6-26) Glucose (70-105) mg/dL Calculated Osmolality (280-300) Lactic Acid 0.5 (0.5-2.2) mmol/L Calcium (8.6-10.3) mg/dL Total Bilirubin (0.3-1.0) mg/dL Direct Bilirubin (0.0-0.2) mg/dL Indirect Bilirubin (0.0-1.2) mg/dL AST (13-39) Units/L ALT (7-52) Units/L Alkaline Phosphatase (34-104) Units/L Ammonia (16-53) mcmol/L Troponin I (< 0.04) ng/mL Serum Total Protein (6.4-8.9) g/dL Albumin (3.5-5.7) g/dL Globulin (2.4-3.5) g/dL Albumin/Globulin Ratio (1.1-2.2) Urine Color Yellow (Yellow) Urine Clarity Cloudy A (Clear) Urine pH 5.5 (5.0-8.0) pH Units Ur Specific Canones 1.021 (1.010-1.025) Urine Protein 30 H (Neg-Trace) mg/dL Urine Glucose (UA) Normal (Normal) mg/dL Urine Ketones Trace H (Negative) mg/dL Urine Blood Negative (Negative) Urine Nitrite Negative (Negative) Urine Bilirubin Negative (Negative) Urine Urobilinogen Normal (Normal) mg/dL Ur Leukocyte Esterase Large H (Negative) Urine Microscopic RBC 0-3 (0-3) per hpf Urine Microscopic WBC TNTC H (0-3) per hpf Ur Squamous Epith Cells Few (None-Few) per lpf Calcium Oxalate Crystal Present Urine Bacteria None Seen (None-Few) per hpf Hyaline Casts Few (None-Few) per lpf Urine Yeast Many H (None Seen) per hpf Ur Culture Indicated? YES A (NO) Urine Opiates Screen (Ygihau=920) ng/mL Ur Buprenorphine Scrn (Cutoff=5) ng/mL Ur Barbiturates Screen (Vhhyha=593) ng/mL Ur Phencyclidine Scrn (Cutoff=25) ng/mL Ur Amphetamines Screen (Cjipar=2643) ng/mL U Benzodiazepines Scrn (Sooatf=392) ng/mL Urine Cocaine Screen (Cutoff= 300) ng/mL U Marijuana (THC) Screen (Cutoff = 50) ng/mL Ur Drug Screen Interp 06/17/19 Range/Units 18:50 WBC (4.3-11.1) K/mcL RBC (3.82-4.97) M/mcL Hgb (11.5-15.4) g/dL Hct (35.3-44.9) % MCV (83.0-100.0) fL MCH (28.0-33.3) pg MCHC (31.6-35.5) g/dL RDW (11.5-14.5) % Plt Count (140-400) K/mcL MPV (9.4-12.4) fL Immature Gran % (0-4) % Seg Neutrophils % % Lymphocytes % % Monocytes % % Eosinophils % % Basophils % % Neutrophils # (1.6-8.9) K/mcL Lymphocytes # (0.6-4.6) K/mcL Monocytes # (0.0-1.3) K/mcL Eosinophils # (0.0-0.6) K/mcL Basophils # (0.0-0.2) K/mcL VBG pH (7.32-7.42) pH Units VBG pCO2 (41-51) mmHg VBG pO2 (25-50) mmHg VBG HCO3 (21-27) mEq/L Sodium (136-145) mEq/L Potassium (3.5-5.1) mEq/L Chloride (98-107) mEq/L Carbon Dioxide (23-29) mEq/L BUN (8-23) mg/dL Creatinine (0.60-1.20) mg/dL Est GFR ( Amer) (> 60) Est GFR (Non-Af Amer) (> 60) BUN/Creatinine Ratio (6-26) Glucose (70-105) mg/dL Calculated Osmolality (280-300) Lactic Acid (0.5-2.2) mmol/L Calcium (8.6-10.3) mg/dL Total Bilirubin (0.3-1.0) mg/dL Direct Bilirubin (0.0-0.2) mg/dL Indirect Bilirubin (0.0-1.2) mg/dL AST (13-39) Units/L ALT (7-52) Units/L Alkaline Phosphatase (34-104) Units/L Ammonia (16-53) mcmol/L Troponin I (< 0.04) ng/mL Serum Total Protein (6.4-8.9) g/dL Albumin (3.5-5.7) g/dL Globulin (2.4-3.5) g/dL Albumin/Globulin Ratio (1.1-2.2) Urine Color (Yellow) Urine Clarity (Clear) Urine pH (5.0-8.0) pH Units Ur Specific Canones (1.010-1.025) Urine Protein (Neg-Trace) mg/dL Urine Glucose (UA) (Normal) mg/dL Urine Ketones (Negative) mg/dL Urine Blood (Negative) Urine Nitrite (Negative) Urine Bilirubin (Negative) Urine Urobilinogen (Normal) mg/dL Ur Leukocyte Esterase (Negative) Urine Microscopic RBC (0-3) per hpf Urine Microscopic WBC (0-3) per hpf Ur Squamous Epith Cells (None-Few) per lpf Calcium Oxalate Crystal Urine Bacteria (None-Few) per hpf Hyaline Casts (None-Few) per lpf Urine Yeast (None Seen) per hpf Ur Culture Indicated? (NO) Urine Opiates Screen Negative (Lbxpbg=608) ng/mL Ur Buprenorphine Scrn Negative (Cutoff=5) ng/mL Ur Barbiturates Screen Negative (Bgflsa=263) ng/mL Ur Phencyclidine Scrn Negative (Cutoff=25) ng/mL Ur Amphetamines Screen Negative (Jikxum=1435) ng/mL U Benzodiazepines Scrn Negative (Ywgdds=483) ng/mL Urine Cocaine Screen Negative (Cutoff= 300) ng/mL U Marijuana (THC) Screen Negative (Cutoff = 50) ng/mL Ur Drug Screen Interp See Below Attestation Statement - Attestation Attestation: The patient is only able to give limited history secondary to her altered consciousness, the stories that she came from a extended care facility and 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 She does have an indwelling Andrade. I did review the previous record including culture that was done just over 1 week ago. The patient is only able to give limited history. She does not know why she is here. I ask about pain she states she hurts all over. She denies any fever or vomiting but the history is unreliable social history: Extended care facility CONSTITUTIONAL: Breathing comfortably but the oxygen saturation is 91%, skin color is good, she does know the year but does not know the month, no facial asymmetry HEAD: Normocephalic; atraumatic. EYES: PERRL, no scleral icterus. NOSE: The nose is normal in appearance without rhinorrhea RESP: Normal chest excursion with respiration; breath sounds with bilateral crackles worse on the right CARD: Regular rhythm, without murmurs, rub or gallop ABD: Non-distended; non-tender, soft,without rigidity, rebound or guarding SKIN: Normal for age and race; warm and dry; no apparent lesions Labs are ordered plus testing for urine, also blood lactate level, head CT and chest x-ray. Results pending. 1726 I did review the EKG showing normal sinus rhythm with rate of 88 and without evidence of acute ischemia or arrhythmia. The patient does have a urinary tract infection and I did review the previous culture results the patient will be started on nasal as well she does have an elevated troponin and pleural effusions with an oxygen saturation of 91%. We will give her 2 L nasal cannula oxygen, monitor her with repeat troponins as well as cardiac monitoring as well as the IV antibiotic for the urinary tract infection. She does have altered level of consciousness. I did speak with her son who drove up here from [place]. Hospitalist is willy. 192
[2019-06-17 17:47] LABS: Basophils % 0.2 %; Eosinophils # 0.1 K/mcL (0.0-0.6); Eosinophils % 0.9 %; Hematocrit 31.2 % (35.3-44.9); Hemoglobin 9.3 g/dL (11.5-15.4); Immature Granulocytes % 1.5 % (0-4); Lymphocytes % 18.6 %; Mean Corpuscular HGB Conc 29.8 g/dL (31.6-35.5); Mean Corpuscular Hemoglobin 31.4 pg (28.0-33.3); Mean Corpuscular Volume 105.4 fL (83.0-100.0); Mean Platelet Volume 9.8 fL (9.4-12.4); Monocytes # 0.8 K/mcL (0.0-1.3); Monocytes % 7.4 %; Neutrophils # 7.8 K/mcL (1.6-8.9); Platelet Count 323 K/mcL (140-400); Red Blood Count 2.96 M/mcL (3.82-4.97); Red Cell Distribution Width 14.9 % (11.5-14.5); Segmented Neutrophils % 71.4 %
--- NOTE | 2019-06-17 17:57 | Emergency Department Note ---
Disposition Clinical Impression: Confusion, Elevated troponin Disposition: Admitted As Inpatient Condition: Fair Time of Disposition: 18:54 General Adult HPI - General Chief complaint: ED Altered Mental Status Stated complaint: altered mental status Time Seen by Provider: 06/17/19 17:04 Source: patient, EMS Mode of arrival: wheelchair Limitations: no limitations Nursing Notes Reviewed: Yes Vital Signs Reviewed: Yes - History of Present Illness HPI Narrative: 84-year-old female presents today from [facility] for confusion with concerns of urosepsis. Patient recently had a UTI with UCx that grew VRE and Adelaida. She was started on Amoxicillin 500mg PO TIB and received dose of diflucan. However, she gradually became confused and she was sent to the ED. She is accompanied by her son today, who reports that patient's baseline mentation is confused but talkative, and able to ambulate and answer questions. Patient is currently non-verbal, but able to follow basic verbal commands. Family does admit that her appetite has worsened over the last week, decreased urine output. Rest of history limited due to patient's mental status. Pt Subjective Complaint: confused Pain Scale: 0 - Related Data Home Medications Medication Instructions Recorded Confirmed Pantoprazole Sodium [Protonix] 40 mg PO DAILY 10/12/16 05/03/19 Aspirin 81 mg PO DAILY 12/01/16 05/03/19 Metoprolol [Lopressor] 25 mg PO BID 11/04/17 05/03/19 Benzonatate 100 mg PO DAILY PRN 12/02/17 05/03/19 Guaifenesin [Mucinex] 600 mg PO BID PRN 12/02/17 05/03/19 Lactobacillus Acidophilus 1 tab PO BID 12/02/17 05/03/19 [Acidophilus] Multivit-Min/FA/Lycopen/Lutein [A 1 tab PO DAILY 04/07/18 05/03/19 Thru Z Select Multivit Tab] Ascorbic Acid [Vitamin C with Afshan 500 mg PO DAILY 05/06/18 05/03/19 Hips] Bisacodyl [Dulcolax] 10 mg RC DAILY PRN 05/06/18 05/03/19 Sertraline [Zoloft] 50 mg PO DAILY 05/06/18 05/03/19 LORazepam [Ativan] 0.25 mg PO DAILY 03/22/19 05/03/19 MOM Conc [MILK OF MAGNESIA conc] 30 ml PO DAILY PRN 03/22/19 05/03/19 Nystatin Cream [Mycostatin Cream] 1 applic TP BID 03/22/19 05/03/19 Amlodipine Besylate 7.5 mg PO DAILY 05/03/19 05/03/19 Hydralazine HCl 50 mg PO Q8H 05/03/19 05/03/19 Ipratropium/Albuterol Neb [Duoneb] 3 ml IH Q6HR PRN 05/03/19 05/03/19 Menthol [Biofreeze] 1 appl TP DAILY 05/03/19 05/03/19 Acetaminophen [Tylenol] 325 mg PO Q6HR PRN 06/17/19 06/17/19 Amoxicillin [Amoxil] 500 mg PO 0800,1400,199906/17/19 06/17/19 Fluconazole [Diflucan] 200 mg PO 1600 06/17/19 06/17/19 Mirtazapine 7.5 mg PO 199906/17/19 06/17/19 Potassium Chloride [K-Tab ER] 10 meq PO 0800,1700 06/17/19 06/17/19 Previous Rx's Medication Instructions Recorded Losartan Potassium [Cozaar] 50 mg PO BID #60 tab 12/03/16 Docusate [Colace] 100 mg PO BID PRN capsule 12/21/17 Tramadol HCl [Ultram] 50 mg PO Q12H PRN 4 Days #5 tablet 05/10/18 Allergies Allergy/AdvReac Type Severity Reaction Status Date / Time aspirin AdvReac See Verified 06/17/19 22:09 Comments Review of Systems: Limited due to patient's mental status. Past Medical History - Past Medical History Medical history: Reports: CHF, coronary artery disease, dementia, GERD, hypertension, myocardial infarction, renal disease, seizures Surgical history: Reports: appendectomy, hip replacement (left hip fracture/repair), other (hemorrhoidectomy) Psychiatric history: Reports: anxiety, depression - Social History Smoking Status: Never smoker Smokeless Tobacco Status: No Alcohol use: Reports: none Drug use: Reports: none Physical Exam GCS 11, patient follows basic commands and opens eyes to name. - General Limitations: altered mental status - Head Head exam: atraumatic, normocephalic - Eye Eye exam: Present: PERRL - Chest Chest inspection: Present: normal inspection, symmetric chest wall rise - Respiratory Respiratory exam: Present: normal lung sounds bilaterally. Absent: respiratory distress, wheezes - Cardiovascular Cardiovascular exam: Present: regular rate, normal rhythm. Absent: systolic murmur - Abdominal Exam Abdominal exam: Present: soft, normal bowel sounds, other (catheter clean and dry. Urine bag empty. ). Absent: guarding, rebound, rigidity - Extremities Exam Extremities exam: Present: other (Bilateral UE purpura, RIght lower extremity ulceration with erythema and discharge) Course Course Narrative: 84-year-old female presents today with confusion for 1 week. Patient lives at [facility]. She had recent VRE and adelaida UTI and treated with amoxicillin and diflucan. However, her mental status has gradually worsened. She is hemodynamicall stable, GCS 11, which is below her baseline. EKG unremarkable. She does have one elevated troponin of 0.07. She has a known history of anemia. CXR, ammonia, BMP, LFT, lipase, VBG, Lactate, Coags, CT head unremarkable. Urinalysis confirms active UTI, now pending both urine culture and blood culture. We have started patient on one dose of Linezolid for VRE. Patient to be admitted for altered mental status in the setting of UTI, elevated troponin x 1. Hospitalist has accepted. Vital Signs Temperature 97.5 F L 06/17/19 16:40 Pulse Rate 90 06/17/19 16:40 Respiratory Rate 18 06/17/19 16:40 Blood Pressure 172/76 06/17/19 16:40 O2 Sat by Pulse Oximetry 91 06/17/19 16:40 Temperature 97.5 F L 06/17/19 16:40 Pulse Rate 93 06/17/19 18:46 Respiratory Rate 18 06/17/19 18:46 Blood Pressure 166/86 06/17/19 18:46 O2 Sat by Pulse Oximetry 96 06/17/19 18:46 Oxygen Delivery Oxygen Delivery Room Air Medical Decision Making - Medical Records Medical records reviewed: Yes I reviewed the patient's medical records. - Lab Data Lab results reviewed: Yes I reviewed the patient's lab results. Result diagrams: 06/17/19 17:31 06/17/19 17:31 Lab Results 06/17/19 06/17/19 06/17/19 Range/Units 17:31 17:31 17:31 WBC 11.0 (4.3-11.1) K/mcL RBC 2.96 L (3.82-4.97) M/mcL Hgb 9.3 L (11.5-15.4) g/dL Hct 31.2 L (35.3-44.9) % MCV 105.4 H (83.0-100.0) fL MCH 31.4 (28.0-33.3) pg MCHC 29.8 L (31.6-35.5) g/dL RDW 14.9 H (11.5-14.5) % Plt Count 323 (140-400) K/mcL MPV 9.8 (9.4-12.4) fL Immature Gran % 1.5 (0-4) % Seg Neutrophils % 71.4 % Lymphocytes % 18.6 % Monocytes % 7.4 % Eosinophils % 0.9 % Basophils % 0.2 % Neutrophils # 7.8 (1.6-8.9) K/mcL Lymphocytes # 2.0 (0.6-4.6) K/mcL Monocytes # 0.8 (0.0-1.3) K/mcL Eosinophils # 0.1 (0.0-0.6) K/mcL Basophils # 0.0 (0.0-0.2) K/mcL VBG pH (7.32-7.42) pH Units VBG pCO2 (41-51) mmHg VBG pO2 (25-50) mmHg VBG HCO3 (21-27) mEq/L Sodium 144 (136-145) mEq/L Potassium 3.4 L (3.5-5.1) mEq/L Chloride 100 (98-107) mEq/L Carbon Dioxide 35 H (23-29) mEq/L BUN 13 (8-23) mg/dL Creatinine 0.50 L (0.60-1.20) mg/dL Est GFR ( Amer) > 60 (> 60) Est GFR (Non-Af Amer) > 60 (> 60) BUN/Creatinine Ratio 26 (6-26) Glucose 85 (70-105) mg/dL Calculated Osmolality 297 (280-300) Lactic Acid (0.5-2.2) mmol/L Calcium 8.9 (8.6-10.3) mg/dL Total Bilirubin 0.3 (0.3-1.0) mg/dL Direct Bilirubin 0.1 (0.0-0.2) mg/dL Indirect Bilirubin 0.2 (0.0-1.2) mg/dL AST 16 (13-39) Units/L ALT 9 (7-52) Units/L Alkaline Phosphatase 80 (34-104) Units/L Ammonia 32 (16-53) mcmol/L Troponin I 0.07 H* (< 0.04) ng/mL Serum Total Protein 5.5 L (6.4-8.9) g/dL Albumin 3.0 L (3.5-5.7) g/dL Globulin 2.5 (2.4-3.5) g/dL Albumin/Globulin Ratio 1.2 (1.1-2.2) Ur Drug Screen Interp 06/17/19 06/17/19 06/17/19 Range/Units 17:31 17:46 18:50 WBC (4.3-11.1) K/mcL RBC (3.82-4.97) M/mcL Hgb (11.5-15.4) g/dL Hct (35.3-44.9) % MCV (83.0-100.0) fL MCH (28.0-33.3) pg MCHC (31.6-35.5) g/dL RDW (11.5-14.5) % Plt Count (140-400) K/mcL MPV (9.4-12.4) fL Immature Gran % (0-4) % Seg Neutrophils % % Lymphocytes % % Monocytes % % Eosinophils % % Basophils % % Neutrophils # (1.6-8.9) K/mcL Lymphocytes # (0.6-4.6) K/mcL Monocytes # (0.0-1.3) K/mcL Eosinophils # (0.0-0.6) K/mcL Basophils # (0.0-0.2) K/mcL VBG pH 7.41 (7.32-7.42) pH Units VBG pCO2 58 H (41-51) mmHg VBG pO2 108 H (25-50) mmHg VBG HCO3 37 H (21-27) mEq/L Sodium (136-145) mEq/L Potassium (3.5-5.1) mEq/L Chloride (98-107) mEq/L Carbon Dioxide (23-29) mEq/L BUN (8-23) mg/dL Creatinine (0.60-1.20) mg/dL Est GFR ( Amer) (> 60) Est GFR (Non-Af Amer) (> 60) BUN/Creatinine Ratio (6-26) Glucose (70-105) mg/dL Calculated Osmolality (280-300) Lactic Acid 0.5 (0.5-2.2) mmol/L Calcium (8.6-10.3) mg/dL Total Bilirubin (0.3-1.0) mg/dL Direct Bilirubin (0.0-0.2) mg/dL Indirect Bilirubin (0.0-1.2) mg/dL AST (13-39) Units/L ALT (7-52) Units/L Alkaline Phosphatase (34-104) Units/L Ammonia (16-53) mcmol/L Troponin I (< 0.04) ng/mL Serum Total Protein (6.4-8.9) g/dL Albumin (3.5-5.7) g/dL Globulin (2.4-3.5) g/dL Albumin/Globulin Ratio (1.1-2.2) Ur Drug Screen Interp See Below - Radiology Data Radiology results reviewed: Yes I reviewed the patient's radiology results. - EKG Data EKG #1 EKG attestation: Yes I reviewed and interpreted this EKG. EKG shows normal: sinus rhythm Rate: normal When compared to previous EKG there are: no significant changes Interpretation: no acute changes
[2019-06-17 17:58] LABS: VBG HCO3 37 mEq/L (21-27); VBG PCO2 58 mmHg (41-51); VBG PH 7.41 pH Units (7.32-7.42); VBG PO2 108 mmHg (25-50)
[2019-06-17 18:22] LABS: Alanine Aminotransferase 9 Units/L (7-52); Albumin/Globulin Ratio 1.2 (1.1-2.2); Alkaline Phosphatase 80 Units/L (34-104); Aspartate Amino Transferase 16 Units/L (13-39); BUN/Creatinine Ratio 26 (6-26); Bilirubin,Direct 0.1 mg/dL (0.0-0.2); Bilirubin,Indirect 0.2 mg/dL (0.0-1.2); Bilirubin,Total 0.3 mg/dL (0.3-1.0); Blood Urea Nitrogen 13 mg/dL (8-23); Calcium 8.9 mg/dL (8.6-10.3); Carbon Dioxide 35 mEq/L (23-29); Chloride 100 mEq/L (98-107); Globulin 2.5 g/dL (2.4-3.5); Glucose 85 mg/dL (70-105); Osmolality,Calculated 297 (280-300); Potassium 3.4 mEq/L (3.5-5.1); Sodium 144 mEq/L (136-145); Total Protein 5.5 g/dL (6.4-8.9); Troponin I 0.07 ng/mL (< 0.04); eGFR For African Americans > 60 (> 60); eGFR For Non-African Americans > 60 (> 60)
[2019-06-17 19:02] LABS: Bilirubin,Urine Negative (Negative); Blood,Urine Negative (Negative); Clarity,Urine Cloudy (Clear); Color,Urine Yellow (Yellow); Glucose,Urine (UA) Normal (Normal); Ketones,Urine Trace mg/dL (Negative); Leukocyte Esterase,Urine Large (Negative); Nitrite,Urine Negative (Negative); PH,Urine 5.5 pH Units (5.0-8.0); Protein,Urine 30 mg/dL (Neg-Trace); Specific Gravity,Urine 1.021 (1.010-1.025); Urobilinogen,Urine Normal (Normal)
[2019-06-17 19:05] LABS: Bacteria,Urine None Seen per hpf (None-Few); Squamous Epithelial Cell,Urine Few per lpf (None-Few); WBC,Urine TNTC per hpf (0-3)
[2019-06-17 19:10] LABS: Amphetamine Screen,Urine Negative ng/mL (Cutoff=1000); Barbiturate Screen,Urine Negative ng/mL (Cutoff=200); Benzodiazepines Screen,Urine Negative ng/mL (Cutoff=200); Cannabinoid Screen,Urine Negative ng/mL (Cutoff = 50); Cocaine Screen,Urine Negative ng/mL (Cutoff= 300); Opiate Screen,Urine Negative ng/mL (Cutoff=300); Phencyclidine Screen,Urine Negative ng/mL (Cutoff=25)
[2019-06-17 19:15] LABS: Calcium Oxalate Crystals,Urine Present; Yeast,Urine Many per hpf (None Seen)
[2019-06-17 19:16] LABS: Hyaline Casts,Urine Few per lpf (None-Few); RBC,Urine 0-3 per hpf (0-3)
[2019-06-17] MEDS ORDERED: Naloxone 0.4 MG/ML INJ IVP PRN (19:53)
[2019-06-17] MEDS ORDERED: Furosemide 40 MG/4 ML VIAL IVP ONE ×2 (20:54→21:45)
--- NOTE | 2019-06-17 20:57 | Internal Med History&Physical ---
Date of Encounter: 06/17/19 Time of Encounter: 20:57 Internal Medicine - H&P: HPI Chief complaint: Altered mental status History of present illness: Ms. Rolle is a 84 year old female with a past medical history of hypertension, diastolic CHF, CAD, aortic stenosis, chronic respiratory failure on home oxygen who presented from her long term due to change in mental status. Patient was lethargic and unable to provide detailed history, therefore much of the history was obtained from records and the patient's son was at bedside. She presents today from her nursing facility with reports of increased confusion over the past several days. Son reports this typically happens when her CO2 levels go up for has a UTI. On arrival patient was afebrile, hemodynamically stable saturating 98% on 2 L. Laboratory workup was relatively unremarkable. No significant leukocytosis. Patient has anemia but this appears to be chronic. No significant electrolyte abnormalities were noted. Patient was found to have a troponin of 0.07 which appears to be chronic. EKG was reviewed which showed no evidence of ST or T-wave changes concerning for ischemia. Upon initial VBG w as obtained which showed a PCO2 of 58. CT scan of the head was unremarkable. A chest x-ray was obtained which showed evidence of pulmonary edema with bilateral pleural effusions, which appears slightly worse when compared to previous chest x-ray. On my assessment, patient was alert oriented 3 though lethargic. An ABG was ordered stat which showed a PCO2 of 79, pH 7.33 and PO2 of 88. Urinalys is showed large leukocyte esterase. Patient was recently treated for a UTI with UCx growing VRE and Adelaida. She was started on Amoxicillin 500mg PO TIB and received dose of diflucan based on sensitivity studies. Patient was given a dose of linezolid in the ED. Patient currently on BiPAP. Per son, patient does not want to be intubated. Past Med Surg Social Fam HX - Past Medical History Medical history: CHF, coronary artery disease, dementia, GERD, hypertension, myocardial infarction, renal disease, seizures Additional medical history: falls Psychiatric history: anxiety, depression - Past Surgical History Surgical History: appendectomy, hip replacement (left hip fracture/repair), other (hemorrhoidectomy) Additional surgical history: left hip replacement - Social History Smoking Status: Never smoker Smokeless Tobacco Status: No Alcohol use: none Drug use: none - Family History Mother Family Member Ethnicity: Non- Living Status: Hx Family Cancer: Yes (Breast cancer) Father Family Member Ethnicity: Non- Living Status: Hx Family Cardiac Disorders: Yes (CVA) Hx Family Neuromuscular Disorders: Yes (CVA) Brother Adopted: No Family Member Ethnicity: Non- Living Status: Still Living Hx Family Cardiac Disorders: Yes Hx Family Respiratory Disorders: No Hx Family Cancer: Yes Hx Family GI Disorders: No Hx Family Endocrine Disorder: No Hx Family Neuromuscular Disorders: No Hx Family Neurologic Disorders: No Hx Family HEENT Disorders: No Hx Family Autoimmune Disorders: No Sister Adopted: No Family Member Ethnicity: Non- Living Status: Still Living Hx Family Cardiac Disorders: Yes Hx Family Respiratory Disorders: No Hx Family Cancer: Yes Hx Family GI Disorders: No Hx Family Endocrine Disorder: No Hx Family Neuromuscular Disorders: No Hx Family Neurologic Disorders: No Hx Family HEENT Disorders: No Hx Family Autoimmune Disorders: No Internal Medicine - H&P: Meds Pantoprazole Sodium [Protonix] 40 mg PO DAILY 10/12/16 [History] Aspirin 81 mg PO DAILY 12/01/16 [History] Losartan Potassium [Cozaar] 50 mg PO BID #60 tab 12/03/16 [Rx] Metoprolol [Lopressor] 25 mg PO BID 11/04/17 [History] Benzonatate 100 mg PO DAILY PRN 12/02/17 [History] Guaifenesin [Mucinex] 600 mg PO BID PRN 12/02/17 [History] Lactobacillus Acidophilus [Acidophilus] 1 tab PO 0800,1600 12/02/17 [History] Docusate [Colace] 100 mg PO BID PRN capsule 12/21/17 [Rx] Multivit-Min/FA/Lycopen/Lutein [A Thru Z Select Multivit Tab] 1 tab PO DAILY 04/07/18 [History] Ascorbic Acid [Vitamin C with Afshan Hips] 500 mg PO DAILY 05/06/18 [History] Bisacodyl [Dulcolax] 10 mg RC DAILY PRN 05/06/18 [History] Sertraline [Zoloft] 100 mg PO DAILY 05/06/18 [History] Tramadol HCl [Ultram] 50 mg PO Q12H PRN 4 Days #5 tablet 05/10/18 [Rx] LORazepam [Ativan] 0.25 mg PO 2000 03/22/19 [History] MOM Conc [MILK OF MAG[place]ON[place] conc] 30 ml PO DAILY PRN 03/22/19 [History] Nystatin Cream [Mycostatin Cream] 1 applic TP BID 03/22/19 [History] Amlodipine Besylate 7.5 mg PO DAILY 05/03/19 [History] Hydralazine HCl 50 mg PO 0700,1500,2300 05/03/19 [History] Ipratropium/Albuterol Neb [Duoneb] 3 ml IH Q6HR PRN 05/03/19 [History] Menthol [Biofreeze] 1 appl TP 2100 05/03/19 [History] Acetaminophen [Tylenol] 325 mg PO Q6HR PRN 06/17/19 [History] Amoxicillin [Amoxil] 500 mg PO 0800,1400,199906/17/19 [History] Fluconazole [Diflucan] 200 mg PO 1600 06/17/19 [History] Mirtazapine 7.5 mg PO 199906/17/19 [History] Potassium Chloride [K-Tab ER] 10 meq PO 0800,1700 06/17/19 [History] Allergy/AdvReac Type Severity Reaction Status Date / Time aspirin AdvReac See Verified 06/17/19 22:09 Comments All Systems PM: A 10-system review of systems was performed and is negative for pertinent findings except as documented above in the HPI. - Constitutional Constitutional: no chills, no fever(s), no night sweats - EENT Eyes: no change in vision, no discharge, no pain, no photophobia Ears: no ear discharge, no ear pain, no tinnitus Nose, mouth and throat: no dysphagia, no nasal discharge, no neck pain, no sore throat - Cardiovascular Cardiovascular ROS IM: no chest pain, no diaphoresis, no dyspnea, no lightheadedness, no palpitations, no syncope - Respiratory Respiratory: no cough, no dyspnea, no wheezing, no excessive phlegm production - Gastrointestinal Gastrointestinal: no abdominal pain, no diarrhea, no hematemesis, no hematochezia, no melena, no nausea, no vomiting - Genitourinary Genitourinary: no change in urinary stream, no dysuria, no flank pain, no hematuria - Musculoskeletal Musculoskeletal ROS IM: no numbness, no tingling - Integumentary Integumentary IM: no rash, no unusual bruising - Neurological Neurological ROS: no confusion, no convulsions, no focal weakness, no numbness, no tingling, no tremor(s) - Hematologic/Lymphatic Hematologic/Lymphatic: no easy bruising - Constitutional Vitals: Temp Pulse Resp BP Pulse Ox 98 F 74 12 160/81 97 06/17/19 20:35 06/17/19 20:35 06/17/19 20:35 06/17/19 20:35 06/17/19 20:35 Exam: General: Alert and oriented 3; lethargic Skin:Normal color, no rash, no lesions. HEENT:EOM, pupils equal, round and reactive. Cardiovascular:Normal S1 & S2, 6 systolic murmur Lungs: Diminished breath sounds throughout Abdomen:Soft, non-tender, no rigidity. Extremities: 2+ pitting edema up to the lower shins. Patient has a wound on the right lower extremity. Neurological:Normal cognition and motor skills. Pulses:Carotid and radial pulses normal +2. Rest of the physical exam is non contributory Internal Med - H&P Results - Labs CBC & Chem 7: 06/18/19 00:26 06/18/19 00:26 Labs: Short CBC 06/17/19 Range/Units 17:31 WBC 11.0 (4.3-11.1) K/mcL Hgb 9.3 L (11.5-15.4) g/dL Hct 31.2 L (35.3-44.9) % Plt Count 323 (140-400) K/mcL Neutrophils # 7.8 (1.6-8.9) K/mcL BMP 06/17/19 17:31 Sodium 144 Potassium 3.4 L Chloride 100 Carbon Dioxide 35 H BUN 13 Creatinine 0.50 L Glucose 85 Calcium 8.9 Cardiac Enzymes 06/17/19 Range/Units 17:31 Troponin I 0.07 H* (< 0.04) ng/mL Liver Function 06/17/19 Range/Units 17:31 Total Bilirubin 0.3 (0.3-1.0) mg/dL Direct Bilirubin 0.1 (0.0-0.2) mg/dL AST 16 (13-39) Units/L ALT 9 (7-52) Units/L Alkaline Phosphatase 80 (34-104) Units/L Albumin 3.0 L (3.5-5.7) g/dL Urine 06/17/19 Range/Units 18:50 Urine Color Yellow (Yellow) Urine Clarity Cloudy A (Clear) Urine pH 5.5 (5.0-8.0) pH Units Ur Specific [place] 1.021 (1.010-1.025) Urine Protein 30 H (Neg-Trace) mg/dL Urine Glucose (UA) Normal (Normal) mg/dL - ABG Interpretation ABG results: 06/17/19 17:46 VBG pH 7.41 VBG pCO2 58 H VBG pO2 108 H VBG HCO3 37 H - Impressions ITS Impressions Chest X-Ray 06/17/19 17:12 IMPRESSION: Worsening edema and effusions. D/ : / 06/17/2019 17:48:32 Dread Harris MD / starla Interpreting Provider: Dread Harris MD Head CT 06/17/19 17:12 IMPRESSION: Chronic findings in the brain without acute CT abnormality identified. D/ / Jaziel Hernández / Jaziel Hernández Interpreting Provider: Jaziel Hernández - Assessment and Plan (1) Acute encephalopathy Current Visit: Yes Status: Acute Assessment and plan: Acute encephalopathy characterized by increased lethargy likely secondary to acute on chronic hypercapnic respiratory failure and possible CHF exacerbation. -Continue supportive oxygen and BiPAP as needed -Treat underlying CHF -Reassess for possible UTI. (2) Acute respiratory failure with hypercapnia Current Visit: Yes Status: Acute Assessment and plan: Patient presented with increased confusion and lethargy. Chest x-ray shows increasing edema and bilateral pleural effusions compared to previous chest x-r ay in May. Patient does have 2+ lower extremity edema in the ankles as well as decreased breath sounds bilaterally. Stat ABG was performed showing a pH of 7.33, PCO2 79, PO2 88 and bicarbonate of 41. Review of previous PCO2 shows current value to be the highest suggesting acute on chronic hypercapnic respiratory failure. No evidence of wheezing. No evidence of pneumonia at this time given lack of fever or leukocytosis. Previous assessment by pulmonary noted underlying restrictive lung alveolar hypoventilation and hydrostatic pulmonary edema from underlying heart failure/malnutrition. Given worsening edema there is concern for CHF exacerbation. Patient is also high risk for aspiration. -Continue supportive oxygen -Keep nothing by mouth for now -We will place patient on BiPAP and reassess ABG -Scheduled DuoNebs -We will attempt to diurese patient. -Consider pulmonary consult if patient does not improve (3) Decubitus ulcer of right leg, stage 4 Current Visit: Yes Status: Acute Assessment and plan: Location: Right posterior lateral lower leg. Etiology: Unclear. Trauma versus pressure ulcer versus other. Wound care consult. (4) Elevated troponin Current Visit: Yes Status: Acute Assessment and plan: Elevated troponin of 0.07. Troponin appears to be chronically elevated since March. Review of EKG does not show any evidence of ischemic changes. She did not endorse any chest pain at this time. Possible demand ischemia in the setting of acute on chronic respiratory failure. -We will continue to trend -Telemetry -Continue aspirin, beta maricruz, ARB (5) Acute on chronic diastolic CHF (congestive heart failure) Current Visit: Yes Status: Resolved Assessment and plan: Evidence of fluid overload with 2+ lower extremity edema and chest x-ray showing increased edema and bilateral pleural effusions. Elevated BNP of 589 -Telemetry -Strict I's and O's; daily weights -Lasix 20 mg twice a day -Monitor kidney function (6) Urinary tract infection Current Visit: Yes Status: Acute Assessment and plan: Urinalysis showing elevated leukocyte esterase in the setting of chronic indwelling Andrade. Urine sample was obtained from current Andrade. Patient was given 1 dose of linezolid based on previous sensitivities. -We will swap out Andrade and re-repeat urinalysis -Consider resuming antibiotics if repeat UA suggestive of UTI Qualifiers: Urinary tract infection type: catheter-associated UTI Indwelling urinary catheter type: indwelling urethral catheter Encounter type: initial encounter Qualified Code(s): T83.511A - Infection and inflammatory reaction due to indwelling urethral catheter, initial encounter; N39.0 - Urinary tract infection, site not specified (7) DVT prophylaxis Current Visit: No Status: Acute Assessment and plan: Subcutaneous heparin - Time Spent With Patient Total time spent is greater than 50% in coordination of care (as documented) at patient's floor/unit and/or counseling patient:
[2019-06-17 21:12] LABS: ABG Base Excess 13 mEq/L (-2 to 3); ABG HCO3 41 mEq/L (21-27); ABG Oxygen Saturation 95 % (95-98); ABG PCO2 79 mmHg (35-45); ABG PH 7.33 pH Units (7.32-7.45); ABG PO2 88 mmHg (85-104); ABG TCO2 44 mEq/L (20-26)
[2019-06-17] MEDS ORDERED: *HR* Heparin 5,000 UNIT/ML VIAL ONE (21:44)
[2019-06-17] MEDS: *HR* Heparin 5,000 UNIT/ML VIAL SQ SCH (21:46)
[2019-06-18] MEDS: Ipratropium/Albuterol Neb 3 ML IH SCH ×7 (00:02→23:09)
[2019-06-18 00:14] LABS: Bilirubin,Urine Negative (Negative); Blood,Urine Trace (Negative); Clarity,Urine Clear (Clear); Color,Urine Yellow (Yellow); Glucose,Urine (UA) Normal (Normal); Ketones,Urine Negative (Negative); Leukocyte Esterase,Urine Large (Negative); Nitrite,Urine Negative (Negative); PH,Urine 7.5 pH Units (5.0-8.0); Protein,Urine Negative (Neg-Trace); Specific Gravity,Urine 1.008 (1.010-1.025); Urobilinogen,Urine Normal (Normal)
[2019-06-18 00:16] LABS: Bacteria,Urine None Seen per hpf (None-Few); Hyaline Casts,Urine Few per lpf (None-Few); Squamous Epithelial Cell,Urine Many per lpf (None-Few); WBC,Urine 50-100 per hpf (0-3)
[2019-06-18 00:29] LABS: Yeast,Urine Moderate per hpf (None Seen)
[2019-06-18 00:30] LABS: Transitional Epi Cells,Urine Few per hpf (None-Few)
[2019-06-18 00:37] LABS: Basophils % 0.1 %; Eosinophils # 0.1 K/mcL (0.0-0.6); Eosinophils % 0.4 %; Hematocrit 31.1 % (35.3-44.9); Hemoglobin 9.2 g/dL (11.5-15.4); Immature Granulocytes % 0.6 % (0-4); Lymphocytes # 1.7 K/mcL (0.6-4.6); Lymphocytes % 12.2 %; Mean Corpuscular HGB Conc 29.6 g/dL (31.6-35.5); Mean Corpuscular Hemoglobin 31.5 pg (28.0-33.3); Mean Corpuscular Volume 106.5 fL (83.0-100.0); Mean Platelet Volume 10.4 fL (9.4-12.4); Monocytes # 0.7 K/mcL (0.0-1.3); Monocytes % 5.1 %; Neutrophils # 11.4 K/mcL (1.6-8.9); Platelet Count 208 K/mcL (140-400); Red Blood Count 2.92 M/mcL (3.82-4.97); Segmented Neutrophils % 81.6 %
[2019-06-18 00:46] LABS: INR 1.1; Prothrombin Time 12.2 Seconds (9.4-12.1)
[2019-06-18 00:48] LABS: Activated Partial Thrombo Time 32.2 Seconds (26.0-36.0)
[2019-06-18 00:57] LABS: Alanine Aminotransferase 8 Units/L (7-52); Albumin 2.9 g/dL (3.5-5.7); Albumin/Globulin Ratio 1.2 (1.1-2.2); Alkaline Phosphatase 80 Units/L (34-104); Aspartate Amino Transferase 15 Units/L (13-39); BUN/Creatinine Ratio 24 (6-26); Bilirubin,Total 0.3 mg/dL (0.3-1.0); Blood Urea Nitrogen 12 mg/dL (8-23); Carbon Dioxide 39 mEq/L (23-29); Chloride 99 mEq/L (98-107); Globulin 2.5 g/dL (2.4-3.5); Glucose 109 mg/dL (70-105); Magnesium 1.5 mg/dL (1.6-2.6); Osmolality,Calculated 294 (280-300); Potassium 3.2 mEq/L (3.5-5.1); Sodium 142 mEq/L (136-145); Total Protein 5.4 g/dL (6.4-8.9); eGFR For African Americans > 60 (> 60); eGFR For Non-African Americans > 60 (> 60)
[2019-06-18 07:10] LABS: ABG Base Excess 17 mEq/L (-2 to 3); ABG HCO3 42 mEq/L (21-27); ABG Oxygen Saturation 94 % (95-98); ABG PCO2 57 mmHg (35-45); ABG PH 7.48 pH Units (7.32-7.45); ABG PO2 66 mmHg (85-104); ABG TCO2 44 mEq/L (20-26); Blood Gas PEEP 6 cm H2O
[2019-06-18] MEDS ORDERED: Furosemide 20 MG/2 ML VIAL IVP SCH (09:00)
[2019-06-18] MEDS: Aspirin 81 MG TAB.CHEW PO SCH (09:14)
[2019-06-18] MEDS: *HR* Heparin 5,000 UNIT/ML VIAL SQ SCH ×2 (09:20→18:23)
[2019-06-18] MEDS ORDERED: Ipratropium/Albuterol Neb 3 ML IH PRN (15:06)
[2019-06-18] MEDS: Lactobacillus 1 EACH CAP.SPRINK PO SCH (16:12)
--- NOTE | 2019-06-18 16:56 | Internal Med Progress Note ---
Hospitalist Progress Note - Encounter Date of Encounter: 06/18/19 Time of Encounter: 13:55 - Subjective Interval History: Discussed with patient's son Jonas at the bedside his phone number is [phone], he said he is 1 of 3 sons he lives in [place] and that the younger brother Abdulkadir is the POA and lives locally however is currently on vacation in [place]. Abudlkadir the POA can be reached at [phone]. Jonas stated him and his older brother has tried to talk Abdulkadir their younger brother about CODE STATUS. However he stated that Abdulkadir patient's POA gets upset. He does report the patient as having no quality of life and being bedridden. GEN: Denies fever, chills or malaise HEENT: Denies headache blurriness, or dysphagia RESP: Denies SOB or cough CV: Denies chest pain or palpitations GI: Denies Nausea, vomiting, diarrhea or constipation Reviewed current in hospital medications with modifications see orders Reviewed Routine labs - Exam Vitals: Temp Pulse Resp BP Pulse Ox 98.2 F 84 16 144/79 99 06/18/19 14:49 06/18/19 14:49 06/18/19 15:26 06/18/19 14:49 06/18/19 15:26 Exam: GEN: NAD, A&O x 3-person place and time. minimally conversant but did answer appropriately to yes and no questions SKIN: Pale, thin extremely fragile HEART: RRR, 2/6 systolic murmur appreciated LUNGS: diminished and slightly coarse no wheeze, overall non labored ABDOMEN; Soft, non tender or distended, BS x 4 normactive EXT: Diffuse LE edema, however bilateral lower extremity deformity noted with foot drop, Pedal pulses 1+, radial pulses 2+ PSYCH: Deferred - Assessment and Plan (1) Acute encephalopathy Current Visit: Yes Status: Acute Assessment and Plan: Appears improved since initial admission, suspect underlying infectious cause from a UTI and dehydration continue monitoring clinically correlate. CT head was unyielding for any acute intracranial abnormality. However reveals cortical atrophy and white matter changes with associated ventricular enlargement. There is also concern for possible hypercapnia induced encephalopathy ABG on admission was PCO2 79, trend down to 57. Ammonia level was within normal limits and urine toxicology screen was negative (2) Severe protein-calorie malnutrition Current Visit: Yes Status: Acute Assessment and Plan: Suspect underlying dementia son says patient is bed ridden and likely has no access to eating without been helped. She is currently nothing by mouth pending speech therapy evaluation for aspiration (3) Acute respiratory failure with hypercapnia Current Visit: Yes Status: Acute Assessment and Plan: Improvement evidence in repeat ABG, continue BiPAP if tolerated (4) Elevated troponin Current Visit: Yes Status: Acute Assessment and Plan: Elevated troponin of 0.07. Troponin appears to be chronically elevated since March. Review of EKG does not show any evidence of ischemic changes. She did not endorse any chest pain at this time. Possible demand ischemia in the setting of acute on chronic respiratory failure. -We will continue to trend trended up to 0.08 the patient's. Does not report any chest pain. She is bedridden and does not appear to be an ideal surgical candidate no ischemic workup will be pursued at this point -Telemetry -Continue aspirin, beta maricruz, ARB (5) Urinary tract infection Current Visit: Yes Status: Acute Assessment and Plan: Urinalysis showing elevated leukocyte esterase in the setting of chronic indwelling Andrade. Urine sample was obtained from current Andrade. Patient was given 1 dose of linezolid based on previous sensitivities. -We will swap out Andrade and re-repeat urinalysis -Consider resuming antibiotics if repeat UA suggestive of UTI, empiric ceftriaxone added this afternoon. Her son did say that she is prone to UTIs as aforementioned chronic indwelling catheter favors colonization. (6) Decubitus ulcer of right leg, stage 4 Current Visit: Yes Status: Acute Assessment and Plan: Location: Right posterior lateral lower leg. Etiology: Unclear. Trauma versus pressure ulcer versus other. Wound care consult. (7) Acute on chronic diastolic CHF (congestive heart failure) Current Visit: Yes Status: Resolved Assessment and Plan: Evidence of fluid overload with 2+ lower extremity edema and chest x-ray showing increased edema and bilateral pleural effusions. Elevated BNP of 589. Her malnourished state is planning a role she appears to be intravascularly volume depleted however third spacing. We will monitor her urine output closely (8) DVT prophylaxis Current Visit: No Status: Acute Assessment and Plan: Subcutaneous heparin (9) Anemia Current Visit: Yes Status: Acute Assessment and Plan: Per her prior lab parameters hemoglobin ranges from 9-12. Dated back to March of 2019. Initiate workup - Time Spent with Patient Total time spent is greater than 50% in coordination of care (as documented) at patient's floor/unit and/or counseling patient: Internal Medicine: Result - Labs CBC & Chem 7: 06/18/19 00:26 06/18/19 00:26 Labs: Short CBC 06/17/19 06/18/19 Range/Units 17:31 00:26 WBC 11.0 14.0 H (4.3-11.1) K/mcL Hgb 9.3 L 9.2 L (11.5-15.4) g/dL Hct 31.2 L 31.1 L (35.3-44.9) % Plt Count 323 208 (140-400) K/mcL Neutrophils # 7.8 11.4 H (1.6-8.9) K/mcL BMP 06/17/19 06/18/19 17:31 00:26 Sodium 144 142 Potassium 3.4 L 3.2 L Chloride 100 99 Carbon Dioxide 35 H 39 H BUN 13 12 Creatinine 0.50 L 0.51 L Glucose 85 109 H Calcium 8.9 9.0 Cardiac Enzymes 06/17/19 06/18/19 Range/Units 17:31 00:26 Troponin I 0.07 H* 0.08 H* (< 0.04) ng/mL Liver Function 06/17/19 06/18/19 Range/Units 17:31 00:26 Total Bilirubin 0.3 0.3 (0.3-1.0) mg/dL Direct Bilirubin 0.1 (0.0-0.2) mg/dL AST 16 15 (13-39) Units/L ALT 9 8 (7-52) Units/L Alkaline Phosphatase 80 80 (34-104) Units/L Albumin 3.0 L 2.9 L (3.5-5.7) g/dL Urine 06/17/19 06/17/19 Range/Units 18:50 23:35 Urine Color Yellow Yellow (Yellow) Urine Clarity Cloudy A Clear (Clear) Urine pH 5.5 7.5 (5.0-8.0) pH Units Ur Specific [place] 1.021 1.008 L (1.010-1.025) Urine Protein 30 H Negative (Neg-Trace) mg/dL Urine Glucose (UA) Normal Normal (Normal) mg/dL - ABG Interpretation ABG results: ABG ABG pH 7.48 pH Units (7.32-7.45) H 06/18/19 07:03 ABG pCO2 57 mmHg (35-45) H 06/18/19 07:03 ABG pO2 66 mmHg (85-104) L 06/18/19 07:03 ABG O2 Saturation 94 % (95-98) L 06/18/19 07:03 PT/INR, D-dimer PT 12.2 Seconds (9.4-12.1) H 06/18/19 00:26 - Impressions Impressions Chest X-Ray 06/17/19 17:12 IMPRESSION: Worsening edema and effusions. D/ / 06/17/2019 17:48:32 Dread Harris MD / starla Interpreting Provider: Dread Harris MD Head CT 06/17/19 17:12 IMPRESSION: Chronic findings in the brain without acute CT abnormality identified. D/ / Jaziel Hernández / Jaziel Hernández Interpreting Provider: Jaziel Hernández Consult Discharge Plan - Plan Referrals: NONE,PCP [Primary Care Provider] - (5) Urinary tract infection Qualifiers: Urinary tract infection type: catheter-associated UTI Indwelling urinary catheter type: indwelling urethral catheter Encounter type: initial encounter Qualified Code(s): T83.511A - Infection and inflammatory reaction due to indwelling urethral catheter, initial encounter; N39.0 - Urinary tract infection, site not specified (9) Anemia Qualifiers: Anemia type: unspecified type Qualified Code(s): D64.9 - Anemia, unspecified
[2019-06-18] MEDS ORDERED: D5% in 0.45% NACL w KCl 10 MEQ/1,000 ML MLS IVC SCH (17:00)
[2019-06-18] MEDS ORDERED: D5% in 0.9% NACL 1,000 ML IVC SCH (17:45)
[2019-06-18] MEDS: cefTRIAXone 1,000 MG in Water for inj. (sterile) 10 ML IVP SCH (18:22)
[2019-06-18] MEDS: *HR* LORazepam 0.5 MG TABLET PO SCH (21:24)
[2019-06-18] MEDS: Mirtazapine 15 MG TABLET PO SCH (21:24)
[2019-06-18] MEDS: Nystatin Cream 15 GM TUBE TP SCH (21:25)
[2019-06-19] MEDS: *HR* Heparin 5,000 UNIT/ML VIAL SQ SCH ×3 (00:28→14:45)
[2019-06-19 03:00] LABS: Basophils % 0.1 %; Eosinophils # 0.1 K/mcL (0.0-0.6); Hematocrit 27.9 % (35.3-44.9); Hemoglobin 8.2 g/dL (11.5-15.4); Immature Granulocytes % 0.7 % (0-4); Lymphocytes # 1.3 K/mcL (0.6-4.6); Mean Corpuscular HGB Conc 29.4 g/dL (31.6-35.5); Mean Corpuscular Hemoglobin 31.7 pg (28.0-33.3); Mean Corpuscular Volume 107.7 fL (83.0-100.0); Mean Platelet Volume 10.4 fL (9.4-12.4); Monocytes # 0.8 K/mcL (0.0-1.3); Monocytes % 8.4 %; Neutrophils # 7.7 K/mcL (1.6-8.9); Platelet Count 289 K/mcL (140-400); Red Blood Count 2.59 M/mcL (3.82-4.97); Segmented Neutrophils % 76.8 %
[2019-06-19 03:19] LABS: % Iron Saturation 13 % (15-50); Iron 17 mcg/dL (50-170); Transferrin 96 mg/dL (203-362)
[2019-06-19 03:22] LABS: BUN/Creatinine Ratio 21 (6-26); Blood Urea Nitrogen 12 mg/dL (8-23); Calcium 8.6 mg/dL (8.6-10.3); Carbon Dioxide 42 mEq/L (23-29); Chloride 94 mEq/L (98-107); Glucose 72 mg/dL (70-105); Magnesium 2.3 mg/dL (1.6-2.6); Osmolality,Calculated 296 (280-300); Potassium 3.7 mEq/L (3.5-5.1); Sodium 144 mEq/L (136-145); eGFR For African Americans > 60 (> 60); eGFR For Non-African Americans > 60 (> 60)
[2019-06-19 03:38] LABS: Ferritin 203 ng/mL (10-120)
[2019-06-19 03:44] LABS: Folate 9.8 ng/mL (3.0-16.0)
[2019-06-19] MEDS: Ipratropium/Albuterol Neb 3 ML IH SCH ×6 (03:45→23:49)
[2019-06-19] MEDS ORDERED: Furosemide 40 MG/4 ML VIAL IVP SCH (09:00)
[2019-06-19] MEDS: cefTRIAXone 1,000 MG in Water for inj. (sterile) 10 ML IVP SCH (10:20)
[2019-06-19] MEDS: Lactobacillus 1 EACH CAP.SPRINK PO SCH ×2 (10:59→14:45)
[2019-06-19] MEDS: Aspirin 81 MG TAB.CHEW PO SCH (10:59)
[2019-06-19] MEDS: Nystatin Cream 15 GM TUBE TP SCH ×2 (11:00→20:44)
[2019-06-19] MEDS: Ascorbic Acid 500 MG TABLET PO SCH (11:00)
[2019-06-19] MEDS: Multivit/Ca/Min/Fe/FA 1 TAB TABLET PO SCH (11:00)
[2019-06-19] MEDS: *HR* Dextrose 50 % in Water (Syg) 50 ML SYRINGE IVP ONE ×2 (11:00→12:30)
--- NOTE | 2019-06-19 14:08 | Internal Med Progress Note ---
Hospitalist Progress Note - Encounter Date of Encounter: 06/19/19 Time of Encounter: 13:20 - Subjective Interval History: Ms Rolle appears to be more somnolent than yesterday, Jonas her son at the bedside. Appears nursing staff was a initially reluctant to administer dextrose was ordered earlier this morning. Educated the patient son and her nurse that given that she has not eating for a few days she is high risk for a ketotic state and that the normal blood glucose and the number for hypoglycemia is all based on based on population parameters. Patient was been administered the 25 g of glucose during the encounter. Patient was somnolent but appears to be tolerating her BiPAP mask Reviewed current in hospital medications with modifications see orders Reviewed Routine labs - Exam Vitals: Temp Pulse Resp BP Pulse Ox 97.6 F 88 18 122/66 97 06/19/19 10:35 06/19/19 10:35 06/19/19 11:29 06/19/19 10:35 06/19/19 11:29 Exam: GEN: NAD, somnolent requiring a BiPAP mask, son at the bedside SKIN: Pale, thing extremely fragile, skin breakdown noted on dorsum of the left lower extremity, dressing surrounding the right lower extremity clean dry and intact HEART: RRR, grade 2/6 systolic murmur noted LUNGS: Diminished with few scattered crackles, no wheezing overall non labored ABDOMEN; Soft, non tender or distended, BS x 4 normactive EXT: Diffuse LE edema much improved from yesterday exam, Pedal pulses 1+, radial pulses 2+ PSYCH: Deferred - Assessment and Plan (1) Acute on chronic diastolic CHF (congestive heart failure) Current Visit: Yes Status: Resolved Assessment and Plan: Evidence of fluid overload with 2+ lower extremity edema and chest x-ray showing increased edema and bilateral pleural effusions. Elevated BNP of 589. Her malnourished state is planning a role she appears to be intravascularly volume depleted however third spacing. We will monitor her urine output closely, she has had 2.7 L out she is -2 L (2) Acute respiratory failure with hypercapnia Current Visit: Yes Status: Acute Assessment and Plan: tolerating BiPAP continue BiPAP therapy carbon dioxide on BMP slightly elevated. We will trend bmp. no need for daily ABG, check prn if her status worsens (3) Acute encephalopathy Current Visit: Yes Status: Acute Assessment and Plan: Although somnolent today, which is being attributed to her lack of oral intake will likely base. She appears improved since initial admission, suspect underlying infectious cause from a UTI and dehydration continue monitoring clinically correlate. CT head was unyielding for any acute intracranial abnormality. However reveals cortical atrophy and white matter changes with associated ventricular enlargement. There is also concern for possible hypercapnia induced encephalopathy ABG on admission was PCO2 79, trend down to 57. Ammonia level was within normal limits and urine toxicology screen was negative (4) DVT prophylaxis Current Visit: No Status: Acute Assessment and Plan: heparin every 8 h per protocol (5) Elevated troponin Current Visit: Yes Status: Acute Assessment and Plan: Elevated troponin of 0.07. Troponin appears to be chronically elevated since March. Review of EKG does not show any evidence of ischemic changes. She did not endorse any chest pain at this time. Possible demand ischemia in the setting of acute on chronic respiratory failure. Per son Jonas patient has been bedridden, overall she is does not appear to be a steady surgical candidate no ischemic work up will be pursued. From my discussion with Jonas it appears 2 out of 3 sons are ok with palliative measures exception being Abdulkadir the youngest of the three and the POA because he lives locally per Jonas. -Continue aspirin, beta maricruz, ARB (6) Urinary tract infection Current Visit: Yes Status: Acute Assessment and Plan: Urinalysis showing elevated leukocyte esterase in the setting of chronic indwelling Andrade. Urine sample was obtained from current Andrade. Patient was given 1 dose of linezolid based on previous sensitivities. swap out Andrade and re -repeat urinalysis -Her son did say that she is prone to UTIs as aforementioned chronic indwelling catheter favors colonization, however will treat with 3 days of ceftriaxone since she presented with altered mental status, urine culture 2 has grew gram- negative rods and yeast species (7) Decubitus ulcer of right leg, stage 4 Current Visit: Yes Status: Acute Assessment and Plan: Location: Right posterior lateral lower leg. Etiology: Unclear. Trauma versus pressure ulcer versus other. Wound care consult. - Time Spent with Patient Total time spent is greater than 50% in coordination of care (as documented) at patient's floor/unit and/or counseling patient: Internal Medicine: Result - Labs CBC & Chem 7: 06/19/19 01:44 06/19/19 01:44 Labs: Short CBC 08/18/19 Range/Units 01:44 WBC 10.0 (4.3-11.1) K/mcL Hgb 8.2 L (11.5-15.4) g/dL Hct 27.9 L (35.3-44.9) % Plt Count 289 (140-400) K/mcL Neutrophils # 7.7 (1.6-8.9) K/mcL BMP 06/19/19 01:44 Sodium 144 Potassium 3.7 Chloride 94 L Carbon Dioxide 42 H* BUN 12 Creatinine 0.58 L Glucose 72 Calcium 8.6 - ABG Interpretation ABG results: ABG ABG pH 7.48 pH Units (7.32-7.45) H 06/18/19 07:03 ABG pCO2 57 mmHg (35-45) H 06/18/19 07:03 ABG pO2 66 mmHg (85-104) L 06/18/19 07:03 ABG O2 Saturation 94 % (95-98) L 06/18/19 07:03 PT/INR, D-dimer PT 12.2 Seconds (9.4-12.1) H 06/18/19 00:26 Consult Discharge Plan - Plan Referrals: NONE,PCP [Primary Care Provider] - (6) Urinary tract infection Qualifiers: Urinary tract infection type: catheter-associated UTI Indwelling urinary catheter type: indwelling urethral catheter Encounter type: initial encounter Qualified Code(s): T83.511A - Infection and inflammatory reaction due to indwelling urethral catheter, initial encounter; N39.0 - Urinary tract infection , site not specified
[2019-06-19] MEDS ORDERED: *HR* Metoprolol 5 MG/5 ML VIAL IVP PRN (18:56)
[2019-06-19] MEDS ORDERED: Acetaminophen IV 500 MG/50 ML INFUS..BTL IVPB ONE (19:54)
[2019-06-19] MEDS: Mirtazapine 15 MG TABLET PO SCH (20:43)
[2019-06-19] MEDS: *HR* LORazepam 0.5 MG TABLET PO SCH (20:43)
[2019-06-20] MEDS: *HR* Heparin 5,000 UNIT/ML VIAL SQ SCH ×2 (00:40→08:23)
[2019-06-20] MEDS: Ipratropium/Albuterol Neb 3 ML IH SCH ×3 (04:41→11:33)
[2019-06-20 05:10] LABS: Basophils % 0.2 %; Eosinophils # 0.2 K/mcL (0.0-0.6); Eosinophils % 2.1 %; Hematocrit 28.9 % (35.3-44.9); Hemoglobin 8.4 g/dL (11.5-15.4); Immature Granulocytes % 0.6 % (0-4); Lymphocytes # 1.7 K/mcL (0.6-4.6); Lymphocytes % 16.9 %; Mean Corpuscular HGB Conc 29.1 g/dL (31.6-35.5); Mean Corpuscular Hemoglobin 31.5 pg (28.0-33.3); Mean Corpuscular Volume 108.2 fL (83.0-100.0); Mean Platelet Volume 10.2 fL (9.4-12.4); Monocytes # 0.8 K/mcL (0.0-1.3); Monocytes % 8.3 %; Neutrophils # 7.3 K/mcL (1.6-8.9); Platelet Count 284 K/mcL (140-400); Red Blood Count 2.67 M/mcL (3.82-4.97); Red Cell Distribution Width 15.3 % (11.5-14.5); Segmented Neutrophils % 71.9 %; White Blood Count 10.1 K/mcL (4.3-11.1)
[2019-06-20 05:43] LABS: BUN/Creatinine Ratio 17 (6-26); Blood Urea Nitrogen 17 mg/dL (8-23); Calcium 8.8 mg/dL (8.6-10.3); Carbon Dioxide 42 mEq/L (23-29); Chloride 94 mEq/L (98-107); Glucose 112 mg/dL (70-105); Magnesium 2.2 mg/dL (1.6-2.6); Osmolality,Calculated 304 (280-300); Potassium 3.5 mEq/L (3.5-5.1); Sodium 146 mEq/L (136-145); eGFR For African Americans > 60 (> 60); eGFR For Non-African Americans 51 (> 60)
[2019-06-20] MEDS: cefTRIAXone 1,000 MG in Water for inj. (sterile) 10 ML IVP SCH (08:22)
[2019-06-20] MEDS: Ascorbic Acid 500 MG TABLET PO SCH (08:23)
[2019-06-20] MEDS: Aspirin 81 MG TAB.CHEW PO SCH (08:23)
[2019-06-20] MEDS: Lactobacillus 1 EACH CAP.SPRINK PO SCH (08:24)
[2019-06-20] MEDS: Multivit/Ca/Min/Fe/FA 1 TAB TABLET PO SCH (08:24)
[2019-06-20] MEDS: Nystatin Cream 15 GM TUBE TP SCH (08:25)
[2019-06-20] MEDS ORDERED: Furosemide 40 MG TABLET PO SCH (09:00)
[2019-06-20 12:07] VITALS: BP 145/89
[2019-06-20] MEDS ORDERED: Gentamicin Oint 15 GM TUBE TP SCH (12:15)
--- NOTE | 2019-06-20 12:28 | Discharge Summary ---
- NOTES TO OUTPATIENT PROVIDER Notes to Outpatient Provider: Post hospital discharge for acute on chronic congestive heart failure Pseudomonas UTI Orders not resulted at time of discharge: Pending orders 06/17/19 18:50 Culture,Urine [RM] Stat 06/17/19 20:15 Culture,Blood [BC] Stat Date of Encounter: 06/20/19 Time of Encounter: 12:00 - Discharge Diagnosis (1) Urinary tract infection Priority: Primary Status: Acute Assessment and Plan: Urinalysis showing elevated leukocyte esterase in the setting of chronic indwelling Higgins. Urine sample was obtained from current Higgins. Patient was given 1 dose of linezolid based on previous sensitivities. swap out Higgins and re-repeat urinalysis -Her son did say that she is prone to UTIs as aforementioned chronic indwelling catheter favors colonization, however will treat with 3 days of ceftriaxone since she presented with altered mental status, urine culture 2 has grew gram- negative rods- pansensitive pseudomonas and yeast species, we will discharge on ciprofloxacin plus one dose of diflucan Qualifiers: Urinary tract infection type: catheter-associated UTI Indwelling urinary catheter type: indwelling urethral catheter Encounter type: initial encounter Qualified Code(s): T83.511A - Infection and inflammatory reaction due to indwelling urethral catheter, initial encounter; N39.0 - Urinary tract infection, site not specified (2) Acute on chronic diastolic CHF (congestive heart failure) Priority: Primary Status: Resolved Assessment and Plan: Evidence of fluid overload with 2+ lower extremity edema and chest x-ray showing increased edema and bilateral pleural effusions. Elevated BNP of 589. Her malnourished state is planning a role she appears to be intravascularly volume d epleted however third spacing. We will monitor her urine output closely, she has had 3.4L out she is -2.4 L (3) Acute respiratory failure with hypercapnia Priority: Primary Status: Acute Assessment and Plan: tolerating BiPAP continue BiPAP therapy at [facility] (4) Acute encephalopathy Priority: Secondary Status: Acute Assessment and Plan: Resolved she is back to baseline. which is being attributed to her lack of oral intake will likely base. She appears improved since initial admission, suspect underlying infectious cause from a UTI and dehydration continue monitoring clinically correlate. CT head was unyielding for any acute intracranial abnormality. However reveals cortical atrophy and white matter changes with associated ventricular enlargement. There is also concern for possible hypercapnia induced encephalopathy ABG on admission was PCO2 79, trend down to 57. Ammonia level was within normal limits and urine toxicology screen was negative (5) DVT prophylaxis Priority: Secondary Status: Acute Assessment and Plan: will be discharged today (6) Elevated troponin Priority: Secondary Status: Acute Assessment and Plan: She denies chest pain. Discharge today Elevated troponin of 0.07. Troponin appears to be chronically elevated since March. Review of EKG does not show any evidence of ischemic changes. She did not endorse any chest pain at this time. Possible demand ischemia in the setting of acute on chronic respiratory failure. Per son Jonas patient has been bedridden, overall she is does not appear to be a steady surgical candidate no ischemic work up will be pursued. From my discussion with Jonas it appears 2 out of 3 sons are ok with palliative measures exception being Abdulkadir the youngest of the three and the POA because he lives locally per Jonas. -Continue aspirin, beta maricruz, ARB (7) Decubitus ulcer of right leg, stage 4 Priority: Secondary Status: Acute Assessment and Plan: Location: Right posterior lateral lower leg. Etiology: Unclear. Trauma versus pressure ulcer versus other. Wound care consult. (8) Severe protein-calorie malnutrition Priority: Secondary Status: Acute Assessment and Plan: Discussed with son regarding nutritional supplement. She was evaluated by the speech therapy due to concern for possible aspiration. She was placed on a nectar thick liquid diet Hospital course: Ms. Rolle is a 84 year old female was hospitalized for CHF exacerbation treated with IV diuresis. During hospitalization was noted to have also hypercapnia which was treated with BiPAP therapy. Patient was treated for urinary tract infection with indwelling higgins cath which was swapped out. Culture revealed Pseudomonas and yeast. She was already on fluconazole at the [facility], ceftriaxone was used for the UTI, upon discharge she will be switched to ciprofloxacin orally based on sensitivity of the Pseudomonas. She was evaluated by speech therapy and was placed on a nectar thick diet. Discharge discussed with: patient, family, nurse - Time Spent with Patient Total time spent providing and/or coordinating discharge services:36 mins Specific discharge activities: Please take all medications as prescribed and adhere to the treatment plan at [facility] - Discharge Medications Prescriptions: New Ciprofloxacin HCl [Cipro] 500 mg PO BID 10 Days #20 tablet Furosemide [Lasix] 40 mg PO DAILY #30 tablet Continued Pantoprazole Sodium [Protonix] 40 mg PO DAILY Aspirin 81 mg PO DAILY Losartan Potassium [Cozaar] 50 mg PO BID #60 tab Metoprolol [Lopressor] 25 mg PO BID Lactobacillus Acidophilus [Acidophilus] 1 tab PO 0800,1600 Multivit-Min/FA/Lycopen/Lutein [A Thru Z Select Multivit Tab] 1 tab PO DAILY Sertraline [Zoloft] 100 mg PO DAILY Ascorbic Acid [Vitamin C with Afshan Hips] 500 mg PO DAILY Nystatin Cream [Mycostatin Cream] 1 applic TP BID Amlodipine Besylate 7.5 mg PO DAILY Ipratropium/Albuterol Neb [Duoneb] 3 ml IH Q6HR PRN PRN Reason: Shortness Of Breath Menthol [Biofreeze] 1 appl TP 2100 Acetaminophen [Tylenol] 325 mg PO Q6HR PRN PRN Reason: Mild Pain/Fever Fluconazole [Diflucan] 200 mg PO 1600 Mirtazapine 7.5 mg PO 2000 Tramadol HCl [Ultram] 50 mg PO Q12H PRN 4 Days #5 tablet PRN Reason: Pain Changed LORazepam [Ativan] 0.25 mg PO QDPC 7 Days #7 tablet Discontinued Benzonatate 100 mg PO DAILY PRN PRN Reason: Cough Guaifenesin [Mucinex] 600 mg PO BID PRN PRN Reason: Congestion Docusate [Colace] 100 mg PO BID PRN capsule PRN Reason: Constipation Bisacodyl [Dulcolax] 10 mg RC DAILY PRN PRN Reason: Constipation MOM Conc [MILK OF MAGNESIA conc] 30 ml PO DAILY PRN PRN Reason: Constipation Hydralazine HCl 50 mg PO 0700,1500,2300 Amoxicillin [Amoxil] 500 mg PO 0800,1400,2000 No Action Potassium Chloride [K-Tab ER] 10 meq PO 0800,1700 Home Medications: Pantoprazole Sodium [Protonix] 40 mg PO DAILY 10/12/16 [History] Aspirin 81 mg PO DAILY 12/01/16 [History] Losartan Potassium [Cozaar] 50 mg PO BID #60 tab 12/03/16 [Rx] Metoprolol [Lopressor] 25 mg PO BID 11/04/17 [History] Lactobacillus Acidophilus [Acidophilus] 1 tab PO 0800,1600 12/02/17 [History] Multivit-Min/FA/Lycopen/Lutein [A Thru Z Select Multivit Tab] 1 tab PO DAILY 04/07/18 [History] Ascorbic Acid [Vitamin C with Afshan Hips] 500 mg PO DAILY 05/06/18 [History] Sertraline [Zoloft] 100 mg PO DAILY 05/06/18 [History] Nystatin Cream [Mycostatin Cream] 1 applic TP BID 03/22/19 [History] Amlodipine Besylate 7.5 mg PO DAILY 05/03/19 [History] Ipratropium/Albuterol Neb [Duoneb] 3 ml IH Q6HR PRN 05/03/19 [History] Menthol [Biofreeze] 1 appl TP 2100 05/03/19 [History] Acetaminophen [Tylenol] 325 mg PO Q6HR PRN 06/17/19 [History] Fluconazole [Diflucan] 200 mg PO 1600 06/17/19 [History] Mirtazapine 7.5 mg PO 2000 06/17/19 [History] Potassium Chloride [K-Tab ER] 10 meq PO 0800,1700 06/17/19 [History] Ciprofloxacin HCl [Cipro] 500 mg PO BID 10 Days #20 tablet 06/20/19 [Rx] Furosemide [Lasix] 40 mg PO DAILY #30 tablet 06/20/19 [Rx] LORazepam [Ativan] 0.25 mg PO QDPC 7 Days #7 tablet 06/20/19 [Rx] Tramadol HCl [Ultram] 50 mg PO Q12H PRN 4 Days #5 tablet 06/20/19 [Rx] Allergies/Adverse Reactions: Allergy/AdvReac Type Severity Reaction Status Date / Time aspirin AdvReac See Verified 06/17/19 22:09 Comments Date of admission: 06/17/19 19:53 Primary care physician: PCP NONE Consults: 06/17/19 23:16 Consult to Wound Care [CONS] Routine Reason for Consult: Right lower extremity wound Call Completed: No 06/18/19 18:49 Consult to Speech Therapy [CONS] Routine Comment: Evaluate, develop and implement POC Reason for Consult: Trouble Swallowing Call Completed: No 06/20/19 07:44 Consult to Nurse Navigator [CONS] Routine Comment: CHF Consult to Slide Forming Machine Operator [CONS] Routine Reason for SW Consult: PATIENT FROM [facility] Discharging clinician: Rebeca Romero Anticipated date of discharge: 06/20/19 - Constitutional Vitals: Temp Pulse Resp BP Pulse Ox 98.5 F 99 16 145/89 97 06/20/19 12:01 06/20/19 12:01 06/20/19 12:01 06/20/19 12:01 06/20/19 12:01 Exam: GEN: NAD, A&O x 3, Pleasant and conversant, son jonas at the bedside SKIN: Pale, thin extremity fragile, skin breakdown located and does not want to left lower extremity dressing is clean dry and intact HEART: RRR, 2/6 systolic murmurs LUNGS: Diminished but appears CTA no wheeze or crackles, overall non labored ABDOMEN; Soft, non tender or distended, BS x 4 normactive EXT: No LE edema, Pedal pulses 1+, radial pulses 2+ PSYCH: Mood and affect is appropriate - Patient Status Disposition: Transfer Inpatient Rehab Fac Condition: Fair Functional capacity at discharge: bed bound Overall status at discharge: patient is back to baseline - Discharge Instructions Instructions: Acute Respiratory Distress Syndrome (DC), Urinary Tract Infection in Women (DC) Follow Up With: NONE,PCP [Primary Care Provider] - - Diet and Activity Activity: as per physical therapy Diet: low fat, low cholesterol, low salt diet, other ([place] thick liquid diet)
--- NOTE | 2019-06-20 13:01 | Physician Discharge Referral ---
ExtendedCare Referral Info Provider in Charge after Transfer: PCP Institutional Level of Care: Intermediate - Diagnosis (1) Urinary tract infection Priority: Primary Status: Acute (2) Acute on chronic diastolic CHF (congestive heart failure) Priority: Primary Status: Resolved (3) Acute respiratory failure with hypercapnia Priority: Primary Status: Acute (4) Acute encephalopathy Priority: Secondary Status: Acute (5) DVT prophylaxis Priority: Secondary Status: Acute (6) Elevated troponin Priority: Secondary Status: Acute (7) Decubitus ulcer of right leg, stage 4 Priority: Secondary Status: Acute (8) Severe protein-calorie malnutrition Priority: Secondary Status: Acute - Transfer Medications Prescriptions: LORazepam [Ativan] 0.25 mg PO QDPC 7 Days #7 tablet Ciprofloxacin HCl [Cipro] 500 mg PO BID 10 Days #20 tablet Furosemide [Lasix] 40 mg PO DAILY #30 tablet Tramadol HCl [Ultram] 50 mg PO Q12H PRN 4 Days #5 tablet PRN Reason: Pain Home Medications: Pantoprazole Sodium [Protonix] 40 mg PO DAILY 10/12/16 [History] Aspirin 81 mg PO DAILY 12/01/16 [History] Losartan Potassium [Cozaar] 50 mg PO BID #60 tab 12/03/16 [Rx] Metoprolol [Lopressor] 25 mg PO BID 11/04/17 [History] Lactobacillus Acidophilus [Acidophilus] 1 tab PO 0800,1600 12/02/17 [History] Multivit-Min/FA/Lycopen/Lutein [A Thru Z Select Multivit Tab] 1 tab PO DAILY 04/07/18 [History] Ascorbic Acid [Vitamin C with Afshan Hips] 500 mg PO DAILY 05/06/18 [History] Sertraline [Zoloft] 100 mg PO DAILY 05/06/18 [History] Nystatin Cream [Mycostatin Cream] 1 applic TP BID 03/22/19 [History] Amlodipine Besylate 7.5 mg PO DAILY 05/03/19 [History] Ipratropium/Albuterol Neb [Duoneb] 3 ml IH Q6HR PRN 05/03/19 [History] Menthol [Biofreeze] 1 appl TP 2100 05/03/19 [History] Acetaminophen [Tylenol] 325 mg PO Q6HR PRN 06/17/19 [History] Fluconazole [Diflucan] 200 mg PO 1600 06/17/19 [History] Mirtazapine 7.5 mg PO 199906/17/19 [History] Potassium Chloride [K-Tab ER] 10 meq PO 0800,1700 06/17/19 [History] Ciprofloxacin HCl [Cipro] 500 mg PO BID 10 Days #20 tablet 06/20/19 [Rx] Furosemide [Lasix] 40 mg PO DAILY #30 tablet 06/20/19 [Rx] LORazepam [Ativan] 0.25 mg PO QDPC 7 Days #7 tablet 06/20/19 [Rx] Tramadol HCl [Ultram] 50 mg PO Q12H PRN 4 Days #5 tablet 06/20/19 [Rx] Allergies/Adverse Reactions: Allergy/AdvReac Type Severity Reaction Status Date / Time aspirin AdvReac See Verified 06/17/19 22:09 Comments - Respiratory Orders Oxygen / L per min (2 l nc), Other (Bipap prn) Smoking Cessation: Smoking cessation has been advised. For more information, call the [facility] Tobacco Quit Line at 5-672-FGZD-NOW. - Advance Directives Code Status: DNR-Arrest/Don't Intubate - Mobility Orders Other (bed ridden) - Rehabiliation Orders Rehab Potential: Poor - Diet Orders No Added Salt (ORIANA) ([place]tar thick liquid diet) CERTIFICATION: I certify that the transfer of the above named patient to an Extended Care Facility is necessary for the continuing treatment of the diagnosis listed. The above information is true and accurate reflection of patient's current c ondition. Confidential - Redisclosure prohibited without a patient's written consent.
--- NOTE | 2019-06-20 15:14 | Electrocardiograph Report ---
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
== END 2019-06-20 15:10 | DRG 698 ==
LOC: EMEROOARM 16:31 → 3BNU 16:31 → SUATTDRO 19:53
PROVIDERS: ADMIT Internal Medicine; ATTEND Pharmacist